=== PATIENT | female | born 1935 | race Caucasian/White ===

== ENCOUNTER → 2020-03-27 10:09 | Outpatient (BNVA) | payer MEDICARE, SELFPAY | PROVIDERS: PCP Internal Medicine; Referring Provider Internal Medicine; Visit Provider Hospitalist | DX: J44.9 Chronic obstructive pulmonary disease, unspecified (principal); J96.10 Chronic respiratory failure, unspecified whether with hypoxia or hypercapnia; Z85.118 Personal history of other malignant neoplasm of bronchus and lung; Z90.2 Acquired absence of lung [part of] | CPT/HCPCS: 99212 ==

== ENCOUNTER → 2020-06-21 11:08 | Outpatient (BNVA) | payer MEDICARE, SELFPAY | PROVIDERS: PCP Internal Medicine; Visit Provider Surgery | DX: C50.911 Malignant neoplasm of unspecified site of right female breast (principal); Z79.810 Long term (current) use of selective estrogen receptor modulators (SERMs); Z17.0 Estrogen receptor positive status [ER+] | CPT/HCPCS: 99212 ==

== ENCOUNTER 2020-07-04 | Outpatient (REF) | payer MEDICARE, SELFPAY | END 2020-07-04 00:01 | disposition home or self-care (01) | LOC: HO.VC | PROVIDERS: Visit Provider Internal Medicine | DX: Z23 Encounter for immunization (principal) | CPT/HCPCS: 0011A ==

== ENCOUNTER 2020-07-13 11:44 | Outpatient (REF) | payer MEDICARE, SELFPAY ==
[2020-07-13 13:42] LABS: MANUAL DIFF FLAG NO
[2020-07-13 13:50] LABS: Basophils Absolute Auto 0.1 X10*3/uL (0.0-0.2); Basophils Percent Auto 0.6 % (0-2); Eosinophils Absolute Auto 0.1 X10*3/uL (0.0-0.4); Eosinophils Percent Auto 1.3 % (0-4); Hematocrit 40.4 % (37-47); Hemoglobin 12.2 g/dl (12.0-16.0); Imm Gran Abs Auto 0.02 X10*3/uL (0.00-0.03); Imm Gran Pct Auto 0.2 % (0.0-0.4); Lymphocytes Absolute Auto 1.7 X10*3/uL (1.2-4.9); Mean Corpuscular HGB Conc 30.2 g/dl (31.0-35.0); Mean Corpuscular Hemoglobin 29.7 pg (27.0-33.0); Mean Corpuscular Volume 98.3 fL (80-98); Mean Platelet Volume 11.5 fL (9.4-12.3); Monocytes Absolute Auto 0.9 X10*3/uL (0.1-1.2); Monocytes Percent Auto 10.4 % (2-11); Neutrophils Absolute Auto 5.4 X10*3/uL (2.0-8.3); Neutrophils Percent Auto 66.5 % (45-73); Platelet Count 235 X10*3/uL (160-400); Red Blood Count 4.11 X10*6/uL (4.20-5.50); Red Cell Distribution Width 13.4 % (11.0-16.0); White Blood Count 8.2 X10*3/uL (4.8-10.8)
[2020-07-13 14:16] LABS: B Type Natriuretic Peptide 311 pg/mL (<100)
[2020-07-13 14:18] LABS: Alanine Aminotransferase 12 U/L (0-31); Albumin Level 3.9 g/dL (3.5-5.0); Alkaline Phosphatase 49 U/L (39-117); Anion Gap 15 (12-20); Aspartate Amino Transferase 20 U/L (5-31); Bilirubin Total 0.6 mg/dL (0.0-1.0); Blood Urea Nitrogen 21 mg/dL (9-16); Calcium 8.8 mg/dL (8.4-10.2); Carbon Dioxide 30 mmol/L (22-29); Chloride 102 mmol/L (96-108); Estimated Glomerular Filt Rate 45; Glucose Random 155 mg/dL (60-115); Potassium 4.8 mmol/L (3.3-5.1); Sodium 142 mmol/L (135-145)
[2020-07-13 14:44] LABS: Free T4 (Free Thyroxine) 1.06 ng/dL (0.71-1.85); Thyroid Stimulating Hormone 1.71 uIU/mL (0.32-4.0)
[2020-07-13 15:25] LABS: Folate > 20.0 ng/mL (> or = 4.0); Vitamin B12 1095 pg/mL (200-900)
== END 2020-07-13 11:45 | disposition home or self-care (01) ==
LOC: HO.HMGCLDS 11:44
PROVIDERS: PCP Internal Medicine; Visit Provider Internal Medicine
DX: I10 Essential (primary) hypertension (principal); E78.00 Pure hypercholesterolemia, unspecified; I25.10 Atherosclerotic heart disease of native coronary artery without angina pectoris
CPT/HCPCS: 36415; 80053; 82607; 82746; 83880; 84439; 84443; 85025

== ENCOUNTER 2020-07-31 | Outpatient (REF) | payer MEDICARE, SELFPAY | END 2020-07-31 00:01 | disposition home or self-care (01) | LOC: HO.VC | PROVIDERS: Visit Provider Internal Medicine | DX: Z23 Encounter for immunization (principal) | CPT/HCPCS: 0012A ==

== ENCOUNTER 2020-10-20 08:23 | Outpatient (REF) | payer MEDICARE, SELFPAY ==
[2020-10-20 11:20] LABS: MANUAL DIFF FLAG NO
[2020-10-20 11:25] LABS: Basophils Percent Auto 0.4 % (0-2); Eosinophils Absolute Auto 0.1 X10*3/uL (0.0-0.4); Eosinophils Percent Auto 1.3 % (0-4); Hematocrit 37.2 % (37-47); Hemoglobin 11.1 g/dl (12.0-16.0); Imm Gran Abs Auto 0.02 X10*3/uL (0.00-0.03); Imm Gran Pct Auto 0.2 % (0.0-0.4); Lymphocytes Absolute Auto 2.9 X10*3/uL (1.2-4.9); Lymphocytes Percent Auto 28.7 % (20-40); Mean Corpuscular HGB Conc 29.8 g/dl (31.0-35.0); Mean Corpuscular Hemoglobin 28.9 pg (27.0-33.0); Mean Corpuscular Volume 96.9 fL (80-98); Mean Platelet Volume 11.3 fL (9.4-12.3); Monocytes Absolute Auto 1.1 X10*3/uL (0.1-1.2); Monocytes Percent Auto 11.1 % (2-11); Neutrophils Absolute Auto 5.9 X10*3/uL (2.0-8.3); Neutrophils Percent Auto 58.3 % (45-73); Platelet Count 199 X10*3/uL (160-400); Red Blood Count 3.84 X10*6/uL (4.20-5.50); Red Cell Distribution Width 13.5 % (11.0-16.0)
[2020-10-20 11:33] LABS: Estimated Average Glucose 126 mg/dL; Total Hemoglobin (HGBA1C) 2859.2688 umol/L
[2020-10-20 11:50] LABS: Alanine Aminotransferase 10 U/L (0-31); Albumin Level 3.9 g/dL (3.5-5.0); Alkaline Phosphatase 43 U/L (39-117); Anion Gap 14 (12-20); Aspartate Amino Transferase 17 U/L (5-31); Bilirubin Total 0.6 mg/dL (0.0-1.0); Blood Urea Nitrogen 25 mg/dL (9-16); Calcium 8.9 mg/dL (8.4-10.2); Carbon Dioxide 32 mmol/L (22-29); Chloride 101 mmol/L (96-108); Cholesterol 129 mg/dL; Estimated Glomerular Filt Rate 48; Glucose Random 97 mg/dL (60-115); HDL Cholesterol 41 mg/dL; LDL Cholesterol Calculated 59 mg/dl; Potassium 4.1 mmol/L (3.3-5.1); Sodium 143 mmol/L (135-145); Total Protein 6.8 g/dL (6.5-8.0); Triglycerides 147 mg/dL
[2020-10-20 11:56] LABS: B Type Natriuretic Peptide 347 pg/mL (<100)
[2020-10-20 12:13] LABS: Free T4 (Free Thyroxine) 0.95 ng/dL (0.71-1.85); Thyroid Stimulating Hormone 2.46 uIU/mL (0.32-4.0); Vitamin D 25-OH Total 38.7 ng/mL (>30)
[2020-10-22 10:14] LABS: Folate > 20.0 ng/mL (> or = 4.0); Vitamin B12 788 pg/mL (200-900)
== END 2020-10-20 08:24 | disposition home or self-care (01) ==
LOC: HO.HMGCLDS 08:23
PROVIDERS: PCP Internal Medicine; Visit Provider Internal Medicine
DX: E78.00 Pure hypercholesterolemia, unspecified (principal); I48.0 Paroxysmal atrial fibrillation
CPT/HCPCS: 36415; 80053; 80061; 82306; 82607; 82746; 83036; 83880; 84439; 84443; 85025

== ENCOUNTER → 2020-11-20 13:01 | Outpatient (BNVA) | payer MEDICARE, SELFPAY | PROVIDERS: PCP Internal Medicine; Visit Provider Hospitalist | DX: J96.11 Chronic respiratory failure with hypoxia (principal); J43.9 Emphysema, unspecified | CPT/HCPCS: 99212 ==

== ENCOUNTER 2021-01-07 10:35 | Outpatient (REF) | payer MEDICARE, SELFPAY ==
--- NOTE | ~2021-01-07 | MM_ITS ---
EXAMINATION: MM SCREENING DIGITAL BREAST TOMOSYNTHESIS, BILATERAL CLINICAL INFORMATION: Screening. Asymptomatic. Age 85. Prior history right lumpectomy for invasive breast cancer 02/23/2017. COMPARISON: Mammography: 12/19/2019, 12/17/2018, 12/18/2017, 01/26/2017 TECHNIQUE: Digital breast tomosynthesis is performed in both the craniocaudal and mediolateral oblique views along with computer-aided detection (CAD). Synthesized 2D images are generated from the tomosynthesis. Additional exaggerated right CC view is provided. FINDINGS: There are scattered areas of fibroglandular density (ACR BI-RADS breast composition Category b). There are no significant masses, abnormal calcifications, or other abnormalities. There is surgical clip right axilla. Some minor scarring on right consistent with the prior surgery is stable. There are no significant changes from prior exams. MM/MM tomosynthesis screening BI IMPRESSION: No mammographic evidence of malignancy. ASSESSMENT: BI-RADS 2: Benign RECOMMENDATION: Routine annual mammography screening. This patient's information was entered into a reminder system with a target due date for their next mammogram.
== END 2021-01-07 10:36 | disposition home or self-care (01) ==
LOC: HO.MAMMO 10:35
PROVIDERS: PCP Internal Medicine; Visit Provider Surgery
DX: Z12.31 Encounter for screening mammogram for malignant neoplasm of breast (principal)
CPT/HCPCS: 77063; 77067

== ENCOUNTER → 2021-01-09 10:23 | Outpatient (BNVA) | payer MEDICARE, SELFPAY | PROVIDERS: PCP Internal Medicine; Referring Provider Internal Medicine; Visit Provider Surgery | DX: Z85.3 Personal history of malignant neoplasm of breast (principal) | CPT/HCPCS: 99212 ==

== ENCOUNTER 2021-02-05 08:49 | Outpatient (REF) | payer MEDICARE, SELFPAY ==
[2021-02-05 11:34] LABS: MANUAL DIFF FLAG NO
[2021-02-05 11:45] LABS: Basophils Percent Auto 0.5 % (0-2); Eosinophils Absolute Auto 0.1 X10*3/uL (0.0-0.4); Hematocrit 40.8 % (37-47); Hemoglobin 12.2 g/dl (12.0-16.0); Imm Gran Abs Auto 0.03 X10*3/uL (0.00-0.03); Imm Gran Pct Auto 0.4 % (0.0-0.4); Lymphocytes Absolute Auto 1.9 X10*3/uL (1.2-4.9); Lymphocytes Percent Auto 22.9 % (20-40); Mean Corpuscular HGB Conc 29.9 g/dl (31.0-35.0); Mean Corpuscular Hemoglobin 28.4 pg (27.0-33.0); Mean Corpuscular Volume 95.1 fL (80-98); Mean Platelet Volume 11.2 fL (9.4-12.3); Monocytes Absolute Auto 0.8 X10*3/uL (0.1-1.2); Monocytes Percent Auto 9.9 % (2-11); Neutrophils Absolute Auto 5.3 X10*3/uL (2.0-8.3); Neutrophils Percent Auto 65.3 % (45-73); Platelet Count 207 X10*3/uL (160-400); Red Blood Count 4.29 X10*6/uL (4.20-5.50); Red Cell Distribution Width 14.2 % (11.0-16.0); Reticulocyte Percent 2.1 % (0.5-1.8); Reticulocytes Absolute 0.092 X10*6/uL (0.026-0.095); White Blood Count 8.1 X10*3/uL (4.8-10.8)
[2021-02-05 12:02] LABS: B Type Natriuretic Peptide 418 pg/mL (<100)
[2021-02-05 12:19] LABS: Alanine Aminotransferase 11 U/L (0-31); Albumin Level 4.1 g/dL (3.5-5.0); Alkaline Phosphatase 48 U/L (39-117); Anion Gap 12 (12-20); Aspartate Amino Transferase 21 U/L (5-31); Bilirubin Total 0.7 mg/dL (0.0-1.0); Blood Urea Nitrogen 25 mg/dL (9-16); Calcium 9.1 mg/dL (8.4-10.2); Carbon Dioxide 29 mmol/L (22-29); Chloride 105 mmol/L (96-108); Estimated Glomerular Filt Rate 48; Glucose Random 104 mg/dL (60-115); Iron 98 mcg/dL (30-160); Percent Iron Saturation 23 % (15-50); Potassium 4.2 mmol/L (3.3-5.1); Sodium 142 mmol/L (135-145); Total Iron Binding Capacity 424 mcg/dL (228-428); Total Protein 7.3 g/dL (6.5-8.0); Unsaturated Iron Binding 326 ug/dL
[2021-02-05 12:25] LABS: Ferritin 56 ng/mL (10-250)
[2021-02-05 12:39] LABS: Folate > 20.0 ng/mL (> or = 4.0); Vitamin B12 880 pg/mL (200-900)
== END 2021-02-05 08:50 | disposition home or self-care (01) ==
LOC: HO.HMGCLDS 08:49
PROVIDERS: PCP Internal Medicine; Visit Provider Internal Medicine
DX: J43.9 Emphysema, unspecified (principal); J96.11 Chronic respiratory failure with hypoxia; I50.9 Heart failure, unspecified; D64.9 Anemia, unspecified; I48.0 Paroxysmal atrial fibrillation; Z85.118 Personal history of other malignant neoplasm of bronchus and lung; Z99.81 Dependence on supplemental oxygen; Z87.891 Personal history of nicotine dependence
CPT/HCPCS: 36415; 80053; 82607; 82728; 82746; 83540; 83880; 85025; 85045; 99212

== ENCOUNTER 2021-05-13 09:09 | Outpatient (REF) | payer MEDICARE, SELFPAY ==
[2021-05-13 11:45] LABS: MANUAL DIFF FLAG NO
[2021-05-13 11:59] LABS: Basophils Absolute Auto 0.1 X10*3/uL (0.0-0.2); Basophils Percent Auto 0.7 % (0-2); Eosinophils Absolute Auto 0.1 X10*3/uL (0.0-0.4); Eosinophils Percent Auto 1.4 % (0-4); Hematocrit 41.4 % (37.0-47.0); Hemoglobin 12.5 g/dl (12.0-16.0); Imm Gran Abs Auto 0.03 X10*3/uL (0.00-0.03); Imm Gran Pct Auto 0.3 % (0.0-0.4); Lymphocytes Absolute Auto 2.2 X10*3/uL (1.2-4.9); Lymphocytes Percent Auto 25.4 % (20-40); Mean Corpuscular HGB Conc 30.2 g/dl (31.0-35.0); Mean Corpuscular Hemoglobin 29.4 pg (27.0-33.0); Mean Corpuscular Volume 97.4 fL (80.0-98.0); Mean Platelet Volume 11.6 fL (9.4-12.3); Monocytes Absolute Auto 0.8 X10*3/uL (0.1-1.2); Monocytes Percent Auto 9.5 % (2-11); Neutrophils Absolute Auto 5.4 x10*3/uL (2.0-8.3); Neutrophils Percent Auto 62.7 % (45-73); Platelet Count 217 X10*3/uL (160-400); Red Blood Count 4.25 X10*6/uL (4.20-5.50); Red Cell Distribution Width 13.8 % (11.0-16.0); White Blood Count 8.7 X10*3/uL (4.8-10.8)
[2021-05-13 12:15] LABS: B Type Natriuretic Peptide 332 pg/mL (<100)
[2021-05-13 12:29] LABS: Alanine Aminotransferase 11 U/L (0-31); Albumin Level 3.9 g/dL (3.5-5.0); Alkaline Phosphatase 43 U/L (39-117); Anion Gap 14 (12-20); Aspartate Amino Transferase 21 U/L (5-31); Bilirubin Total 0.7 mg/dL (0.0-1.0); Blood Urea Nitrogen 25 mg/dL (9-16); Calcium 8.9 mg/dL (8.4-10.2); Carbon Dioxide 28 mmol/L (22-29); Chloride 103 mmol/L (96-108); Estimated Glomerular Filt Rate 48; Glucose Random 106 mg/dL (60-115); Sodium 141 mmol/L (135-145)
== END 2021-05-13 09:10 | disposition home or self-care (01) ==
LOC: HO.HMGCLDS 09:09
PROVIDERS: PCP Internal Medicine; Visit Provider Internal Medicine
DX: I50.9 Heart failure, unspecified (principal)
CPT/HCPCS: 36415; 80053; 83880; 85025

== ENCOUNTER → 2021-08-05 11:40 | Outpatient (BNVA) | payer MEDICARE, SELFPAY | PROVIDERS: PCP Internal Medicine; Referring Provider Internal Medicine; Visit Provider Surgery | DX: Z85.3 Personal history of malignant neoplasm of breast (principal) | CPT/HCPCS: 99212 ==

== ENCOUNTER 2021-09-09 08:49 | Outpatient (REF) | payer MEDICARE, SELFPAY ==
[2021-09-09 11:09] LABS: MANUAL DIFF FLAG NO
[2021-09-09 11:32] LABS: Basophils Percent Auto 0.4 % (0-2); Eosinophils Absolute Auto 0.1 X10*3/uL (0.0-0.4); Eosinophils Percent Auto 0.9 % (0-4); Hematocrit 40.9 % (37.0-47.0); Hemoglobin 12.3 g/dl (12.0-16.0); Imm Gran Abs Auto 0.04 X10*3/uL (0.00-0.03); Imm Gran Pct Auto 0.4 % (0.0-0.4); Lymphocytes Absolute Auto 2.1 X10*3/uL (1.2-4.9); Lymphocytes Percent Auto 21.1 % (20-40); Mean Corpuscular HGB Conc 30.1 g/dl (31.0-35.0); Mean Corpuscular Hemoglobin 29.6 pg (27.0-33.0); Mean Corpuscular Volume 98.6 fL (80.0-98.0); Mean Platelet Volume 11.7 fL (9.4-12.3); Monocytes Percent Auto 9.9 % (2-11); Neutrophils Absolute Auto 6.6 x10*3/uL (2.0-8.3); Neutrophils Percent Auto 67.3 % (45-73); Platelet Count 194 X10*3/uL (160-400); Red Blood Count 4.15 X10*6/uL (4.20-5.50); Red Cell Distribution Width 13.1 % (11.0-16.0); White Blood Count 9.9 X10*3/uL (4.8-10.8)
[2021-09-09 11:43] LABS: Alanine Aminotransferase 10 U/L (0-31); Albumin Level 3.9 g/dL (3.5-5.0); Alkaline Phosphatase 45 U/L (39-117); Anion Gap 15 (12-20); Aspartate Amino Transferase 20 U/L (5-31); Bilirubin Total 0.8 mg/dL (0.0-1.0); Blood Urea Nitrogen 23 mg/dL (9-16); Carbon Dioxide 28 mmol/L (22-29); Chloride 102 mmol/L (96-108); Estimated Glomerular Filt Rate 50; Glucose Random 120 mg/dL (60-115); Potassium 3.9 mmol/L (3.3-5.1); Sodium 141 mmol/L (135-145)
[2021-09-09 11:53] LABS: B Type Natriuretic Peptide 496 pg/mL (<100)
== END 2021-09-09 08:50 | disposition home or self-care (01) ==
LOC: HO.HMGCLDS 08:49
PROVIDERS: PCP Internal Medicine; Visit Provider Internal Medicine
DX: I50.9 Heart failure, unspecified (principal)
CPT/HCPCS: 36415; 80053; 83880; 85025

== ENCOUNTER → 2021-10-01 11:02 | Outpatient (BNVA) | payer MEDICARE, SELFPAY | PROVIDERS: PCP Internal Medicine; Visit Provider Hospitalist | DX: J43.9 Emphysema, unspecified (principal); J96.11 Chronic respiratory failure with hypoxia; I50.9 Heart failure, unspecified; Z79.899 Other long term (current) drug therapy; Z99.81 Dependence on supplemental oxygen | CPT/HCPCS: 99212 ==

== ENCOUNTER 2021-10-29 09:28 | Outpatient (REF) | payer MEDICARE, SELFPAY ==
[2021-10-29 11:21] LABS: MANUAL DIFF FLAG NO
[2021-10-29 11:36] LABS: Basophils Absolute Auto 0.1 X10*3/uL (0.0-0.2); Basophils Percent Auto 0.6 % (0-2); Eosinophils Absolute Auto 0.1 X10*3/uL (0.0-0.4); Eosinophils Percent Auto 1.2 % (0-4); Hematocrit 39.2 % (37.0-47.0); Hemoglobin 11.8 g/dl (12.0-16.0); Imm Gran Abs Auto 0.02 X10*3/uL (0.00-0.03); Imm Gran Pct Auto 0.2 % (0.0-0.4); Lymphocytes Absolute Auto 1.9 X10*3/uL (1.2-4.9); Lymphocytes Percent Auto 22.4 % (20-40); Mean Corpuscular HGB Conc 30.1 g/dl (31.0-35.0); Mean Corpuscular Hemoglobin 29.4 pg (27.0-33.0); Mean Corpuscular Volume 97.5 fL (80.0-98.0); Mean Platelet Volume 11.7 fL (9.4-12.3); Monocytes Absolute Auto 0.9 X10*3/uL (0.1-1.2); Monocytes Percent Auto 10.6 % (2-11); Neutrophils Absolute Auto 5.5 x10*3/uL (2.0-8.3); Platelet Count 207 X10*3/uL (160-400); Red Blood Count 4.02 X10*6/uL (4.20-5.50); Red Cell Distribution Width 13.9 % (11.0-16.0); White Blood Count 8.4 X10*3/uL (4.8-10.8)
[2021-10-29 12:03] LABS: Estimated Average Glucose 131 mg/dL; Hemoglobin A1c % 6.2 %
[2021-10-29 12:06] LABS: B Type Natriuretic Peptide 358 pg/mL (<100)
[2021-10-29 12:30] LABS: Free T4 (Free Thyroxine) 1.08 ng/dL (0.71-1.85); Thyroid Stimulating Hormone 2.15 uIU/mL (0.32-4.0); Vitamin D 25-OH Total 37.9 ng/mL (>30)
[2021-10-29 12:36] LABS: Alanine Aminotransferase 12 U/L (0-31); Albumin Level 3.8 g/dL (3.5-5.0); Alkaline Phosphatase 45 U/L (39-117); Anion Gap 13 (12-20); Aspartate Amino Transferase 20 U/L (5-31); Bilirubin Total 0.7 mg/dL (0.0-1.0); Blood Urea Nitrogen 24 mg/dL (9-16); Calcium 9.2 mg/dL (8.4-10.2); Carbon Dioxide 31 mmol/L (22-29); Chloride 102 mmol/L (96-108); Cholesterol 138 mg/dL; Estimated Glomerular Filt Rate 48; Glucose Random 108 mg/dL (60-115); HDL Cholesterol 39 mg/dL; LDL Cholesterol Calculated 67 mg/dl; Potassium 4.3 mmol/L (3.3-5.1); Sodium 142 mmol/L (135-145); Total Protein 7.2 g/dL (6.5-8.0); Triglycerides 163 mg/dL
[2021-10-29 12:49] LABS: Folate > 20.0 ng/mL (> or = 4.0); Vitamin B12 579 pg/mL (200-900)
== END 2021-10-29 09:29 | disposition home or self-care (01) ==
LOC: HO.HMGCLDS 09:28
PROVIDERS: PCP Internal Medicine; Visit Provider Internal Medicine
DX: I50.9 Heart failure, unspecified (principal); E78.00 Pure hypercholesterolemia, unspecified; E11.9 Type 2 diabetes mellitus without complications; M81.0 Age-related osteoporosis without current pathological fracture
CPT/HCPCS: 36415; 80053; 80061; 82306; 82607; 82746; 83036; 83880; 84439; 84443; 85025

== ENCOUNTER 2022-01-09 10:55 | Outpatient (REF) | payer MEDICARE, SELFPAY ==
--- NOTE | ~2022-01-09 | MM_ITS ---
EXAMINATION: MM SCREENING DIGITAL BREAST TOMOSYNTHESIS, BILATERAL CLINICAL INFORMATION: Screening. Asymptomatic. COMPARISON: Mammography: 01/07/2021, 12/19/2019, 12/17/2018 TECHNIQUE: Digital breast tomosynthesis is performed in both the craniocaudal and mediolateral oblique views along with computer-aided detection (CAD). Synthesized 2D images are generated from the tomosynthesis. FINDINGS: There are scattered areas of fibroglandular density (ACR BI-RADS breast composition Category b). There are no significant masses, abnormal calcifications, or other abnormalities. No developing density or interval architectural abnormality. Right axillary surgical clips again seen. There are scattered vascular calcifications. No significant changes. MM/MM tomosynthesis screening BI IMPRESSION: No mammographic evidence of malignancy. ASSESSMENT: BI-RADS 2: Benign RECOMMENDATION: Routine annual mammography screening. This patient's information was entered into a reminder system with a target due date for their next mammogram.
== END 2022-01-09 10:56 | disposition home or self-care (01) ==
LOC: HO.MAMMO 10:55
PROVIDERS: PCP Internal Medicine; Visit Provider Internal Medicine
DX: Z12.31 Encounter for screening mammogram for malignant neoplasm of breast (principal)
CPT/HCPCS: 77063; 77067

== ENCOUNTER 2022-02-06 09:18 | Outpatient (REF) | payer MEDICARE, SELFPAY ==
[2022-02-06 11:17] LABS: MANUAL DIFF FLAG NO
[2022-02-06 11:45] LABS: Basophils Absolute Auto 0.1 X10*3/uL (0.0-0.2); Basophils Percent Auto 0.6 % (0-2); Eosinophils Absolute Auto 0.1 X10*3/uL (0.0-0.4); Eosinophils Percent Auto 1.3 % (0-4); Hematocrit 39.6 % (37.0-47.0); Hemoglobin 12.1 g/dl (12.0-16.0); Imm Gran Abs Auto 0.03 X10*3/uL (0.00-0.03); Imm Gran Pct Auto 0.3 % (0.0-0.4); Immature Retic Fraction 11.5 % (3.0-15.9); Lymphocytes Absolute Auto 2.3 X10*3/uL (1.2-4.9); Lymphocytes Percent Auto 24.7 % (20-40); Mean Corpuscular HGB Conc 30.6 g/dl (31.0-35.0); Mean Corpuscular Hemoglobin 29.4 pg (27.0-33.0); Mean Corpuscular Volume 96.1 fL (80.0-98.0); Mean Platelet Volume 11.8 fL (9.4-12.3); Monocytes Percent Auto 10.9 % (2-11); Neutrophils Absolute Auto 5.8 x10*3/uL (2.0-8.3); Neutrophils Percent Auto 62.2 % (45-73); Platelet Count 197 X10*3/uL (160-400); Red Blood Count 4.12 X10*6/uL (4.20-5.50); Red Cell Distribution Width 13.5 % (11.0-16.0); Retic HGB Equivalent 32.5 pg (30.0-35.0); Reticulocytes Absolute 0.083 X10*6/uL (0.026-0.095); White Blood Count 9.3 X10*3/uL (4.8-10.8)
[2022-02-06 12:14] LABS: B Type Natriuretic Peptide 391 pg/mL (<100)
[2022-02-06 12:32] LABS: Alanine Aminotransferase 11 U/L (0-31); Albumin Level 3.8 g/dL (3.5-5.0); Alkaline Phosphatase 50 U/L (39-117); Anion Gap 17 (12-20); Aspartate Amino Transferase 21 U/L (5-31); Bilirubin Total 0.9 mg/dL (0.0-1.0); Blood Urea Nitrogen 23 mg/dL (9-16); Calcium 8.9 mg/dL (8.4-10.2); Carbon Dioxide 31 mmol/L (22-29); Chloride 100 mmol/L (96-108); Estimated Glomerular Filt Rate 51; Glucose Random 121 mg/dL (60-115); Iron 78 mcg/dL (30-160); Percent Iron Saturation 19 % (15-50); Sodium 144 mmol/L (135-145); Total Iron Binding Capacity 405 mcg/dL (228-428); Total Protein 7.1 g/dL (6.5-8.0); Unsaturated Iron Binding 327 ug/dL
[2022-02-06 12:55] LABS: Ferritin 75 ng/mL (10-250)
== END 2022-02-06 09:19 | disposition home or self-care (01) ==
LOC: HO.HMGCLDS 09:18
PROVIDERS: PCP Internal Medicine; Visit Provider Internal Medicine
DX: I50.9 Heart failure, unspecified (principal)
CPT/HCPCS: 36415; 80053; 82728; 83540; 83880; 85025; 85045

== ENCOUNTER 2022-02-27 10:52 | Outpatient (REF) | payer MEDICARE, SELFPAY ==
--- NOTE | ~2022-02-27 | MM_ITS ---
EXAMINATION: BONE DENSITOMETRY CLINICAL INDICATION: Age-related osteoporosis without current pathological fracture. COMPARISON: Previous BD dated 01/25/2020 and baseline BD dated 03/10/2017. TECHNIQUE: Using a [employer] DXA System (software version: 13.1) manufactured by [employer], dual-energy x-ray absorptiometry was performed of the lumbar spine and left hip. The images are of good technical quality. Summary results are attached. FINDINGS: AP SPINE L1-L4: Current: BMD 1.217 g/cm2, Z-score 1.7, T-score 0.3, normal, 4.8% decrease from previous, 6.8% increase from baseline (<5% change is not significant). Prior: BMD 1.279 g/cm2. Baseline: BMD 1.140 g/cm2. LEFT FEMUR, NECK: Current: BMD 0.740 g/cm2, Z-score 0.0, T-score -2.1, osteopenia. Prior: BMD 0.722 g/cm2. Baseline: BMD 0.739 g/cm2. LEFT FEMUR, TOTAL: Current: BMD 0.871 g/cm2, Z-score 0.9, T-score -1.1, osteopenia, 2.6% decrease from previous, 1.2% decrease from baseline (<5% change is not significant). Prior: BMD 0.894 g/cm2. Baseline: BMD 0.882 g/cm2. IDENTIFIED RISK FACTORS: Menopause. HISTORY OF FRACTURE: None listed. MEDICATIONS: Vitamin D. MM/XR DEXA axial skeleton IMPRESSION: 1. DIAGNOSIS: Osteopenia based on the lowest T-score value of -2.1 in the femoral neck applying World Health Organization criteria. 2. 10-YEAR FRACTURE RISK PREDICTION, FRAX: Major osteoporotic fracture (clinical spine, forearm, hip or shoulder) 14.2%. Hip fracture 4.6%. 3. Treatment Recommendations: NOF guidelines recommend consideration for treatment in postmenopausal women and men age 50 and older presenting with the following: -A hip or vertebral (clinical or morphometric) fracture. -T-score less than or equal to -2.5 at the femoral neck or spine after appropriate evaluation to exclude secondary causes. -Low bone mass at the hip or spine and a 10-year fracture probability by FRAX of greater than or equal to 3% for hip fracture or greater than or equal to 20% for major osteoporotic fracture based on the [place] adapted WHO algorithm. 4. Other Recommendations: All treatment decisions require clinical judgment and consideration of individual patient factors, including patient preferences, comorbidities, previous drug use, risk factors not captured in the FRAX model (e.g. frailty, falls, vitamin D deficiency, increased bone turnover, interval significant decline in bone density) and possible under or overestimation of fracture risk by FRAX. Additional medical evaluation for secondary cause of low bone mineral density may be appropriate. FUTURE SCAN RECOMMENDATION: People with diagnosed cases of osteoporosis or at high risk for fracture should have regular bone mineral density tests. For patients eligible for Medicare, routine testing is allowed once every 2 years. The testing frequency can be increased to one year for patients who have rapidly progressing disease, those who are receiving or discontinuing medical therapy to restore bone mass, or have additional risk factors.
== END 2022-02-27 10:53 | disposition home or self-care (01) ==
LOC: HO.MAMMO 10:52
PROVIDERS: PCP Internal Medicine; Visit Provider Internal Medicine
DX: Z13.820 Encounter for screening for osteoporosis (principal); M81.0 Age-related osteoporosis without current pathological fracture; Z78.0 Asymptomatic menopausal state
CPT/HCPCS: 77080

== ENCOUNTER 2022-06-05 09:22 | Outpatient (REF) | payer MEDICARE, SELFPAY ==
[2022-06-05 11:21] LABS: MANUAL DIFF FLAG NO
[2022-06-05 11:44] LABS: Basophils Absolute Auto 0.1 X10*3/uL (0.0-0.2); Basophils Percent Auto 0.6 % (0-2); Eosinophils Absolute Auto 0.1 X10*3/uL (0.0-0.4); Eosinophils Percent Auto 1.2 % (0-4); Hematocrit 40.3 % (37.0-47.0); Hemoglobin 12.3 g/dl (12.0-16.0); Imm Gran Abs Auto 0.03 X10*3/uL (0.00-0.03); Imm Gran Pct Auto 0.4 % (0.0-0.4); Lymphocytes Percent Auto 23.9 % (20-40); Mean Corpuscular HGB Conc 30.5 g/dl (31.0-35.0); Mean Corpuscular Hemoglobin 28.7 pg (27.0-33.0); Mean Corpuscular Volume 93.9 fL (80.0-98.0); Mean Platelet Volume 11.7 fL (9.4-12.3); Monocytes Absolute Auto 0.9 X10*3/uL (0.1-1.2); Monocytes Percent Auto 10.9 % (2-11); Neutrophils Absolute Auto 5.3 x10*3/uL (2.0-8.3); Platelet Count 188 X10*3/uL (160-400); Red Blood Count 4.29 X10*6/uL (4.20-5.50); Red Cell Distribution Width 14.2 % (11.0-16.0); White Blood Count 8.4 X10*3/uL (4.8-10.8)
[2022-06-05 11:52] LABS: Estimated Average Glucose 131 mg/dL; Hemoglobin A1c % 6.2 %
[2022-06-05 12:05] LABS: Alanine Aminotransferase 8 U/L (0-31); Albumin Level 3.7 g/dL (3.5-5.0); Alkaline Phosphatase 54 U/L (39-117); Anion Gap 13 (12-20); Aspartate Amino Transferase 19 U/L (5-31); Bilirubin Total 0.9 mg/dL (0.0-1.0); Blood Urea Nitrogen 20 mg/dL (9-16); Calcium 8.9 mg/dL (8.4-10.2); Carbon Dioxide 31 mmol/L (22-29); Chloride 103 mmol/L (96-108); Estimated Glomerular Filt Rate 48; Glucose Random 112 mg/dL (60-115); Potassium 4.1 mmol/L (3.3-5.1); Sodium 143 mmol/L (135-145); Total Protein 6.8 g/dL (6.5-8.0)
[2022-06-05 12:09] LABS: B Type Natriuretic Peptide 390 pg/mL (<100)
[2022-06-05 12:31] LABS: Vitamin D 25-OH Total 35.2 ng/mL (>30)
[2022-06-05 12:39] LABS: Folate > 20.0 ng/mL (> or = 4.0); Vitamin B12 837 pg/mL (200-900)
== END 2022-06-05 09:23 | disposition home or self-care (01) ==
LOC: HO.HMGCLDS 09:22
PROVIDERS: PCP Internal Medicine; Visit Provider Internal Medicine
DX: E11.65 Type 2 diabetes mellitus with hyperglycemia (principal); I50.9 Heart failure, unspecified
CPT/HCPCS: 36415; 80053; 82306; 82607; 82746; 83036; 83880; 85025

== ENCOUNTER 2022-08-20 11:13 | Outpatient (REF) | payer MEDICARE, SELFPAY ==
--- NOTE | ~2022-08-20 | XR_ITS ---
EXAMINATION: XR CHEST CLINICAL INFORMATION: Chronic obstructive pulmonary disease COMPARISON: 02/21/2020 TECHNIQUE: 2 views of the chest were obtained. FINDINGS: Exam is similar to previous. Chronic changes in the mid to lower lung zone on the right. The left lung is grossly clear comparable to previous. There is no effusion. No failure. Surgical clips associated with the mediastinum similar position to previous. The hilar regions are felt to be comparable. XR/XR chest 2V IMPRESSION: No convincing evidence for an acute process.
[2022-08-20 13:43] LABS: MANUAL DIFF FLAG NO
[2022-08-20 13:59] LABS: Basophils Absolute Auto 0.1 X10*3/uL (0.0-0.2); Basophils Percent Auto 0.7 % (0-2); Eosinophils Percent Auto 0.5 % (0-4); Hematocrit 40.9 % (37.0-47.0); Hemoglobin 12.2 g/dl (12.0-16.0); Imm Gran Abs Auto 0.03 X10*3/uL (0.00-0.03); Imm Gran Pct Auto 0.4 % (0.0-0.4); Lymphocytes Absolute Auto 1.4 X10*3/uL (1.2-4.9); Lymphocytes Percent Auto 17.4 % (20-40); Mean Corpuscular HGB Conc 29.8 g/dl (31.0-35.0); Mean Corpuscular Hemoglobin 28.9 pg (27.0-33.0); Mean Corpuscular Volume 96.9 fL (80.0-98.0); Mean Platelet Volume 11.9 fL (9.4-12.3); Monocytes Absolute Auto 0.9 X10*3/uL (0.1-1.2); Monocytes Percent Auto 10.7 % (2-11); Neutrophils Absolute Auto 5.7 x10*3/uL (2.0-8.3); Neutrophils Percent Auto 70.3 % (45-73); Platelet Count 274 X10*3/uL (160-400); Red Blood Count 4.22 X10*6/uL (4.20-5.50); Red Cell Distribution Width 14.4 % (11.0-16.0); White Blood Count 8.1 X10*3/uL (4.8-10.8)
[2022-08-20 14:11] LABS: Alanine Aminotransferase 12 U/L (0-31); Albumin Level 3.7 g/dL (3.5-5.0); Alkaline Phosphatase 59 U/L (39-117); Anion Gap 15 (12-20); Aspartate Amino Transferase 19 U/L (5-31); Bilirubin Total 1.1 mg/dL (0.0-1.0); Blood Urea Nitrogen 19 mg/dL (9-16); Calcium 8.9 mg/dL (8.4-10.2); Carbon Dioxide 33 mmol/L (22-29); Chloride 99 mmol/L (96-108); Estimated Glomerular Filt Rate 51; Glucose Random 149 mg/dL (60-115); Potassium 4.3 mmol/L (3.3-5.1); Sodium 143 mmol/L (135-145)
[2022-08-20 14:34] LABS: B Type Natriuretic Peptide 390 pg/mL (<100)
== END 2022-08-20 11:14 | disposition home or self-care (01) ==
LOC: HO.HMGCX 11:13
PROVIDERS: PCP Internal Medicine; Visit Provider Internal Medicine
DX: I50.9 Heart failure, unspecified (principal); J44.9 Chronic obstructive pulmonary disease, unspecified
CPT/HCPCS: 36415; 71046; 80053; 83880; 85025

== ENCOUNTER 2022-12-11 09:54 | Outpatient (REF) | payer MEDICARE, SELFPAY ==
[2022-12-11 13:14] LABS: MANUAL DIFF FLAG NO
[2022-12-11 13:38] LABS: Basophils Percent Auto 0.4 % (0-2); Eosinophils Absolute Auto 0.1 X10*3/uL (0.0-0.4); Eosinophils Percent Auto 0.8 % (0-4); Hematocrit 39.3 % (37.0-47.0); Hemoglobin 11.3 g/dl (12.0-16.0); Imm Gran Abs Auto 0.04 X10*3/uL (0.00-0.03); Imm Gran Pct Auto 0.4 % (0.0-0.4); Lymphocytes Absolute Auto 1.6 X10*3/uL (1.2-4.9); Lymphocytes Percent Auto 15.5 % (20-40); Mean Corpuscular HGB Conc 28.8 g/dl (31.0-35.0); Mean Corpuscular Hemoglobin 27.8 pg (27.0-33.0); Mean Corpuscular Volume 96.8 fL (80.0-98.0); Monocytes Absolute Auto 1.2 X10*3/uL (0.1-1.2); Monocytes Percent Auto 11.9 % (2-11); Neutrophils Absolute Auto 7.1 x10*3/uL (2.0-8.3); Platelet Count 228 X10*3/uL (160-400); Red Blood Count 4.06 X10*6/uL (4.20-5.50)
[2022-12-11 13:45] LABS: Estimated Average Glucose 126 mg/dL
[2022-12-11 13:59] LABS: Alanine Aminotransferase 7 U/L (0-31); Albumin Level 3.9 g/dL (3.5-5.0); Alkaline Phosphatase 71 U/L (39-117); Anion Gap 15 (12-20); Aspartate Amino Transferase 17 U/L (5-31); Bilirubin Total 1.4 mg/dL (0.0-1.0); Blood Urea Nitrogen 20 mg/dL (9-16); Calcium 10.1 mg/dL (8.4-10.2); Carbon Dioxide 33 mmol/L (22-29); Chloride 101 mmol/L (96-108); Cholesterol 135 mg/dL; Estimated Glomerular Filt Rate 60; Glucose Random 143 mg/dL (60-115); HDL Cholesterol 42 mg/dL; LDL Cholesterol Calculated 78 mg/dl; Potassium 4.1 mmol/L (3.3-5.1); Sodium 145 mmol/L (135-145); Total Protein 7.9 g/dL (6.5-8.0); Triglycerides 79 mg/dL
[2022-12-11 14:19] LABS: Vitamin D 25-OH Total 37.7 ng/mL (>30)
[2022-12-11 14:22] LABS: Folate 15.6 ng/mL (> or = 4.0); Vitamin B12 1130 pg/mL (200-900)
[2022-12-11 14:27] LABS: B Type Natriuretic Peptide 534 pg/mL (<100)
== END 2022-12-11 09:55 | disposition home or self-care (01) ==
LOC: HO.HMGCLDS 09:54
PROVIDERS: PCP Internal Medicine; Visit Provider Internal Medicine
DX: I50.9 Heart failure, unspecified (principal); E11.65 Type 2 diabetes mellitus with hyperglycemia; E78.00 Pure hypercholesterolemia, unspecified; E55.9 Vitamin D deficiency, unspecified
CPT/HCPCS: 36415; 80053; 80061; 82306; 82607; 82746; 83036; 83880; 84439; 84443; 85025

== ENCOUNTER 2023-01-01 10:50 | Outpatient (AMB) | payer MEDICARE, SELFPAY ==
[2023-01-01 11:20] VITALS: BP 138/72; O2SAT 90; BMI 33.6
--- NOTE | 2023-01-01 11:20 | MHC.PC.OV ---
Vital Signs 01/01/23 11:20 Height 5 ft Weight 172 lb BMI 33.6 BP 138/72 Blood Pressure Location Lt brachial Position Sitting Pulse Source Pulse Oximeter Pulse Oximetry (%) 90 L Oxygen Delivery Method Nasal Cannula Intake Visit Reasons: CHF, A fib Allergies ADONIS Inhibitors [Adonis Inhibitors] Allergy (Severe, Verified 01/01/23 11:21) ANGIOEDEMA Sulfa (Sulfonamide Antibiotics) [Sulfa (Sulfonamides)] Allergy (Intermediate, Verified 01/01/23 11:21) CHILLS Tobacco use date assessed: 06/12/22 Fall risk assessment: No Falls in past year Last assessed Fall Risk: 01/01/23 Dental Screening Dental Screen Date: 01/01/23 Did you have a dental visit in the last 12 months?: Yes Did you have a dental problem in the last 6 months where you did not have access to dental care?: No Was dental information given to patient?: Patient has dentist HPI CHF, A fib HPI Details 87-year-old obese female with diabetes mellitus controlled atrial fibrillation with congestive heart failure coronary artery disease hypertension hypercholesterolemia and COPD last seen in August and was advised blood work. Patient is here for follow-up. PAtient was feeling sick ;last month and advisedx hospital but patient declined - presently better- had chest pain-. increased Oxygen to constant flow [facility] Medical History (Updated 06/12/22 @ 12:51 by Radha Ramsey MD) Age-related osteoporosis without current pathological fracture Anemia Atrial fibrillation Breast cancer Congestive heart failure COPD (chronic obstructive pulmonary disease) Coronary artery disease Degenerative disc disease Diverticular disease History of right breast cancer HTN (hypertension) Hypercholesterolemia Mesenteric ischemia Obesity (BMI 30-39.9) Peripheral vascular disease Small cell lung cancer, right lower lobe TIA (transient ischemic attack) Surgical History H/O resection of small bowel History of lumpectomy of right breast Family History (Updated 09/23/22 @ 10:04 by Renetta Sumner CMA) Father Heart disease Mother Heart disease Brother Multiple myeloma Brother Lung cancer Social History Household Members: None Housing: Apartment Are you a primary reproductive healthcare assistant to a significant other at home: No Do you presently have visiting nurse or other home services: No Alcohol intake: never Patient Tobacco Use Status: Former Tobacco user Tobacco use type: Cigarette e-Cigarette/Vaping Use: Never Used Second Hand Smoke Exposure: No service: No Current occupational status: retired Current occupational exposures/hazards: No Cognitive needs: No Hearing needs: Yes Vision needs: Yes Questionnaire PHQ-9 Over the last 2 weeks, how often have you been bothered by any of the following problems? 1. Little interest or pleasure in doing things: not at all 2. Feeling down, depressed, or hopeless: not at all 3. Trouble falling or staying asleep, or sleeping too much: not at all 4. Feeling tired or having little energy: not at all 5. Poor appetite or overeating: not at all 6. Feeling bad about yourself - or that you are a failure or have let yourself or your family down: not at all 7. Trouble concentrating on things, such as reading the newspaper or watching television: not at all 8. Moving or speaking so slowly that other people could have noticed. Or the opposite - being so fidgety or restless that you have been moving around a lot more than usual: not at all 9. Thoughts that you would be better off or of hurting yourself in some way: not at all Total score: 0 Depression Screening Interpretation: Negative Source: Developed by Drs. Navin Almeida, Ene Fuentes, James Miller and colleagues, with an educational daniel from [employer]. Thrive Questionnaire Date Thrive assessed: 06/12/22 AUDIT C Alcohol Use Questionnaire (AUDIT-C) 1. How often do you have a drink containing alcohol?: Monthly or less 2. How many drinks containing alcohol do you have on a typical day when you are drinking?: 1 or 2 3. How often do you have six or more drinks on one occasion?: Never Total Score: 1 DILLON-7 AMB Questionnaire DILLON-7 Date DILLON - 7 assessed: 06/12/22 Source: Developed by Drs. Navin Almeida, Ene Fuentes, James Miller and colleagues, with an educational daniel from [employer]. Physical exam (Primary Care) Vital Signs: Last Vital Signs BP 138/72 01/01/23 11:20 Pulse Ox 90 L 01/01/23 11:20 Oxygen Delivery Method Nasal Cannula 01/01/23 11:20 BMI result Body Mass Index 33.6 Tobacco/Smoking Status: Tobacco use Status Tobacco use date assessed 06/12/22 01/01/23 11:21 Patient Tobacco Use Status Former Tobacco user 01/01/23 11:21 Tobacco use type Cigarette 01/01/23 11:21 e-Cigarette/Vaping Use Never Used 01/01/23 11:21 PHQ-9: PHQ-9 Score PHQ-9: Total score 0 01/01/23 11:47 Depression Screening Interpretation: Negative Thrive Assessment: Date of Thrive Assessment Date Thrive assessed 06/12/22 01/01/23 11:21 Const General: alert; No acute distress Eyes Conjunctivae: conjunctivae normal Resp Auscultation: clear to auscultation bilaterally Cardio Rate: regular rate Rhythm: regular rhythm GI Inspection: Yes normal to inspection Extrem General: Yes normal to inspection and No edema Assessment and Plan Assessment & Plan (1) Type 2 diabetes mellitus with hyperglycemia: Code(s): E11.65 - Type 2 diabetes mellitus with hyperglycemia Plan: Decrease the amount of carbohydrate intake, pasta, bread, rice and potatoes are all sugar and that is aside from all the sweet stuff, remember that fruits are good but they are Sweet also. Hemoglobin A1c goal of less than 7.0 patient is at goal (2) Atrial fibrillation: Code(s): I48.91 - Unspecified atrial fibrillation Qualifiers: Atrial fibrillation type: paroxysmal Qualified Code(s): I48.0 - Paroxysmal atrial fibrillation Plan: Continue with anticoagulation and metoprolol (3) Congestive heart failure: Code(s): I50.9 - Heart failure, unspecified Plan: Continue with diuretics furosemide and diltiazem (4) Coronary artery disease: Comment: Echocardiogram May 2018 EF 60-65% moderate pulmonary hypertension, echo December 2018 EF 45-50% pulmonary hypertension Code(s): I25.10 - Atherosclerotic heart disease of [place] coronary artery without angina pectoris Qualifiers: Coronary Disease-Associated Artery/Lesion type: [place] artery [place] vs. transplanted heart: [place] heart Associated angina: without angina Qualified Code(s): I25.10 - Atherosclerotic heart disease of [place] coronary artery without angina pectoris Plan: Control the cholesterol, weight, blood pressure, diabetes (5) HTN (hypertension): Code(s): I10 - Essential (primary) hypertension Qualifiers: Hypertension type: essential hypertension Qualified Code(s): I10 - Essential (primary) hypertension Plan: Continue with blood pressure medication. Decrease salt intake and exercise patient takes diltiazem 180 mg once a day metoprolol 50 mg twice a day (6) Hypercholesterolemia: Comment: September 2021 Code(s): E78.00 - Pure hypercholesterolemia, unspecified Plan: Avoid fried foods, chicken skin, eggs, butter margarine, pastries and meat. Be it pork or beef they have a lot of cholesterol LDL goal of less than 70 patient is on atorvastatin 20 mg once a day (7) COPD (chronic obstructive pulmonary disease): Code(s): J44.9 - Chronic obstructive pulmonary disease, unspecified Qualifiers: COPD type: emphysema Emphysema type: unspecified Qualified Code(s): J43.9 - Emphysema, unspecified Plan: Continue with inhaler as well as oxygen Orders: Orders Vitamin B12 and Folate Today E11.65 - Type 2 diabetes mellitus with hyperglycemia B Type Natriuretic Peptide Today E11.65 - Type 2 diabetes mellitus with hyperglycemia Comprehensive Met. Panel Today E11.65 - Type 2 diabetes mellitus with hyperglycemia Ferritin Today E11.65 - Type 2 diabetes mellitus with hyperglycemia Hemoglobin A1c Today E11.65 - Type 2 diabetes mellitus with hyperglycemia IRON PROFILE Today E11.65 - Type 2 diabetes mellitus with hyperglycemia Lipid Panel Today E11.65 - Type 2 diabetes mellitus with hyperglycemia, E78.00 - Pure hypercholesterolemia, unspecified Free T4 (Free Thyroxine) Today E11.65 - Type 2 diabetes mellitus with hyperglycemia Thyroid Stimulating Hormone Today E11.65 - Type 2 diabetes mellitus with hyperglycemia Creatinine Urine Today E11.65 - Type 2 diabetes mellitus with hyperglycemia Microalbumin, Random (w Creat) Today E11.65 - Type 2 diabetes mellitus with hyperglycemia Complete Blood Count Auto Diff Today E11.65 - Type 2 diabetes mellitus with hyperglycemia Reticulocyte Count Today E11.65 - Type 2 diabetes mellitus with hyperglycemia Coding Level of Care Code Est Pt Level 4 (60489) Diagnoses Type 2 diabetes mellitus with hyperglycemia E11.65 Atrial fibrillation I48.0 Atrial fibrillation type: paroxysmal Congestive heart failure I50.9 Coronary artery disease I25.10 Coronary Disease-Associated Artery/Lesion type: [place] artery [place] vs. transplanted heart: [place] heart Associated angina: without angina HTN (hypertension) I10 Hypertension type: essential hypertension Hypercholesterolemia E78.00 COPD (chronic obstructive pulmonary disease) J43.9 COPD type: emphysema Emphysema type: unspecified
== END 2023-01-01 12:30 | disposition home or self-care (01) ==
PROVIDERS: Visit Provider Internal Medicine
DX: E11.65 Type 2 diabetes mellitus with hyperglycemia (principal); I48.0 Paroxysmal atrial fibrillation; I11.0 Hypertensive heart disease with heart failure; I50.9 Heart failure, unspecified
CPT/HCPCS: 99214

== ENCOUNTER 2023-01-15 10:49 | Outpatient (REF) | payer MEDICARE, SELFPAY | END 2023-01-15 10:50 | disposition home or self-care (01) | LOC: HO.MAMMO 10:49 | PROVIDERS: PCP Internal Medicine; Visit Provider Internal Medicine | DX: Z12.31 Encounter for screening mammogram for malignant neoplasm of breast (principal) | CPT/HCPCS: 77063; 77067 ==

== ENCOUNTER → 2023-01-15 11:00 | Outpatient (BNV) | payer MEDICARE, SELFPAY | PROVIDERS: PCP Internal Medicine; Visit Provider Radiology Diagnostic Radiology | DX: Z12.31 Encounter for screening mammogram for malignant neoplasm of breast (principal) | CPT/HCPCS: 77063; 77067 ==

== ENCOUNTER 2023-01-27 11:47 | Emergency (ER) | payer MEDICARE, SELFPAY ==
--- NOTE | ~2023-01-27 | CT_ITS ---
EXAMINATION: CT ABDOMEN AND PELVIS WITH CONTRAST CLINICAL INFORMATION: Lower abdominal pain, vaginal bleeding. COMPARISON: None available. TECHNIQUE: Multidetector volumetric images were obtained from the superior aspect of the liver through the pubic symphysis following administration 85 mL of Omnipaque 350 intravenous contrast. Sagittal and coronal reformatted images were obtained on the technologist's workstation. Oral contrast: No This CT examination was performed using dose optimization techniques as appropriate, variously including the following: *Automated exposure control *Adjustment of mA and/or kV according to patient size (this includes techniques or standardized protocols for targeted exams where dose is matched to indication/reason for exam; i.e. extremities or head) *Use of iterative reconstruction technique DLP: 603 mGy-cm FINDINGS: LUNG BASES: There is small right pleural effusion. The lung bases are clear. The heart size enlarged. There is a small hiatal hernia. LIVER, GALLBLADDER, AND BILIARY TREE: The liver is normal in size, shape, and attenuation. No focal hepatic lesion or biliary ductal dilatation is present. The gallbladder is unremarkable with no evidence of radiopaque gallstones, gallbladder wall thickening, or obvious pericholecystic inflammatory changes. PANCREAS: Unremarkable. SPLEEN: Unremarkable. ADRENAL GLANDS: Unremarkable. KIDNEYS AND URETERS: There is bilateral mild segmental cortical thinning likely scar. There is a complex 1.9 cm lesion midpole right kidney measuring 30 Hounsfield units likely complex cyst. There are no radiopaque renal calculi or hydronephrosis. BLADDER: Unremarkable. GASTROINTESTINAL TRACT: There is scattered stool, diverticuli and gas seen throughout the colon without distention. The small bowel loops are normal caliber.. Appendix is not visualized. ABDOMINAL WALL: No significant hernia is appreciated. LYMPH NODES: Normal. VASCULAR: There is atherosclerotic calcification of abdominal aorta without aneurysmal dilatation. PELVIC VISCERA: The uterus is anteverted and appears unremarkable. No adnexal mass or free fluid seen. OSSEOUS STRUCTURES: Mild degenerative disc changes L4-L5, L5-S1, T12-L1 and T11-T12 disc levels. Grade 1 anterolisthesis L5 over S1 is noted. No lytic or sclerotic process seen. CT/CT abdomen pelvis w IV con IMPRESSION: Diffuse colonic diverticulosis without diverticulitis. Mild constipation. Bilateral renal cortical scarring. Complex lesion midpole right kidney. Correlate with ultrasound of the kidneys. Fleischner guidelines were followed.
--- NOTE | ~2023-01-27 | US_ITS ---
EXAMINATION: US PELVIS CLINICAL INFORMATION: Vaginal bleeding in a postmenopausal patient COMPARISON: None available. TECHNIQUE: Limited transabdominal sonographic imaging of the pelvis is performed along with Doppler. Transvaginal imaging is performed due to inadequate visualization transabdominally. FINDINGS: Uterus: The uterus is anteverted and measures 7.6 x 3.4 x 4.6 cm. No fibroids. Endometrium is heterogeneous and thickened to 2.3 cm. Nabothian cysts seen. Adnexa: Bilateral ovaries not identified. No adnexal masses or free fluid. US/US pelvic and transvaginal IMPRESSION: Markedly abnormally thickened and heterogeneous endometrium. Consider gynecologic consultation with tissue sampling.
[2023-01-27 11:56] VITALS: BP 132/92; PULSE 86; RESP 20; TEMP 36.7; O2SAT 85; BMI 33.0
--- NOTE | 2023-01-27 11:56 | ED_ITS ---
HPI - General Adult General Chief complaint: Vaginal Bleeding Stated complaint: Hemorrhaging Time Seen by Provider: 01/27/23 12:19 Source: patient and family (Daughter) Mode of arrival: ambulatory History of Present Illness HPI narrative: 87-year-old female who is currently on chronic anticoagulation for atrial fibrillation and began having vaginal bleeding since yesterday with passage of clots in complaining of lower abdominal discomfort and pressure. Patient denies any recent changes in dosage, frequency. Related Data Previous Rx's Medication Instructions Recorded diltiazem HCl 180 mg 180 mg PO DAILY #90 caps 05/07/22 capsule,extended release 24 hr apixaban 5 mg tablet (Eliquis) 5 mg PO BID 90 days #180 tabs 06/12/22 atorvastatin 20 mg tablet 20 mg PO DAILY #90 tabs 06/12/22 isosorbide mononitrate 30 mg 30 mg PO DAILY 90 days #90 tabs 09/01/22 tablet,extended release 24 hr Trelegy Ellipta 100 mcg-62.5 1 ea PO DAILY #60 ea 10/07/22 mcg-25 mcg powder for inhalation (bklzpggmxfe-blqufhcra-qcdkeawf) metoprolol tartrate 50 mg tablet 50 mg PO BID #180 tabs 10/07/22 furosemide 40 mg tablet 40 mg PO DAILY 90 days #90 tabs 10/13/22 fluticasone propionate 50 1 spray intranasal DAILY #3 ea 10/14/22 mcg/actuation nasal spray,suspension albuterol sulfate 90 mcg/actuation 2 puff inhalation Q6H PRN for 12/19/22 aerosol inhaler wheezing #8.5 ea potassium chloride 20 mEq 20 meq PO Q2D #45 tabs 01/05/23 tablet,extended release(part/cryst) Allergies Allergy/AdvReac Type Severity Reaction Status Date / Time ADONIS Inhibitors Allergy Severe ANGIOEDEMA Verified 01/01/23 11:21 [Adonis Inhibitors] Sulfa (Sulfonamide Allergy Intermediate CHILLS Verified 01/01/23 11:21 Antibiotics) [Sulfa (Sulfonamides)] Review of Systems Review of Systems: Pertinent positives and negatives as stated in HPI [facility] Past Medical History Source: nursing notes reviewed Medical History (Updated 01/27/23 @ 16:31 by Jessenia Posada MD) Age-related osteoporosis without current pathological fracture Anemia Atrial fibrillation Breast cancer Congestive heart failure COPD (chronic obstructive pulmonary disease) Coronary artery disease Degenerative disc disease Diverticular disease History of right breast cancer HTN (hypertension) Hypercholesterolemia Mesenteric ischemia Obesity (BMI 30-39.9) Peripheral vascular disease Small cell lung cancer, right lower lobe TIA (transient ischemic attack) Surgical History H/O resection of small bowel History of lumpectomy of right breast Family History Family History (Updated 09/23/22 @ 10:[address] [facility]) Father Heart disease Mother Heart disease Brother Multiple myeloma Brother Lung cancer Social History Social History Household Members: None Housing: Apartment Are you a primary rn progressive care to a significant other at home: No Do you presently have visiting nurse or other home services: No Alcohol intake: never Patient Tobacco Use Status: Former Tobacco user Tobacco use type: Cigarette e-Cigarette/Vaping Use: Never Used Second Hand Smoke Exposure: No Advance Directives: No Advance Directives Information Provided: No service: No Current occupational status: retired Current occupational exposures/hazards: No Cognitive needs: No Hearing needs: Yes Vision needs: Yes Physical Exam ED Vital Signs: Vital Signs - 24 hr 01/27/23 11:56 01/27/23 12:38 01/27/23 14:56 Temperature 98.1 F Pulse Rate 86 77 64 Respiratory Rate 20 18 20 Blood Pressure 132/92 H 173/54 H 150/63 H Pulse Oximetry 85 L 98 95 Oxygen Delivery Method Nasal Cannula Nasal Cannula Nasal Cannula Oxygen Flow Rate 3 2 BMI result Body Mass Index 33.0 VITAL SIGNS: Reviewed. GENERAL: Well developed, well nourished, in no acute distress. HEAD: Normocephalic/atraumatic EYES: PERRLA, EOMI EARS: Ext canals without abnormality NOSE: Nares patent bilateral OROPHARYNX: no oral lesions noted, posterior pharynx clear NECK: Supple, no adenopathy LUNGS: Normal breath sounds. No adventitious sounds or accessory muscle use. SpO2<98> on home oxygen nasal cannula at 3 L CARDIOVASCULAR: Regular rate and rhythm without noted murmurs, no JVD or lower extremity edema. ABDOMEN: Soft, discomfort on lower abdominal palpation, non-distended with bowel sounds. MALATHI: There is obvious external dried blood noted that is likely coming from the vaginal area, on rectal exam there was firm brown stool, there were nondistended external hemorrhoids also noted MUSCULOSKELETAL: No tenderness, deformities, or effusions noted on gross inspection. EXTREMITIES: No cyanosis, clubbing or edema. SKIN: Inspection of the skin reveals no rashes NEUROLOGIC: Alert and oriented x 3. Strength and sensation to light touch were grossly intact x 4. Pelvic exam: There is dark blood noted in the posterior fornix, unable to identify the cervix. Course Course Course Narrative: This is a rapid medical exam: Additional HPI, ROS, PE not included below will be deferred to primary provider. Patient is an 87-year-old female with history of T2DM, CHF, afib on Eliquis, anemia, and COPD presenting to the emergency dep artment with complaint of vaginal bleeding since overnight/this morning. States that she wears a pad to bed and when she woke this morning she noted the pad was black/saturated with blood. She then sat on the toilet, states she did not have the urge to urinate but passed a golf ball sized blood clot. Reports bilateral lower abdominal pressure. Denies prior similar episodes. Denies chest pain, shortness of breath, dizziness, or lightheadedness. Denies any recent dark, tarry stool or blood in stool. Patient's O2 at 83% in triage, patient states that her oxygen levels drop when she is talking. electrical power engineer notified and patient brought directly into a room in the main ED. Plan: labs, EKG, UA Medications Administered Discontinued Medications Generic Name Dose Route Start Last Admin Trade Name Freq PRN Reason Stop Dose Admin Iohexol 85 ml 01/27/23 15:26 01/27/23 15:27 Iohexol 350 Mg/Ml 100 Ml Infus..Btl IV 01/27/23 15:27 85 ml ONCE ONE Administration Medical Decision Making Medical Decision Making MDM Narrative: 87-year-old female with history and clinical presentation, DDX: Abnormal uterine bleeding, I do not suspect a GI bleed although guaiac is positive suspect that this is contamination due to gravity from vaginal bleeding. Patient is otherwise hemodynamically stable present. On rectal exam firm, brown stool, guaiac was noted to be positive but I suspect that this is just cross contamination from vaginal bleeding. Pelvic exam demonstrates bleeding within the posterior vaginal fornix, unable to visualize the cervix. No bright red blood noted. I reviewed all investigations and hematologic indices are negative for leukocytosis or left shift, no thrombocytopenia and initially a chronically stable normocytic anemia which 3 hours later demonstrated an approximate 2 g drop reflecting patient's ongoing vaginal bleeding. Coagulation studies are elevated with a PT of 25.2 and INR of 2.1. VBG demonstrates pCO2 of 60 without acidosis. Chemistry indices without L external as her liver enzyme abnormalities, there is no BRODERICK. Ultrasound definitely shows heterogeneous thickened endometrium and otherwise my interpretation is in agreement with radiology's impression. CT scan without any further characterization and otherwise my interpretation is in agreement with radiology's impression. EKG consistent with patient's history of atrial fibrillation, rate controlled. 1549: I spoke with [facility] will contact gynecology. 1606: I discussed case with gynecology consult who recommends Provera 10 mg b.i.d. orally, and feels that patient should be admitted to the medicine floor due to multiple medical comorbidities. 1619: I discussed the case with medicine who accepts transfer to the [facility] floor and agrees with administering 10 mg of Provera, I will only give this dose once as patient does have significant past medical history of right breast carcinoma without active disease at this time. Patient will also be receiving 1 unit PRBCs which was communicated with the inpatient hospitalist. Patient has been informed of all results, plans and intention of transfer. Differential Diagnosis Differential Diagnoses: The differential diagnosis associated with the presentation includes Please see the discussion above Admission/Observation Consideration of admission/observation: Escalation of care including admission/observation considered Please see the discussion above Lab Data MDM Lab Attestation statement: I reviewed the patient's lab results. Please see the discussion above 01/27/23 12:35 01/27/23 12:35 Labs: Lab Results 01/27/23 01/27/23 01/27/23 Range/Units 12:35 12:35 12:35 WBC 8.2 (4.8-10.8) X10*3/uL RBC 4.10 L (4.20-5.50) X10*6/uL Hgb 11.1 L (12.0-16.0) g/dl Hct 37.8 (37.0-47.0) % MCV 92.2 (80.0-98.0) fL MCH 27.1 (27.0-33.0) pg MCHC 29.4 L (31.0-35.0) g/dl RDW 14.6 (11.0-16.0) % Plt Count 203 (160-400) X10*3/uL MPV 10.9 (9.4-12.3) fL Immature Gran % (Auto) 0.2 (0.0-0.4) % Neut % (Auto) 73.0 (45-73) % Lymph % (Auto) 13.3 L (20-40) % Fallon % (Auto) 12.0 H (2-11) % Eos % (Auto) 1.0 (0-4) % Baso % (Auto) 0.5 (0-2) % Lymph # (Auto) 1.1 L (1.2-4.9) X10*3/uL Fallon # (Auto) 1.0 (0.1-1.2) X10*3/uL Eos # (Auto) 0.1 (0.0-0.4) X10*3/uL Baso # (Auto) 0.0 (0.0-0.2) X10*3/uL Abs Immat Gran (auto) 0.02 (0.00-0.03) X10*3/uL Absolute Neuts (auto) 6.0 (2.0-8.3) x10*3/uL Absolute Nucleated RBC 0.000 (0.0-0.012) X10*3/uL Nucleated RBC % (auto) 0.0 (0.0-0.2) /100WBC PT 25.2 H (11.1-13.3) SEC INR 2.1 H (0.9-1.1) VBG pH (7.32-7.43) VBG pCO2 mmHg VBG pO2 mmHg VBG HCO3 (22-26) mmol/L VBG O2 Saturation % VBG Base Excess mmol/L Sodium 143 (135-145) mmol/L Potassium 4.2 (3.3-5.1) mmol/L Chloride 102 (96-108) mmol/L Carbon Dioxide 34 H (22-29) mmol/L Anion Gap 11 L (12-20) BUN 20 H (9-16) mg/dL Creatinine 0.88 (0.5-1.4) mg/dL Estim Creat Clear Calc 41.1 Estimated GFR > 60 Random Glucose 118 H (60-115) mg/dL Calcium 9.4 D (8.4-10.2) mg/dL Total Bilirubin 0.7 (0.0-1.0) mg/dL AST 16 (5-31) U/L ALT 7 (0-31) U/L Alkaline Phosphatase 72 (39-117) U/L Total Protein 7.5 (6.5-8.0) g/dL Albumin 3.7 (3.5-5.0) g/dL Stool Occult Blood (NEGATIVE) Blood Type Antibody Screen Crossmatch 01/27/23 01/27/23 01/27/23 Range/Units 12:35 12:35 12:39 WBC (4.8-10.8) X10*3/uL RBC (4.20-5.50) X10*6/uL Hgb (12.0-16.0) g/dl Hct (37.0-47.0) % MCV (80.0-98.0) fL MCH (27.0-33.0) pg MCHC (31.0-35.0) g/dl RDW (11.0-16.0) % Plt Count (160-400) X10*3/uL MPV (9.4-12.3) fL Immature Gran % (Auto) (0.0-0.4) % Neut % (Auto) (45-73) % Lymph % (Auto) (20-40) % Fallon % (Auto) (2-11) % Eos % (Auto) (0-4) % Baso % (Auto) (0-2) % Lymph # (Auto) (1.2-4.9) X10*3/uL Fallon # (Auto) (0.1-1.2) X10*3/uL Eos # (Auto) (0.0-0.4) X10*3/uL Baso # (Auto) (0.0-0.2) X10*3/uL Abs Immat Gran (auto) (0.00-0.03) X10*3/uL Absolute Neuts (auto) (2.0-8.3) x10*3/uL Absolute Nucleated RBC (0.0-0.012) X10*3/uL Nucleated RBC % (auto) (0.0-0.2) /100WBC PT (11.1-13.3) SEC INR (0.9-1.1) VBG pH 7.38 (7.32-7.43) VBG pCO2 60 mmHg VBG pO2 40 mmHg VBG HCO3 36 H (22-26) mmol/L VBG O2 Saturation 62.0 % VBG Base Excess 9.0 mmol/L Sodium (135-145) mmol/L Potassium (3.3-5.1) mmol/L Chloride (96-108) mmol/L Carbon Dioxide (22-29) mmol/L Anion Gap (12-20) BUN (9-16) mg/dL Creatinine (0.5-1.4) mg/dL Estim Creat Clear Calc Estimated GFR Random Glucose (60-115) mg/dL Calcium (8.4-10.2) mg/dL Total Bilirubin (0.0-1.0) mg/dL AST (5-31) U/L ALT (0-31) U/L Alkaline Phosphatase (39-117) U/L Total Protein (6.5-8.0) g/dL Albumin (3.5-5.0) g/dL Stool Occult Blood POSITIVE (NEGATIVE) Blood Type A Positive Antibody Screen NEGATIVE Crossmatch See Detail 01/27/23 Range/Units 15:04 WBC (4.8-10.8) X10*3/uL RBC (4.20-5.50) X10*6/uL Hgb 9.4 L (12.0-16.0) g/dl Hct 31.8 L (37.0-47.0) % MCV (80.0-98.0) fL MCH (27.0-33.0) pg MCHC (31.0-35.0) g/dl RDW (11.0-16.0) % Plt Count (160-400) X10*3/uL MPV (9.4-12.3) fL Immature Gran % (Auto) (0.0-0.4) % Neut % (Auto) (45-73) % Lymph % (Auto) (20-40) % Fallon % (Auto) (2-11) % Eos % (Auto) (0-4) % Baso % (Auto) (0-2) % Lymph # (Auto) (1.2-4.9) X10*3/uL Fallon # (Auto) (0.1-1.2) X10*3/uL Eos # (Auto) (0.0-0.4) X10*3/uL Baso # (Auto) (0.0-0.2) X10*3/uL Abs Immat Gran (auto) (0.00-0.03) X10*3/uL Absolute Neuts (auto) (2.0-8.3) x10*3/uL Absolute Nucleated RBC (0.0-0.012) X10*3/uL Nucleated RBC % (auto) (0.0-0.2) /100WBC PT (11.1-13.3) SEC INR (0.9-1.1) VBG pH (7.32-7.43) VBG pCO2 mmHg VBG pO2 mmHg VBG HCO3 (22-26) mmol/L VBG O2 Saturation % VBG Base Excess mmol/L Sodium (135-145) mmol/L Potassium (3.3-5.1) mmol/L Chloride (96-108) mmol/L Carbon Dioxide (22-29) mmol/L Anion Gap (12-20) BUN (9-16) mg/dL Creatinine (0.5-1.4) mg/dL Estim Creat Clear Calc Estimated GFR Random Glucose (60-115) mg/dL Calcium (8.4-10.2) mg/dL Total Bilirubin (0.0-1.0) mg/dL AST (5-31) U/L ALT (0-31) U/L Alkaline Phosphatase (39-117) U/L Total Protein (6.5-8.0) g/dL Albumin (3.5-5.0) g/dL Stool Occult Blood (NEGATIVE) Blood Type Antibody Screen Crossmatch Independent Interpretation I performed an independent interpretation of an: EKG Interpretation: Atrial fibrillation, HR-81, no STEMI, your S/QTC are within normal limits. Radiology Impression Radiologist Impression: Please see the discussion above External Record Review External record reviewed: Outpatient record, Prior outpatient labs and Prior outpatient radiology Chronic Conditions Patient?s care impacted by: Diabetes, Hypertension and Other COPD Critical Care Time Critical Care Time Critical Care Time: Yes Total Critical Care Time: 45 Attestation: I personally attest to this time spent taking care of the patient. Discharge Plan Discharge Clinical Impression: Abnormal uterine bleeding (AUB), Hemorrhage, postmenopausal, Thickened endometrium, ABLA (acute blood loss anemia) Patient Disposition: er [facility] Transfer Details: Need for higher level of care, specifically possible intervention by gynecology Prescriptions: No Action diltiazem HCl 180 mg capsule,extended release 24hr 180 mg PO DAILY Qty: 90 2RF isosorbide mononitrate 30 mg tablet extended release 24 hr 30 mg PO DAILY 90 Days Qty: 90 3RF metoprolol tartrate 50 mg tablet 50 mg PO BID Qty: 180 3RF Trelegy Ellipta 100-62.5-25 mcg blister with device 1 ea PO DAILY Qty: 60 11RF furosemide 40 mg tablet 40 mg PO DAILY 90 Days Qty: 90 3RF fluticasone propionate 50 mcg/actuation spray,suspension 1 spray intranasal DAILY Qty: 3 3RF albuterol sulfate 90 mcg/actuation HFA aerosol inhaler 2 puff inhalation Q6H PRN (Reason: for wheezing) Qty: 8.5 0RF potassium chloride 20 mEq tablet,ER particles/crystals 20 meq PO Q2D Qty: 45 3RF atorvastatin 20 mg tablet 20 mg PO DAILY Qty: 90 3RF Eliquis 5 mg tablet 5 mg PO BID 90 Days Qty: 180 3RF
--- NOTE | 2023-01-27 12:02 | ECG_ITS ---
Test Reason : CHEST PRESSURE Blood Pressure : / mmHG Vent. Rate : 081 BPM Atrial Rate : 000 BPM P-R Int : 000 ms QRS Dur : 076 ms QT Int : 380 ms P-R-T Axes : 000 089 021 degrees QTc Int : 441 ms Atrial fibrillation with premature ventricular or aberrantly conducted complexes Abnormal ECG When compared with ECG of 03-MAY-2018 18:29, Vent. rate has decreased Referred By: Carmel Knott Electronically Signed By:MANOLO MALLORY
[2023-01-27 12:38] VITALS: BP 173/54; PULSE 77; RESP 18; O2SAT 98
--- NOTE | 2023-01-27 12:39 | PC.NURSE ---
pt wears 3L oxygen at home, states that her oxygen always drops when she walks. resting in room with no apparent distress at 99% 3L. IV established, labs drawn and sent. provider obtained occult stool.
[2023-01-27 12:41] LABS: MANUAL DIFF FLAG NO
[2023-01-27 12:44] LABS: VBG HCO3 36 mmol/L (22-26); VBG pCO2 60 mmHg; VBG pH 7.38 (7.32-7.43); VBG pO2 40 mmHg
[2023-01-27 12:44] LABS: Basophils Percent Auto 0.5 % (0-2); Eosinophils Absolute Auto 0.1 X10*3/uL (0.0-0.4); Hematocrit 37.8 % (37.0-47.0); Hemoglobin 11.1 g/dl (12.0-16.0); Imm Gran Abs Auto 0.02 X10*3/uL (0.00-0.03); Imm Gran Pct Auto 0.2 % (0.0-0.4); Lymphocytes Absolute Auto 1.1 X10*3/uL (1.2-4.9); Lymphocytes Percent Auto 13.3 % (20-40); Mean Corpuscular HGB Conc 29.4 g/dl (31.0-35.0); Mean Corpuscular Hemoglobin 27.1 pg (27.0-33.0); Mean Corpuscular Volume 92.2 fL (80.0-98.0); Mean Platelet Volume 10.9 fL (9.4-12.3); OBS Int Ctl Valid YES; OBS1 POSITIVE (NEGATIVE); Platelet Count 203 X10*3/uL (160-400); Red Cell Distribution Width 14.6 % (11.0-16.0); White Blood Count 8.2 X10*3/uL (4.8-10.8)
[2023-01-27 12:47] LABS: Venous Blood Gas Refer to POC result
[2023-01-27 12:48] LABS: INTERNATIONAL NORM RATIO 2.1 (0.9-1.1); Prothrombin Time 25.2 SEC (11.1-13.3)
[2023-01-27 12:57] LABS: Alanine Aminotransferase 7 U/L (0-31); Albumin Level 3.7 g/dL (3.5-5.0); Alkaline Phosphatase 72 U/L (39-117); Anion Gap 11 (12-20); Aspartate Amino Transferase 16 U/L (5-31); Bilirubin Total 0.7 mg/dL (0.0-1.0); Blood Urea Nitrogen 20 mg/dL (9-16); Calcium 9.4 mg/dL (8.4-10.2); Carbon Dioxide 34 mmol/L (22-29); Chloride 102 mmol/L (96-108); Creatinine Clr Calc Pharmacy 41.1; Estimated Glomerular Filt Rate > 60; Glucose Random 118 mg/dL (60-115); Potassium 4.2 mmol/L (3.3-5.1); Sodium 143 mmol/L (135-145); Total Protein 7.5 g/dL (6.5-8.0)
--- NOTE | 2023-01-27 14:24 | PC.NURSE ---
provider at bedside for pelvic exam.
[2023-01-27 14:56] VITALS: BP 150/63; PULSE 64; RESP 20; O2SAT 95
[2023-01-27 15:11] LABS: Hematocrit 31.8 % (37.0-47.0); Hemoglobin 9.4 g/dl (12.0-16.0)
[2023-01-27] MEDS: iohexoL 350 MG/ML 100 ML INFUS..BTL 85 ML IV (15:27)
--- NOTE | 2023-01-27 16:14 | PC.NURSE ---
iv was found to be removed from pt's arm. attempted to get IV access unsuccessfully.
[2023-01-27 16:31] LABS: COVID-19 Test Negative (Negative); IDNOW Serial# 08D9AD1C
[2023-01-27 16:46] VITALS: BP 173/81; PULSE 77; RESP 16; TEMP 37
[2023-01-27] MEDS: medroxyPROGESTERone Acetate 5 MG TABLET 10 MG PO (17:00)
--- NOTE | 2023-01-27 17:01 | PC.NURSE ---
first unit of blood infusing at this time. vital signs remain stable. pt aware of transfer to [facility] at this time.
[2023-01-27 17:02] VITALS: BP 173/81; PULSE 86; RESP 18; TEMP 37; O2SAT 96
[2023-01-27 17:11] VITALS: BP 214/69; PULSE 76; RESP 18; TEMP 36.8
--- NOTE | 2023-01-27 17:13 | MHC.EDTECH ---
Patient care cleaning pedi area. Changed moris, put on underwear with a pad and gave warm blanket.
--- NOTE | 2023-01-27 17:31 | PC.NURSE ---
attempted to call report to [facility], no answer. [phone]. pt resting quietly in room, no apparent distress. daughter aware of bed assignment at [facility].
--- NOTE | 2023-01-27 18:12 | PC.NURSE ---
EMS here for transport to [facility]
--- NOTE | 2023-01-27 18:14 | PC.NURSE ---
pt was discharged prior to completion of blood transfusion.
== END 2023-01-27 18:15 | disposition short-term general hospital (02) ==
PROVIDERS: Registered Nurse Emergency; Emergency Provider Student in an Organized Health Care Education/Training Program; PCP Internal Medicine
DX: N93.9 Abnormal uterine and vaginal bleeding, unspecified (principal); R10.2 Pelvic and perineal pain; N95.9 Unspecified menopausal and perimenopausal disorder; I48.91 Unspecified atrial fibrillation; R07.89 Other chest pain; D62 Acute posthemorrhagic anemia; Z79.01 Long term (current) use of anticoagulants; Z20.822 Contact with and (suspected) exposure to COVID-19; Z20.828 Contact with and (suspected) exposure to other viral communicable diseases; Z87.891 Personal history of nicotine dependence; Z79.899 Other long term (current) drug therapy
CPT/HCPCS: 36415; 36430; 74177; 76830; 76856; 80053; 82272; 82803; 85014; 85018; 85025; 85610; 86850; 86900; 86901; 86923; 87635; 93005; 99285; P9016; Q9967

== ENCOUNTER 2023-02-03 11:35 | Outpatient (AMB) | payer MEDICARE, SELFPAY ==
[2023-02-03 11:39] VITALS: BP 124/76; PULSE 87; O2SAT 98; BMI 32.6
--- NOTE | 2023-02-03 11:39 | A.OFFPC_ITS ---
Vital Signs 02/03/23 11:39 Height 5 ft Weight 167 lb BMI 32.6 BP 124/76 Blood Pressure Location Lt brachial Position Sitting Pulse 87 Pulse Source Pulse Oximeter Pulse Oximetry (%) 98 Oxygen Delivery Method Nasal Cannula Intake Visit Reasons: [facility] 01/07/23 Hemorrhaging Allergies ADONIS Inhibitors [Adonis Inhibitors] Allergy (Severe, Verified 02/03/23 11:39) ANGIOEDEMA Sulfa (Sulfonamide Antibiotics) [Sulfa (Sulfonamides)] Allergy (Intermediate, Verified 02/03/23 11:39) CHILLS Medication List - Last Reconciled 02/03/23 by Radha Ramsey MD albuterol sulfate 90 mcg/actuation 2 puffs inhalation Q6H PRN apixaban (Eliquis) 5 mg PO BID 90 days atorvastatin 20 mg PO DAILY diltiazem HCl 180 mg PO DAILY fluticasone propionate 50 mcg/actuation 1 spray intranasal DAILY furosemide 40 mg PO DAILY 90 days isosorbide mononitrate ER 30 mg PO DAILY 90 days medroxyprogesterone (Provera) 10 mg PO DAILY metoprolol tartrate 50 mg PO BID potassium chloride ER 20 mEq PO Q2D Trelegy Ellipta 100-62.5-25 mcg (qktaatycdpy-oltueocrx-[id number]) 1 ea PO DAILY NS Tobacco use date assessed: 06/12/22 Fall risk assessment: No Falls in past year Last assessed Fall Risk: 02/03/23 Dental Screening Dental Screen Date: 02/03/23 Did you have a dental visit in the last 12 months?: No Did you have a dental problem in the last 6 months where you did not have access to dental care?: No Was dental information given to patient?: No HPI [facility] 01/07/23 Hemorrhaging HPI Details 88-year-old female with controlled diabetes mellitus atrial fibrillation congestive heart failure coronary artery disease hypertension hypercholesterolemia and COPD last seen in December 2022. Patient is here for follow-up. ER visit for vaginal bleeding 01/27/2023. Patient was sent to [facility]. PRBC tranfusion 1 u stopped Baby aspirin and last blood count HGB12/40.4 PAtient has been placed on ,medroxyprogesterone 10 mg . [facility] Medical History (Updated 02/03/23 @ 11:55 by Radha Ramsey MD) Age-related osteoporosis without current pathological fracture Anemia Atrial fibrillation Breast cancer Congestive heart failure COPD (chronic obstructive pulmonary disease) Coronary artery disease Degenerative disc disease Diverticular disease History of right breast cancer HTN (hypertension) Hypercholesterolemia Mesenteric ischemia Obesity (BMI 30-39.9) Peripheral vascular disease Small cell lung cancer, right lower lobe TIA (transient ischemic attack) Surgical History H/O resection of small bowel History of lumpectomy of right breast Family History (Updated 09/23/22 @ 10:04 by Renetta Sumner [facility]) Father Heart disease Mother Heart disease Brother Multiple myeloma Brother Lung cancer Social History Household Members: None Housing: Apartment Are you a primary hospice care sales consultant to a significant other at home: No Do you presently have visiting nurse or other home services: No Alcohol intake: never Patient Tobacco Use Status: Former Tobacco user Tobacco use type: Cigarette e-Cigarette/Vaping Use: Never Used Second Hand Smoke Exposure: No service: No Current occupational status: retired Current occupational exposures/hazards: No Cognitive needs: No Hearing needs: Yes Vision needs: Yes Questionnaire PHQ-9 Over the last 2 weeks, how often have you been bothered by any of the following problems? 1. Little interest or pleasure in doing things: not at all 2. Feeling down, depressed, or hopeless: not at all 3. Trouble falling or staying asleep, or sleeping too much: not at all 4. Feeling tired or having little energy: not at all 5. Poor appetite or overeating: not at all 6. Feeling bad about yourself - or that you are a failure or have let yourself or your family down: not at all 7. Trouble concentrating on things, such as reading the newspaper or watching television: not at all 8. Moving or speaking so slowly that other people could have noticed. Or the opposite - being so fidgety or restless that you have been moving around a lot more than usual: not at all 9. Thoughts that you would be better off or of hurting yourself in some way: not at all Total score: 0 Depression Screening Interpretation: Negative Source: Developed by Drs. Navin Almeida, Ene Fuentes, James Miller and colleagues, with an educational daniel from [employer] Thrive Questionnaire Date Thrive assessed: 06/12/22 AUDIT C Alcohol Use Questionnaire (AUDIT-C) 1. How often do you have a drink containing alcohol?: Monthly or less 2. How many drinks containing alcohol do you have on a typical day when you are drinking?: 1 or 2 3. How often do you have six or more drinks on one occasion?: Never Total Score: 1 DILLON-7 AMB Questionnaire DILLON-7 Date DILLON - 7 assessed: 06/12/22 Source: Developed by Drs. Navin Almeida, Ene Fuentes, James Miller and colleagues, with an educational daniel from [employer]. Physical exam (Primary Care) Vital Signs: Last Vital Signs Pulse 87 02/03/23 11:39 BP 124/76 02/03/23 11:39 Pulse Ox 98 02/03/23 11:39 Oxygen Delivery Method Nasal Cannula 02/03/23 11:39 BMI result Body Mass Index 32.6 Tobacco/Smoking Status: Tobacco use Status Tobacco use date assessed 06/12/22 02/03/23 11:48 Patient Tobacco Use Status Former Tobacco user 02/03/23 11:48 Tobacco use type Cigarette 02/03/23 11:48 e-Cigarette/Vaping Use Never Used 02/03/23 11:48 PHQ-9: PHQ-9 Score PHQ-9: Total score 0 02/03/23 11:48 Depression Screening Interpretation: Negative Thrive Assessment: Date of Thrive Assessment Date Thrive assessed 06/12/22 02/03/23 11:48 Const General: alert; No acute distress Eyes Conjunctivae: conjunctivae normal Resp Auscultation: clear to auscultation bilaterally Cardio Rate: regular rate Rhythm: regular rhythm GI Inspection: Yes normal to inspection Extrem General: Yes normal to inspection and No edema Assessment and Plan Assessment & Plan (1) Atrial fibrillation: Code(s): I48.91 - Unspecified atrial fibrillation Qualifiers: Atrial fibrillation type: paroxysmal Qualified Code(s): I48.0 - Paroxysmal atrial fibrillation Plan: Patient has been on anticoagulation with Eliquis. (2) Coronary artery disease: Comment: Echocardiogram May 2018 EF 60-65% moderate pulmonary hypertension, echo December 2018 EF 45-50% pulmonary hypertension Code(s): I25.10 - Atherosclerotic heart disease of [place] coronary artery without angina pectoris Qualifiers: Coronary Disease-Associated Artery/Lesion type: [place] artery [place] vs. transplanted heart: [place] heart Associated angina: without angina Qualified Code(s): I25.10 - Atherosclerotic heart disease of [place] coronary artery without angina pectoris Plan: Control the cholesterol, weight, blood pressure, diabetes (3) Type 2 diabetes mellitus with hyperglycemia: Code(s): E11.65 - Type 2 diabetes mellitus with hyperglycemia Plan: Decrease the amount of carbohydrate intake, pasta, bread, rice and potatoes are all sugar and that is aside from all the sweet stuff, remember that fruits are good but they are Sweet also. Patient is on diet control (4) Abnormal vaginal bleeding: Code(s): N93.9 - Abnormal uterine and vaginal bleeding, unspecified Plan: Patient has been sent to [facility]-1 u PRBC tranfusion done - sent home - presently on progresterone- will need to see the gynecology Orders: Referrals LEGAL ADMINISTRATIVE ASSISTANT Referral N93.9 - Abnormal uterine and vaginal bleeding, unspecified Coding Level of Care Code Est Pt Level 4 (55277) Diagnoses Atrial fibrillation I48.0 Atrial fibrillation type: paroxysmal Coronary artery disease I25.10 Coronary Disease-Associated Artery/Lesion type: [place] artery [place] vs. transplanted heart: [place] heart Associated angina: without angina Type 2 diabetes mellitus with hyperglycemia E11.65 Abnormal vaginal bleeding N93.9
== END 2023-02-03 12:11 | disposition home or self-care (01) ==
PROVIDERS: PCP Internal Medicine; Visit Provider Internal Medicine
DX: I48.0 Paroxysmal atrial fibrillation (principal); I25.10 Atherosclerotic heart disease of native coronary artery without angina pectoris; E11.65 Type 2 diabetes mellitus with hyperglycemia; N93.9 Abnormal uterine and vaginal bleeding, unspecified
CPT/HCPCS: 99214

== ENCOUNTER 2023-02-05 12:25 | Outpatient (REF) | payer MEDICARE, SELFPAY | END 2023-02-05 12:26 | disposition home or self-care (01) | LOC: HO.LNP 12:25 | PROVIDERS: PCP Internal Medicine; Visit Provider Obstetrics & Gynecology | DX: N95.0 Postmenopausal bleeding (principal); N93.9 Abnormal uterine and vaginal bleeding, unspecified | CPT/HCPCS: 58100; 88305; 99202 ==

== ENCOUNTER 2023-02-05 12:25 | Outpatient (AMB) | payer MEDICARE, SELFPAY ==
[2023-02-05 12:39] VITALS: BP 110/62; BMI 32.8
--- NOTE | 2023-02-05 12:39 | MHC.OFFVIS ---
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 The patient went to the ER with heavy vaginal bleeding her H&H dropped in the emergency room from 11.1-9.4, the patient received 1 unit of blood transfusion & was transferred to [facility] which was admitted on [facility] medicine floor for observation, the patient was started on Provera 10 mg p.o. q.d. by OBGYN consult Pelvic ultrasound showed the following: Uterus: The uterus is anteverted and measures 7.6 x 3.4 x 4.6 cm. No fibroids. Endometrium is heterogeneous and thickened to 2.3 cm. Nabothian cysts seen. Adnexa: Bilateral ovaries not identified. No adnexal masses or free fluid. [facility] Medical History (Updated 02/05/23 @ 12:44 by MARSHA Frank) History of cancer of upper lobe bronchus or lung Age-related osteoporosis without current pathological fracture History of right breast cancer Mesenteric ischemia Diverticular disease Atrial fibrillation Congestive heart failure Degenerative disc disease Coronary artery disease Obesity (BMI 30-39.9) Peripheral vascular disease Hypercholesterolemia TIA (transient ischemic attack) Anemia Breast cancer Small cell lung cancer, right lower lobe HTN (hypertension) COPD (chronic obstructive pulmonary disease) Surgical History History of lumpectomy of right breast H/O resection of small bowel Family History Father Heart disease Mother Heart disease Brother Multiple myeloma Brother Lung cancer Social History Household Members: None Housing: Apartment Are you a primary long term care administrator to a significant other at home: No Do you presently have visiting nurse or other home services: No Alcohol intake: never Patient Tobacco Use Status: Former Tobacco user Tobacco use type: Cigarette e-Cigarette/Vaping Use: Never Used Second Hand Smoke Exposure: No service: No Current occupational status: retired Current occupational exposures/hazards: No Cognitive needs: No Hearing needs: Yes Vision needs: Yes Female Reproductive History Menstrual Age of Menarche: 13 control method: none Total pregnancies: 4 Full term: 4 Number of Living Children: 4 Review of Systems Const All systems reviewed & are unremarkable except as noted in HPI and below Physical Exam Vital Signs: Last Vital Signs BP 110/62 02/05/23 12:39 BMI result Body Mass Index 32.8 General: Yes no CVA tenderness External Female Exam: normal external appearance and normal appearance of the urethra Speculum Exam - Vagina: normal appearance of the vagina, normal palpation, no lesions and no masses Speculum Exam - Cervix: normal appearance of the cervix, normal palpation, no lesions, no masses and nontender Bimanual exam- vagina & uterus: normal bimanual exam, normal palpation, uterine size normal, normal palpation, uterine shape normal, No Cervical tenderness present and non-tender Bimanual Exam- Adnexa, other: normal adnexae Back/Spine/Pelvis Back: no CVA tenderness Office Procedures Endometrial Biopsy Details: The patient was counseled regarding the indication and benefits of endometrial sampling to rule out endometrial pathology including not limited to endometrial hyperplasia or endometrial cancer and others; The alternatives (Either do nothing vs. hysteroscopy D&C) & the risks were discussed with the patient including but not limited: pain, uterine perforation, bleeding, infection, possible injury to bladder, bowel, ureter, possible need for blood transfusion with all its possible risks. The patient verbalized understanding all questions answered and signed consent. The patient was placed into the dorsal lithotomy position; a speculum was inserted in the vagina. Using aseptic technique for the procedure, the cervix was cleansed with Betadine. The anterior lip of the cervix was grasped with a single tooth tenaculum. The uterus was sounded to 7 cm with a 4 mm Pipelle was used. Tissues samples were obtained and placed in formalin, in a patient labeled container and sent to the pathology department. At the end of the procedure, there was minimal bleeding noted The patient tolerated the procedure well and was discharged in good condition with the following instructions: Nothing in the vagina until the bleeding stops. No sex until the bleeding stops, to call if any of the following occurs: fever (>100.4), flu-like symptoms, abdominal pain, heavy bleeding, four smelling vaginal discharge. The patient was instructed to schedule a Follow up appointment in 2 weeks to discuss pathology results of the biopsy and treatment options. This note was generated with a voice recognition program. Some errors may have been overlooked during the review of this note. Sometimes these errors may affect the content or meaning of a given sentence. [id number] Biopsy Assessment & Plan Assessment & Plan (1) Hemorrhage, postmenopausal: Code(s): N95.0 - Postmenopausal bleeding Plan: Discussed with the patient the pelvic ultrasound findings, the endometrial stripe thickenss measured by ultrasound was more than 4mm. The negative predictive value, positive predictive value, Sensitivity, specificity of using ultrasound measurement of endometrial stripe to detecting endometrial pathology including hyperplasia , polyp or cancer were discussed with the patient. Recommended to the patient that the next step is an endometrial sampling via hysteroscopy D&C possible polypectomy versus endometrial biopsy to r/o endometrial pathology including hyperplasia or cancer. All the pros and cons risks and benefits of each approach were discussed with the patient, endometrial biopsy being less invasive, office procedure with less sensitivity and inability diagnose a polyp and removal versus hysteroscopy done under anesthesia more invasive more sensitive to endometrial cancer and possibility of diagnosing and endometrial polyp with the possibility of polypectomy. All questions were answered pt verbalized understanding and decided to proceed with endometrial biopsy. Endometrial biopsy done, see procedure note. In addition, discussed with the patient that with her breast cancer is ER/[place] positive, Provera might increase the risk of recurrence and progression of her breast cancer. Instructed the patient to discontinue Provera for the time being unless her vaginal bleeding started again then recommended to the patient to restart Provera 10 mg p.o. q.d. Instructions given the patient to schedule follow-up EMB appointment in few days Orders: Orders Surgical Today N93.9 - Abnormal uterine and vaginal bleeding, unspecified AMB Endometrial Biopsy Today N95.0 - Postmenopausal bleeding Coding Level of Care Code New Pt Level 3 (31830) Diagnoses Hemorrhage, postmenopausal N95.0 CPT Codes Endometrial Biopsy - CPT: 01594-[id number] Biopsy ([id number])
== END 2023-02-05 13:14 | disposition home or self-care (01) ==
LOC: HO.HWS 12:25
PROVIDERS: PCP Internal Medicine; Visit Provider Obstetrics & Gynecology
DX: N95.0 Postmenopausal bleeding (principal)
CPT/HCPCS: 58100; 99203

== ENCOUNTER 2023-02-10 12:42 | Outpatient (AMB) | payer MEDICARE, SELFPAY ==
--- NOTE | 2023-02-10 12:48 | MHC.OFFVIS ---
Intake Vital Signs 02/10/23 12:50 Height 5 ft Weight 167 lb 8.821 oz BMI 32.7 BP 112/68 Intake Visit Reasons: EMB results Slate Worker Required: No Information Interpreted: non-clinical & clinical Accompanied by: Daughter Allergies ADONIS Inhibitors [Adonis Inhibitors] Allergy (Severe, Verified 02/10/23 12:51) ANGIOEDEMA Sulfa (Sulfonamide Antibiotics) [Sulfa (Sulfonamides)] Allergy (Intermediate, Verified 02/10/23 12:51) CHILLS Post menopausal: Yes HPI HPI Comments History of Present Illness Details Presenting for follow-up post endometrial biopsy with no complaints, no vaginal bleeding. The pathology showed the following: Abundant blood and few superficial strips of atrophic endometrium; negative for atypia, hyperplasia or malignancy PFS Medical History History of cancer of upper lobe bronchus or lung Age-related osteoporosis without current pathological fracture History of right breast cancer Mesenteric ischemia Diverticular disease Atrial fibrillation Congestive heart failure Degenerative disc disease Coronary artery disease Obesity (BMI 30-39.9) Peripheral vascular disease Hypercholesterolemia TIA (transient ischemic attack) Anemia Breast cancer Small cell lung cancer, right lower lobe HTN (hypertension) COPD (chronic obstructive pulmonary disease) Surgical History History of lumpectomy of right breast H/O resection of small bowel Family History Father Heart disease Mother Heart disease Brother Multiple myeloma Brother Lung cancer Social History Household Members: None Housing: Apartment Are you a primary intensive care nurse to a significant other at home: No Do you presently have visiting nurse or other home services: No Alcohol intake: never Patient Tobacco Use Status: Former Tobacco user Tobacco use type: Cigarette e-Cigarette/Vaping Use: Never Used Second Hand Smoke Exposure: No service: No Current occupational status: retired Current occupational exposures/hazards: No Cognitive needs: No Hearing needs: Yes Vision needs: Yes Female Reproductive History Menstrual Age of Menarche: 13 Review of Systems Const All systems reviewed & are unremarkable except as noted in HPI and below Reports as per HPI and Reports no additional complaints GI Reports no additional complaints Reports no additional complaints Assessment & Plan Assessment & Plan (1) Hemorrhage, postmenopausal: Code(s): N95.0 - Postmenopausal bleeding Plan: Discussed with the patient the results of the endometrial biopsy showing abundant blood with few strips of atrophic endometrium. Discussed with the patient the sensitivity, specificity, positive and negative predictive value, of endometrial biopsy in detecting endometrial pathology including but not limited to endometrial hyperplasia, cancer and other pathology; instructed the patient to call in case is vaginal bleeding bleeding recurs, the next step will be to proceed with a diagnostic hysteroscopy/D&C for further endometrial sampling evaluation to rule out endometrial pathology. All questions answered and the patient verbalized understanding and agreed with the plan. Coding Level of Care Code Est Pt Level 3 (65089) Diagnoses Hemorrhage, postmenopausal N95.0
[2023-02-10 12:50] VITALS: BP 112/68; BMI 32.7
== END 2023-02-10 13:01 | disposition home or self-care (01) ==
PROVIDERS: PCP Internal Medicine; Visit Provider Obstetrics & Gynecology
DX: N95.0 Postmenopausal bleeding (principal)
CPT/HCPCS: 99213

== ENCOUNTER → 2023-02-10 12:42 | Outpatient (BNVA) | payer MEDICARE, SELFPAY | PROVIDERS: PCP Internal Medicine; Visit Provider Obstetrics & Gynecology | DX: N95.0 Postmenopausal bleeding (principal); Z98.890 Other specified postprocedural states | CPT/HCPCS: 99212 ==

== ENCOUNTER 2023-02-27 12:10 | Outpatient (REF) | payer MEDICARE, SELFPAY ==
[2023-02-27 12:44] LABS: Hematocrit 41.3 % (37.0-47.0); Hemoglobin 12.4 g/dl (12.0-16.0); Mean Corpuscular Hemoglobin 27.5 pg (27.0-33.0); Mean Corpuscular Volume 91.6 fL (80.0-98.0); Mean Platelet Volume 11.6 fL (9.4-12.3); Platelet Count 217 X10*3/uL (160-400); Red Blood Count 4.51 X10*6/uL (4.20-5.50); Red Cell Distribution Width 15.2 % (11.0-16.0); White Blood Count 8.9 X10*3/uL (4.8-10.8)
== END 2023-02-27 12:11 | disposition home or self-care (01) ==
LOC: HO.LAB 12:10
PROVIDERS: PCP Internal Medicine; Visit Provider Obstetrics & Gynecology
DX: N93.9 Abnormal uterine and vaginal bleeding, unspecified (principal)
CPT/HCPCS: 36415; 85027

== ENCOUNTER 2023-03-23 09:00 | Outpatient (REF) | payer MEDICARE, SELFPAY ==
[2023-03-23 11:38] LABS: MANUAL DIFF FLAG NO
[2023-03-23 11:50] LABS: Basophils Absolute Auto 0.1 X10*3/uL (0.0-0.2); Basophils Percent Auto 0.6 % (0-2); Eosinophils Absolute Auto 0.1 X10*3/uL (0.0-0.4); Eosinophils Percent Auto 1.6 % (0-4); Hematocrit 42.1 % (37.0-47.0); Hemoglobin 12.7 g/dl (12.0-16.0); Imm Gran Abs Auto 0.04 X10*3/uL (0.00-0.03); Imm Gran Pct Auto 0.5 % (0.0-0.4); Immature Retic Fraction 10.4 % (3.0-15.9); Lymphocytes Absolute Auto 1.8 X10*3/uL (1.2-4.9); Lymphocytes Percent Auto 20.2 % (20-40); Mean Corpuscular HGB Conc 30.2 g/dl (31.0-35.0); Mean Corpuscular Hemoglobin 27.9 pg (27.0-33.0); Mean Corpuscular Volume 92.5 fL (80.0-98.0); Mean Platelet Volume 11.8 fL (9.4-12.3); Monocytes Percent Auto 11.7 % (2-11); Neutrophils Absolute Auto 5.7 x10*3/uL (2.0-8.3); Neutrophils Percent Auto 65.4 % (45-73); Platelet Count 221 X10*3/uL (160-400); Red Blood Count 4.55 X10*6/uL (4.20-5.50); Red Cell Distribution Width 15.5 % (11.0-16.0); Retic HGB Equivalent 32.6 pg (30.0-35.0); Reticulocytes Absolute 0.092 X10*6/uL (0.026-0.095); White Blood Count 8.7 X10*3/uL (4.8-10.8)
[2023-03-23 12:00] LABS: Estimated Average Glucose 137 mg/dL; Hemoglobin A1c % 6.4 % (<6.0)
[2023-03-23 12:13] LABS: Alanine Aminotransferase 9 U/L (0-31); Albumin Level 3.8 g/dL (3.5-5.0); Alkaline Phosphatase 76 U/L (39-117); Anion Gap 13 (12-20); Aspartate Amino Transferase 16 U/L (5-31); Bilirubin Total 0.8 mg/dL (0.0-1.0); Blood Urea Nitrogen 19 mg/dL (9-16); Calcium 9.7 mg/dL (8.4-10.2); Carbon Dioxide 30 mmol/L (22-29); Chloride 104 mmol/L (96-108); Cholesterol 148 mg/dL (<200); Estimated Glomerular Filt Rate 49; Glucose Random 110 mg/dL (60-115); HDL Cholesterol 40 mg/dL (>40); Iron 60 mcg/dL (30-160); LDL Cholesterol Calculated 93 mg/dL (<100); Percent Iron Saturation 18 % (15-50); Potassium 3.4 mmol/L (3.3-5.1); Sodium 144 mmol/L (135-145); Total Iron Binding Capacity 329 mcg/dL (228-428); Total Protein 7.8 g/dL (6.5-8.0); Triglycerides 79 mg/dL (<150); Unsaturated Iron Binding 269 ug/dL
[2023-03-23 12:19] LABS: B Type Natriuretic Peptide 408 pg/mL (<100)
[2023-03-23 12:22] LABS: Ferritin 62 ng/mL (10-250); Free T4 (Free Thyroxine) 0.98 ng/dL (0.71-1.85); Thyroid Stimulating Hormone 2.04 uIU/mL (0.32-4.0)
[2023-03-23 12:24] LABS: Folate 14.6 ng/mL (> or = 4.0); Vitamin B12 765 pg/mL (200-900)
== END 2023-03-23 09:01 | disposition home or self-care (01) ==
LOC: HO.HMGCLDS 09:00
PROVIDERS: PCP Internal Medicine; Visit Provider Internal Medicine
DX: E11.65 Type 2 diabetes mellitus with hyperglycemia (principal); E78.00 Pure hypercholesterolemia, unspecified
CPT/HCPCS: 36415; 80053; 80061; 82607; 82728; 82746; 83036; 83540; 83880; 84439; 84443; 85025; 85045

== ENCOUNTER 2023-04-09 10:37 | Outpatient (AMB) | payer MEDICARE, SELFPAY ==
[2023-04-09 10:42] VITALS: BP 148/88; PULSE 97; O2SAT 91; BMI 33.2
--- NOTE | 2023-04-09 10:42 | MHC.PC.OV ---
Vital Signs 04/09/23 10:42 Height 5 ft Weight 170 lb BMI 33.2 BP 148/88 H Blood Pressure Location Lt brachial Position Sitting Pulse 97 Pulse Source Pulse Oximeter Pulse Oximetry (%) 91 L Oxygen Delivery Method Nasal Cannula Intake Visit Reasons: 3mon f/u Allergies ADONIS Inhibitors [Adonis Inhibitors] Allergy (Severe, Verified 04/09/23 10:43) ANGIOEDEMA Sulfa (Sulfonamide Antibiotics) [Sulfa (Sulfonamides)] Allergy (Intermediate, Verified 04/09/23 10:43) CHILLS Tobacco use date assessed: 06/12/22 Fall risk assessment: 2 + Falls in past year Last assessed Fall Risk: 04/09/23 Dental Screening Dental Screen Date: 04/09/23 Did you have a dental visit in the last 12 months?: Yes Did you have a dental problem in the last 6 months where you did not have access to dental care?: No Was dental information given to patient?: Patient has dentist HPI 3mon f/u HPI Details 88-year-old obese female with atrial fibrillation coronary artery disease diabetes mellitus coming in for follow-up. Last seen in January 2023.. Patient had abdominal urine/vaginal bleeding and is being followed up by gynecology option of medroxyprogesterone/hysteroscopy and D&C patient opted for medroxyprogesterone trial. fall last month [facility] Medical History (Updated 04/09/23 @ 11:56 by Radha Ramsey MD) History of cancer of upper lobe bronchus or lung Age-related osteoporosis without current pathological fracture History of right breast cancer Mesenteric ischemia Diverticular disease Atrial fibrillation Congestive heart failure Degenerative disc disease Coronary artery disease Obesity (BMI 30-39.9) Peripheral vascular disease Hypercholesterolemia TIA (transient ischemic attack) Anemia Breast cancer Small cell lung cancer, right lower lobe HTN (hypertension) COPD (chronic obstructive pulmonary disease) Surgical History History of lumpectomy of right breast H/O resection of small bowel Family History Father Heart disease Mother Heart disease Brother Multiple myeloma Brother Lung cancer Social History Household Members: None Housing: Apartment Are you a primary clinical care coordinator to a significant other at home: No Do you presently have visiting nurse or other home services: No Alcohol intake: never Patient Tobacco Use Status: Former Tobacco user Tobacco use type: Cigarette e-Cigarette/Vaping Use: Never Used Second Hand Smoke Exposure: No service: No Current occupational status: retired Current occupational exposures/hazards: No Cognitive needs: No Hearing needs: Yes Vision needs: Yes Female Reproductive History Menstrual Age of Menarche: 13 Questionnaire PHQ-9 Over the last 2 weeks, how often have you been bothered by any of the following problems? 1. Little interest or pleasure in doing things: not at all 2. Feeling down, depressed, or hopeless: not at all 3. Trouble falling or staying asleep, or sleeping too much: not at all 4. Feeling tired or having little energy: not at all 5. Poor appetite or overeating: not at all 6. Feeling bad about yourself - or that you are a failure or have let yourself or your family down: not at all 7. Trouble concentrating on things, such as reading the newspaper or watching television: not at all 8. Moving or speaking so slowly that other people could have noticed. Or the opposite - being so fidgety or restless that you have been moving around a lot more than usual: not at all 9. Thoughts that you would be better off or of hurting yourself in some way: not at all Total score: 0 Depression Screening Interpretation: Negative Depression Screening Done: Yes Source: Developed by Drs. Navin Almeida, James Randhawa and colleagues, with an educational daniel from [employer]. Thrive Questionnaire Date Thrive assessed: 06/12/22 AUDIT C Alcohol Use Questionnaire (AUDIT-C) 1. How often do you have a drink containing alcohol?: Monthly or less 2. How many drinks containing alcohol do you have on a typical day when you are drinking?: 1 or 2 3. How often do you have six or more drinks on one occasion?: Never Total Score: 1 DILLON-7 AMB Questionnaire DILLON-7 Date DILLON - 7 assessed: 06/12/22 Source: Developed by Drs. Navin Almeida, James Randhawa and colleagues, with an educational daniel from [employer]. Physical exam (Primary Care) Vital Signs: Last Vital Signs Pulse 97 04/09/23 10:42 BP 148/88 H 04/09/23 10:42 Pulse Ox 91 L 04/09/23 10:42 Oxygen Delivery Method Nasal Cannula 04/09/23 10:42 BMI result Body Mass Index 33.2 Tobacco/Smoking Status: Tobacco use Status Tobacco use date assessed 06/12/22 04/09/23 10:42 Patient Tobacco Use Status Former Tobacco user 04/09/23 10:42 Tobacco use type Cigarette 04/09/23 10:42 e-Cigarette/Vaping Use Never Used 04/09/23 10:42 PHQ-9: PHQ-9 Score PHQ-9: Total score 0 04/09/23 11:29 Depression Screening Interpretation: Negative Thrive Assessment: Date of Thrive Assessment Date Thrive assessed 06/12/22 04/09/23 10:42 Const General: alert; No acute distress Eyes Conjunctivae: conjunctivae normal Resp Auscultation: clear to auscultation bilaterally Cardio Rate: regular rate Rhythm: regular rhythm GI Inspection: Yes normal to inspection Extrem General: Yes normal to inspection and No edema Assessment and Plan Assessment & Plan (1) Coronary artery disease: Comment: Echocardiogram May 2018 EF 60-65% moderate pulmonary hypertension, echo December 2018 EF 45-50% pulmonary hypertension Code(s): I25.10 - Atherosclerotic heart disease of [place] coronary artery without angina pectoris Qualifiers: Coronary Disease-Associated Artery/Lesion type: [place] artery [place] vs. transplanted heart: [place] heart Associated angina: without angina Qualified Code(s): I25.10 - Atherosclerotic heart disease of [place] coronary artery without angina pectoris Plan: Control the cholesterol, weight, blood pressure, diabetes continue with anticoagulation (2) Atrial fibrillation: Code(s): I48.91 - Unspecified atrial fibrillation Qualifiers: Atrial fibrillation type: paroxysmal Qualified Code(s): I48.0 - Paroxysmal atrial fibrillation Plan: Continue with anticoagulation with Eliquis (3) Type 2 diabetes mellitus with hyperglycemia: Code(s): E11.65 - Type 2 diabetes mellitus with hyperglycemia Plan: Decrease the amount of carbohydrate intake, pasta, bread, rice and potatoes are all sugar and that is aside from all the sweet stuff, remember that fruits are good but they are Sweet also. Hemoglobin A1c goal of less than 7.0. Patient is controlled presently on diet control (4) HTN (hypertension): Code(s): I10 - Essential (primary) hypertension Qualifiers: Hypertension type: essential hypertension Qualified Code(s): I10 - Essential (primary) hypertension Plan: Continue with blood pressure medication. Decrease salt intake and exercise patient taking diltiazem 180 mg once a day metoprolol 50 mg twice a day (5) COPD (chronic obstructive pulmonary disease): Code(s): J44.9 - Chronic obstructive pulmonary disease, unspecified Qualifiers: COPD type: emphysema Emphysema type: unspecified Qualified Code(s): J43.9 - Emphysema, unspecified Plan: Continue with inhaler and on Trelegy (6) Hypercholesterolemia: Comment: September 2021 Code(s): E78.00 - Pure hypercholesterolemia, unspecified Plan: Avoid fried foods, chicken skin, eggs, butter margarine, pastries and meat. Be it pork or beef they have a lot of cholesterol LDL goal of less than 70 on atorvastatin 20 mg once a day (7) Obesity (BMI 30-39.9): Code(s): E66.9 - Obesity, unspecified Plan: Diet and exercise (8) Congestive heart failure: Code(s): I50.9 - Heart failure, unspecified Plan: Continue with diuretic and we daily (9) Abnormal vaginal bleeding: Code(s): N93.9 - Abnormal uterine and vaginal bleeding, unspecified Plan: Patient follows up with OB gynecology and has been started on medroxyprogesterone (10) Knee pain, right: Code(s): M25.561 - Pain in right knee Orders: Orders XR knee RT 2V Today M25.561 - Pain in right knee Medications: Refilled furosemide 40 mg PO DAILY 90 days 90 tabs 3RF I50.9 - Heart failure, unspecified Coding Level of Care Code Est Pt Level 4 (71625) Diagnoses Coronary artery disease involving [place] coronary artery of [place] heart without angina pectoris I25.10 Coronary Disease-Associated Artery/Lesion type: [place] artery [place] vs. transplanted heart: [place] heart Associated angina: without angina Paroxysmal atrial fibrillation I48.0 Atrial fibrillation type: paroxysmal Type 2 diabetes mellitus with hyperglycemia E11.65 Essential hypertension I10 Hypertension type: essential hypertension Pulmonary emphysema, unspecified emphysema type J43.9 COPD type: emphysema Emphysema type: unspecified Hypercholesterolemia E78.00 Obesity (BMI 30-39.9) E66.9 Congestive heart failure I50.9 Abnormal vaginal bleeding N93.9 Knee pain, right M25.561
== END 2023-04-09 12:06 | disposition home or self-care (01) ==
PROVIDERS: PCP Internal Medicine; Visit Provider Internal Medicine
DX: I48.0 Paroxysmal atrial fibrillation (principal); E11.65 Type 2 diabetes mellitus with hyperglycemia; J43.9 Emphysema, unspecified; I50.9 Heart failure, unspecified; I25.10 Atherosclerotic heart disease of native coronary artery without angina pectoris; I10 Essential (primary) hypertension; E78.00 Pure hypercholesterolemia, unspecified; E66.9 Obesity, unspecified; N93.9 Abnormal uterine and vaginal bleeding, unspecified; M25.561 Pain in right knee
CPT/HCPCS: 99214

== ENCOUNTER 2023-04-17 09:27 | Outpatient (REF) | payer MEDICARE, SELFPAY ==
--- NOTE | ~2023-04-17 | XR_ITS ---
EXAMINATION: XR KNEE, RIGHT CLINICAL INFORMATION: Pain. COMPARISON: None available. TECHNIQUE: AP, lateral, and both oblique views of the right knee. FINDINGS: Bony alignment and mineralization are normal. The lateral, medial and patellofemoral joint space compartments are well-maintained. There is minimal tricompartment peripheral osteophyte formation. No fracture, dislocation or significant joint effusion is seen. An enthesophyte arises from the upper pole of the patella at quadriceps tendon insertion. There are atherosclerotic calcifications. XR/XR knee RT 2V IMPRESSION: 1. No right knee fracture, dislocation or joint effusion is seen. 2. There is minimal tricompartment osteoarthritic change of the right knee.
== END 2023-04-17 09:28 | disposition home or self-care (01) ==
LOC: HO.XRAY 09:27
PROVIDERS: PCP Internal Medicine; Visit Provider Internal Medicine
DX: M25.561 Pain in right knee (principal)
CPT/HCPCS: 73560

== ENCOUNTER 2023-06-17 10:45 | Outpatient (AMB) | payer MEDICARE, SELFPAY ==
[2023-06-17 10:55] VITALS: BP 144/78; PULSE 90; O2SAT 95; BMI 32.2
--- NOTE | 2023-06-17 10:55 | A.OFFVIS_ITS ---
Intake Vital Signs 06/17/23 10:55 Height 5 ft Weight 165 lb BMI 32.2 BP 144/78 H Blood Pressure Location Lt brachial Position Sitting Pulse 90 Pulse Source Pulse Oximeter Pulse Oximetry (%) 95 Oxygen Delivery Method Nasal Cannula Oxygen Flow Rate 3 Intake Visit Reasons: copd Allergies ADONIS Inhibitors [Adonis Inhibitors] Allergy (Severe, Verified 06/17/23 10:56) ANGIOEDEMA Sulfa (Sulfonamide Antibiotics) [Sulfa (Sulfonamides)] Allergy (Intermediate, Verified 06/17/23 10:56) CHILLS HPI HPI Comments History of Present Illness Details The patient is an 88-year-old woman known history of COPD in addition to congestive heart failure and history lung cancer back in 2001 status post lobectomy. She developed worsening hypoxia due to her COPD and also a component of restrictive lung disease requiring oxygen. She has been using the oxygen with partial benefit. She still having issues with dyspnea with exertion, moderate in severity. She would like to get a portable oxygen concentrator but it is not clear if she qualifies for one. She has tried to acquire a portable oxygen concentrator to improve her portability since she cannot carry the tanks, however, she has not been able to do so. She has been working through [employer] her current [employer] company. It does not appear that she has a conserving valve under tank at this time. It is not clear if she has had a conserving device trial in the past. During the patient is here for pulmonary follow-up visit. Overall she is doing well. She is responding well to the oxygen she uses it with activity. She does take it off when she is at home resting walking short distances. She is wondering if she should sleep with it. We will do an overnight oximetry at this time. She is having hard time pain for the trelegy inhaler. She does have some Symbicort home and she felt that that was working just fine. I did supply her with spacer to see if we can get a better affect from it. We did review her imaging studies she has not had a chest x-ray. Therefore, will have her get an x-ray prior to the next visit. 03/27/2020 the patient is here for pulmonary follow-up visit. Overall she is doing better. The Symbicort inhaler with spacer seems to be more effective for her. She has not require her short-acting beta agonist. She is using her oxygen with activity. She was having some difficulties tolerating it at nighttime so she stopped using it. She has not noticed any headaches or any drowsiness or any difficulties with the lack of oxygen. She did have a chest x- ray demonstrating no significant changes. 11/20/2020 the patient is here for pulmonary follow-up visit. The patient continues to complaint of dyspnea on exertion. Moderate in severity. Mainly worsen with the heat and humidity. She had been on nebulized therapy but has not been using it regularly and she does feel that is effective for her to she does use the oxygen which is been helpful. The patient had been on Trelegy inhaler in the past with better response. But, it was too expensive. She did change insurance in a.m. hopeful that she can get it at a more reasonable for eyes at this time. I will send him to the pharmacy if his to extensive thing w ill go ahead and find a more reasonable option. In addition to that the patient has noticed increased lower extremity edema and was told to take additional diuretic therapy. 10/01/2021 the patient is here for a pulmonary follow-up visit. Overall she is doing about the same. Continues to have dyspnea on exertion. The oxygen has been affecting beneficial for her. She also continues with respiratory therapy. She also takes blood thinners. She also continues symptom oximeter after her diagnosis of breast cancer. Recently she was seen by her primary care doctor because of worsening shortness of breath. She was diagnosed with congestive heart failure. Her diuretics were increased and her breathing significantly improved. Initially she was advised to go to the hospital but the patient is reluctant to do so. Now she is back to her baseline. She continues on the higher dose diuretics. She will undergo blood work soon and will follow- up with her primary care doctor soon. I did request that she get an x-ray as well. Will follow-up in 4-6 months or sooner if she has any worsening symptoms or if her chest x-ray is abnormal. 06/17/2023 the patient is here for pulmonary follow-up visit. The patient overall has been doing okay although she lost her wallet and is concerned. She has been using the oxygen with good effect. She does better with continuous flow although the conserving device is easier for her to handle. She uses it at 3 L pulse with activity. And at nighttime she does sleep with the oxygen at 2 L with good effect. Now she is looking to change insurance companies. She is going to switch [employer] who does not cover [employer]. Therefore his she is going to have to switch over to [employer]. Was the patient is situated with [employer] will provide him with the necessary paperwork for her to continue without care. She does need to continue with the oxygen. The patient also has to monitor closely her weight. Over the summertime she did go into heart failure and she did refuse to go to the hospital. Therefore she stayed at home with increasing shortness of breath. The patient is weighing herself daily and she will make a note if she gained 2 lb in 24 hours or more. She also has to be careful with dietary discretion and avoid salt. From a respiratory status she is doing good on her current medicines. She was supposed to go for chest x-ray but since she lost her wallet she is preoccupied with that will hold off until the next visit. If the patient has any issues prior to the next visit she will call for an earlier assessment. [facility] Medical History (Updated 06/17/23 @ 11:01 by Bipin Akers MD) History of cancer of upper lobe bronchus or lung Age-related osteoporosis without current pathological fracture History of right breast cancer Mesenteric ischemia Diverticular disease Atrial fibrillation Congestive heart failure Degenerative disc disease Coronary artery disease Obesity (BMI 30-39.9) Peripheral vascular disease Hypercholesterolemia TIA (transient ischemic attack) Anemia Breast cancer Small cell lung cancer, right lower lobe HTN (hypertension) COPD (chronic obstructive pulmonary disease) Surgical History History of lumpectomy of right breast H/O resection of small bowel Family History Father Heart disease Mother Heart disease Brother Multiple myeloma Brother Lung cancer Social History Household Members: None Housing: Apartment Are you a primary after school caregiver to a significant other at home: No Do you presently have visiting nurse or other home services: No Alcohol intake: never Patient Tobacco Use Status: Former Tobacco user Tobacco use type: Cigarette e-Cigarette/Vaping Use: Never Used Second Hand Smoke Exposure: No service: No Current occupational status: retired Current occupational exposures/hazards: No Cognitive needs: No Hearing needs: Yes Vision needs: Yes Female Reproductive History Menstrual Age of Menarche: 13 Review of Systems Const Denies chills and Denies fever(s) Card Reports dyspnea and Reports dyspnea on exertion Resp Reports dyspnea and Reports dyspnea on exertion GI Denies abdominal pain Denies difficulty voiding Musc Reports back pain and Reports arthralgias Physical Exam Vital Signs: Last Vital Signs Pulse 90 06/17/23 10:55 BP 144/78 H 06/17/23 10:55 Pulse Ox 95 06/17/23 10:55 Oxygen Delivery Method Nasal Cannula 06/17/23 10:55 Oxygen Flow Rate 3 06/17/23 10:55 BMI result Body Mass Index 32.2 Const General: alert Neck Neck: Yes normal visual inspection, Yes full ROM and Yes no lymphadenopathy Chest Chest palpation & inspection: normal inspection of the chest Resp Effort & Inspection: normal respiratory effort Auscultation: diminished lung sounds Cardio Rate: regular rate Rhythm: regular rhythm Heart sounds: S1 normal heart sound present and S2 normal heart sound present GI Palpation (GI): Soft to palpation and nontender Auscultation: normal bowel sounds Skin General skin exam: rashes and/or lesions noted Assessment & Plan Assessment & Plan (1) Chronic respiratory failure: Code(s): J96.10 - Chronic respiratory failure, unspecified whether with hypoxia or hypercapnia Qualifiers: Respiratory failure complication: hypoxia Qualified Code(s): J96.11 - Chronic respiratory failure with hypoxia (2) COPD (chronic obstructive pulmonary disease): Code(s): J44.9 - Chronic obstructive pulmonary disease, unspecified Qualifiers: COPD type: emphysema Emphysema type: unspecified Qualified Code(s): J43.9 - Emphysema, unspecified (3) Congestive heart failure: Code(s): I50.9 - Heart failure, unspecified Qualifiers: Heart failure chronicity: unspecified Heart failure type: unspecified Qualified Code(s): I50.9 - Heart failure, unspecified Plan Contiune oxygen supplementation, 3 L nasal cannula pulse with activity and 2L/min at night continue Trelegy daily TRISTAN as needed Diuresis as tolerated CXR when able Compression stockings Follow-up of 6-8 months Coding Level of Care Code Est Pt Level 4 (11570) Diagnoses Chronic respiratory failure with hypoxia J96.11 Respiratory failure complication: hypoxia Pulmonary emphysema, unspecified emphysema type J43.9 COPD type: emphysema Emphysema type: unspecified Congestive heart failure, unspecified HF chronicity, unspecified heart failure type I50.9 Heart failure chronicity: unspecified Heart failure type: unspecified Time Spent (min) 17
== END 2023-06-17 11:15 | disposition home or self-care (01) ==
PROVIDERS: PCP Internal Medicine; Visit Provider Hospitalist
DX: J96.11 Chronic respiratory failure with hypoxia (principal); J43.9 Emphysema, unspecified; I50.9 Heart failure, unspecified
CPT/HCPCS: 99214

== ENCOUNTER → 2023-06-17 10:45 | Outpatient (BNVA) | payer MEDICARE, SELFPAY | PROVIDERS: PCP Internal Medicine; Visit Provider Hospitalist | DX: J43.9 Emphysema, unspecified (principal); J96.11 Chronic respiratory failure with hypoxia; I50.9 Heart failure, unspecified; Z79.899 Other long term (current) drug therapy; Z99.81 Dependence on supplemental oxygen | CPT/HCPCS: 99212 ==

== ENCOUNTER 2023-07-02 10:14 | Outpatient (AMB) | payer MEDICARE, SELFPAY ==
--- NOTE | 2023-07-02 11:07 | MHC.OFFVIS ---
Intake Vital Signs 07/02/23 11:08 Height 5 ft BP 120/62 Blood Pressure Location Lt brachial Position Sitting Pulse 87 Pulse Source Pulse Oximeter Pulse Oximetry (%) 95 Oxygen Delivery Method Nasal Cannula Oxygen Flow Rate 3 Intake Visit Reasons: 6 minute walk Allergies ADONIS Inhibitors [Adonis Inhibitors] Allergy (Severe, Verified 07/02/23 11:08) ANGIOEDEMA Sulfa (Sulfonamide Antibiotics) [Sulfa (Sulfonamides)] Allergy (Intermediate, Verified 07/02/23 11:08) CHILLS Medication List - Last Reconciled 07/02/23 by Malou Tovar LPN albuterol sulfate 90 mcg/actuation 2 puffs inhalation Q6H PRN apixaban (Eliquis) 5 mg PO BID 90 days atorvastatin 20 mg PO DAILY diltiazem HCl 180 mg PO DAILY fluticasone propionate 50 mcg/actuation 1 spray intranasal DAILY furosemide 40 mg PO DAILY 90 days isosorbide mononitrate ER 30 mg PO DAILY 90 days medroxyprogesterone (Provera) 10 mg PO DAILY metoprolol tartrate 50 mg PO BID potassium chloride ER 20 mEq PO Q2D Trelegy Ellipta 100-62.5-25 mcg ([id number]) 1 ea PO DAILY NS PFSH Medical History (Updated 06/17/23 @ 11:01 by Bipin Akers MD) History of cancer of upper lobe bronchus or lung Age-related osteoporosis without current pathological fracture History of right breast cancer Mesenteric ischemia Diverticular disease Atrial fibrillation Congestive heart failure Degenerative disc disease Coronary artery disease Obesity (BMI 30-39.9) Peripheral vascular disease Hypercholesterolemia TIA (transient ischemic attack) Anemia Breast cancer Small cell lung cancer, right lower lobe HTN (hypertension) COPD (chronic obstructive pulmonary disease) Surgical History History of lumpectomy of right breast H/O resection of small bowel Family History Father Heart disease Mother Heart disease Brother Multiple myeloma Brother Lung cancer Social History Household Members: None Housing: Apartment Are you a primary personal care worker to a significant other at home: No Do you presently have visiting nurse or other home services: No Alcohol intake: never Patient Tobacco Use Status: Former Tobacco user Tobacco use type: Cigarette e-Cigarette/Vaping Use: Never Used Second Hand Smoke Exposure: No service: No Current occupational status: retired Current occupational exposures/hazards: No Cognitive needs: No Hearing needs: Yes Vision needs: Yes Female Reproductive History Menstrual Age of Menarche: 13 Physical Exam Vital Signs: Last Vital Signs Pulse 87 07/02/23 11:08 BP 120/62 07/02/23 11:08 Pulse Ox 95 07/02/23 11:08 Oxygen Delivery Method Nasal Cannula 07/02/23 11:08 Oxygen Flow Rate 3 07/02/23 11:08 Office Procedures 6 Minute Walk Time:: 10:30 SPO2 % at rest: 87 Pulse at rest: 87 SPO2 % during excercise: 86 Pulse during excercise: 88 SPO2 % after excercise: 93 Pulse after excercise: 86 Distance in yards walked: 100 Red Score: 3 Performance Observations:: Zenia SPO2 at rest on room air was 87%, O2 started at 2 lpm and her SPO2 increased to 95%. Zenia walked on level ground with the assistance of a cane. She walked for 20 yards before her SPO2 decreased to 86% O2 increased to 3 lpm and her SPO2 recovered to 95%, she maintained her SPO2 93-95% for the remainder of the walk. [address] - 6 Minute Walk Assessment & Plan Assessment & Plan (1) COPD (chronic obstructive pulmonary disease): Code(s): J44.9 - Chronic obstructive pulmonary disease, unspecified Qualifiers: COPD type: emphysema Emphysema type: unspecified Qualified Code(s): J43.9 - Emphysema, unspecified Plan 6MWT Orders: Orders AMB 6 minute walk 07/02/23 J44.9 - Chronic obstructive pulmonary disease, unspecified Coding Level of Care Code Established Pt Est Pt Level 1 (75795) Patient Type Established Diagnoses Pulmonary emphysema, unspecified emphysema type J43.9 COPD type: emphysema Emphysema type: unspecified CPT Codes Coding ([id number]) Comment NURSE VISIT ONLY
[2023-07-02 11:08] VITALS: BP 120/62; PULSE 87; O2SAT 95
[2023-07-02 11:11] VITALS: PULSE 87; O2SAT 87
== END 2023-07-02 10:54 | disposition home or self-care (01) ==
PROVIDERS: PCP Internal Medicine; Visit Provider Hospitalist
DX: J43.9 Emphysema, unspecified (principal)

== ENCOUNTER → 2023-07-02 10:14 | Outpatient (BNVA) | payer MEDICARE, SELFPAY | PROVIDERS: PCP Internal Medicine; Visit Provider Hospitalist | DX: J43.9 Emphysema, unspecified (principal) | CPT/HCPCS: 99211 ==

== ENCOUNTER 2023-07-30 09:16 | Outpatient (AMB) | payer OTHER, SELFPAY ==
[2023-07-30 09:18] VITALS: BP 142/68; PULSE 110; O2SAT 90; BMI 32.6
--- NOTE | 2023-07-30 09:18 | MHC.PC.OV ---
Vital Signs 07/30/23 09:18 Height 5 ft Weight 167 lb 0.4 oz BMI 32.6 BP 142/68 H Blood Pressure Location Lt brachial Position Sitting Pulse 110 H Pulse Source Pulse Oximeter Pulse Oximetry (%) 90 L Oxygen Delivery Method Nasal Cannula Oxygen Flow Rate 2 Intake Visit Reasons: DM Vocational Trainer Required: No Allergies ADONIS Inhibitors [Adonis Inhibitors] Allergy (Severe, Verified 07/30/23 09:25) ANGIOEDEMA Sulfa (Sulfonamide Antibiotics) [Sulfa (Sulfonamides)] Allergy (Intermediate, Verified 07/30/23 09:25) CHILLS Tobacco use date assessed: 07/30/23 Fall risk assessment: No Falls in past year Last assessed Fall Risk: 07/30/23 Dental Screening Dental Screen Date: 07/30/23 HPI DM HPI Details 88-year-old obese female with diabetes mellitus coronary artery disease atrial fibrillation hypertension COPD hypercholesterolemia congestive heart failure last seen in April 2023. Patient is here for follow-up review of the notes was seen by COPD did a 6 minute walk at rest room air 87% walk 20 yd before her oxygen saturation went down to 86. On Trelegy patient also had an x-ray of the right knee showing no fractures and are only arthritis. April 2023 cardiovascular notes continuing good present medication. [facility] Medical History (Updated 07/30/23 @ 09:49 by Radha Ramsey MD) History of cancer of upper lobe bronchus or lung Age-related osteoporosis without current pathological fracture History of right breast cancer Mesenteric ischemia Diverticular disease Atrial fibrillation Congestive heart failure Degenerative disc disease Coronary artery disease Obesity (BMI 30-39.9) Peripheral vascular disease Hypercholesterolemia TIA (transient ischemic attack) Anemia Breast cancer Small cell lung cancer, right lower lobe HTN (hypertension) COPD (chronic obstructive pulmonary disease) Surgical History History of lumpectomy of right breast H/O resection of small bowel Family History Father Heart disease Mother Heart disease Brother Multiple myeloma Brother Lung cancer Social History Household Members: None Housing: Apartment Are you a primary child care director to a significant other at home: No Do you presently have visiting nurse or other home services: No Alcohol intake: never Patient Tobacco Use Status: Former Tobacco user Tobacco use type: Cigarette e-Cigarette/Vaping Use: Never Used Second Hand Smoke Exposure: No service: No Current occupational status: retired Current occupational exposures/hazards: No Cognitive needs: No Hearing needs: Yes Vision needs: Yes Female Reproductive History Menstrual Age of Menarche: 13 Questionnaire Thrive Questionnaire Date Thrive assessed: 07/30/23 I am a: Patient What is your living situation today?: I have a steady place to live Within the past 12 months, did the food you bought not last and you didn't have the money to get more?: Never true Within the past 12 months, did you worry whether your food would run out before you got money to buy more?: Never true Do you have trouble paying for medicines?: No Do you have trouble getting transportation to medical appointments?: No Do you have trouble paying your heating and electricity bill?: No Do you have trouble taking care of your child, family member or friend?: No Do you have trouble with day-to-day activities such as bathing, preparing meals, shopping, managing finances, etc.?: No Are you currently unemployed and looking for a job?: No Are you interested in more education?: No Please select the resources that you would like help with: None THRIVE Score: 0 AUDIT C Alcohol Use Questionnaire (AUDIT-C) 1. How often do you have a drink containing alcohol?: Monthly or less 2. How many drinks containing alcohol do you have on a typical day when you are drinking?: 1 or 2 3. How often do you have six or more drinks on one occasion?: Never Total Score: 1 DILLON-7 AMB Questionnaire DILLON-7 Date DILLON - 7 assessed: 07/30/23 Source: Developed by Drs. Navin Almeida, Ene Fuentes, James Miller and colleagues, with an educational daniel from [employer]. Physical exam (Primary Care) Vital Signs: Last Vital Signs Pulse 110 H 07/30/23 09:18 BP 142/68 H 07/30/23 09:18 Pulse Ox 90 L 07/30/23 09:18 Oxygen Delivery Method Nasal Cannula 07/30/23 09:18 Oxygen Flow Rate 2 07/30/23 09:18 BMI result Body Mass Index 32.6 Tobacco/Smoking Status: Tobacco use Status Tobacco use date assessed 07/30/23 07/30/23 09:19 Patient Tobacco Use Status Former Tobacco user 07/30/23 09:19 Tobacco use type Cigarette 07/30/23 09:19 e-Cigarette/Vaping Use Never Used 07/30/23 09:19 Thrive Assessment: Date of Thrive Assessment Date Thrive assessed 07/30/23 07/30/23 09:19 Const General: alert; No acute distress Eyes Conjunctivae: conjunctivae normal Resp Auscultation: clear to auscultation bilaterally Cardio Rate: regular rate Rhythm: regular rhythm GI Inspection: Yes normal to inspection Extrem General: Yes normal to inspection and No edema Results AMB Hemoglobin A1c AMB Hemoglobin A1c 6.7 % Last Edit by MARSHA Gao on 07/30/23 09:36 Results Reviewed Results Reviewed: Laboratory Last Values Hgb A1c (Clinic) 6.7 % (4.0-6.0) H 07/30/23 09:17 Assessment and Plan Assessment & Plan (1) Type 2 diabetes mellitus with hyperglycemia: Code(s): E11.65 - Type 2 diabetes mellitus with hyperglycemia Plan: Decrease the amount of carbohydrate intake, pasta, bread, rice and potatoes are all sugar and that is aside from all the sweet stuff, remember that fruits are good but they are Sweet also. Hemoglobin A1c goal of less than 7.0 patient's hemoglobin A1c is controlled at 6.7 diet controlled (2) History of right breast cancer: Comment: January mammogram Code(s): Z85.3 - Personal history of malignant neoplasm of breast Plan: Up-to-date with mammogram December 2022 (3) Coronary artery disease: Comment: Echocardiogram May 2018 EF 60-65% moderate pulmonary hypertension, echo December 2018 EF 45-50% pulmonary hypertension Code(s): I25.10 - Atherosclerotic heart disease of [place] coronary artery without angina pectoris Qualifiers: Coronary Disease-Associated Artery/Lesion type: [place] artery [place] vs. transplanted heart: [place] heart Associated angina: without angina Qualified Code(s): I25.10 - Atherosclerotic heart disease of [place] coronary artery without angina pectoris Plan: Control the cholesterol, weight, blood pressure, diabetes (4) COPD (chronic obstructive pulmonary disease): Code(s): J44.9 - Chronic obstructive pulmonary disease, unspecified Qualifiers: COPD type: emphysema Emphysema type: unspecified Qualified Code(s): J43.9 - Emphysema, unspecified Plan: Patient follows up with Pulmonary, on oxygen had a 6 minute test walk and needs oxygen 3 L on walking and 2 L on resting (5) HTN (hypertension): Code(s): I10 - Essential (primary) hypertension Qualifiers: Hypertension type: essential hypertension Qualified Code(s): I10 - Essential (primary) hypertension Plan: Continue with blood pressure medication. Decrease salt intake and exercise takes diltiazem 180 mg once a day metoprolol 50 mg twice a day (6) Hypercholesterolemia: Comment: September 2021 Code(s): E78.00 - Pure hypercholesterolemia, unspecified Plan: Avoid fried foods, chicken skin, eggs, butter margarine, pastries and meat. Be it pork or beef they have a lot of cholesterol LDL goal of less than 70 and triglyceride of less than 150. On atorvastatin 20 March 2023 last blood work (7) Atrial fibrillation: Code(s): I48.91 - Unspecified atrial fibrillation Qualifiers: Atrial fibrillation type: paroxysmal Qualified Code(s): I48.0 - Paroxysmal atrial fibrillation Plan: Continue with anticoagulation and diltiazem (8) Congestive heart failure: Code(s): I50.9 - Heart failure, unspecified Qualifiers: Heart failure type: unspecified Heart failure chronicity: unspecified Qualified Code(s): I50.9 - Heart failure, unspecified Plan: Continue with isosorbide mononitrate, diuretic. avoid sodium (9) Abnormal vaginal bleeding: Code(s): N93.9 - Abnormal uterine and vaginal bleeding, unspecified Plan: Patient was seen by gynecology and was placed on hormones medroxyprogesterone. went to another gyne- has spotting right now and stopped med. Orders: Orders Complete Blood Count Auto Diff Today I50.9 - Heart failure, unspecified Comprehensive Met. Panel Today I50.9 - Heart failure, unspecified Free T4 (Free Thyroxine) Today I50.9 - Heart failure, unspecified AMB Hemoglobin A1c Today E11.65 - Type 2 diabetes mellitus with hyperglycemia B Type Natriuretic Peptide Today I50.9 - Heart failure, unspecified Thyroid Stimulating Hormone Today I50.9 - Heart failure, unspecified Magnesium Today I50.9 - Heart failure, unspecified Coding Level of Care Code Est Pt Level 4 (57705) Diagnoses Type 2 diabetes mellitus with hyperglycemia E11.65 History of right breast cancer Z85.3 Coronary artery disease involving [place] coronary artery of [place] heart without angina pectoris I25.10 Coronary Disease-Associated Artery/Lesion type: [place] artery [place] vs. transplanted heart: [place] heart Associated angina: without angina Pulmonary emphysema, unspecified emphysema type J43.9 COPD type: emphysema Emphysema type: unspecified Essential hypertension I10 Hypertension type: essential hypertension Hypercholesterolemia E78.00 Paroxysmal atrial fibrillation I48.0 Atrial fibrillation type: paroxysmal Congestive heart failure, unspecified HF chronicity, unspecified heart failure type I50.9 Heart failure type: unspecified Heart failure chronicity: unspecified Abnormal vaginal bleeding N93.9
== END 2023-07-30 10:07 | disposition home or self-care (01) ==
PROVIDERS: PCP Internal Medicine; Visit Provider Internal Medicine
DX: E11.65 Type 2 diabetes mellitus with hyperglycemia (principal); Z85.3 Personal history of malignant neoplasm of breast; I25.10 Atherosclerotic heart disease of native coronary artery without angina pectoris; J43.9 Emphysema, unspecified; I10 Essential (primary) hypertension; E78.00 Pure hypercholesterolemia, unspecified; N93.9 Abnormal uterine and vaginal bleeding, unspecified
CPT/HCPCS: 83036; 99214

== ENCOUNTER 2023-10-22 08:15 | Outpatient (REF) | payer MEDICARE, SELFPAY ==
[2023-10-22 10:29] LABS: Basophils Absolute Auto 0.1 X10*3/uL (0.0-0.2); Basophils Percent Auto 0.6 % (0-2); Eosinophils Absolute Auto 0.1 X10*3/uL (0.0-0.4); Eosinophils Percent Auto 1.4 % (0-4); Hematocrit 40.9 % (37.0-47.0); Hemoglobin 12.4 g/dl (12.0-16.0); Imm Gran Abs Auto 0.04 X10*3/uL (0.00-0.03); Imm Gran Pct Auto 0.5 % (0.0-0.4); Lymphocytes Absolute Auto 1.5 X10*3/uL (1.2-4.9); Lymphocytes Percent Auto 17.7 % (20-40); MANUAL DIFF FLAG NO; Mean Corpuscular HGB Conc 30.3 g/dl (31.0-35.0); Mean Corpuscular Hemoglobin 29.3 pg (27.0-33.0); Mean Corpuscular Volume 96.7 fL (80.0-98.0); Mean Platelet Volume 11.6 fL (9.4-12.3); Neutrophils Absolute Auto 5.9 x10*3/uL (2.0-8.3); Neutrophils Percent Auto 67.8 % (45-73); Platelet Count 220 X10*3/uL (160-400); Red Blood Count 4.23 X10*6/uL (4.20-5.50); Red Cell Distribution Width 13.7 % (11.0-16.0); White Blood Count 8.7 X10*3/uL (4.8-10.8)
[2023-10-22 11:01] LABS: Alanine Aminotransferase 8 U/L (0-31); Albumin Level 3.8 g/dL (3.5-5.0); Alkaline Phosphatase 64 U/L (39-117); Anion Gap 16 (12-20); Aspartate Amino Transferase 15 U/L (5-31); Bilirubin Total 0.9 mg/dL (0.0-1.0); Blood Urea Nitrogen 23 mg/dL (9-16); Calcium 9.3 mg/dL (8.4-10.2); Carbon Dioxide 31 mmol/L (22-29); Chloride 101 mmol/L (96-108); Estimated Glomerular Filt Rate > 60; Free T4 (Free Thyroxine) 1.05 ng/dL (0.71-1.85); Glucose Random 132 mg/dL (60-115); Potassium 3.8 mmol/L (3.3-5.1); Sodium 144 mmol/L (135-145); Thyroid Stimulating Hormone 2.09 uIU/mL (0.32-4.0); Total Protein 7.7 g/dL (6.5-8.0)
[2023-10-22 11:05] LABS: B Type Natriuretic Peptide 383 pg/mL (<100)
== END 2023-10-22 08:16 | disposition home or self-care (01) ==
LOC: HO.HMGCLDS 08:15
PROVIDERS: PCP Internal Medicine; Visit Provider Internal Medicine
DX: I50.9 Heart failure, unspecified (principal)
CPT/HCPCS: 36415; 80053; 83735; 83880; 84439; 84443; 85025

== ENCOUNTER 2023-11-05 10:32 | Outpatient (AMB) | payer MEDICARE, SELFPAY ==
[2023-11-05 10:38] VITALS: BP 110/62; PULSE 82; O2SAT 83; BMI 32.8
--- NOTE | 2023-11-05 10:38 | A.OFFPC_ITS ---
Vital Signs 11/05/23 10:38 Height 5 ft Weight 168 lb BMI 32.8 BP 110/62 Blood Pressure Location Lt brachial Position Sitting Pulse 82 Pulse Source Pulse Oximeter Pulse Oximetry (%) 83 L Oxygen Delivery Method Nasal Cannula Oxygen Flow Rate 3 Intake Visit Reasons: CHF, CAD, atrial fibrillation Binding Cutter Required: No Medical Coding Technician: Not Required per policy Accompanied by: Self / Same As Patient Allergies ADONIS Inhibitors [Adonis Inhibitors] Allergy (Severe, Verified 11/05/23 10:38) ANGIOEDEMA Sulfa (Sulfonamide Antibiotics) [Sulfa (Sulfonamides)] Allergy (Intermediate, Verified 11/05/23 10:38) CHILLS Tobacco use date assessed: 07/30/23 Fall risk assessment: No Falls in past year Last assessed Fall Risk: 11/05/23 Dental Screening Dental Screen Date: 07/30/23 HPI CHF, CAD, atrial fibrillation HPI Details 88 Year old obese female with controlled diabetes mellitus history of breast cancer right coronary artery disease hypertension COPD hypercholesterolemia atrial fibrillation with congestive heart failure last seen in 07/21/2023. Review of the notes has seen Cardiology 10/19/2023 has been advised to get echocardiogram AFib controlled. [facility] Medical History (Updated 07/30/23 @ 09:49 by Radha Ramsey MD) History of cancer of upper lobe bronchus or lung Age-related osteoporosis without current pathological fracture History of right breast cancer Mesenteric ischemia Diverticular disease Atrial fibrillation Congestive heart failure Degenerative disc disease Coronary artery disease Obesity (BMI 30-39.9) Peripheral vascular disease Hypercholesterolemia TIA (transient ischemic attack) Anemia Breast cancer Small cell lung cancer, right lower lobe HTN (hypertension) COPD (chronic obstructive pulmonary disease) Surgical History History of lumpectomy of right breast H/O resection of small bowel Family History Father Heart disease Mother Heart disease Brother Multiple myeloma Brother Lung cancer Social History Household Members: None Housing: Apartment Are you a primary primary care nurse to a significant other at home: No Do you presently have visiting nurse or other home services: No Alcohol intake: never Patient Tobacco Use Status: Former Tobacco user Tobacco use type: Cigarette e-Cigarette/Vaping Use: Never Used Second Hand Smoke Exposure: No service: No Current occupational status: retired Current occupational exposures/hazards: No Cognitive needs: Yes (walker) Hearing needs: Yes Vision needs: Yes (glasses) Female Reproductive History Menstrual Age of Menarche: 13 Questionnaire PHQ-9 Over the last 2 weeks, how often have you been bothered by any of the following problems? 1. Little interest or pleasure in doing things: not at all 2. Feeling down, depressed, or hopeless: not at all 3. Trouble falling or staying asleep, or sleeping too much: not at all 4. Feeling tired or having little energy: not at all 5. Poor appetite or overeating: not at all 6. Feeling bad about yourself - or that you are a failure or have let yourself or your family down: not at all 7. Trouble concentrating on things, such as reading the newspaper or watching television: not at all 8. Moving or speaking so slowly that other people could have noticed. Or the opposite - being so fidgety or restless that you have been moving around a lot more than usual: not at all 9. Thoughts that you would be better off or of hurting yourself in some way: not at all Total score: 0 Depression Screening Interpretation: Negative Depression Screening Done: Yes Source: Developed by Drs. Navin Almeida, James Randhawa and colleagues, with an educational daniel from [employer]. Thrive Questionnaire Date Thrive assessed: 07/30/23 DILLON-7 AMB Questionnaire DILLON-7 Date DILLON - 7 assessed: 07/30/23 Source: Developed by Drs. Navin Almeida, James Randhawa and colleagues, with an educational daniel from [employer]. Physical exam (Primary Care) Vital Signs: Last Vital Signs Pulse 82 11/05/23 10:38 BP 110/62 11/05/23 10:38 Pulse Ox 83 L 11/05/23 10:38 Oxygen Delivery Method Nasal Cannula 11/05/23 10:38 Oxygen Flow Rate 3 11/05/23 10:38 BMI result Body Mass Index 32.8 Tobacco/Smoking Status: Tobacco use Status Tobacco use date assessed 07/30/23 11/05/23 10:39 Patient Tobacco Use Status Former Tobacco user 11/05/23 10:39 Tobacco use type Cigarette 11/05/23 10:39 e-Cigarette/Vaping Use Never Used 11/05/23 10:39 PHQ-9: PHQ-9 Score PHQ-9: Total score 0 11/05/23 10:53 Depression Screening Interpretation: Negative Thrive Assessment: Date of Thrive Assessment Date Thrive assessed 07/30/23 11/05/23 10:39 Const General: alert; No acute distress Eyes Conjunctivae: conjunctivae normal Resp Auscultation: clear to auscultation bilaterally Cardio Rate: regular rate Rhythm: regular rhythm GI Inspection: Yes normal to inspection Extrem General: Yes normal to inspection and No edema Results AMB Hemoglobin A1c AMB Hemoglobin A1c 6.3 % Last Edit by MARSHA Green on 11/05/23 10:54 Results Reviewed Results Reviewed: Laboratory Last Values Hgb A1c (Clinic) 6.3 % (4.0-6.0) H 11/05/23 10:39 Assessment and Plan Assessment & Plan (1) Type 2 diabetes mellitus with hyperglycemia: Code(s): E11.65 - Type 2 diabetes mellitus with hyperglycemia Plan: Decrease the amount of carbohydrate intake, pasta, bread, rice and potatoes are all sugar and that is aside from all the sweet stuff, remember that fruits are good but they are Sweet also. Hemoglobin A1c goal of less than 6.5. Patient on diet control (2) History of right breast cancer: Comment: January mammogram Code(s): Z85.3 - Personal history of malignant neoplasm of breast Plan: Up-to-date with mammogram (3) Coronary artery disease: Comment: Echocardiogram May 2018 EF 60-65% moderate pulmonary hypertension, echo December 2018 EF 45-50% pulmonary hypertension Code(s): I25.10 - Atherosclerotic heart disease of [place] coronary artery without angina pectoris Qualifiers: Coronary Disease-Associated Artery/Lesion type: [place] artery [place] transplanted heart: [place] heart Associated angina: without angina Qualified Code(s): I25.10 - Atherosclerotic heart disease of [place] coronary artery without angina pectoris Plan: Control the cholesterol, weight, blood pressure, diabetes continue with anticoagulation with Eliquis presently (4) Congestive heart failure: Code(s): I50.9 - Heart failure, unspecified Qualifiers: Heart failure type: unspecified Heart failure chronicity: unspecified Qualified Code(s): I50.9 - Heart failure, unspecified Plan: Furosemide diuretic continue to monitor weight every day continue with isosorbide mononitrate (5) Obesity (BMI 30-39.9): Code(s): E66.9 - Obesity, unspecified Plan: Diet and exercise (6) Hypercholesterolemia: Comment: September 2021 Code(s): E78.00 - Pure hypercholesterolemia, unspecified Plan: Avoid fried foods, chicken skin, eggs, butter margarine, pastries and meat. Be it pork or beef they have a lot of cholesterol takes atorvastatin 20 mg once a (7) HTN (hypertension): Code(s): I10 - Essential (primary) hypertension Qualifiers: Hypertension type: essential hypertension Qualified Code(s): I10 - Essential (primary) hypertension Plan: Continue with blood pressure medication. Decrease salt intake and exercise diltiazem 180 mg once a day metoprolol 50 mg twice a day (8) COPD (chronic obstructive pulmonary disease): Code(s): J44.9 - Chronic obstructive pulmonary disease, unspecified Qualifiers: COPD type: emphysema Emphysema type: unspecified Qualified Code(s): J43.9 - Emphysema, unspecified Plan: Continue with Trelegy and albuterol. Orders: Orders AMB Hemoglobin A1c Today E11.65 - Type 2 diabetes mellitus with hyperglycemia B Type Natriuretic Peptide 3 Months I50.9 - Heart failure, unspecified Comprehensive Met. Panel 3 Months I50.9 - Heart failure, unspecified Complete Blood Count Auto Diff 3 Months I50.9 - Heart failure, unspecified Hemoglobin A1c 3 Months I50.9 - Heart failure, unspecified Magnesium 3 Months I50.9 - Heart failure, unspecified Medications: New inhalational spacing device (Aerochamber MV spacer) As directed 1 ea 0RF J43.9 - Emphysema, unspecified Coding Level of Care Code Est Pt Level 4 (87067) Diagnoses Type 2 diabetes mellitus with hyperglycemia E11.65 History of right breast cancer Z85.3 Coronary artery disease involving [place] coronary artery of [place] heart without angina pectoris I25.10 Coronary Disease-Associated Artery/Lesion type: [place] artery [place] vs. transplanted heart: [place] heart Associated angina: without angina Congestive heart failure, unspecified HF chronicity, unspecified heart failure type I50.9 Heart failure type: unspecified Heart failure chronicity: unspecified Obesity (BMI 30-39.9) E66.9 Hypercholesterolemia E78.00 Essential hypertension I10 Hypertension type: essential hypertension Pulmonary emphysema, unspecified emphysema type J43.9 COPD type: emphysema Emphysema type: unspecified
== END 2023-11-05 11:36 | disposition home or self-care (01) ==
PROVIDERS: PCP Internal Medicine; Visit Provider Internal Medicine
DX: E11.65 Type 2 diabetes mellitus with hyperglycemia (principal); I11.0 Hypertensive heart disease with heart failure; I50.9 Heart failure, unspecified; J43.9 Emphysema, unspecified; Z85.3 Personal history of malignant neoplasm of breast; I25.10 Atherosclerotic heart disease of native coronary artery without angina pectoris; E78.00 Pure hypercholesterolemia, unspecified; E66.9 Obesity, unspecified
CPT/HCPCS: 83036; 99214

== ENCOUNTER 2024-01-08 13:06 | Inpatient (IN) | payer MEDICARE, SELFPAY ==
[2024-01-08] VITALS (8 sets, daily range): BP systolic 125–167; BP diastolic 56–92; PULSE 79–99; RESP 14–20; TEMP 36.2–36.8; O2SAT 90–96; BMI 33.2; BMI 33.9
--- NOTE | ~2024-01-08 | XR_ITS ---
EXAMINATION: XR CHEST CLINICAL INFORMATION: Status post right thoracocentesis COMPARISON: 01/08/2024 TECHNIQUE: Frontal view of the chest was obtained. FINDINGS: There is no interval change in postsurgical changes with melba over the right hilum, no evidence of pleural effusion. No evidence of pneumothorax. XR/XR chest 1V IMPRESSION: No active cardiopulmonary disease.
--- NOTE | ~2024-01-08 | XR_ITS ---
EXAMINATION: XR CHEST CLINICAL INFORMATION: US of breath COMPARISON: 08/20/2022 TECHNIQUE: Frontal view of the chest was obtained. FINDINGS: There is no significant interval change in postsurgical changes in the right lung with surgical clips present in the right hilum. There is blunting of right and left costophrenic angle likely due to small pleural effusion. Cardiomediastinal silhouette is prominent. There are changes of osteoarthritis in the right shoulder. XR/XR chest 1V IMPRESSION: Bilateral pleural effusion, cardiomegaly, postsurgical changes in the right lung.
--- NOTE | ~2024-01-08 | US_ITS ---
PROCEDURE: Ultrasound-guided right thoracentesis History: Right pleural effusion Specimen: A sample of pleural fluid was sent for analysis Access: 5 Japanese Yueh catheter Medications: 10 mL 1% lidocaine TECHNIQUE/FINDINGS Appropriate preprocedural clinical history and imaging studies were reviewed. The patient was brought to the department and placed in the seated position. Ultrasound images of the right thorax were obtained to localize a moderate pleural effusion. Permanent ultrasound images were saved. Risks and benefits and possible complications were discussed with the patient and consent form was signed. An area of the patient's right back was prepped and draped in usual sterile fashion. 10 mL of 1% lidocaine was used to obtain local anesthesia of the skin and deeper tissues. A standard small bore needle was introduced to sample pleural fluid and demonstrate a safe access route. A 5 Japanese Yueh catheter was then used to access the pleural cavity. 450 ml of portia fluid was removed passively. The catheter was then removed. A dressing was applied. A postprocedure chest x-ray will be performed and will be dictated separately. There were no immediate complications. The procedure was performed by Bari Gibson PA-C and supervised by Dr. Hutchison US/US thoracentesis Impression: Ultrasound-guided right thoracentesis
--- NOTE | ~2024-01-08 | CT_ITS ---
EXAMINATION: CT CHEST WITHOUT CONTRAST CLINICAL INFORMATION: Shortness of breath COMPARISON: CT abdomen from 01/26/2023 TECHNIQUE: Multidetector volumetric CT imaging of the chest was done. Axial MIP volume rendering provided. Sagittal and coronal reformatted images were obtained. This CT examination was performed using dose optimization techniques as appropriate, variously including the following: *Automated exposure control *Adjustment of mA and/or kV according to patient size (this includes techniques or standardized protocols for targeted exams where dose is matched to indication/reason for exam; i.e. extremities or head) *Use of iterative reconstruction technique DLP: 158 mGy-cm FINDINGS: LUNGS AND PLEURAL SPACES: Emphysematous bulla in the left lower lobe adjacent to small pleural effusion, peribronchial thickening of the left main bronchus. On the right there is moderate to large loculated pleural effusion, small area of consolidation adjacent to the minor fissure in the right upper lobe and peribronchial thickening. There are areas of patchy groundglass opacities seen in the right lower lobe there is spiculated lesion in the right lower lobe seen on image 20 series 4, measured 0.8 cm, on the lateral view is lesion seen on image 78 series 7 MEDIASTINUM: The noncontrast technique evaluation of mediastinum is limited but there is mild mediastinal lymphadenopathy and there is calcified lymph nodes in the right hilum as well as postsurgical changes with clips in the right hilum and posterior mediastinum. Aorta is calcified but not dilated. There is prominent pulmonary trunk, likely due to pulmonary hypertension. There is cardiomegaly. CORONARY ARTERY CALCIFICATION: Moderate. AXILLA: No lymphadenopathy. UPPER ABDOMEN: Unremarkable. OSSEOUS STRUCTURES: There are changes of degenerative spondylosis. CT/CT chest wo IV con IMPRESSION: 1. Moderate to large loculated pleural effusion on the right. 2. Small area of consolidation in the right upper lobe and patchy groundglass opacities in the right lower lobe. 3. Spiculated lesion in the right lower lobe. 4. Cardiomegaly and pulmonary hypertension. 5. Postoperative changes in the right hilum and posterior mediastinum. Fleischner guidelines were followed.
--- NOTE | 2024-01-08 13:14 | ED_ITS ---
HPI - General Adult General Chief complaint: Dizziness Stated complaint: dizzy, blurred vision Time Seen by Provider: 01/08/24 13:20 History of Present Illness ED Provider: Dr. Harp HPI narrative: 88 y/o F patient; PMH atrial fibrillation on Eliquis, HTN, HLD, T2DM, COPD on baseline 2,5L, hx lung ca s/p lumpectomy; presents from home with report of shortness of breath and lightheadedness that has been worsening for the last few weeks. The patient notes associated mildly productive cough with clear sputum. Also has associated chest pressure. 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 The patient is an ex-smoker. Denies: fever or chills, nausea/vomiting, abdominal pain, diarrhea. Has had 5lb weight gain in 1 week. Related Data Home Medications ?Medication ?Instructions ?Recorded ?Confirmed medroxyprogesterone 10 mg tablet 10 mg PO DAILY 02/03/23 07/02/23 (Provera) Previous Rx's ?Medication ?Instructions ?Recorded fluticasone propionate 50 1 spray intranasal DAILY #3 ea 10/14/22 mcg/actuation nasal spray,suspension atorvastatin 20 mg tablet 20 mg PO DAILY #90 tabs 07/15/23 diltiazem HCl 180 mg 180 mg PO DAILY #90 caps 08/06/23 capsule,extended release 24 hr furosemide 40 mg tablet 40 mg PO DAILY 90 days #90 tabs 08/06/23 potassium chloride 20 mEq 20 meq PO Q2D #45 tabs 08/06/23 tablet,extended release(part/cryst) isosorbide mononitrate 30 mg 30 mg PO DAILY 90 days #90 tabs 09/02/23 tablet,extended release 24 hr Trelegy Ellipta 100 mcg-62.5 1 ea PO DAILY #60 ea 09/19/23 mcg-25 mcg powder for inhalation (cvhmrjbsgee-biyuvxrqb-knhvkamx) apixaban 5 mg tablet (Eliquis) 5 mg PO BID 90 days #180 tabs 09/23/23 metoprolol tartrate 50 mg tablet 50 mg PO BID #180 tabs 10/12/23 inhalational spacing device #1 ea 11/05/23 (Aerochamber MV spacer) albuterol sulfate 90 mcg/actuation 2 puff inhalation Q6H PRN for 11/27/23 aerosol inhaler wheezing #8.5 ea Allergies Allergy/AdvReac Type Severity Reaction Status Date / Time ADONIS Inhibitors Allergy Severe ANGIOEDEMA Verified 01/08/24 13:18 [Adonis Inhibitors] Sulfa (Sulfonamide Allergy Intermediate CHILLS Verified 01/08/24 13:18 Antibiotics) [Sulfa (Sulfonamides)] Review of Systems 2 Review of Systems: Yes all other systems are reviewed and are negative Neurologic: Denies Sensory deficit (Neuro) [facility] Past Medical History Attestation statement: The following information was validated with the patient. Source: old records reviewed Medical History History of cancer of upper lobe bronchus or lung Age-related osteoporosis without current pathological fracture History of right breast cancer Mesenteric ischemia Diverticular disease Atrial fibrillation Congestive heart failure Degenerative disc disease Coronary artery disease Obesity (BMI 30-39.9) Peripheral vascular disease Hypercholesterolemia TIA (transient ischemic attack) Anemia Breast cancer Small cell lung cancer, right lower lobe HTN (hypertension) COPD (chronic obstructive pulmonary disease) Surgical History History of lumpectomy of right breast H/O resection of small bowel Family History Family History Father Heart disease Mother Heart disease Brother Multiple myeloma Brother Lung cancer Social History Social History Household Members: None Housing: Apartment Are you a primary pet care assistant to a significant other at home: No Do you presently have visiting nurse or other home services: No Alcohol intake: never Patient Tobacco Use Status: Former Tobacco user Tobacco use type: Cigarette e-Cigarette/Vaping Use: Never Used Second Hand Smoke Exposure: No Advance Directives: Yes Advance Directives Information Provided: Yes Advance Directives on File: No Do you have a plan to hurt others: No Plan service: No Current occupational status: retired Current occupational exposures/hazards: No Cognitive needs: Yes (walker) Hearing needs: Yes Vision needs: Yes (glasses) Physical Exam ED Vital Signs: Vital Signs - 24 hr 01/08/24 13:14 01/08/24 13:56 Temperature 97.5 F Pulse Rate 79 83 Respiratory Rate 19 14 Blood Pressure 125/56 L Pulse Oximetry 91 L Oxygen Delivery Method Nasal Cannula BMI result Body Mass Index 33.2 Patient is afebrile, hemodynamically stable, requiring 2L NC Const General: cooperative Orientation/consciousness: patient oriented x3 HENMT Head: Yes normal to inspection and Yes atraumatic Eyes General: appearance normal, both eyes and all related structures Pupils: Equal, round and reactive pupils present EOM: EOMs intact bilaterally Neck Neck: Yes normal visual inspection, Yes full ROM, Yes supple and No tender Chest Chest palpation & inspection: normal inspection of the chest and normal palpation of entire chest wall Resp Other: Tight respirations with difficulty speaking in full sentences without pauses for breath. Diminished in bilateral bases. Mild end-expiratory wheezing. Cardio Rate: regular rate Rhythm: abnormal rhythm (Irregularly irregular) Peripheral pulses: Peripheral pulses 2+ throughout GI Inspection: Yes normal to inspection, No Abdominal wall edema and No distended Palpation (GI): Soft to palpation, not firm, nontender, no guarding and not rigid Percussion: Yes normal to percussion Back/Spine/Pelvis Back: No back tenderness Neuro General: patient oriented x3 Cranial nerves: Yes Equal, round and reactive pupils present Motor exam (neuro): 5/5 motor strength present throughout Sensory Exam: No Sensory deficit (Neuro) Extrem Other: 1+ bilateral lower extremity edema Course Course Course Narrative: This is an RME: Additional HPI, ROS, PE not included below will be deferred to primary provider. RME assessment and note performed by: Estella Branham PA-C This is a [id number]-female, with a hx of DM, breast CA, CAD, HTN, COPD, HLD, who presents to the ER with complaints of SOB and dizziness. Plan: labs, EKG, CXR Reevaluation(s) Reevaluation #1: Patient is afebrile and hemodynamically stable, requiring 4L NC for oxygen supplementation. Added ED bronchodilator protocal and solu-medrol for COPD exacerbation treatment. Providing Lasix 40mg IV as patient missed home dose. BNP mildly elevated at 398. Troponin 7.9, will plan repeat. Plan: Admit to hospitalist for likely CHF exacerbation Condition: stable Medications Administered Discontinued Medications Generic Name Dose Route Start Last Admin Trade Name Freq PRN Reason Stop Dose Admin Albuterol Sulfate 2.5 mg 01/08/24 13:49 01/08/24 13:53 Albuterol Sulfate (0.083%) 2.5 Mg/3 Ml Vial.Neb INHALE 01/08/24 13:50 2.5 mg ONCE ONE Administration Furosemide 40 mg 01/08/24 13:48 01/08/24 14:18 Furosemide 40 Mg/4 Ml Vial IVPUSH 01/08/24 13:49 40 mg ONCE ONE Administration Protocol Methylprednisolone Sodium Succinate 125 mg 01/08/24 13:34 01/08/24 14:18 Methylprednisolone Sod Succ 125 Mg/2 Ml Vial IVPUSH 01/08/24 13:35 125 mg ONCE ONE Administration Medical Decision Making Lab Data 01/08/24 13:47 01/08/24 13:47 Labs: Lab Results 01/08/24 Range/Units 13:47 WBC 8.9 (4.8-10.8) X10*3/uL RBC 4.00 L (4.20-5.50) X10*6/uL Hgb 11.5 L (12.0-16.0) g/dl Hct 39.0 (37.0-47.0) % MCV 97.5 (80.0-98.0) fL MCH 28.8 (27.0-33.0) pg MCHC 29.5 L (31.0-35.0) g/dl RDW 14.5 (11.0-16.0) % Plt Count 224 (160-400) X10*3/uL MPV 11.2 (9.4-12.3) fL Immature Gran % (Auto) 0.4 (0.0-0.4) % Neut % (Auto) 82.1 H (45-73) % Lymph % (Auto) 7.8 L (20-40) % [place] % (Auto) 8.7 (2-11) % Eos % (Auto) 0.6 (0-4) % Baso % (Auto) 0.4 (0-2) % Lymph # (Auto) 0.7 L (1.2-4.9) X10*3/uL [place] # (Auto) 0.8 (0.1-1.2) X10*3/uL Eos # (Auto) 0.1 (0.0-0.4) X10*3/uL Baso # (Auto) 0.0 (0.0-0.2) X10*3/uL Abs Immat Gran (auto) 0.04 H (0.00-0.03) X10*3/uL Absolute Neuts (auto) 7.3 (2.0-8.3) x10*3/uL Absolute Nucleated RBC 0.000 (0.0-0.012) X10*3/uL Nucleated RBC % (auto) 0.0 (0.0-0.2) /100WBC PT 25.1 H (11.1-13.3) SEC INR 2.1 H (0.9-1.1) Sodium 144 (135-145) mmol/L Potassium 3.9 (3.3-5.1) mmol/L Chloride 99 (96-108) mmol/L Carbon Dioxide 38 H (22-29) mmol/L Anion Gap 11 L (12-20) BUN 19 H (9-16) mg/dL Creatinine 0.88 (0.5-1.4) mg/dL Estim Creat Clear Calc 40.5 Estimated GFR > 60 Random Glucose 166 H (60-115) mg/dL Calcium 9.3 (8.4-10.2) mg/dL Magnesium 1.9 (1.6-2.6) mg/dL Total Bilirubin 1.1 H (0.0-1.0) mg/dL Direct Bilirubin 0.5 (0.0-0.5) mg/dL AST 20 (5-31) U/L ALT 12 (0-31) U/L Alkaline Phosphatase 72 (39-117) U/L Troponin I High Sens 7.9 (<3.5-17.0) ng/L B-Natriuretic Peptide 398 H (<100) pg/mL Total Protein 7.4 (6.5-8.0) g/dL Albumin 3.8 (3.5-5.0) g/dL Influenza Type A (PCR) NEGATIVE (Negative) Influenza Type B (PCR) NEGATIVE (Negative) RSV RNA Qual (PCR) NEGATIVE (Negative) SARS-CoV-2 RNA (RT-PCR) NEGATIVE (Negative) Radiology Impression Discussion of test interpretation with radiology: I have reviewed the radiologist's reading. Radiologist Impression: EXAMINATION: XR CHEST CLINICAL INFORMATION: US of breath COMPARISON: 08/20/2022 TECHNIQUE: Frontal view of the chest was obtained. FINDINGS: There is no significant interval change in postsurgical changes in the right lung with surgical clips present in the right hilum. There is blunting of right and left costophrenic angle likely due to small pleural effusion. Cardiomediastinal silhouette is prominent. There are changes of osteoarthritis in the right shoulder. XR/XR chest 1V IMPRESSION: Bilateral pleural effusion, cardiomegaly, postsurgical changes in the right lung. Discharge Plan Discharge Clinical Impression: CHF exacerbation Patient Disposition: Admitted As Inpatient Print Language: Yakut
--- NOTE | 2024-01-08 13:17 | ECG_ITS ---
Test Reason : DIZZIESS Blood Pressure : / mmHG Vent. Rate : 080 BPM Atrial Rate : 000 BPM P-R Int : 000 ms QRS Dur : 068 ms QT Int : 382 ms P-R-T Axes : 000 096 022 degrees QTc Int : 440 ms Atrial fibrillation Rightward axis Septal infarct , age undetermined Abnormal ECG When compared with ECG of 27-JAN-2023 12:22, Septal infarct is now Present Referred By: Estella Branham Electronically Signed By:CORY COLON MD
[2024-01-08 13:53] LABS: MANUAL DIFF FLAG NO
[2024-01-08] MEDS: Albuterol Sulfate (0.083%) 2.5 MG/3 ML VIAL.NEB INHALE (13:53)
[2024-01-08 13:55] LABS: Basophils Percent Auto 0.4 % (0-2); Eosinophils Absolute Auto 0.1 X10*3/uL (0.0-0.4); Eosinophils Percent Auto 0.6 % (0-4); Hemoglobin 11.5 g/dl (12.0-16.0); Imm Gran Abs Auto 0.04 X10*3/uL (0.00-0.03); Imm Gran Pct Auto 0.4 % (0.0-0.4); Lymphocytes Absolute Auto 0.7 X10*3/uL (1.2-4.9); Lymphocytes Percent Auto 7.8 % (20-40); Mean Corpuscular HGB Conc 29.5 g/dl (31.0-35.0); Mean Corpuscular Hemoglobin 28.8 pg (27.0-33.0); Mean Corpuscular Volume 97.5 fL (80.0-98.0); Mean Platelet Volume 11.2 fL (9.4-12.3); Monocytes Absolute Auto 0.8 X10*3/uL (0.1-1.2); Monocytes Percent Auto 8.7 % (2-11); Neutrophils Absolute Auto 7.3 x10*3/uL (2.0-8.3); Neutrophils Percent Auto 82.1 % (45-73); Platelet Count 224 X10*3/uL (160-400); Red Cell Distribution Width 14.5 % (11.0-16.0); White Blood Count 8.9 X10*3/uL (4.8-10.8)
[2024-01-08 14:00] LABS: INTERNATIONAL NORM RATIO 2.1 (0.9-1.1); Prothrombin Time 25.1 SEC (11.1-13.3)
[2024-01-08] MEDS: methylPREDNISolone Sod Succ 125 MG/2 ML VIAL IVPUSH (14:18)
[2024-01-08] MEDS: Furosemide 40 MG/4 ML VIAL IVPUSH (14:18)
[2024-01-08 14:22] LABS: B Type Natriuretic Peptide 398 pg/mL (<100)
[2024-01-08 14:23] LABS: Troponin-I High Sensitivity 7.9 ng/L (<3.5-17.0)
[2024-01-08 14:27] LABS: Alanine Aminotransferase 12 U/L (0-31); Albumin Level 3.8 g/dL (3.5-5.0); Alkaline Phosphatase 72 U/L (39-117); Anion Gap 11 (12-20); Aspartate Amino Transferase 20 U/L (5-31); Bilirubin Direct 0.5 mg/dL (0.0-0.5); Bilirubin Total 1.1 mg/dL (0.0-1.0); Blood Urea Nitrogen 19 mg/dL (9-16); Calcium 9.3 mg/dL (8.4-10.2); Carbon Dioxide 38 mmol/L (22-29); Chloride 99 mmol/L (96-108); Creatinine Clr Calc Pharmacy 40.5; Estimated Glomerular Filt Rate > 60; Glucose Random 166 mg/dL (60-115); Magnesium 1.9 mg/dL (1.6-2.6); Potassium 3.9 mmol/L (3.3-5.1); Sodium 144 mmol/L (135-145); Total Protein 7.4 g/dL (6.5-8.0)
[2024-01-08 14:31] LABS: Influenza A PCR NEGATIVE (Negative); Influenza B PCR NEGATIVE (Negative); Resp Syncy Virus RNA Qual PCR NEGATIVE (Negative); SARS COV2 PCR INHOUSE NEGATIVE (Negative)
--- NOTE | 2024-01-08 15:30 | MHC.EDTECH ---
Patient used commode
--- NOTE | 2024-01-08 15:30 | PC.NURSE ---
Addendum entered by Yen Olivier RN 01/08/24 15:31: for strict I&O's Original Note: Per admitting provider request, patient to be placed on purewick.
--- NOTE | 2024-01-08 15:40 | P.HPHOSP_ITS ---
History of Present Illness Date of Service: 01/08/24 Attending physician on admission: Marty Contreras Chief Complaint: sob 88 year old female with persistent atrial fibrillation anticoagulated with Eliquis, heart failure reduced ejection fraction, xmh-[id number]-yfaarjpyg type 2 diabetes, COPD, chronic hypoxemic respiratory failure on 2.5/3 L at baseline, history of breast cancer, history of lung cancer 2002 presented to the ED earlier today accompanied by her daughter for evaluation of dyspnea that has been ongoing for the last 2 weeks. She reports constant dyspnea that is worse with exertion and speaking and occasionally causes lightheadedness. She has also reported mild chest pressure that is nonradiating that has also been ongoing for 2 weeks. She states she sleeps with 2 pillows at baseline, but does have witnessed orthopnea on examination. Denies any PND. She reports she has gained 5 lb in the last 4 days. Has been compliant with diuretics. No increase in albuterol usage. Since arrival, has been hypoxic to 83% now maintaining oximetry 92% on 6 L but is noted to desaturate into the 80s with any movement or speaking. Vitals are otherwise stable. Hematology studies unremarkable. Renal function baseline, electrolyte levels normal, except for CO2 of 38. VBG pending. Troponin 7.9, BNP 398. Negative for COVID, flu, RSV. Chest x-ray shows bilateral pleural effusions, cardiomegaly. EKG shows atrial fibrillation, rate controlled at 80, without any significant changes from prior EKGs. In the ED, has received 40 mg IV Lasix. She will be admitted for further management of CHF exacerbation. Review of Systems 2 Review of Systems: Yes all other systems are reviewed and are negative [facility] Medical History History of cancer of upper lobe bronchus or lung Age-related osteoporosis without current pathological fracture History of right breast cancer Mesenteric ischemia Diverticular disease Atrial fibrillation Congestive heart failure Degenerative disc disease Coronary artery disease Obesity (BMI 30-39.9) Peripheral vascular disease Hypercholesterolemia TIA (transient ischemic attack) Anemia Breast cancer Small cell lung cancer, right lower lobe HTN (hypertension) COPD (chronic obstructive pulmonary disease) Family History Father Heart disease Mother Heart disease Brother Multiple myeloma Brother Lung cancer Surgical History History of lumpectomy of right breast H/O resection of small bowel Social History Household Members: None Housing: Apartment Are you a primary nurse care manager to a significant other at home: No Do you presently have visiting nurse or other home services: No Alcohol intake: never Patient Tobacco Use Status: Former Tobacco user Tobacco use type: Cigarette Smoked in Last 30 Days: No e-Cigarette/Vaping Use: Never Used Second Hand Smoke Exposure: No Use of substances other than those prescribed or required for medical reasons: No Advance Directives: Yes Advance Directives Information Provided: Yes Advance Directives on File: No Do you have a plan to hurt others: No Plan Nutrition Risks: No Nutritional Risk service: No Current occupational status: retired Current occupational exposures/hazards: No Cognitive needs: Yes (walker) Hearing needs: Yes Vision needs: Yes (glasses) Meds Allergies Allergy/AdvReac Type Severity Reaction Status Date / Time ADONIS Inhibitors Allergy Severe ANGIOEDEMA Verified 01/08/24 13:18 [Adonis Inhibitors] Sulfa (Sulfonamide Allergy Intermediate CHILLS Verified 01/08/24 13:18 Antibiotics) [Sulfa (Sulfonamides)] Active Medications: Current Medications Acetaminophen (Acetaminophen 325 Mg Tablet) 650 mg PO Q6H PRN PRN Reason: Pain, Mild (Pain Scale 1-3), fever or headache Albuterol/Ipratropium (Albuterol/Iprat 2.5/0.5mg 3 Ml Ampul.Neb) 3 ml INHALE RQ4H WHILE AWAKE PRN PRN Reason: Shortness of Breath/Wheezing Calcium Carbonate (Calcium Carbonate 750 Mg Tab.Chew) 750 mg PO Q4H PRN PRN Reason: Heartburn Magnesium Hydroxide (Milk Of Magnesia 30 Ml Oral.Susp) 30 ml PO DAILY PRN PRN Reason: Constipation Melatonin (Melatonin 3 Mg Tablet) 6 mg PO BEDTIME PRN PRN Reason: Insomnia Sodium Chloride (0.9 % Sodium Chloride Flush 3 Ml Syringe) 3 ml IVFLUSH QSHIFT [facility] Home Medications ?Medication ?Instructions ?Recorded ?Confirmed ?Last Taken ?Type medroxyprogesterone 10 mg tablet 10 mg PO DAILY 02/03/23 07/02/23 Unknown History (Provera) Physical Exam 2 Vital Signs and Narrative: Vital Signs: Last Vital Signs Temp 97.5 F 01/08/24 13:14 Pulse 88 01/08/24 14:59 Resp 16 01/08/24 14:59 BP 133/64 01/08/24 14:59 Pulse Ox 92 01/08/24 14:59 O2 Del Method Nasal Cannula 01/08/24 14:59 O2 Flow Rate 3.5 01/08/24 14:59 Oxygen Flow Rate 6 01/08/24 13:14 BMI result Body Mass Index 33.2 Constitutional - Awake and Alert, No apparent distress Eyes - PERRLA, EOMI Cardiovascular - S1S2, RRR, No edema Respiratory - Normal lung expansion, Normal respiratory effort, No respiratory distress on 6 L, crackles bilaterally, diminished at the bases Gastrointestinal - NT / ND; +BS; No rebound or guarding Extremities - no calf tenderness bilaterally, no swelling Skin - Warm/Dry Neurological - Alert & oriented x3 Psychological - Appropriate affect Results Labs 01/08/24 13:47 01/08/24 13:47 Labs: Laboratory Results - last 24 hr 01/08/24 13:47 MCV 97.5 MCH 28.8 MCHC 29.5 L RDW 14.5 Plt Count 224 MPV 11.2 Immature Gran % (Auto) 0.4 Neut % (Auto) 82.1 H Lymph % (Auto) 7.8 L [place] % (Auto) 8.7 Eos % (Auto) 0.6 Baso % (Auto) 0.4 Lymph # (Auto) 0.7 L [place] # (Auto) 0.8 Eos # (Auto) 0.1 Baso # (Auto) 0.0 Abs Immat Gran (auto) 0.04 H Absolute Neuts (auto) 7.3 Absolute Nucleated RBC 0.000 Nucleated RBC % (auto) 0.0 PT 25.1 H INR 2.1 H Anion Gap 11 L Estim Creat Clear Calc 40.5 Estimated GFR > 60 Random Glucose 166 H Calcium 9.3 Magnesium 1.9 Total Bilirubin 1.1 H Direct Bilirubin 0.5 AST 20 ALT 12 Alkaline Phosphatase 72 Troponin I High Sens 7.9 B-Natriuretic Peptide 398 H Total Protein 7.4 Albumin 3.8 Influenza Type A (PCR) NEGATIVE Influenza Type B (PCR) NEGATIVE RSV RNA Qual (PCR) NEGATIVE SARS-CoV-2 RNA (RT-PCR) NEGATIVE Imaging Radiologist's Impressions: Impressions Chest X-Ray 01/08/24 13:41 IMPRESSION: Bilateral pleural effusion, cardiomegaly, postsurgical changes in the right lung. Assessment and Plan (1) CHF exacerbation: Status: Acute (2) Acute and chronic respiratory failure: Status: Acute Plan 88 year old female with persistent atrial fibrillation anticoagulated with Eliquis, heart failure reduced ejection fraction, oyl-gpvfisk-edhbngjdo type 2 diabetes, COPD, chronic hypoxemic respiratory failure on 2.5/3 L at baseline, history of breast cancer, history of lung cancer 2002 admitted for further management of acute CHF exacerbation. #acute exacerbation of heart failure reduced ejection fraction with acute on chronic hypoxemic respiratory failure -BNP 398, CXR with bilateral pleural effusions and cardiomegaly. Symptomatic with orthopnea, dyspnea on exertion -last echocardiogram 2018 shows EF 40-45% -40 mg IV Lasix daily -strict I&O -cardiac diet -update echocardiogram -continue isosorbide, metoprolol. Hold diltiazem -monitor on telemetry with continuous O2 -continue supplemental O2 to maintain oximetry around 90%, VBG pending -follow renal function/lytes # persistent atrial fibrillation-rate controlled -continue Eliquis for anticoagulation, metoprolol for rate control. Hold diltiazem # vih-tkfaros-pkekxzlzc type 2 diabetes -POC glucose, diabetic diet -Humalog on sliding scale # COPD -no acute exacerbation -continue maintenance inhalers, DuoNebs p.r.n. -VBG pending # chronic normocytic anemia -H/H baseline, above transfusion threshold DVT prophylaxis-Eliquis Full code Healthcare proxy-daughterJoan [phone] Patient requires inpatient stay at least 2 midnights for management of acute CHF exacerbation requiring IV diuresis due to significant volume overload resulting in acute on chronic hypoxemic respiratory failure and will require close monitoring of I/O and renal function/electrolyte levels with possible expert consultation Quality Stroke Does the patient have a stroke diagnosis?: No VTE Prior VTE?: No VTE Risk Level:: Medical - moderate - high VTE Device Contraindication: Treatment Not Indicated VTE Drug Contraindication: N/A - Med Ordered
--- NOTE | 2024-01-08 17:26 | PC.NURSE ---
VBG pH 7.59 criticial from lab, admitting provider ejffry made aware via ammy
[2024-01-08 17:27] LABS: VBG HCO3 39 mmol/L (22-26); VBG pCO2 40 mmHg; VBG pH 7.59 (7.32-7.43); VBG pO2 177 mmHg
[2024-01-08 17:30] LABS: Venous Blood Gas Refer to POC result
--- NOTE | 2024-01-08 17:39 | PHA.MEDREC ---
Addendum entered by Mai Fofana RPh 01/08/24 19:51: Med rec was reviewed. Original Note: Pharmacy Consult ? Medication Reconciliation Pharmacy has completed the medication reconciliation. Spoke to patient to confirm med list. Patient states she is not taking Medroxyprogesterone 10 mg daily.
[2024-01-08] MEDS: 0.9 % Sodium Chloride Flush 3 ML SYRINGE IVFLUSH ×2 (18:00→21:17)
[2024-01-08 18:04] LABS: Glucose, Whole Blood 139 mg/dL (60-115)
[2024-01-08] MEDS: Albuterol/Iprat 2.5/0.5MG 3 ML AMPUL.NEB INHALE (19:21)
[2024-01-08] MEDS: Apixaban 5 MG TABLET PO (21:17)
[2024-01-08] MEDS: Metoprolol Tartrate 50 MG TABLET PO (21:17)
[2024-01-08] MEDS: Ascorbic Acid 500 MG TABLET PO (21:17)
[2024-01-08 21:18] LABS: Glucose, Whole Blood 274 mg/dL (60-115)
[2024-01-08] MEDS: Potassium Chloride ER 20 MEQ TAB.ER.PRT PO (21:19)
[2024-01-09] VITALS (9 sets, daily range): BP systolic 142–164; BP diastolic 65–81; PULSE 83–116; RESP 16–20; TEMP 36.3–36.9; O2SAT 88–95
[2024-01-09 06:45] LABS: Basophils Percent Auto 0.1 % (0-2); Hematocrit 38.9 % (37.0-47.0); Hemoglobin 11.5 g/dl (12.0-16.0); Imm Gran Abs Auto 0.05 X10*3/uL (0.00-0.03); Imm Gran Pct Auto 0.6 % (0.0-0.4); Lymphocytes Absolute Auto 0.5 X10*3/uL (1.2-4.9); Lymphocytes Percent Auto 5.7 % (20-40); MANUAL DIFF FLAG SCAN; Mean Corpuscular HGB Conc 29.6 g/dl (31.0-35.0); Mean Corpuscular Hemoglobin 28.5 pg (27.0-33.0); Mean Corpuscular Volume 96.3 fL (80.0-98.0); Mean Platelet Volume 11.5 fL (9.4-12.3); Monocytes Absolute Auto 0.1 X10*3/uL (0.1-1.2); Neutrophils Absolute Auto 8.1 x10*3/uL (2.0-8.3); Neutrophils Percent Auto 92.6 % (45-73); Platelet Count 213 X10*3/uL (160-400); Red Blood Count 4.04 X10*6/uL (4.20-5.50); Red Cell Distribution Width 14.3 % (11.0-16.0); SCAN SMEAR FLAG 1; White Blood Count 8.7 X10*3/uL (4.8-10.8)
[2024-01-09 07:03] LABS: SLIDE REVIEW VERIFIED
[2024-01-09 07:15] LABS: Blood Urea Nitrogen 20 mg/dL (9-16); Calcium 9.7 mg/dL (8.4-10.2); Estimated Glomerular Filt Rate > 60; Glucose Random 168 mg/dL (60-115)
[2024-01-09 07:31] LABS: Anion Gap 14 (12-20); Carbon Dioxide 37 mmol/L (22-29); Chloride 98 mmol/L (96-108); Potassium 4.8 mmol/L (3.3-5.1); Sodium 144 mmol/L (135-145)
[2024-01-09 07:45] LABS: Glucose, Whole Blood 153 mg/dL (60-115)
[2024-01-09] MEDS: Albuterol/Iprat 2.5/0.5MG 3 ML AMPUL.NEB INHALE ×3 (07:46→15:22)
[2024-01-09] MEDS: 0.9 % Sodium Chloride Flush 3 ML SYRINGE IVFLUSH ×3 (09:17→20:36)
[2024-01-09] MEDS: Metoprolol Tartrate 50 MG TABLET PO ×2 (09:17→20:32)
[2024-01-09] MEDS: Apixaban 5 MG TABLET PO ×2 (09:17→20:32)
[2024-01-09] MEDS: Cholecalciferol (Vitamin D3) 25 MCG TABLET PO (09:17)
[2024-01-09] MEDS: Atorvastatin Calcium 20 MG TABLET PO (09:17)
[2024-01-09] MEDS: dilTIAZem HCL CD 120 MG CAP.ER.DEG PO (09:17)
[2024-01-09] MEDS: Furosemide 40 MG/4 ML VIAL IVPUSH (09:17)
[2024-01-09] MEDS: Isosorbide Mononitrate 30 MG TAB.ER.24H PO (09:17)
[2024-01-09] MEDS: Ascorbic Acid 500 MG TABLET PO ×2 (09:17→20:32)
[2024-01-09] MEDS: Cyanocobalamin (Vitamin B-12) 1,000 MCG TABLET 1000 MCG PO (09:17)
--- NOTE | 2024-01-09 09:57 | MHC.CM.PN ---
IMM 01/09/24, Pt. lives with her daughter, who helps her with cooking and catering chef. She uses a cane and a rollator walker. She has O2 from [employer]. HCP is her daughter Joan, new form to be completed and added to chart. Dtr to transport home at DC. DCP: home, self care. CM to follow and assist with DC plan.
--- NOTE | 2024-01-09 11:00 | CA_ITS ---
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 Low normal LV ejection fraction 50-55% with mild left ventricular hypertrophy 2. Biatrial enlargement, right greater than left 3. Severely reduced RV systolic function 4. Igwk-pv-[id number] aortic stenosis noted 5. Moderately elevated right ventricular systolic pressure with mildly elevated right atrial pressures 6. Trivial pericardial effusion. Findings Left Ventricle Normal left ventricular cavity size. There is mildly increased left ventricular wall thickness. The left ventricular systolic function is low normal. The visually estimated ejection fraction is between 50-55%. Diastolic function is indeterminate on the basis of available data. Right Ventricle Mildly increased right ventricular cavity size. There is severely decreased right ventricular systolic function. Atria The left atrium is moderately dilated. Interatrial shunt cannot be excluded. The right atrium is severely dilated. Aortic Valve There is mild calcification of the aortic valve. There is mild thickening of the aortic valve. There is mild to moderate aortic valve stenosis. The peak aortic gradient is 20 mmHg.The mean gradient is 10 mmHg. The aortic valve area is 1.31 cm2. There is no aortic valve regurgitation. Mitral Valve There is mild anterior and posterior mitral leaflet thickening. There is mild mitral annular calcification. There is mild mitral valve regurgitation. There is no mitral valve stenosis. Pulmonic Valve The pulmonic valve is likely normal. Tricuspid Valve Normal tricuspid valve structure. There is mild tricuspid valve regurgitation. Mildly elevated right atrial pressure. Moderate pulmonary hypertension is present. Great Vessels The pulmonary artery was not well visualized. There is no dilatation of the ascending aorta measuring 3.30 cm. Venous The inferior vena cava is mildly dilated and collapses less than 50% with inspiration. Pericardium/Pleural There is a trivial circumferential pericardial effusion. Prior Study Comparison Changes noted compared to prior study dated: 05/04/2018. LV systolic function is marginally reduced in the low normal range now. Mild-to moderate aortic stenosis is noted Measurements 2D Linear Measurements IVSd: 1.15 0.6-0.9/0.6-1.0 cm LVIDd: 3.60 3.9-5.3/4.2-5.9 cm LVIDd Index: 2.05 2.4-3.2/2.2-3.1 cm/m2 LVIDs: 2.39 2.0-3.6 cm LVPWd: 1.41 0.7-1.1 cm LA Diam: 4.50 2.7-3.8/3.0-4.0 cm LAIDs Index: 2.56 1.5-2.3 cm/m2 LV Mass: 194.57 67-162/88-224 g LV Mass Index: 110.55 43-95/49-115 g/m2 LVOT Diam: 2.00 3.0+(-)1.3 cm 2D Systolic Function EF 4C: 56.20 >55% EF 2C: 48.40 >55% EF BiP: 52.20 >55% Aortic Valve AoV Pk Alexis: 2.21 AoV Mn Alexis: 1.48 AoV VTI: 0.39 AoV Pk Grad: 20.00 Aov Mn Grad: 10.00 JERSON Cont.VTI: 1.31 LVOT LVOT Pk Alexis: 0.89 LVOT Mn Alexis: 0.61 LVOT VTI: 0.16 LVOT Pk Grad: 3.00 LVOT Mn Grad: 2.00 LVOT Diam: 2.00 LVOT Area: 3.14 Right Ventricle TAPSE (mm): 9.70 TVS' Alexis: 8.80 Tricuspid Valve TR Pk Alexis: 3.35 TR Pk Grad: 45.00 RA Press: 8.00 RVSP: 53.00 Great Vessels Aorta Sinus of Valsalva: 3.00 2.0-3.5 cm Ao Asc: 3.30 2.1-3.4 cm Pulmonary Valve PV Pk Alexis: 0.97 Peak PV Grad: 4.00 Updated in Other Vendor System with Status of Final Jose Gomez MD electronically signed on 01/09/2024 1:58:31 PM with status of Final
[2024-01-09] MEDS: Fluticasone/Umeclidinium/Vilanterol 100/62.5/25 BLST.W.DEV 1 PUFF INHALE (11:34)
[2024-01-09 11:45] LABS: Glucose, Whole Blood 257 mg/dL (60-115)
--- NOTE | 2024-01-09 12:21 | PC.NURSE ---
Pt is refusing insulin, MD Contreras is aware.
--- NOTE | 2024-01-09 14:21 | P.PNIM_ITS ---
Subjective Subjective Date of Service: 01/09/24 Interval History: copd excerebatio Review of Systems sob somewhat improving diursing well as per patient need close i/o monitering Physical Exam 2 Vital Signs: Vital Signs: Last Vital Signs Temp 97.4 F 01/09/24 11:33 Pulse 116 H 01/09/24 11:33 Resp 17 01/09/24 11:33 BP 143/72 H 01/09/24 11:33 Pulse Ox 91 L 01/09/24 11:33 O2 Del Method Nasal Cannula 01/09/24 11:33 O2 Flow Rate 3 01/09/24 11:33 Oxygen Flow Rate 6 01/08/24 13:14 BMI result Body Mass Index 33.9 Appearance: Alert.? Oriented X3.? cvs: rrr, [id number] , no murmur res: air entry fair ,has few scattered rales at bases. abd: no rebound or guarding ,nt, bs present. ext pulses present , no cyanosis , 2+edema. neuro: axo3 , nonfocal. Objective Data Active Medications Acetaminophen (Acetaminophen 325 Mg Tablet) 650 mg PO Q6H PRN PRN Reason: Pain, Mild (Pain Scale 1-3), fever or headache Albuterol Sulfate (Albuterol Sulfate 90 Mcg 8 Gm Inhaler) 2 puff INHALE Q6H PRN PRN Reason: for wheezing Albuterol/Ipratropium (Albuterol/Iprat 2.5/0.5mg 3 Ml Ampul.Neb) 3 ml INHALE RQ4H WHILE AWAKE PRN PRN Reason: Shortness of Breath/Wheezing Albuterol/Ipratropium (Albuterol/Iprat 2.5/0.5mg 3 Ml Ampul.Neb) 3 ml INHALE RQ4H WHILE AWAKE [facility] Last Admin: 01/09/24 11:19 Dose: 3 ml Documented By: MITALI Apixaban (Apixaban 5 Mg Tablet) 5 mg PO BID [facility] Last Admin: 01/09/24 09:17 Dose: 5 mg Documented By: MILTON Ascorbic Acid (Ascorbic Acid 500 Mg Tablet) 500 mg PO BID [facility] Last Admin: 01/09/24 09:17 Dose: 500 mg Documented By: MILTON Atorvastatin Calcium (Atorvastatin Calcium 20 Mg Tablet) 20 mg PO DAILY [facility] Last Admin: 01/09/24 09:17 Dose: 20 mg Documented By: MILTON Calcium Carbonate (Calcium Carbonate 750 Mg Tab.Chew) 750 mg PO Q4H PRN PRN Reason: Heartburn Cyanocobalamin (Cyanocobalamin (Vitamin B-12) 1,000 Mcg Tablet) 1,000 mcg PO DAILY [facility] Last Admin: 01/09/24 09:17 Dose: 1,000 mcg Documented By: MILTON Diltiazem HCl (Diltiazem Hcl Cd 120 Mg Cap.Er.Deg) 120 mg PO DAILY [facility]; Protocol Last Admin: 01/09/24 09:17 Dose: 120 mg Documented By: MILTON Fluticasone Propionate (Fluticasone Propionate Nasal 16 Gm [place]) 1 spray NOSTRIL-B DAILY PRN PRN Reason: Allergy Symptoms Fluticasone/Umeclidinium/Vilanterol (Fluticasone/Umeclidinium/Vilanterol 100/62.5/25 Blst.W.Dev) 1 puff INHALE RDAILY [facility] Last Admin: 01/09/24 11:34 Dose: 1 puff Documented By: MITALI Furosemide (Furosemide 40 Mg/4 Ml Vial) 40 mg IVPUSH DAILY [facility]; Protocol Last Admin: 01/09/24 09:17 Dose: 40 mg Documented By: MILTON Glucose (Glucose Gel 15 Gm Gel..Gram.) 15 gm PO Q15M PRN; Protocol PRN Reason: per Hypoglycemia Standing Ord. Dextrose (D10) 250 mls @ 750 mls/hr IV Q15M PRN; Protocol PRN Reason: per Hypoglycemia Standing Ord. Insulin Human Lispro (Insulin Lispro 100 Unit/Ml 3 Ml Vial) 0 unit SUBCUT QIDACHS [facility]; Protocol Last Admin: 01/09/24 12:01 Dose: Not Given Documented By: ERVIN Non-Admin Reason: Patient Refused Isosorbide Mononitrate (Isosorbide Mononitrate 30 Mg Tab.Er.24h) 30 mg PO DAILY [facility]; Protocol Last Admin: 01/09/24 09:17 Dose: 30 mg Documented By: MILTON Magnesium Hydroxide (Milk Of Magnesia 30 Ml Oral.Susp) 30 ml PO DAILY PRN PRN Reason: Constipation Melatonin (Melatonin 3 Mg Tablet) 6 mg PO BEDTIME PRN PRN Reason: Insomnia Metoprolol Tartrate (Metoprolol Tartrate 50 Mg Tablet) 50 mg PO BID [facility]; Protocol Last Admin: 01/09/24 09:17 Dose: 50 mg Documented By: MILTON Potassium Chloride (Potassium Chloride Er 20 Meq Tab.Er.Prt) 20 meq PO Q48H [facility] Last Admin: 01/08/24 21:19 Dose: 20 meq Documented By: LILLIAM Comments: pt was not on unit until 2039 Sodium Chloride (0.9 % Sodium Chloride Flush 3 Ml Syringe) 3 ml IVFLUSH QSHIFT [facility] Last Admin: 01/09/24 09:17 Dose: 3 ml Documented By: MILTON Vitamin D (Cholecalciferol (Vitamin D3) 25 Mcg Tablet) 25 mcg PO DAILY [facility] Last Admin: 01/09/24 09:17 Dose: 25 mcg Documented By: MILTON Labs 01/09/24 06:33 01/09/24 06:33 Labs: Laboratory Results - last 24 hr 01/08/24 01/08/24 01/08/24 13:47 17:16 17:58 MCV MCH MCHC RDW Plt Count MPV Immature Gran % (Auto) Neut % (Auto) Lymph % (Auto) [place] % (Auto) Eos % (Auto) Baso % (Auto) Lymph # (Auto) [place] # (Auto) Eos # (Auto) Baso # (Auto) Abs Immat Gran (auto) Absolute Neuts (auto) Absolute Nucleated RBC Nucleated RBC % (auto) Smear Tech's Comments VBG pH 7.59 H VBG pCO2 40 VBG pO2 177 VBG HCO3 39 H VBG O2 Saturation 100.0 VBG Base Excess 16.0 Anion Gap 11 L Estim Creat Clear Calc 40.5 Estimated GFR > 60 POC Glucose 139 H Random Glucose 166 H Calcium 9.3 Magnesium 1.9 Total Bilirubin 1.1 H Direct Bilirubin 0.5 AST 20 ALT 12 Alkaline Phosphatase 72 Troponin I High Sens 7.9 B-Natriuretic Peptide 398 H Total Protein 7.4 Albumin 3.8 Influenza Type A (PCR) NEGATIVE Influenza Type B (PCR) NEGATIVE RSV RNA Qual (PCR) NEGATIVE SARS-CoV-2 RNA (RT-PCR) NEGATIVE 01/08/24 01/09/24 01/09/24 21:15 06:33 07:40 MCV 96.3 MCH 28.5 MCHC 29.6 L RDW 14.3 Plt Count 213 MPV 11.5 Immature Gran % (Auto) 0.6 H Neut % (Auto) 92.6 H Lymph % (Auto) 5.7 L [place] % (Auto) 1.0 L Eos % (Auto) 0.0 Baso % (Auto) 0.1 Lymph # (Auto) 0.5 L [place] # (Auto) 0.1 Eos # (Auto) 0.0 Baso # (Auto) 0.0 Abs Immat Gran (auto) 0.05 H Absolute Neuts (auto) 8.1 Absolute Nucleated RBC 0.000 Nucleated RBC % (auto) 0.0 Smear Tech's Comments VERIFIED VBG pH VBG pCO2 VBG pO2 VBG HCO3 VBG O2 Saturation VBG Base Excess Anion Gap 14 Estim Creat Clear Calc 41.0 Estimated GFR > 60 POC Glucose 274 H 153 H Random Glucose 168 H Calcium 9.7 Magnesium Total Bilirubin Direct Bilirubin AST ALT Alkaline Phosphatase Troponin I High Sens B-Natriuretic Peptide Total Protein Albumin Influenza Type A (PCR) Influenza Type B (PCR) RSV RNA Qual (PCR) SARS-CoV-2 RNA (RT-PCR) 01/09/24 11:39 MCV MCH MCHC RDW Plt Count MPV Immature Gran % (Auto) Neut % (Auto) Lymph % (Auto) [place] % (Auto) Eos % (Auto) Baso % (Auto) Lymph # (Auto) [place] # (Auto) Eos # (Auto) Baso # (Auto) Abs Immat Gran (auto) Absolute Neuts (auto) Absolute Nucleated RBC Nucleated RBC % (auto) Smear Tech's Comments VBG pH VBG pCO2 VBG pO2 VBG HCO3 VBG O2 Saturation VBG Base Excess Anion Gap Estim Creat Clear Calc Estimated GFR POC Glucose 257 H Random Glucose Calcium Magnesium Total Bilirubin Direct Bilirubin AST ALT Alkaline Phosphatase Troponin I High Sens B-Natriuretic Peptide Total Protein Albumin Influenza Type A (PCR) Influenza Type B (PCR) RSV RNA Qual (PCR) SARS-CoV-2 RNA (RT-PCR) Assessment and Plan (1) Acute and chronic respiratory failure: Status: Acute Assessment and Plan: 88 year old female with persistent atrial fibrillation anticoagulated with Eliquis, heart failure reduced ejection fraction, [id number] type 2 diabetes, COPD, chronic hypoxemic respiratory failure on 2.5/3 L at baseline, history of breast cancer, history of lung cancer 2002 admitted for further management of acute CHF exacerbation. acute exacerbation of heart failure reduced ejection fraction with acute on chronic hypoxemic respiratory failure -BNP 398, CXR with bilateral pleural effusions and cardiomegaly. Symptomatic with orthopnea, dyspnea on exertion -last echocardiogram 2018 shows EF 40-45% still symtomatic plan; strict I&O, echocardiogram -continue isosorbide, metoprolol,40 mg IV Lasix daily -monitor on telemetry with continuous O2 -continue supplemental O2 to maintain oximetry around 90%, VBG pending -follow renal function/lytes persistent atrial fibrillation-rate controlled -continue Eliquis for anticoagulation, metoprolol for rate control. Hold diltiazem [id number] type 2 diabetes -POC glucose, diabetic diet -Humalog on sliding scale COPD -no acute exacerbation -continue maintenance inhalers, DuoNebs p.r.n. -VBG pending chronic normocytic anemia -H/H baseline, above transfusion threshold DVT prophylaxis-Eliquis Full code Healthcare proxy-daughterJoan [phone] Patient requires inpatient stay: for management of acute CHF exacerbation requiring IV diuresis due to significant volume overload resulting in acute on chronic hypoxemic respiratory failure and will require close monitoring of I/O and renal function/electrolyte levels with possible expert consultation Quality Stroke Does the patient have a stroke diagnosis?: No VTE Prior VTE?: No VTE Risk Level:: Medical - moderate - high VTE Device Contraindication: Treatment Not Indicated VTE Drug Contraindication: N/A - Med Ordered
[2024-01-09 16:24] LABS: Glucose, Whole Blood 142 mg/dL (60-115)
[2024-01-09] MEDS: Throat Lozenge, Medicated LOZENGE 1 LOZENGE MUCOUS MEM (17:45)
[2024-01-09] MEDS: Metoprolol Tartrate 5 MG/5 ML VIAL IVPUSH (18:25)
[2024-01-09] MEDS: levalbuterol HCL 1.25 MG, Ipratropium Bromide 0.5 MG INHALE (19:41)
[2024-01-09 20:33] LABS: Glucose, Whole Blood 181 mg/dL (60-115)
[2024-01-10] VITALS (16 sets, daily range): BP systolic 118–155; BP diastolic 51–81; PULSE 80–114; RESP 16–20; TEMP 36.4–37.4; O2SAT 7–99
[2024-01-10 07:20] LABS: Glucose, Whole Blood 130 mg/dL (60-115)
[2024-01-10] MEDS: levalbuterol HCL 1.25 MG, Ipratropium Bromide 0.5 MG INHALE ×4 (07:23→19:36)
[2024-01-10] MEDS: Fluticasone/Umeclidinium/Vilanterol 100/62.5/25 BLST.W.DEV 1 PUFF INHALE (07:27)
[2024-01-10] MEDS: Furosemide 40 MG/4 ML VIAL IVPUSH (07:44)
[2024-01-10] MEDS: Metoprolol Tartrate 50 MG TABLET PO ×2 (07:45→20:16)
[2024-01-10] MEDS: Cholecalciferol (Vitamin D3) 25 MCG TABLET PO (07:45)
[2024-01-10] MEDS: Atorvastatin Calcium 20 MG TABLET PO (07:45)
[2024-01-10] MEDS: Apixaban 5 MG TABLET PO ×2 (07:45→20:17)
[2024-01-10] MEDS: Cyanocobalamin (Vitamin B-12) 1,000 MCG TABLET 1000 MCG PO (07:45)
[2024-01-10] MEDS: dilTIAZem HCL CD 120 MG CAP.ER.DEG PO (07:45)
[2024-01-10] MEDS: Isosorbide Mononitrate 30 MG TAB.ER.24H PO (07:45)
[2024-01-10] MEDS: 0.9 % Sodium Chloride Flush 3 ML SYRINGE IVFLUSH ×2 (07:45→16:52)
[2024-01-10] MEDS: Ascorbic Acid 500 MG TABLET PO ×2 (07:45→20:16)
[2024-01-10] MEDS: Milk of Magnesia 30 ML ORAL.SUSP PO (07:52)
--- NOTE | 2024-01-10 08:05 | PC.NURSE ---
[id number] 01/08-01/10/24 Pt on 2-3 liters of oxygen via NC at home. During the night patient pt changed to face mask as O@ sats dropped 86-88% with observing patient mouth breathing. O2 sats improved to 95%. O2 decreased from 4liters to 2liters Face mask. Throughout night patient would drop O2 sats with good waveform to 82% but then within seconds spontaneously improve to 92-94%. Patient pink MM, Pt easily arousable, denies SOB or respiratory difficulties. Respiratory therapist called 4am, came to bedside and placed patient on 5Liters via face mask. O2 sats maintained 89-95% remainder of shift.
[2024-01-10 09:14] LABS: Anion Gap 10 (12-20); B Type Natriuretic Peptide 442 pg/mL (<100); Blood Urea Nitrogen 31 mg/dL (9-16); Calcium 9.4 mg/dL (8.4-10.2); Chloride 93 mmol/L (96-108); Creatinine Clr Calc Pharmacy 35.7; Estimated Glomerular Filt Rate 52; Glucose Random 138 mg/dL (60-115); Potassium 4.1 mmol/L (3.3-5.1); Sodium 144 mmol/L (135-145)
[2024-01-10 09:22] LABS: Carbon Dioxide 45 mmol/L (22-29)
[2024-01-10] MEDS: acetaZOLAMIDE 250 MG TABLET PO (09:24)
[2024-01-10] MEDS: dilTIAZem HCL 60 MG TABLET PO (09:24)
[2024-01-10 11:03] LABS: Glucose, Whole Blood 148 mg/dL (60-115)
--- NOTE | 2024-01-10 11:48 | HO.PM.IMPN ---
Subjective Subjective Date of Service: 01/10/24 Interval History: chf , afib with rvr Review of Systems tachycardia might be due to sob-seems improving has excersional sob i/o 900 ml neg Physical Exam Vital Signs: Vital Signs: Last Vital Signs Temp 99.4 F 01/10/24 10:46 Pulse 94 01/10/24 11:47 Resp 16 01/10/24 11:47 BP 118/65 01/10/24 10:46 Pulse Ox 95 01/10/24 10:46 O2 Del Method Nasal Cannula 01/10/24 10:46 O2 Flow Rate 5 01/10/24 10:46 Oxygen Flow Rate 6 01/08/24 13:14 BMI result Body Mass Index 33.9 Appearance: Alert.? Oriented X3.? cvs: rrr, [id number] . res: air entry fair ,has few scattered rales at bases. abd: no rebound or guarding ,nt, bs present. ext pulses present , no cyanosis , 1+edema. neuro: axo3 , nonfocal. Objective Data Active Medications Acetaminophen (Acetaminophen 325 Mg Tablet) 650 mg PO Q6H PRN PRN Reason: Pain, Mild (Pain Scale 1-3), fever or headache Albuterol Sulfate (Albuterol Sulfate 90 Mcg 8 Gm Inhaler) 2 puff INHALE Q6H PRN PRN Reason: for wheezing Albuterol/Ipratropium (Albuterol/Iprat 2.5/0.5mg 3 Ml Ampul.Neb) 3 ml INHALE RQ4H WHILE AWAKE PRN PRN Reason: Shortness of Breath/Wheezing Apixaban (Apixaban 5 Mg Tablet) 5 mg PO BID [facility] Last Admin: 01/10/24 07:45 Dose: 5 mg Documented By: CHERYLE Ascorbic Acid (Ascorbic Acid 500 Mg Tablet) 500 mg PO BID [facility] Last Admin: 01/10/24 07:45 Dose: 500 mg Documented By: CHERYLE Atorvastatin Calcium (Atorvastatin Calcium 20 Mg Tablet) 20 mg PO DAILY [facility] Last Admin: 01/10/24 07:45 Dose: 20 mg Documented By: CHERYLE Benzocaine (Throat Lozenge, Medicated Lozenge) 1 lozenge MUCOUS MEM Q2H PRN PRN Reason: Sore Throat Last Admin: 01/09/24 17:45 Dose: 1 lozenge Documented By: ERVIN Calcium Carbonate (Calcium Carbonate 750 Mg Tab.Chew) 750 mg PO Q4H PRN PRN Reason: Heartburn Levalbuterol HCl 1.25 mg/ (Ipratropium [place] 0.5 mg) 0 mg INHALE RQID [facility] Last Admin: 01/10/24 11:46 Dose: 3 dose Documented By: MITALI Cyanocobalamin (Cyanocobalamin (Vitamin B-12) 1,000 Mcg Tablet) 1,000 mcg PO DAILY [facility] Last Admin: 01/10/24 07:45 Dose: 1,000 mcg Documented By: CHERYLE Diltiazem HCl (Diltiazem Hcl Cd 180 Mg Cap.Er.24h) 180 mg PO DAILY [facility]; Protocol Last Admin: 01/10/24 09:04 Dose: Not Given Documented By: CHERYLE Non-Admin Reason: gaveAM dose - Md ordering 60mg Fluticasone Propionate (Fluticasone Propionate Nasal 16 Gm [place]) 1 spray NOSTRIL-B DAILY PRN PRN Reason: Allergy Symptoms Fluticasone/Umeclidinium/Vilanterol (Fluticasone/Umeclidinium/Vilanterol 100/62.5/25 Blst.W.Dev) 1 puff INHALE RDAILY [facility] Last Admin: 01/10/24 07:27 Dose: 1 puff Documented By: MITALI Furosemide (Furosemide 40 Mg/4 Ml Vial) 40 mg IVPUSH DAILY [facility]; Protocol Last Admin: 01/10/24 07:44 Dose: 40 mg Documented By: CHERYLE Glucose (Glucose Gel 15 Gm Gel..Gram.) 15 gm PO Q15M PRN; Protocol PRN Reason: per Hypoglycemia Standing Ord. Dextrose (D10) 250 mls @ 750 mls/hr IV Q15M PRN; Protocol PRN Reason: per Hypoglycemia Standing Ord. Insulin Human Lispro (Insulin Lispro 100 Unit/Ml 3 Ml Vial) 0 unit SUBCUT QIDACHS [facility]; Protocol Last Admin: 01/10/24 11:37 Dose: Not Given Documented By: CHERYLE Non-Admin Reason: No Insulin Coverage Isosorbide Mononitrate (Isosorbide Mononitrate 30 Mg Tab.Er.24h) 30 mg PO DAILY [facility]; Protocol Last Admin: 01/10/24 07:45 Dose: 30 mg Documented By: CHERYLE Magnesium Hydroxide (Milk Of Magnesia 30 Ml Oral.Susp) 30 ml PO DAILY PRN PRN Reason: Constipation Last Admin: 01/10/24 07:52 Dose: 30 ml Documented By: CHERYLE Melatonin (Melatonin 3 Mg Tablet) 6 mg PO BEDTIME PRN PRN Reason: Insomnia Metoprolol Tartrate (Metoprolol Tartrate 50 Mg Tablet) 50 mg PO BID [facility]; Protocol Last Admin: 01/10/24 07:45 Dose: 50 mg Documented By: CHERYLE Potassium Chloride (Potassium Chloride Er 20 Meq Tab.Er.Prt) 20 meq PO Q48H [facility] Last Admin: 01/08/24 21:19 Dose: 20 meq Documented By: LILLIAM Comments: pt was not on unit until 2039 Sodium Chloride (0.9 % Sodium Chloride Flush 3 Ml Syringe) 3 ml IVFLUSH QSHIFT [facility] Last Admin: 01/10/24 07:45 Dose: 3 ml Documented By: CHERYLE Vitamin D (Cholecalciferol (Vitamin D3) 25 Mcg Tablet) 25 mcg PO DAILY [facility] Last Admin: 01/10/24 07:45 Dose: 25 mcg Documented By: CHERYLE Labs 01/09/24 06:33 01/10/24 08:44 Labs: Laboratory Results - last 24 hr 01/09/24 01/09/24 01/10/24 16:14 20:29 07:14 Anion Gap Estim Creat Clear Calc Estimated GFR POC Glucose 142 H 181 H 130 H Random Glucose Calcium B-Natriuretic Peptide 01/10/24 01/10/24 08:44 10:45 Anion Gap 10 L Estim Creat Clear Calc 35.7 Estimated GFR 52 POC Glucose 148 H Random Glucose 138 H Calcium 9.4 B-Natriuretic Peptide 442 H Assessment and Plan (1) Acute and chronic respiratory failure: Status: Acute Assessment and Plan: 88 year old female with persistent atrial fibrillation anticoagulated with Eliquis, heart failure reduced ejection fraction, [id number]-sawocjkgw type 2 diabetes, COPD, chronic hypoxemic respiratory failure on 2.5/3 L at baseline, history of breast cancer, history of lung cancer 2001 admitted for further management of acute CHF exacerbation. acute exacerbation of heart failure reduced ejection fraction with acute on chronic hypoxemic respiratory failure -BNP 398, CXR with bilateral pleural effusions and cardiomegaly. Symptomatic with orthopnea, dyspnea on exertion -last echocardiogram 2019 shows EF 40-45% still symtomatic VBG noted -ph 7.59/40/177 plan; strict I&O -900 ml neg,bnp slightly up echocardiogram: Low normal LV ejection fraction 50-55% with mild left ventricular hypertrophy need better control afib with rvr also. continue isosorbide, metoprolol, 40 mg IV Lasix daily,cardizem 180 mg po daily,monitor on telemetry with continuous O2,continue supplemental O2 to maintain oximetry around 90% follow renal function/lytes added cardio eval persistent atrial fibrillation-rate controlled -continue Eliquis for anticoagulation, metoprolol for rate control,adjusted diltiazem. [id number]-frfyhsngt type 2 diabetes -POC glucose, diabetic diet -Humalog on sliding scale COPD -no acute exacerbation -continue maintenance inhalers, DuoNebs p.r.n. chronic normocytic anemia -H/H baseline, above transfusion threshold DVT prophylaxis-Eliquis Full code Healthcare proxy-daughterJoan [phone] Patient requires inpatient stay: for management of acute CHF exacerbation requiring IV diuresis due to significant volume overload resulting in acute on chronic hypoxemic respiratory failure and will require close monitoring of I/O and renal function/electrolyte levels with possible expert consultation Quality Stroke Does the patient have a stroke diagnosis?: No VTE Prior VTE?: No VTE Risk Level:: Medical - moderate - high VTE Device Contraindication: Treatment Not Indicated VTE Drug Contraindication: N/A - Med Ordered
[2024-01-10 15:33] LABS: Glucose, Whole Blood 109 mg/dL (60-115)
[2024-01-10 19:48] LABS: Glucose, Whole Blood 170 mg/dL (60-115)
[2024-01-10] MEDS: Insulin Lispro 100 UNIT/ML 3 ML VIAL SUBCUT (20:16)
[2024-01-10] MEDS: Potassium Chloride ER 20 MEQ TAB.ER.PRT PO (20:17)
[2024-01-11] VITALS (13 sets, daily range): BP systolic 119–150; BP diastolic 57–71; PULSE 82–132; RESP 17–26; TEMP 36.2–36.9; O2SAT 92–98
[2024-01-11] MEDS: 0.9 % Sodium Chloride Flush 3 ML SYRINGE IVFLUSH ×3 (02:21→15:20)
--- NOTE | 2024-01-11 02:24 | PM.EVENT ---
Event Note Date of Service: 01/11/24 Event Note: AF with RVR while asleep, HR sustained in 130s to 140s, IV metorpolol 5 x 1, if persists might need a drip Time Spent With Patient Time: Total time managing care of this patient today ____ minutes.
[2024-01-11] MEDS: dilTIAZem HCL 50 MG/10 ML VIAL 10 MG IVPUSH (02:50)
[2024-01-11] MEDS: Metoprolol Tartrate 5 MG/5 ML VIAL IVPUSH (04:06)
--- NOTE | 2024-01-11 07:04 | PC.NURSE ---
Afib RVR with HR sustaining at 127 [address] Mario Watson make aware. Dr Martin place order for Cardizem 10mg iv., same administered as ordered.HR decreased to 122- 127. Dr Martin informed again and he place order for metoprolol 5mg iv which was administered at 0406.HR decreased to 82. Still in afib.Patient asymptomatic.
[2024-01-11] MEDS: Fluticasone/Umeclidinium/Vilanterol 100/62.5/25 BLST.W.DEV 1 PUFF INHALE (07:58)
[2024-01-11] MEDS: levalbuterol HCL 1.25 MG, Ipratropium Bromide 0.5 MG INHALE ×3 (07:58→15:14)
[2024-01-11] MEDS: Atorvastatin Calcium 20 MG TABLET PO (09:14)
[2024-01-11] MEDS: Ascorbic Acid 500 MG TABLET PO ×2 (09:14→22:45)
[2024-01-11] MEDS: Cholecalciferol (Vitamin D3) 25 MCG TABLET PO (09:14)
[2024-01-11] MEDS: Isosorbide Mononitrate 30 MG TAB.ER.24H PO (09:14)
[2024-01-11] MEDS: Apixaban 5 MG TABLET PO ×2 (09:14→22:42)
[2024-01-11] MEDS: Metoprolol Tartrate 50 MG TABLET PO ×2 (09:14→22:42)
[2024-01-11] MEDS: Milk of Magnesia 30 ML ORAL.SUSP PO (09:15)
[2024-01-11] MEDS: Cyanocobalamin (Vitamin B-12) 1,000 MCG TABLET 1000 MCG PO (09:15)
[2024-01-11] MEDS: dilTIAZem HCL CD 180 MG CAP.ER.24H PO (09:15)
--- NOTE | 2024-01-11 09:26 | PM.CNPUL ---
History of Present Illness History of Present Illness Consult date: 01/11/24 Requesting physician: Marty Contreras Chief complaint: chf exacerbation acute on chronic hypoxia Narrative: This 88 years old female, is admitted with increased shortness of breath and general weakness which has been gradually worsening over the last few weeks. Had gained about 5 lb of weight in 4 days prior to admission. She had developed moderate orthopnea. She had no fever or chills and no chest pain. She did have moderate cough but was not able to bring up any phlegm . She complained of nonspecific chest pressure but no radiating pain.. Patient does have past history of chronic obstructive pulmonary disease, and respiratory failure with hypoxemia She has been treated with Trelegy Ellipta 1 inhalation daily. Albuterol p.r.n., and since early this year she has also been started on oxygen 2 L/minute at rest and 3 L/minute on walking around. For her chronic obstructive pulmonary disease she is being followed by Dr. Akers, but last visit in the office was more than 6 months ago. Patient has past history of coronary artery disease, atrial fibrillation, congestive heart failure, she is on anticoagulation with Eliquis, Patient also has diabetes mellitus. Past history of breast cancer. Past history of lung cancer treated with right upper lobectomy in 2001 . [facility] reviewed . Review of Systems Review of Systems: Yes Other (Generalized weakness, shortness of breath, mild swelling of the ankles.) [facility] Past Medical History Medical History History of cancer of upper lobe bronchus or lung Age-related osteoporosis without current pathological fracture History of right breast cancer Mesenteric ischemia Diverticular disease Atrial fibrillation Congestive heart failure Degenerative disc disease Coronary artery disease Obesity (BMI 30-39.9) Peripheral vascular disease Hypercholesterolemia TIA (transient ischemic attack) Anemia Breast cancer Small cell lung cancer, right lower lobe HTN (hypertension) COPD (chronic obstructive pulmonary disease) Family History Family History Father Heart disease Mother Heart disease Brother Multiple myeloma Brother Lung cancer Surgical History Surgical History History of lumpectomy of right breast H/O resection of small bowel Social History Social History Household Members: Family Housing: Apartment Are you a primary rn care transition to a significant other at home: No Do you presently have visiting nurse or other home services: No Alcohol intake: never Patient Tobacco Use Status: Former Tobacco user Tobacco use type: Cigarette e-Cigarette/Vaping Use: Never Used Second Hand Smoke Exposure: No Advance Directives Date on File: 01/08/24 service: No Current occupational status: retired Current occupational exposures/hazards: No Cognitive needs: Yes (walker) Hearing needs: Yes Vision needs: Yes (glasses) Meds Allergies Allergy/AdvReac Type Severity Reaction Status Date / Time ADONIS Inhibitors Allergy Severe ANGIOEDEMA Verified 01/08/24 13:18 [Adonis Inhibitors] Sulfa (Sulfonamide Allergy Intermediate CHILLS Verified 01/08/24 13:18 Antibiotics) [Sulfa (Sulfonamides)] Active Medications: Current Medications Acetaminophen (Acetaminophen 325 Mg Tablet) 650 mg PO Q6H PRN PRN Reason: Pain, Mild (Pain Scale 1-3), fever or headache Albuterol Sulfate (Albuterol Sulfate 90 Mcg 8 Gm Inhaler) 2 puff INHALE Q6H PRN PRN Reason: for wheezing Albuterol/Ipratropium (Albuterol/Iprat 2.5/0.5mg 3 Ml Ampul.Neb) 3 ml INHALE RQ4H WHILE AWAKE PRN PRN Reason: Shortness of Breath/Wheezing Apixaban (Apixaban 5 Mg Tablet) 5 mg PO BID [facility] Last Admin: 01/11/24 09:14 Dose: 5 mg Ascorbic Acid (Ascorbic Acid 500 Mg Tablet) 500 mg PO BID [facility] Last Admin: 01/11/24 09:14 Dose: 500 mg Atorvastatin Calcium (Atorvastatin Calcium 20 Mg Tablet) 20 mg PO DAILY [facility] Last Admin: 01/11/24 09:14 Dose: 20 mg Benzocaine (Throat Lozenge, Medicated Lozenge) 1 lozenge MUCOUS MEM Q2H PRN PRN Reason: Sore Throat Last Admin: 01/09/24 17:45 Dose: 1 lozenge Calcium Carbonate (Calcium Carbonate 750 Mg Tab.Chew) 750 mg PO Q4H PRN PRN Reason: Heartburn Levalbuterol HCl 1.25 mg/ (Ipratropium [place] 0.5 mg) 0 mg INHALE RQID [facility] Last Admin: 01/11/24 07:58 Dose: 1 dose Cyanocobalamin (Cyanocobalamin (Vitamin B-12) 1,000 Mcg Tablet) 1,000 mcg PO DAILY [facility] Last Admin: 01/11/24 09:15 Dose: 1,000 mcg Diltiazem HCl (Diltiazem Hcl Cd 180 Mg Cap.Er.24h) 180 mg PO DAILY [facility]; Protocol Last Admin: 01/11/24 09:15 Dose: 180 mg Fluticasone Propionate (Fluticasone Propionate Nasal 16 Gm [place]) 1 spray NOSTRIL-B DAILY PRN PRN Reason: Allergy Symptoms Fluticasone/Umeclidinium/Vilanterol (Fluticasone/Umeclidinium/Vilanterol 100/62.5/25 Blst.W.Dev) 1 puff INHALE RDAILY [facility] Last Admin: 01/11/24 07:58 Dose: 1 puff Glucose (Glucose Gel 15 Gm Gel..Gram.) 15 gm PO Q15M PRN; Protocol PRN Reason: per Hypoglycemia Standing Ord. Dextrose (D10) 250 mls @ 750 mls/hr IV Q15M PRN; Protocol PRN Reason: per Hypoglycemia Standing Ord. Insulin Human Lispro (Insulin Lispro 100 Unit/Ml 3 Ml Vial) 0 unit SUBCUT QIDACHS [facility]; Protocol Last Admin: 01/11/24 09:14 Dose: Not Given Isosorbide Mononitrate (Isosorbide Mononitrate 30 Mg Tab.Er.24h) 30 mg PO DAILY [facility]; Protocol Last Admin: 01/11/24 09:14 Dose: 30 mg Magnesium Hydroxide (Milk Of Magnesia 30 Ml Oral.Susp) 30 ml PO DAILY PRN PRN Reason: Constipation Last Admin: 01/11/24 09:15 Dose: 30 ml Melatonin (Melatonin 3 Mg Tablet) 6 mg PO BEDTIME PRN PRN Reason: Insomnia Metoprolol Tartrate (Metoprolol Tartrate 50 Mg Tablet) 50 mg PO BID [facility]; Protocol Last Admin: 01/11/24 09:14 Dose: 50 mg Potassium Chloride (Potassium Chloride Er 20 Meq Tab.Er.Prt) 20 meq PO Q48H [facility] Last Admin: 01/10/24 20:17 Dose: 20 meq Sodium Chloride (0.9 % Sodium Chloride Flush 3 Ml Syringe) 3 ml IVFLUSH QSHIFT [facility] Last Admin: 01/11/24 09:14 Dose: 3 ml Vitamin D (Cholecalciferol (Vitamin D3) 25 Mcg Tablet) 25 mcg PO DAILY [facility] Last Admin: 01/11/24 09:14 Dose: 25 mcg Home Medications ?Medication ?Instructions ?Recorded ?Confirmed ?Last Taken ?Type ascorbic acid (vitamin C) 500 mg 500 mg PO BID 01/08/24 01/08/24 01/08/24 History tablet (Vitamin C) cholecalciferol (vitamin D3) 25 25 mcg PO DAILY 01/08/24 01/08/24 01/08/24 History mcg (1,000 unit) capsule (Vitamin D3) cyanocobalamin (vitamin B-12) 1,000 mcg PO DAILY 01/08/24 01/08/24 01/08/24 History 1,000 mcg tablet (Vitamin B-12) fluticasone propionate 50 1 spray intranasal DAILY PRN 01/08/24 01/08/24 Unknown History mcg/actuation nasal Allergy Symptoms spray,suspension Physical Exam Vital Signs: Vital Signs: Last Vital Signs Temp 97.2 F 01/11/24 07:34 Pulse 83 01/11/24 08:01 Resp 20 01/11/24 08:01 BP 130/59 L 01/11/24 07:34 Pulse Ox 98 01/11/24 07:34 O2 Del Method Nasal Cannula 01/11/24 07:34 O2 Flow Rate 4 01/11/24 07:34 Oxygen Flow Rate 6 01/08/24 13:14 BMI result Body Mass Index 33.9 Const: General: comfortable, no acute distress, alert and awake Orientation/consciousness: patient oriented x3 HEENT: Head: Yes normal to inspection General nose exam: No nasal polyps present and No nasal discharge present Face and sinus: Yes sinuses nontender Mouth: oropharynx normal Throat: Yes posterior oropharynx normal Eyes: General: appearance normal, both eyes and all related structures Neck: Neck: Yes normal visual inspection, Yes no lymphadenopathy, Yes trachea midline and Yes no JVD Thyroid: Thyroid normal Chest: Chest palpation & inspection: normal inspection of the chest, normal palpation of entire chest wall and no tenderness Resp: Other: PERCUSSION NOTE IS RESONANT, BREATH SOUNDS DISTANT WITH PROLONGED EXPIRATORY PHASE. SHE DOES HAVE INSPIRATORY CRACKLES OVER BOTH LOWER LOBES. NO WHEEZES ARE HEARD. Cardio: Palpation: normal PMI Rate: regular rate Rhythm: abnormal rhythm (ATRIAL FIBRILLATION) Heart sounds: Gallop heart sound present and Murmur heart sound present GI: Palpation (GI): Soft to palpation, nontender, No hepatosplenomegaly present and no masses Auscultation: normal bowel sounds Back/Spine/Pelvis: Other: NOT EXAMINED Skin: General skin exam: no rashes or lesions noted Neuro: General: patient oriented x3, no focal motor deficits and Unable to assess gait Cranial nerves: Yes CN's II-XII intact bilaterally Gait exam (Neuro): Unable to assess gait Extrem: General: Yes no calf tenderness and Yes edema (MINIMAL AROUND THE ANKLES) Psych: Appearance: grossly normal and well kempt Speech and movement: Normal speech and movement present Results Laboratory Findings 01/09/24 06:33 01/10/24 08:44 ABG, PT/INR, D-dimer: PT/INR, D-dimer PT 25.1 SEC (11.1-13.3) H 01/08/24 13:47 INR 2.1 (0.9-1.1) H 01/08/24 13:47 Abnormal lab findings: Abnormal Labs 01/08/24 01/08/24 01/08/24 13:47 17:16 17:58 RBC 4.00 L Hgb 11.5 L MCHC 29.5 L Immature Gran % (Auto) Neut % (Auto) 82.1 H Lymph % (Auto) 7.8 L Evans % (Auto) Lymph # (Auto) 0.7 L Abs Immat Gran (auto) 0.04 H PT 25.1 H INR 2.1 H VBG pH 7.59 H VBG HCO3 39 H Chloride Carbon Dioxide 38 H Anion Gap 11 L BUN 19 H POC Glucose 139 H Random Glucose 166 H Total Bilirubin 1.1 H B-Natriuretic Peptide 398 H 01/08/24 01/09/24 01/09/24 21:15 06:33 07:40 RBC 4.04 L Hgb 11.5 L MCHC 29.6 L Immature Gran % (Auto) 0.6 H Neut % (Auto) 92.6 H Lymph % (Auto) 5.7 L Evans % (Auto) 1.0 L Lymph # (Auto) 0.5 L Abs Immat Gran (auto) 0.05 H PT INR VBG pH VBG HCO3 Chloride Carbon Dioxide 37 H Anion Gap BUN 20 H POC Glucose 274 H 153 H Random Glucose 168 H Total Bilirubin B-Natriuretic Peptide 01/09/24 01/09/24 01/09/24 11:39 16:14 20:29 RBC Hgb MCHC Immature Gran % (Auto) Neut % (Auto) Lymph % (Auto) Evans % (Auto) Lymph # (Auto) Abs Immat Gran (auto) PT INR VBG pH VBG HCO3 Chloride Carbon Dioxide Anion Gap BUN POC Glucose 257 H 142 H 181 H Random Glucose Total Bilirubin B-Natriuretic Peptide 01/10/24 01/10/24 01/10/24 07:14 08:44 10:45 RBC Hgb MCHC Immature Gran % (Auto) Neut % (Auto) Lymph % (Auto) Evans % (Auto) Lymph # (Auto) Abs Immat Gran (auto) PT INR VBG pH VBG HCO3 Chloride 93 L Carbon Dioxide 45 H* D Anion Gap 10 L BUN 31 H POC Glucose 130 H 148 H Random Glucose 138 H Total Bilirubin B-Natriuretic Peptide 442 H 01/10/24 19:42 RBC Hgb MCHC Immature Gran % (Auto) Neut % (Auto) Lymph % (Auto) Evans % (Auto) Lymph # (Auto) Abs Immat Gran (auto) PT INR VBG pH VBG HCO3 Chloride Carbon Dioxide Anion Gap BUN POC Glucose 170 H Random Glucose Total Bilirubin B-Natriuretic Peptide Diagnostic Findings Chest x-ray: report reviewed and image reviewed Assessment and Plan (1) COPD (chronic obstructive pulmonary disease): Qualifiers: COPD type: emphysema Emphysema type: unspecified Qualified Code(s): J43.9 - Emphysema, unspecified Status: Acute (2) Acute and chronic respiratory failure: Status: Acute (3) CHF exacerbation: Status: Acute Plan I THINK THIS ELDERLY FEMALE PATIENT, HAS ACUTE EXACERBATION OF HER CONGESTIVE HEART FAILURE AT THIS TIME, WHICH IS BEING TREATED APPROPRIATELY, WITH GENTLE DIURESIS. SHE DOES HAVE CHRONIC OBSTRUCTIVE PULMONARY DISEASE WHICH IS QUITE ADVANCED, BUT SEEMS TO BE FAIRLY WELL CONTROLLED AND STABLE. THERE DOES NOT SEEM TO BE AN ACUTE EXACERBATION OF COPD AT THIS TIME, HOWEVER IF AFTER APPROPRIATE TREATMENT OF CONGESTIVE HEART FAILURE SHE FAILS TO IMPROVE COMPLETELY A SHORT COURSE OF STEROIDS MAY BE HELPFUL CHRONIC RESPIRATORY FAILURE MAINLY IN THE FORM OF HYPOXEMIA IS TREATED WITH OXYGEN SUPPLEMENTATION VENOUS BLOOD GASES SHOW MILD RESPIRATORY ALKALOSIS WITH PH 7.59 PCO2 40 AND BICARB 39. THIS IS CONSISTENT WITH CHRONIC COMPENSATED RESPIRATORY FAILURE. I AGREE WITH THE CURRENT TREATMENT, BUT IF SHE DOES NOT IMPROVE OPTIMALLY I THINK SHE WILL BENEFIT FROM A SHORT COURSE OF STEROIDS. IT MAY BE HELPFUL TO KEEP HER ON ACETAZOLAMIDE 250 MG DAILY, FOR HER CHRONIC RESPIRATORY FAILURE. THANK YOU VERY MUCH FOR ASKING ME TO SEE THIS PATIENT. Procedures Date of Service Date of Service: 01/11/24
[2024-01-11 09:30] LABS: Glucose, Whole Blood 102 mg/dL (60-115)
[2024-01-11 09:31] LABS: Venous Blood Gas Refer to POC result
[2024-01-11 09:32] LABS: VBG Base Excess 14.5 mmol/L; VBG HCO3 40 mmol/L (22-26); VBG pCO2 57 mmHg; VBG pH 7.46 (7.32-7.43); VBG pO2 92 mmHg
[2024-01-11 09:51] LABS: Anion Gap 9 (12-20); B Type Natriuretic Peptide 224 pg/mL (<100); Blood Urea Nitrogen 35 mg/dL (9-16); Chloride 97 mmol/L (96-108); Creatinine Clr Calc Pharmacy 38.8; Estimated Glomerular Filt Rate 57; Glucose Random 118 mg/dL (60-115); Potassium 4.8 mmol/L (3.3-5.1); Sodium 141 mmol/L (135-145)
[2024-01-11 09:55] LABS: Carbon Dioxide 40 mmol/L (22-29)
--- NOTE | 2024-01-11 11:10 | MHC.CM.PN ---
Per ROUNDS discussion, Patient is not yet medically cleared for dc and will benefit from a PT eval to assist with disposition. CM will follow.
[2024-01-11 12:01] LABS: Glucose, Whole Blood 110 mg/dL (60-115)
[2024-01-11] MEDS: Furosemide 40 MG/4 ML VIAL IVPUSH (12:35)
[2024-01-11] MEDS: acetaZOLAMIDE 250 MG TABLET PO (13:15)
--- NOTE | 2024-01-11 13:31 | P.PNIM_ITS ---
Subjective Subjective Date of Service: 01/11/24 Interval History: chf execerebation, afib with rvr Review of Systems sob seems similar to yesterday dry cough no chest pain last night afib with rvr -received diltiazem/iv metoprolol -hr seems improving Physical Exam 2 Vital Signs: Vital Signs: Last Vital Signs Temp 97.5 F 01/11/24 11:09 Pulse 83 01/11/24 11:26 Resp 20 01/11/24 11:26 BP 142/65 H 01/11/24 11:09 Pulse Ox 97 01/11/24 11:09 O2 Del Method Oxymask 01/11/24 11:09 O2 Flow Rate 7 01/11/24 11:09 Oxygen Flow Rate 6 01/08/24 13:14 BMI result Body Mass Index 33.9 Appearance: Alert.? Oriented X3.? cvs: rrr, [id number] . res: air entry fair ,somewhat diminshed at bases, few scattered rales abd: no rebound or guarding ,nt, bs present. ext pulses present , no cyanosis , 1+edema. neuro: axo3 , nonfocal. Objective Data Active Medications Acetaminophen (Acetaminophen 325 Mg Tablet) 650 mg PO Q6H PRN PRN Reason: Pain, Mild (Pain Scale 1-3), fever or headache Acetazolamide (Acetazolamide 250 Mg Tablet) 250 mg PO DAILY [facility] Albuterol Sulfate (Albuterol Sulfate 90 Mcg 8 Gm Inhaler) 2 puff INHALE Q6H PRN PRN Reason: for wheezing Albuterol/Ipratropium (Albuterol/Iprat 2.5/0.5mg 3 Ml Ampul.Neb) 3 ml INHALE RQ4H WHILE AWAKE PRN PRN Reason: Shortness of Breath/Wheezing Apixaban (Apixaban 5 Mg Tablet) 5 mg PO BID [facility] Last Admin: 01/11/24 09:14 Dose: 5 mg Documented By: TIAGO Ascorbic Acid (Ascorbic Acid 500 Mg Tablet) 500 mg PO BID [facility] Last Admin: 01/11/24 09:14 Dose: 500 mg Documented By: TIAGO Atorvastatin Calcium (Atorvastatin Calcium 20 Mg Tablet) 20 mg PO DAILY [facility] Last Admin: 01/11/24 09:14 Dose: 20 mg Documented By: TIAGO Benzocaine (Throat Lozenge, Medicated Lozenge) 1 lozenge MUCOUS MEM Q2H PRN PRN Reason: Sore Throat Last Admin: 01/09/24 17:45 Dose: 1 lozenge Documented By: ERVIN Calcium Carbonate (Calcium Carbonate 750 Mg Tab.Chew) 750 mg PO Q4H PRN PRN Reason: Heartburn Levalbuterol HCl 1.25 mg/ (Ipratropium [place] 0.5 mg) 0 mg INHALE RQID [facility] Last Admin: 01/11/24 11:23 Dose: 1 dose Documented By: PARDEEP Cyanocobalamin (Cyanocobalamin (Vitamin B-12) 1,000 Mcg Tablet) 1,000 mcg PO DAILY [facility] Last Admin: 01/11/24 09:15 Dose: 1,000 mcg Documented By: TIAGO Diltiazem HCl (Diltiazem Hcl Cd 180 Mg Cap.Er.24h) 180 mg PO DAILY [facility]; Protocol Last Admin: 01/11/24 09:15 Dose: 180 mg Documented By: TIAGO Fluticasone Propionate (Fluticasone Propionate Nasal 16 Gm [place]) 1 spray NOSTRIL-B DAILY PRN PRN Reason: Allergy Symptoms Fluticasone/Umeclidinium/Vilanterol (Fluticasone/Umeclidinium/Vilanterol 100/62.5/25 Blst.W.Dev) 1 puff INHALE RDAILY [facility] Last Admin: 01/11/24 07:58 Dose: 1 puff Documented By: PARDEEP Furosemide (Furosemide 40 Mg/4 Ml Vial) 40 mg IVPUSH DAILY [facility]; Protocol Glucose (Glucose Gel 15 Gm Gel..Gram.) 15 gm PO Q15M PRN; Protocol PRN Reason: per Hypoglycemia Standing Ord. Dextrose (D10) 250 mls @ 750 mls/hr IV Q15M PRN; Protocol PRN Reason: per Hypoglycemia Standing Ord. Insulin Human Lispro (Insulin Lispro 100 Unit/Ml 3 Ml Vial) 0 unit SUBCUT QIDACHS [facility]; Protocol Last Admin: 01/11/24 11:57 Dose: Not Given Documented By: TIAGO Non-Admin Reason: No Insulin Coverage Isosorbide Mononitrate (Isosorbide Mononitrate 30 Mg Tab.Er.24h) 30 mg PO DAILY [facility]; Protocol Last Admin: 01/11/24 09:14 Dose: 30 mg Documented By: TIAGO Magnesium Hydroxide (Milk Of Magnesia 30 Ml Oral.Susp) 30 ml PO DAILY PRN PRN Reason: Constipation Last Admin: 01/11/24 09:15 Dose: 30 ml Documented By: TIAGO Melatonin (Melatonin 3 Mg Tablet) 6 mg PO BEDTIME PRN PRN Reason: Insomnia Metoprolol Tartrate (Metoprolol Tartrate 50 Mg Tablet) 50 mg PO BID [facility]; Protocol Last Admin: 01/11/24 09:14 Dose: 50 mg Documented By: TIAGO Potassium Chloride (Potassium Chloride Er 20 Meq Tab.Er.Prt) 20 meq PO Q48H [facility] Last Admin: 01/10/24 20:17 Dose: 20 meq Documented By: PARAG Sodium Chloride (0.9 % Sodium Chloride Flush 3 Ml Syringe) 3 ml IVFLUSH QSHIFT [facility] Last Admin: 01/11/24 09:14 Dose: 3 ml Documented By: TIAGO Vitamin D (Cholecalciferol (Vitamin D3) 25 Mcg Tablet) 25 mcg PO DAILY [facility] Last Admin: 01/11/24 09:14 Dose: 25 mcg Documented By: TIAGO Labs 01/09/24 06:33 01/11/24 09:22 Labs: Laboratory Results - last 24 hr 01/10/24 01/10/24 01/11/24 15:21 19:42 09:11 VBG pH VBG pCO2 VBG pO2 VBG HCO3 VBG O2 Saturation VBG Base Excess Anion Gap Estim Creat Clear Calc Estimated GFR POC Glucose 109 170 H 102 Random Glucose Calcium B-Natriuretic Peptide 01/11/24 01/11/24 01/11/24 09:22 09:25 11:48 VBG pH 7.46 H VBG pCO2 57 VBG pO2 92 VBG HCO3 40 H VBG O2 Saturation 100.0 VBG Base Excess 14.5 Anion Gap 9 L Estim Creat Clear Calc 38.8 Estimated GFR 57 POC Glucose 110 Random Glucose 118 H Calcium 9.0 B-Natriuretic Peptide 224 H Assessment and Plan (1) Acute and chronic respiratory failure: Status: Acute (2) CHF exacerbation: Status: Acute Assessment and Plan: 88 year old female with persistent atrial fibrillation anticoagulated with Eliquis, heart failure reduced ejection fraction, [id number] type 2 diabetes, COPD, chronic hypoxemic respiratory failure on 2.5/3 L at baseline, history of breast cancer, history of lung cancer 2002 admitted for further management of acute CHF exacerbation. acute exacerbation of heart failure reduced ejection fraction with acute on chronic hypoxemic respiratory failure -BNP 398, CXR with bilateral pleural effusions and cardiomegaly. Symptomatic with orthopnea, dyspnea on exertion -last echocardiogram 2018 shows EF 40-45% still symtomatic VBG noted -ph 7.59/40/177 plan; vbg note -seems ph compensated chest ct reviewed -? pneumonia ,?spiculated lung lesion,pleural effusion strict I&O -1.5 neg,bnp somewhat improving echocardiogram: Low normal LV ejection fraction 50-55% with mild left ventricular hypertrophy need better control afib with rvr also. continue isosorbide, metoprolol, 40 mg IV Lasix daily,cardizem 180 mg po daily,monitor on telemetry with continuous O2,continue supplemental O2 to maintain oximetry around 90%. also dimox 250mg due ph alkalotic /elevated bicarb . follow renal function/lytes cardiology evalyation chest ct reviewed -? pneumonia ,?spiculated lung lesion,pleural effusion: added ceftriaxone/azithromycin (01/11/24) pulm eval for copd/abnormal chest Ct. persistent atrial fibrillation-rate controlled -continue Eliquis for anticoagulation, metoprolol for rate control,adjusted diltiazem. [id number] type 2 diabetes -POC glucose, diabetic diet -Humalog on sliding scale COPD -no acute exacerbation -continue maintenance inhalers, DuoNebs p.r.n. chronic normocytic anemia -H/H baseline, above transfusion threshold DVT prophylaxis-Eliquis Full code Healthcare proxy-daughterJoan [phone] Patient requires inpatient stay: for management of acute CHF exacerbation requiring IV diuresis due to significant volume overload resulting in acute on chronic hypoxemic respiratory failure and will require close monitoring of I/O and renal function/electrolyte levels with possible expert consultation Quality Stroke Does the patient have a stroke diagnosis?: No VTE Prior VTE?: No VTE Risk Level:: Medical - moderate - high VTE Device Contraindication: Treatment Not Indicated VTE Drug Contraindication: N/A - Med Ordered
[2024-01-11] MEDS: cefTRIAXone sodium 1 GM in 0.9 % Sodium Chloride 50 ML IV (14:10)
[2024-01-11] MEDS: Azithromycin 500 MG in 0.9 % Sodium Chloride 250 ML 125 MG IV (15:17)
--- NOTE | 2024-01-11 16:29 | PM.CNCAR ---
History of Present Illness History of Present Illness Date of Service: 01/11/24 Chief complaint: chf exacerbation acute on chronic hypoxia Narrative: Requested by Dr. Contreras to evaluate patient. Patient with many comorbidities including history of congestive heart failure as well as COPD. It seems she does have chronic shortness of breath. However, it has been worse over the last few days. She has also been hypoxic. She is being treated for combination of congestive heart failure as well as COPD. Patient states that she is now coughing up some dark phlegm as well. Otherwise, no angina. No significant swelling in the feet. She also has atrial fibrillation being managed by rate control. Review of Systems Review of Systems: Yes all other systems are reviewed and are negative Constitutional: Constitutional: Reports as per HPI and Reports no additional constitutional complaints Eyes: Eyes: Reports as per HPI and Denies no additional eye complaints ENT: Denies system reviewed and no additional complaints, except as documented and Reports as per HPI Cardiovascular: Cardiovascular: Reports as per HPI, Reports no additional cardiovascular complaints, Denies acrocyanosis, Denies cool extremities, Denies chest pain, Denies leg edema, Denies lightheadedness, Denies palpitations and Reports dyspnea Respiratory: Respiratory: Reports as per HPI, Denies no additional respiratory complaints and Reports dyspnea Gastrointestinal: Gastrointestinal: Reports as per HPI and Denies no additional gastrointestinal complaints Genitourinary: Genitourinary: Reports as per HPI Musculoskeletal: Musculoskeletal: Reports no additional musculoskeletal complaints and Reports as per HPI Integumentary/Breasts: Skin/Breast: Reports system reviewed and no additional complaints, except as docu Neurologic: Reports system reviewed and no additional complaints, except as documented and Reports as per HPI Psychiatric: Psychiatric: Reports no additional psychiatric complaints and Reports as per HPI Endocrine: Endocrine: Reports no additional endocrine complaints, Reports as per HPI and Denies palpitations Hematologic/Lymphatic: Hematologic/Lymphatic: Reports no additional hematologic/lymphatic complaints and Reports as per HPI Allergic/Immunologic: Allergic/Immunologic: Reports no additional allergic/immunologic complaints and Reports as per HPI [facility] Past Medical History Medical History History of cancer of upper lobe bronchus or lung Age-related osteoporosis without current pathological fracture History of right breast cancer Mesenteric ischemia Diverticular disease Atrial fibrillation Congestive heart failure Degenerative disc disease Coronary artery disease Obesity (BMI 30-39.9) Peripheral vascular disease Hypercholesterolemia TIA (transient ischemic attack) Anemia Breast cancer Small cell lung cancer, right lower lobe HTN (hypertension) COPD (chronic obstructive pulmonary disease) Family History Family History Father Heart disease Mother Heart disease Brother Multiple myeloma Brother Lung cancer Surgical History Surgical History History of lumpectomy of right breast H/O resection of small bowel Social History Social History Household Members: Family Housing: Apartment Are you a primary child care centre manager to a significant other at home: No Do you presently have visiting nurse or other home services: No Alcohol intake: never Patient Tobacco Use Status: Former Tobacco user Tobacco use type: Cigarette e-Cigarette/Vaping Use: Never Used Second Hand Smoke Exposure: No Advance Directives Date on File: 01/08/24 service: No Current occupational status: retired Current occupational exposures/hazards: No Cognitive needs: Yes (walker) Hearing needs: Yes Vision needs: Yes (glasses) Meds Allergies Allergy/AdvReac Type Severity Reaction Status Date / Time ADONIS Inhibitors Allergy Severe ANGIOEDEMA Verified 01/08/24 13:18 [Adonis Inhibitors] Sulfa (Sulfonamide Allergy Intermediate CHILLS Verified 01/08/24 13:18 Antibiotics) [Sulfa (Sulfonamides)] Active Medications: Current Medications Acetaminophen (Acetaminophen 325 Mg Tablet) 650 mg PO Q6H PRN PRN Reason: Pain, Mild (Pain Scale 1-3), fever or headache Acetazolamide (Acetazolamide 250 Mg Tablet) 250 mg PO DAILY [facility] Albuterol Sulfate (Albuterol Sulfate 90 Mcg 8 Gm Inhaler) 2 puff INHALE Q6H PRN PRN Reason: for wheezing Albuterol/Ipratropium (Albuterol/Iprat 2.5/0.5mg 3 Ml Ampul.Neb) 3 ml INHALE RQ4H WHILE AWAKE PRN PRN Reason: Shortness of Breath/Wheezing Apixaban (Apixaban 5 Mg Tablet) 5 mg PO BID [facility] Last Admin: 01/11/24 09:14 Dose: 5 mg Ascorbic Acid (Ascorbic Acid 500 Mg Tablet) 500 mg PO BID [facility] Last Admin: 01/11/24 09:14 Dose: 500 mg Atorvastatin Calcium (Atorvastatin Calcium 20 Mg Tablet) 20 mg PO DAILY [facility] Last Admin: 01/11/24 09:14 Dose: 20 mg Benzocaine (Throat Lozenge, Medicated Lozenge) 1 lozenge MUCOUS MEM Q2H PRN PRN Reason: Sore Throat Last Admin: 01/09/24 17:45 Dose: 1 lozenge Calcium Carbonate (Calcium Carbonate 750 Mg Tab.Chew) 750 mg PO Q4H PRN PRN Reason: Heartburn Levalbuterol HCl 1.25 mg/ (Ipratropium [place] 0.5 mg) 0 mg INHALE RQID [facility] Last Admin: 01/11/24 15:14 Dose: 1 dose Cyanocobalamin (Cyanocobalamin (Vitamin B-12) 1,000 Mcg Tablet) 1,000 mcg PO DAILY [facility] Last Admin: 01/11/24 09:15 Dose: 1,000 mcg Diltiazem HCl (Diltiazem Hcl Cd 180 Mg Cap.Er.24h) 180 mg PO DAILY [facility]; Protocol Last Admin: 01/11/24 09:15 Dose: 180 mg Fluticasone Propionate (Fluticasone Propionate Nasal 16 Gm [place]) 1 spray NOSTRIL-B DAILY PRN PRN Reason: Allergy Symptoms Fluticasone/Umeclidinium/Vilanterol (Fluticasone/Umeclidinium/Vilanterol 100/62.5/25 Blst.W.Dev) 1 puff INHALE RDAILY [facility] Last Admin: 01/11/24 07:58 Dose: 1 puff Furosemide (Furosemide 40 Mg/4 Ml Vial) 40 mg IVPUSH DAILY [facility]; Protocol Glucose (Glucose Gel 15 Gm Gel..Gram.) 15 gm PO Q15M PRN; Protocol PRN Reason: per Hypoglycemia Standing Ord. Dextrose (D10) 250 mls @ 750 mls/hr IV Q15M PRN; Protocol PRN Reason: per Hypoglycemia Standing Ord. Ceftriaxone Sodium 1 gm/ (Sodium Chloride) 50 mls @ 100 mls/hr IV Q24H [facility] Last Infusion: 01/11/24 15:20 Dose: Infused Azithromycin 500 mg/ Sodium (Chloride) 250 mls @ 125 mls/hr IV Q24H [facility] Last Admin: 01/11/24 15:17 Dose: 125 mls/hr Insulin Human Lispro (Insulin Lispro 100 Unit/Ml 3 Ml Vial) 0 unit SUBCUT QIDACHS [facility]; Protocol Last Admin: 01/11/24 11:57 Dose: Not Given Isosorbide Mononitrate (Isosorbide Mononitrate 30 Mg Tab.Er.24h) 30 mg PO DAILY [facility]; Protocol Last Admin: 01/11/24 09:14 Dose: 30 mg Magnesium Hydroxide (Milk Of Magnesia 30 Ml Oral.Susp) 30 ml PO DAILY PRN PRN Reason: Constipation Last Admin: 01/11/24 09:15 Dose: 30 ml Melatonin (Melatonin 3 Mg Tablet) 6 mg PO BEDTIME PRN PRN Reason: Insomnia Metoprolol Tartrate (Metoprolol Tartrate 50 Mg Tablet) 50 mg PO BID [facility]; Protocol Last Admin: 01/11/24 09:14 Dose: 50 mg Potassium Chloride (Potassium Chloride Er 20 Meq Tab.Er.Prt) 20 meq PO Q48H [facility] Last Admin: 01/10/24 20:17 Dose: 20 meq Sodium Chloride (0.9 % Sodium Chloride Flush 3 Ml Syringe) 3 ml IVFLUSH QSHIFT [facility] Last Admin: 01/11/24 15:20 Dose: 3 ml Vitamin D (Cholecalciferol (Vitamin D3) 25 Mcg Tablet) 25 mcg PO DAILY [facility] Last Admin: 01/11/24 09:14 Dose: 25 mcg Home Medications ?Medication ?Instructions ?Recorded ?Confirmed ?Last Taken ?Type ascorbic acid (vitamin C) 500 mg 500 mg PO BID 01/08/24 01/08/24 01/08/24 History tablet (Vitamin C) cholecalciferol (vitamin D3) 25 25 mcg PO DAILY 01/08/24 01/08/24 01/08/24 History mcg (1,000 unit) capsule (Vitamin D3) cyanocobalamin (vitamin B-12) 1,000 mcg PO DAILY 01/08/24 01/08/24 01/08/24 History 1,000 mcg tablet (Vitamin B-12) fluticasone propionate 50 1 spray intranasal DAILY PRN 01/08/24 01/08/24 Unknown History mcg/actuation nasal Allergy Symptoms spray,suspension Physical Exam Vital Signs: Vital Signs: Last Vital Signs Temp 97.5 F 01/11/24 11:09 Pulse 92 01/11/24 15:16 Resp 20 01/11/24 15:16 BP 142/65 H 01/11/24 11:09 Pulse Ox 97 01/11/24 11:09 O2 Del Method Oxymask 01/11/24 11:09 O2 Flow Rate 7 01/11/24 11:09 Oxygen Flow Rate 6 01/08/24 13:14 BMI result Body Mass Index 33.9 Const: General: comfortable and no acute distress Orientation/consciousness: patient oriented x3 HEENT: Other: Unremarkable Head: Yes normal to inspection Neck: Neck: Yes normal visual inspection Chest: Chest palpation & inspection: normal inspection of the chest Resp: Auscultation: crackles and diminished lung sounds Cardio: Palpation: normal PMI Heart sounds: S1 normal heart sound present, S2 normal heart sound present, no gallops, no murmurs and no rubs GI: Palpation (GI): Soft to palpation Back/Spine/Pelvis: Other: unremarkable Skin: General skin exam: no rashes or lesions noted Neuro: General: patient oriented x3 Extrem: General: Yes normal to inspection Psych: Mental Status: mental status grossly normal Objective Labs and Meds 01/09/24 06:33 01/11/24 09:22 Lab results: Laboratory Results - last 24 hr 01/10/24 01/11/24 01/11/24 19:42 09:11 09:22 VBG pH VBG pCO2 VBG pO2 VBG HCO3 VBG O2 Saturation VBG Base Excess Sodium 141 Potassium 4.8 Chloride 97 Carbon Dioxide 40 H* Anion Gap 9 L BUN 35 H Creatinine 0.93 Estim Creat Clear Calc 38.8 Estimated GFR 57 POC Glucose 170 H 102 Random Glucose 118 H Calcium 9.0 B-Natriuretic Peptide 224 H 01/11/24 01/11/24 09:25 11:48 VBG pH 7.46 H VBG pCO2 57 VBG pO2 92 VBG HCO3 40 H VBG O2 Saturation 100.0 VBG Base Excess 14.5 Sodium Potassium Chloride Carbon Dioxide Anion Gap BUN Creatinine Estim Creat Clear Calc Estimated GFR POC Glucose 110 Random Glucose Calcium B-Natriuretic Peptide ECG Interpretation: EKG with underlying atrial fibrillation at a rate of 80/Min; rightward axis; can not exclude old septal infarct. On telemetry, atrial fibrillation with rate in the 80s. Imaging Radiologist's impression: Impressions Chest CT 01/11/24 09:45 IMPRESSION: 1. Moderate to large loculated pleural effusion on the right. 2. Small area of consolidation in the right upper lobe and patchy groundglass opacities in the right lower lobe. 3. Spiculated lesion in the right lower lobe. 4. Cardiomegaly and pulmonary hypertension. 5. Postoperative changes in the right hilum and posterior mediastinum. Fleischner guidelines were followed. Assessment and Plan (1) Acute hypoxic on chronic hypercapnic respiratory failure: Status: Acute Plan Pertinent data reviewed. On the echocardiogram, LVEF is 50-55%. Biatrial enlargement. Severely reduced RV systolic function. [id number] aortic stenosis. Moderate pulmonary hypertension with mildly elevated right atrial pressure. Trivial pericardial effusion. Labs show carbon dioxide of 40. BUN 35. Creatinine 0.93. Cardiac BNP is 224. Not too different from her baseline and in fact lower than before. In the chest CT scan, moderate to large loculated right pleural effusion. Small area of consolidation in the right upper lobe and patchy opacities in the right lower lobe. Cardiomegaly/pulmonary hypertension. Overall, clinically she is not having any overt fluid overload. JVD is also not clearly elevated. Difficult to assess for sure but suspect some combination of cardiac and pulmonary etiologies contributing to her symptoms. Advanced lung disease certainly plays a role. Atrial fibrillation itself is controlled. She is currently on IV diuretics and that is acceptable. Also on Diamox. Antibiotics empirically. Consider steroids. Consider thoracentesis as well for the pericardial effusion. Discussed with Dr. Contreras. Procedures Date of Service Date of Service: 01/11/24
[2024-01-11 17:02] LABS: Glucose, Whole Blood 101 mg/dL (60-115)
[2024-01-11 22:07] LABS: Glucose, Whole Blood 104 mg/dL (60-115)
[2024-01-12] VITALS (9 sets, daily range): BP systolic 107–135; BP diastolic 50–90; PULSE 75–108; RESP 18–20; TEMP 36.1–37.1; O2SAT 92–100; BMI 33.8
[2024-01-12] MEDS: 0.9 % Sodium Chloride Flush 3 ML SYRINGE IVFLUSH ×3 (00:43→20:54)
[2024-01-12] MEDS: levalbuterol HCL 1.25 MG, Ipratropium Bromide 0.5 MG INHALE ×3 (07:38→19:36)
[2024-01-12] MEDS: Fluticasone/Umeclidinium/Vilanterol 100/62.5/25 BLST.W.DEV 1 PUFF INHALE (07:39)
[2024-01-12 07:54] LABS: Glucose, Whole Blood 107 mg/dL (60-115)
[2024-01-12] MEDS: Furosemide 40 MG/4 ML VIAL IVPUSH (07:58)
[2024-01-12] MEDS: Atorvastatin Calcium 20 MG TABLET PO (08:01)
[2024-01-12] MEDS: dilTIAZem HCL CD 180 MG CAP.ER.24H PO (08:01)
[2024-01-12] MEDS: Apixaban 5 MG TABLET PO ×2 (08:01→20:54)
[2024-01-12] MEDS: Ascorbic Acid 500 MG TABLET PO ×2 (08:01→20:54)
[2024-01-12] MEDS: predniSONE 20 MG TABLET 40 MG PO (08:02)
[2024-01-12] MEDS: Isosorbide Mononitrate 30 MG TAB.ER.24H PO (08:02)
[2024-01-12] MEDS: Cholecalciferol (Vitamin D3) 25 MCG TABLET PO (08:02)
[2024-01-12] MEDS: acetaZOLAMIDE 250 MG TABLET PO (08:02)
[2024-01-12] MEDS: Metoprolol Tartrate 50 MG TABLET PO ×2 (08:02→20:53)
[2024-01-12] MEDS: Cyanocobalamin (Vitamin B-12) 1,000 MCG TABLET 1000 MCG PO (08:02)
--- NOTE | 2024-01-12 10:19 | PM.PNCARD ---
Subjective Subjective Date of Service: 01/12/24 Interval history: Patient states she is actually feeling better. Shortness of breath is less today. She states she is expectorating green phlegm. Review of Systems Review of Systems Yes all other systems are reviewed and are negative Constitutional: Reports as per HPI and Reports no additional constitutional complaints Eyes: Reports as per HPI and Denies no additional eye complaints Denies system reviewed and no additional complaints, except as documented and Reports as per HPI Cardiovascular: Reports as per HPI, Reports no additional cardiovascular complaints, Denies acrocyanosis, Denies cool extremities, Denies chest pain, Denies leg edema, Denies lightheadedness, Denies palpitations and Reports dyspnea Respiratory: Reports as per HPI, Denies no additional respiratory complaints, Reports cough and Reports dyspnea Gastrointestinal: Reports as per HPI and Denies no additional gastrointestinal complaints Genitourinary: Reports as per HPI Musculoskeletal: Reports no additional musculoskeletal complaints and Reports as per HPI Skin/Breast: Reports system reviewed and no additional complaints, except as docu Reports system reviewed and no additional complaints, except as documented and Reports as per HPI Psychiatric: Reports no additional psychiatric complaints and Reports as per HPI Endocrine: Reports no additional endocrine complaints, Reports as per HPI and Denies palpitations Hematologic/Lymphatic: Reports no additional hematologic/lymphatic complaints and Reports as per HPI Allergic/Immunologic: Reports no additional allergic/immunologic complaints and Reports as per HPI Physical Exam Vital Signs: Last Vital Signs Temp 97 F 01/12/24 07:29 Pulse 96 01/12/24 07:43 Resp 20 01/12/24 07:43 BP 135/68 01/12/24 07:29 Pulse Ox 99 01/12/24 07:29 O2 Del Method Oxymask 01/12/24 07:29 O2 Flow Rate 3 01/12/24 07:29 Oxygen Flow Rate 6 01/08/24 13:14 BMI result Body Mass Index 33.8 Const General: comfortable and no acute distress Orientation/consciousness: patient oriented x3 HEENT Other: Unremarkable Head: Yes normal to inspection Neck Neck: Yes normal visual inspection Chest Chest palpation & inspection: normal inspection of the chest Resp Other: few basal crackles Auscultation: diminished lung sounds Cardio Palpation: normal PMI Heart sounds: S1 normal heart sound present, S2 normal heart sound present, no gallops, no murmurs and no rubs GI Palpation (GI): Soft to palpation Back/Spine/Pelvis Other: unremarkable Skin General skin exam: no rashes or lesions noted Neuro General: patient oriented x3 Extrem General: Yes normal to inspection Psych Mental Status: mental status grossly normal Objective Labs and Meds 01/09/24 06:33 01/11/24 09:22 Lab results: Laboratory Results - last 24 hr 01/11/24 01/11/24 01/11/24 11:48 16:56 21:58 POC Glucose 110 101 104 01/12/24 07:34 POC Glucose 107 Imaging Radiologist's impression: Impressions Chest CT 01/11/24 09:45 IMPRESSION: 1. Moderate to large loculated pleural effusion on the right. 2. Small area of consolidation in the right upper lobe and patchy groundglass opacities in the right lower lobe. 3. Spiculated lesion in the right lower lobe. 4. Cardiomegaly and pulmonary hypertension. 5. Postoperative changes in the right hilum and posterior mediastinum. Fleischner guidelines were followed. Progress Note: A&P Assessment and plan (1) Acute hypoxic on chronic hypercapnic respiratory failure: Status: Acute Plan Pertinent data reviewed. On the echocardiogram, LVEF is 50-55%. Biatrial enlargement. Severely reduced RV systolic function. Oxim-ky-rodahfhe aortic stenosis. Moderate pulmonary hypertension with mildly elevated right atrial pressure. Trivial pericardial effusion. Labs show carbon dioxide of 40. BUN 35. Creatinine 0.93. Cardiac BNP is 224. Not too different from her baseline and in fact lower than before. In the chest CT scan, moderate to large loculated right pleural effusion. Small area of consolidation in the right upper lobe and patchy opacities in the right lower lobe. Cardiomegaly/pulmonary hypertension. Overall, overall multifactorial but she does not seem to be in profound heart failure. There is no evidence of JVD, pulmonary congestion or leg swelling. Could be just a combination of her advanced lung disease as well as cardiac issues. Empiric diuretics as still reasonable. She is also on Diamox. Antibiotics especially as she is stating that she is bringing up green phlegm. Also on steroids. Consider thoracentesis as well for the pericardial effusion. Discussed with Dr. Ben montejo p.m.. Time Spent With Patient Time: Total time managing care of this patient today ____ minutes. Progress Note: Quality Stroke Does the patient have a stroke diagnosis?: No Procedures Date of Service Date of Service: 01/12/24
--- NOTE | 2024-01-12 11:19 | MHC.CM.PN ---
Per rounds, pt is not yet ready to DC. DCP was initially home with services, CM awaiting recommendations if home or STR. Will follow for DC needs.
[2024-01-12] MEDS: Lidocaine HCl 1 % MPF 5 ML VIAL SUBCUT (11:43)
[2024-01-12 12:20] LABS: MN% 83.6 %; PMN% 16.4 %; RBC Pleural Fluid 0.005 X10*6/uL; WBC Pleural Fluid 0.935 X10*3/uL
[2024-01-12 12:31] LABS: Glucose, Whole Blood 143 mg/dL (60-115)
[2024-01-12 12:51] LABS: BF Shift QC OK YES; Lymphocytes Pleural Fluid 44 %; Man Diluent Bkgrd OK YES; Monocytes Pleural Fluid 2 %; Neutrophils Pleural Fluid 17 %
[2024-01-12 12:52] LABS: Other Cells Plerual Fl 37 %
[2024-01-12] MEDS: cefTRIAXone sodium 1 GM in 0.9 % Sodium Chloride 50 ML IV (14:14)
[2024-01-12] MEDS: Azithromycin 500 MG in 0.9 % Sodium Chloride 250 ML 125 MG IV (14:53)
--- NOTE | 2024-01-12 16:41 | P.PNIM_ITS ---
Subjective Subjective Date of Service: 01/12/24 Interval History: No acute issues overnight. Therapeutic thoracentesis this afternoon with good results. States breathing improved Review of Systems Denies chest pain Admits to shortness of breath that is improved Denies nausea vomiting diarrhea Physical Exam 2 Vital Signs: Vital Signs: Last Vital Signs Temp 97.2 F 01/12/24 16:00 Pulse 100 01/12/24 16:00 Resp 20 01/12/24 16:00 BP 107/50 L 01/12/24 16:00 Pulse Ox 92 01/12/24 16:00 O2 Del Method Nasal Cannula 01/12/24 16:00 O2 Flow Rate 2 01/12/24 16:00 Oxygen Flow Rate 6 01/08/24 13:14 BMI result Body Mass Index 33.8 Const: Other: Awake alert no acute distress Resp: Other: Diminished at bases with scattered expiratory wheezes Cardio: Other: No S4; positive S1-S2; no S3 murmurs rubs or gallops GI: Other: Soft nontender nondistended normoactive bowel sounds Extrem: Other: No edema bilaterally Objective Data Active Medications Acetaminophen (Acetaminophen 325 Mg Tablet) 650 mg PO Q6H PRN PRN Reason: Pain, Mild (Pain Scale 1-3), fever or headache Acetazolamide (Acetazolamide 250 Mg Tablet) 250 mg PO DAILY [facility] Last Admin: 01/12/24 08:02 Dose: 250 mg Documented By: TIAGO Albuterol Sulfate (Albuterol Sulfate 90 Mcg 8 Gm Inhaler) 2 puff INHALE Q6H PRN PRN Reason: for wheezing Albuterol/Ipratropium (Albuterol/Iprat 2.5/0.5mg 3 Ml Ampul.Neb) 3 ml INHALE RQ4H WHILE AWAKE PRN PRN Reason: Shortness of Breath/Wheezing Apixaban (Apixaban 5 Mg Tablet) 5 mg PO BID [facility] Last Admin: 01/12/24 08:01 Dose: 5 mg Documented By: ITAGO Ascorbic Acid (Ascorbic Acid 500 Mg Tablet) 500 mg PO BID [facility] Last Admin: 01/12/24 08:01 Dose: 500 mg Documented By: TIAGO Atorvastatin Calcium (Atorvastatin Calcium 20 Mg Tablet) 20 mg PO DAILY [facility] Last Admin: 01/12/24 08:01 Dose: 20 mg Documented By: TIAGO Benzocaine (Throat Lozenge, Medicated Lozenge) 1 lozenge MUCOUS MEM Q2H PRN PRN Reason: Sore Throat Last Admin: 01/09/24 17:45 Dose: 1 lozenge Documented By: ERVIN Calcium Carbonate (Calcium Carbonate 750 Mg Tab.Chew) 750 mg PO Q4H PRN PRN Reason: Heartburn Levalbuterol HCl 1.25 mg/ (Ipratropium [place] 0.5 mg) 0 mg INHALE RQID [facility] Last Admin: 01/12/24 15:08 Dose: 1 dose Documented By: PARDEEP Cyanocobalamin (Cyanocobalamin (Vitamin B-12) 1,000 Mcg Tablet) 1,000 mcg PO DAILY [facility] Last Admin: 01/12/24 08:02 Dose: 1,000 mcg Documented By: TIAGO Diltiazem HCl (Diltiazem Hcl Cd 180 Mg Cap.Er.24h) 180 mg PO DAILY [facility]; Protocol Last Admin: 01/12/24 08:01 Dose: 180 mg Documented By: TIAGO Fluticasone Propionate (Fluticasone Propionate Nasal 16 Gm [place]) 1 spray NOSTRIL-B DAILY PRN PRN Reason: Allergy Symptoms Fluticasone/Umeclidinium/Vilanterol (Fluticasone/Umeclidinium/Vilanterol 100/62.5/25 Blst.W.Dev) 1 puff INHALE RDAILY [facility] Last Admin: 01/12/24 07:39 Dose: 1 puff Documented By: PARDEEP Furosemide (Furosemide 40 Mg/4 Ml Vial) 40 mg IVPUSH DAILY [facility]; Protocol Last Admin: 01/12/24 07:58 Dose: 40 mg Documented By: TIAGO Glucose (Glucose Gel 15 Gm Gel..Gram.) 15 gm PO Q15M PRN; Protocol PRN Reason: per Hypoglycemia Standing Ord. Dextrose (D10) 250 mls @ 750 mls/hr IV Q15M PRN; Protocol PRN Reason: per Hypoglycemia Standing Ord. Ceftriaxone Sodium 1 gm/ (Sodium Chloride) 50 mls @ 100 mls/hr IV Q24H [facility] Last Infusion: 01/12/24 14:54 Dose: Infused Documented By: TIAGO Azithromycin 500 mg/ Sodium (Chloride) 250 mls @ 125 mls/hr IV Q24H [facility] Last Admin: 01/12/24 14:53 Dose: 125 mls/hr Documented By: TIAGO Insulin Human Lispro (Insulin Lispro 100 Unit/Ml 3 Ml Vial) 0 unit SUBCUT QIDACHS [facility]; Protocol Last Admin: 01/12/24 12:32 Dose: Not Given Documented By: TIAGO Non-Admin Reason: No Insulin Coverage Isosorbide Mononitrate (Isosorbide Mononitrate 30 Mg Tab.Er.24h) 30 mg PO DAILY [facility]; Protocol Last Admin: 01/12/24 08:02 Dose: 30 mg Documented By: TIAGO Magnesium Hydroxide (Milk Of Magnesia 30 Ml Oral.Susp) 30 ml PO DAILY PRN PRN Reason: Constipation Last Admin: 01/11/24 09:15 Dose: 30 ml Documented By: TIAGO Melatonin (Melatonin 3 Mg Tablet) 6 mg PO BEDTIME PRN PRN Reason: Insomnia Metoprolol Tartrate (Metoprolol Tartrate 50 Mg Tablet) 50 mg PO BID [facility]; Protocol Last Admin: 01/12/24 08:02 Dose: 50 mg Documented By: TIAGO Potassium Chloride (Potassium Chloride Er 20 Meq Tab.Er.Prt) 20 meq PO Q48H [facility] Last Admin: 01/10/24 20:17 Dose: 20 meq Documented By: PARAG Prednisone (Prednisone 20 Mg Tablet) 40 mg PO DAILY [facility] Last Admin: 01/12/24 08:02 Dose: 40 mg Documented By: TIAGO Sodium Chloride (0.9 % Sodium Chloride Flush 3 Ml Syringe) 3 ml IVFLUSH QSHIFT [facility] Last Admin: 01/12/24 16:21 Dose: Not Given Documented By: TIAGO Non-Admin Reason: IV Running Vitamin D (Cholecalciferol (Vitamin D3) 25 Mcg Tablet) 25 mcg PO DAILY [facility] Last Admin: 01/12/24 08:02 Dose: 25 mcg Documented By: TIAGO Labs 01/09/24 06:33 01/11/24 09:22 Labs: Laboratory Results - last 24 hr 01/11/24 01/11/24 01/12/24 16:56 21:58 07:34 POC Glucose 101 104 107 Pleural WBC Pleural RBC Pleural Neutrophils Pleural Lymphocytes Pleural Monocytes Pleural Other Cells 01/12/24 01/12/24 11:28 12:28 POC Glucose 143 H Pleural WBC 0.935 Pleural RBC 0.005 Pleural Neutrophils 17 Pleural Lymphocytes 44 Pleural Monocytes 2 Pleural Other Cells 37 Microbiology Microbiology Results: Microbiology 01/12/24 11:28 Gram Stain - Final Pleural Fluid Assessment and Plan (1) CHF exacerbation: Status: Acute Assessment and Plan: 88 year old female with persistent atrial fibrillation anticoagulated with Eliquis, heart failure reduced ejection fraction, [id number] type 2 diabetes, COPD, chronic hypoxemic respiratory failure on 2.5/3 L at baseline, history of breast cancer, history of lung cancer 2002 admitted for further management of acute CHF exacerbation. 1.HFpEF (acute exacerbation resolved) -appreciate cardiac input -now stable and well compensated -metoprolol/Cardizem/IV Lasix. .. Continue on telemetry -continue Diamox as ordered -follow renals/divalents 2. Pleural effusion -ultrasound-guided thoracentesis done today with improvement -follow-up pulmonary status in a.m. -continue empiric ceftriaxone/azithromycin (2) 3.Persistent atrial fibrillation-rate controlled -rate control acceptable at current times -Eliquis -adjust as indicated 4.Prt-ldfrvtz-ljoslbjdp type 2 diabetes -lispro correctional scale -adjust as indicated 5.COPD -likely contributed to initial respiratory failure -continue empirical antibiotics as patient producing sputum -titrate O2 as clinically indicated Eliquis Full code Healthcare proxy-daughterJoan [phone] Requires ongoing hospitalization for empiric treatment for COPD exacerbation as well as follow-up after therapeutic thoracentesis along with ongoing specialty consultation (2) Acute hypoxic on chronic hypercapnic respiratory failure: Status: Acute (3) Type 2 diabetes mellitus with hyperglycemia: Status: Acute (4) Chronic atrial fibrillation: Status: Acute Quality Stroke Does the patient have a stroke diagnosis?: No VTE Prior VTE?: No VTE Risk Level:: Medical - moderate - high VTE Device Contraindication: Treatment Not Indicated VTE Drug Contraindication: N/A - Med Ordered
[2024-01-12 16:46] LABS: Glucose, Whole Blood 241 mg/dL (60-115)
[2024-01-12] MEDS: Insulin Lispro 100 UNIT/ML 3 ML VIAL SUBCUT ×2 (17:09→21:54)
[2024-01-12] MEDS: Potassium Chloride ER 20 MEQ TAB.ER.PRT PO (20:53)
[2024-01-12 21:05] LABS: Glucose, Whole Blood 185 mg/dL (60-115)
[2024-01-13] VITALS (10 sets, daily range): BP systolic 97–157; BP diastolic 64–85; PULSE 67–117; RESP 15–18; TEMP 36.1–36.6; O2SAT 91–100; BMI 33.1
[2024-01-13 06:43] LABS: MANUAL DIFF FLAG NO
[2024-01-13 06:54] LABS: Basophils Percent Auto 0.2 % (0-2); Eosinophils Absolute Auto 0.1 X10*3/uL (0.0-0.4); Eosinophils Percent Auto 0.6 % (0-4); Hematocrit 37.9 % (37.0-47.0); Hemoglobin 11.3 g/dl (12.0-16.0); Imm Gran Abs Auto 0.04 X10*3/uL (0.00-0.03); Imm Gran Pct Auto 0.4 % (0.0-0.4); Lymphocytes Percent Auto 9.4 % (20-40); Mean Corpuscular HGB Conc 29.8 g/dl (31.0-35.0); Mean Corpuscular Hemoglobin 28.3 pg (27.0-33.0); Mean Platelet Volume 11.4 fL (9.4-12.3); Monocytes Absolute Auto 1.1 X10*3/uL (0.1-1.2); Monocytes Percent Auto 10.3 % (2-11); Neutrophils Absolute Auto 8.6 x10*3/uL (2.0-8.3); Neutrophils Percent Auto 79.1 % (45-73); Platelet Count 202 X10*3/uL (160-400); Red Blood Count 3.99 X10*6/uL (4.20-5.50); Red Cell Distribution Width 14.2 % (11.0-16.0); White Blood Count 10.8 X10*3/uL (4.8-10.8)
[2024-01-13 07:13] LABS: Alanine Aminotransferase 9 U/L (0-31); Albumin Level 3.5 g/dL (3.5-5.0); Alkaline Phosphatase 55 U/L (39-117); Anion Gap 10 (12-20); Aspartate Amino Transferase 13 U/L (5-31); Bilirubin Total 0.6 mg/dL (0.0-1.0); Blood Urea Nitrogen 37 mg/dL (9-16); Calcium 9.2 mg/dL (8.4-10.2); Carbon Dioxide 36 mmol/L (22-29); Chloride 97 mmol/L (96-108); Creatinine Clr Calc Pharmacy 36.4; Estimated Glomerular Filt Rate 54; Glucose Fasting 136 mg/dL (60-99); Potassium 4.1 mmol/L (3.3-5.1); Sodium 139 mmol/L (135-145)
[2024-01-13] MEDS: Fluticasone/Umeclidinium/Vilanterol 100/62.5/25 BLST.W.DEV 1 PUFF INHALE (07:40)
[2024-01-13] MEDS: levalbuterol HCL 1.25 MG, Ipratropium Bromide 0.5 MG INHALE ×3 (07:40→19:56)
[2024-01-13 07:41] LABS: Glucose, Whole Blood 130 mg/dL (60-115)
[2024-01-13] MEDS: Cholecalciferol (Vitamin D3) 25 MCG TABLET PO (08:03)
[2024-01-13] MEDS: Metoprolol Tartrate 50 MG TABLET PO ×2 (08:03→21:58)
[2024-01-13] MEDS: Apixaban 5 MG TABLET PO ×2 (08:03→22:00)
[2024-01-13] MEDS: predniSONE 20 MG TABLET 40 MG PO (08:03)
[2024-01-13] MEDS: Ascorbic Acid 500 MG TABLET PO ×2 (08:03→22:00)
[2024-01-13] MEDS: Furosemide 40 MG/4 ML VIAL IVPUSH (08:03)
[2024-01-13] MEDS: acetaZOLAMIDE 250 MG TABLET PO (08:03)
[2024-01-13] MEDS: Isosorbide Mononitrate 30 MG TAB.ER.24H PO (08:04)
[2024-01-13] MEDS: dilTIAZem HCL CD 180 MG CAP.ER.24H PO (08:04)
[2024-01-13] MEDS: Cyanocobalamin (Vitamin B-12) 1,000 MCG TABLET 1000 MCG PO (08:04)
[2024-01-13] MEDS: Atorvastatin Calcium 20 MG TABLET PO (08:04)
[2024-01-13] MEDS: 0.9 % Sodium Chloride Flush 3 ML SYRINGE IVFLUSH ×3 (08:04→22:02)
[2024-01-13 11:49] LABS: Glucose, Whole Blood 173 mg/dL (60-115)
[2024-01-13] MEDS: Insulin Lispro 100 UNIT/ML 3 ML VIAL SUBCUT ×3 (12:43→22:00)
[2024-01-13] MEDS: cefTRIAXone sodium 1 GM in 0.9 % Sodium Chloride 50 ML IV (12:44)
--- NOTE | 2024-01-13 12:59 | MHC.CM.PN ---
Per ROUNDS discussion, Patient is not yet medically cleared for dc (tapped and still on 4L O2); Patient may benefit from a PT Eval to assist with disposition.CM will follow.
--- NOTE | 2024-01-13 13:10 | HO.PM.IMPN ---
Subjective Subjective Date of Service: 01/13/24 Interval History: Tolerated thoracentesis without issues. Minimal change in respiratory effort Review of Systems Denies chest pain Admits to shortness of breath that is improved Denies nausea vomiting diarrhea Physical Exam Vital Signs: Vital Signs: Last Vital Signs Temp 97.4 F 01/13/24 11:06 Pulse 79 01/13/24 11:06 Resp 17 01/13/24 11:06 BP 115/85 01/13/24 11:06 Pulse Ox 93 01/13/24 11:06 O2 Del Method Nasal Cannula 01/13/24 11:06 O2 Flow Rate 3 01/13/24 11:06 Oxygen Flow Rate 6 01/08/24 13:14 BMI result Body Mass Index 33.1 Const: Other: Awake alert no acute distress Resp: Other: Diminished at bases with scattered expiratory wheezes Cardio: Other: No S4; positive S1-S2; no S3 murmurs rubs or gallops GI: Other: Soft nontender nondistended normoactive bowel sounds Extrem: Other: No edema bilaterally Objective Data Active Medications Acetaminophen (Acetaminophen 325 Mg Tablet) 650 mg PO Q6H PRN PRN Reason: Pain, Mild (Pain Scale 1-3), fever or headache Acetazolamide (Acetazolamide 250 Mg Tablet) 250 mg PO DAILY [facility] [place] Last Admin: 01/13/24 08:03 Dose: 250 mg Documented By: TIAGO Albuterol Sulfate (Albuterol Sulfate 90 Mcg 8 Gm Inhaler) 2 puff INHALE Q6H PRN PRN Reason: for wheezing Albuterol/Ipratropium (Albuterol/Iprat 2.5/0.5mg 3 Ml Ampul.Neb) 3 ml INHALE RQ4H WHILE AWAKE PRN PRN Reason: Shortness of Breath/Wheezing Apixaban (Apixaban 5 Mg Tablet) 5 mg PO BID [facility] [place] Last Admin: 01/13/24 08:03 Dose: 5 mg Documented By: TIAGO Ascorbic Acid (Ascorbic Acid 500 Mg Tablet) 500 mg PO BID [facility] [place] Last Admin: 01/13/24 08:03 Dose: 500 mg Documented By: TIAGO Atorvastatin Calcium (Atorvastatin Calcium 20 Mg Tablet) 20 mg PO DAILY [facility] [place] Last Admin: 01/13/24 08:04 Dose: 20 mg Documented By: TIAGO Benzocaine (Throat Lozenge, Medicated Lozenge) 1 lozenge MUCOUS MEM Q2H PRN PRN Reason: Sore Throat Last Admin: 01/09/24 17:45 Dose: 1 lozenge Documented By: ERVIN Calcium Carbonate (Calcium Carbonate 750 Mg Tab.Chew) 750 mg PO Q4H PRN PRN Reason: Heartburn Levalbuterol HCl 1.25 mg/ (Ipratropium [place] 0.5 mg) 0 mg INHALE RQID [facility] [place] Last Admin: 01/13/24 11:05 Dose: 1 dose Documented By: ANA Cyanocobalamin (Cyanocobalamin (Vitamin B-12) 1,000 Mcg Tablet) 1,000 mcg PO DAILY [facility] [place] Last Admin: 01/13/24 08:04 Dose: 1,000 mcg Documented By: TIAGO Diltiazem HCl (Diltiazem Hcl Cd 180 Mg Cap.Er.24h) 180 mg PO DAILY [facility] [place]; Protocol Last Admin: 01/13/24 08:04 Dose: 180 mg Documented By: TIAGO Fluticasone Propionate (Fluticasone Propionate Nasal 16 Gm [place]) 1 spray NOSTRIL-B DAILY PRN PRN Reason: Allergy Symptoms Fluticasone/Umeclidinium/Vilanterol (Fluticasone/Umeclidinium/Vilanterol 100/62.5/25 Blst.W.Dev) 1 puff INHALE RDAILY [facility] [place] Last Admin: 01/13/24 07:40 Dose: 1 puff Documented By: ANA Furosemide (Furosemide 40 Mg/4 Ml Vial) 40 mg IVPUSH DAILY [facility] [place]; Protocol Last Admin: 01/13/24 08:03 Dose: 40 mg Documented By: TIAGO Glucose (Glucose Gel 15 Gm Gel..Gram.) 15 gm PO Q15M PRN; Protocol PRN Reason: per Hypoglycemia Standing Ord. Dextrose (D10) 250 mls @ 750 mls/hr IV Q15M PRN; Protocol PRN Reason: per Hypoglycemia Standing Ord. Ceftriaxone Sodium 1 gm/ (Sodium Chloride) 50 mls @ 100 mls/hr IV Q24H [facility] [place] Last Admin: 01/13/24 12:44 Dose: 100 mls/hr Documented By: TIAGO Azithromycin 500 mg/ Sodium (Chloride) 250 mls @ 125 mls/hr IV Q24H [facility] [place] Last Infusion: 01/12/24 17:04 Dose: Infused Documented By: TIAGO Insulin Human Lispro (Insulin Lispro 100 Unit/Ml 3 Ml Vial) 0 unit SUBCUT QIDACHS [facility] [place]; Protocol Last Admin: 01/13/24 12:43 Dose: 2 unit Documented By: TIAGO Isosorbide Mononitrate (Isosorbide Mononitrate 30 Mg Tab.Er.24h) 30 mg PO DAILY [facility] [place]; Protocol Last Admin: 01/13/24 08:04 Dose: 30 mg Documented By: TIAGO Magnesium Hydroxide (Milk Of Magnesia 30 Ml Oral.Susp) 30 ml PO DAILY PRN PRN Reason: Constipation Last Admin: 01/11/24 09:15 Dose: 30 ml Documented By: TIAGO Melatonin (Melatonin 3 Mg Tablet) 6 mg PO BEDTIME PRN PRN Reason: Insomnia Metoprolol Tartrate (Metoprolol Tartrate 50 Mg Tablet) 50 mg PO BID [facility] [place]; Protocol Last Admin: 01/13/24 08:03 Dose: 50 mg Documented By: TIAGO Potassium Chloride (Potassium Chloride Er 20 Meq Tab.Er.Prt) 20 meq PO Q48H [facility] [place] Last Admin: 01/12/24 20:53 Dose: 20 meq Documented By: PARAG Prednisone (Prednisone 20 Mg Tablet) 40 mg PO DAILY [facility] [place] Last Admin: 01/13/24 08:03 Dose: 40 mg Documented By: TIAGO Sodium Chloride (0.9 % Sodium Chloride Flush 3 Ml Syringe) 3 ml IVFLUSH QSHIFT [facility] [place] Last Admin: 01/13/24 08:04 Dose: 3 ml Documented By: TIAGO Vitamin D (Cholecalciferol (Vitamin D3) 25 Mcg Tablet) 25 mcg PO DAILY [facility] [place] Last Admin: 01/13/24 08:03 Dose: 25 mcg Documented By: TIAGO Labs 01/13/24 06:21 01/13/24 06:21 Labs: Laboratory Results - last 24 hr 01/12/24 01/12/24 01/13/24 16:42 21:01 06:21 MCV 95.0 MCH 28.3 MCHC 29.8 L RDW 14.2 Plt Count 202 MPV 11.4 Immature Gran % (Auto) 0.4 Neut % (Auto) 79.1 H Lymph % (Auto) 9.4 L [place] % (Auto) 10.3 Eos % (Auto) 0.6 Baso % (Auto) 0.2 Lymph # (Auto) 1.0 L [place] # (Auto) 1.1 Eos # (Auto) 0.1 Baso # (Auto) 0.0 Abs Immat Gran (auto) 0.04 H Absolute Neuts (auto) 8.6 H Absolute Nucleated RBC 0.000 Nucleated RBC % (auto) 0.0 Anion Gap 10 L Estim Creat Clear Calc 36.4 Estimated GFR 54 POC Glucose 241 H 185 H Fasting Glucose 136 H Calcium 9.2 Total Bilirubin 0.6 AST 13 ALT 9 Alkaline Phosphatase 55 Total Protein 7.0 Albumin 3.5 01/13/24 01/13/24 07:34 11:46 MCV MCH MCHC RDW Plt Count MPV Immature Gran % (Auto) Neut % (Auto) Lymph % (Auto) [place] % (Auto) Eos % (Auto) Baso % (Auto) Lymph # (Auto) [place] # (Auto) Eos # (Auto) Baso # (Auto) Abs Immat Gran (auto) Absolute Neuts (auto) Absolute Nucleated RBC Nucleated RBC % (auto) Anion Gap Estim Creat Clear Calc Estimated GFR POC Glucose 130 H 173 H Fasting Glucose Calcium Total Bilirubin AST ALT Alkaline Phosphatase Total Protein Albumin Microbiology Microbiology Results: Microbiology 01/12/24 11:28 Gram Stain - Final Pleural Fluid Routine Culture - Preliminary No growth to date. Anaerobic Culture - Preliminary No growth to date. Assessment and Plan (1) CHF exacerbation: Status: Acute Assessment and Plan: 88 year old female with persistent atrial fibrillation anticoagulated with Eliquis, heart failure reduced ejection fraction, ood-vmbzbvl-wviokvwfy type 2 diabetes, COPD, chronic hypoxemic respiratory failure on 2.5/3 L at baseline, history of breast cancer, history of lung cancer 2001 admitted for further management of acute CHF exacerbation. 1.HFpEF (acute exacerbation resolved) -appreciate cardiac input -now stable and well compensated -metoprolol/Cardizem/IV Lasix. .. Continue on telemetry -continue Diamox as ordered -follow renals/divalents 2. Pleural effusion -ultrasound-guided thoracentesis done 450 ml obtained -continue empiric ceftriaxone/azithromycin (3) -titrate O2 as tolerated 3.Persistent atrial fibrillation-rate controlled -rate control acceptable at current times -Eliquis -adjust as indicated 4.Iyf-dmunxra-nkalmzmqj type 2 diabetes -lispro correctional scale -adjust as indicated 5.COPD -likely contributed to initial respiratory failure -continue empirical antibiotics as patient producing sputum -titrate O2 as clinically indicated [place] Full code Healthcare proxy-daughterJoan [phone] Requires ongoing hospitalization for empiric treatment for COPD exacerbation as well as follow-up after therapeutic thoracentesis along with ongoing specialty consultation (2) Acute hypoxic on chronic hypercapnic respiratory failure: Status: Acute (3) Chronic atrial fibrillation: Status: Acute Quality Stroke Does the patient have a stroke diagnosis?: No VTE Prior VTE?: No VTE Risk Level:: Medical - moderate - high VTE Device Contraindication: Treatment Not Indicated VTE Drug Contraindication: N/A - Med Ordered
[2024-01-13] MEDS: Azithromycin 500 MG in 0.9 % Sodium Chloride 250 ML 125 MG IV (13:29)
[2024-01-13 15:27] LABS: Albumin Pleural Fluid 1.8
[2024-01-13 15:28] LABS: Total Protein Pleural Fluid 2.7
[2024-01-13 15:29] LABS: Glucose Pleural Fluid 147; LDH Pleural Fluid 137
[2024-01-13 16:26] LABS: Glucose, Whole Blood 183 mg/dL (60-115)
[2024-01-13 21:01] LABS: Glucose, Whole Blood 234 mg/dL (60-115)
[2024-01-14] VITALS (14 sets, daily range): BP systolic 121–158; BP diastolic 58–76; PULSE 68–115; RESP 16–20; TEMP 36.1–37.1; O2SAT 90–100; BMI 33.1
[2024-01-14] MEDS: levalbuterol HCL 1.25 MG, Ipratropium Bromide 0.5 MG INHALE ×4 (07:02→20:15)
[2024-01-14] MEDS: Fluticasone/Umeclidinium/Vilanterol 100/62.5/25 BLST.W.DEV 1 PUFF INHALE (07:37)
[2024-01-14 07:41] LABS: Glucose, Whole Blood 111 mg/dL (60-115)
[2024-01-14] MEDS: Apixaban 5 MG TABLET PO ×2 (08:14→21:31)
[2024-01-14] MEDS: Cholecalciferol (Vitamin D3) 25 MCG TABLET PO (08:14)
[2024-01-14] MEDS: Metoprolol Tartrate 50 MG TABLET PO ×2 (08:14→21:31)
[2024-01-14] MEDS: dilTIAZem HCL CD 180 MG CAP.ER.24H PO (08:14)
[2024-01-14] MEDS: Atorvastatin Calcium 20 MG TABLET PO (08:14)
[2024-01-14] MEDS: acetaZOLAMIDE 250 MG TABLET PO (08:14)
[2024-01-14] MEDS: Ascorbic Acid 500 MG TABLET PO ×2 (08:14→21:31)
[2024-01-14] MEDS: Furosemide 40 MG/4 ML VIAL IVPUSH (08:15)
[2024-01-14] MEDS: predniSONE 20 MG TABLET 40 MG PO (08:15)
[2024-01-14] MEDS: Isosorbide Mononitrate 30 MG TAB.ER.24H PO (08:15)
[2024-01-14] MEDS: 0.9 % Sodium Chloride Flush 3 ML SYRINGE IVFLUSH ×2 (08:15→21:32)
[2024-01-14] MEDS: Cyanocobalamin (Vitamin B-12) 1,000 MCG TABLET 1000 MCG PO (08:15)
--- NOTE | 2024-01-14 11:09 | PM.PNCARD ---
Subjective Subjective Date of Service: 01/14/24 Interval history: Underwent thoracentesis. She states she is actually feeling better. Review of Systems Review of Systems Yes all other systems are reviewed and are negative Constitutional: Reports as per HPI and Reports no additional constitutional complaints Eyes: Reports as per HPI and Denies no additional eye complaints Denies system reviewed and no additional complaints, except as documented and Reports as per HPI Cardiovascular: Reports as per HPI, Reports no additional cardiovascular complaints, Denies acrocyanosis, Denies cool extremities, Denies chest pain, Denies leg edema, Denies lightheadedness, Denies palpitations and Denies dyspnea Respiratory: Reports as per HPI, Denies no additional respiratory complaints and Denies dyspnea Gastrointestinal: Reports as per HPI and Denies no additional gastrointestinal complaints Genitourinary: Reports as per HPI Musculoskeletal: Reports no additional musculoskeletal complaints and Reports as per HPI Skin/Breast: Reports system reviewed and no additional complaints, except as docu Reports system reviewed and no additional complaints, except as documented and Reports as per HPI Psychiatric: Reports no additional psychiatric complaints and Reports as per HPI Endocrine: Reports no additional endocrine complaints, Reports as per HPI and Denies palpitations Hematologic/Lymphatic: Reports no additional hematologic/lymphatic complaints and Reports as per HPI Allergic/Immunologic: Reports no additional allergic/immunologic complaints and Reports as per HPI Physical Exam Vital Signs: Last Vital Signs Temp 97.7 F 01/14/24 07:27 Pulse 88 01/14/24 09:00 Resp 20 01/14/24 07:27 BP 135/76 01/14/24 09:00 Pulse Ox 96 01/14/24 09:00 O2 Del Method Nasal Cannula 01/14/24 07:27 O2 Flow Rate 2 01/14/24 07:27 Oxygen Flow Rate 6 01/08/24 13:14 BMI result Body Mass Index 33.1 Const General: comfortable and no acute distress Orientation/consciousness: patient oriented x3 HEENT Other: Unremarkable Head: Yes normal to inspection Neck Neck: Yes normal visual inspection Chest Chest palpation & inspection: normal inspection of the chest Resp Auscultation: clear to auscultation bilaterally Cardio Palpation: normal PMI Heart sounds: S1 normal heart sound present, S2 normal heart sound present, no gallops, no murmurs and no rubs GI Palpation (GI): Soft to palpation Back/Spine/Pelvis Other: unremarkable Skin General skin exam: no rashes or lesions noted Neuro General: patient oriented x3 Extrem General: Yes normal to inspection Psych Mental Status: mental status grossly normal Objective Labs and Meds 01/13/24 06:21 01/13/24 06:21 Lab results: Laboratory Results - last 24 hr 01/12/24 01/13/24 01/13/24 11:28 11:46 16:20 POC Glucose 173 H 183 H Pleural Total Protein 2.7 Pleural Albumin 1.8 Pleural LDH 137 Pleural Glucose 147 01/13/24 01/14/24 20:57 07:23 POC Glucose 234 H 111 Pleural Total Protein Pleural Albumin Pleural LDH Pleural Glucose Progress Note: A&P Assessment and plan (1) Acute hypoxic on chronic hypercapnic respiratory failure: Status: Acute Plan Pertinent data reviewed. On the echocardiogram, LVEF is 50-55%. Biatrial enlargement. Severely reduced RV systolic function. Ajvb-po-ufofclac aortic stenosis. Moderate pulmonary hypertension with mildly elevated right atrial pressure. Trivial pericardial effusion. Cardiac BNP is 224. Not too different from her baseline and in fact lower than before. In the chest CT scan, moderate to large loculated right pleural effusion. Small area of consolidation in the right upper lobe and patchy opacities in the right lower lobe. Cardiomegaly/pulmonary hypertension. Overall, multifactorial but she does not seem to be in profound heart failure. There is no evidence of JVD, pulmonary congestion or leg swelling. Could be just a combination of her advanced lung disease as well as cardiac issues. Empiric diuretics reasonable. She is also on Diamox. Antibiotics, steroids. She underwent thoracentesis and after that, she states she is remarkably better and lung sounds are also much better. Hence that might be playing a role. For the atrial fibrillation, she is on diltiazem, metoprolol and Eliquis. Discussed with Dr. Duke. Total time spent including review of data, counseling, documentation, coordination of care-44 minutes. Time Spent With Patient Time: Total time managing care of this patient today ____ minutes. Progress Note: Quality Stroke Does the patient have a stroke diagnosis?: No Procedures Date of Service Date of Service: 01/14/24
[2024-01-14 11:31] LABS: Glucose, Whole Blood 178 mg/dL (60-115)
[2024-01-14] MEDS: Insulin Lispro 100 UNIT/ML 3 ML VIAL SUBCUT ×3 (12:30→21:55)
--- NOTE | 2024-01-14 14:06 | P.PNIM_ITS ---
Subjective Subjective Date of Service: 01/14/24 Interval History: Markedly improved after tap. Still with some mild wheezing Review of Systems Denies chest pain Admits to shortness of breath that is improved Denies nausea vomiting diarrhea Physical Exam 2 Vital Signs: Vital Signs: Last Vital Signs Temp 97.6 F 01/14/24 11:21 Pulse 80 01/14/24 11:21 Resp 20 01/14/24 11:21 BP 121/58 L 01/14/24 11:21 Pulse Ox 100 01/14/24 11:21 O2 Del Method Nasal Cannula 01/14/24 11:21 O2 Flow Rate 2.5 01/14/24 11:21 Oxygen Flow Rate 6 01/08/24 13:14 BMI result Body Mass Index 33.1 Const: Other: Awake alert no acute distress Resp: Other: Diminished at bases with scattered expiratory wheezes Cardio: Other: No S4; positive S1-S2; no S3 murmurs rubs or gallops GI: Other: Soft nontender nondistended normoactive bowel sounds Extrem: Other: No edema bilaterally Objective Data Active Medications Acetaminophen (Acetaminophen 325 Mg Tablet) 650 mg PO Q6H PRN PRN Reason: Pain, Mild (Pain Scale 1-3), fever or headache Acetazolamide (Acetazolamide 250 Mg Tablet) 250 mg PO DAILY [facility] Last Admin: 01/14/24 08:14 Dose: 250 mg Documented By: BARBARA Albuterol Sulfate (Albuterol Sulfate 90 Mcg 8 Gm Inhaler) 2 puff INHALE Q6H PRN PRN Reason: for wheezing Albuterol/Ipratropium (Albuterol/Iprat 2.5/0.5mg 3 Ml Ampul.Neb) 3 ml INHALE RQ4H WHILE AWAKE PRN PRN Reason: Shortness of Breath/Wheezing Apixaban (Apixaban 5 Mg Tablet) 5 mg PO BID [facility] Last Admin: 01/14/24 08:14 Dose: 5 mg Documented By: BARBARA Ascorbic Acid (Ascorbic Acid 500 Mg Tablet) 500 mg PO BID [facility] Last Admin: 01/14/24 08:14 Dose: 500 mg Documented By: BARBARA Atorvastatin Calcium (Atorvastatin Calcium 20 Mg Tablet) 20 mg PO DAILY [facility] Last Admin: 01/14/24 08:14 Dose: 20 mg Documented By: BARBARA Benzocaine (Throat Lozenge, Medicated Lozenge) 1 lozenge MUCOUS MEM Q2H PRN PRN Reason: Sore Throat Last Admin: 01/09/24 17:45 Dose: 1 lozenge Documented By: ERVIN Calcium Carbonate (Calcium Carbonate 750 Mg Tab.Chew) 750 mg PO Q4H PRN PRN Reason: Heartburn Levalbuterol HCl 1.25 mg/ (Ipratropium [place] 0.5 mg) 0 mg INHALE RQID [facility] Last Admin: 01/14/24 11:26 Dose: 2.5 dose Documented By: NICHOLAS Cyanocobalamin (Cyanocobalamin (Vitamin B-12) 1,000 Mcg Tablet) 1,000 mcg PO DAILY [facility] Last Admin: 01/14/24 08:15 Dose: 1,000 mcg Documented By: BARBARA Diltiazem HCl (Diltiazem Hcl Cd 180 Mg Cap.Er.24h) 180 mg PO DAILY [facility]; Protocol Last Admin: 01/14/24 08:14 Dose: 180 mg Documented By: BARBARA Fluticasone Propionate (Fluticasone Propionate Nasal 16 Gm Mather) 1 spray NOSTRIL-B DAILY PRN PRN Reason: Allergy Symptoms Fluticasone/Umeclidinium/Vilanterol (Fluticasone/Umeclidinium/Vilanterol 100/62.5/25 Blst.W.Dev) 1 puff INHALE RDAILY [facility] Last Admin: 01/14/24 07:37 Dose: 1 puff Documented By: MITALI Furosemide (Furosemide 40 Mg/4 Ml Vial) 40 mg IVPUSH DAILY [facility]; Protocol Last Admin: 01/14/24 08:15 Dose: 40 mg Documented By: BARBARA Glucose (Glucose Gel 15 Gm Gel..Gram.) 15 gm PO Q15M PRN; Protocol PRN Reason: per Hypoglycemia Standing Ord. Dextrose (D10) 250 mls @ 750 mls/hr IV Q15M PRN; Protocol PRN Reason: per Hypoglycemia Standing Ord. Ceftriaxone Sodium 1 gm/ (Sodium Chloride) 50 mls @ 100 mls/hr IV Q24H [facility] Last Infusion: 01/13/24 13:37 Dose: Infused Documented By: TIAGO Azithromycin 500 mg/ Sodium (Chloride) 250 mls @ 125 mls/hr IV Q24H [facility] Last Infusion: 01/13/24 16:08 Dose: Infused Documented By: TIAGO Insulin Human Lispro (Insulin Lispro 100 Unit/Ml 3 Ml Vial) 0 unit SUBCUT QIDACHS [facility]; Protocol Last Admin: 01/14/24 07:45 Dose: Not Given Documented By: BARBARA Non-Admin Reason: No Insulin Coverage Isosorbide Mononitrate (Isosorbide Mononitrate 30 Mg Tab.Er.24h) 30 mg PO DAILY [facility]; Protocol Last Admin: 01/14/24 08:15 Dose: 30 mg Documented By: BARBARA Magnesium Hydroxide (Milk Of Magnesia 30 Ml Oral.Susp) 30 ml PO DAILY PRN PRN Reason: Constipation Last Admin: 01/11/24 09:15 Dose: 30 ml Documented By: TIAGO Melatonin (Melatonin 3 Mg Tablet) 6 mg PO BEDTIME PRN PRN Reason: Insomnia Methylprednisolone Sodium Succinate (Methylprednisolone Sod Succ 125 Mg/2 Ml Vial) 60 mg IVPUSH Q12H [facility] Metoprolol Tartrate (Metoprolol Tartrate 50 Mg Tablet) 50 mg PO BID [facility]; Protocol Last Admin: 01/14/24 08:14 Dose: 50 mg Documented By: BARBARA Potassium Chloride (Potassium Chloride Er 20 Meq Tab.Er.Prt) 20 meq PO Q48H [facility] Last Admin: 01/12/24 20:53 Dose: 20 meq Documented By: PARAG Sodium Chloride (0.9 % Sodium Chloride Flush 3 Ml Syringe) 3 ml IVFLUSH QSHIFT [facility] Last Admin: 01/14/24 08:15 Dose: 3 ml Documented By: BARBARA Vitamin D (Cholecalciferol (Vitamin D3) 25 Mcg Tablet) 25 mcg PO DAILY [facility] Last Admin: 01/14/24 08:14 Dose: 25 mcg Documented By: BARBARA Labs 01/13/24 06:21 01/13/24 06:21 Labs: Laboratory Results - last 24 hr 01/12/24 01/13/24 01/13/24 11:28 16:20 20:57 POC Glucose 183 H 234 H Pleural Total Protein 2.7 Pleural Albumin 1.8 Pleural LDH 137 Pleural Glucose 147 08/15/24 08/15/24 07:23 11:15 POC Glucose 111 178 H Pleural Total Protein Pleural Albumin Pleural LDH Pleural Glucose Microbiology Microbiology Results: Microbiology 01/12/24 11:28 Gram Stain - Final Pleural Fluid Routine Culture - Final No growth after 2 days Anaerobic Culture - Preliminary No growth to date. Assessment and Plan (1) Chronic atrial fibrillation: Status: Acute (2) COPD (chronic obstructive pulmonary disease): Status: Acute Quality Stroke Does the patient have a stroke diagnosis?: No VTE Prior VTE?: No VTE Risk Level:: Medical - moderate - high VTE Device Contraindication: Treatment Not Indicated VTE Drug Contraindication: N/A - Med Ordered
[2024-01-14] MEDS: Azithromycin 500 MG in 0.9 % Sodium Chloride 250 ML 125 MG IV (14:44)
[2024-01-14] MEDS: cefTRIAXone sodium 1 GM in 0.9 % Sodium Chloride 50 ML IV (14:44)
[2024-01-14] MEDS: methylPREDNISolone Sod Succ 125 MG/2 ML VIAL 60 MG IVPUSH (14:50)
[2024-01-14 16:08] LABS: Glucose, Whole Blood 203 mg/dL (60-115)
[2024-01-14 20:39] LABS: Glucose, Whole Blood 277 mg/dL (60-115)
[2024-01-14] MEDS: Potassium Chloride ER 20 MEQ TAB.ER.PRT PO (21:31)
[2024-01-15] MEDS: methylPREDNISolone Sod Succ 125 MG/2 ML VIAL 60 MG IVPUSH (03:05)
[2024-01-15 03:55] VITALS: BP 142/64; PULSE 80; RESP 18; TEMP 36.6; O2SAT 93
[2024-01-15 05:14] VITALS: BMI 33.5
[2024-01-15 07:50] VITALS: BP 144/66; PULSE 86; RESP 20; TEMP 36.5; O2SAT 96
[2024-01-15] MEDS: Fluticasone/Umeclidinium/Vilanterol 100/62.5/25 BLST.W.DEV 1 PUFF INHALE (07:51)
[2024-01-15 07:53] VITALS: PULSE 86; RESP 20; O2SAT 94
[2024-01-15] MEDS: levalbuterol HCL 1.25 MG, Ipratropium Bromide 0.5 MG INHALE ×2 (07:53→11:08)
[2024-01-15 07:59] LABS: Glucose, Whole Blood 179 mg/dL (60-115)
[2024-01-15 08:05] LABS: Hematocrit 39.1 % (37.0-47.0); Imm Gran Abs Auto 0.04 X10*3/uL (0.00-0.03); Imm Gran Pct Auto 0.4 % (0.0-0.4); Lymphocytes Absolute Auto 0.5 X10*3/uL (1.2-4.9); Lymphocytes Percent Auto 4.9 % (20-40); MANUAL DIFF FLAG SCAN; Mean Corpuscular HGB Conc 30.7 g/dl (31.0-35.0); Mean Corpuscular Hemoglobin 29.1 pg (27.0-33.0); Mean Corpuscular Volume 94.7 fL (80.0-98.0); Mean Platelet Volume 11.2 fL (9.4-12.3); Monocytes Absolute Auto 0.1 X10*3/uL (0.1-1.2); Monocytes Percent Auto 0.8 % (2-11); Neutrophils Percent Auto 93.9 % (45-73); Platelet Count 196 X10*3/uL (160-400); Red Blood Count 4.13 X10*6/uL (4.20-5.50); Red Cell Distribution Width 14.2 % (11.0-16.0); SCAN SMEAR FLAG 1; White Blood Count 9.6 X10*3/uL (4.8-10.8)
[2024-01-15] MEDS: Cyanocobalamin (Vitamin B-12) 1,000 MCG TABLET 1000 MCG PO (08:20)
[2024-01-15] MEDS: Apixaban 5 MG TABLET PO (08:20)
[2024-01-15] MEDS: 0.9 % Sodium Chloride Flush 3 ML SYRINGE IVFLUSH (08:20)
[2024-01-15] MEDS: Insulin Lispro 100 UNIT/ML 3 ML VIAL SUBCUT ×2 (08:20→11:51)
[2024-01-15] MEDS: Furosemide 40 MG/4 ML VIAL IVPUSH (08:20)
[2024-01-15] MEDS: acetaZOLAMIDE 250 MG TABLET PO (08:21)
[2024-01-15] MEDS: dilTIAZem HCL CD 180 MG CAP.ER.24H PO (08:21)
[2024-01-15] MEDS: Atorvastatin Calcium 20 MG TABLET PO (08:21)
[2024-01-15] MEDS: Isosorbide Mononitrate 30 MG TAB.ER.24H PO (08:21)
[2024-01-15] MEDS: Cholecalciferol (Vitamin D3) 25 MCG TABLET PO (08:21)
[2024-01-15] MEDS: Ascorbic Acid 500 MG TABLET PO (08:21)
[2024-01-15] MEDS: Metoprolol Tartrate 50 MG TABLET PO (08:21)
[2024-01-15 08:26] LABS: Alanine Aminotransferase 10 U/L (0-31); Albumin Level 3.6 g/dL (3.5-5.0); Alkaline Phosphatase 48 U/L (39-117); Anion Gap 14 (12-20); Aspartate Amino Transferase 12 U/L (5-31); Bilirubin Total 0.5 mg/dL (0.0-1.0); Blood Urea Nitrogen 45 mg/dL (9-16); Calcium 9.4 mg/dL (8.4-10.2); Carbon Dioxide 33 mmol/L (22-29); Chloride 100 mmol/L (96-108); Creatinine Clr Calc Pharmacy 38.9; Estimated Glomerular Filt Rate 58; Glucose Fasting 190 mg/dL (60-99); Potassium 4.7 mmol/L (3.3-5.1); Sodium 142 mmol/L (135-145); Total Protein 6.9 g/dL (6.5-8.0)
[2024-01-15 08:33] LABS: SLIDE REVIEW VERIFIED
--- NOTE | 2024-01-15 09:36 | MHC.CM.PN ---
IMM 01/15/24, PT MEDICALLY CLEARED FOR DC HOME W/NEW [facility] FOR HOME PT, CM CONTACTED PT'S DTR GRIFFIN AT 9:32AM TO REQUEST RIDE HOME AND ASK HER TO CALL PT'S CELL PHONE PER PT REQUEST, [facility] WILL TRANSPORT AT APPROXIMATELY 1PM.
[2024-01-15 10:48] VITALS: BP 125/74; PULSE 96; RESP 20; TEMP 36.8; O2SAT 93
[2024-01-15 11:09] VITALS: PULSE 96; RESP 20; O2SAT 94
--- NOTE | 2024-01-15 11:27 | P.DS_ITS ---
DS: Providers Provider Date of Service: 01/15/24 Date of admission: 01/08/24 15:34 Primary care physician: Radha Ramsey MD Consults: 01/10/24 14:58 Consult to Pulmonology Routine Consulting Provider: [facility] Pul[facility]ology Services Reason for consultation: acute hypoxemic respiratroy failure sec to chf Has provider been notified: No 01/10/24 14:59 Consult to Cardiology Routine Consulting Provider: [facility] Reason for consultation: chf excerebation Has provider been notified: No DS: Diagnosis Discharge Diagnosis (1) Chronic atrial fibrillation: Status: Acute (2) COPD (chronic obstructive pulmonary disease): Status: Acute DS: Summary Hospital Course Hospital Course: History of presenting illness: Date of Service: 01/08/24 Attending physician on admission: Marty Contreras Chief Complaint: sob 88 year old female with persistent atrial fibrillation anticoagulated with Eliquis, heart failure reduced ejection fraction, [id number] type 2 diabetes, COPD, chronic hypoxemic respiratory failure on 2.5/3 L at baseline, history of breast cancer, history of lung cancer 2002 presented to the ED earlier today accompanied by her daughter for evaluation of dyspnea that has been ongoing for the last 2 weeks. She reports constant dyspnea that is worse with exertion and speaking and occasionally causes lightheadedness. She has also reported mild chest pressure that is nonradiating that has also been ongoing for 2 weeks. She states she sleeps with 2 pillows at baseline, but does have witnessed orthopnea on examination. Denies any PND. She reports she has gained 5 lb in the last 4 days. Has been compliant with diuretics. No increase in albuterol usage. Since arrival, has been hypoxic to 83% now maintaining oximetry 92% on 6 L but is noted to desaturate into the 80s with any movement or speaking. Vitals are otherwise stable. Hematology studies unremarkable. Renal function baseline, electrolyte levels normal, except for CO2 of 38. VBG pending. Troponin 7.9, BNP 398. Negative for COVID, flu, RSV. Chest x-ray shows bilateral pleural effusions, cardiomegaly. EKG shows atrial fibrillation, rate controlled at 80, without any significant changes from prior EKGs. In the ED, has received 40 mg IV Lasix. She will be admitted for further management of CHF exacerbation. Hospital course: 88 year old female with history of persistent atrial fibrillation on Eliquis, heart failure reduced ejection fraction, [id number] type 2 diabetes, COPD, chronic hypoxemic respiratory failure on 2.5/3 L at baseline, history of breast cancer, history of lung cancer 2002 admitted for further management of shortness of breath diagnosed to have acute on chronic hypoxic respiratory failure, likely multifactorial due to acute CHF exacerbation,treated with IV Lasix, Diamox was followed closely by wind turbine design engineer Dr. Knutson, it was felt that patient has mild CHF without overt sign and symptoms of CHF with no leg edema, no JVD, she was noted to have right pleural effusion therefore underwent ultrasound-guided thoracocentesis 450 mL fluid was drained postprocedure patient felt better, she was empirically treated with a course of antibiotics, it was felt that patient has some component of COPD exacerbation as well therefore treated with IV steroids updraft treatment blood sugars were monitored closely, patient oxygenation improved currently on 2.5 L of baseline oxygen, she was also evaluated by senior manager quality assurance Dr. Burch recommend to discharge patient on short course of steroids and Diamox 250 mg daily since patient is hemodynamically stable she is being discharged home on all baseline medications and recommended to take prednisone tapering dose continue throat lozenges and returned to check with recurrent symptoms prior to discharge patient was evaluated by Physical therapy and they recommend home PT due to shortness of breath with exertion and home safety eval and evaluation. Patient noted to have elevated blood sugars likely due to steroids recommend to follow diabetic diet. In regard to Persistent atrial fibrillation-she has been continued on all home medications her heart rate remained stable recommend to continue Eliquis Time Attestation Discharge Coordination Time (in mins): 40 Quality: Safe Use of Opioids Does Pt have an Active Cancer Diagnosis on the Problem List?: No Quality: Stroke Does the patient have a stroke diagnosis?: No Physical Exam Vital Signs: Vital Signs: Last Vital Signs Temp 98.2 F 01/15/24 10:48 Pulse 96 01/15/24 11:09 Resp 20 01/15/24 11:09 BP 125/74 01/15/24 10:48 Pulse Ox 93 01/15/24 10:48 O2 Del Method Nasal Cannula 01/15/24 10:48 O2 Flow Rate 2.5 01/15/24 10:48 Oxygen Flow Rate 6 01/08/24 13:14 BMI result Body Mass Index 33.5 Const: Other: General awake alert x3, resting comfortably in no acute distress. Neck supple no JVD. CVS irregular rate rhythm, Respiratory lungs clear to auscultation, diminished at bases, no respiratory distress, no wheeze, no rhonchi. Gastrointestinal abdomen soft, nontender, bowel sounds audible. Extremities no edema. Neuro non focal Skin no rash Psych appropriate affect DS: Data Data Completed and Pending Completed studies during hospitalization [Text1]: Pending at discharge 01/11/24 16:35 Cytology [PTH] Urgent Labs on day of discharge: Laboratory Results - last 24 hr 01/14/24 01/14/24 01/14/24 11:15 16:02 20:34 WBC RBC Hgb Hct MCV MCH MCHC RDW Plt Count MPV Immature Gran % (Auto) Neut % (Auto) Lymph % (Auto) [place] % (Auto) Eos % (Auto) Baso % (Auto) Lymph # (Auto) [place] # (Auto) Eos # (Auto) Baso # (Auto) Abs Immat Gran (auto) Absolute Neuts (auto) Absolute Nucleated RBC Nucleated RBC % (auto) Smear Tech's Comments Sodium Potassium Chloride Carbon Dioxide Anion Gap BUN Creatinine Estim Creat Clear Calc Estimated GFR POC Glucose 178 H 203 H 277 H Fasting Glucose Calcium Total Bilirubin AST ALT Alkaline Phosphatase Total Protein Albumin 01/15/24 01/15/24 07:49 07:58 WBC 9.6 RBC 4.13 L Hgb 12.0 Hct 39.1 MCV 94.7 MCH 29.1 MCHC 30.7 L RDW 14.2 Plt Count 196 MPV 11.2 Immature Gran % (Auto) 0.4 Neut % (Auto) 93.9 H Lymph % (Auto) 4.9 L [place] % (Auto) 0.8 L Eos % (Auto) 0.0 Baso % (Auto) 0.0 Lymph # (Auto) 0.5 L [place] # (Auto) 0.1 Eos # (Auto) 0.0 Baso # (Auto) 0.0 Abs Immat Gran (auto) 0.04 H Absolute Neuts (auto) 9.0 H Absolute Nucleated RBC 0.000 Nucleated RBC % (auto) 0.0 Smear Tech's Comments VERIFIED Sodium 142 Potassium 4.7 Chloride 100 Carbon Dioxide 33 H Anion Gap 14 BUN 45 H Creatinine 0.92 Estim Creat Clear Calc 38.9 Estimated GFR 58 POC Glucose 179 H Fasting Glucose 190 H Calcium 9.4 Total Bilirubin 0.5 AST 12 ALT 10 Alkaline Phosphatase 48 Total Protein 6.9 Albumin 3.6 Preliminary micro results at discharge 01/12/24 11:28 Anaerobic Culture - Preliminary Pleural Fluid No growth to date. Discharge Plan Discharge Anticipated Discharge Date/Time: 01/15/24 11:25 Patient Disposition: Home Health Service Discharge Diagnosis: Acute on chronic hypoxic respiratory failure Referrals: [facility] [Outside] - 1 Day (HOME PHYSICAL THERAPY) Po,Radha Edwards MD [Primary Care Provider] - 1 Week Discharge Medications: New acetazolamide 250 mg Tablet 250 mg PO DAILY Qty: 30 0RF Sore Throat (benzocaine-menth) 15-3.6 mg Lozenge 1 misael mucous membrane Q2H PRN (Reason: Sore Throat) Qty: 18 0RF Antacid Ext Str (calcium carb) 300 mg (750 mg) Tablet,Chewable 2.5 tab PO Q4H PRN (Reason: Heartburn) Qty: 60 0RF prednisone 10 mg tablet 10 mg PO DIRECTED Qty: 10 0RF Rx Instructions: see taper instructions; 20 mg daily x3 days, 10 mg daily x3 days ipratropium-albuterol 0.5 mg-3 mg(2.5 mg base)/3 mL Solution For Nebulization 3 ml inhalation Q6H PRN (Reason: Shortness Of Breath/Wheezing) Qty: 180 0RF Continued atorvastatin 20 mg tablet 20 mg PO DAILY Qty: 90 3RF diltiazem HCl 180 mg capsule,extended release 24hr 180 mg PO DAILY Qty: 90 2RF furosemide 40 mg tablet 40 mg PO DAILY 90 Days Qty: 90 3RF potassium chloride 20 mEq tablet,ER particles/crystals 20 meq PO Q2D Qty: 45 3RF isosorbide mononitrate 30 mg tablet extended release 24 hr 30 mg PO DAILY 90 Days Qty: 90 3RF Trelegy Ellipta 100-62.5-25 mcg blister with device 1 ea PO DAILY Qty: 60 11RF Eliquis 5 mg tablet 5 mg PO BID 90 Days Qty: 180 3RF metoprolol tartrate 50 mg tablet 50 mg PO BID Qty: 180 3RF albuterol sulfate 90 mcg/actuation HFA aerosol inhaler 2 puff inhalation Q6H PRN (Reason: for wheezing) Qty: 8.5 0RF cyanocobalamin (vitamin B-12) [Vitamin B-12] 1,000 mcg Tablet 1,000 mcg PO DAILY ascorbic acid (vitamin C) [Vitamin C] 500 mg Tablet 500 mg PO BID cholecalciferol (vitamin D3) [Vitamin D3] 25 mcg (1,000 unit) Capsule 25 mcg PO DAILY fluticasone propionate 50 mcg/actuation spray,suspension 1 spray intranasal DAILY PRN (Reason: Allergy Symptoms) (DME) Aerochamber MV Spacer See Rx Instructions .Route Qty: 1 0RF Rx Instructions: As directed Discharge Orders: Discharge Order (Routine); Ordered 01/15/24 Ordered By: Dixon Conrad Diet: Advance to usual diet Activity on Discharge: As tolerated Stand Alone Forms: Patient Portal Discharge page Print Language: Divehi Care Plan Goals: Shortness of breath resolved likely multifactorial, due to mild CHF exacerbation and COPD continue home medications, take acetazolamide 250 mg 1 tablet daily/prednisone 20 mg daily for 3 days followed by 10 mg daily for 3 days Continue all inhalers Returned to check with recurrent symptoms of shortness of breath Health Concerns: Chronic atrial fibrillation continue home medications COPD continue home inhalers Plan of Treatment: Outpatient follow-up with primary care physician call for appointment Outpatient follow-up with senior manager quality assurance Dr. Akers call for appointment in 2- 4 weeks Assessment: As above
[2024-01-15 11:29] LABS: Glucose, Whole Blood 239 mg/dL (60-115)
[2024-01-15] MEDS: cefTRIAXone sodium 1 GM in 0.9 % Sodium Chloride 50 ML IV (13:23)
--- NOTE | 2024-01-16 14:41 | W.MHC.F2F ---
Service Date Service Date: 01/16/24 Encounter Date of encounter: 01/15/24 Reasons for Services Signs and symptoms assessed: Shortness of breath/persistent atrial fibrillation Reason for physical therapy: home safety and mobility Homebound: Leaving the home is medically contraindicated at this time without the asist of a device and/or another person due th the listed conditions above and below. Reason homebound: shortness of breath with minimal effort Certification: Based on the above findings, I certify that this patient is confined to the home and needs intermittent long-term care, physical therapy and/or speech therapy, or continues to need occupational therapy. The patient is under my care, and I have initiated the establishment of the plan of care. The patient will be followed by a physician who will periodically review the plan of care. Time Spent With Patient Time: Total time managing care of this patient today ____ minutes.
[2024-01-20 12:25] LABS: pH Pleural Fluid 7.6
== END 2024-01-15 14:21 | disposition home health service (06) | DRG 291 ==
LOC: HO.ED 14:40 → HO.EDOVER 15:42 → HO.IMC 19:31
PROVIDERS: Hospitalist; Internal Medicine; Physician Assistant Medical; Admitting Provider Physician Assistant; Emergency Provider Emergency Medicine; PCP Internal Medicine; Visit Provider Hospitalist
DX: I11.0 Hypertensive heart disease with heart failure (principal); I50.23 Acute on chronic systolic (congestive) heart failure; J96.21 Acute and chronic respiratory failure with hypoxia; I48.19 Other persistent atrial fibrillation; J91.8 Pleural effusion in other conditions classified elsewhere; I25.10 Atherosclerotic heart disease of native coronary artery without angina pectoris; I35.0 Nonrheumatic aortic (valve) stenosis; I27.20 Pulmonary hypertension, unspecified; E11.9 Type 2 diabetes mellitus without complications; J43.9 Emphysema, unspecified; D64.9 Anemia, unspecified; Z20.822 Contact with and (suspected) exposure to COVID-19; Z85.3 Personal history of malignant neoplasm of breast; Z99.81 Dependence on supplemental oxygen; Z85.118 Personal history of other malignant neoplasm of bronchus and lung; Z87.891 Personal history of nicotine dependence; Z79.01 Long term (current) use of anticoagulants; Z79.899 Other long term (current) drug therapy
CPT/HCPCS: 0241U; 32555; 36415; 71045; 71250; 80048; 80053; 80076; 82042; 82803; 82945; 82947; 83615; 83735; 83880; 83986; 84157; 84484; 85025; 85610; 87070; 87073; 87205; 88112; 88305; 89051; 93005; 93306; 94640; 97162; 99285; J0456; J0696; J1940; J2919

== ENCOUNTER → 2024-01-08 13:17 | Outpatient (BNV) | payer MEDICARE, SELFPAY | PROVIDERS: Admitting Provider Physician Assistant; Emergency Provider Emergency Medicine; PCP Internal Medicine; Visit Provider Internal Medicine Cardiovascular Disease | DX: R42 Dizziness and giddiness (principal) | CPT/HCPCS: 93010 ==

== ENCOUNTER 2024-01-08 15:34 | Outpatient (BNV) | payer MEDICARE, SELFPAY | END 2024-01-12 10:43 | PROVIDERS: Admitting Provider Physician Assistant; Emergency Provider Emergency Medicine; PCP Internal Medicine; Visit Provider Physician Assistant Surgical | DX: J90 Pleural effusion, not elsewhere classified (principal) | CPT/HCPCS: 32555 ==

== ENCOUNTER 2024-01-08 15:34 | Outpatient (BNV) | payer MEDICARE, SELFPAY | END 2024-01-09 11:00 | PROVIDERS: Admitting Provider Physician Assistant; Emergency Provider Emergency Medicine; PCP Internal Medicine; Visit Provider Internal Medicine Cardiovascular Disease | DX: I35.0 Nonrheumatic aortic (valve) stenosis (principal); I34.0 Nonrheumatic mitral (valve) insufficiency; I36.1 Nonrheumatic tricuspid (valve) insufficiency | CPT/HCPCS: 93306 ==

== ENCOUNTER → 2024-01-08 15:34 | Outpatient (BNV) | payer MEDICARE, SELFPAY | PROVIDERS: Admitting Provider Physician Assistant; Emergency Provider Emergency Medicine; PCP Internal Medicine; Visit Provider Internal Medicine | DX: J43.9 Emphysema, unspecified (principal); J96.20 Acute and chronic respiratory failure, unspecified whether with hypoxia or hypercapnia; I50.9 Heart failure, unspecified | CPT/HCPCS: 99223 ==

== ENCOUNTER → 2024-01-08 15:34 | Outpatient (BNV) | payer MEDICARE, SELFPAY | PROVIDERS: Admitting Provider Physician Assistant; Emergency Provider Emergency Medicine; PCP Internal Medicine; Visit Provider Physician Assistant | DX: I50.23 Acute on chronic systolic (congestive) heart failure (principal); I48.20 Chronic atrial fibrillation, unspecified; J43.9 Emphysema, unspecified | CPT/HCPCS: 99223; 99232; 99239; 99499; G0180 ==

== ENCOUNTER → 2024-01-08 15:34 | Outpatient (BNV) | payer MEDICARE, SELFPAY | PROVIDERS: Admitting Provider Physician Assistant; Emergency Provider Emergency Medicine; PCP Internal Medicine; Visit Provider Internal Medicine | DX: J96.01 Acute respiratory failure with hypoxia (principal); J96.12 Chronic respiratory failure with hypercapnia | CPT/HCPCS: 99223; 99233 ==

== ENCOUNTER 2024-02-23 09:22 | Outpatient (REF) | payer MEDICARE, SELFPAY ==
[2024-02-23 13:14] LABS: MANUAL DIFF FLAG NO
[2024-02-23 13:28] LABS: Basophils Percent Auto 0.4 % (0-2); Eosinophils Absolute Auto 0.1 X10*3/uL (0.0-0.4); Eosinophils Percent Auto 0.8 % (0-4); Hematocrit 41.7 % (37.0-47.0); Hemoglobin 12.5 g/dl (12.0-16.0); Imm Gran Abs Auto 0.05 X10*3/uL (0.00-0.03); Imm Gran Pct Auto 0.5 % (0.0-0.4); Lymphocytes Absolute Auto 1.4 X10*3/uL (1.2-4.9); Lymphocytes Percent Auto 14.2 % (20-40); Mean Corpuscular Hemoglobin 28.1 pg (27.0-33.0); Mean Corpuscular Volume 93.7 fL (80.0-98.0); Monocytes Absolute Auto 1.2 X10*3/uL (0.1-1.2); Monocytes Percent Auto 12.9 % (2-11); Neutrophils Absolute Auto 6.8 x10*3/uL (2.0-8.3); Neutrophils Percent Auto 71.2 % (45-73); Platelet Count 196 X10*3/uL (160-400); Red Blood Count 4.45 X10*6/uL (4.20-5.50); Red Cell Distribution Width 14.4 % (11.0-16.0); White Blood Count 9.6 X10*3/uL (4.8-10.8)
[2024-02-23 13:35] LABS: B Type Natriuretic Peptide 372 pg/mL (<100)
[2024-02-23 14:03] LABS: Alanine Aminotransferase 9 U/L (0-31); Alkaline Phosphatase 76 U/L (39-117); Anion Gap 10 (12-20); Aspartate Amino Transferase 22 U/L (5-31); Bilirubin Total 1.2 mg/dL (0.0-1.0); Blood Urea Nitrogen 19 mg/dL (9-16); Calcium 9.1 mg/dL (8.4-10.2); Carbon Dioxide 38 mmol/L (22-29); Chloride 98 mmol/L (96-108); Estimated Glomerular Filt Rate > 60; Glucose Random 135 mg/dL (60-115); Magnesium 2.1 mg/dL (1.6-2.6); Potassium 4.3 mmol/L (3.3-5.1); Sodium 142 mmol/L (135-145); Total Protein 7.5 g/dL (6.5-8.0)
[2024-02-23 16:03] LABS: Estimated Average Glucose 140 mg/dL; Hemoglobin A1C 149.1777 umol/L; Hemoglobin A1c % 6.5 % (<6.0); Total Hemoglobin (HGBA1C) 3125.5746 umol/L
== END 2024-02-23 09:23 | disposition home or self-care (01) ==
LOC: HO.HMGCLDS 09:22
PROVIDERS: PCP Internal Medicine; Visit Provider Internal Medicine
DX: I50.9 Heart failure, unspecified (principal); Z13.1 Encounter for screening for diabetes mellitus
CPT/HCPCS: 36415; 80053; 83036; 83735; 83880; 85025

== ENCOUNTER 2024-03-10 10:14 | Outpatient (AMB) | payer MEDICARE, SELFPAY ==
--- NOTE | 2024-03-10 10:16 | MHC.PC.OV ---
Vital Signs 03/10/24 10:17 Height 5 ft Weight 164 lb BMI 32.0 BP 132/64 Blood Pressure Location Lt brachial Position Sitting Pulse 83 Pulse Source Pulse Oximeter Pulse Oximetry (%) 91 L Oxygen Delivery Method Nasal Cannula Oxygen Flow Rate 2 Intake Visit Reasons: 3 Month F/U Halftone Operator Required: No Allergies ADONIS Inhibitors [Adonis Inhibitors] Allergy (Severe, Verified 03/10/24 10:17) ANGIOEDEMA Sulfa (Sulfonamide Antibiotics) [Sulfa (Sulfonamides)] Allergy (Intermediate, Verified 03/10/24 10:17) CHILLS Tobacco use date assessed: 07/30/23 Fall risk assessment: No Falls in past year Last assessed Fall Risk: 03/10/24 Dental Screening Dental Screen Date: 07/30/23 HPI 3 Month F/U HPI Details 89-year-old obese female with controlled diabetes mellitus patient has history of right breast cancer and mammogram is due, coronary artery disease congestive heart failure hypercholesterolemia hypertension and COPD last seen in October 2023. Review of the notes has been follow-up with cardiology seen in 02/02/2024 chronic atrial fibrillation had COPD exacerbation echocardiogram showing mild to moderate aortic stenosis .. Noted discharge summary in 01/15/2024 atrial fibrillation anticoagulated with Eliquis chronic hypoxic respiratory failure history of lung cancer in 2001 noted to have right pleural effusion thoracentesis done 450 cc of fluid drained empiric treatment with antibiotic discharge on Diamox and prednisone [facility] Medical History (Updated 03/10/24 @ 10:36 by Radha Ramsey MD) Atrial fibrillation History of cancer of upper lobe bronchus or lung Age-related osteoporosis without current pathological fracture History of right breast cancer Mesenteric ischemia Diverticular disease Congestive heart failure Degenerative disc disease Coronary artery disease Obesity (BMI 30-39.9) Peripheral vascular disease Hypercholesterolemia TIA (transient ischemic attack) Anemia Breast cancer Small cell lung cancer, right lower lobe HTN (hypertension) COPD (chronic obstructive pulmonary disease) Surgical History History of lumpectomy of right breast H/O resection of small bowel Family History Father Heart disease Mother Heart disease Brother Multiple myeloma Brother Lung cancer Social History Household Members: Family Housing: Apartment Are you a primary critical care unit nurse to a significant other at home: No Do you presently have visiting nurse or other home services: No Alcohol intake: never Patient Tobacco Use Status: Former Tobacco user Tobacco use type: Cigarette e-Cigarette/Vaping Use: Never Used Second Hand Smoke Exposure: No Advance Directives Date on File: 01/08/24 service: No Current occupational status: retired Current occupational exposures/hazards: No Cognitive needs: Yes (walker) Hearing needs: Yes Vision needs: Yes (glasses) Female Reproductive History Menstrual Age of Menarche: 13 Questionnaire Thrive Questionnaire Date Thrive assessed: 01/09/24 Are you currently unemployed and looking for a job?: Yes AUDIT C Alcohol Use Questionnaire (AUDIT-C) 1. How often do you have a drink containing alcohol?: Monthly or less 2. How many drinks containing alcohol do you have on a typical day when you are drinking?: 1 or 2 3. How often do you have six or more drinks on one occasion?: Never Total Score: 1 DILLON-7 AMB Questionnaire DILLON-7 Date DILLON - 7 assessed: 07/30/23 Source: Developed by Drs. Navin Almeida, Ene Fuentes, James Miller and colleagues, with an educational daniel from [email or web address]. Physical exam (Primary Care) Vital Signs: Last Vital Signs Pulse 83 03/10/24 10:17 BP 132/64 03/10/24 10:17 Pulse Ox 91 L 03/10/24 10:17 Oxygen Delivery Method Nasal Cannula 03/10/24 10:17 Oxygen Flow Rate 2 03/10/24 10:17 BMI result Body Mass Index 32.0 Tobacco/Smoking Status: Tobacco use Status Tobacco use date assessed 07/30/23 03/10/24 10:17 Patient Tobacco Use Status Former Tobacco user 03/10/24 10:17 Tobacco use type Cigarette 03/10/24 10:17 e-Cigarette/Vaping Use Never Used 03/10/24 10:17 Thrive Assessment: Date of Thrive Assessment Date Thrive assessed 01/09/24 03/10/24 10:17 Const General: alert; No acute distress Eyes Conjunctivae: conjunctivae normal Resp Auscultation: clear to auscultation bilaterally Cardio Rate: regular rate Rhythm: regular rhythm GI Inspection: Yes normal to inspection Extrem General: Yes normal to inspection and No edema Coding Level of Care Code Est Pt Level 4 (70788) Complex EM visit Add On G2211 Diagnoses Chronic atrial fibrillation I48.20 Type 2 diabetes mellitus with hyperglycemia E11.65 Congestive heart failure, unspecified HF chronicity, unspecified heart failure type I50.9 Heart failure chronicity: unspecified Heart failure type: unspecified Coronary artery disease involving [place] coronary artery of [place] heart without angina pectoris I25.10 Associated angina: without angina Coronary Disease-Associated Artery/Lesion type: [place] artery [place] vs. transplanted heart: [place] heart Obesity (BMI 30-39.9) E66.9 Hypercholesterolemia E78.00 Essential hypertension I10 Hypertension type: essential hypertension Pulmonary emphysema, unspecified emphysema type J43.9 COPD type: emphysema Emphysema type: unspecified Assessment & Plan Assessment & Plan (1) Chronic atrial fibrillation: Code(s): I48.20 - Chronic atrial fibrillation, unspecified Category: Medical Plan: Continue with anticoagulation with Eliquis twice a day year of renal function. (2) Type 2 diabetes mellitus with hyperglycemia: Code(s): E11.65 - Type 2 diabetes mellitus with hyperglycemia Category: Medical Plan: Decrease the amount of carbohydrate intake, pasta, bread, rice and potatoes are all sugar and that is aside from all the sweet stuff, remember that fruits are good but they are Sweet also. Hemoglobin A1c goal of less than 7.0 diet controlled (3) Congestive heart failure: Code(s): I50.9 - Heart failure, unspecified Category: Medical Qualifiers: Heart failure chronicity: unspecified Heart failure type: unspecified Qualified Code(s): I50.9 - Heart failure, unspecified Plan: Weigh daily, continue with furosemide adjust accordingly (4) Coronary artery disease: Comment: Echocardiogram May 2018 EF 60-65% moderate pulmonary hypertension, echo December 2018 EF 45-50% pulmonary hypertension Code(s): I25.10 - Atherosclerotic heart disease of [place] coronary artery without angina pectoris Category: Medical Qualifiers: Associated angina: without angina Coronary Disease-Associated Artery/Lesion type: [place] artery [place] vs. transplanted heart: [place] heart Qualified Code(s): I25.10 - Atherosclerotic heart disease of [place] coronary artery without angina pectoris Plan: Control the cholesterol, weight, blood pressure, diabetes on anticoagulation (5) Obesity (BMI 30-39.9): Code(s): E66.9 - Obesity, unspecified Category: Medical Plan: Diet and exercise (6) Hypercholesterolemia: Comment: September 2021 Code(s): E78.00 - Pure hypercholesterolemia, unspecified Category: Medical Plan: Avoid fried foods, chicken skin, eggs, butter margarine, pastries and meat. Be it pork or beef they have a lot of cholesterol LDL goal of less than 70 and triglyceride of less than 150 will need retesting (7) HTN (hypertension): Code(s): I10 - Essential (primary) hypertension Category: Medical Qualifiers: Hypertension type: essential hypertension Qualified Code(s): I10 - Essential (primary) hypertension Plan: Continue with blood pressure medication. Decrease salt intake and exercise acetazolamide, diltiazem, metoprolol 50 mg twice a day isosorbide mononitrate (8) COPD (chronic obstructive pulmonary disease): Code(s): J44.9 - Chronic obstructive pulmonary disease, unspecified Category: Medical Qualifiers: COPD type: emphysema Emphysema type: unspecified Qualified Code(s): J43.9 - Emphysema, unspecified Plan: Continue with the inhalers on Trelegy and albuterol as needed Orders: Orders Thyroid Stimulating Hormone 3 Months E11. - Type 2 diabetes mellitus with hyperglycemia Vitamin B12 and Folate 3 Months E11. - Type 2 diabetes mellitus with hyperglycemia Vitamin D 25-OH Total 3 Months E11. - Type 2 diabetes mellitus with hyperglycemia Hemoglobin A1c 3 Months E11. - Type 2 diabetes mellitus with hyperglycemia B Type Natriuretic Peptide 3 Months E11.65 - Type 2 diabetes mellitus with hyperglycemia UA w Microscopic 3 Months E11. - Type 2 diabetes mellitus with hyperglycemia Complete Blood Count Auto Diff 3 Months E11. - Type 2 diabetes mellitus with hyperglycemia Comprehensive Met. Panel 3 Months E11. - Type 2 diabetes mellitus with hyperglycemia Free T4 (Free Thyroxine) 3 Months E11.65 - Type 2 diabetes mellitus with hyperglycemia Lipid Panel 3 Months E11. - Type 2 diabetes mellitus with hyperglycemia, E78.00 - Pure hypercholesterolemia, unspecified Microalbumin, Random (w Creat) 3 Months E11.65 - Type 2 diabetes mellitus with hyperglycemia Creatinine Urine 3 Months E11.65 - Type 2 diabetes mellitus with hyperglycemia
[2024-03-10 10:17] VITALS: BP 132/64; PULSE 83; O2SAT 91; BMI 32.0
== END 2024-03-10 10:52 | disposition home or self-care (01) ==
PROVIDERS: PCP Internal Medicine; Visit Provider Internal Medicine
DX: I48.20 Chronic atrial fibrillation, unspecified (principal); E11.65 Type 2 diabetes mellitus with hyperglycemia; I11.0 Hypertensive heart disease with heart failure; I50.9 Heart failure, unspecified; J43.9 Emphysema, unspecified; Z68.32 Body mass index [BMI] 32.0-32.9, adult; E66.811 Obesity, class 1; I25.10 Atherosclerotic heart disease of native coronary artery without angina pectoris; E78.00 Pure hypercholesterolemia, unspecified

== ENCOUNTER → 2024-03-10 10:14 | Outpatient (BNVA) | payer MEDICARE, SELFPAY | PROVIDERS: PCP Internal Medicine; Visit Provider Internal Medicine | DX: I48.20 Chronic atrial fibrillation, unspecified (principal); E11.65 Type 2 diabetes mellitus with hyperglycemia; I11.0 Hypertensive heart disease with heart failure; I50.9 Heart failure, unspecified; I25.10 Atherosclerotic heart disease of native coronary artery without angina pectoris; E66.9 Obesity, unspecified; E78.00 Pure hypercholesterolemia, unspecified; J43.9 Emphysema, unspecified | CPT/HCPCS: 99212 ==

== ENCOUNTER 2024-04-01 09:43 | Outpatient (REF) | payer MEDICARE, SELFPAY | END 2024-04-01 09:44 | disposition home or self-care (01) | LOC: HO.XRAY 09:43 | PROVIDERS: PCP Internal Medicine; Visit Provider Hospitalist | DX: J90 Pleural effusion, not elsewhere classified (principal); J96.11 Chronic respiratory failure with hypoxia; J43.9 Emphysema, unspecified; I50.9 Heart failure, unspecified | CPT/HCPCS: 71046; 99212 ==

== ENCOUNTER 2024-04-01 09:43 | Outpatient (AMB) | payer MEDICARE, SELFPAY ==
[2024-04-01 10:12] VITALS: PULSE 90; O2SAT 93; BMI 32.7
--- NOTE | 2024-04-01 10:12 | A.OFFVIS_ITS ---
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 Services: Mining Plant Operator Offered & Declined Flight Attendant/Inflight Supervisor: Flight Attendant/Inflight Supervisor offered & declined Accompanied by: Self / Same As Patient Allergies ADONIS Inhibitors [Adonis Inhibitors] Allergy (Severe, Verified 04/01/24 10:22) ANGIOEDEMA Sulfa (Sulfonamide Antibiotics) [Sulfa (Sulfonamides)] Allergy (Intermediate, Ve rified 04/01/24 10:22) CHILLS Medication List - Last Reconciled 04/01/24 by Tonya Paredes LPN acetazolamide 250 mg PO DAILY albuterol sulfate 90 mcg/actuation 2 puffs inhalation Q6H PRN apixaban (Eliquis) 5 mg PO BID 90 days ascorbic acid (vitamin C) (Vitamin C) 500 mg PO BID atorvastatin 20 mg PO DAILY benzocaine-menthol 15-3.6 mg (Sore Throat (benzocaine with menthol)) 1 misael mucous membrane Q2H PRN calcium carbonate (Antacid Ext Str (calcium carb)) 2.5 tabs PO Q4H PRN cholecalciferol (vitamin D3) (Vitamin D3) 25 mcg PO DAILY cyanocobalamin (vitamin B-12) (Vitamin B-12) 1,000 mcg PO DAILY diltiazem HCl CD 180 mg PO DAILY fluticasone propionate 50 mcg/actuation 1 spray intranasal DAILY PRN furosemide 40 mg PO DAILY 90 days inhalational spacing device (Aerochamber MV spacer) As directed ipratropium-albuterol 0.5 mg-3 mg(2.5 mg base)/3 mL 3 mL inhalation Q6H PRN isosorbide mononitrate ER 30 mg PO DAILY 90 days metoprolol tartrate 50 mg PO BID potassium chloride ER 20 mEq PO Q2D Trelegy Ellipta 100-62.5-25 mcg (hdusvkjndoh-mcujfbcup-bfwoznyz) 1 ea PO DAILY NS HPI Comments Details: The patient is an 89-year-old woman known history of COPD in addition to congestive heart failure and history lung cancer back in 2001 status post lobectomy. She developed worsening hypoxia due to her COPD and also a component of restrictive lung disease requiring oxygen. She has been using the oxygen with partial benefit. She still having issues with dyspnea with exertion, moderate in severity. She would like to get a portable oxygen concentrator but it is not clear if she qualifies for one. She has tried to acquire a portable oxygen concentrator to improve her portability since she cannot carry the tanks, however, she has not been able to do so. She has been working through [employer] her current DME company. It does not appear that she has a conserving valve under tank at this time. It is not clear if she has had a conserving device trial in the past. 10/01/2021 the patient is here for a pulmonary follow-up visit. Overall she is doing about the same. Continues to have dyspnea on exertion. The oxygen has been affecting beneficial for her. She also continues with respiratory therapy. She also takes blood thinners. She also continues symptom oximeter after her diagnosis of breast cancer. Recently she was seen by her primary care doctor because of worsening shortness of breath. She was diagnosed with congestive heart failure. Her diuretics were increased and her breathing significantly improved. Initially she was advised to go to the hospital but the patient is reluctant to do so. Now she is back to her baseline. She continues on the higher dose diuretics. She will undergo blood work soon and will follow- up with her primary care doctor soon. I did request that she get an x-ray as well. Will follow-up in 4-6 months or sooner if she has any worsening symptoms or if her chest x-ray is abnormal. 06/17/2023 the patient is here for pulmonary follow-up visit. The patient overall has been doing okay although she lost her wallet and is concerned. She has been using the oxygen with good effect. She does better with continuous flow although the conserving device is easier for her to handle. She uses it at 3 L pulse with activity. And at nighttime she does sleep with the oxygen at 2 L with good effect. Now she is looking to change insurance companies. She is going to switch [facility] who does not cover [facility] [place]. Therefore his she is going to have to switch over to [employer]. Was the patient is situated with [employer] will provide him with the necessary paperwork for her to continue without care. She does need to continue with the oxygen. The patient also has to monitor closely her weight. Over the summertime she did go into heart failure and she did refuse to go to the hospital. Therefore she stayed at home with increasing shortness of breath. The patient is weighing herself daily and she will make a note if she gained 2 lb in 24 hours or more. She also has to be careful with dietary discretion and avoid salt. From a respiratory status she is doing good on her current medicines. She was supposed to go for chest x-ray but since she lost her wallet she is preoccupied with that will hold off until the next visit. If the patient has any issues prior to the next visit she will call for an earlier assessment. 04/01/2024 the patient is here for a pulmonary follow-up visit. She is comp laining of increasing shortness of breath. He has been noticing that she has been using her oxygen more. She has had to increase her oxygen with activity because she is uncomfortable. Denies any chest pains or palpitations. Denies any significant wheezing. She has been using her inhalers as prescribed. She had been hospital back over the summer. During that time she did have a chest x-ray demonstrating a pleural effusion. She did undergo thoracentesis and her breathing did improve. She was upset because she did have a Significant bill from the cytology evaluation. Cytology was indeed negative. We talked about the fluid potentially coming back. She does have diminished breath sounds. She will go undergo a chest x-ray to see if there is any significant fluids. In the meantime she is going to need additional oxygen; 2 L at rest and 4 L with activity and sleep. [facility] Medical History (Updated 04/03/24 @ 17:48 by Bipin Akers MD) Pleural effusion Atrial fibrillation History of cancer of upper lobe bronchus or lung Age-related osteoporosis without current pathological fracture History of right breast cancer Mesenteric ischemia Diverticular disease Congestive heart failure Degenerative disc disease Coronary artery disease Obesity (BMI 30-39.9) Peripheral vascular disease Hypercholesterolemia TIA (transient ischemic attack) Anemia Breast cancer Small cell lung cancer, right lower lobe HTN (hypertension) COPD (chronic obstructive pulmonary disease) Surgical History History of lumpectomy of right breast H/O resection of small bowel Family History Father Heart disease Mother Heart disease Brother Multiple myeloma Brother Lung cancer Social History (Updated 04/01/24 @ 10:23 by Tonya Paredes LPN) Household Members: Family Housing: Apartment Are you a primary acute care nurse to a significant other at home: No Do you presently have visiting nurse or other home services: No Alcohol intake: never Patient Tobacco Use Status: Former Tobacco user Tobacco use type: Cigarette e-Cigarette/Vaping Use: Never Used Second Hand Smoke Exposure: No Advance Directives Date on File: 01/08/24 service: No Current occupational status: retired Current occupational exposures/hazards: No Cognitive needs: Yes (walker) Hearing needs: Yes Vision needs: Yes (glasses) Female Reproductive History Menstrual Age of Menarche: 13 Review of Systems Const Denies chills and Denies fever(s) Card Reports dyspnea and Reports dyspnea on exertion Resp Reports dyspnea and Reports dyspnea on exertion GI Denies abdominal pain Denies difficulty voiding Musc Reports back pain and Reports arthralgias Physical Exam Vital Signs: Last Vital Signs Pulse 90 04/01/24 10:12 Pulse Ox 93 04/01/24 10:12 Oxygen Delivery Method Nasal Cannula 04/01/24 10:12 Oxygen Flow Rate 3 04/01/24 10:12 BMI result Body Mass Index 32.7 Const General: alert Neck Neck: Yes normal visual inspection, Yes full ROM and Yes no lymphadenopathy Chest Chest palpation & inspection: normal inspection of the chest Resp Effort & Inspection: normal respiratory effort Auscultation: diminished lung sounds Cardio Rate: regular rate Rhythm: regular rhythm Heart sounds: S1 normal heart sound present and S2 normal heart sound present GI Palpation (GI): Soft to palpation and nontender Auscultation: normal bowel sounds Skin General skin exam: rashes and/or lesions noted Assessment & Plan Assessment & Plan (1) Pleural effusion: Comment: Transudative based on lab results from the 1st tap Code(s): J90 - Pleural effusion, not elsewhere classified Category: Medical (2) Chronic respiratory failure: Code(s): J96.10 - Chronic respiratory failure, unspecified whether with hypoxia or hypercapnia Category: Medical Qualifiers: Respiratory failure complication: hypoxia Qualified Code(s): J96.11 - Chronic respiratory failure with hypoxia (3) COPD (chronic obstructive pulmonary disease): Code(s): J44.9 - Chronic obstructive pulmonary disease, unspecified Category: Medical Qualifiers: COPD type: emphysema Emphysema type: unspecified Qualified Code(s): J43.9 - Emphysema, unspecified (4) Congestive heart failure: Code(s): I50.9 - Heart failure, unspecified Category: Medical Qualifiers: Heart failure type: unspecified Heart failure chronicity: unspecified Qualified Code(s): I50.9 - Heart failure, unspecified Plan Contiune oxygen supplementation, 2L at rest, 4 L nasal cannula pulse with activity and 4L/min at night continue Trelegy daily TRISTAN as needed Diuresis as tolerated CXR, assess for pleural effusion. 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
== END 2024-04-01 11:22 | disposition home or self-care (01) ==
LOC: HO.HPS 09:44
PROVIDERS: PCP Internal Medicine; Visit Provider Hospitalist
DX: J90 Pleural effusion, not elsewhere classified (principal); J96.11 Chronic respiratory failure with hypoxia; J43.9 Emphysema, unspecified; I50.9 Heart failure, unspecified
CPT/HCPCS: 99214; G2211

== ENCOUNTER 2024-06-10 16:32 | Inpatient (IN) | payer MEDICARE, OTHER, SELFPAY ==
[2024-06-10] VITALS (10 sets, daily range): BP systolic 117–151; BP diastolic 56–125; PULSE 89–123; RESP 18–26; TEMP 36.5; O2SAT 83–98; BMI 30.8
--- NOTE | ~2024-06-10 | XR_ITS ---
EXAMINATION: XR CHEST CLINICAL INFORMATION: hypoxia, follow up COMPARISON: 06/10/2024. CT chest without contrast 06/11/2024. TECHNIQUE: Frontal view of the chest was obtained. FINDINGS: There is cardiac enlargement. The right heart border is obscured. Prominence of the right hilum again noted, with a 1.6 cm nodular opacity consistent with lung nodule. The aorta is calcified and mildly tortuous. Surgical clips in the right mediastinum and superior hilum. COPD. Small to moderate right effusion with underlying parenchymal opacity, similar. Tiny left effusion, similar. Increased fine reticular markings throughout both lungs with Clint lines and haziness of the interstitium, suggesting CHF. This appears worsened when compared with 06/10/2024. No pneumothorax. Right greater than left apical pleural thickening. No suspicious soft tissue or bone abnormality. Degenerative changes throughout the spine and shoulder joints. XR/XR chest 1V IMPRESSION: 1. Cardiomegaly. Interval worsening asymmetric interstitial pulmonary edema. Major differential would include atypical pneumonia but is felt less likely given the appearance. 2. Nodularity of the right hilum, similar to prior exams. Postop changes. 3. COPD. Small to moderate right and tiny left effusion. Underlying right basilar parenchymal opacity is unchanged, most likely atelectasis. Electronically signed by: Kristopher Hutchison MD 06/16/2024 11:23 AM DARLIN
--- NOTE | ~2024-06-10 | CT_ITS ---
CLINICAL HISTORY: hypoxia CT chest without contrast Comparison: 01/11/2024 Findings: The heart size is enlarged. The visualized thyroid and mediastinum are unremarkable. There is right upper lobe scarring. There are changes pulmonary bullous disease. There is an irregular right lower lobe 1.4 x 1.2 cm lesion suspicious for neoplasm. There are bilateral pleural effusions with underlying consolidation, possible subsegmental atelectasis or pneumonia. The upper abdomen is unremarkable. The bones are intact. IMPRESSION: 1. Right lower lobe pulmonary lesion suspicious for neoplasm. Appropriate further evaluation and intervention recommended. 2. Bilateral pleural effusions with underlying consolidation, differential considerations noted. 3. Cardiomegaly. 4. Pulmonary bullous disease and right upper lobe scarring This document has been electronically signed by: Pa Jung MD on 06/11/2024 05:33:24
--- NOTE | ~2024-06-10 | XR_ITS ---
CLINICAL HISTORY: hypoxia 1 view chest x-ray Comparison: CR/SR - XR CHEST 2V - 04/01/24 11:04 EDT CR/SR - XR CHEST 1V - 01/12/24 11:37 EDT Findings: Small bilateral pleural effusions, right larger than left with interval increase on the right. Heterogeneous airspace opacities within the bilateral lower lungs with interval worsening. Nodularity and fullness of the right hilum, similar to the prior study. Mildly enlarged heart. No acute fracture. IMPRESSION: 1. Bibasilar atelectasis and/or infiltrates, [id number], with worsening. 2. Small bilateral pleural effusions, right larger than left, with interval worsening on the right. This document has been electronically signed by: Joan Malik MD on 06/10/2024 17:33:10
--- NOTE | ~2024-06-10 | US_ITS ---
CLINICAL HISTORY: pain Venous duplex ultrasound bilateral lower extremity Comparison: None Findings: The visualized deep veins are fully compressible with normal Doppler color flow and spectral tracings. No popliteal cyst. IMPRESSION: 1. Negative for bilateral lower extremity deep vein thrombosis. This document has been electronically signed by: Joan Malik MD on 06/10/2024 17:47:45
--- NOTE | 2024-06-10 16:48 | ECG_ITS ---
Test Reason : SOB Blood Pressure : */* mmHG Vent. Rate : 93 BPM Atrial Rate : * BPM P-R Int : * ms QRS Dur : 68 ms QT Int : 338 ms P-R-T Axes : * 91 35 degrees QTcB Int : 420 ms Atrial fibrillation Rightward axis Septal infarct (cited on or before 08-Jan-2024) Abnormal ECG When compared with ECG of 08-Jan-2024 13:22, No significant changes seen Referred By: Bari Ya Electronically Signed By: VIMAL WARE
[2024-06-10 17:07] LABS: MANUAL DIFF FLAG NO
[2024-06-10 17:14] LABS: Basophils Percent Auto 0.5 % (0-2); Eosinophils Percent Auto 0.1 % (0-4); Hematocrit 38.9 % (37.0-47.0); Hemoglobin 11.2 g/dl (12.0-16.0); Imm Gran Abs Auto 0.05 X10*3/uL (0.00-0.03); Imm Gran Pct Auto 0.6 % (0.0-0.4); Lymphocytes Absolute Auto 0.6 X10*3/uL (1.2-4.9); Lymphocytes Percent Auto 7.1 % (20-40); Mean Corpuscular HGB Conc 28.8 g/dl (31.0-35.0); Mean Corpuscular Hemoglobin 27.3 pg (27.0-33.0); Mean Corpuscular Volume 94.9 fL (80.0-98.0); Mean Platelet Volume 11.6 fL (9.4-12.3); Monocytes Absolute Auto 0.6 X10*3/uL (0.1-1.2); Monocytes Percent Auto 7.8 % (2-11); Neutrophils Absolute Auto 6.9 x10*3/uL (2.0-8.3); Neutrophils Percent Auto 83.9 % (45-73); Platelet Count 194 X10*3/uL (160-400); White Blood Count 8.2 X10*3/uL (4.8-10.8)
[2024-06-10 17:22] LABS: VBG Base Excess 16.4 mmol/L; VBG HCO3 46 mmol/L (22-26); VBG pCO2 84 mmHg; VBG pH 7.34 (7.32-7.43); VBG pO2 34 mmHg
[2024-06-10 17:23] LABS: Venous Blood Gas Refer to POC result
[2024-06-10 17:29] LABS: Alanine Aminotransferase 10 U/L (0-31); Albumin Level 3.9 g/dL (3.5-5.0); Alkaline Phosphatase 65 U/L (39-117); Anion Gap 9 (12-20); Aspartate Amino Transferase 29 U/L (5-31); B Type Natriuretic Peptide 664 pg/mL (<100); Bilirubin Total 1.3 mg/dL (0.0-1.0); Blood Urea Nitrogen 24 mg/dL (9-16); Calcium 8.7 mg/dL (8.4-10.2); Carbon Dioxide 40 mmol/L (22-29); Chloride 100 mmol/L (96-108); Creatinine Clr Calc Pharmacy 36.5; Estimated Glomerular Filt Rate 50; Glucose Random 183 mg/dL (60-115); Potassium 4.2 mmol/L (3.3-5.1); Sodium 145 mmol/L (135-145); Total Protein 7.4 g/dL (6.5-8.0)
[2024-06-10 17:46] LABS: Influenza A PCR NEGATIVE (Negative); Influenza B PCR NEGATIVE (Negative); Resp Syncy Virus RNA Qual PCR NEGATIVE (Negative); SARS COV2 PCR INHOUSE NEGATIVE (Negative)
[2024-06-10] MEDS: methylPREDNISolone Sod Succ 125 MG/2 ML VIAL IVPUSH (18:00)
[2024-06-10] MEDS: Furosemide 40 MG/4 ML VIAL IVPUSH ×2 (18:00→23:53)
[2024-06-10] MEDS: Albuterol Sulfate 2.5 MG, Albuterol/Iprat 2.5/0.5MG 3 ML 3 ML INHALE (18:05)
--- NOTE | 2024-06-10 18:06 | PC.NURSE ---
placed on bipap at this time. patient w/ no obvious signs/symptoms of distress noted. speaking in full clear sentences.
[2024-06-10 18:27] LABS: Lactic Acid 1.7 mmol/L (0.5-2.0)
--- NOTE | 2024-06-10 20:13 | ED.GENADULT ---
HPI - General Adult General Chief complaint: Dyspnea Stated complaint: shortness of breath Time Seen by Provider: 06/10/24 16:42 Source: patient, RN notes reviewed and old records reviewed Mode of arrival: ambulatory Limitations: no limitations History of Present Illness ED Provider: Felton HPI narrative: 89-year-old female with past medical history significant for atrial fibrillation on Eliquis, diabetes, osteopenia, peripheral vascular disease, hypertension, COPD on 2.5 L via nasal cannula presents for evaluation of shortness of breath and leg swelling. Patient reports increased swelling mostly to the right lower extremity over the last few days to a week. She reports that she had significantly increased shortness of breath today. She had been out to get her hair done and felt as though she could not breathe She reports that last night she increased her oxygen to 3 L She denies any chest pain. She reports over the last week her right leg his started weeping clear fluid Denies any history of DVT The patient was admitted to this facility on December and had a thoracentesis due to pleural effusion She denies any fevers or coughing Related Data Home Medications ?Medication ?Instructions ?Recorded ?Confirmed ascorbic acid (vitamin C) 500 mg 500 mg PO BID 01/08/24 06/11/24 tablet (Vitamin C) cholecalciferol (vitamin D3) 25 25 mcg PO DAILY 01/08/24 06/11/24 mcg (1,000 unit) capsule (Vitamin D3) cyanocobalamin (vitamin B-12) 1,000 mcg PO DAILY 01/08/24 06/11/24 1,000 mcg tablet (Vitamin B-12) fluticasone propionate 50 1 spray intranasal DAILY PRN 01/08/24 06/11/24 mcg/actuation nasal Allergy Symptoms spray,suspension atorvastatin 20 mg tablet 20 mg PO BEDTIME 06/11/24 06/11/24 fluticasone fur. 100 mcg-umeclid 1 ea inhalation DAILY 06/11/24 06/11/24 62.5 mcg-vilant 25 mcg inhalat.powder (Trelegy Ellipta) Previous Rx's ?Medication ?Instructions ?Recorded potassium chloride 20 mEq 20 meq PO Q2D #45 tabs 08/06/23 tablet,extended release(part/cryst) apixaban 5 mg tablet (Eliquis) 5 mg PO BID 90 days #180 tabs 09/23/23 inhalational spacing device #1 ea 11/05/23 (Aerochamber MV spacer) albuterol sulfate 90 mcg/actuation 2 puff inhalation Q6H PRN for 11/27/23 aerosol inhaler wheezing #8.5 ea benzocaine 15 mg-menthol 3.6 mg 1 misael mucous membrane Q2H PRN Sore 01/15/24 lozenges (Sore Throat (benzocaine Throat #18 ea with menthol)) ipratropium 0.5 mg-albuterol 3 mg 3 ml inhalation Q6H PRN Shortness 01/15/24 (2.5 mg base)/3 mL nebulization Of Breath/Wheezing #180 mL soln diltiazem HCl 180 mg 180 mg PO DAILY #90 caps 02/11/24 capsule,extended release 24 hr Nasal Mask #1 ea 04/05/24 metoprolol tartrate 50 mg tablet 50 mg PO BID #180 tabs 05/27/24 furosemide 40 mg tablet 40 mg PO DAILY 90 days #90 tabs 05/29/24 isosorbide mononitrate 30 mg 30 mg PO DAILY 90 days #90 tabs 06/10/24 tablet,extended release 24 hr Allergies Allergy/AdvReac Type Severity Reaction Status Date / Time ADONIS Inhibitors Allergy Severe ANGIOEDEMA Verified 06/10/24 16:51 [Adonis Inhibitors] Sulfa (Sulfonamide Allergy Intermediate CHILLS Verified 06/10/24 16:51 Antibiotics) [Sulfa (Sulfonamides)] Review of Systems Constitutional: Constitutional: Denies body ache(s), Denies chills and Denies fever(s) Eyes: Eyes: Denies blurry vision ENT: Denies vertigo and Denies dizziness Cardiovascular: Cardiovascular: Denies chest pain, Reports pedal edema, Reports leg edema and Reports dyspnea Respiratory: Respiratory: Denies cough, Reports dyspnea and Reports wheezing Gastrointestinal: Gastrointestinal: Denies abdominal pain, Denies nausea and Denies vomiting Musculoskeletal: Musculoskeletal: Denies back pain Integumentary/Breasts: Skin/Breast: Denies rash Neurologic: Denies vertigo and Denies dizziness Allergic/Immunologic: Allergic/Immunologic: Reports wheezing PMFSH Past Medical History Medical History (Updated 06/12/24 @ 15:05 by Ismael Marino MD) Pleural effusion Atrial fibrillation History of cancer of upper lobe bronchus or lung Age-related osteoporosis without current pathological fracture History of right breast cancer Mesenteric ischemia Diverticular disease Congestive heart failure Degenerative disc disease Coronary artery disease Obesity (BMI 30-39.9) Peripheral vascular disease Hypercholesterolemia TIA (transient ischemic attack) Anemia Breast cancer Small cell lung cancer, right lower lobe HTN (hypertension) COPD (chronic obstructive pulmonary disease) Surgical History History of lumpectomy of right breast H/O resection of small bowel Family History Family History Father Heart disease Mother Heart disease Brother Multiple myeloma Brother Lung cancer Social History Social History (Updated 04/01/24 @ 10:23 by Tonya Paredes LPN) Household Members: Children Housing: Apartment Are you a primary intensive care unit registered nurse to a significant other at home: No Do you presently have visiting nurse or other home services: No Alcohol intake: never Patient Tobacco Use Status: Former Tobacco user Tobacco use type: Cigarette e-Cigarette/Vaping Use: Never Used Second Hand Smoke Exposure: No Advance Directives Date on File: 01/08/24 service: No Current occupational status: retired Current occupational exposures/hazards: No Cognitive needs: Yes (walker) Hearing needs: Yes Vision needs: Yes (glasses) Physical Exam ED Vital Signs: Vital Signs - 24 hr 06/10/24 16:45 06/10/24 18:00 06/10/24 18:02 Temperature 97.7 F Pulse Rate 92 91 Respiratory Rate 18 24 H 24 H Blood Pressure 117/56 L Pulse Oximetry 83 L Oxygen Delivery Method Nasal Cannula 06/10/24 19:04 06/10/24 19:22 06/10/24 22:55 Temperature Pulse Rate 105 H 122 H Respiratory Rate 25 H 25 H 26 H Blood Pressure 151/60 H 149/125 H Pulse Oximetry 96 92 Oxygen Delivery Method BiPAP BiPAP 06/10/24 22:55 06/10/24 23:12 06/10/24 23:53 Temperature Pulse Rate 123 H 111 H Respiratory Rate 21 H Blood Pressure 149/125 H 146/73 H 145/67 H Pulse Oximetry 92 Oxygen Delivery Method BiPAP 06/10/24 23:59 06/11/24 00:23 06/11/24 01:45 Temperature Pulse Rate 110 H 109 H Respiratory Rate 26 H 24 H 22 H Blood Pressure 056/85 Pulse Oximetry 95 Oxygen Delivery Method BiPAP 06/11/24 02:54 06/11/24 03:24 06/11/24 03:26 Temperature Pulse Rate 141 H 141 H 141 H Respiratory Rate 25 H Blood Pressure 163/70 H 141/48 H 141/48 H Pulse Oximetry 93 Oxygen Delivery Method BiPAP 06/11/24 03:49 Temperature Pulse Rate 132 H Respiratory Rate 21 H Blood Pressure 146/58 H Pulse Oximetry 94 Oxygen Delivery Method BiPAP BMI result Body Mass Index 30.8 Const General: healthy appearing, comfortable, no acute distress, alert and awake Nutritional Appearance: well nourished Orientation/consciousness: patient oriented x3 HENMT Head: Yes normocephalic and Yes atraumatic Eyes Eyelids: Yes eyelids normal Conjunctivae: conjunctivae normal Sclerae: sclerae normal Corneas: corneas normal Pupils: Equal, round and reactive pupils present EOM: EOMs intact bilaterally Neck Neck: Yes full ROM Resp Effort & Inspection: normal respiratory effort, able to speak in complete sentences and not labored Auscultation: clear to auscultation bilaterally (Very diminished but without adventitious breath sounds) Cardio Other: Bilateral 2+ pitting edema, right greater than left. There is serous drainage from the right lower extremity. No significant wounds noted Rhythm: abnormal rhythm irregularly irregular GI Inspection: No distended Palpation (GI): Soft to palpation, not firm, nontender, no guarding and not rigid Skin General skin exam: elasticity normal Neuro General: patient oriented x3 Cranial nerves: Yes Equal, round and reactive pupils present and Yes Bilaterally intact EOM present Cognition (Neuro): normal cognition Extrem Other: Moving all extremities well without any obvious deformities Course Reevaluation(s) Reevaluation #1: Patient was removed off BiPAP and a repeat VBG was ordered. Her pH resulted at 7 point 6 6. The patient is generally alkalotic. She remains awake, alert and oriented, her CO2 has improved Time: 22:03 Reevaluation #2: I attempted to discuss with the hospitalist for admission. The patient was evaluated by Dr. Phillips the hospitalist who felt the patient was still unstable for the floor as she was hypoxic on her baseline oxygen requirements of 2.5 L. she is concerned that if we increase the oxygen supplementation the patient has become more hypercapnic and recommends additional time on BiPAP. I discussed with the hospitalist, Dr. Phillips and the ICU team will evaluate the patient Time: 22:59 Reevaluation #3: Patient is signed out to overnight staff pending disposition Time: 02:35 Medications Administered Generic Name Dose Route Start Last Admin Trade Name Freq PRN Reason Stop Dose Admin Apixaban 5 mg 06/11/24 21:00 06/15/24 09:18 Apixaban 5 Mg Tablet PO 5 mg BID TERE Administration Ascorbic Acid 500 mg 06/11/24 21:00 06/15/24 09:18 Ascorbic Acid 500 Mg Tablet PO 500 mg BID TERE Administration Atorvastatin Calcium 20 mg 06/11/24 21:00 06/14/24 20:31 Atorvastatin Calcium 20 Mg Tablet PO 20 mg BEDTIME TERE Administration Cefuroxime Axetil 500 mg 06/13/24 08:00 06/15/24 09:18 Cefuroxime Axetil 500 Mg Tablet PO 500 mg Q12H TERE Administration Cyanocobalamin 1,000 mcg 06/12/24 09:00 06/15/24 09:18 Cyanocobalamin (Vitamin B-12) 1,000 Mcg Tablet PO 1,000 mcg DAILY TERE Administration Diltiazem HCl 180 mg 06/12/24 09:00 06/15/24 09:18 Diltiazem Hcl Cd 180 Mg Cap.Er.24h PO 180 mg DAILY TERE Administration Protocol Fluticasone/Umeclidinium/Vilanterol 1 puff 06/12/24 08:00 06/15/24 07:41 Fluticasone/Umeclidinium/Vilanterol 100/62.5/25 Blst.W.Dev INHALE 1 puff RDAILY TERE Administration Furosemide 20 mg 06/15/24 09:00 06/15/24 09:17 Furosemide 40 Mg/4 Ml Vial IVPUSH 20 mg DAILY TERE Administration Protocol Insulin Human Lispro 0 unit 06/11/24 07:30 06/15/24 08:01 Insulin Lispro 100 Unit/Ml 3 Ml Vial SUBCUT Not Given QIDACHS TERE Protocol Isosorbide Mononitrate 30 mg 06/11/24 15:00 06/14/24 09:05 Isosorbide Mononitrate 30 Mg Tab.Er.24h PO 30 mg DAILY TERE Administration Protocol Levalbuterol HCl 1.25 mg 06/11/24 06:11 06/14/24 22:06 Levalbuterol Hcl 1.25 Mg/3 Ml Vial.Neb INHALE 1.25 mg Q3H PRN Administration Wheezing Metoprolol Tartrate 50 mg 06/11/24 15:00 06/15/24 09:18 Metoprolol Tartrate 50 Mg Tablet PO 50 mg BID TERE Administration Protocol Potassium Chloride 20 meq 06/11/24 16:00 06/13/24 16:52 Potassium Chloride Er 20 Meq Tab.Er.Prt PO 20 meq Q2D TERE Administration Prednisone 40 mg 06/11/24 15:15 06/15/24 09:17 Prednisone 20 Mg Tablet PO 40 mg DAILY TERE Administration Sodium Chloride 3 ml 06/11/24 08:00 06/15/24 09:17 0.9 % Sodium Chloride Flush 3 Ml Syringe IVFLUSH 3 ml QSHIFT TERE Administration Vitamin D 25 mcg 06/12/24 09:00 06/15/24 09:18 Cholecalciferol (Vitamin D3) 25 Mcg Tablet PO 25 mcg DAILY TERE Administration Discontinued Medications Generic Name Dose Route Start Last Admin Trade Name Freq PRN Reason Stop Dose Admin Acetazolamide 250 mg 06/11/24 15:09 06/11/24 16:27 Acetazolamide 250 Mg Tablet PO 06/11/24 15:10 250 mg ONCE ONE Administration Apixaban 5 mg 06/11/24 08:00 06/11/24 07:48 Apixaban 5 Mg Tablet PO 06/11/24 08:01 5 mg ONCE ONE Administration Ceftriaxone Sodium 1 gm 06/11/24 01:29 06/11/24 01:38 Ceftriaxone Sodium 1 Gm Vial IVPUSH 06/11/24 01:30 1 gm ONCE ONE Administration Ceftriaxone Sodium 1 gm 06/11/24 18:00 06/11/24 18:18 Ceftriaxone Sodium 1 Gm Vial IVPUSH 1 gm Q24H TERE Administration Ceftriaxone Sodium 2 gm 06/12/24 13:00 06/12/24 12:57 Ceftriaxone Sodium 2 Gm Vial IVPUSH 2 gm Q24H TERE Administration Albuterol Sulfate 2.5 mg/ 0 mg 06/10/24 18:02 06/10/24 18:05 Albuterol/Ipratropium 3 ml INHALE 06/10/24 18:03 5 dose ONCE ONE Administration Albuterol Sulfate 5 mg/ 0 mg 06/11/24 01:24 06/11/24 01:39 Albuterol/Ipratropium 3 ml INHALE 06/11/24 01:25 1 each ONCE ONE Administration Diltiazem HCl 20 mg 06/10/24 22:43 06/10/24 22:55 Diltiazem Hcl 50 Mg/10 Ml Vial IVPUSH 06/10/24 22:44 20 mg STAT STA Administration Diltiazem HCl 10 mg 06/11/24 02:52 06/11/24 02:54 Diltiazem Hcl 50 Mg/10 Ml Vial IVPUSH 06/11/24 02:53 10 mg STAT STA Administration Furosemide 40 mg 06/10/24 17:37 06/10/24 18:00 Furosemide 40 Mg/4 Ml Vial IVPUSH 06/10/24 17:38 40 mg STAT STA Administration Protocol Furosemide 40 mg 06/10/24 23:37 06/10/24 23:53 Furosemide 40 Mg/4 Ml Vial IVPUSH 06/10/24 23:38 40 mg STAT STA Administration Protocol Furosemide 40 mg 06/11/24 08:00 06/13/24 07:41 Furosemide 40 Mg/4 Ml Vial IVPUSH 40 mg BID@0800,1500 TERE Administration Protocol Furosemide 40 mg 06/13/24 09:00 06/14/24 09:05 Furosemide 40 Mg/4 Ml Vial IVPUSH 40 mg DAILY TERE Administration Protocol Diltiazem HCl 125 mg/ Sodium 125 mls @ 0 mls/hr 06/11/24 03:00 06/12/24 08:07 Chloride IVCONT Infused .Q0M TERE Titration Protocol Per Protocol Azithromycin 500 mg/ Sodium 250 mls @ 125 mls/hr 06/12/24 13:00 06/12/24 15:11 Chloride IV Infused Q24H TERE Infusion Isosorbide Mononitrate 30 mg 06/11/24 08:12 06/11/24 07:48 Isosorbide Mononitrate 30 Mg Tab.Er.24h PO 06/11/24 08:13 30 mg ONCE ONE Administration Protocol Levalbuterol HCl 5 mg 06/11/24 05:26 06/11/24 05:30 Levalbuterol Hcl 1.25 Mg/3 Ml Vial.Neb INHALE 06/11/24 05:27 5 mg ONCE ONE Administration Methylprednisolone Sodium Succinate 125 mg 06/10/24 17:36 06/10/24 18:00 Methylprednisolone Sod Succ 125 Mg/2 Ml Vial IVPUSH 06/10/24 17:37 125 mg ONCE ONE Administration Metoprolol Tartrate 5 mg 06/11/24 04:42 06/11/24 04:48 Metoprolol Tartrate 5 Mg/5 Ml Vial IVPUSH 06/11/24 04:43 5 mg ONCE ONE Administration Protocol Medical Decision Making Medical Decision Making MDM Narrative: 89-year-old female with past medical history as documented above presents for evaluation of shortness of breath. I was asked to evaluate the patient as her oxygen saturation was reportedly 78% on her baseline 2.5 L. when I went to evaluate the patient she was on an OxyMask at 5 L. her oxygen saturation was 93% and she appeared quite comfortable. Given her lower extremity edema and diminished breath sounds at a high suspicion for CHF. A portable chest x-ray confirms pulmonary vascular congestion with small pleural effusions bilaterally. This appears slightly worse than her x-ray from December in which she had a thoracentesis. Given the patient's history of COPD I did order a bronchodilator protocol and she was given a DuoNeb and I added Solu-Medrol. Her BNP is higher than it has ever been and given the pleural effusions I ordered Lasix 40 mg IV. She does take Lasix 40 mg orally every day. The patient admits that she increased her oxygen supplementation last night and I suspect she has done it more than she is letting on. She is hypercapnic with a carbon dioxide of 40 on her chemistry however, on her blood gas she appears to be compensating well as her pH is 7.34. Bicarb was elevated to 46 which is higher than it has ever been here. We will trial her on BiPAP for a couple of hours and repeat a VBG. She has no fever, no cough, no leukocytosis, I do not see any infectious process currently. We will hold antibiotics at this time Patient with AFib with rapid ventricular rate with COPD with history of lung cancer comes here for increased shortness a breath and leg swelling with CHF and COPD placed on BiPAP initially off BiPAP now on 2 L oxygen saturating 94 % Cardizem drip started for AFib patient's seems much better now CT scan was done which showed right pleural effusion final report is pending will admit the patient for hospitalist service for AFib and COPD Differential Diagnosis Differential Diagnoses: The differential diagnosis associated with the presentation includes COPD CHF exacerbation Pneumonia Bronchitis Upper respiratory infection Admission/Observation Consideration of admission/observation: Escalation of care including admission/observation considered Patient will require admission for hypercapnic respiratory failure. This is likely multifactorial due to CHF and some degree of COPD Lab Data MDM Lab Attestation statement: I reviewed the patient's lab results. As above 06/14/24 06:56 06/14/24 06:56 Labs: Lab Results 06/10/24 06/10/24 06/10/24 Range/Units 17:02 17:18 18:06 WBC 8.2 (4.8-10.8) X10*3/uL RBC 4.10 L (4.20-5.50) X10*6/uL Hgb 11.2 L (12.0-16.0) g/dl Hct 38.9 (37.0-47.0) % MCV 94.9 (80.0-98.0) fL MCH 27.3 (27.0-33.0) pg MCHC 28.8 L (31.0-35.0) g/dl RDW 15.0 (11.0-16.0) % Plt Count 194 (160-400) X10*3/uL MPV 11.6 (9.4-12.3) fL Immature Gran % (Auto) 0.6 H (0.0-0.4) % Neut % (Auto) 83.9 H (45-73) % Lymph % (Auto) 7.1 L (20-40) % Stephenson % (Auto) 7.8 (2-11) % Eos % (Auto) 0.1 (0-4) % Baso % (Auto) 0.5 (0-2) % Lymph # (Auto) 0.6 L (1.2-4.9) X10*3/uL Stephenson # (Auto) 0.6 (0.1-1.2) X10*3/uL Eos # (Auto) 0.0 (0.0-0.4) X10*3/uL Baso # (Auto) 0.0 (0.0-0.2) X10*3/uL Abs Immat Gran (auto) 0.05 H (0.00-0.03) X10*3/uL Absolute Neuts (auto) 6.9 (2.0-8.3) x10*3/uL Absolute Nucleated RBC 0.000 (0.0-0.012) X10*3/uL Nucleated RBC % (auto) 0.0 (0.0-0.2) /100WBC Hold Blue Top SEE NOTE VBG pH 7.34 (7.32-7.43) VBG pCO2 84 mmHg VBG pO2 34 mmHg VBG HCO3 46 H (22-26) mmol/L VBG O2 Saturation 38.0 % VBG Base Excess 16.4 mmol/L Sodium 145 (135-145) mmol/L Potassium 4.2 (3.3-5.1) mmol/L Chloride 100 (96-108) mmol/L Carbon Dioxide 40 H* (22-29) mmol/L Anion Gap 9 L (12-20) BUN 24 H (9-16) mg/dL Creatinine 1.04 (0.5-1.4) mg/dL Estim Creat Clear Calc 36.5 Estimated GFR 50 Random Glucose 183 H (60-115) mg/dL Lactic Acid 1.7 (0.5-2.0) mmol/L Calcium 8.7 (8.4-10.2) mg/dL Total Bilirubin 1.3 H (0.0-1.0) mg/dL AST 29 (5-31) U/L ALT 10 (0-31) U/L Alkaline Phosphatase 65 (39-117) U/L B-Natriuretic Peptide 664 H (<100) pg/mL Total Protein 7.4 (6.5-8.0) g/dL Albumin 3.9 (3.5-5.0) g/dL Influenza Type A (PCR) NEGATIVE (Negative) Influenza Type B (PCR) NEGATIVE (Negative) RSV RNA Qual (PCR) NEGATIVE (Negative) SARS-CoV-2 RNA (RT-PCR) NEGATIVE (Negative) 06/10/24 Range/Units 21:48 WBC (4.8-10.8) X10*3/uL RBC (4.20-5.50) X10*6/uL Hgb (12.0-16.0) g/dl Hct (37.0-47.0) % MCV (80.0-98.0) fL MCH (27.0-33.0) pg MCHC (31.0-35.0) g/dl RDW (11.0-16.0) % Plt Count (160-400) X10*3/uL MPV (9.4-12.3) fL Immature Gran % (Auto) (0.0-0.4) % Neut % (Auto) (45-73) % Lymph % (Auto) (20-40) % Stephenson % (Auto) (2-11) % Eos % (Auto) (0-4) % Baso % (Auto) (0-2) % Lymph # (Auto) (1.2-4.9) X10*3/uL Stephenson # (Auto) (0.1-1.2) X10*3/uL Eos # (Auto) (0.0-0.4) X10*3/uL Baso # (Auto) (0.0-0.2) X10*3/uL Abs Immat Gran (auto) (0.00-0.03) X10*3/uL Absolute Neuts (auto) (2.0-8.3) x10*3/uL Absolute Nucleated RBC (0.0-0.012) X10*3/uL Nucleated RBC % (auto) (0.0-0.2) /100WBC Hold Blue Top VBG pH 7.66 H* (7.32-7.43) VBG pCO2 34 mmHg VBG pO2 210 mmHg VBG HCO3 39 H (22-26) mmol/L VBG O2 Saturation 99.0 % VBG Base Excess 17.7 mmol/L Sodium (135-145) mmol/L Potassium (3.3-5.1) mmol/L Chloride (96-108) mmol/L Carbon Dioxide (22-29) mmol/L Anion Gap (12-20) BUN (9-16) mg/dL Creatinine (0.5-1.4) mg/dL Estim Creat Clear Calc Estimated GFR Random Glucose (60-115) mg/dL Lactic Acid (0.5-2.0) mmol/L Calcium (8.4-10.2) mg/dL Total Bilirubin (0.0-1.0) mg/dL AST (5-31) U/L ALT (0-31) U/L Alkaline Phosphatase (39-117) U/L B-Natriuretic Peptide (<100) pg/mL Total Protein (6.5-8.0) g/dL Albumin (3.5-5.0) g/dL Influenza Type A (PCR) (Negative) Influenza Type B (PCR) (Negative) RSV RNA Qual (PCR) (Negative) SARS-CoV-2 RNA (RT-PCR) (Negative) Independent Interpretation I performed an independent interpretation of an: EKG (AFib with a rate of 93 beats minute. Nondiagnostic EKG) and Plain X-Ray Interpretation: Bilateral pleural effusions, right greater than left. Radiology Impression Discussion of test interpretation with radiology: I have reviewed the radiologist's reading. Radiologist Impression: Findings: The visualized deep veins are fully compressible with normal Doppler color flow and spectral tracings. No popliteal cyst. IMPRESSION: 1. Negative for bilateral lower extremity deep vein thrombosis. This document has been electronically signed by: Joan Malik MD on 06/10/2024 17:47:45 Findings: Small bilateral pleural effusions, right larger than left with interval increase on the right. Heterogeneous airspace opacities within the bilateral lower lungs with interval worsening. Nodularity and fullness of the right hilum, similar to the prior study. Mildly enlarged heart. No acute fracture. IMPRESSION: 1. Bibasilar atelectasis and/or infiltrates, [id number]-left, with worsening. 2. Small bilateral pleural effusions, right larger than left, with interval worsening on the right. This document has been electronically signed by: Joan Malik MD on 06/10/2024 17:33:10 Discharge Plan Discharge Clinical Impression: Atrial fibrillation with rapid ventricular response, Pleural effusion Acute and chronic respiratory failure ([id number]) Qualifiers: Respiratory failure complication: hypoxia and hypercapnia Qualified Code(s): J96.21 - Acute and chronic respiratory failure with hypoxia COPD (chronic obstructive pulmonary disease) Qualifiers: COPD type: emphysema Emphysema type: unspecified Qualified Code(s): J43.9 - Emphysema, unspecified Congestive heart failure Qualifiers: Heart failure type: unspecified Heart failure chronicity: unspecified Qualified Code(s): I50.9 - Heart failure, unspecified Patient Disposition: Admitted As Inpatient Interventions: Admission Worksheet (ED) Last Done: 06/11/24 16:31 Discharge Date/Time: 06/11/24 18:05
[2024-06-10 21:57] LABS: VBG Base Excess 17.7 mmol/L; VBG HCO3 39 mmol/L (22-26); VBG pCO2 34 mmHg; VBG pH 7.66 (7.32-7.43); VBG pO2 210 mmHg
[2024-06-10 21:58] LABS: Venous Blood Gas Refer to POC result
[2024-06-10] MEDS: dilTIAZem HCL 50 MG/10 ML VIAL 20 MG IVPUSH (22:55)
[2024-06-11] VITALS (19 sets, daily range): BP systolic 056–163; BP diastolic 48–85; PULSE 88–142; RESP 16–33; TEMP 36.6–37.4; O2SAT 84–97
[2024-06-11] MEDS: cefTRIAXone sodium 1 GM VIAL IVPUSH ×2 (01:38→18:18)
[2024-06-11] MEDS: Albuterol Sulfate 5 MG, Albuterol/Iprat 2.5/0.5MG 3 ML 3 ML INHALE (01:39)
--- NOTE | 2024-06-11 02:34 | PC.NURSE ---
Patient was removed off BIPAP by RT and received nebulizing treatment. Patient was placed on oxymask at 10 LPM, saturating 94-97%. This RN was unable to flush IV line in L AC, IV line removed. BENOIT Schneider established a new US guided 20 G IV line esta in L forearm. Patient medicated per JUL. Patient currently resting in a stretcher bed, not in distress, call carrasco in reach, plan of care ongoing.
--- NOTE | 2024-06-11 02:46 | PC.NURSE ---
O2 flow decreased to 6 LPM via oxymask, patient tolerating well, O2 Sat 96-97%. HR 122-146. Dr. Gan notified.
[2024-06-11] MEDS: dilTIAZem HCL 50 MG/10 ML VIAL 10 MG IVPUSH (02:54)
--- NOTE | 2024-06-11 02:59 | PC.NURSE ---
RT decreased O2 to 2 LPM via oxymask, O2 Sat noted to be 86-88%. O2 flow increased to 4 LPM with improvement noted 90-91%. Patient medicated with Cardizem 10 mg IV push per MD order.
[2024-06-11] MEDS: dilTIAZem HCL 125 MG in 0.9 % Sodium Chloride 100 ML 10 MG IVCONT ×2 (03:26→11:09)
--- NOTE | 2024-06-11 04:26 | PC.NURSE ---
patient at max tritation of 15mg cardizem HR 100s-130
[2024-06-11] MEDS: Metoprolol Tartrate 5 MG/5 ML VIAL IVPUSH (04:48)
[2024-06-11] MEDS: levalbuterol HCL 1.25 MG/3 ML VIAL.NEB 5 MG INHALE (05:30)
--- NOTE | 2024-06-11 06:13 | P.HPHOSP_ITS ---
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 She denied chest pain. She stated that she tried nebs at home + increased O2 flow to 3L/min without improvement of symptoms. She did not report any acute gastrointestinal genitourinary symptoms. In the ED, she was found to have tachycardia consistent with rapid AFib and tachypnea. There is no fever. She required dry with rescue BiPAP x2 as her O2 sats persisted in the mid 80s. Blood workup showed no leukocytosis. Hemoglobin is 11.2 which is at baseline and platelets are normal. Initial venous gas showed pH is 7.34 and CO2 of 84. After 1st trial with BiPAP the pH increased to 7.66 and pCO2 234. Chest CT scan showed right lower lobe pulmonary lesion suspicious for neoplasm, cardiomegaly, bilateral pleural effusion with underlying consolidation and pulmonary bullous disease and right upper lobe scarring. Venous ultrasound of the lower extremities showed no DVT. Viral testing for COVID-19, influenza and RSV is negative. ED tx: Solu-Medrol 125 mg IV, Lasix 40 mg IV x2, diltiazem 30 mg IV (total), albuterol, metoprolol 5 mg IV, Xopenex 5 mg inhaled Review of Systems 2 Review of Systems: All 12 systems were reviewed and normal except as noted in HPI. [facility] Medical History (Updated 06/11/24 @ 06:43 by Alex Okeefe MD) Pleural effusion Atrial fibrillation History of cancer of upper lobe bronchus or lung Age-related osteoporosis without current pathological fracture History of right breast cancer Mesenteric ischemia Diverticular disease Congestive heart failure Degenerative disc disease Coronary artery disease Obesity (BMI 30-39.9) Peripheral vascular disease Hypercholesterolemia TIA (transient ischemic attack) Anemia Breast cancer Small cell lung cancer, right lower lobe HTN (hypertension) COPD (chronic obstructive pulmonary disease) Family History Father Heart disease Mother Heart disease Brother Multiple myeloma Brother Lung cancer Surgical History History of lumpectomy of right breast H/O resection of small bowel Social History (Updated 04/01/24 @ 10:23 by Tonya Paredes LPN) Household Members: Family Housing: Apartment Are you a primary nonfarm animal caretaker to a significant other at home: No Do you presently have visiting nurse or other home services: No Alcohol intake: never Patient Tobacco Use Status: Former Tobacco user Tobacco use type: Cigarette e-Cigarette/Vaping Use: Never Used Second Hand Smoke Exposure: No Advance Directives: Yes Advance Directives on File: Yes Advance Directives Date on File: 01/08/24 Do you have a plan to hurt others: No Plan service: No Current occupational status: retired Current occupational exposures/hazards: No Cognitive needs: Yes (walker) Hearing needs: Yes Vision needs: Yes (glasses) Meds Allergies Allergy/AdvReac Type Severity Reaction Status Date / Time ADONIS Inhibitors Allergy Severe ANGIOEDEMA Verified 06/10/24 16:51 [Adonis Inhibitors] Sulfa (Sulfonamide Allergy Intermediate CHILLS Verified 06/10/24 16:51 Antibiotics) [Sulfa (Sulfonamides)] Active Medications: Current Medications Acetaminophen (Acetaminophen 325 Mg Tablet) 975 mg PO Q6H PRN PRN Reason: Pain, Mild 1-3,fever,headache Furosemide (Furosemide 40 Mg/4 Ml Vial) 40 mg IVPUSH BID@0800,1500 TERE; Protocol Diltiazem HCl 125 mg/ Sodium (Chloride) 125 mls @ 0 mls/hr IVCONT .Q0M TERE; Protocol Last Titration: 06/11/24 03:49 Dose: 15 mg/hr, 15 mls/hr Sodium Chloride (0.9 % Sodium Chloride Flush 3 Ml Syringe) 3 ml IVFLUSH QSHIFT TERE Home Medications ?Medication ?Instructions ?Recorded ?Confirmed ?Last Taken ?Type ascorbic acid (vitamin C) 500 mg 500 mg PO BID 01/08/24 04/01/24 01/08/24 History tablet (Vitamin C) cholecalciferol (vitamin D3) 25 25 mcg PO DAILY 01/08/24 04/01/24 01/08/24 History mcg (1,000 unit) capsule (Vitamin D3) cyanocobalamin (vitamin B-12) 1,000 mcg PO DAILY 01/08/24 04/01/24 01/08/24 History 1,000 mcg tablet (Vitamin B-12) fluticasone propionate 50 1 spray intranasal DAILY PRN 01/08/24 04/01/24 Unknown History mcg/actuation nasal Allergy Symptoms spray,suspension Physical Exam 2 Vital Signs and Narrative: Vital Signs: Last Vital Signs Temp 99.3 F 06/11/24 04:38 Pulse 109 H 06/11/24 05:57 Resp 24 H 06/11/24 05:57 BP 151/61 H 06/11/24 04:38 Pulse Ox 94 06/11/24 05:57 O2 Del Method Oxymask 06/11/24 05:57 O2 Flow Rate 4 06/11/24 05:57 Oxygen Flow Rate 3 06/10/24 16:45 BMI result Body Mass Index 30.8 Constitutional - Awake and Alert, No apparent distress. OxyMask in place. Cooperative. HEENT - PERRL, EOMI Heart - Tachycardic, irregular rhythm, no murmur Lungs - Normal lung expansion, Normal respiratory effort, No respiratory distress. Tachypnea. Bibasilar crackles. Abdomen - NT / ND; +BS; No rebound or guarding - No CVA tenderness Extremities - pitting edema to the lower extremities Musculoskeletal - Normal inspection, normal ROM Skin - Warm/Dry Neurological - Alert & oriented x3. No focal weakness grossly noted. Normal speech. Psychological - Appropriate affect Results Labs 06/10/24 17:02 06/10/24 17:02 Labs: Laboratory Results - last 24 hr 06/10/24 06/10/24 06/10/24 17:02 17:18 18:06 MCV 94.9 MCH 27.3 MCHC 28.8 L RDW 15.0 Plt Count 194 MPV 11.6 Immature Gran % (Auto) 0.6 H Neut % (Auto) 83.9 H Lymph % (Auto) 7.1 L Coal % (Auto) 7.8 Eos % (Auto) 0.1 Baso % (Auto) 0.5 Lymph # (Auto) 0.6 L Coal # (Auto) 0.6 Eos # (Auto) 0.0 Baso # (Auto) 0.0 Abs Immat Gran (auto) 0.05 H Absolute Neuts (auto) 6.9 Absolute Nucleated RBC 0.000 Nucleated RBC % (auto) 0.0 Hold Blue Top SEE NOTE VBG pH 7.34 VBG pCO2 84 VBG pO2 34 VBG HCO3 46 H VBG O2 Saturation 38.0 VBG Base Excess 16.4 Anion Gap 9 L Estim Creat Clear Calc 36.5 Estimated GFR 50 Random Glucose 183 H Lactic Acid 1.7 Calcium 8.7 Total Bilirubin 1.3 H AST 29 ALT 10 Alkaline Phosphatase 65 B-Natriuretic Peptide 664 H Total Protein 7.4 Albumin 3.9 Influenza Type A (PCR) NEGATIVE Influenza Type B (PCR) NEGATIVE RSV RNA Qual (PCR) NEGATIVE SARS-CoV-2 RNA (RT-PCR) NEGATIVE 06/10/24 21:48 MCV MCH MCHC RDW Plt Count MPV Immature Gran % (Auto) Neut % (Auto) Lymph % (Auto) Coal % (Auto) Eos % (Auto) Baso % (Auto) Lymph # (Auto) Coal # (Auto) Eos # (Auto) Baso # (Auto) Abs Immat Gran (auto) Absolute Neuts (auto) Absolute Nucleated RBC Nucleated RBC % (auto) Hold Blue Top VBG pH 7.66 H* VBG pCO2 34 VBG pO2 210 VBG HCO3 39 H VBG O2 Saturation 99.0 VBG Base Excess 17.7 Anion Gap Estim Creat Clear Calc Estimated GFR Random Glucose Lactic Acid Calcium Total Bilirubin AST ALT Alkaline Phosphatase B-Natriuretic Peptide Total Protein Albumin Influenza Type A (PCR) Influenza Type B (PCR) RSV RNA Qual (PCR) SARS-CoV-2 RNA (RT-PCR) Assessment and Plan (1) Acute and chronic respiratory failure ([id number]): Qualifiers: Respiratory failure complication: hypoxia and hypercapnia Qualified Code(s): J96.21 - Acute and chronic respiratory failure with hypoxia; J96.22 - Acute and chronic respiratory failure with hypercapnia Status: Acute (2) Pleural effusion: Status: Acute (3) Atrial fibrillation with rapid ventricular response: Status: Acute Plan Zenia Horta is 89 y/o woman with PMHx significant for HFrEF (EF 50-55% w/ severely reduced RV systolic function Echo December 2023) admitted with: * Acute on chronic hypoxic respiratory failure secondary to acute on chronic systolic congestive heart failure associated with bilateral pleural effusions in the setting of underlying COPD. Admit to hospitalist service. Telemetry. Pulse oximetry. Continue supplemental O2 to keep O2 sats > 90%. Continue Lasix 40 mg IV twice daily. Continuous also right. Bronchodilator therapy as needed for wheezing. Intake and output. Low-sodium diet. IR consult to consider therapeutic right thoracentesis. * AFib with RVR. Telemetry. Continue Cardizem IV infusion and Eliquis. * Essential hypertension. On Cardizem IV infusion. Continue to monitor BP. * Hyperlipidemia. Continue atorvastatin. * Hx of small cell CA of the right upper lobe in 2001. Status post resection and chemotherapy. * Hx of breast cancer in 2016. Status post lumpectomy and radiation * Hx of type 2 diabetes mellitus. Unclear if she uses insulin. BG checks before meals at bedtime. Diabetic diet. Check Hgb A1c. Insulin sliding scale. DVT prophylaxis: Eliquis Code status: Full Patient will need hospitalization for at least 2 midnights for acute on chronic hypoxic respiratory failure treatment with supplemental oxygen, IV diuresis and bronchodilator therapy as needed. Quality Stroke Does the patient have a stroke diagnosis?: No VTE Prior VTE?: No VTE Risk Level:: Medical - moderate - high VTE Device Contraindication: Treatment Not Indicated VTE Drug Contraindication: N/A - Med Ordered
[2024-06-11 07:16] LABS: Glucose, Whole Blood 227 mg/dL (60-115)
[2024-06-11] MEDS: Furosemide 40 MG/4 ML VIAL IVPUSH ×2 (07:45→15:49)
[2024-06-11] MEDS: Apixaban 5 MG TABLET PO ×2 (07:48→20:06)
[2024-06-11] MEDS: 0.9 % Sodium Chloride Flush 3 ML SYRINGE IVFLUSH ×2 (07:48→20:10)
[2024-06-11] MEDS: Isosorbide Mononitrate 30 MG TAB.ER.24H PO ×2 (07:48→15:48)
[2024-06-11] MEDS: Insulin Lispro 100 UNIT/ML 3 ML VIAL SUBCUT ×4 (07:49→21:33)
--- NOTE | 2024-06-11 09:03 | PC.NURSE ---
pt is alert and oriented, skin pwd, respirations even and unlabored breathing about 24 per min, lower lobes expiatory wheezing, pt is currently on the oxymask at 4l and sating at 93%, Cardizem running at 15mg/h and heart rate 102 in a-fib
[2024-06-11 09:37] LABS: Estimated Average Glucose 140 mg/dL; Hemoglobin A1C 130.1076 umol/L; Hemoglobin A1c % 6.5 % (<6.0); Total Hemoglobin (HGBA1C) 2765.9657 umol/L
--- NOTE | 2024-06-11 10:02 | PHA.MEDREC ---
Addendum entered by Deanna Moncada RPh 06/11/24 13:16: [facility] reviewed Original Note: Pharmacy Consult ? Medication Reconciliation Pharmacy has completed the medication reconciliation. Spoke to the patient to confirm meds.
--- NOTE | 2024-06-11 11:10 | PC.NURSE ---
cardizam drip dropped from 15mg/h to 10 mg/h current hr ranges from 100-80's
--- NOTE | 2024-06-11 12:32 | PC.NURSE ---
pt assisted into a recliner per pt's request, pt does get sob and tachypnic with minim movement, saturation dropped to 84% on 4l via oxymask but improved quickly, now sating at 94%
[2024-06-11 12:49] LABS: Glucose, Whole Blood 203 mg/dL (60-115)
--- NOTE | 2024-06-11 14:33 | PM.EVENT ---
Event Note Date of Service: 06/11/24 Event Note: This patient is seen and examined and admitted this [place] (hospitalist service) she says sob seems somewhat improving, denies any chest pain. her sats flactuates with minimal excersions requires oxygen aroun 4 liters tachycardia also improving on diltiazem drip. Physical exam similar as per h&P and assessment and plan coordinated in h&P note, Agree with the plan in addition: ahrf multfactorial continue iv diuretics, moniter i/o afib rvr-on diltiazem drip. added cardiology eval ct chest-pleural effusion-atelactsis vs pneumonia-start ceftriaxone . no sepsis tachycardia due to afiba nd tachypnea due to copd. Time Spent With Patient Time: Total time managing care of this patient today ____ minutes.
[2024-06-11] MEDS: predniSONE 20 MG TABLET 40 MG PO (15:49)
[2024-06-11] MEDS: Potassium Chloride ER 20 MEQ TAB.ER.PRT PO (16:27)
[2024-06-11] MEDS: acetaZOLAMIDE 250 MG TABLET PO (16:27)
[2024-06-11 18:03] LABS: Glucose, Whole Blood 197 mg/dL (60-115)
[2024-06-11] MEDS: Ascorbic Acid 500 MG TABLET PO (20:06)
[2024-06-11] MEDS: Atorvastatin Calcium 20 MG TABLET PO (20:06)
[2024-06-11 21:24] LABS: Glucose, Whole Blood 175 mg/dL (60-115)
[2024-06-12] VITALS (9 sets, daily range): BP systolic 107–158; BP diastolic 51–70; PULSE 67–114; RESP 16–20; TEMP 36.3–37.2; O2SAT 91–95
[2024-06-12 07:34] LABS: Glucose, Whole Blood 154 mg/dL (60-115)
[2024-06-12] MEDS: dilTIAZem HCL CD 180 MG CAP.ER.24H PO (08:15)
[2024-06-12] MEDS: Isosorbide Mononitrate 30 MG TAB.ER.24H PO (08:15)
[2024-06-12] MEDS: 0.9 % Sodium Chloride Flush 3 ML SYRINGE IVFLUSH ×3 (08:15→20:54)
[2024-06-12] MEDS: Insulin Lispro 100 UNIT/ML 3 ML VIAL SUBCUT ×3 (08:16→20:53)
[2024-06-12] MEDS: Ascorbic Acid 500 MG TABLET PO ×2 (08:16→20:53)
[2024-06-12] MEDS: Cyanocobalamin (Vitamin B-12) 1,000 MCG TABLET 1000 MCG PO (08:16)
[2024-06-12] MEDS: predniSONE 20 MG TABLET 40 MG PO (08:16)
[2024-06-12] MEDS: Apixaban 5 MG TABLET PO ×2 (08:16→20:53)
[2024-06-12] MEDS: Cholecalciferol (Vitamin D3) 25 MCG TABLET PO (08:16)
[2024-06-12] MEDS: Furosemide 40 MG/4 ML VIAL IVPUSH ×2 (08:16→15:58)
[2024-06-12] MEDS: Metoprolol Tartrate 50 MG TABLET PO ×2 (08:16→20:53)
[2024-06-12 08:50] LABS: Basophils Percent Auto 0.1 % (0-2); Hemoglobin 11.2 g/dl (12.0-16.0); Imm Gran Abs Auto 0.16 X10*3/uL (0.00-0.03); Imm Gran Pct Auto 0.8 % (0.0-0.4); Lymphocytes Absolute Auto 0.4 X10*3/uL (1.2-4.9); MANUAL DIFF FLAG SCAN; Mean Corpuscular HGB Conc 28.7 g/dl (31.0-35.0); Mean Corpuscular Hemoglobin 27.3 pg (27.0-33.0); Mean Corpuscular Volume 95.1 fL (80.0-98.0); Mean Platelet Volume 11.2 fL (9.4-12.3); Monocytes Percent Auto 5.4 % (2-11); Neutrophils Absolute Auto 17.3 x10*3/uL (2.0-8.3); Neutrophils Percent Auto 91.7 % (45-73); Platelet Count 193 X10*3/uL (160-400); Red Cell Distribution Width 15.5 % (11.0-16.0); SCAN SMEAR FLAG 1; White Blood Count 18.8 X10*3/uL (4.8-10.8)
[2024-06-12] MEDS: levalbuterol HCL 1.25 MG/3 ML VIAL.NEB INHALE (09:05)
[2024-06-12 09:11] LABS: SLIDE REVIEW VERIFIED
[2024-06-12 09:15] LABS: Magnesium 2.2 mg/dL (1.6-2.6)
[2024-06-12 09:21] LABS: Anion Gap 12 (12-20); Blood Urea Nitrogen 37 mg/dL (9-16); Calcium 8.9 mg/dL (8.4-10.2); Carbon Dioxide 38 mmol/L (22-29); Chloride 99 mmol/L (96-108); Creatinine Clr Calc Pharmacy 35.1; Estimated Glomerular Filt Rate 48; Glucose Random 154 mg/dL (60-115); Magnesium 2.2 mg/dL (1.6-2.6); Potassium 4.6 mmol/L (3.3-5.1); Sodium 144 mmol/L (135-145)
[2024-06-12 09:25] LABS: B Type Natriuretic Peptide 293 pg/mL (<100)
--- NOTE | 2024-06-12 10:53 | PM.CNCAR ---
History of Present Illness History of Present Illness Date of Service: 06/12/24 Chief complaint: Acute on Chronic Hypoxic Resp. Failure Narrative: This is a cardiology consultation regarding atrial fibrillation and rapid ventricular response. Per a prior consultation, she has a history of RV dysfunction, rzez-ni-bovswjzh aortic stenosis and moderate pulmonary hypertension. She also has chronic atrial fibrillation on rate control management. Current admission is because of shortness of breath. She does not have any chest pain or palpitations or anything else. Admitted for diagnosis of respiratory failure. In that context, she also had atrial fibrillation rapid rate and got diltiazem. Currently, she states she feels much better. Review of Systems Review of Systems: Yes all other systems are reviewed and are negative Constitutional: Constitutional: Reports as per HPI and Reports no additional constitutional complaints Eyes: Eyes: Reports as per HPI and Denies no additional eye complaints ENT: Denies system reviewed and no additional complaints, except as documented and Reports as per HPI Cardiovascular: Cardiovascular: Reports as per HPI, Reports no additional cardiovascular complaints, Denies acrocyanosis, Denies cool extremities, Denies chest pain, Denies leg edema, Denies lightheadedness, Denies palpitations and Reports dyspnea Respiratory: Respiratory: Reports as per HPI, Denies no additional respiratory complaints and Reports dyspnea Gastrointestinal: Gastrointestinal: Reports as per HPI and Denies no additional gastrointestinal complaints Genitourinary: Genitourinary: Reports as per HPI Musculoskeletal: Musculoskeletal: Reports no additional musculoskeletal complaints and Reports as per HPI Integumentary/Breasts: Skin/Breast: Reports system reviewed and no additional complaints, except as docu Neurologic: Reports system reviewed and no additional complaints, except as documented and Reports as per HPI Psychiatric: Psychiatric: Reports no additional psychiatric complaints and Reports as per HPI Endocrine: Endocrine: Reports no additional endocrine complaints, Reports as per HPI and Denies palpitations Hematologic/Lymphatic: Hematologic/Lymphatic: Reports no additional hematologic/lymphatic complaints and Reports as per HPI Allergic/Immunologic: Allergic/Immunologic: Reports no additional allergic/immunologic complaints and Reports as per HPI [facility] Past Medical History Medical History (Updated 06/12/24 @ 10:56 by Landon Knutson MD) Pleural effusion Atrial fibrillation History of cancer of upper lobe bronchus or lung Age-related osteoporosis without current pathological fracture History of right breast cancer Mesenteric ischemia Diverticular disease Congestive heart failure Degenerative disc disease Coronary artery disease Obesity (BMI 30-39.9) Peripheral vascular disease Hypercholesterolemia TIA (transient ischemic attack) Anemia Breast cancer Small cell lung cancer, right lower lobe HTN (hypertension) COPD (chronic obstructive pulmonary disease) Family History Family History Father Heart disease Mother Heart disease Brother Multiple myeloma Brother Lung cancer Surgical History Surgical History History of lumpectomy of right breast H/O resection of small bowel Social History Social History (Updated 04/01/24 @ 10:23 by Tonya Paredes LPN) Household Members: Children Housing: Apartment Are you a primary managed care specialist to a significant other at home: No Do you presently have visiting nurse or other home services: No Alcohol intake: never Patient Tobacco Use Status: Former Tobacco user Tobacco use type: Cigarette e-Cigarette/Vaping Use: Never Used Second Hand Smoke Exposure: No Advance Directives Date on File: 01/08/24 service: No Current occupational status: retired Current occupational exposures/hazards: No Cognitive needs: Yes (walker) Hearing needs: Yes Vision needs: Yes (glasses) Meds Allergies Allergy/AdvReac Type Severity Reaction Status Date / Time ADONIS Inhibitors Allergy Severe ANGIOEDEMA Verified 06/10/24 16:51 [Adonis Inhibitors] Sulfa (Sulfonamide Allergy Intermediate CHILLS Verified 06/10/24 16:51 Antibiotics) [Sulfa (Sulfonamides)] Active Medications: Current Medications Acetaminophen (Acetaminophen 325 Mg Tablet) 975 mg PO Q6H PRN PRN Reason: Pain, Mild 1-3,fever,headache Apixaban (Apixaban 5 Mg Tablet) 5 mg PO BID [facility] Last Admin: 06/12/24 08:16 Dose: 5 mg Ascorbic Acid (Ascorbic Acid 500 Mg Tablet) 500 mg PO BID [facility] Last Admin: 06/12/24 08:16 Dose: 500 mg Atorvastatin Calcium (Atorvastatin Calcium 20 Mg Tablet) 20 mg PO BEDTIME [facility] Last Admin: 06/11/24 20:06 Dose: 20 mg Benzocaine (Throat Lozenge, Medicated Lozenge) 1 lozenge MUCOUS MEM Q2H PRN PRN Reason: Sore Throat Ceftriaxone Sodium (Ceftriaxone Sodium 1 Gm Vial) 1 gm IVPUSH Q24H [facility] Last Admin: 06/11/24 18:18 Dose: 1 gm Cyanocobalamin (Cyanocobalamin (Vitamin B-12) 1,000 Mcg Tablet) 1,000 mcg PO DAILY [facility] Last Admin: 06/12/24 08:16 Dose: 1,000 mcg Diltiazem HCl (Diltiazem Hcl Cd 180 Mg Cap.Er.24h) 180 mg PO DAILY [facility]; Protocol Last Admin: 06/12/24 08:15 Dose: 180 mg Fluticasone/Umeclidinium/Vilanterol (Fluticasone/Umeclidinium/Vilanterol 100/62.5/25 Blst.W.Dev) 1 puff INHALE RDAILY [facility] Last Admin: 06/12/24 07:33 Dose: Not Given Furosemide (Furosemide 40 Mg/4 Ml Vial) 40 mg IVPUSH BID@0800,1500 [facility]; Protocol Last Admin: 06/12/24 08:16 Dose: 40 mg Glucose (Glucose Gel 15 Gm Gel..Gram.) 15 gm PO Q15M PRN; Protocol PRN Reason: per Hypoglycemia Standing Ord. Dextrose (D10) 250 mls @ 750 mls/hr IV Q15M PRN; Protocol PRN Reason: per Hypoglycemia Standing Ord. Insulin Human Lispro (Insulin Lispro 100 Unit/Ml 3 Ml Vial) 0 unit SUBCUT QIDACHS [facility]; Protocol Last Admin: 06/12/24 08:16 Dose: 2 unit Isosorbide Mononitrate (Isosorbide Mononitrate 30 Mg Tab.Er.24h) 30 mg PO DAILY [facility]; Protocol Last Admin: 06/12/24 08:15 Dose: 30 mg Levalbuterol HCl (Levalbuterol Hcl 1.25 Mg/3 Ml Vial.Neb) 1.25 mg INHALE Q3H PRN PRN Reason: Wheezing Last Admin: 06/12/24 09:05 Dose: 1.25 mg Metoprolol Tartrate (Metoprolol Tartrate 50 Mg Tablet) 50 mg PO BID [facility]; Protocol Last Admin: 06/12/24 08:16 Dose: 50 mg Potassium Chloride (Potassium Chloride Er 20 Meq Tab.Er.Prt) 20 meq PO Q2D [facility] Last Admin: 06/11/24 16:27 Dose: 20 meq Prednisone (Prednisone 20 Mg Tablet) 40 mg PO DAILY [facility] Last Admin: 06/12/24 08:16 Dose: 40 mg Sodium Chloride (0.9 % Sodium Chloride Flush 3 Ml Syringe) 3 ml IVFLUSH QSHIFT [facility] Last Admin: 06/12/24 08:15 Dose: 3 ml Vitamin D (Cholecalciferol (Vitamin D3) 25 Mcg Tablet) 25 mcg PO DAILY [facility] Last Admin: 06/12/24 08:16 Dose: 25 mcg Home Medications ?Medication ?Instructions ?Recorded ?Confirmed ?Last Taken ?Type ascorbic acid (vitamin C) 500 mg 500 mg PO BID 01/08/24 06/11/24 06/10/24 History tablet (Vitamin C) cholecalciferol (vitamin D3) 25 25 mcg PO DAILY 01/08/24 06/11/24 06/10/24 History mcg (1,000 unit) capsule (Vitamin D3) cyanocobalamin (vitamin B-12) 1,000 mcg PO DAILY 01/08/24 06/11/24 06/10/24 History 1,000 mcg tablet (Vitamin B-12) fluticasone propionate 50 1 spray intranasal DAILY PRN 01/08/24 06/11/24 Unknown History mcg/actuation nasal Allergy Symptoms spray,suspension atorvastatin 20 mg tablet 20 mg PO BEDTIME 06/11/24 06/11/24 Unknown History fluticasone fur. 100 mcg-umeclid 1 ea inhalation DAILY 06/11/24 06/11/24 06/10/24 History 62.5 mcg-vilant 25 mcg inhalat.powder (Trelegy Ellipta) Physical Exam Vital Signs: Vital Signs: Last Vital Signs Temp 97.3 F 06/12/24 07:44 Pulse 78 06/12/24 09:08 Resp 20 06/12/24 09:08 BP 158/70 H 06/12/24 08:16 Pulse Ox 91 L 06/12/24 07:44 O2 Del Method Nasal Cannula 06/12/24 07:44 O2 Flow Rate 4 06/12/24 07:44 Oxygen Flow Rate 3 06/10/24 16:45 BMI result Body Mass Index 30.8 Const: General: comfortable and no acute distress Orientation/consciousness: patient oriented x3 HEENT: Other: Unremarkable Head: Yes normal to inspection Neck: Neck: Yes normal visual inspection Chest: Chest palpation & inspection: normal inspection of the chest Resp: Auscultation: wheezes and diminished lung sounds Cardio: Palpation: normal PMI Heart sounds: S1 normal heart sound present, S2 normal heart sound present, no gallops, no murmurs and no rubs GI: Palpation (GI): Soft to palpation Back/Spine/Pelvis: Other: unremarkable Skin: General skin exam: no rashes or lesions noted Neuro: General: patient oriented x3 Extrem: General: Yes normal to inspection Psych: Mental Status: mental status grossly normal Objective Labs and Meds 06/12/24 08:19 06/12/24 08:19 Lab results: Laboratory Results - last 24 hr 06/11/24 06/11/24 06/11/24 12:45 17:59 21:21 WBC RBC Hgb Hct MCV MCH MCHC RDW Plt Count MPV Immature Gran % (Auto) Neut % (Auto) Lymph % (Auto) [place] % (Auto) Eos % (Auto) Baso % (Auto) Lymph # (Auto) [place] # (Auto) Eos # (Auto) Baso # (Auto) Abs Immat Gran (auto) Absolute Neuts (auto) Absolute Nucleated RBC Nucleated RBC % (auto) Smear Tech's Comments Sodium Potassium Chloride Carbon Dioxide Anion Gap BUN Creatinine Estim Creat Clear Calc Estimated GFR POC Glucose 203 H 197 H 175 H Random Glucose Calcium Magnesium B-Natriuretic Peptide 06/12/24 06/12/24 06/12/24 07:14 08:19 08:19 WBC 18.8 H RBC 4.10 L Hgb 11.2 L Hct 39.0 MCV 95.1 MCH 27.3 MCHC 28.7 L RDW 15.5 Plt Count 193 MPV 11.2 Immature Gran % (Auto) 0.8 H Neut % (Auto) 91.7 H Lymph % (Auto) 2.0 L [place] % (Auto) 5.4 Eos % (Auto) 0.0 Baso % (Auto) 0.1 Lymph # (Auto) 0.4 L [place] # (Auto) 1.0 Eos # (Auto) 0.0 Baso # (Auto) 0.0 Abs Immat Gran (auto) 0.16 H Absolute Neuts (auto) 17.3 H Absolute Nucleated RBC 0.000 Nucleated RBC % (auto) 0.0 Smear Tech's Comments VERIFIED Sodium 144 Potassium 4.6 Chloride 99 Carbon Dioxide 38 H Anion Gap 12 BUN 37 H Creatinine 1.08 Estim Creat Clear Calc 35.1 Estimated GFR 48 POC Glucose 154 H Random Glucose 154 H Calcium 8.9 Magnesium 2.2 2.2 B-Natriuretic Peptide 293 H ECG Interpretation: EKG with atrial fibrillation at 93/Min. Assessment and Plan (1) Acute hypoxic respiratory failure: Status: Acute (2) Atrial fibrillation with rapid ventricular response: Status: Acute Plan Cardiac BNP is on the higher side but chronic. Troponin not checked but she does not have any ACS type symptoms either. It seems she did have atrial fibrillation rapid rate upon arrival but seems controlled now. Most likely COPD exacerbation contributing to atrial fibrillation with rapid rate. She can resume her usual medications for atrial fibrillation. Continue anticoagulation. Appropriate treatment of COPD. Empiric diuretics but suspect more of COPD than heart failure. There is also mention of right lower lobe pulmonary lesion suspicious for neoplasm on the CT scan and that needs workup. Discussed with Dr. Contreras. Procedures Date of Service Date of Service: 06/12/24
[2024-06-12 11:04] LABS: Anion Gap 14 (12-20); Blood Urea Nitrogen 37 mg/dL (9-16); Carbon Dioxide 37 mmol/L (22-29); Chloride 96 mmol/L (96-108); Creatinine Clr Calc Pharmacy 31.4; Estimated Glomerular Filt Rate 42; Glucose Random 250 mg/dL (60-115); Potassium 4.2 mmol/L (3.3-5.1); Sodium 143 mmol/L (135-145)
[2024-06-12 11:26] LABS: Glucose, Whole Blood 236 mg/dL (60-115)
--- NOTE | 2024-06-12 11:45 | MHC.CM.PN ---
PT REPORTS SHE IS MOSTLY INDEPENDENT WITH CARE, HOWEVER HER DAUGHTER LIVES WITH HER AND ASSISTS PRN PT USES A CANE, WALKER AND HOME OXYGEN FROM [facility] FOR DME HCP ON FILE PCP: KELY RODRIGUEZ IMM DELIVERED DCP: HOME WITH RESUMPTION OF FAMILY SUPPORT FAMILY TO TRANSPORT
--- NOTE | 2024-06-12 12:30 | HO.PM.IMPN ---
Subjective Subjective Date of Service: 06/12/24 Interval History: chf ,? pneumonia vs atelactsis pleural effusion Review of Systems sob seems improving dry cough no fever Physical Exam Vital Signs: Vital Signs: Last Vital Signs Temp 97.8 F 06/12/24 11:04 Pulse 77 06/12/24 11:04 Resp 20 06/12/24 11:04 BP 124/58 L 06/12/24 11:04 Pulse Ox 92 06/12/24 11:04 O2 Del Method Oxymask 06/12/24 11:04 O2 Flow Rate 6 06/12/24 11:04 Oxygen Flow Rate 3 06/10/24 16:45 BMI result Body Mass Index 30.8 Appearance: Alert.? Oriented X3.? cvs: rrr, [id number] . res: air entry fair ,somewhat diminshed at bases, few scattered rales abd: no rebound or guarding ,nt, bs present. ext pulses present , no cyanosis , 1+edema. neuro: axo3 , nonfocal. Objective Data Active Medications Acetaminophen (Acetaminophen 325 Mg Tablet) 975 mg PO Q6H PRN PRN Reason: Pain, Mild 1-3,fever,headache Apixaban (Apixaban 5 Mg Tablet) 5 mg PO BID [facility] Last Admin: 06/12/24 08:16 Dose: 5 mg Documented By: JATINDER Ascorbic Acid (Ascorbic Acid 500 Mg Tablet) 500 mg PO BID [facility] Last Admin: 06/12/24 08:16 Dose: 500 mg Documented By: JATINDER Atorvastatin Calcium (Atorvastatin Calcium 20 Mg Tablet) 20 mg PO BEDTIME [facility] Last Admin: 06/11/24 20:06 Dose: 20 mg Documented By: LESA Benzocaine (Throat Lozenge, Medicated Lozenge) 1 lozenge MUCOUS MEM Q2H PRN PRN Reason: Sore Throat Ceftriaxone Sodium (Ceftriaxone Sodium 1 Gm Vial) 1 gm IVPUSH Q24H [facility] Last Admin: 06/11/24 18:18 Dose: 1 gm Documented By: JATINDER Cyanocobalamin (Cyanocobalamin (Vitamin B-12) 1,000 Mcg Tablet) 1,000 mcg PO DAILY [facility] Last Admin: 06/12/24 08:16 Dose: 1,000 mcg Documented By: JATINDER Diltiazem HCl (Diltiazem Hcl Cd 180 Mg Cap.Er.24h) 180 mg PO DAILY [facility]; Protocol Last Admin: 06/12/24 08:15 Dose: 180 mg Documented By: JATINDER Fluticasone/Umeclidinium/Vilanterol (Fluticasone/Umeclidinium/Vilanterol 100/62.5 Blst.W.Dev) 1 puff INHALE RDAILY [facility] Last Admin: 06/12/24 07:33 Dose: Not Given Documented By: MARIA T Non-Admin Reason: med unavail. pharmacy called Furosemide (Furosemide 40 Mg/4 Ml Vial) 40 mg IVPUSH BID@0800,1500 [facility]; Protocol Last Admin: 06/12/24 08:16 Dose: 40 mg Documented By: JATINDER Glucose (Glucose Gel 15 Gm Gel..Gram.) 15 gm PO Q15M PRN; Protocol PRN Reason: per Hypoglycemia Standing Ord. Dextrose (D10) 250 mls @ 750 mls/hr IV Q15M PRN; Protocol PRN Reason: per Hypoglycemia Standing Ord. Insulin Human Lispro (Insulin Lispro 100 Unit/Ml 3 Ml Vial) 0 unit SUBCUT QIDACHS [facility]; Protocol Last Admin: 06/12/24 11:49 Dose: 4 unit Documented By: JATINDER Isosorbide Mononitrate (Isosorbide Mononitrate 30 Mg Tab.Er.24h) 30 mg PO DAILY [facility]; Protocol Last Admin: 06/12/24 08:15 Dose: 30 mg Documented By: JATINDER Levalbuterol HCl (Levalbuterol Hcl 1.25 Mg/3 Ml Vial.Neb) 1.25 mg INHALE Q3H PRN PRN Reason: Wheezing Last Admin: 06/12/24 09:05 Dose: 1.25 mg Documented By: MARIA T Metoprolol Tartrate (Metoprolol Tartrate 50 Mg Tablet) 50 mg PO BID [facility]; Protocol Last Admin: 06/12/24 08:16 Dose: 50 mg Documented By: JATINDER Potassium Chloride (Potassium Chloride Er 20 Meq Tab.Er.Prt) 20 meq PO Q2D [facility] Last Admin: 06/11/24 16:27 Dose: 20 meq Documented By: BIRGIT Prednisone (Prednisone 20 Mg Tablet) 40 mg PO DAILY [facility] Last Admin: 06/12/24 08:16 Dose: 40 mg Documented By: JATINDER Sodium Chloride (0.9 % Sodium Chloride Flush 3 Ml Syringe) 3 ml IVFLUSH QSHIFT [facility] Last Admin: 06/12/24 08:15 Dose: 3 ml Documented By: JATINDER Vitamin D (Cholecalciferol (Vitamin D3) 25 Mcg Tablet) 25 mcg PO DAILY [facility] Last Admin: 06/12/24 08:16 Dose: 25 mcg Documented By: JATINDER Labs 06/12/24 08:19 06/12/24 10:34 Labs: Laboratory Results - last 24 hr 06/11/24 06/11/24 06/11/24 12:45 17:59 21:21 MCV MCH MCHC RDW Plt Count MPV Immature Gran % (Auto) Neut % (Auto) Lymph % (Auto) [place] % (Auto) Eos % (Auto) Baso % (Auto) Lymph # (Auto) [place] # (Auto) Eos # (Auto) Baso # (Auto) Abs Immat Gran (auto) Absolute Neuts (auto) Absolute Nucleated RBC Nucleated RBC % (auto) Smear Tech's Comments Anion Gap Estim Creat Clear Calc Estimated GFR POC Glucose 203 H 197 H 175 H Random Glucose Calcium Magnesium B-Natriuretic Peptide 06/12/24 06/12/24 06/12/24 07:14 08:19 08:19 MCV 95.1 MCH 27.3 MCHC 28.7 L RDW 15.5 Plt Count 193 MPV 11.2 Immature Gran % (Auto) 0.8 H Neut % (Auto) 91.7 H Lymph % (Auto) 2.0 L [place] % (Auto) 5.4 Eos % (Auto) 0.0 Baso % (Auto) 0.1 Lymph # (Auto) 0.4 L [place] # (Auto) 1.0 Eos # (Auto) 0.0 Baso # (Auto) 0.0 Abs Immat Gran (auto) 0.16 H Absolute Neuts (auto) 17.3 H Absolute Nucleated RBC 0.000 Nucleated RBC % (auto) 0.0 Smear Tech's Comments VERIFIED Anion Gap 12 Estim Creat Clear Calc 35.1 Estimated GFR 48 POC Glucose 154 H Random Glucose 154 H Calcium 8.9 Magnesium 2.2 2.2 B-Natriuretic Peptide 293 H 06/12/24 06/12/24 10:34 11:05 MCV MCH MCHC RDW Plt Count MPV Immature Gran % (Auto) Neut % (Auto) Lymph % (Auto) [place] % (Auto) Eos % (Auto) Baso % (Auto) Lymph # (Auto) [place] # (Auto) Eos # (Auto) Baso # (Auto) Abs Immat Gran (auto) Absolute Neuts (auto) Absolute Nucleated RBC Nucleated RBC % (auto) Smear Tech's Comments Anion Gap 14 Estim Creat Clear Calc 31.4 Estimated GFR 42 POC Glucose 236 H Random Glucose 250 H Calcium 9.0 Magnesium B-Natriuretic Peptide Microbiology Microbiology Results: Microbiology 06/10/24 18:07 Blood Culture - Preliminary Blood - Venous No growth after 24 hours. 06/10/24 18:07 Blood Culture - Preliminary Blood - Venous No growth after 24 hours. Assessment and Plan (1) Acute hypoxic respiratory failure: Status: Acute (2) Pleural effusion: Status: Acute Assessment and Plan: 89 year old female with persistent atrial fibrillation anticoagulated with Eliquis, heart failure reduced ejection fraction, [id number]-hjntmacdx type 2 diabetes, COPD, chronic hypoxemic respiratory failure on 2.5/3 L at baseline, history of breast cancer, history of lung cancer 2001 admitted for further management of acute hypoxemic respiratory failure. Acute hypoxemic respiratory failure sec to acute exacerbation of heart failure reduced ejection fraction ,pleural effusions,? pneumonia CXR with bilateral pleural effusions and cardiomegaly. Symptomatic with orthopnea, dyspnea on exertion -last echocardiogram 2018 shows EF 40-45% still symtomatic plan vbg note -seems ph compensated chest ct reviewed -? pneumonia ,? lung lesion,pleural effusion strict I&O -2.3liter neg 01/22: echocardiogram: Low normal LV ejection fraction 50-55% with mild left ventricular hypertrophy need better control afib with rvr also. continue isosorbide, metoprolol, 40 mg IV Lasix daily,cardizem 180 mg po daily,monitor on telemetry with continuous O2,continue supplemental O2 to maintain oximetry around 90%. follow renal function/lytes cardiology evaluation chest ct reviewed -? pneumonia ,pleural effusion: ?spiculated lung lesion added ceftriaxone/azithromycin (01/11/24) pulm eval for copd/abnormal chest Ct. persistent atrial fibrillation-rate controlled off diltiazem drip -continue Eliquis for anticoagulation, metoprolol for rate control,adjusted diltiazem. [id number] type 2 diabetes -POC glucose, diabetic diet -Humalog on sliding scale COPD -no acute exacerbation -continue maintenance inhalers, DuoNebs p.r.n. chronic normocytic anemia -H/H baseline, above transfusion threshold DVT prophylaxis-[place] Full code Healthcare proxy-daughterJoan [phone] Patient requires inpatient stay: for management of acute CHF exacerbation requiring IV diuresis due to significant volume overload resulting in acute on chronic hypoxemic respiratory failure and will require close monitoring of I/O and renal function/electrolyte levels with possible expert consultation Quality Stroke Does the patient have a stroke diagnosis?: No VTE Prior VTE?: No VTE Risk Level:: Medical - moderate - high VTE Device Contraindication: Treatment Not Indicated VTE Drug Contraindication: N/A - Med Ordered
[2024-06-12] MEDS: Azithromycin 500 MG in 0.9 % Sodium Chloride 250 ML 125 MG IV (12:57)
[2024-06-12] MEDS: cefTRIAXone sodium 2 GM VIAL IVPUSH (12:57)
--- NOTE | 2024-06-12 14:58 | P.CONPL_ITS ---
History of Present Illness History of Present Illness Consult date: 06/12/24 Chief complaint: Acute on Chronic Hypoxic Resp. 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 Akers, also chronic right-sided systolic and left-sided diastolic congestive heart failure together with [id number] aortic stenosis and atrial fibrillation admitted on 06/11/2024 with worsening dyspnea. Treated with diuresis with improvement close to her baseline. Review of Systems 2 Constitutional: Constitutional: Denies daytime sleepiness, Denies excessive sweating, Denies fatigue, Denies fever(s), Denies lethargy, Denies malaise, Denies night sweats, Denies snoring and Denies weight loss Eyes: Eyes: Denies blurry vision and Denies itchy eyes ENT: Denies nasal congestion, Denies post nasal drip, Denies sinus pain, Denies sinus pressure and Denies other ( Thrush) Cardiovascular: Cardiovascular: Denies chest pain, Reports pedal edema, Denies dyspnea, Reports dyspnea on exertion, Denies orthopnea and Denies paroxysmal nocturnal dyspnea Respiratory: Respiratory: Denies cough, Denies hemoptysis, Denies excessive phlegm production, Denies dyspnea, Reports dyspnea on exertion, Denies snoring and Denies wheezing Gastrointestinal: Gastrointestinal: Denies abdominal pain and Denies heartburn Musculoskeletal: Musculoskeletal: Denies myalgias, Denies arthralgias and Denies joint swelling Integumentary/Breasts: Skin/Breast: Denies rash Neurologic: Denies memory loss and Denies seizure-like activity Psychiatric: Psychiatric: Denies abnormal sleep pattern, Denies anxiety and Denies memory loss Endocrine: Endocrine: Denies excessive sweating, Denies fatigue and Denies heat intolerance Hematologic/Lymphatic: Hematologic/Lymphatic: Denies easy bruising Allergic/Immunologic: Allergic/Immunologic: Denies itchy eyes, Denies seasonal rhinorrhea and Denies wheezing PMFSH Past Medical History Medical History (Updated 06/12/24 @ 15:05 by Ismael Marino MD) Pleural effusion Atrial fibrillation History of cancer of upper lobe bronchus or lung Age-related osteoporosis without current pathological fracture History of right breast cancer Mesenteric ischemia Diverticular disease Congestive heart failure Degenerative disc disease Coronary artery disease Obesity (BMI 30-39.9) Peripheral vascular disease Hypercholesterolemia TIA (transient ischemic attack) Anemia Breast cancer Small cell lung cancer, right lower lobe HTN (hypertension) COPD (chronic obstructive pulmonary disease) Family History Family History Father Heart disease Mother Heart disease Brother Multiple myeloma Brother Lung cancer Surgical History Surgical History History of lumpectomy of right breast H/O resection of small bowel Social History Social History (Updated 04/01/24 @ 10:23 by Tonya Paredes LPN) Household Members: Children Housing: Apartment Are you a primary rental boats caretaker to a significant other at home: No Do you presently have visiting nurse or other home services: No Alcohol intake: never Patient Tobacco Use Status: Former Tobacco user Tobacco use type: Cigarette e-Cigarette/Vaping Use: Never Used Second Hand Smoke Exposure: No Advance Directives Date on File: 01/08/24 service: No Current occupational status: retired Current occupational exposures/hazards: No Cognitive needs: Yes (walker) Hearing needs: Yes Vision needs: Yes (glasses) Meds Allergies Allergy/AdvReac Type Severity Reaction Status Date / Time ADONIS Inhibitors Allergy Severe ANGIOEDEMA Verified 06/10/24 16:51 [Adonis Inhibitors] Sulfa (Sulfonamide Allergy Intermediate CHILLS Verified 06/10/24 16:51 Antibiotics) [Sulfa (Sulfonamides)] Active Medications: Current Medications Acetaminophen (Acetaminophen 325 Mg Tablet) 975 mg PO Q6H PRN PRN Reason: Pain, Mild 1-3,fever,headache Apixaban (Apixaban 5 Mg Tablet) 5 mg PO BID [facility] Last Admin: 06/12/24 08:16 Dose: 5 mg Ascorbic Acid (Ascorbic Acid 500 Mg Tablet) 500 mg PO BID [facility] Last Admin: 06/12/24 08:16 Dose: 500 mg Atorvastatin Calcium (Atorvastatin Calcium 20 Mg Tablet) 20 mg PO BEDTIME [facility] Last Admin: 06/11/24 20:06 Dose: 20 mg Benzocaine (Throat Lozenge, Medicated Lozenge) 1 lozenge MUCOUS MEM Q2H PRN PRN Reason: Sore Throat Ceftriaxone Sodium (Ceftriaxone Sodium 2 Gm Vial) 2 gm IVPUSH Q24H [facility] Last Admin: 06/12/24 12:57 Dose: 2 gm Cyanocobalamin (Cyanocobalamin (Vitamin B-12) 1,000 Mcg Tablet) 1,000 mcg PO DAILY [facility] Last Admin: 06/12/24 08:16 Dose: 1,000 mcg Diltiazem HCl (Diltiazem Hcl Cd 180 Mg Cap.Er.24h) 180 mg PO DAILY [facility]; Protocol Last Admin: 06/12/24 08:15 Dose: 180 mg Fluticasone/Umeclidinium/Vilanterol (Fluticasone/Umeclidinium/Vilanterol 100/62.5/25 Blst.W.Dev) 1 puff INHALE RDAILY [facility] Last Admin: 06/12/24 07:33 Dose: Not Given Furosemide (Furosemide 40 Mg/4 Ml Vial) 40 mg IVPUSH BID@0800,1500 [facility]; Protocol Last Admin: 06/12/24 08:16 Dose: 40 mg Glucose (Glucose Gel 15 Gm Gel..Gram.) 15 gm PO Q15M PRN; Protocol PRN Reason: per Hypoglycemia Standing Ord. Dextrose (D10) 250 mls @ 750 mls/hr IV Q15M PRN; Protocol PRN Reason: per Hypoglycemia Standing Ord. Azithromycin 500 mg/ Sodium (Chloride) 250 mls @ 125 mls/hr IV Q24H [facility] Last Admin: 06/12/24 12:57 Dose: 125 mls/hr Insulin Human Lispro (Insulin Lispro 100 Unit/Ml 3 Ml Vial) 0 unit SUBCUT QIDACHS [facility]; Protocol Last Admin: 06/12/24 11:49 Dose: 4 unit Isosorbide Mononitrate (Isosorbide Mononitrate 30 Mg Tab.Er.24h) 30 mg PO DAILY [facility]; Protocol Last Admin: 06/12/24 08:15 Dose: 30 mg Levalbuterol HCl (Levalbuterol Hcl 1.25 Mg/3 Ml Vial.Neb) 1.25 mg INHALE Q3H PRN PRN Reason: Wheezing Last Admin: 06/12/24 09:05 Dose: 1.25 mg Metoprolol Tartrate (Metoprolol Tartrate 50 Mg Tablet) 50 mg PO BID [facility]; Protocol Last Admin: 06/12/24 08:16 Dose: 50 mg Potassium Chloride (Potassium Chloride Er 20 Meq Tab.Er.Prt) 20 meq PO Q2D [facility] Last Admin: 06/11/24 16:27 Dose: 20 meq Prednisone (Prednisone 20 Mg Tablet) 40 mg PO DAILY [facility] Last Admin: 06/12/24 08:16 Dose: 40 mg Sodium Chloride (0.9 % Sodium Chloride Flush 3 Ml Syringe) 3 ml IVFLUSH QSHIFT [facility] Last Admin: 06/12/24 08:15 Dose: 3 ml Vitamin D (Cholecalciferol (Vitamin D3) 25 Mcg Tablet) 25 mcg PO DAILY [facility] Last Admin: 06/12/24 08:16 Dose: 25 mcg Home Medications ?Medication ?Instructions ?Recorded ?Confirmed ?Last Taken ?Type ascorbic acid (vitamin C) 500 mg 500 mg PO BID 01/08/24 06/11/24 06/10/24 History tablet (Vitamin C) cholecalciferol (vitamin D3) 25 25 mcg PO DAILY 01/08/24 06/11/24 06/10/24 History mcg (1,000 unit) capsule (Vitamin D3) cyanocobalamin (vitamin B-12) 1,000 mcg PO DAILY 01/08/24 06/11/24 06/10/24 History 1,000 mcg tablet (Vitamin B-12) fluticasone propionate 50 1 spray intranasal DAILY PRN 01/08/24 06/11/24 Unknown History mcg/actuation nasal Allergy Symptoms spray,suspension atorvastatin 20 mg tablet 20 mg PO BEDTIME 06/11/24 06/11/24 Unknown History fluticasone fur. 100 mcg-umeclid 1 ea inhalation DAILY 06/11/24 06/11/24 06/10/24 History 62.5 mcg-vilant 25 mcg inhalat.powder (Trelegy Ellipta) Physical Exam 2 Vital Signs: Vital Signs: Last Vital Signs Temp 97.8 F 06/12/24 11:04 Pulse 77 06/12/24 11:04 Resp 20 06/12/24 11:04 BP 124/58 L 06/12/24 11:04 Pulse Ox 92 06/12/24 11:04 O2 Del Method Oxymask 06/12/24 11:04 O2 Flow Rate 6 06/12/24 11:04 Oxygen Flow Rate 3 06/10/24 16:45 BMI result Body Mass Index 30.8 Const: General: no acute distress and alert Nutritional Appearance: not obese Orientation/consciousness: Other orientation findings ( oriented) HEENT: Head: Yes atraumatic Eyes: General: appearance normal, both eyes and all related structures S clerae: sclerae normal EOM: EOMs intact bilaterally Neck: Neck: Yes supple Lymphatic: no lymphadenopathy noted Resp: Effort & Inspection: normal respiratory effort and no use of accessory muscles Auscultation: clear to auscultation bilaterally Cardio: Rate: regular rate Rhythm: regular rhythm Heart sounds: no gallops, no murmurs and no rubs Skin: General skin exam: other ( warm) Extrem: General: No clubbing, No cyanosis and Yes edema (1+ bilateral) Results Laboratory Findings 06/12/24 08:19 06/12/24 10:34 Abnormal lab findings: Abnormal Labs 06/10/24 06/10/24 06/10/24 17:02 17:18 21:48 WBC RBC 4.10 L Hgb 11.2 L MCHC 28.8 L Immature Gran % (Auto) 0.6 H Neut % (Auto) 83.9 H Lymph % (Auto) 7.1 L Lymph # (Auto) 0.6 L Abs Immat Gran (auto) 0.05 H Absolute Neuts (auto) VBG pH 7.66 H* VBG HCO3 46 H 39 H Carbon Dioxide 40 H* Anion Gap 9 L BUN 24 H POC Glucose Random Glucose 183 H Hemoglobin A1c % Total Bilirubin 1.3 H B-Natriuretic Peptide 664 H 06/11/24 06/11/24 06/11/24 07:14 09:15 12:45 WBC RBC Hgb MCHC Immature Gran % (Auto) Neut % (Auto) Lymph % (Auto) Lymph # (Auto) Abs Immat Gran (auto) Absolute Neuts (auto) VBG pH VBG HCO3 Carbon Dioxide Anion Gap BUN POC Glucose 227 H 203 H Random Glucose Hemoglobin A1c % 6.5 H Total Bilirubin B-Natriuretic Peptide 06/11/24 06/11/24 06/12/24 17:59 21:21 07:14 WBC RBC Hgb MCHC Immature Gran % (Auto) Neut % (Auto) Lymph % (Auto) Lymph # (Auto) Abs Immat Gran (auto) Absolute Neuts (auto) VBG pH VBG HCO3 Carbon Dioxide Anion Gap BUN POC Glucose 197 H 175 H 154 H Random Glucose Hemoglobin A1c % Total Bilirubin B-Natriuretic Peptide 06/12/24 06/12/24 06/12/24 08:19 10:34 11:05 WBC 18.8 H RBC 4.10 L Hgb 11.2 L MCHC 28.7 L Immature Gran % (Auto) 0.8 H Neut % (Auto) 91.7 H Lymph % (Auto) 2.0 L Lymph # (Auto) 0.4 L Abs Immat Gran (auto) 0.16 H Absolute Neuts (auto) 17.3 H VBG pH VBG HCO3 Carbon Dioxide 38 H 37 H Anion Gap BUN 37 H 37 H POC Glucose 236 H Random Glucose 154 H 250 H Hemoglobin A1c % Total Bilirubin B-Natriuretic Peptide 293 H Microbiology: Microbiology 06/10/24 18:07 Blood - Venous Blood Culture - Preliminary No growth after 24 hours. 06/10/24 18:07 Blood - Venous Blood Culture - Preliminary No growth after 24 hours. Assessment and Plan (1) Acute and chronic respiratory failure with hypoxia: Status: Acute (2) Congestive heart failure: Qualifiers: Heart failure type: unspecified Heart failure chronicity: unspecified Qualified Code(s): I50.9 - Heart failure, unspecified Status: Acute (3) COPD (chronic obstructive pulmonary disease): Qualifiers: COPD type: emphysema Emphysema type: unspecified Qualified Code(s): J 43.9 - Emphysema, unspecified Status: Acute Plan Impression: 89-year-old lady admitted with dyspnea secondary to acute on chronic hypoxic respiratory failure secondary to congestive heart failure, also with underlying COPD. CT chest reviewed and demonstrates bilateral pleural effusions, moderate right-sided with some loculation, likely secondary to chronicity and small left-sided. Respiratory status improved significantly and is essentially at baseline with empiric diuresis. Recommendations: Would advise against thoracentesis as pleural effusions appear to be chronic and related to underlying chronic congestive heart failure. Agree with further judicious diuresis and continuation of outpatient Trelegy and albuterol MDI. Procedures Date of Service Date of Service: 06/12/24
[2024-06-12 15:19] LABS: Glucose, Whole Blood 110 mg/dL (60-115)
[2024-06-12] MEDS: Atorvastatin Calcium 20 MG TABLET PO (20:53)
[2024-06-12 21:08] LABS: Glucose, Whole Blood 176 mg/dL (60-115)
[2024-06-13] VITALS (8 sets, daily range): BP systolic 121–138; BP diastolic 58–87; PULSE 74–90; RESP 16–20; TEMP 36.5–37.2; O2SAT 88–97
[2024-06-13] MEDS: Isosorbide Mononitrate 30 MG TAB.ER.24H PO (07:41)
[2024-06-13] MEDS: Furosemide 40 MG/4 ML VIAL IVPUSH (07:41)
[2024-06-13] MEDS: predniSONE 20 MG TABLET 40 MG PO (07:41)
[2024-06-13] MEDS: Ascorbic Acid 500 MG TABLET PO ×2 (07:41→20:29)
[2024-06-13] MEDS: dilTIAZem HCL CD 180 MG CAP.ER.24H PO (07:41)
[2024-06-13] MEDS: Metoprolol Tartrate 50 MG TABLET PO ×2 (07:41→20:29)
[2024-06-13] MEDS: Cholecalciferol (Vitamin D3) 25 MCG TABLET PO (07:41)
[2024-06-13 07:42] LABS: Glucose, Whole Blood 110 mg/dL (60-115)
[2024-06-13] MEDS: Apixaban 5 MG TABLET PO ×2 (07:42→20:29)
[2024-06-13] MEDS: 0.9 % Sodium Chloride Flush 3 ML SYRINGE IVFLUSH ×3 (07:42→20:36)
[2024-06-13] MEDS: Cyanocobalamin (Vitamin B-12) 1,000 MCG TABLET 1000 MCG PO (07:43)
[2024-06-13] MEDS: Fluticasone/Umeclidinium/Vilanterol 100/62.5/25 BLST.W.DEV 1 PUFF INHALE (07:51)
[2024-06-13] MEDS: cefuroxime axetiL 500 MG TABLET PO ×2 (08:17→20:29)
[2024-06-13 11:50] LABS: Glucose, Whole Blood 200 mg/dL (60-115)
[2024-06-13] MEDS: Insulin Lispro 100 UNIT/ML 3 ML VIAL SUBCUT ×2 (12:14→20:40)
--- NOTE | 2024-06-13 14:13 | P.PNIM_ITS ---
Subjective Subjective Date of Service: 06/13/24 Interval History: chf ,? pneumonia vs atelactsis pleural effusion Review of Systems sob with minimal excersion dry cough no fever Physical Exam 2 Vital Signs: Vital Signs: Last Vital Signs Temp 98.2 F 06/13/24 11:18 Pulse 85 06/13/24 11:18 Resp 16 06/13/24 11:18 BP 121/65 06/13/24 11:18 Pulse Ox 92 06/13/24 11:18 O2 Del Method Oxymask 06/13/24 11:18 O2 Flow Rate 3 06/13/24 11:18 Oxygen Flow Rate 3 06/10/24 16:45 BMI result Body Mass Index 30.8 Appearance: Alert.? Oriented X3.? cvs: rrr, [id number] . res: air entry fair ,somewhat diminshed at bases, few scattered rales abd: no rebound or guarding ,nt, bs present. ext pulses present , no cyanosis , 1+edema. neuro: axo3 , nonfocal. Objective Data Active Medications Acetaminophen (Acetaminophen 325 Mg Tablet) 975 mg PO Q6H PRN PRN Reason: Pain, Mild 1-3,fever,headache Apixaban (Apixaban 5 Mg Tablet) 5 mg PO BID [facility] Last Admin: 06/13/24 07:42 Dose: 5 mg Documented By: CHERYLE Ascorbic Acid (Ascorbic Acid 500 Mg Tablet) 500 mg PO BID [facility] Last Admin: 06/13/24 07:41 Dose: 500 mg Documented By: CHERYLE Atorvastatin Calcium (Atorvastatin Calcium 20 Mg Tablet) 20 mg PO BEDTIME [facility] Last Admin: 06/12/24 20:53 Dose: 20 mg Documented By: AYLIN-JOZEJuan Alberto Benzocaine (Throat Lozenge, Medicated Lozenge) 1 lozenge MUCOUS MEM Q2H PRN PRN Reason: Sore Throat Cefuroxime Axetil (Cefuroxime Axetil 500 Mg Tablet) 500 mg PO Q12H [facility] Last Admin: 06/13/24 08:17 Dose: 500 mg Documented By: CHERYLE Cyanocobalamin (Cyanocobalamin (Vitamin B-12) 1,000 Mcg Tablet) 1,000 mcg PO DAILY [facility] Last Admin: 06/13/24 07:43 Dose: 1,000 mcg Documented By: CHERYLE Diltiazem HCl (Diltiazem Hcl Cd 180 Mg Cap.Er.24h) 180 mg PO DAILY [facility]; Protocol Last Admin: 06/13/24 07:41 Dose: 180 mg Documented By: CHERYLE Fluticasone/Umeclidinium/Vilanterol (Fluticasone/Umeclidinium/Vilanterol 100/62.5/25 Blst.W.Dev) 1 puff INHALE RDAILY [facility] Last Admin: 06/13/24 07:51 Dose: 1 puff Documented By: PARDEEP Furosemide (Furosemide 40 Mg/4 Ml Vial) 40 mg IVPUSH DAILY [facility]; Protocol Last Admin: 06/13/24 08:05 Dose: Not Given Documented By: CHERYLE Non-Admin Reason: already gave dose when was ordered BID Glucose (Glucose Gel 15 Gm Gel..Gram.) 15 gm PO Q15M PRN; Protocol PRN Reason: per Hypoglycemia Standing Ord. Dextrose (D10) 250 mls @ 750 mls/hr IV Q15M PRN; Protocol PRN Reason: per Hypoglycemia Standing Ord. Insulin Human Lispro (Insulin Lispro 100 Unit/Ml 3 Ml Vial) 0 unit SUBCUT QIDACHS [facility]; Protocol Last Admin: 06/13/24 12:14 Dose: 2 unit Documented By: CHERYLE Isosorbide Mononitrate (Isosorbide Mononitrate 30 Mg Tab.Er.24h) 30 mg PO DAILY [facility]; Protocol Last Admin: 06/13/24 07:41 Dose: 30 mg Documented By: CHERYLE Levalbuterol HCl (Levalbuterol Hcl 1.25 Mg/3 Ml Vial.Neb) 1.25 mg INHALE Q3H PRN PRN Reason: Wheezing Last Admin: 06/12/24 09:05 Dose: 1.25 mg Documented By: MARIA T Metoprolol Tartrate (Metoprolol Tartrate 50 Mg Tablet) 50 mg PO BID [facility]; Protocol Last Admin: 06/13/24 07:41 Dose: 50 mg Documented By: CHERYLE Potassium Chloride (Potassium Chloride Er 20 Meq Tab.Er.Prt) 20 meq PO Q2D [facility] Last Admin: 06/11/24 16:27 Dose: 20 meq Documented By: BIRGIT Prednisone (Prednisone 20 Mg Tablet) 40 mg PO DAILY [facility] Last Admin: 06/13/24 07:41 Dose: 40 mg Documented By: CHERYLE Sodium Chloride (0.9 % Sodium Chloride Flush 3 Ml Syringe) 3 ml IVFLUSH QSHIFT [facility] Last Admin: 06/13/24 07:42 Dose: 3 ml Documented By: CHERYLE Vitamin D (Cholecalciferol (Vitamin D3) 25 Mcg Tablet) 25 mcg PO DAILY [facility] Last Admin: 06/13/24 07:41 Dose: 25 mcg Documented By: CHERYLE Labs 06/12/24 08:19 06/12/24 10:34 Labs: Laboratory Results - last 24 hr 06/12/24 06/12/24 06/13/24 15:00 20:43 07:35 POC Glucose 110 176 H 110 06/13/24 11:21 POC Glucose 200 H Microbiology Microbiology Results: Microbiology 06/10/24 18:07 Blood Culture - Preliminary Blood - Venous No growth after 48 hours. 06/10/24 18:07 Blood Culture - Preliminary Blood - Venous No growth after 48 hours. Assessment and Plan (1) Acute hypoxic respiratory failure: Status: Acute (2) Pleural effusion: Status: Acute Assessment and Plan: 89 year old female with persistent atrial fibrillation anticoagulated with Eliquis, heart failure reduced ejection fraction, [id number] type 2 diabetes, COPD, chronic hypoxemic respiratory failure on 2.5/3 L at baseline, history of breast cancer, history of lung cancer 2002 admitted for further management of acute hypoxemic respiratory failure. Acute hypoxemic respiratory failure sec to acute exacerbation of heart failure reduced ejection fraction ,pleural effusions,? pneumonia CXR with bilateral pleural effusions and cardiomegaly. Symptomatic with orthopnea, dyspnea on exertion -last echocardiogram 2018 shows EF 40-45% still symtomatic plan vbg note -seems ph compensated chest ct reviewed -? pneumonia ,? lung lesion,pleural effusion strict I&O -2.3liter neg 01/22: echocardiogram: Low normal LV ejection fraction 50-55% with mild left ventricular hypertrophy need better control afib with rvr also. continue isosorbide, metoprolol, 40 mg IV Lasix daily,cardizem 180 mg po daily,monitor on telemetry with continuous O2,continue supplemental O2 to maintain oximetry around 90%. follow renal function/lytes cardiology evaluation-continue gentle diuresis as well as copd meds . consulted pulm -? right side pulm lesion/copd. ct chest -as above , lesslikely pneumonia ,so ceftriaxone/azithromycin (01/11/24) switched to po ceftin. will need pulm follow up for above. persistent atrial fibrillation-rate controlled off diltiazem drip continue Eliquis for anticoagulation, metoprolol for rate control,adjusted diltiazem. [id number] type 2 diabetes -POC glucose, diabetic diet -Humalog on sliding scale COPD -no acute exacerbation -continue maintenance inhalers, DuoNebs p.r.n. chronic normocytic anemia -H/H baseline, above transfusion threshold DVT prophylaxis-Eliquis Full code Healthcare proxy-daughterJoan [phone] Patient requires inpatient stay: for management of acute CHF exacerbation requiring IV diuresis and oxygen due to significant volume overload resulting in acute on chronic hypoxemic respiratory failure and will require close monitoring of I/O and renal function/electrolyte levels with possible expert consultation Quality Stroke Does the patient have a stroke diagnosis?: No VTE Prior VTE?: No VTE Risk Level:: Medical - moderate - high VTE Device Contraindication: Treatment Not Indicated VTE Drug Contraindication: N/A - Med Ordered
[2024-06-13 16:39] LABS: Glucose, Whole Blood 146 mg/dL (60-115)
[2024-06-13] MEDS: Potassium Chloride ER 20 MEQ TAB.ER.PRT PO (16:52)
[2024-06-13] MEDS: Atorvastatin Calcium 20 MG TABLET PO (20:29)
[2024-06-13 20:42] LABS: Glucose, Whole Blood 205 mg/dL (60-115)
[2024-06-14] VITALS (10 sets, daily range): BP systolic 106–153; BP diastolic 55–74; PULSE 67–112; RESP 18–24; TEMP 36.6–37.4; O2SAT 89–96
[2024-06-14 07:07] LABS: Hematocrit 40.3 % (37.0-47.0); Hemoglobin 11.6 g/dl (12.0-16.0); Mean Corpuscular HGB Conc 28.8 g/dl (31.0-35.0); Mean Corpuscular Hemoglobin 27.5 pg (27.0-33.0); Mean Corpuscular Volume 95.5 fL (80.0-98.0); Mean Platelet Volume 11.5 fL (9.4-12.3); Platelet Count 171 X10*3/uL (160-400); Red Blood Count 4.22 X10*6/uL (4.20-5.50); White Blood Count 10.5 X10*3/uL (4.8-10.8)
[2024-06-14] MEDS: Fluticasone/Umeclidinium/Vilanterol 100/62.5/25 BLST.W.DEV 1 PUFF INHALE (07:11)
[2024-06-14 07:22] LABS: Anion Gap 12 (12-20); Blood Urea Nitrogen 42 mg/dL (9-16); Calcium 9.1 mg/dL (8.4-10.2); Carbon Dioxide 39 mmol/L (22-29); Chloride 97 mmol/L (96-108); Creatinine Clr Calc Pharmacy 44.1; Estimated Glomerular Filt Rate > 60; Glucose Random 98 mg/dL (60-115); Potassium 4.4 mmol/L (3.3-5.1); Sodium 144 mmol/L (135-145)
[2024-06-14 07:30] LABS: Glucose, Whole Blood 92 mg/dL (60-115)
[2024-06-14] MEDS: dilTIAZem HCL CD 180 MG CAP.ER.24H PO (09:04)
[2024-06-14] MEDS: cefuroxime axetiL 500 MG TABLET PO ×2 (09:04→20:31)
[2024-06-14] MEDS: Cholecalciferol (Vitamin D3) 25 MCG TABLET PO (09:05)
[2024-06-14] MEDS: Cyanocobalamin (Vitamin B-12) 1,000 MCG TABLET 1000 MCG PO (09:05)
[2024-06-14] MEDS: Isosorbide Mononitrate 30 MG TAB.ER.24H PO (09:05)
[2024-06-14] MEDS: predniSONE 20 MG TABLET 40 MG PO (09:05)
[2024-06-14] MEDS: Apixaban 5 MG TABLET PO ×2 (09:05→20:31)
[2024-06-14] MEDS: Ascorbic Acid 500 MG TABLET PO ×2 (09:05→20:31)
[2024-06-14] MEDS: Metoprolol Tartrate 50 MG TABLET PO ×2 (09:05→20:30)
[2024-06-14] MEDS: Furosemide 40 MG/4 ML VIAL IVPUSH (09:05)
[2024-06-14] MEDS: 0.9 % Sodium Chloride Flush 3 ML SYRINGE IVFLUSH ×2 (09:06→16:40)
[2024-06-14 11:24] LABS: Glucose, Whole Blood 197 mg/dL (60-115)
[2024-06-14] MEDS: Insulin Lispro 100 UNIT/ML 3 ML VIAL SUBCUT ×3 (11:39→20:31)
--- NOTE | 2024-06-14 11:40 | HO.PM.IMPN ---
Subjective Subjective Date of Service: 06/14/24 Interval History: chf /copd Review of Systems sob seems similar no fevers dry cough Physical Exam Vital Signs: Vital Signs: Last Vital Signs Temp 97.8 F 06/14/24 11:14 Pulse 87 06/14/24 11:14 Resp 18 06/14/24 11:14 BP 106/55 L 06/14/24 11:14 Pulse Ox 94 06/14/24 11:14 O2 Del Method Oxymask 06/14/24 11:14 O2 Flow Rate 5 06/14/24 11:14 Oxygen Flow Rate 3 06/10/24 16:45 BMI result Body Mass Index 30.8 Appearance: Alert.? Oriented X3.? cvs: rrr, [id number] . res: air entry fair ,somewhat diminshed at bases, few scattered rales abd: no rebound or guarding ,nt, bs present. ext pulses present , no cyanosis , 1+edema. neuro: axo3 , nonfocal. Objective Data Active Medications Acetaminophen (Acetaminophen 325 Mg Tablet) 975 mg PO Q6H PRN PRN Reason: Pain, Mild 1-3,fever,headache Apixaban (Apixaban 5 Mg Tablet) 5 mg PO BID [facility] Last Admin: 06/14/24 09:05 Dose: 5 mg Documented By: JATINDER Ascorbic Acid (Ascorbic Acid 500 Mg Tablet) 500 mg PO BID [facility] Last Admin: 06/14/24 09:05 Dose: 500 mg Documented By: JATINDER Atorvastatin Calcium (Atorvastatin Calcium 20 Mg Tablet) 20 mg PO BEDTIME [facility] Last Admin: 06/13/24 20:29 Dose: 20 mg Documented By: TASHIAAZ Benzocaine (Throat Lozenge, Medicated Lozenge) 1 lozenge MUCOUS MEM Q2H PRN PRN Reason: Sore Throat Cefuroxime Axetil (Cefuroxime Axetil 500 Mg Tablet) 500 mg PO Q12H [facility] Last Admin: 06/14/24 09:04 Dose: 500 mg Documented By: JATINDER Cyanocobalamin (Cyanocobalamin (Vitamin B-12) 1,000 Mcg Tablet) 1,000 mcg PO DAILY [facility] Last Admin: 06/14/24 09:05 Dose: 1,000 mcg Documented By: JATINDER Diltiazem HCl (Diltiazem Hcl Cd 180 Mg Cap.Er.24h) 180 mg PO DAILY [facility]; Protocol Last Admin: 06/14/24 09:04 Dose: 180 mg Documented By: JATINDER Fluticasone/Umeclidinium/Vilanterol (Fluticasone/Umeclidinium/Vilanterol 100/62.5 Blst.W.Dev) 1 puff INHALE RDAILY [facility] Last Admin: 06/14/24 07:11 Dose: 1 puff Documented By: KING Furosemide (Furosemide 40 Mg/4 Ml Vial) 40 mg IVPUSH DAILY [facility]; Protocol Last Admin: 06/14/24 09:05 Dose: 40 mg Documented By: JATINDER Glucose (Glucose Gel 15 Gm Gel..Gram.) 15 gm PO Q15M PRN; Protocol PRN Reason: per Hypoglycemia Standing Ord. Dextrose (D10) 250 mls @ 750 mls/hr IV Q15M PRN; Protocol PRN Reason: per Hypoglycemia Standing Ord. Insulin Human Lispro (Insulin Lispro 100 Unit/Ml 3 Ml Vial) 0 unit SUBCUT QIDACHS [facility]; Protocol Last Admin: 06/14/24 11:39 Dose: 2 unit Documented By: JATINDER Isosorbide Mononitrate (Isosorbide Mononitrate 30 Mg Tab.Er.24h) 30 mg PO DAILY [facility]; Protocol Last Admin: 06/14/24 09:05 Dose: 30 mg Documented By: JATINDER Levalbuterol HCl (Levalbuterol Hcl 1.25 Mg/3 Ml Vial.Neb) 1.25 mg INHALE Q3H PRN PRN Reason: Wheezing Last Admin: 06/12/24 09:05 Dose: 1.25 mg Documented By: MARIA T Metoprolol Tartrate (Metoprolol Tartrate 50 Mg Tablet) 50 mg PO BID [facility]; Protocol Last Admin: 06/14/24 09:05 Dose: 50 mg Documented By: JATINDER Potassium Chloride (Potassium Chloride Er 20 Meq Tab.Er.Prt) 20 meq PO Q2D [facility] Last Admin: 06/13/24 16:52 Dose: 20 meq Documented By: CHERYLE Prednisone (Prednisone 20 Mg Tablet) 40 mg PO DAILY [facility] Last Admin: 06/14/24 09:05 Dose: 40 mg Documented By: HO.ARTING Sodium Chloride (0.9 % Sodium Chloride Flush 3 Ml Syringe) 3 ml IVFLUSH QSHIFT [facility] Last Admin: 06/14/24 09:06 Dose: 3 ml Documented By: ARTING Vitamin D (Cholecalciferol (Vitamin D3) 25 Mcg Tablet) 25 mcg PO DAILY [facility] Last Admin: 06/14/24 09:05 Dose: 25 mcg Documented By: JATINDER Labs 06/14/24 06:56 06/14/24 06:56 Labs: Laboratory Results - last 24 hr 06/13/24 06/13/24 06/13/24 11:21 16:34 20:38 MCV MCH MCHC RDW Plt Count MPV Absolute Nucleated RBC Nucleated RBC % (auto) Anion Gap Estim Creat Clear Calc Estimated GFR POC Glucose 200 H 146 H 205 H Random Glucose Calcium 06/14/24 06/14/24 06/14/24 06:56 07:25 11:20 MCV 95.5 MCH 27.5 MCHC 28.8 L RDW 15.0 Plt Count 171 MPV 11.5 Absolute Nucleated RBC 0.000 Nucleated RBC % (auto) 0.0 Anion Gap 12 Estim Creat Clear Calc 44.1 Estimated GFR > 60 POC Glucose 92 197 H Random Glucose 98 Calcium 9.1 Assessment and Plan (1) Acute hypoxic respiratory failure: Status: Acute Assessment and Plan: 89 year old female with persistent atrial fibrillation anticoagulated with Eliquis, heart failure reduced ejection fraction, [id number]-eprvbeale type 2 diabetes, COPD, chronic hypoxemic respiratory failure on 2.5/3 L at baseline, history of breast cancer, history of lung cancer 2002 admitted for further management of acute hypoxemic respiratory failure. Acute hypoxemic respiratory failure sec to acute exacerbation of heart failure reduced ejection fraction ,pleural effusions,? brochitis CXR with bilateral pleural effusions and cardiomegaly. Symptomatic with orthopnea, dyspnea on exertion -last echocardiogram 2019 shows EF 40-45% still symtomatic vbg note -seems ph compensated chest ct reviewed -? pneumonia ,? lung lesion,pleural effusion strict I&O -4.2 liters ,leg edema improving 01/22: echocardiogram: Low normal LV ejection fraction 50-55% with mild left ventricular hypertrophy plan: for pulm lesion d/w Dr Marino -seems simiar to her last year (01/22) Ct chest-receomended to follow up with outpatient pulm. as per pulm:Would advise against thoracentesis as pleural effusions appear to be chronic and related to underlying chronic congestive heart failure. Agree with further judicious diuresis ct chest -as above , less likely pneumonia ,so ceftriaxone/azithromycin (01/11/24) switched to po ceftin. cardiology evaluation-continue gentle diuresis as well as copd meds -continue isosorbide, metoprolol, 40 mg IV Lasix daily,cardizem 180 mg po daily,monitor on telemetry with continuous O2,continue supplemental O2 to maintain oximetry around 90%. follow renal function/lytes persistent atrial fibrillation-rate controlled off diltiazem drip continue Eliquis for anticoagulation, metoprolol for rate control,adjusted diltiazem. [id number]-lvdersxed type 2 diabetes -POC glucose, diabetic diet -Humalog on sliding scale COPD -no acute exacerbation -continue maintenance inhalers, DuoNebs p.r.n. chronic normocytic anemia -H/H baseline, above transfusion threshold DVT prophylaxis-Eliquis. Pt eval -generalsilizeth chahal. Full code Healthcare proxy-daughterJoan [phone] Patient requires inpatient stay: for management of acute CHF exacerbation requiring IV diuresis and oxygen due to significant volume overload resulting in acute on chronic hypoxemic respiratory failure and will require close monitoring of I/O and renal function/electrolyte levels with possible expert consultation Quality Stroke Does the patient have a stroke diagnosis?: No VTE Prior VTE?: No VTE Risk Level:: Medical - moderate - high VTE Device Contraindication: Treatment Not Indicated VTE Drug Contraindication: N/A - Med Ordered
[2024-06-14 16:31] LABS: Glucose, Whole Blood 182 mg/dL (60-115)
[2024-06-14 20:26] LABS: Glucose, Whole Blood 289 mg/dL (60-115)
[2024-06-14] MEDS: Atorvastatin Calcium 20 MG TABLET PO (20:31)
[2024-06-14] MEDS: levalbuterol HCL 1.25 MG/3 ML VIAL.NEB INHALE (22:06)
[2024-06-15] VITALS (8 sets, daily range): BP systolic 129–159; BP diastolic 67–84; PULSE 79–113; RESP 18; TEMP 36.5–37.5; O2SAT 92–100
[2024-06-15] MEDS: 0.9 % Sodium Chloride Flush 3 ML SYRINGE IVFLUSH ×4 (00:01→21:26)
[2024-06-15] MEDS: Fluticasone/Umeclidinium/Vilanterol 100/62.5/25 BLST.W.DEV 1 PUFF INHALE (07:41)
[2024-06-15 07:53] LABS: Glucose, Whole Blood 113 mg/dL (60-115)
[2024-06-15] MEDS: predniSONE 20 MG TABLET 40 MG PO (09:17)
[2024-06-15] MEDS: Furosemide 40 MG/4 ML VIAL 20 MG IVPUSH (09:17)
[2024-06-15] MEDS: Cyanocobalamin (Vitamin B-12) 1,000 MCG TABLET 1000 MCG PO (09:18)
[2024-06-15] MEDS: cefuroxime axetiL 500 MG TABLET PO ×2 (09:18→21:25)
[2024-06-15] MEDS: dilTIAZem HCL CD 180 MG CAP.ER.24H PO (09:18)
[2024-06-15] MEDS: Apixaban 5 MG TABLET PO ×2 (09:18→21:25)
[2024-06-15] MEDS: Ascorbic Acid 500 MG TABLET PO ×2 (09:18→21:25)
[2024-06-15] MEDS: Cholecalciferol (Vitamin D3) 25 MCG TABLET PO (09:18)
[2024-06-15] MEDS: Metoprolol Tartrate 50 MG TABLET PO ×2 (09:18→21:25)
--- NOTE | 2024-06-15 09:39 | MHC.CM.PN ---
EMR REVIEWED, PER P.T. PT WILL NEED STR UPON DC, CM CONTACTED PT'S DTR/HCP GRIFFIN AT NUMBER ON FILE TO [facility] PREFERENCES, PREF SNF IS [facility] AND [facility]ND CHOICE [facility], MM REVIEWING AND [facility] FOLLOWING W/BED OFFER, CM WILL CONT TO FOLLOW DC NEEDS.
--- NOTE | 2024-06-15 11:16 | P.PNIM_ITS ---
Subjective Subjective Date of Service: 06/15/24 Interval History: Worsening hypoxia, though not particularly symptomatic Physical Exam 2 Vital Signs: Vital Signs: Last Vital Signs Temp 98.5 F 06/15/24 11:08 Pulse 90 06/15/24 11:08 Resp 18 06/15/24 11:08 BP 129/84 06/15/24 11:08 Pulse Ox 97 06/15/24 11:08 O2 Del Method Oxymask 06/15/24 11:08 O2 Flow Rate 8 06/15/24 11:08 Oxygen Flow Rate 3 06/10/24 16:45 BMI result Body Mass Index 30.8 Appearance: Alert.? Oriented X3.? cvs: rrr, [id number] . res: air entry fair ,somewhat diminshed at bases, few scattered rales abd: no rebound or guarding ,nt, bs present. ext pulses present , no cyanosis , 1+edema. neuro: axo3 , nonfocal. Objective Data Active Medications Acetaminophen (Acetaminophen 325 Mg Tablet) 975 mg PO Q6H PRN PRN Reason: Pain, Mild 1-3,fever,headache Apixaban (Apixaban 5 Mg Tablet) 5 mg PO BID [facility] Last Admin: 06/15/24 09:18 Dose: 5 mg Documented By: YASIR Ascorbic Acid (Ascorbic Acid 500 Mg Tablet) 500 mg PO BID [facility] Last Admin: 06/15/24 09:18 Dose: 500 mg Documented By: YASIR Atorvastatin Calcium (Atorvastatin Calcium 20 Mg Tablet) 20 mg PO BEDTIME [facility] Last Admin: 06/14/24 20:31 Dose: 20 mg Documented By: STEVE Benzocaine (Throat Lozenge, Medicated Lozenge) 1 lozenge MUCOUS MEM Q2H PRN PRN Reason: Sore Throat Cefuroxime Axetil (Cefuroxime Axetil 500 Mg Tablet) 500 mg PO Q12H [facility] Last Admin: 06/15/24 09:18 Dose: 500 mg Documented By: YASIR Cyanocobalamin (Cyanocobalamin (Vitamin B-12) 1,000 Mcg Tablet) 1,000 mcg PO DAILY [facility] Last Admin: 06/15/24 09:18 Dose: 1,000 mcg Documented By: YASIR Diltiazem HCl (Diltiazem Hcl Cd 180 Mg Cap.Er.24h) 180 mg PO DAILY [facility]; Protocol Last Admin: 06/15/24 09:18 Dose: 180 mg Documented By: YASIR Fluticasone/Umeclidinium/Vilanterol (Fluticasone/Umeclidinium/Vilanterol 100/62.10/23 Blst.W.Dev) 1 puff INHALE RDAILY [facility] Last Admin: 06/15/24 07:41 Dose: 1 puff Documented By: ERIC Furosemide (Furosemide 40 Mg/4 Ml Vial) 20 mg IVPUSH DAILY [facility]; Protocol Last Admin: 06/15/24 09:17 Dose: 20 mg Documented By: YASIR Glucose (Glucose Gel 15 Gm Gel..Gram.) 15 gm PO Q15M PRN; Protocol PRN Reason: per Hypoglycemia Standing Ord. Dextrose (D10) 250 mls @ 750 mls/hr IV Q15M PRN; Protocol PRN Reason: per Hypoglycemia Standing Ord. Insulin Human Lispro (Insulin Lispro 100 Unit/Ml 3 Ml Vial) 0 unit SUBCUT QIDACHS [facility]; Protocol Last Admin: 06/15/24 08:01 Dose: Not Given Documented By: YASIR Non-Admin Reason: No Insulin Coverage Isosorbide Mononitrate (Isosorbide Mononitrate 30 Mg Tab.Er.24h) 30 mg PO DAILY [facility]; Protocol Last Admin: 06/14/24 09:05 Dose: 30 mg Documented By: JATINDER Levalbuterol HCl (Levalbuterol Hcl 1.25 Mg/3 Ml Vial.Neb) 1.25 mg INHALE Q3H PRN PRN Reason: Wheezing Last Admin: 06/14/24 22:06 Dose: 1.25 mg Documented By: KING Metoprolol Tartrate (Metoprolol Tartrate 50 Mg Tablet) 50 mg PO BID [facility]; Protocol Last Admin: 06/15/24 09:18 Dose: 50 mg Documented By: YASIR Potassium Chloride (Potassium Chloride Er 20 Meq Tab.Er.Prt) 20 meq PO Q2D [facility] Last Admin: 06/13/24 16:52 Dose: 20 meq Documented By: CHERYLE Prednisone (Prednisone 20 Mg Tablet) 40 mg PO DAILY [facility] Last Admin: 06/15/24 09:17 Dose: 40 mg Documented By: YASIR Sodium Chloride (0.9 % Sodium Chloride Flush 3 Ml Syringe) 3 ml IVFLUSH QSHIFT [facility] Last Admin: 06/15/24 09:17 Dose: 3 ml Documented By: YASIR Vitamin D (Cholecalciferol (Vitamin D3) 25 Mcg Tablet) 25 mcg PO DAILY [facility] Last Admin: 06/15/24 09:18 Dose: 25 mcg Documented By: YASIR Labs 06/14/24 06:56 06/14/24 06:56 Labs: Laboratory Results - last 24 hr 06/14/24 06/14/24 06/14/24 11:20 16:29 20:22 POC Glucose 197 H 182 H 289 H 06/15/24 07:41 POC Glucose 113 Assessment and Plan (1) Acute hypoxic respiratory failure: Status: Acute Assessment and Plan: 89F PMH persistent atrial fibrillation anticoagulated with Eliquis, heart failure recovered ejection fraction, [id number]-gdypgnflf type 2 diabetes, COPD, chronic hypoxemic respiratory failure on 2.5/3 L at baseline, history of breast cancer, history of lung cancer 2001 presented with sob, worsening hypoxia Acute hypoxemic respiratory failure sec to acute exacerbation of heart failure recovered ejection fraction, pleural effusions,? brochitis CXR with bilateral pleural effusions and cardiomegaly. ?RLL neoplasm last echocardiogram 2018 shows EF 40-45% symptoms improved though hypoxia worsening continue low dose lasix, ceftin, prednisone pulm appreciated- Ct chest-receomended to follow up with outpatient pulm. Would advise against thoracentesis as pleural effusions appear to be chronic and related to underlying chronic congestive heart failure follow renal function/lytes persistent atrial fibrillation-RVR off diltiazem drip continue Eliquis for anticoagulation, metoprolol for rate control,adjusted diltiazem. [id number]-jaeryiwoa type 2 diabetes -POC glucose, diabetic diet -Humalog on sliding scale COPD -no acute exacerbation -continue maintenance inhalers, DuoNebs p.r.n. chronic normocytic anemia -H/H baseline, above transfusion threshold DVT prophylaxis-Eliquis. Pt -generalsied weakness recommending short-term rehab Full code Healthcare proxy-daughterJoan [phone] Patient requires inpatient stay: Ongoing hypoxia Quality Stroke Does the patient have a stroke diagnosis?: No VTE Prior VTE?: No VTE Risk Level:: Medical - moderate - high VTE Device Contraindication: Treatment Not Indicated VTE Drug Contraindication: N/A - Med Ordered
[2024-06-15 11:17] LABS: Glucose, Whole Blood 269 mg/dL (60-115)
[2024-06-15] MEDS: Insulin Lispro 100 UNIT/ML 3 ML VIAL SUBCUT ×3 (12:21→21:27)
[2024-06-15 16:14] LABS: Glucose, Whole Blood 190 mg/dL (60-115)
[2024-06-15] MEDS: Potassium Chloride ER 20 MEQ TAB.ER.PRT PO (17:01)
[2024-06-15 20:30] LABS: Glucose, Whole Blood 300 mg/dL (60-115)
[2024-06-15] MEDS: Atorvastatin Calcium 20 MG TABLET PO (21:25)
[2024-06-16] VITALS (13 sets, daily range): BP systolic 130–158; BP diastolic 57–105; PULSE 73–118; RESP 16–24; TEMP 36.4–37.1; O2SAT 80–97
[2024-06-16 07:17] LABS: Hematocrit 40.2 % (37.0-47.0); Hemoglobin 11.5 g/dl (12.0-16.0); Mean Corpuscular HGB Conc 28.6 g/dl (31.0-35.0); Mean Corpuscular Hemoglobin 27.4 pg (27.0-33.0); Mean Corpuscular Volume 95.7 fL (80.0-98.0); Mean Platelet Volume 11.5 fL (9.4-12.3); Platelet Count 172 X10*3/uL (160-400); Red Cell Distribution Width 14.8 % (11.0-16.0)
[2024-06-16 07:40] LABS: Anion Gap 10 (12-20); Blood Urea Nitrogen 36 mg/dL (9-16); Carbon Dioxide 43 mmol/L (22-29); Chloride 96 mmol/L (96-108); Creatinine Clr Calc Pharmacy 49.2; Estimated Glomerular Filt Rate > 60; Glucose Random 102 mg/dL (60-115); Potassium 4.3 mmol/L (3.3-5.1); Sodium 145 mmol/L (135-145)
[2024-06-16 07:43] LABS: Glucose, Whole Blood 104 mg/dL (60-115)
[2024-06-16] MEDS: Fluticasone/Umeclidinium/Vilanterol 100/62.5/25 BLST.W.DEV 1 PUFF INHALE (08:22)
[2024-06-16 08:42] LABS: ABG HCO3 54 mmol/L (22-26); ABG pCO2 87 mmHg (32-45); ABG pO2 65 mmHg (83-108)
[2024-06-16] MEDS: Furosemide 40 MG/4 ML VIAL 20 MG IVPUSH (08:58)
[2024-06-16] MEDS: dilTIAZem HCL CD 180 MG CAP.ER.24H PO (08:59)
[2024-06-16] MEDS: predniSONE 20 MG TABLET 40 MG PO (08:59)
[2024-06-16] MEDS: Cholecalciferol (Vitamin D3) 25 MCG TABLET PO (08:59)
[2024-06-16] MEDS: Cyanocobalamin (Vitamin B-12) 1,000 MCG TABLET 1000 MCG PO (08:59)
[2024-06-16] MEDS: Ascorbic Acid 500 MG TABLET PO ×2 (08:59→21:06)
[2024-06-16] MEDS: cefuroxime axetiL 500 MG TABLET PO ×2 (08:59→21:06)
[2024-06-16] MEDS: Apixaban 5 MG TABLET PO ×2 (09:00→21:07)
[2024-06-16] MEDS: 0.9 % Sodium Chloride Flush 3 ML SYRINGE IVFLUSH ×3 (09:00→21:07)
[2024-06-16] MEDS: Metoprolol Tartrate 50 MG TABLET PO ×2 (09:00→21:07)
--- NOTE | 2024-06-16 10:23 | HO.PM.IMPN ---
Subjective Subjective Date of Service: 06/16/24 Interval History: feels worse today, ongoing hypoxia Physical Exam Vital Signs: Vital Signs: Last Vital Signs Temp 97.9 F 06/16/24 07:26 Pulse 110 H 06/16/24 08:57 Resp 22 H 06/16/24 08:57 BP 158/105 H 06/16/24 08:57 Pulse Ox 93 06/16/24 08:57 O2 Del Method Oxymask 06/16/24 08:57 O2 Flow Rate 6 06/16/24 08:57 Oxygen Flow Rate 3 06/10/24 16:45 BMI result Body Mass Index 30.8 Appearance: Alert.? Oriented X3.? cvs: rrr, [id number] . res: air entry fair ,somewhat diminshed at bases, few scattered rales abd: no rebound or guarding ,nt, bs present. ext pulses present , no cyanosis , 1+edema. neuro: axo3 , nonfocal. Objective Data Active Medications Acetaminophen (Acetaminophen 325 Mg Tablet) 975 mg PO Q6H PRN PRN Reason: Pain, Mild 1-3,fever,headache Apixaban (Apixaban 5 Mg Tablet) 5 mg PO BID [facility] Last Admin: 06/16/24 09:00 Dose: 5 mg Documented By: DIANA Ascorbic Acid (Ascorbic Acid 500 Mg Tablet) 500 mg PO BID [facility] Last Admin: 06/16/24 08:59 Dose: 500 mg Documented By: DIANA Atorvastatin Calcium (Atorvastatin Calcium 20 Mg Tablet) 20 mg PO BEDTIME [facility] Last Admin: 06/15/24 21:25 Dose: 20 mg Documented By: YOGI Benzocaine (Throat Lozenge, Medicated Lozenge) 1 lozenge MUCOUS MEM Q2H PRN PRN Reason: Sore Throat Cefuroxime Axetil (Cefuroxime Axetil 500 Mg Tablet) 500 mg PO Q12H [facility] Last Admin: 06/16/24 08:59 Dose: 500 mg Documented By: DIANA Cyanocobalamin (Cyanocobalamin (Vitamin B-12) 1,000 Mcg Tablet) 1,000 mcg PO DAILY [facility] Last Admin: 06/16/24 08:59 Dose: 1,000 mcg Documented By: DIANA Diltiazem HCl (Diltiazem Hcl Cd 180 Mg Cap.Er.24h) 180 mg PO DAILY [facility]; Protocol Last Admin: 06/16/24 08:59 Dose: 180 mg Documented By: DIANA Fluticasone/Umeclidinium/Vilanterol (Fluticasone/Umeclidinium/Vilanterol 100/62.5 Blst.W.Dev) 1 puff INHALE RDAILY [facility] Last Admin: 06/16/24 08:22 Dose: 1 puff Documented By: ERIC Furosemide (Furosemide 40 Mg/4 Ml Vial) 20 mg IVPUSH DAILY [facility]; Protocol Last Admin: 06/16/24 08:58 Dose: 20 mg Documented By: DIANA Glucose (Glucose Gel 15 Gm Gel..Gram.) 15 gm PO Q15M PRN; Protocol PRN Reason: per Hypoglycemia Standing Ord. Dextrose (D10) 250 mls @ 750 mls/hr IV Q15M PRN; Protocol PRN Reason: per Hypoglycemia Standing Ord. Insulin Human Lispro (Insulin Lispro 100 Unit/Ml 3 Ml Vial) 0 unit SUBCUT QIDACHS [facility]; Protocol Last Admin: 06/16/24 08:49 Dose: Not Given Documented By: DIANA Non-Admin Reason: No Insulin Coverage Isosorbide Mononitrate (Isosorbide Mononitrate 30 Mg Tab.Er.24h) 30 mg PO DAILY [facility]; Protocol Last Admin: 06/14/24 09:05 Dose: 30 mg Documented By: JATINDER Levalbuterol HCl (Levalbuterol Hcl 1.25 Mg/3 Ml Vial.Neb) 1.25 mg INHALE Q3H PRN PRN Reason: Wheezing Last Admin: 06/14/24 22:06 Dose: 1.25 mg Documented By: KING Metoprolol Tartrate (Metoprolol Tartrate 50 Mg Tablet) 50 mg PO BID [facility]; Protocol Last Admin: 06/16/24 09:00 Dose: 50 mg Documented By: DIANA Potassium Chloride (Potassium Chloride Er 20 Meq Tab.Er.Prt) 20 meq PO Q2D [facility] Last Admin: 06/15/24 17:01 Dose: 20 meq Documented By: YASIR Prednisone (Prednisone 20 Mg Tablet) 40 mg PO DAILY [facility] Last Admin: 06/16/24 08:59 Dose: 40 mg Documented By: DIANA Sodium Chloride (0.9 % Sodium Chloride Flush 3 Ml Syringe) 3 ml IVFLUSH QSHIFT [facility] Last Admin: 06/16/24 09:00 Dose: 3 ml Documented By: DIANA Vitamin D (Cholecalciferol (Vitamin D3) 25 Mcg Tablet) 25 mcg PO DAILY [facility] Last Admin: 06/16/24 08:59 Dose: 25 mcg Documented By: DIANA Labs 06/16/24 06:38 06/16/24 06:38 Labs: Laboratory Results - last 24 hr 06/15/24 06/15/24 06/15/24 11:09 16:03 20:25 MCV MCH MCHC RDW Plt Count MPV Absolute Nucleated RBC Nucleated RBC % (auto) O2 Saturation ABG pH at Pt Temp ABG pCO2 at Pt Temp ABG pO2 at Pt Temp ABG HCO3 ABG Base Excess (Actual) Anion Gap Estim Creat Clear Calc Estimated GFR POC Glucose 269 H 190 H 300 H Random Glucose Calcium 06/16/24 06/16/24 06/16/24 06:38 07:24 08:31 MCV 95.7 MCH 27.4 MCHC 28.6 L RDW 14.8 Plt Count 172 MPV 11.5 Absolute Nucleated RBC 0.000 Nucleated RBC % (auto) 0.0 O2 Saturation 91.0 ABG pH at Pt Temp 7.40 ABG pCO2 at Pt Temp 87 H* ABG pO2 at Pt Temp 65 L ABG HCO3 54 H ABG Base Excess (Actual) 24.0 Anion Gap 10 L Estim Creat Clear Calc 49.2 Estimated GFR > 60 POC Glucose 104 Random Glucose 102 Calcium 9.0 Microbiology Microbiology Results: Microbiology 06/10/24 18:07 Blood Culture - Final Blood - Venous No growth after 5 days. 06/10/24 18:07 Blood Culture - Final Blood - Venous No growth after 5 days. Assessment and Plan (1) Acute hypoxic respiratory failure: Status: Acute Assessment and Plan: 89F PMH persistent atrial fibrillation anticoagulated with Eliquis, heart failure recovered ejection fraction, [id number]-nmvbhay-fzldfkzvk type 2 diabetes, COPD, chronic hypoxemic respiratory failure on 2.5/3 L at baseline, history of breast cancer, history of lung cancer 2001 presented with sob, worsening hypoxia Acute hypoxemic and chronic hypercapneic respiratory failure sec to acute exacerbation of heart failure recovered ejection fraction, pleural effusions,? brochitis CXR with bilateral pleural effusions and cardiomegaly. ?RLL neoplasm last echocardiogram 2018 shows EF 40-45% symptoms improved though hypoxia worsening continue low dose lasix, ceftin, prednisone pulm appreciated- Ct chest-recommended to follow up with outpatient pulm. Would advise against thoracentesis as pleural effusions appear to be chronic and related to underlying chronic congestive heart failure continues to have increased A-a gradient, check repeat cxr persistent atrial fibrillation-RVR off diltiazem drip continue Eliquis for anticoagulation, metoprolol for rate control,adjusted diltiazem. [id number]-whfsrevnl type 2 diabetes -POC glucose, diabetic diet -Humalog on sliding scale COPD -no acute exacerbation -continue maintenance inhalers, DuoNebs p.r.n. chronic normocytic anemia -H/H baseline, above transfusion threshold DVT prophylaxis-Eliquis. Pt -generalsied weakness recommending short-term rehab Full code Healthcare proxy-daughterJoan [phone] Patient requires inpatient stay: Ongoing hypoxia Quality Stroke Does the patient have a stroke diagnosis?: No VTE Prior VTE?: No VTE Risk Level:: Medical - moderate - high VTE Device Contraindication: Treatment Not Indicated VTE Drug Contraindication: N/A - Med Ordered
--- NOTE | 2024-06-16 10:37 | MHC.CM.PN ---
Per ROUNDS discussion, Patient is not yet medically cleared for dc (O2 requirements are increasing); PT is recommending STR and CM will continue to follow.
[2024-06-16 11:58] LABS: Glucose, Whole Blood 129 mg/dL (60-115)
[2024-06-16] MEDS: acetaZOLAMIDE sodium 500 MG VIAL IVPUSH (14:08)
[2024-06-16 16:19] LABS: Glucose, Whole Blood 222 mg/dL (60-115)
[2024-06-16] MEDS: Insulin Lispro 100 UNIT/ML 3 ML VIAL SUBCUT ×2 (16:46→21:09)
[2024-06-16 20:58] LABS: Glucose, Whole Blood 225 mg/dL (60-115)
[2024-06-16] MEDS: Atorvastatin Calcium 20 MG TABLET PO (21:07)
[2024-06-17] VITALS (18 sets, daily range): BP systolic 91–160; BP diastolic 45–72; PULSE 85–109; RESP 16–29; TEMP 36.5–37.1; O2SAT 89–97
[2024-06-17] MEDS: acetaZOLAMIDE sodium 500 MG VIAL IVPUSH ×3 (00:16→16:41)
[2024-06-17 07:15] LABS: Hematocrit 43.1 % (37.0-47.0); Mean Corpuscular HGB Conc 27.8 g/dl (31.0-35.0); Mean Corpuscular Hemoglobin 27.2 pg (27.0-33.0); Mean Corpuscular Volume 97.7 fL (80.0-98.0); Platelet Count 172 X10*3/uL (160-400); Red Blood Count 4.41 X10*6/uL (4.20-5.50); Red Cell Distribution Width 14.6 % (11.0-16.0); White Blood Count 11.1 X10*3/uL (4.8-10.8)
[2024-06-17 07:35] LABS: Anion Gap 10 (12-20); Blood Urea Nitrogen 35 mg/dL (9-16); Carbon Dioxide 41 mmol/L (22-29); Chloride 97 mmol/L (96-108); Creatinine Clr Calc Pharmacy 46.8; Estimated Glomerular Filt Rate > 60; Glucose Random 106 mg/dL (60-115); Potassium 4.1 mmol/L (3.3-5.1); Sodium 144 mmol/L (135-145)
[2024-06-17] MEDS: Fluticasone/Umeclidinium/Vilanterol 100/62.5/25 BLST.W.DEV 1 PUFF INHALE (07:40)
[2024-06-17 07:43] LABS: Glucose, Whole Blood 110 mg/dL (60-115)
[2024-06-17] MEDS: predniSONE 20 MG TABLET 40 MG PO (08:46)
[2024-06-17] MEDS: Throat Lozenge, Medicated LOZENGE 1 LOZENGE MUCOUS MEM (08:46)
[2024-06-17] MEDS: Cyanocobalamin (Vitamin B-12) 1,000 MCG TABLET 1000 MCG PO (08:46)
[2024-06-17] MEDS: Apixaban 5 MG TABLET PO (08:47)
[2024-06-17] MEDS: dilTIAZem HCL CD 180 MG CAP.ER.24H PO (08:47)
[2024-06-17] MEDS: Ascorbic Acid 500 MG TABLET PO (08:47)
[2024-06-17] MEDS: Metoprolol Tartrate 50 MG TABLET PO (08:47)
[2024-06-17] MEDS: Furosemide 40 MG/4 ML VIAL 20 MG IVPUSH (08:47)
[2024-06-17] MEDS: cefuroxime axetiL 500 MG TABLET PO (08:47)
[2024-06-17] MEDS: Cholecalciferol (Vitamin D3) 25 MCG TABLET PO (08:47)
[2024-06-17] MEDS: 0.9 % Sodium Chloride Flush 3 ML SYRINGE IVFLUSH ×2 (08:48→12:27)
--- NOTE | 2024-06-17 09:44 | P.PNIM_ITS ---
Subjective Subjective Date of Service: 06/17/24 Interval History: Still short of breath and significantly hypoxic when moving and eating Physical Exam 2 Vital Signs: Vital Signs: Last Vital Signs Temp 98.2 F 06/17/24 06:47 Pulse 97 06/17/24 06:47 Resp 18 06/17/24 06:47 BP 117/72 06/17/24 06:47 Pulse Ox 92 06/17/24 06:47 O2 Del Method Aerosol Mask 06/17/24 06:47 O2 Flow Rate 7 06/17/24 06:47 Oxygen Flow Rate 3 06/10/24 16:45 BMI result Body Mass Index 30.8 Appearance: Alert.? Oriented X3.? cvs: rrr, [id number] . res: air entry fair ,somewhat diminshed at bases, few scattered rales abd: no rebound or guarding ,nt, bs present. ext pulses present , no cyanosis , 1+edema. neuro: axo3 , nonfocal. Objective Data Active Medications Acetaminophen (Acetaminophen 325 Mg Tablet) 975 mg PO Q6H PRN PRN Reason: Pain, Mild 1-3,fever,headache Acetazolamide (Acetazolamide Sodium 500 Mg Vial) 500 mg IVPUSH Q12H [facility] Last Admin: 06/17/24 00:16 Dose: 500 mg Documented By: YOGI Apixaban (Apixaban 5 Mg Tablet) 5 mg PO BID [facility] Last Admin: 06/17/24 08:47 Dose: 5 mg Documented By: JOSE Ascorbic Acid (Ascorbic Acid 500 Mg Tablet) 500 mg PO BID [facility] Last Admin: 06/17/24 08:47 Dose: 500 mg Documented By: JOSE Atorvastatin Calcium (Atorvastatin Calcium 20 Mg Tablet) 20 mg PO BEDTIME [facility] Last Admin: 06/16/24 21:07 Dose: 20 mg Documented By: YOGI Benzocaine (Throat Lozenge, Medicated Lozenge) 1 lozenge MUCOUS MEM Q2H PRN PRN Reason: Sore Throat Last Admin: 06/17/24 08:46 Dose: 1 lozenge Documented By: JOSE Cefuroxime Axetil (Cefuroxime Axetil 500 Mg Tablet) 500 mg PO Q12H [facility] Last Admin: 06/17/24 08:47 Dose: 500 mg Documented By: JOSE Cyanocobalamin (Cyanocobalamin (Vitamin B-12) 1,000 Mcg Tablet) 1,000 mcg PO DAILY [facility] Last Admin: 06/17/24 08:46 Dose: 1,000 mcg Documented By: JOSE Diltiazem HCl (Diltiazem Hcl Cd 180 Mg Cap.Er.24h) 180 mg PO DAILY [facility]; Protocol Last Admin: 06/17/24 08:47 Dose: 180 mg Documented By: JOSE Fluticasone/Umeclidinium/Vilanterol (Fluticasone/Umeclidinium/Vilanterol 100/62.5 Blst.W.Dev) 1 puff INHALE RDAILY [facility] Last Admin: 06/17/24 07:40 Dose: 1 puff Documented By: DUSTIN Furosemide (Furosemide 40 Mg/4 Ml Vial) 20 mg IVPUSH DAILY [facility]; Protocol Last Admin: 06/17/24 08:47 Dose: 20 mg Documented By: JOSE Glucose (Glucose Gel 15 Gm Gel..Gram.) 15 gm PO Q15M PRN; Protocol PRN Reason: per Hypoglycemia Standing Ord. Dextrose (D10) 250 mls @ 750 mls/hr IV Q15M PRN; Protocol PRN Reason: per Hypoglycemia Standing Ord. Insulin Human Lispro (Insulin Lispro 100 Unit/Ml 3 Ml Vial) 0 unit SUBCUT QIDACHS [facility]; Protocol Last Admin: 06/17/24 07:41 Dose: Not Given Documented By: JOSE Non-Admin Reason: No Insulin Coverage Comments: POC 110 Isosorbide Mononitrate (Isosorbide Mononitrate 30 Mg Tab.Er.24h) 30 mg PO DAILY [facility]; Protocol Last Admin: 06/14/24 09:05 Dose: 30 mg Documented By: JATINDER Levalbuterol HCl (Levalbuterol Hcl 1.25 Mg/3 Ml Vial.Neb) 1.25 mg INHALE Q3H PRN PRN Reason: Wheezing Last Admin: 06/14/24 22:06 Dose: 1.25 mg Documented By: KING Metoprolol Tartrate (Metoprolol Tartrate 50 Mg Tablet) 50 mg PO BID [facility]; Protocol Last Admin: 06/17/24 08:47 Dose: 50 mg Documented By: JOSE Potassium Chloride (Potassium Chloride Er 20 Meq Tab.Er.Prt) 20 meq PO Q2D [facility] Last Admin: 06/15/24 17:01 Dose: 20 meq Documented By: YASIR Prednisone (Prednisone 20 Mg Tablet) 40 mg PO DAILY [facility] Last Admin: 06/17/24 08:46 Dose: 40 mg Documented By: JOSE Sodium Chloride (0.9 % Sodium Chloride Flush 3 Ml Syringe) 3 ml IVFLUSH QSHIFT [facility] Last Admin: 06/17/24 08:48 Dose: 3 ml Documented By: JOSE Vitamin D (Cholecalciferol (Vitamin D3) 25 Mcg Tablet) 25 mcg PO DAILY [facility] Last Admin: 06/17/24 08:47 Dose: 25 mcg Documented By: JOSE Labs 06/17/24 06:42 06/17/24 06:42 Labs: Laboratory Results - last 24 hr 06/16/24 06/16/24 06/16/24 11:04 16:11 20:48 MCV MCH MCHC RDW Plt Count MPV Absolute Nucleated RBC Nucleated RBC % (auto) Anion Gap Estim Creat Clear Calc Estimated GFR POC Glucose 129 H 222 H 225 H Random Glucose Calcium 06/17/24 06/17/24 06:42 07:36 MCV 97.7 MCH 27.2 MCHC 27.8 L RDW 14.6 Plt Count 172 MPV 12.0 Absolute Nucleated RBC 0.000 Nucleated RBC % (auto) 0.0 Anion Gap 10 L Estim Creat Clear Calc 46.8 Estimated GFR > 60 POC Glucose 110 Random Glucose 106 Calcium 9.0 Assessment and Plan (1) Acute hypoxic respiratory failure: Status: Acute Assessment and Plan: 89F PMH persistent atrial fibrillation anticoagulated with Eliquis, heart failure recovered ejection fraction, [id number] type 2 diabetes, COPD, chronic hypoxemic respiratory failure on 2.5/3 L at baseline, history of breast cancer, history of lung cancer 2001 presented with sob, worsening hypoxia Acute hypoxemic and chronic hypercapneic respiratory failure sec to acute exacerbation of heart failure recovered ejection fraction, pleural effusions,? brochitis CXR with bilateral pleural effusions and cardiomegaly. ?RLL neoplasm last echocardiogram 2018 shows EF 40-45% symptoms improved though hypoxia worsening continue low dose lasix, ceftin, prednisone pulm appreciated- Ct chest-recommended to follow up with outpatient pulm. Would advise against thoracentesis as pleural effusions appear to be chronic and related to underlying chronic congestive heart failure continues to have increased A-a gradient Continue IV Diamox, monitor persistent atrial fibrillation-RVR off diltiazem drip continue Eliquis for anticoagulation, metoprolol for rate control,adjusted diltiazem. [id number] type 2 diabetes -POC glucose, diabetic diet -Humalog on sliding scale COPD -no acute exacerbation -continue maintenance inhalers, DuoNebs p.r.n. chronic normocytic anemia -H/H baseline, above transfusion threshold DVT prophylaxis-Eliquis. Pt -generalsied weakness recommending short-term rehab Full code Healthcare proxy-daughterJoan [phone] Patient requires inpatient stay: Ongoing hypoxia Quality Stroke Does the patient have a stroke diagnosis?: No VTE Prior VTE?: No VTE Risk Level:: Medical - moderate - high VTE Device Contraindication: Treatment Not Indicated VTE Drug Contraindication: N/A - Med Ordered
[2024-06-17 11:56] LABS: Glucose, Whole Blood 164 mg/dL (60-115)
[2024-06-17] MEDS: Insulin Lispro 100 UNIT/ML 3 ML VIAL SUBCUT ×2 (12:27→18:45)
--- NOTE | 2024-06-17 12:48 | MHC.CM.PN ---
EMR reviewed and per MD rounds, pt is not medically cleared for discharge due to management of hypoxia.
[2024-06-17 15:47] LABS: ABG Base Excess 18.6 mmol/L; ABG HCO3 50 mmol/L (22-26); ABG pCO2 99 mmHg (32-45); ABG pH 7.31 (7.35-7.45); ABG pO2 70 mmHg (83-108)
[2024-06-17] MEDS: Morphine Sulfate 2 MG/ML CARTRIDGE 1 MG IVPUSH (15:47)
--- NOTE | 2024-06-17 15:57 | PM.EVENT ---
Event Note Date of Service: 06/17/24 Event Note: patient more sob, tachypneic, more accessory muscles, abg with worsening hypercapnea, starting bipap, transfer to icu, d/w daughter/hcp stevo Time Spent With Patient Time: Total time managing care of this patient today ____ minutes.
--- NOTE | 2024-06-17 16:09 | PM.EVENT ---
Event Note Date of Service: 06/17/24 Event Note: Patient is a 89 Y F w/ hypertension, hyperlipidemia, diabetes mellitus, heart failure w/ reduced ejection fraction, atrial fibrillation on apixaban, prior lung cancer s/p RU lobectomy, COPD, as well as chronic hypoxic respiratory failure, on 3 L NC, presenting to emergency department initially on 06/11 w/ dyspnea, admitted to medicine for CHF vs COPD exacerbation management; ICU called on 06/17 d/t worsening dyspnea, found to have worsening hypercarbia, started on BiPAP; plan for diuresis for possible CHF, and COPD management w/ BiPAP, duonebs, steroids, and antibiotics Time Spent With Patient Time: Total time managing care of this patient today ____ minutes.
--- NOTE | 2024-06-17 16:12 | PC.RT ---
RT called to draw ABG on pt. Pt is in and out of conciousness. ABG showed a respiratory acidosis, pH 7.30 CO2 98. Pt placed on BiPAP 18/8 50% and caroline well. Pt given PRN neb. Transfer orders placed for ICU. ICU MD aware of ABG and BiPAP.
[2024-06-17 16:15] LABS: Glucose, Whole Blood 255 mg/dL (60-115)
[2024-06-17 16:15] LABS: Glucose, Whole Blood 289 mg/dL (60-115)
[2024-06-17] MEDS: levalbuterol HCL 1.25 MG/3 ML VIAL.NEB INHALE (16:15)
[2024-06-17] MEDS: Albuterol Sulfate 5 MG, Albuterol/Iprat 2.5/0.5MG 3 ML 3 ML INHALE (16:23)
[2024-06-17] MEDS: Furosemide 40 MG/4 ML VIAL IVPUSH (16:42)
[2024-06-17] MEDS: methylPREDNISolone Sod Succ 125 MG/2 ML VIAL 60 MG IVPUSH (16:42)
[2024-06-17] MEDS: cefTRIAXone sodium 1 GM VIAL IVPUSH (17:01)
[2024-06-17] MEDS: Azithromycin 500 MG in 0.9 % Sodium Chloride 250 ML 125 MG IV (17:02)
[2024-06-17 18:45] LABS: Glucose, Whole Blood 269 mg/dL (60-115)
[2024-06-17 18:53] LABS: VBG Base Excess 14.5 mmol/L; VBG HCO3 41 mmol/L (22-26); VBG pCO2 61 mmHg; VBG pH 7.44 (7.32-7.43); VBG pO2 77 mmHg
[2024-06-17 18:54] LABS: Venous Blood Gas Refer to POC result
[2024-06-17 19:07] LABS: Anion Gap 10 (12-20); Blood Urea Nitrogen 35 mg/dL (9-16); Calcium 8.5 mg/dL (8.4-10.2); Carbon Dioxide 39 mmol/L (22-29); Chloride 97 mmol/L (96-108); Creatinine Clr Calc Pharmacy 36.8; Estimated Glomerular Filt Rate 50; Glucose Random 312 mg/dL (60-115); Magnesium 2.3 mg/dL (1.6-2.6); Phosphorus 3.6 mg/dL (2.7-4.5); Potassium 4.3 mmol/L (3.3-5.1); Sodium 142 mmol/L (135-145)
[2024-06-17] MEDS: Albuterol/Iprat 2.5/0.5MG 3 ML AMPUL.NEB INHALE (19:17)
[2024-06-18] VITALS (31 sets, daily range): BP systolic 123–155; BP diastolic 48–71; PULSE 90–130; RESP 16–31; TEMP 36.4–36.9; O2SAT 80–97
[2024-06-18 00:31] LABS: Glucose, Whole Blood 234 mg/dL (60-115)
[2024-06-18] MEDS: Insulin Lispro 100 UNIT/ML 3 ML VIAL SUBCUT ×5 (00:33→20:41)
[2024-06-18] MEDS: 0.9 % Sodium Chloride Flush 3 ML SYRINGE IVFLUSH ×4 (00:33→20:45)
[2024-06-18] MEDS: acetaZOLAMIDE sodium 500 MG VIAL IVPUSH ×2 (04:43→16:25)
[2024-06-18 05:45] LABS: Basophils Percent Auto 0.1 % (0-2); Hematocrit 41.2 % (37.0-47.0); Hemoglobin 12.1 g/dl (12.0-16.0); Imm Gran Abs Auto 0.05 X10*3/uL (0.00-0.03); Imm Gran Pct Auto 0.6 % (0.0-0.4); Lymphocytes Absolute Auto 0.2 X10*3/uL (1.2-4.9); Lymphocytes Percent Auto 2.2 % (20-40); MANUAL DIFF FLAG SCAN; Mean Corpuscular HGB Conc 29.4 g/dl (31.0-35.0); Mean Corpuscular Hemoglobin 27.8 pg (27.0-33.0); Mean Corpuscular Volume 94.7 fL (80.0-98.0); Mean Platelet Volume 11.9 fL (9.4-12.3); Monocytes Absolute Auto 0.2 X10*3/uL (0.1-1.2); Monocytes Percent Auto 2.1 % (2-11); Neutrophils Absolute Auto 8.6 x10*3/uL (2.0-8.3); Platelet Count 168 X10*3/uL (160-400); Red Blood Count 4.35 X10*6/uL (4.20-5.50); Red Cell Distribution Width 14.6 % (11.0-16.0); SCAN SMEAR FLAG 1
[2024-06-18 06:04] LABS: Anion Gap 13 (12-20); Blood Urea Nitrogen 39 mg/dL (9-16); Carbon Dioxide 38 mmol/L (22-29); Chloride 98 mmol/L (96-108); Creatinine Clr Calc Pharmacy 45.1; Estimated Glomerular Filt Rate > 60; Glucose Random 182 mg/dL (60-115); Magnesium 2.2 mg/dL (1.6-2.6); Phosphorus 2.7 mg/dL (2.7-4.5); Potassium 3.7 mmol/L (3.3-5.1); Sodium 145 mmol/L (135-145)
[2024-06-18 06:08] LABS: SLIDE REVIEW VERIFIED
--- NOTE | 2024-06-18 07:07 | HO.SKINPHOTO ---
Location: [place] Category: Stage 1
[2024-06-18] MEDS: Albuterol/Iprat 2.5/0.5MG 3 ML AMPUL.NEB INHALE ×4 (07:37→19:06)
[2024-06-18] MEDS: methylPREDNISolone Sod Succ 125 MG/2 ML VIAL 60 MG IVPUSH (08:19)
--- NOTE | 2024-06-18 09:15 | PM.CCPN ---
Subjective Subjective Date of Service: 06/18/24 Interval History: no significant overnight events Critical Care Time (minutes): 60 Physical Exam Vital Signs: Vital Signs: Last Vital Signs Temp 98.3 F 06/18/24 03:00 Pulse 120 H 06/18/24 08:44 Resp 18 06/18/24 08:44 BP 147/68 H 06/18/24 08:44 Pulse Ox 91 L 06/18/24 08:44 O2 Del Method High Flow Nasal C annula 06/18/24 08:44 O2 Flow Rate 40 06/18/24 08:44 FiO2 60 06/18/24 08:44 Oxygen Flow Rate 3 06/10/24 16:45 BMI result Body Mass Index 30.8 Const: General: cooperative, healthy appearing, comfortable, no acute distress, well developed, alert, awake and Physically active Orientation/consciousness: patient oriented x3 HEENT: Head: Yes normal to inspection, Yes normocephalic and Yes atraumatic Eyes: General: appearance normal, both eyes and all related structures Neck: Neck: Yes normal visual inspection, Yes full ROM, Yes no meningeal signs, Yes trachea midline and Yes supple Chest: Chest palpation & inspection: normal inspection of the chest Resp: Other: appreciable expiratory wheezing L greater than R; no appreciable rhonchi, rales Effort & Inspection: normal respiratory effort Cardio: Rate: tachycardic Rhythm: abnormal rhythm GI: Inspection: Yes normal to inspection, No Abdominal wall edema and No distended Palpation (GI): Soft to palpation, not firm, nontender, no guarding and not rigid Skin: General skin exam: no rashes or lesions noted Neuro: General: patient oriented x3, tone normal, moves all extremities, no meningeal signs and no focal motor deficits Extrem: Other: 1+ pitting edema to bilateral shins General: Yes normal to inspection, Yes full ROM and Yes capillary refill normal Psych: Appearance: grossly normal Objective Data Labs 06/18/24 05:17 06/18/24 05:17 Labs: Laboratory Results - last 24 hr 06/17/24 06/17/24 06/17/24 11:50 15:17 15:37 WBC RBC Hgb Hct MCV MCH MCHC RDW Plt Count MPV Immature Gran % (Auto) Neut % (Auto) Lymph % (Auto) [place] % (Auto) Eos % (Auto) Baso % (Auto) Lymph # (Auto) [place] # (Auto) Eos # (Auto) Baso # (Auto) Abs Immat Gran (auto) Absolute Neuts (auto) Absolute Nucleated RBC Nucleated RBC % (auto) Smear Tech's Comments Hold Purple Top O2 Saturation 92.0 ABG pH at Pt Temp 7.31 L ABG pCO2 at Pt Temp 99 H* ABG pO2 at Pt Temp 70 L ABG HCO3 50 H ABG Base Excess (Actual) 18.6 VBG pH VBG pCO2 VBG pO2 VBG HCO3 VBG O2 Saturation VBG Base Excess Sodium Potassium Chloride Carbon Dioxide Anion Gap BUN Creatinine Estim Creat Clear Calc Estimated GFR POC Glucose 164 H 255 H Random Glucose Calcium Phosphorus Magnesium 06/17/24 06/17/24 06/17/24 16:10 18:42 18:46 WBC RBC Hgb Hct MCV MCH MCHC RDW Plt Count MPV Immature Gran % (Auto) Neut % (Auto) Lymph % (Auto) [place] % (Auto) Eos % (Auto) Baso % (Auto) Lymph # (Auto) [place] # (Auto) Eos # (Auto) Baso # (Auto) Abs Immat Gran (auto) Absolute Neuts (auto) Absolute Nucleated RBC Nucleated RBC % (auto) Smear Tech's Comments Hold Purple Top SEE NOTE O2 Saturation ABG pH at Pt Temp ABG pCO2 at Pt Temp ABG pO2 at Pt Temp ABG HCO3 ABG Base Excess (Actual) VBG pH 7.44 H VBG pCO2 61 VBG pO2 77 VBG HCO3 41 H VBG O2 Saturation 97.0 VBG Base Excess 14.5 Sodium 142 Potassium 4.3 Chloride 97 Carbon Dioxide 39 H Anion Gap 10 L BUN 35 H Creatinine 1.03 Estim Creat Clear Calc 36.8 Estimated GFR 50 POC Glucose 289 H 269 H Random Glucose 312 H Calcium 8.5 Phosphorus 3.6 Magnesium 2.3 06/18/24 06/18/24 00:16 05:17 WBC 9.0 RBC 4.35 Hgb 12.1 Hct 41.2 MCV 94.7 MCH 27.8 MCHC 29.4 L RDW 14.6 Plt Count 168 MPV 11.9 Immature Gran % (Auto) 0.6 H Neut % (Auto) 95.0 H Lymph % (Auto) 2.2 L [place] % (Auto) 2.1 Eos % (Auto) 0.0 Baso % (Auto) 0.1 Lymph # (Auto) 0.2 L [place] # (Auto) 0.2 Eos # (Auto) 0.0 Baso # (Auto) 0.0 Abs Immat Gran (auto) 0.05 H Absolute Neuts (auto) 8.6 H Absolute Nucleated RBC 0.000 Nucleated RBC % (auto) 0.0 Smear Tech's Comments VERIFIED Hold Purple Top O2 Saturation ABG pH at Pt Temp ABG pCO2 at Pt Temp ABG pO2 at Pt Temp ABG HCO3 ABG Base Excess (Actual) VBG pH VBG pCO2 VBG pO2 VBG HCO3 VBG O2 Saturation VBG Base Excess Sodium 145 Potassium 3.7 Chloride 98 Carbon Dioxide 38 H Anion Gap 13 BUN 39 H Creatinine 0.84 Estim Creat Clear Calc 45.1 Estimated GFR > 60 POC Glucose 234 H Random Glucose 182 H Calcium 9.0 Phosphorus 2.7 Magnesium 2.2 Microbiology Microbiology Results: Microbiology 06/10/24 18:07 Blood - Venous Blood Culture - Final No growth after 5 days. 06/10/24 18:07 Blood - Venous Blood Culture - Final No growth after 5 days. Progress Note: A&P Assessment and plan (1) Acute and chronic respiratory failure ([id number]): Status: Acute (2) Congestive heart failure: Status: Acute (3) COPD (chronic obstructive pulmonary disease): Status: Acute Plan Patient is a 89 Y F w/ hypertension, hyperlipidemia, diabetes mellitus, heart failure w/ reduced ejection fraction, atrial fibrillation on apixaban, prior lung cancer s/p RU lobectomy, COPD, as well as chronic hypoxic respiratory failure, on 3 L NC, presenting to emergency department initially on 06/11 w/ dyspnea, admitted to medicine for CHF vs COPD exacerbation management; ICU consulted on 06/17 d/t worsening dyspnea, found to have worsening hypercarbia, started on BiPAP; plan for diuresis for possible CHF and COPD management w/ BiPAP, duonebs, steroids, and antibiotics N: no acute issues CV: possible CHF exacerbation, diuresis; atrial fibrillation on apixaban R: acute on chronic mixed respiratory failure, likely multi-factorial, CHF and/or COPD; COPD management w/ duonebs, steroids, antibiotics; BiPAP vs HFNC, wean as tolerated GI: NPO while on BiPAP; advance as tolerated : no acute issues; diuresis w/ furosemide, acetazolamide H: no acute issues; atrial fibrillation on apixaban ID: empiric ceftriaxone, azithromycin in setting of COPD exacerbation; do not suspect sepsis at this time E: diabetes mellitus; to monitor hypo-/hyper-glycemia P: no acute issues Quality Stroke Does the patient have a stroke diagnosis?: No VTE Prior VTE?: No VTE Risk Level:: Medical - moderate - high VTE Device Contraindication: Treatment Not Indicated VTE Drug Contraindication: N/A - Med Ordered
--- NOTE | 2024-06-18 10:17 | W.MHC.ACPN ---
Advanced Care Planning Note Advanced Care Planning Note Discussed with: patient and family member(s) Time spent (in minutes): 30 Narrative: I met Ms. Horta and her grandaughter and healthcare proxy at the bedside this morning; we discussed Ms. Horta's hospital and ICU course; we discussed code status; Ms. Horta reports that she is family with code status discussions as her and two sons have already from COPD and they were all transitioned to DNR at a point in time of their disease; Ms. Horta reports that if interventions were unable to restore her independence, she would not want CPR nor intubation/ventilation; I expressed that it is not possible for us to promise that these interventions will preserve her independence, and also expressed that her illnesses are chronic, and will likely only worsen her condition in the near and far future; Ms. Horta expressed understanding of this, and stated her children will decide her code status; I encouraged her to engage in conversation with them; preliminarily, Ms. Horta's granddaughter stated Ms. Horta should be DNR; again, I encouraged Ms. Horta to discuss with all her healthcare proxys; in the meantime, we will maintain her code status as full code Problems Discussed (1) Acute and chronic respiratory failure ([id number]): (2) Congestive heart failure: (3) COPD (chronic obstructive pulmonary disease):
[2024-06-18] MEDS: Metoprolol Tartrate 10 MG in 0.9 % Sodium Chloride 50 ML 240 MG IV ×3 (10:31→21:37)
[2024-06-18 11:35] LABS: Glucose, Whole Blood 216 mg/dL (60-115)
--- NOTE | 2024-06-18 11:42 | MHC.SL.SWA ---
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 Patient is able to feed herself, but will need 1:1 supervision to monitor given compromised respiratory status. Aspiration precautions include: small bites, moisten food with thick sauce/gravy, alternate bites with sips of liquid, liquid by teaspoon or individual cup sips, avoid the use of straws, ensure upright 90 degree position for meals/snacks. Oral Medication Intake: Whole with Puree Please contact the pharmacy regarding appropriate crushable or liquid drug formulations that are available whenever modified delivery is recommended. Compensatory Strategies and Precautions to be Taken for Safe Swallow: Sitting Upright (90 deg) Double Swallow No Straw Liquids from Cup Liquids from Spoon Alternate Liquids/Solids Rate of Ingestion Change Avoid Specific Foods Supervision While Eating and Drinking for Safe Swallow: Total Supervision (1:1) Foods to Avoid: Mixed consistencies Swallowing Recommended Treatments: Compens. Strategy Educat. Recommendation for Speech: Inpatient Speech Therapy Comment: DATA MODELER will continue to follow to monitor tolerance of modified diet, re-assess feeding needs, education for recommended strategies Frequency/Duration: M-F Date Range for Service Req: Timeline to reassess: PRN Sales Advisor Clinican/Clinical Fellow: No Supervisory Statement: I have reviewed and agree with the student/clinical fellow's documentation: N/A Speech Language Pathologist: Fannie Ahuja M.A., CCC-DATA MODELER
[2024-06-18] MEDS: cefTRIAXone sodium 1 GM VIAL IVPUSH (16:23)
[2024-06-18] MEDS: Azithromycin 500 MG in 0.9 % Sodium Chloride 250 ML 125 MG IV (16:23)
[2024-06-18] MEDS: Furosemide 40 MG/4 ML VIAL IVPUSH (17:35)
[2024-06-18 17:42] LABS: Glucose, Whole Blood 284 mg/dL (60-115)
[2024-06-18 18:45] LABS: Anion Gap 15 (12-20); Blood Urea Nitrogen 45 mg/dL (9-16); Calcium 8.8 mg/dL (8.4-10.2); Carbon Dioxide 35 mmol/L (22-29); Chloride 98 mmol/L (96-108); Creatinine Clr Calc Pharmacy 33.2; Estimated Glomerular Filt Rate 45; Glucose Random 354 mg/dL (60-115); Magnesium 2.2 mg/dL (1.6-2.6); Phosphorus 3.5 mg/dL (2.7-4.5); Potassium 3.7 mmol/L (3.3-5.1); Sodium 144 mmol/L (135-145)
[2024-06-18 20:34] LABS: Glucose, Whole Blood 241 mg/dL (60-115)
[2024-06-18] MEDS: Apixaban 5 MG TABLET PO (20:36)
[2024-06-18] MEDS: Atorvastatin Calcium 20 MG TABLET PO (20:36)
[2024-06-18] MEDS: Insulin Glargine,Hum.rec.anlog 100 UNIT/ML 10 ML VIAL SUBCUT (20:39)
[2024-06-19] VITALS (28 sets, daily range): BP systolic 103–149; BP diastolic 36–87; PULSE 67–139; RESP 16–33; TEMP 36.2–37.2; O2SAT 89–98
[2024-06-19] MEDS: Metoprolol Tartrate 10 MG in 0.9 % Sodium Chloride 50 ML 240 MG IV ×4 (03:51→22:09)
[2024-06-19] MEDS: acetaZOLAMIDE sodium 500 MG VIAL IVPUSH ×2 (04:05→17:32)
[2024-06-19 05:31] LABS: VBG Base Excess 16.2 mmol/L; VBG HCO3 43 mmol/L (22-26); VBG pCO2 66 mmHg; VBG pH 7.43 (7.32-7.43); VBG pO2 59 mmHg
[2024-06-19 05:44] LABS: Basophils Percent Auto 0.1 % (0-2); Hematocrit 39.1 % (37.0-47.0); Hemoglobin 11.5 g/dl (12.0-16.0); Imm Gran Abs Auto 0.19 X10*3/uL (0.00-0.03); Imm Gran Pct Auto 1.2 % (0.0-0.4); Lymphocytes Absolute Auto 0.4 X10*3/uL (1.2-4.9); Lymphocytes Percent Auto 2.7 % (20-40); MANUAL DIFF FLAG SCAN; Mean Corpuscular HGB Conc 29.4 g/dl (31.0-35.0); Mean Corpuscular Hemoglobin 27.7 pg (27.0-33.0); Mean Corpuscular Volume 94.2 fL (80.0-98.0); Mean Platelet Volume 12.3 fL (9.4-12.3); Monocytes Absolute Auto 0.7 X10*3/uL (0.1-1.2); Monocytes Percent Auto 4.1 % (2-11); Neutrophils Absolute Auto 14.5 x10*3/uL (2.0-8.3); Neutrophils Percent Auto 91.9 % (45-73); PLT CLUMP 1; Red Blood Count 4.15 X10*6/uL (4.20-5.50); Red Cell Distribution Width 15.1 % (11.0-16.0); SCAN SMEAR FLAG 1
[2024-06-19 06:14] LABS: Platelet Count 150 X10*3/uL (160-400); SLIDE REVIEW VERIFIED; White Blood Count 15.8 X10*3/uL (4.8-10.8)
[2024-06-19 06:22] LABS: Anion Gap 14 (12-20); Blood Urea Nitrogen 42 mg/dL (9-16); Calcium 8.4 mg/dL (8.4-10.2); Carbon Dioxide 34 mmol/L (22-29); Chloride 99 mmol/L (96-108); Creatinine Clr Calc Pharmacy 42.6; Estimated Glomerular Filt Rate 60; Glucose Random 170 mg/dL (60-115); Magnesium 2.1 mg/dL (1.6-2.6); Potassium 5.3 mmol/L (3.3-5.1); Sodium 142 mmol/L (135-145)
[2024-06-19 06:51] LABS: Venous Blood Gas Refer to POC result
[2024-06-19 07:46] LABS: Glucose, Whole Blood 175 mg/dL (60-115)
[2024-06-19] MEDS: 0.9 % Sodium Chloride Flush 3 ML SYRINGE IVFLUSH ×3 (07:52→23:53)
[2024-06-19] MEDS: Apixaban 5 MG TABLET PO ×2 (07:52→20:54)
[2024-06-19] MEDS: Insulin Lispro 100 UNIT/ML 3 ML VIAL SUBCUT ×4 (07:52→20:58)
[2024-06-19] MEDS: methylPREDNISolone Sod Succ 125 MG/2 ML VIAL 60 MG IVPUSH (07:53)
[2024-06-19] MEDS: Furosemide 40 MG/4 ML VIAL IVPUSH ×2 (07:53→17:32)
[2024-06-19] MEDS: Albuterol/Iprat 2.5/0.5MG 3 ML AMPUL.NEB INHALE ×4 (07:53→19:44)
--- NOTE | 2024-06-19 09:04 | P.PNCC_ITS ---
Subjective Subjective Date of Service: 06/19/24 Interval History: no significant overnight events Critical Care Time (minutes): 60 Physical Exam 2 Vital Signs: Vital Signs: Last Vital Signs Temp 97.1 F 06/19/24 08:00 Pulse 125 H 06/19/24 08:00 Resp 26 H 06/19/24 08:00 BP 126/87 06/19/24 08:00 Pulse Ox 89 L 06/19/24 08:00 O2 Del Method High Flow Nasal C annula 06/19/24 08:00 O2 Flow Rate 40 06/19/24 08:00 FiO2 45 06/19/24 08:00 Oxygen Flow Rate 3 06/10/24 16:45 BMI result Body Mass Index 30.8 Const: General: cooperative, healthy appearing, comfortable, no acute distress, well developed, alert, awake and Physically active O rientation/consciousness: patient oriented x3 HEENT: Head: Yes normal to inspection, Yes normocephalic and Yes atraumatic Eyes: General: appearance normal, both eyes and all related structures Neck: Neck: Yes normal visual inspection, Yes full ROM, Yes no meningeal signs, Yes trachea midline and Yes supple Chest: Chest palpation & inspection: normal inspection of the chest Resp: Other: appreciable expiratory wheezing throughout Effort & Inspection: normal respiratory effort Cardio: Rate: regular rate Rhythm: regular rhythm GI: Inspection: Yes normal to inspection, No Abdominal wall edema and No distended Palpation (GI): Soft to palpation, not firm, nontender, no guarding and not rigid Skin: General skin exam: no rashes or lesions noted Neuro: General: patient oriented x3, tone normal, moves all extremities, no meningeal signs and no focal motor deficits Extrem: Other: appreciable trace pitting edema to b/l lower extremities General: Yes normal to inspection, Yes full ROM and Yes capillary refill normal Psych: Appearance: grossly normal Objective Data Labs 06/19/24 05:34 06/19/24 05:34 Labs: Laboratory Results - last 24 hr 06/18/24 06/18/24 06/18/24 11:27 17:37 18:11 WBC RBC Hgb Hct MCV MCH MCHC RDW Plt Count MPV Immature Gran % (Auto) Neut % (Auto) Lymph % (Auto) [place] % (Auto) Eos % (Auto) Baso % (Auto) Lymph # (Auto) [place] # (Auto) Eos # (Auto) Baso # (Auto) Abs Immat Gran (auto) Absolute Neuts (auto) Absolute Nucleated RBC Nucleated RBC % (auto) Smear Tech's Comments Hold Purple Top VBG pH VBG pCO2 VBG pO2 VBG HCO3 VBG O2 Saturation VBG Base Excess Sodium 144 Potassium 3.7 Chloride 98 Carbon Dioxide 35 H Anion Gap 15 BUN 45 H Creatinine 1.14 Estim Creat Clear Calc 33.2 Estimated GFR 45 POC Glucose 216 H 284 H Random Glucose 354 H* Calcium 8.8 Phosphorus 3.5 Magnesium 2.2 06/18/24 06/18/24 06/19/24 18:15 20:31 05:19 WBC RBC Hgb Hct MCV MCH MCHC RDW Plt Count MPV Immature Gran % (Auto) Neut % (Auto) Lymph % (Auto) [place] % (Auto) Eos % (Auto) Baso % (Auto) Lymph # (Auto) [place] # (Auto) Eos # (Auto) Baso # (Auto) Abs Immat Gran (auto) Absolute Neuts (auto) Absolute Nucleated RBC Nucleated RBC % (auto) Smear Tech's Comments Hold Purple Top SEE NOTE VBG pH 7.43 VBG pCO2 66 VBG pO2 59 VBG HCO3 43 H VBG O2 Saturation 88.0 VBG Base Excess 16.2 Sodium Potassium Chloride Carbon Dioxide Anion Gap BUN Creatinine Estim Creat Clear Calc Estimated GFR POC Glucose 241 H Random Glucose Calcium Phosphorus Magnesium 06/19/24 06/19/24 05:34 07:43 WBC 15.8 H RBC 4.15 L Hgb 11.5 L Hct 39.1 MCV 94.2 MCH 27.7 MCHC 29.4 L RDW 15.1 Plt Count 150 L MPV 12.3 Immature Gran % (Auto) 1.2 H Neut % (Auto) 91.9 H Lymph % (Auto) 2.7 L [place] % (Auto) 4.1 Eos % (Auto) 0.0 Baso % (Auto) 0.1 Lymph # (Auto) 0.4 L [place] # (Auto) 0.7 Eos # (Auto) 0.0 Baso # (Auto) 0.0 Abs Immat Gran (auto) 0.19 H Absolute Neuts (auto) 14.5 H Absolute Nucleated RBC 0.000 Nucleated RBC % (auto) 0.0 Smear Tech's Comments VERIFIED Hold Purple Top VBG pH VBG pCO2 VBG pO2 VBG HCO3 VBG O2 Saturation VBG Base Excess Sodium 142 Potassium 5.3 H D Chloride 99 Carbon Dioxide 34 H Anion Gap 14 BUN 42 H Creatinine 0.89 Estim Creat Clear Calc 42.6 Estimated GFR 60 POC Glucose 175 H Random Glucose 170 H Calcium 8.4 Phosphorus 4.0 Magnesium 2.1 Microbiology Microbiology Results: Microbiology 06/10/24 18:07 Blood - Venous Blood Culture - Final No growth after 5 days. 06/10/24 18:07 Blood - Venous Blood Culture - Final No growth after 5 days. Progress Note: A&P Assessment and plan (1) Acute and chronic respiratory failure ([id number]): Status: Acute (2) Congestive heart failure: Status: Acute (3) COPD (chronic obstructive pulmonary disease): Status: Acute Plan Patient is a 89 Y F w/ hypertension, hyperlipidemia, diabetes mellitus, heart failure w/ reduced ejection fraction, atrial fibrillation on apixaban, prior lung cancer s/p RU lobectomy, COPD, as well as chronic hypoxic respiratory failure, on 3 L NC, presenting to emergency department initially on 06/11 w/ dyspnea, admitted to medicine for CHF vs COPD exacerbation management; ICU consulted on 06/17 d/t worsening dyspnea, found to have worsening hypercarbia, started on BiPAP; plan for diuresis for possible CHF and COPD management w/ BiPAP, duonebs, steroids, and antibiotics N: no acute issues CV: possible CHF exacerbation, diuresis; atrial fibrillation on apixaban, diltiazem, metoprolol R: acute on chronic mixed respiratory failure, likely multi-factorial, CHF and/or COPD; COPD management w/ duonebs, steroids, antibiotics; BiPAP vs HFNC, wean as tolerated GI: modified diet : no acute issues; diuresis w/ furosemide, acetazolamide H: no acute issues; atrial fibrillation on apixaban ID: empiric ceftriaxone, azithromycin in setting of COPD exacerbation; do not suspect sepsis at this time E: diabetes mellitus; to monitor hypo-/hyper-glycemia P: no acute issues Quality Stroke Does the patient have a stroke diagnosis?: No VTE Prior VTE?: No VTE Risk Level:: Medical - moderate - high VTE Device Contraindication: N/A - Device Ordered VTE Drug Contraindication: N/A - Med Ordered
[2024-06-19] MEDS: dilTIAZem HCL CD 180 MG CAP.ER.24H PO (10:50)
[2024-06-19 11:41] LABS: Glucose, Whole Blood 255 mg/dL (60-115)
--- NOTE | 2024-06-19 11:41 | PC.RT ---
Pt awake and alert oob in chair. Pt transitioned to [place] cannula @ 8 lpm. Nursing aware.Pt caroline well.
[2024-06-19] MEDS: cefTRIAXone sodium 1 GM VIAL IVPUSH (15:46)
[2024-06-19] MEDS: Azithromycin 500 MG in 0.9 % Sodium Chloride 250 ML 125 MG IV (15:46)
[2024-06-19 16:44] LABS: Glucose, Whole Blood 237 mg/dL (60-115)
[2024-06-19 20:15] LABS: Anion Gap 11 (12-20); Blood Urea Nitrogen 49 mg/dL (9-16); Calcium 8.5 mg/dL (8.4-10.2); Carbon Dioxide 39 mmol/L (22-29); Chloride 99 mmol/L (96-108); Creatinine Clr Calc Pharmacy 37.1; Estimated Glomerular Filt Rate 51; Glucose Random 205 mg/dL (60-115); Magnesium 2.2 mg/dL (1.6-2.6); Phosphorus 4.4 mg/dL (2.7-4.5); Potassium 3.4 mmol/L (3.3-5.1); Sodium 146 mmol/L (135-145)
[2024-06-19] MEDS: Atorvastatin Calcium 20 MG TABLET PO (20:54)
[2024-06-19 20:57] LABS: Glucose, Whole Blood 167 mg/dL (60-115)
[2024-06-20] VITALS (29 sets, daily range): BP systolic 108–155; BP diastolic 40–71; PULSE 79–124; RESP 16–26; TEMP 36.3–37.3; O2SAT 55–97
[2024-06-20] MEDS: Metoprolol Tartrate 10 MG in 0.9 % Sodium Chloride 50 ML 240 MG IV ×2 (04:04→09:25)
[2024-06-20] MEDS: acetaZOLAMIDE sodium 500 MG VIAL IVPUSH ×2 (04:34→16:57)
[2024-06-20 05:57] LABS: VBG Base Excess 14.7 mmol/L; VBG HCO3 38 mmol/L (22-26); VBG pCO2 44 mmHg; VBG pH 7.54 (7.32-7.43); VBG pO2 48 mmHg
[2024-06-20 06:02] LABS: Venous Blood Gas Refer to POC result
[2024-06-20 06:08] LABS: Basophils Percent Auto 0.2 % (0-2); Hematocrit 42.9 % (37.0-47.0); Hemoglobin 12.2 g/dl (12.0-16.0); Imm Gran Abs Auto 0.14 X10*3/uL (0.00-0.03); Imm Gran Pct Auto 1.1 % (0.0-0.4); Lymphocytes Absolute Auto 0.3 X10*3/uL (1.2-4.9); Lymphocytes Percent Auto 2.6 % (20-40); MANUAL DIFF FLAG SCAN; Mean Corpuscular HGB Conc 28.4 g/dl (31.0-35.0); Mean Corpuscular Hemoglobin 27.4 pg (27.0-33.0); Mean Corpuscular Volume 96.2 fL (80.0-98.0); Mean Platelet Volume 12.1 fL (9.4-12.3); Monocytes Absolute Auto 0.6 X10*3/uL (0.1-1.2); Monocytes Percent Auto 5.2 % (2-11); Neutrophils Absolute Auto 11.1 x10*3/uL (2.0-8.3); Neutrophils Percent Auto 90.9 % (45-73); Platelet Count 170 X10*3/uL (160-400); Red Blood Count 4.46 X10*6/uL (4.20-5.50); Red Cell Distribution Width 15.1 % (11.0-16.0); SCAN SMEAR FLAG 1; White Blood Count 12.2 X10*3/uL (4.8-10.8)
[2024-06-20 06:25] LABS: Anion Gap 14 (12-20); Blood Urea Nitrogen 47 mg/dL (9-16); Calcium 8.8 mg/dL (8.4-10.2); Carbon Dioxide 36 mmol/L (22-29); Chloride 99 mmol/L (96-108); Creatinine Clr Calc Pharmacy 37.6; Estimated Glomerular Filt Rate 52; Glucose Random 184 mg/dL (60-115); Magnesium 2.2 mg/dL (1.6-2.6); Phosphorus 4.3 mg/dL (2.7-4.5); Potassium 3.5 mmol/L (3.3-5.1); Sodium 145 mmol/L (135-145)
[2024-06-20 06:34] LABS: SLIDE REVIEW VERIFIED
[2024-06-20] MEDS: Albuterol/Iprat 2.5/0.5MG 3 ML AMPUL.NEB INHALE ×4 (07:31→20:36)
[2024-06-20 07:54] LABS: Glucose, Whole Blood 158 mg/dL (60-115)
[2024-06-20] MEDS: Insulin Lispro 100 UNIT/ML 3 ML VIAL SUBCUT ×4 (08:33→22:52)
[2024-06-20] MEDS: dilTIAZem HCL CD 180 MG CAP.ER.24H PO (08:35)
[2024-06-20] MEDS: 0.9 % Sodium Chloride Flush 3 ML SYRINGE IVFLUSH ×3 (08:35→20:48)
[2024-06-20] MEDS: Apixaban 5 MG TABLET PO ×2 (08:36→20:47)
[2024-06-20] MEDS: methylPREDNISolone Sod Succ 125 MG/2 ML VIAL 60 MG IVPUSH (08:37)
[2024-06-20] MEDS: Furosemide 40 MG/4 ML VIAL IVPUSH ×2 (08:46→17:02)
--- NOTE | 2024-06-20 10:04 | P.PNCC_ITS ---
Subjective Subjective Date of Service: 06/20/24 Interval History: An year old lady with underlying history of hypertension, diabetes mellitus, systolic heart failure AFib apixaban prior lung cancer status post right upper lobectomy, supplemental oxygen 3 L at baseline dependent admitted 2024 dyspnea treated for congestive heart failure exacerbation, hospital course significant for development of hypercapnia requiring BiPAP support and transferred to intensive care on 06/17/2024. Now titrated off daytime BiPAP support, uses BiPAP at night. CO2 retention improved with Diamox. No events overnight. Critical Care Time (minutes): 0 Physical Exam 2 Vital Signs: Vital Signs: Last Vital Signs Temp 98.4 F 06/20/24 08:00 Pulse 118 H 06/20/24 09:00 Resp 21 H 06/20/24 09:00 BP 121/50 L 06/20/24 09:00 Pulse Ox 94 06/20/24 09:00 O2 Del Method Nasal Cannula 06/20/24 09:00 O2 Flow Rate 6 06/20/24 09:00 FiO2 40 06/20/24 03:57 Oxygen Flow Rate 3 06/10/24 16:45 BMI result Body Mass Index 30.8 Const: General: no acute distress, alert and awake Eyes: Sclerae: sclerae normal EOM: EOMs intact bilaterally Neck: Neck: Yes no lymphadenopathy, Yes trachea midline and Yes supple Resp: Effort & Inspection: normal respiratory effort and no respiratory distress Auscultation: clear to auscultation bilaterally Cardio: Rate: tachycardic Rhythm: abnormal rhythm irregularly irregular Heart sounds: no gallops, no murmurs and no rubs GI: Palpation (GI): Soft to palpation and Other GI palpation findings present ( Nontender) Auscultation: normal bowel sounds Extrem: General: No clubbing, No cyanosis and Yes edema (Trace bilateral) Objective Data Labs 06/20/24 05:52 06/20/24 05:52 Labs: Laboratory Results - last 24 hr 06/19/24 06/19/24 06/19/24 11:35 16:41 19:32 WBC RBC Hgb Hct MCV MCH MCHC RDW Plt Count MPV Immature Gran % (Auto) Neut % (Auto) Lymph % (Auto) [place] % (Auto) Eos % (Auto) Baso % (Auto) Lymph # (Auto) [place] # (Auto) Eos # (Auto) Baso # (Auto) Abs Immat Gran (auto) Absolute Neuts (auto) Absolute Nucleated RBC Nucleated RBC % (auto) Smear Tech's Comments Hold Purple Top SEE NOTE VBG pH VBG pCO2 VBG pO2 VBG HCO3 VBG O2 Saturation VBG Base Excess Sodium 146 H Potassium 3.4 D Chloride 99 Carbon Dioxide 39 H Anion Gap 11 L BUN 49 H Creatinine 1.02 Estim Creat Clear Calc 37.1 Estimated GFR 51 POC Glucose 255 H 237 H Random Glucose 205 H Calcium 8.5 Phosphorus 4.4 Magnesium 2.2 Hold Yellow Top See Note 06/19/24 06/20/24 06/20/24 20:54 05:45 05:52 WBC 12.2 H RBC 4.46 Hgb 12.2 Hct 42.9 MCV 96.2 MCH 27.4 MCHC 28.4 L RDW 15.1 Plt Count 170 MPV 12.1 Immature Gran % (Auto) 1.1 H Neut % (Auto) 90.9 H Lymph % (Auto) 2.6 L [place] % (Auto) 5.2 Eos % (Auto) 0.0 Baso % (Auto) 0.2 Lymph # (Auto) 0.3 L [place] # (Auto) 0.6 Eos # (Auto) 0.0 Baso # (Auto) 0.0 Abs Immat Gran (auto) 0.14 H Absolute Neuts (auto) 11.1 H Absolute Nucleated RBC 0.000 Nucleated RBC % (auto) 0.0 Smear Tech's Comments VERIFIED Hold Purple Top VBG pH 7.54 H VBG pCO2 44 VBG pO2 48 VBG HCO3 38 H VBG O2 Saturation 85.0 VBG Base Excess 14.7 Sodium 145 Potassium 3.5 Chloride 99 Carbon Dioxide 36 H Anion Gap 14 BUN 47 H Creatinine 1.01 Estim Creat Clear Calc 37.6 Estimated GFR 52 POC Glucose 167 H Random Glucose 184 H Calcium 8.8 Phosphorus 4.3 Magnesium 2.2 Hold Yellow Top 06/20/24 07:44 WBC RBC Hgb Hct MCV MCH MCHC RDW Plt Count MPV Immature Gran % (Auto) Neut % (Auto) Lymph % (Auto) [place] % (Auto) Eos % (Auto) Baso % (Auto) Lymph # (Auto) [place] # (Auto) Eos # (Auto) Baso # (Auto) Abs Immat Gran (auto) Absolute Neuts (auto) Absolute Nucleated RBC Nucleated RBC % (auto) Smear Tech's Comments Hold Purple Top VBG pH VBG pCO2 VBG pO2 VBG HCO3 VBG O2 Saturation VBG Base Excess Sodium Potassium Chloride Carbon Dioxide Anion Gap BUN Creatinine Estim Creat Clear Calc Estimated GFR POC Glucose 158 H Random Glucose Calcium Phosphorus Magnesium Hold Yellow Top Microbiology Microbiology Results: Microbiology 06/10/24 18:07 Blood - Venous Blood Culture - Final No growth after 5 days. 06/10/24 18:07 Blood - Venous Blood Culture - Final No growth after 5 days. Progress Note: A&P Assessment and plan (1) COPD (chronic obstructive pulmonary disease): Status: Acute (2) Acute and chronic respiratory failure with hypoxia: Status: Acute (3) History of chronic carbon dioxide retention: Status: Acute (4) Type 2 diabetes mellitus with hyperglycemia: Status: Acute (5) Atrial fibrillation with rapid ventricular response: Status: Acute (6) Congestive heart failure: Status: Acute (7) Coronary artery disease: Status: Acute Plan Assessment: 89-year-old lady admitted with acute on chronic hypoxic respiratory failure secondary to exacerbation of underlying chronic systolic congestive heart failure further complicated by hypercapnic respiratory failure briefly requiring BiPAP support Plan: Neuro: No acute issues. Cardiac: Underlying chronic systolic congestive heart failure with recent exacerbation, improving with diuresis. Underlying history of CAD. Underlying AFib on anticoagulation and rate control with metoprolol and diltiazem. Pulmonary: Acute on chronic hypoxic and hypercapnic respiratory failure secondary to exacerbation of underlying congestive heart failure, titrated off daytime BiPAP support. Continues on nocturnal BiPAP. Underlying advanced COPD 3 L supplemental oxygen dependent at baseline. Renal: No acute issues. Endo: No acute issues. Underlying diabetes mellitus, continue subcutaneous insulin protocol. GI: No acute issues. ID: Empirically treated with ceftriaxone and azithromycin for COPD exacerbation, will discontinuing monitor off antibiotics. Heme/Onc: No acute issues. Psych: No acute issues. Miscellaneous: No acute issues. Prophylaxis: Apixaban Diet: Regular Quality Stroke Does the patient have a stroke diagnosis?: No VTE Prior VTE?: No VTE Risk Level:: Medical - moderate - high VTE Device Contraindication: N/A - Device Ordered VTE Drug Contraindication: N/A - Med Ordered
[2024-06-20 10:40] LABS: ABG Base Excess 15.3 mmol/L; ABG HCO3 45 mmol/L (22-26); ABG pCO2 82 mmHg (32-45); ABG pH 7.34 (7.35-7.45); ABG pO2 73 mmHg (83-108)
[2024-06-20] MEDS: Metoprolol Tartrate 50 MG TABLET PO ×2 (10:55→20:48)
[2024-06-20 11:41] LABS: ABG Refer to POC result
[2024-06-20 11:44] LABS: Glucose, Whole Blood 248 mg/dL (60-115)
--- NOTE | 2024-06-20 13:50 | MHC.CM.PN ---
Pt continues care in ICU: on high flow O2: plans for the day include weaning down O2 and converting IV Beta dante to po. Pt from home w/dtr: has been accepted to [facility] or [facility] should she need STR. CM to follow
--- NOTE | 2024-06-20 15:52 | MHC.SL.SWA ---
Speech Pathologist Impression: Mild oral, moderate pharyngeal dysphagia secondary to weakness, respiratory compromise Risk of Aspiration Due to: Medically Fragile Respiratory involvement Dysphasia Diet Status: Hx prior lung cancer s/p RU lobectomy, COPD, chronic hypoxic respiratory failure on 3L NC Liquid Consistency and Strategies for Safe Swallow: Liquid Intake Recommendation: Thin Liquid Intake Strategies: Small Sips No Straws Solid Food Consistency: Dietary Recommendations: Chopped/Advanced (NDD3) Additional Modifications to Solid Foods: Recommend CHOPPED/ADVANCED (NDD3) solids and thin liquids, pills crushed in PUREE. Patient is able to feed herself, but will need 1:1 supervision to monitor d/t impulsivity and compromised respiratory status. Aspiration precautions include: small bites, moisten food with thick sauce/gravy, alternate bites with sips of liquid, liquid by teaspoon or individual cup sips, avoid the use of straws, ensure upright 90 degree position for meals/snacks. Oral Medication Intake: Crushed with Puree Please contact the pharmacy regarding appropriate crushable or liquid drug formulations that are available whenever modified delivery is recommended. Compensatory Strategies and Precautions to be Taken for Safe Swallow: Sitting Upright (90 deg) No Straw Liquids from Cup Small Bites and Sips Alternate Liquids/Solids Rate of Ingestion Change Oral Check Supervision While Eating and Drinking for Safe Swallow: Total Supervision (1:1) Foods to Avoid: Mixed consistencies Swallowing Recommended Treatments: Compens. Strategy Educat. Recommendation for Speech: Inpatient Speech Therapy Comment: Coughing on thin liquids d/t impulsivity, recc avoiding straws, cueing pt to slow pace prior to taking sips of thin liquids Frequency/Duration: M-F Date Range for Service Req: Timeline to reassess: PRN Fruit Distributor Clinican/Clinical Fellow: No Supervisory Statement: I have reviewed and agree with the student/clinical fellow's documentation: N/A Speech Language Pathologist: Jennifer Barraza M.S., CCC-SALVAGE SUPERVISOR
[2024-06-20 17:14] LABS: Glucose, Whole Blood 219 mg/dL (60-115)
[2024-06-20] MEDS: Atorvastatin Calcium 20 MG TABLET PO (20:47)
[2024-06-21] VITALS (17 sets, daily range): BP systolic 115–149; BP diastolic 56–67; PULSE 61–109; RESP 16–24; TEMP 36.2–37.2; O2SAT 90–99
[2024-06-21 00:34] LABS: Glucose, Whole Blood 163 mg/dL (60-115)
[2024-06-21] MEDS: acetaZOLAMIDE sodium 500 MG VIAL IVPUSH ×2 (05:40→17:10)
[2024-06-21 06:57] LABS: Basophils Percent Auto 0.2 % (0-2); Hematocrit 41.4 % (37.0-47.0); Hemoglobin 11.7 g/dl (12.0-16.0); Imm Gran Abs Auto 0.08 X10*3/uL (0.00-0.03); Imm Gran Pct Auto 0.6 % (0.0-0.4); Lymphocytes Absolute Auto 0.3 X10*3/uL (1.2-4.9); Lymphocytes Percent Auto 2.6 % (20-40); MANUAL DIFF FLAG SCAN; Mean Corpuscular HGB Conc 28.3 g/dl (31.0-35.0); Mean Corpuscular Hemoglobin 27.4 pg (27.0-33.0); Mean Platelet Volume 11.9 fL (9.4-12.3); Monocytes Absolute Auto 0.7 X10*3/uL (0.1-1.2); Monocytes Percent Auto 5.5 % (2-11); Neutrophils Percent Auto 91.1 % (45-73); Platelet Count 164 X10*3/uL (160-400); Red Blood Count 4.27 X10*6/uL (4.20-5.50); Red Cell Distribution Width 14.9 % (11.0-16.0); SCAN SMEAR FLAG 1; White Blood Count 13.2 X10*3/uL (4.8-10.8)
[2024-06-21 07:42] LABS: SLIDE REVIEW VERIFIED
[2024-06-21 08:05] LABS: Glucose, Whole Blood 155 mg/dL (60-115)
[2024-06-21] MEDS: Albuterol/Iprat 2.5/0.5MG 3 ML AMPUL.NEB INHALE ×4 (08:07→19:55)
[2024-06-21] MEDS: 0.9 % Sodium Chloride Flush 3 ML SYRINGE IVFLUSH ×3 (08:42→21:56)
[2024-06-21] MEDS: Furosemide 40 MG/4 ML VIAL IVPUSH ×2 (08:42→17:10)
[2024-06-21] MEDS: Metoprolol Tartrate 50 MG TABLET PO ×2 (08:43→21:55)
[2024-06-21] MEDS: dilTIAZem HCL CD 180 MG CAP.ER.24H PO (08:43)
[2024-06-21] MEDS: Insulin Lispro 100 UNIT/ML 3 ML VIAL SUBCUT ×3 (08:43→21:56)
[2024-06-21] MEDS: Apixaban 5 MG TABLET PO ×2 (08:43→21:56)
[2024-06-21] MEDS: Potassium Chloride Packet 20 MEQ PACKET 40 MEQ PO (08:43)
[2024-06-21 08:54] LABS: Venous Blood Gas Refer to POC result
[2024-06-21 08:56] LABS: VBG Base Excess 18.1 mmol/L; VBG HCO3 47 mmol/L (22-26); VBG pCO2 79 mmHg; VBG pH 7.38 (7.32-7.43); VBG pO2 59 mmHg
[2024-06-21 09:15] LABS: Albumin Level 3.3 g/dL (3.5-5.0); Anion Gap 11 (12-20); Blood Urea Nitrogen 57 mg/dL (9-16); Calcium 8.5 mg/dL (8.4-10.2); Carbon Dioxide 39 mmol/L (22-29); Chloride 99 mmol/L (96-108); Creatinine Clr Calc Pharmacy 37.1; Estimated Glomerular Filt Rate 51; Glucose Random 163 mg/dL (60-115); Magnesium 2.3 mg/dL (1.6-2.6); Potassium 3.6 mmol/L (3.3-5.1); Sodium 145 mmol/L (135-145)
--- NOTE | 2024-06-21 09:37 | P.PNIM_ITS ---
Subjective Subjective Date of Service: 06/21/24 Interval History: weak but overall improved Physical Exam 2 Vital Signs: Vital Signs: Last Vital Signs Temp 98.3 F 06/21/24 07:41 Pulse 69 06/21/24 08:43 Resp 16 06/21/24 08:07 BP 135/63 06/21/24 08:43 Pulse Ox 95 06/21/24 07:41 O2 Del Method Oxymask 06/21/24 07:41 O2 Flow Rate 4 06/21/24 07:41 FiO2 40 06/20/24 14:00 Oxygen Flow Rate 3 06/10/24 16:45 BMI result Body Mass Index 30.8 Const: General: no acute distress, alert and awake Eyes: Sclerae: sclerae normal EOM: EOMs intact bilaterally Neck: Neck: Yes no lymphadenopathy, Yes trachea midline and Yes supple Resp: Effort & Inspection: normal respiratory effort and no respiratory distress Auscultation: clear to auscultation bilaterally Cardio: Rate: tachycardic Rhythm: abnormal rhythm irregularly irregular Heart sounds: no gallops, no murmurs and no rubs GI: Palpation (GI): Soft to palpation and Other GI palpation findings present ( Nontender) Auscultation: normal bowel sounds Extrem: General: No clubbing, No cyanosis and Yes edema (Trace bilateral) Objective Data Active Medications Acetazolamide (Acetazolamide Sodium 500 Mg Vial) 500 mg IVPUSH Q12H [facility] Last Admin: 06/21/24 05:40 Dose: 500 mg Documented By: YOGI Albuterol/Ipratropium (Albuterol/Iprat 2.5/0.5mg 3 Ml Ampul.Neb) 3 ml INHALE RQ4H WHILE AWAKE [facility] Last Admin: 06/21/24 08:07 Dose: 3 ml Documented By: ERIC Apixaban (Apixaban 5 Mg Tablet) 5 mg PO BID [facility] Last Admin: 06/21/24 08:43 Dose: 5 mg Documented By: JATINDER Atorvastatin Calcium (Atorvastatin Calcium 20 Mg Tablet) 20 mg PO BEDTIME [facility] Last Admin: 06/20/24 20:47 Dose: 20 mg Documented By: YOGI Diltiazem HCl (Diltiazem Hcl Cd 180 Mg Cap.Er.24h) 180 mg PO DAILY [facility]; Protocol Last Admin: 06/21/24 08:43 Dose: 180 mg Documented By: JATINDER Furosemide (Furosemide 40 Mg/4 Ml Vial) 40 mg IVPUSH BID@0900,1800 [facility]; Protocol Last Admin: 06/21/24 08:42 Dose: 40 mg Documented By: JATINDER Glucose (Glucose Gel 15 Gm Gel..Gram.) 15 gm PO Q15M PRN; Protocol PRN Reason: per Hypoglycemia Standing Ord. Dextrose (D10) 250 mls @ 750 mls/hr IV Q15M PRN; Protocol PRN Reason: per Hypoglycemia Standing Ord. Insulin Human Lispro (Insulin Lispro 100 Unit/Ml 3 Ml Vial) 0 unit SUBCUT QIDACHS [facility]; Protocol Last Admin: 06/21/24 08:43 Dose: 2 unit Documented By: JATINDER Metoprolol Tartrate (Metoprolol Tartrate 50 Mg Tablet) 50 mg PO BID [facility]; Protocol Last Admin: 06/21/24 08:43 Dose: 50 mg Documented By: JATINDER Sodium Chloride (0.9 % Sodium Chloride Flush 3 Ml Syringe) 3 ml IVFLUSH QSHIFT [facility] Last Admin: 06/21/24 08:42 Dose: 3 ml Documented By: JATINDER Labs 06/21/24 06:51 06/21/24 08:45 Labs: Laboratory Results - last 24 hr 06/20/24 06/20/24 06/20/24 10:29 11:35 17:11 MCV MCH MCHC RDW Plt Count MPV Immature Gran % (Auto) Neut % (Auto) Lymph % (Auto) [place] % (Auto) Eos % (Auto) Baso % (Auto) Lymph # (Auto) [place] # (Auto) Eos # (Auto) Baso # (Auto) Abs Immat Gran (auto) Absolute Neuts (auto) Absolute Nucleated RBC Nucleated RBC % (auto) Smear Tech's Comments O2 Saturation 93.0 ABG pH at Pt Temp 7.34 L ABG pCO2 at Pt Temp 82 H* ABG pO2 at Pt Temp 73 L ABG HCO3 45 H ABG Base Excess (Actual) 15.3 VBG pH VBG pCO2 VBG pO2 VBG HCO3 VBG O2 Saturation VBG Base Excess Anion Gap Estim Creat Clear Calc Estimated GFR POC Glucose 248 H 219 H Random Glucose Calcium Phosphorus Magnesium Albumin 06/20/24 06/21/2425 21:04 06:51 07:42 MCV 97.0 MCH 27.4 MCHC 28.3 L RDW 14.9 Plt Count 164 MPV 11.9 Immature Gran % (Auto) 0.6 H Neut % (Auto) 91.1 H Lymph % (Auto) 2.6 L [place] % (Auto) 5.5 Eos % (Auto) 0.0 Baso % (Auto) 0.2 Lymph # (Auto) 0.3 L [place] # (Auto) 0.7 Eos # (Auto) 0.0 Baso # (Auto) 0.0 Abs Immat Gran (auto) 0.08 H Absolute Neuts (auto) 12.0 H Absolute Nucleated RBC 0.000 Nucleated RBC % (auto) 0.0 Smear Tech's Comments VERIFIED O2 Saturation ABG pH at Pt Temp ABG pCO2 at Pt Temp ABG pO2 at Pt Temp ABG HCO3 ABG Base Excess (Actual) VBG pH VBG pCO2 VBG pO2 VBG HCO3 VBG O2 Saturation VBG Base Excess Anion Gap Estim Creat Clear Calc Estimated GFR POC Glucose 163 H 155 H Random Glucose Calcium Phosphorus Magnesium Albumin 06/21/24 06/21/24 08:45 08:51 MCV MCH MCHC RDW Plt Count MPV Immature Gran % (Auto) Neut % (Auto) Lymph % (Auto) [place] % (Auto) Eos % (Auto) Baso % (Auto) Lymph # (Auto) [place] # (Auto) Eos # (Auto) Baso # (Auto) Abs Immat Gran (auto) Absolute Neuts (auto) Absolute Nucleated RBC Nucleated RBC % (auto) Smear Tech's Comments O2 Saturation ABG pH at Pt Temp ABG pCO2 at Pt Temp ABG pO2 at Pt Temp ABG HCO3 ABG Base Excess (Actual) VBG pH 7.38 VBG pCO2 79 VBG pO2 59 VBG HCO3 47 H VBG O2 Saturation 88.0 VBG Base Excess 18.1 Anion Gap 11 L Estim Creat Clear Calc 37.1 Estimated GFR 51 POC Glucose Random Glucose 163 H Calcium 8.5 Phosphorus 4.0 Magnesium 2.3 Albumin 3.3 L Assessment and Plan (1) Acute hypoxic respiratory failure: Status: Acute Assessment and Plan: 89F PMH persistent atrial fibrillation anticoagulated with Eliquis, heart failure recovered ejection fraction, [id number] type 2 diabetes, COPD, chronic hypoxemic respiratory failure on 2.5/3 L at baseline, history of breast cancer, history of lung cancer 2002 presented with sob, worsening hypoxia. On 06/17/2024 was upgraded to ICU for hypercapnia requiring BiPAP. Diuresed and improved, downgraded 06/20/2024 Acute hypoxemic and acute on chronic hypercapneic respiratory failure sec to acute exacerbation of heart failure recovered ejection fraction, pleural effusions,? brochitis CXR with bilateral pleural effusions and cardiomegaly. ?RLL neoplasm last echocardiogram 2018 shows EF 40-45% symptoms improved though hypoxia worsening continue diamox, lasix completed course of ceftin, prednisone pulm appreciated- Ct chest-recommended to follow up with outpatient pulm. Would advise against thoracentesis as pleural effusions appear to be chronic and related to underlying chronic congestive heart failure goal sat 89-93% persistent atrial fibrillation-RVR off diltiazem drip continue Eliquis for anticoagulation, metoprolol for rate control,adjusted diltiazem. [id number] type 2 diabetes -POC glucose, diabetic diet -Humalog on sliding scale COPD -no acute exacerbation -continue maintenance inhalers, DuoNebs p.r.n. chronic normocytic anemia -H/H baseline, above transfusion threshold DVT prophylaxis-Eliquis. Pt -generalsied weakness recommending short-term rehab Full code Healthcare proxy-daughterJoan [phone] Patient requires inpatient stay: Ongoing hypoxia Quality Stroke Does the patient have a stroke diagnosis?: No VTE Prior VTE?: No VTE Risk Level:: Medical - moderate - high VTE Device Contraindication: N/A - Device Ordered VTE Drug Contraindication: N/A - Med Ordered
[2024-06-21 11:26] LABS: Glucose, Whole Blood 238 mg/dL (60-115)
--- NOTE | 2024-06-21 11:38 | MHC.SLORD ---
Speech Language Pathology Order Status: Pt on BiPAP this morning, no PO trials given. Per RN, patient ate most of her food today and does great. She continues on a chopped/advanced diet (NDD3) and thin liquids. CAMPUS MONITOR to f/u tomorrow.
--- NOTE | 2024-06-21 14:00 | MHC.CM.PN ---
Addendum entered by Carmel Tellez 06/22/24 13:54: Second IMM given 06/22. Original Note: This CM met with pt to discuss discharge plans, PT is recommending STR. Bed offers received from [facility] and [facility] [place]. Pt and her daughter/HCP Joan have accepted bed offer from [facility], [facility] will initiate insurance auth.
[2024-06-21 16:51] LABS: Glucose, Whole Blood 113 mg/dL (60-115)
[2024-06-21 21:31] LABS: Glucose, Whole Blood 212 mg/dL (60-115)
[2024-06-21] MEDS: Atorvastatin Calcium 20 MG TABLET PO (21:53)
[2024-06-22 03:11] VITALS: BP 136/71; PULSE 69; RESP 16; TEMP 36.1; O2SAT 96
[2024-06-22] MEDS: acetaZOLAMIDE sodium 500 MG VIAL IVPUSH ×2 (05:41→17:35)
[2024-06-22] MEDS: Albuterol/Iprat 2.5/0.5MG 3 ML AMPUL.NEB INHALE (07:23)
[2024-06-22 07:24] VITALS: PULSE 90; RESP 18; O2SAT 93
[2024-06-22 07:47] VITALS: BP 122/61; PULSE 88; RESP 20; TEMP 37; O2SAT 94
[2024-06-22 08:21] LABS: Glucose, Whole Blood 106 mg/dL (60-115)
[2024-06-22] MEDS: Furosemide 40 MG/4 ML VIAL IVPUSH ×2 (08:24→17:35)
[2024-06-22] MEDS: Apixaban 5 MG TABLET PO (08:25)
[2024-06-22] MEDS: dilTIAZem HCL CD 180 MG CAP.ER.24H PO (08:25)
[2024-06-22] MEDS: Metoprolol Tartrate 50 MG TABLET PO (08:25)
[2024-06-22 08:38] LABS: Hematocrit 43.1 % (37.0-47.0); Hemoglobin 12.2 g/dl (12.0-16.0); Mean Corpuscular HGB Conc 28.3 g/dl (31.0-35.0); Mean Corpuscular Hemoglobin 27.4 pg (27.0-33.0); Mean Corpuscular Volume 96.6 fL (80.0-98.0); Mean Platelet Volume 12.5 fL (9.4-12.3); Platelet Count 156 X10*3/uL (160-400); Red Blood Count 4.46 X10*6/uL (4.20-5.50); Red Cell Distribution Width 14.9 % (11.0-16.0); White Blood Count 16.5 X10*3/uL (4.8-10.8)
[2024-06-22 09:04] LABS: Blood Urea Nitrogen 47 mg/dL (9-16); Calcium 8.7 mg/dL (8.4-10.2); Creatinine Clr Calc Pharmacy 42.6; Estimated Glomerular Filt Rate 60; Glucose Random 114 mg/dL (60-115)
[2024-06-22 09:15] LABS: Anion Gap 8 (12-20); Carbon Dioxide 42 mmol/L (22-29); Chloride 98 mmol/L (96-108); Potassium 3.3 mmol/L (3.3-5.1); Sodium 145 mmol/L (135-145)
[2024-06-22] MEDS: 0.9 % Sodium Chloride Flush 3 ML SYRINGE IVFLUSH ×2 (09:25→17:34)
[2024-06-22 11:26] LABS: Glucose, Whole Blood 203 mg/dL (60-115)
[2024-06-22 11:39] VITALS: BP 117/56; PULSE 80; RESP 20; TEMP 37.3; O2SAT 94
--- NOTE | 2024-06-22 11:44 | P.PNIM_ITS ---
Subjective Subjective Date of Service: 06/22/24 Interval History: feeling better Physical Exam 2 Vital Signs: Vital Signs: Last Vital Signs Temp 99.2 F 06/22/24 11:39 Pulse 80 06/22/24 11:39 Resp 20 06/22/24 11:39 BP 117/56 L 06/22/24 11:39 Pulse Ox 94 06/22/24 11:39 O2 Del Method Nasal Cannula 06/22/24 11:39 O2 Flow Rate 3 06/22/24 11:39 FiO2 40 06/20/24 14:00 Oxygen Flow Rate 3 06/10/24 16:45 BMI result Body Mass Index 30.8 Const: General: no acute distress, alert and awake Eyes: Sclerae: sclerae normal EOM: EOMs intact bilaterally Neck: Neck: Yes no lymphadenopathy, Yes trachea midline and Yes supple Resp: Effort & Inspection: normal respiratory effort and no respiratory distress Auscultation: clear to auscultation bilaterally Cardio: Rate: tachycardic Rhythm: abnormal rhythm irregularly irregular Heart sounds: no gallops, no murmurs and no rubs GI: Palpation (GI): Soft to palpation and Other GI palpation findings present ( Nontender) Auscultation: normal bowel sounds Extrem: General: No clubbing, No cyanosis and Yes edema (Trace bilateral) Objective Data Active Medications Acetazolamide (Acetazolamide Sodium 500 Mg Vial) 500 mg IVPUSH Q12H [facility] Last Admin: 06/22/24 05:41 Dose: 500 mg Documented By: DEISY Albuterol/Ipratropium (Albuterol/Iprat 2.5/0.5mg 3 Ml Ampul.Neb) 3 ml INHALE RQ4H WHILE AWAKE [facility] Last Admin: 06/22/24 11:26 Dose: Not Given Documented By: ERIC Non-Admin Reason: Patient Refused Apixaban (Apixaban 5 Mg Tablet) 5 mg PO BID [facility] Last Admin: 06/22/24 08:25 Dose: 5 mg Documented By: YAW Atorvastatin Calcium (Atorvastatin Calcium 20 Mg Tablet) 20 mg PO BEDTIME [facility] Last Admin: 06/21/24 21:53 Dose: 20 mg Documented By: DEISY Diltiazem HCl (Diltiazem Hcl Cd 180 Mg Cap.Er.24h) 180 mg PO DAILY [facility]; Protocol Last Admin: 06/22/24 08:25 Dose: 180 mg Documented By: YAW Furosemide (Furosemide 40 Mg/4 Ml Vial) 40 mg IVPUSH BID@0900,1800 [facility]; Protocol Last Admin: 06/22/24 08:24 Dose: 40 mg Documented By: YAW Glucose (Glucose Gel 15 Gm Gel..Gram.) 15 gm PO Q15M PRN; Protocol PRN Reason: per Hypoglycemia Standing Ord. Dextrose (D10) 250 mls @ 750 mls/hr IV Q15M PRN; Protocol PRN Reason: per Hypoglycemia Standing Ord. Insulin Human Lispro (Insulin Lispro 100 Unit/Ml 3 Ml Vial) 0 unit SUBCUT QIDACHS [facility]; Protocol Last Admin: 06/22/24 10:25 Dose: Not Given Documented By: YAW Non-Admin Reason: No Insulin Coverage Comments: random glucose 114 Metoprolol Tartrate (Metoprolol Tartrate 50 Mg Tablet) 50 mg PO BID [facility]; Protocol Last Admin: 06/22/24 08:25 Dose: 50 mg Documented By: YAW Sodium Chloride (0.9 % Sodium Chloride Flush 3 Ml Syringe) 3 ml IVFLUSH QSHIFT [facility] Last Admin: 06/21/24 21:56 Dose: 3 ml Documented By: ADAMBAI Labs 06/22/24 07:54 06/22/24 07:54 Labs: Laboratory Results - last 24 hr 06/21/24 06/21/24 06/22/24 16:22 21:06 07:42 MCV MCH MCHC RDW Plt Count MPV Absolute Nucleated RBC Nucleated RBC % (auto) Anion Gap Estim Creat Clear Calc Estimated GFR POC Glucose 113 212 H 106 Random Glucose Calcium 06/22/24 06/22/24 07:54 11:14 MCV 96.6 MCH 27.4 MCHC 28.3 L RDW 14.9 Plt Count 156 L MPV 12.5 H Absolute Nucleated RBC 0.000 Nucleated RBC % (auto) 0.0 Anion Gap 8 L Estim Creat Clear Calc 42.6 Estimated GFR 60 POC Glucose 203 H Random Glucose 114 Calcium 8.7 Assessment and Plan (1) Acute hypoxic respiratory failure: Status: Acute Assessment and Plan: 89F PMH persistent atrial fibrillation anticoagulated with Eliquis, heart failure recovered ejection fraction, [id number] type 2 diabetes, COPD, chronic hypoxemic respiratory failure on 2.5/3 L at baseline, history of breast cancer, history of lung cancer 2001 presented with sob, worsening hypoxia. On 06/17/2024 was upgraded to ICU for hypercapnia requiring BiPAP. Diuresed and improved, downgraded 06/20/2024 Acute hypoxemic and acute on chronic hypercapneic respiratory failure sec to acute exacerbation of heart failure recovered ejection fraction, pleural effusions,? brochitis CXR with bilateral pleural effusions and cardiomegaly. ?RLL neoplasm last echocardiogram 2018 shows EF 40-45% symptoms improved though hypoxia worsening continue diamox, lasix completed course of ceftin, prednisone pulm appreciated- Ct chest-recommended to follow up with outpatient pulm. Would advise against thoracentesis as pleural effusions appear to be chronic and related to underlying chronic congestive heart failure goal sat 89-93% persistent atrial fibrillation-RVR off diltiazem drip continue Eliquis for anticoagulation, metoprolol for rate control,adjusted diltiazem. [id number] type 2 diabetes -POC glucose, diabetic diet -Humalog on sliding scale COPD -no acute exacerbation -continue maintenance inhalers, DuoNebs p.r.n. chronic normocytic anemia -H/H baseline, above transfusion threshold DVT prophylaxis-Eliquis. Pt -generalsied weakness recommending short-term rehab Full code Healthcare proxy-daughterJoan [phone] Patient requires inpatient stay: safe dispo Quality Stroke Does the patient have a stroke diagnosis?: No VTE Prior VTE?: No VTE Risk Level:: Medical - moderate - high VTE Device Contraindication: N/A - Device Ordered VTE Drug Contraindication: N/A - Med Ordered
--- NOTE | 2024-06-22 11:47 | P.DS_ITS ---
DS: Providers Provider Date of Service: 06/22/24 Date of admission: 06/11/24 06:08 Date of discharge: 06/22/24 Primary care physician: Radha Ramsey MD Consults: 06/11/24 14:55 Consult to Cardiology Routine Consulting Provider: [facility] [facility] Reason for consultation: chf , afib rvr Has provider been notified: No 06/12/24 12:32 Consult to Pulmonology Routine Consulting Provider: [facility] [place] Reason for consultation: pneumonia /copd/pleural effusion /lung lesion Has provider been notified: No DS: Diagnosis Discharge Diagnosis (1) Acute hypoxic respiratory failure: Status: Acute DS: Summary Hospital Course Hospital Course: from initial hpi: Zenia Horta is 89 years old woman with past medical history significant for atrial fibrillation on Eliquis, hyperlipidemia, TIA, COPD on home O2 (2.5 L/min), breast cancer (s/p lumpectomy and radiation), CAD, 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 She denied chest pain. She stated that she tried nebs at home + increased O2 flow to 3L/min without improvement of symptoms. She did not report any acute gastrointestinal genitourinary symptoms. In the ED, she was found to have tachycardia consistent with rapid AFib and tachypnea. There is no fever. She required dry with rescue BiPAP x2 as her O2 sats persisted in the mid 80s. Blood workup showed no leukocytosis. Hemoglobin is 11.2 which is at baseline and platelets are normal. Initial venous gas showed pH is 7.34 and CO2 of 84. After 1st trial with BiPAP the pH increased to 7.66 and pCO2 234. Chest CT scan showed right lower lobe pulmonary lesion suspicious for neoplasm, cardiomegaly, bilateral pleural effusion with underlying consolidation and pulmonary bullous disease and right upper lobe scarring. Venous ultrasound of the lower extremities showed no DVT. Viral testing for COVID-19, influenza and RSV is negative. ED tx: Solu-Medrol 125 mg IV, Lasix 40 mg IV x2, diltiazem 30 mg IV (total), albuterol, metoprolol 5 mg IV, Xopenex 5 mg inhaled hospital course: Patient was admitted for acute hypoxic and acute on chronic hypercapnic respiratory failure secondary to acute exacerbation of CHF with recovered ejection fraction, pleural effusions, possible bronchitis. Chest x-ray with bilateral pleural effusions and cardiomegaly there was a question of right lower lobe neoplasm which should be followed up with Pulmonary as outpatient. Patient received IV diuresis, steroids, empiric antibiotics. Respiratory status hypoxia and hypercapnia continued to worsen on 06/17/2024 was upgraded to the ICU for BiPAP. Received more diuresis and improved and downgraded 06/20/2024. Patient now weaned down to 2 L and much more comfortable. On discharge we will continue Lasix 40 mg daily for maintenance. Completed antibiotics and steroid course. She did have a sleep study prior to discharge and will require noninvasive positive pressure ventilation for sleep. For persistent AFib with rapid ventricular response initially required diltiazem drip, now controlled on metoprolol and oral diltiazem, was continued on Eliquis. For diabetes received insulin sliding scale, normally not on meds at home. For COPD was continued on nebs as needed, completed steroid course as mentioned. Due to weakness patient was seen by physical therapy recommended short-term rehab to which patient will be discharged. She was expected require less than 30 days. Time Attestation Discharge Coordination Time (in mins): 37 Quality: Safe Use of Opioids Does Pt have an Active Cancer Diagnosis on the Problem List?: No Quality: Stroke Does the patient have a stroke diagnosis?: No Physical Exam Vital Signs: Vital Signs: Last Vital Signs Temp 99.2 F 06/22/24 11:39 Pulse 80 06/22/24 11:39 Resp 20 06/22/24 11:39 BP 117/56 L 06/22/24 11:39 Pulse Ox 94 06/22/24 11:39 O2 Del Method Nasal Cannula 06/22/24 11:39 O2 Flow Rate 3 06/22/24 11:39 FiO2 40 06/20/24 14:00 Oxygen Flow Rate 3 06/10/24 16:45 BMI result Body Mass Index 30.8 Const: General: no acute distress, alert and awake Eyes: Sclerae: sclerae normal EOM: EOMs intact bilaterally Neck: Neck: Yes no lymphadenopathy, Yes trachea midline and Yes supple Resp: Effort & Inspection: normal respiratory effort and no respiratory distress Auscultation: clear to auscultation bilaterally Cardio: Rate: tachycardic Rhythm: abnormal rhythm irregularly irregular Heart sounds: no gallops, no murmurs and no rubs GI: Palpation (GI): Soft to palpation and Other GI palpation findings present ( Nontender) Auscultation: normal bowel sounds Extrem: General: No clubbing, No cyanosis and Yes edema (Trace bilateral) DS: Data Data Completed and Pending Completed studies during hospitalization [Text1]: Procedures Drainage of Right Pleural Cavity, Percutaneous Approach (01/08/24) Labs on day of discharge: Laboratory Results - last 24 hr 06/21/24 06/21/24 06/22/24 16:22 21:06 07:42 WBC RBC Hgb Hct MCV MCH MCHC RDW Plt Count MPV Absolute Nucleated RBC Nucleated RBC % (auto) Sodium Potassium Chloride Carbon Dioxide Anion Gap BUN Creatinine Estim Creat Clear Calc Estimated GFR POC Glucose 113 212 H 106 Random Glucose Calcium 06/22/24 06/22/24 07:54 11:14 WBC 16.5 H RBC 4.46 Hgb 12.2 Hct 43.1 MCV 96.6 MCH 27.4 MCHC 28.3 L RDW 14.9 Plt Count 156 L MPV 12.5 H Absolute Nucleated RBC 0.000 Nucleated RBC % (auto) 0.0 Sodium 145 Potassium 3.3 Chloride 98 Carbon Dioxide 42 H* Anion Gap 8 L BUN 47 H Creatinine 0.89 Estim Creat Clear Calc 42.6 Estimated GFR 60 POC Glucose 203 H Random Glucose 114 Calcium 8.7 Discharge Plan Discharge Anticipated Discharge Date/Time: 06/22/24 11:46 Patient Disposition: Xfer SNF Discharge Diagnosis: chf, copd, pna Referrals: Po,Radha Edwards MD [Primary Care Provider] - 1 Week Discharge Medications: Continued potassium chloride 20 mEq tablet,ER particles/crystals 20 meq PO Q2D Qty: 45 3RF Eliquis 5 mg tablet 5 mg PO BID 90 Days Qty: 180 3RF albuterol sulfate 90 mcg/actuation HFA aerosol inhaler 2 puff inhalation Q6H PRN (Reason: for wheezing) Qty: 8.5 0RF diltiazem HCl 180 mg capsule,extended release 24hr 180 mg PO DAILY Qty: 90 2RF (DME) Nasal Mask See Rx Instructions .Route .MEDSUPPLY Qty: 1 0RF Rx Instructions: As directed metoprolol tartrate 50 mg tablet 50 mg PO BID Qty: 180 3RF furosemide 40 mg tablet 40 mg PO DAILY 90 Days Qty: 90 3RF cyanocobalamin (vitamin B-12) [Vitamin B-12] 1,000 mcg Tablet 1,000 mcg PO DAILY ascorbic acid (vitamin C) [Vitamin C] 500 mg Tablet 500 mg PO BID cholecalciferol (vitamin D3) [Vitamin D3] 25 mcg (1,000 unit) Capsule 25 mcg PO DAILY fluticasone propionate 50 mcg/actuation spray,suspension 1 spray intranasal DAILY PRN (Reason: Allergy Symptoms) Sore Throat (benzocaine-menth) 15-3.6 mg Lozenge 1 misael mucous membrane Q2H PRN (Reason: Sore Throat) Qty: 18 0RF ipratropium-albuterol 0.5 mg-3 mg(2.5 mg base)/3 mL Solution For Nebulization 3 ml inhalation Q6H PRN (Reason: Shortness Of Breath/Wheezing) Qty: 180 0RF Trelegy Ellipta 100-62.5-25 mcg blister with device 1 ea inhalation DAILY atorvastatin 20 mg tablet 20 mg PO BEDTIME (DME) Aerochamber MV Spacer See Rx Instructions .Route Qty: 1 0RF Rx Instructions: As directed Discontinued isosorbide mononitrate 30 mg tablet extended release 24 hr 30 mg PO DAILY 90 Days Qty: 90 3RF Diet: Advance to usual diet Activity on Discharge: As tolerated Stand Alone Forms: Patient Portal Discharge page Print Language: Venezuelan Care Plan Goals: recovery Health Concerns: copd, chf, leydi Plan of Treatment: nippv at night Assessment: see above
--- NOTE | 2024-06-22 13:24 | MHC.SLORD ---
Speech Language Pathology Order Status: Pt not seen for treatment, d/c to SNF today. It is strongly recc that PROCESSING MGR at SNF continue to monitor dysphagia. D/c PROCESSING MGR plan updated.
[2024-06-22] MEDS: Insulin Lispro 100 UNIT/ML 3 ML VIAL SUBCUT (13:56)
--- NOTE | 2024-06-22 15:38 | MHC.CM.PN ---
Second IMM given 06/22. Insurance auth received for pt to go to STR at [facility], she will transport there via BLS/[facility] today. Pt updated and in agreement with plan. Per her request pts daughter/HCP Joan was called and notfied.
[2024-06-22 15:39] VITALS: BP 119/54; PULSE 86; RESP 20; TEMP 37.4; O2SAT 92
[2024-06-22 16:36] LABS: Glucose, Whole Blood 90 mg/dL (60-115)
--- NOTE | 2024-06-22 19:01 | PC.NURSE ---
made 2 phone calls to receiving facility--[facility], was unable to speak to a nurse to give report.
--- NOTE | 2024-06-27 20:55 | PM.DS ---
DS: Providers Provider Date of Service: 06/22/24 Date of admission: 06/11/24 06:08 Date of discharge: 06/22/24 Primary care physician: Radha Ramsey MD Consults: 06/11/24 14:55 Consult to Cardiology Routine Consulting [place] [facility] [place] [facility] Reason for consultation: chf , afib rvr Has provider been notified: No 06/12/24 12:32 Consult to Pulmonology Routine Consulting [place] [facility] [place] [facility] Reason for consultation: pneumonia /copd/pleural effusion /lung lesion Has provider been notified: No DS: Diagnosis Discharge Diagnosis (1) Acute hypoxic respiratory failure: Status: Acute DS: Summary Hospital Course Hospital Course: from initial hpi: Zenia Horta is 89 years old woman with past medical history significant for atrial fibrillation on Eliquis, hyperlipidemia, TIA, COPD on home O2 (2.5 L/min), breast cancer (s/p lumpectomy and radiation), CAD, 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 She denied chest pain. She stated that she tried nebs at home + increased O2 flow to 3L/min without improvement of symptoms. She did not report any acute gastrointestinal genitourinary symptoms. In the ED, she was found to have tachycardia consistent with rapid AFib and tachypnea. There is no fever. She required dry with rescue BiPAP x2 as her O2 sats persisted in the mid 80s. Blood workup showed no leukocytosis. Hemoglobin is 11.2 which is at baseline and platelets are normal. Initial venous gas showed pH is 7.34 and CO2 of 84. After 1st trial with BiPAP the pH increased to 7.66 and pCO2 234. Chest CT scan showed right lower lobe pulmonary lesion suspicious for neoplasm, cardiomegaly, bilateral pleural effusion with underlying consolidation and pulmonary bullous disease and right upper lobe scarring. Venous ultrasound of the lower extremities showed no DVT. Viral testing for COVID-19, influenza and RSV is negative. ED tx: Solu-Medrol 125 mg IV, Lasix 40 mg IV x2, diltiazem 30 mg IV (total), albuterol, metoprolol 5 mg IV, Xopenex 5 mg inhaled hospital course: Patient was admitted for acute hypoxic and acute on chronic hypercapnic respiratory failure secondary to acute exacerbation of CHF with recovered ejection fraction, pleural effusions, possible bronchitis. Chest x-ray with bilateral pleural effusions and cardiomegaly there was a question of right lower lobe neoplasm which should be followed up with Pulmonary as outpatient. Patient received IV diuresis, steroids, empiric antibiotics. Respiratory status hypoxia and hypercapnia continued to worsen on 06/17/2024 was upgraded to the ICU for BiPAP. Received more diuresis and improved and downgraded 06/20/2024. Patient now weaned down to 2 L and much more comfortable. On discharge we will continue Lasix 40 mg daily for maintenance. Completed antibiotics and steroid course. She did have a sleep study prior to discharge and will require noninvasive positive pressure ventilation for sleep. For persistent AFib with rapid ventricular response initially required diltiazem drip, now controlled on metoprolol and oral diltiazem, was continued on Eliquis. For diabetes received insulin sliding scale, normally not on meds at home. For COPD was continued on nebs as needed, completed steroid course as mentioned. Due to weakness patient was seen by physical therapy recommended short-term rehab to which patient will be discharged. She was expected require less than 30 days. Time Attestation Discharge Coordination Time (in mins): 33 Quality: Safe Use of Opioids Does Pt have an Active Cancer Diagnosis on the Problem List?: No Quality: Stroke Does the patient have a stroke diagnosis?: No Physical Exam Vital Signs: Vital Signs: Last Vital Signs Temp 99.4 F 06/22/24 15:39 Pulse 86 06/22/24 15:39 Resp 20 06/22/24 15:39 BP 119/54 L 06/22/24 15:39 Pulse Ox 92 06/22/24 15:39 O2 Del Method Oxymask 06/22/24 15:39 O2 Flow Rate 2 06/22/24 15:39 FiO2 40 06/20/24 14:00 Oxygen Flow Rate 3 06/10/24 16:45 BMI result Body Mass Index 30.8 DS: Data Data Completed and Pending Completed studies during hospitalization [Text1]: Procedures Drainage of Right Pleural Cavity, Percutaneous Approach (01/08/24) Discharge Plan Discharge Anticipated Discharge Date/Time: 06/22/24 11:46 Patient Disposition: Xfer SNF Discharge Diagnosis: chf, copd, pna Referrals: Nore[facility] Kinta [Outside] - 1 Week Po,Radha Edwards MD [Primary Care Provider] - 1 Week Discharge Medications: Continued Eliquis 5 mg tablet 5 mg PO BID 90 Days Qty: 180 3RF albuterol sulfate 90 mcg/actuation HFA aerosol inhaler 2 puff inhalation Q6H PRN (Reason: for wheezing) Qty: 8.5 0RF diltiazem HCl 180 mg capsule,extended release 24hr 180 mg PO DAILY Qty: 90 2RF (DME) Nasal Mask See Rx Instructions .Route .MEDSUPPLY Qty: 1 0RF Rx Instructions: As directed metoprolol tartrate 50 mg tablet 50 mg PO BID Qty: 180 3RF furosemide 40 mg tablet 40 mg PO DAILY 90 Days Qty: 90 3RF cyanocobalamin (vitamin B-12) [Vitamin B-12] 1,000 mcg Tablet 1,000 mcg PO DAILY ascorbic acid (vitamin C) [Vitamin C] 500 mg Tablet 500 mg PO BID cholecalciferol (vitamin D3) [Vitamin D3] 25 mcg (1,000 unit) Capsule 25 mcg PO DAILY fluticasone propionate 50 mcg/actuation spray,suspension 1 spray intranasal DAILY PRN (Reason: Allergy Symptoms) ipratropium-albuterol 0.5 mg-3 mg(2.5 mg base)/3 mL Solution For Nebulization 3 ml inhalation Q6H PRN (Reason: Shortness Of Breath/Wheezing) Qty: 180 0RF Trelegy Ellipta 100-62.5-25 mcg blister with device 1 ea inhalation DAILY atorvastatin 20 mg tablet 20 mg PO BEDTIME (DME) Aerochamber MV Spacer See Rx Instructions .Route Qty: 1 0RF Rx Instructions: As directed Discontinued isosorbide mononitrate 30 mg tablet extended release 24 hr 30 mg PO DAILY 90 Days Qty: 90 3RF No Action potassium chloride 20 mEq Packet 20 meq PO Q48H ondansetron HCl [Zofran] 4 mg Tablet 4 mg PO Q6H PRN (Reason: Nausea And Vomiting) Discharge Orders: Discharge Order (Routine); Ordered 06/22/24 Ordered By: Pa Whalen Diet: Advance to usual diet Activity on Discharge: As tolerated Stand Alone Forms: Patient Portal Discharge page Print Language: Maltese Care Plan Goals: recovery Health Concerns: copd, chf, leydi Plan of Treatment: nippv at night Assessment: see above Discharge Date/Time: 06/22/24 18:55
== END 2024-06-22 18:55 | disposition skilled nursing facility (03) | DRG 291 ==
LOC: HO.ED 20:40 → HO.EDOVER 06-11 06:12 → HO.IMC 06-11 15:56 → HO.ICU 06-17 16:47 → HO.IMC 06-20 16:52
PROVIDERS: Internal Medicine; Internal Medicine Critical Care Medicine; Internal Medicine Pulmonary Disease; Physician Assistant; Registered Nurse Community Health; Admitting Provider Internal Medicine; Emergency Provider Emergency Medicine; PCP Internal Medicine; Visit Provider Internal Medicine
DX: I11.0 Hypertensive heart disease with heart failure (principal); I50.23 Acute on chronic systolic (congestive) heart failure; J96.21 Acute and chronic respiratory failure with hypoxia; J96.22 Acute and chronic respiratory failure with hypercapnia; I48.19 Other persistent atrial fibrillation; E11.9 Type 2 diabetes mellitus without complications; I25.10 Atherosclerotic heart disease of native coronary artery without angina pectoris; J43.9 Emphysema, unspecified; I35.0 Nonrheumatic aortic (valve) stenosis; E78.5 Hyperlipidemia, unspecified; D64.9 Anemia, unspecified; Z90.2 Acquired absence of lung [part of]; Z85.3 Personal history of malignant neoplasm of breast; Z20.822 Contact with and (suspected) exposure to COVID-19; Z85.118 Personal history of other malignant neoplasm of bronchus and lung; Z99.81 Dependence on supplemental oxygen; Z87.891 Personal history of nicotine dependence; Z79.01 Long term (current) use of anticoagulants; Z79.899 Other long term (current) drug therapy
CPT/HCPCS: 0241U; 36415; 36600; 71045; 71250; 80048; 80053; 82040; 82803; 82947; 83036; 83605; 83735; 83880; 84100; 85025; 85027; 87040; 92526; 92610; 93005; 93970; 94640; 94660; 97110; 97116; 97162; 97530; 99285; C1758; J0456; J0696; J1120; J1940; J2270; J2919

== ENCOUNTER → 2024-06-10 16:48 | Outpatient (BNV) | payer MEDICARE, MEDICAID, SELFPAY | PROVIDERS: Admitting Provider Internal Medicine; Emergency Provider Emergency Medicine; PCP Internal Medicine; Visit Provider Internal Medicine | DX: R06.02 Shortness of breath (principal) | CPT/HCPCS: 93010 ==

== ENCOUNTER → 2024-06-10 16:55 | Outpatient (BNV) | payer MEDICARE, MEDICAID, SELFPAY | PROVIDERS: PCP Internal Medicine; Visit Provider Radiology Diagnostic Radiology | DX: R06.02 Shortness of breath (principal); M79.661 Pain in right lower leg; M79.662 Pain in left lower leg | CPT/HCPCS: 71045; 93970 ==

== ENCOUNTER → 2024-06-11 01:48 | Outpatient (BNV) | payer MEDICARE, MEDICAID, SELFPAY | PROVIDERS: Emergency Provider Emergency Medicine; PCP Internal Medicine; Visit Provider Specialist | DX: R06.02 Shortness of breath (principal) | CPT/HCPCS: 71250 ==

== ENCOUNTER 2024-06-11 06:08 | Outpatient (BNV) | payer MEDICARE, SELFPAY | END 2024-06-16 09:45 | PROVIDERS: Admitting Provider Internal Medicine; Emergency Provider Emergency Medicine; PCP Internal Medicine; Visit Provider Radiology Diagnostic Radiology | DX: J96.01 Acute respiratory failure with hypoxia (principal) | CPT/HCPCS: 71045 ==

== ENCOUNTER → 2024-06-11 06:08 | Outpatient (BNV) | payer MEDICARE, MEDICAID, SELFPAY | PROVIDERS: Admitting Provider Internal Medicine; Emergency Provider Emergency Medicine; PCP Internal Medicine; Visit Provider Internal Medicine | DX: J96.01 Acute respiratory failure with hypoxia (principal); J90 Pleural effusion, not elsewhere classified | CPT/HCPCS: 99223; 99232; 99499 ==

== ENCOUNTER → 2024-06-11 06:08 | Outpatient (BNV) | payer MEDICARE, MEDICAID, SELFPAY | PROVIDERS: Admitting Provider Internal Medicine; Emergency Provider Emergency Medicine; PCP Internal Medicine; Visit Provider Internal Medicine | DX: J96.01 Acute respiratory failure with hypoxia (principal); I48.91 Unspecified atrial fibrillation | CPT/HCPCS: 99223 ==

== ENCOUNTER → 2024-06-11 06:08 | Outpatient (BNV) | payer MEDICARE, MEDICAID, SELFPAY | PROVIDERS: Admitting Provider Internal Medicine; Emergency Provider Emergency Medicine; PCP Internal Medicine; Visit Provider Internal Medicine Pulmonary Disease | DX: J96.21 Acute and chronic respiratory failure with hypoxia (principal); I50.42 Chronic combined systolic (congestive) and diastolic (congestive) heart failure; J43.9 Emphysema, unspecified | CPT/HCPCS: 99222 ==

== ENCOUNTER 2024-06-24 12:45 | Inpatient (IN) | payer MEDICARE, OTHER, SELFPAY ==
[2024-06-24] VITALS (10 sets, daily range): BP systolic 106–140; BP diastolic 40–66; PULSE 84–97; RESP 15–23; TEMP 36.8–37.9; O2SAT 75–97; BMI 27.4
--- NOTE | ~2024-06-24 | XR_ITS ---
EXAMINATION: XR CHEST 1 VIEW HISTORY: SOB COMPARISON: Comparison is made with the prior examination dated 06/16/2024. FINDINGS: A single AP portable view of the chest performed at 1:40 PM is submitted. In seen is prominence of the pulmonary vasculature consistent with congestion. Airspace opacity in the right midlung zone and at the right lung base may represent pulmonary edema or pneumonia. There is no pneumothorax. The heart remains enlarged. The aorta is calcified. There is degenerative disc disease of the spine. XR/XR chest 1V IMPRESSION: Cardiomegaly and pulmonary vascular congestion. Airspace opacities in the right mid to lower lung zone may represent pulmonary edema or pneumonia. Electronically signed by: Navin Lassiter MD 06/24/2024 02:12 PM [facility]
--- NOTE | 2024-06-24 12:57 | ED_ITS ---
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 Patient was discharged from our facility to [facility] 2 days ago. She states that she has felt generally unwell since arriving there. She reports increasing shortness of breath. She states that the facility told her that she had a virus however she can not recall what she was diagnosed with. She is currently on steroids. She is not currently on antibiotics. She was noted to be 70% on room air today, prompting the facility to call EMS. On arrival, patient placed on 6L OxyMask satting 95%. She denies chest pain. Denies hx of DVT. She was recently admitted to our hospital for 10 days for acute on chronic respiratory failure, CHF exacerbation and b/l pleural effusions in the setting of COPD. Related Data Home Medications ?Medication ?Instructions ?Recorded ?Confirmed ascorbic acid (vitamin C) 500 mg 500 mg PO BID 01/08/24 06/24/24 tablet (Vitamin C) cholecalciferol (vitamin D3) 25 25 mcg PO DAILY 01/08/24 06/24/24 mcg (1,000 unit) capsule (Vitamin D3) cyanocobalamin (vitamin B-12) 1,000 mcg PO DAILY 01/08/24 06/24/24 1,000 mcg tablet (Vitamin B-12) fluticasone propionate 50 1 spray intranasal DAILY PRN 01/08/24 06/24/24 mcg/actuation nasal Allergy Symptoms spray,suspension atorvastatin 20 mg tablet 20 mg PO BEDTIME 06/11/24 06/24/24 fluticasone fur. 100 mcg-umeclid 1 ea inhalation DAILY 06/11/24 06/24/24 62.5 mcg-vilant 25 mcg inhalat.powder (Trelegy Ellipta) ondansetron HCl 4 mg tablet 4 mg PO Q6H PRN Nausea And Vomiting 06/24/24 06/24/24 potassium chloride 20 mEq oral 20 meq PO Q48H 06/24/24 06/24/24 packet Previous Rx's ?Medication ?Instructions ?Recorded apixaban 5 mg tablet (Eliquis) 5 mg PO BID 90 days #180 tabs 09/23/23 inhalational spacing device #1 ea 11/05/23 (Aerochamber MV spacer) albuterol sulfate 90 mcg/actuation 2 puff inhalation Q6H PRN for 11/27/23 aerosol inhaler wheezing #8.5 ea ipratropium 0.5 mg-albuterol 3 mg 3 ml inhalation Q6H PRN Shortness 01/15/24 (2.5 mg base)/3 mL nebulization Of Breath/Wheezing #180 mL soln diltiazem HCl 180 mg 180 mg PO DAILY #90 caps 02/11/24 capsule,extended release 24 hr Nasal Mask #1 ea 04/05/24 metoprolol tartrate 50 mg tablet 50 mg PO BID #180 tabs 05/27/24 furosemide 40 mg tablet 40 mg PO DAILY 90 days #90 tabs 05/29/24 Allergies Allergy/AdvReac Type Severity Reaction Status Date / Time ADONIS Inhibitors Allergy Severe ANGIOEDEMA Verified 06/24/24 12:59 [Adonis Inhibitors] Sulfa (Sulfonamide Allergy Intermediate CHILLS Verified 06/24/24 12:59 Antibiotics) [Sulfa (Sulfonamides)] Review of Systems 2 Review of Systems: Constitutional: No fever, chills, fatigue, night sweats, weight changes ENT/Mouth: No ear pain, hearing loss, nasal congestion, sinus pain, rhinorrhea, sore throat Eyes: No eye pain, swelling, redness, vision changes, discharge Cardio: No chest pain, palpitations, ORDAZ, orthopnea, peripheral edema Pulm: No wheezing, dyspnea, hemoptysis, +SOB, +productive cough GI: No nausea, vomiting, hematemesis, abdominal pain, diarrhea, constipation, hematochezia, melena : No irregular bleeding, dysuria, frequency, urgency, hesitancy, hematuria, flank pain, urinary flow changes, urinary incontinence or retention MSK: No back pain, neck pain, joint pain, myalgias Skin: No lesions, rashes Neuro: No weakness, numbness, paresthesias, LOC, dizziness, headache Psych: No anxiety/panic, depression, SI/HI, AH/VH All other systems reviewed and are negative. [facility] Past Medical History Attestation statement: The following information was validated with the patient. Source: old records reviewed and nursing notes reviewed Medical History Pleural effusion Atrial fibrillation History of cancer of upper lobe bronchus or lung Age-related osteoporosis without current pathological fracture History of right breast cancer Mesenteric ischemia Diverticular disease Congestive heart failure Degenerative disc disease Coronary artery disease Obesity (BMI 30-39.9) Peripheral vascular disease Hypercholesterolemia TIA (transient ischemic attack) Anemia Breast cancer Small cell lung cancer, right lower lobe HTN (hypertension) COPD (chronic obstructive pulmonary disease) Surgical History History of lumpectomy of right breast H/O resection of small bowel Family History Family History Father Heart disease Mother Heart disease Brother Multiple myeloma Brother Lung cancer Social History Social History Household Members: Children Housing: Apartment Are you a primary physician primary care sports medicine to a significant other at home: No Do you presently have visiting nurse or other home services: No Alcohol intake: never Patient Tobacco Use Status: Former Tobacco user Tobacco use type: Cigarette Smoked in Last 30 Days: No e-Cigarette/Vaping Use: Never Used Second Hand Smoke Exposure: No Use of substances other than those prescribed or required for medical reasons: No Advance Directives: Yes Advance Directives Information Provided: Yes Advance Directives on File: No Advance Directives Date on File: 01/08/24 Do you have a plan to hurt others: No Plan Nutrition Risks: No Nutritional Risk service: No Current occupational status: retired Current occupational exposures/hazards: No Cognitive needs: Yes (walker) Hearing needs: Yes Vision needs: Yes (glasses) Physical Exam ED Vital Signs: Vital Signs - 24 hr 06/24/24 12:57 06/24/24 13:12 06/24/24 13:22 Temperature 100.3 F Pulse Rate 90 97 88 Respiratory Rate 18 20 23 H Blood Pressure 119/58 L 128/54 L Pulse Oximetry 83 L 95 Oxygen Delivery Method Room Air Oxymask Oxygen Flow Rate 6 06/24/24 15:06 Temperature Pulse Rate Respiratory Rate Blood Pressure 123/47 L Pulse Oximetry Oxygen Delivery Method Oxygen Flow Rate BMI result Body Mass Index 27.4 febrile, hypoxic General: Well appearing, in no acute distress. Skin: Warm, dry, intact. No rashes or lesions. Head: Normocephalic, atraumatic. EENT: Hearing is intact b/l. Conjunctiva clear. PERRLA. EOM intact. Moist mucous membranes.? Neck: Supple without LAD Cardiac: Chest wall symmetric. Irregularly irregular. No pitting edema. Lungs: satting 95% on oxy mask. Breath sounds diminished to b/l bases with scattered expiratory wheeze. No crackles. Abdomen: Soft, non-tender, non-distended. No rebound tenderness or guarding Back: No midline spinous or paraspinal tenderness. No step off deformity. Ext: +multiple areas of ecchymosis to b/l UEs from recent IVs Neuro: AOx3. Normal speech. Gait not assess. Psych: Appropriate mood and affect. Responds appropriately to questions. Course Course Course Narrative: Leukocytosis to 12.4 with left shift. No anemia. H&H stable and above transfusion threshold. Chemistry showing hyponatremia to 147, hypercarbia to to 41 however this appears to be around patient's baseline secondary to COPD. BNP elevated to 342, elevated from BNP on discharge of 293 however improved from 664 on 06/10/24. troponin elevated to 35.9. will repeat for delta. > treated empirically with ceftriaxone/azithromycin > treated with albuterol and IV Solu-Medrol 1516 -- Workup consistent with ongoing pulmonary infiltrates unlikely mild pulmonary edema. discussed admission with hospitalist dr. contreras who has accepted admission. Medications Administered Generic Name Dose Route Start Last Admin Trade Name Freq PRN Reason Stop Dose Admin Apixaban 5 mg 06/24/24 21:00 06/24/24 20:49 Apixaban 5 Mg Tablet PO 5 mg BID TERE Administration Ascorbic Acid 500 mg 06/24/24 21:00 06/24/24 20:49 Ascorbic Acid 500 Mg Tablet PO 500 mg BID TERE Administration Atorvastatin Calcium 20 mg 06/24/24 21:00 06/24/24 20:49 Atorvastatin Calcium 20 Mg Tablet PO 20 mg BEDTIME TERE Administration Metoprolol Tartrate 50 mg 06/24/24 21:00 06/24/24 20:49 Metoprolol Tartrate 50 Mg Tablet PO 50 mg BID TERE Administration Protocol Sodium Chloride 3 ml 06/24/24 16:00 06/24/24 17:20 0.9 % Sodium Chloride Flush 3 Ml Syringe IVFLUSH 3 ml QSHIFT TERE Administration Discontinued Medications Generic Name Dose Route Start Last Admin Trade Name Morgan PRN Reason Stop Dose Admin Acetaminophen 975 mg 06/24/24 13:12 06/24/24 13:32 Acetaminophen 325 Mg Tablet PO 06/24/24 13:13 975 mg ONCE ONE Administration Ceftriaxone Sodium 1 gm 06/24/24 14:15 06/24/24 15:06 Ceftriaxone Sodium 1 Gm Vial IVPUSH 06/24/24 14:16 1 gm ONCE ONE Administration Albuterol Sulfate 2.5 mg/ 0 mg 06/24/24 13:22 06/24/24 13:30 Albuterol/Ipratropium 3 ml INHALE 06/24/24 13:23 5 dose ONCE ONE Administration Furosemide 40 mg 06/24/24 14:15 06/24/24 15:06 Furosemide 40 Mg/4 Ml Vial IVPUSH 06/24/24 14:16 40 mg ONCE ONE Administration Protocol Azithromycin 500 mg/ Sodium 250 mls @ 125 mls/hr 06/24/24 14:15 06/24/24 17:20 Chloride IV 06/24/24 16:14 Infused ONCE ONE Infusion Methylprednisolone Sodium Succinate 125 mg 06/24/24 13:12 06/24/24 13:33 Methylprednisolone Sod Succ 125 Mg/2 Ml Vial IVPUSH 06/24/24 13:13 125 mg ONCE ONE Administration Medical Decision Making Medical Decision Making MDM Narrative: 89-year-old female with PMHX significant for atrial fibrillation on Eliquis, diabetes, osteopenia, peripheral vascular disease, hypertension, COPD on 2.5 L via nasal cannula, breast cancer (s/p lumpectomy and radiation), CAD, 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 afebrile. not tachycardic. on exam, satting 95% on oxy mask. Breath sounds diminished to b/l bases with scattered expiratory wheeze. No crackles. Differential diagnosis includes viral syndrome, bronchitis, pneumonia, CHF, ACS, arrhythmia, acute hypoxic respiratory failure, COPD exacerbation, anemia, electrolyte abnormality. Plan for viral swabs, vbg, labs, cxr, ekg, ed bronch protocol, solumedrol, re- evaluation. Differential Diagnosis Differential Diagnoses: The differential diagnosis associated with the presentation includes as above. Admission/Observation Consideration of admission/observation: Escalation of care including admission/observation considered Patient admitted to medicine Consult Healthcare Provider Management of the patient was discussed with: Hospitalist (Dr. Contreras) Lab Data MDM Lab Attestation statement: I reviewed the patient's lab results. as above 06/24/24 13:20 06/24/24 13:20 Labs: Lab Results 06/24/24 06/24/24 06/24/24 Range/Units 13:20 13:26 14:11 WBC 12.4 H (4.8-10.8) X10*3/uL RBC 4.21 (4.20-5.50) X10*6/uL Hgb 11.7 L (12.0-16.0) g/dl Hct 39.4 (37.0-47.0) % MCV 93.6 (80.0-98.0) fL MCH 27.8 (27.0-33.0) pg MCHC 29.7 L (31.0-35.0) g/dl RDW 15.5 (11.0-16.0) % Plt Count 132 L (160-400) X10*3/uL MPV 12.8 H (9.4-12.3) fL Immature Gran % (Auto) 0.6 H (0.0-0.4) % Neut % (Auto) 81.7 H (45-73) % Lymph % (Auto) 3.6 L (20-40) % Payette % (Auto) 12.8 H (2-11) % Eos % (Auto) 1.2 (0-4) % Baso % (Auto) 0.1 (0-2) % Lymph # (Auto) 0.5 L (1.2-4.9) X10*3/uL Payette # (Auto) 1.6 H (0.1-1.2) X10*3/uL Eos # (Auto) 0.2 (0.0-0.4) X10*3/uL Baso # (Auto) 0.0 (0.0-0.2) X10*3/uL Abs Immat Gran (auto) 0.08 H (0.00-0.03) X10*3/uL Absolute Neuts (auto) 10.1 H (2.0-8.3) x10*3/uL Absolute Nucleated RBC 0.000 (0.0-0.012) X10*3/uL Nucleated RBC % (auto) 0.0 (0.0-0.2) /100WBC Smear Tech's Comments VERIFIED VBG pH 7.39 (7.32-7.43) VBG pCO2 81 mmHg VBG pO2 50 mmHg VBG HCO3 50 H (22-26) mmol/L VBG O2 Saturation 81.0 % VBG Base Excess 20.4 mmol/L Sodium 147 H (135-145) mmol/L Potassium 3.3 (3.3-5.1) mmol/L Chloride 97 (96-108) mmol/L Carbon Dioxide 41 H* (22-29) mmol/L Anion Gap 12 (12-20) BUN 44 H (9-16) mg/dL Creatinine 0.83 (0.5-1.4) mg/dL Estim Creat Clear Calc 48.1 Estimated GFR > 60 Random Glucose 191 H (60-115) mg/dL Lactic Acid 1.0 (0.5-2.0) mmol/L Calcium 8.3 L (8.4-10.2) mg/dL Magnesium 2.1 (1.6-2.6) mg/dL Total Bilirubin 1.6 H (0.0-1.0) mg/dL AST 34 H (5-31) U/L ALT 12 (0-31) U/L Alkaline Phosphatase 45 (39-117) U/L Troponin I High Sens 35.9 H D (<3.5-17.0) ng/L B-Natriuretic Peptide 342 H (<100) pg/mL Total Protein 6.2 L (6.5-8.0) g/dL Albumin 3.1 L (3.5-5.0) g/dL Influenza Type A (PCR) NEGATIVE (Negative) Influenza Type B (PCR) NEGATIVE (Negative) RSV RNA Qual (PCR) NEGATIVE (Negative) SARS-CoV-2 RNA (RT-PCR) NEGATIVE (Negative) Independent Interpretation I performed an independent interpretation of an: EKG and Plain X-Ray Interpretation: EKG showing rate controlled atrial fibrillation with a rate of 86 beats per minute, no acute ischemic changes or ST elevations. CXR showing opacities to right mid lung Radiology Impression Discussion of test interpretation with radiology: I have reviewed the radiologist's reading. Radiologist Impression: EXAMINATION: XR CHEST 1 VIEW HISTORY: SOB COMPARISON: Comparison is made with the prior examination dated 06/16/2024. FINDINGS: A single AP portable view of the chest performed at 1:40 PM is submitted. In seen is prominence of the pulmonary vasculature consistent with congestion. Airspace opacity in the right midlung zone and at the right lung base may represent pulmonary edema or pneumonia. There is no pneumothorax. The heart remains enlarged. The aorta is calcified. There is degenerative disc disease of the spine. XR/XR chest 1V IMPRESSION: Cardiomegaly and pulmonary vascular congestion. Airspace opacities in the right mid to lower lung zone may represent pulmonary edema or pneumonia. Electronically signed by: Navin Lassiter MD 06/24/2024 02:12 PM [facility] Independent Historian Clinical information obtained from an independent historian. History obtained from or confirmed by: EMS External Record Review External record reviewed: Inpatient record, Office record, Outpatient record, Prior outpatient labs, Prior outpatient radiology, Primary care record and Outside ED record Prescription Management I considered prescription management with: Antibiotic Chronic Conditions Patient?s care impacted by: Other (CHF, COPD, AFIB) Social Determinants Patient?s care significantly limited by Social Determinants of Health including: Other Social Determinant of Health Critical Care Time Critical Care Time Critical Care Time: Yes Total Critical Care Time: 35 Attestation: Critical care time in the amount of 35 minutes has been provided to the patient in terms of direct patient care, frequent reevaluation, consultation with hospitalist, review and interpretation of medical data and results, and management of potentially life-threatening conditions. This is all outside of any medical procedures. Discharge Plan Discharge Clinical Impression: Acute hypoxemic respiratory failure, CHF (congestive heart failure), Pneumonia Patient Disposition: Admitted As Inpatient
--- NOTE | 2024-06-24 13:00 | ECG_ITS ---
Test Reason : SOB Blood Pressure : */* mmHG Vent. Rate : 86 BPM Atrial Rate : * BPM P-R Int : * ms QRS Dur : 78 ms QT Int : 362 ms P-R-T Axes : * 91 20 degrees QTcB Int : 433 ms Atrial fibrillation Rightward axis Abnormal ECG When compared with ECG of 10-Jun-2024 16:53, No significant change was found Referred By: Brittani James Electronically Signed By: CORY COLON MD
[2024-06-24 13:30] LABS: Basophils Percent Auto 0.1 % (0-2); Eosinophils Absolute Auto 0.2 X10*3/uL (0.0-0.4); Eosinophils Percent Auto 1.2 % (0-4); Hematocrit 39.4 % (37.0-47.0); Hemoglobin 11.7 g/dl (12.0-16.0); Imm Gran Abs Auto 0.08 X10*3/uL (0.00-0.03); Imm Gran Pct Auto 0.6 % (0.0-0.4); Lymphocytes Absolute Auto 0.5 X10*3/uL (1.2-4.9); Lymphocytes Percent Auto 3.6 % (20-40); MANUAL DIFF FLAG SCAN; Mean Corpuscular HGB Conc 29.7 g/dl (31.0-35.0); Mean Corpuscular Hemoglobin 27.8 pg (27.0-33.0); Mean Corpuscular Volume 93.6 fL (80.0-98.0); Mean Platelet Volume 12.8 fL (9.4-12.3); Monocytes Absolute Auto 1.6 X10*3/uL (0.1-1.2); Monocytes Percent Auto 12.8 % (2-11); Neutrophils Absolute Auto 10.1 x10*3/uL (2.0-8.3); Neutrophils Percent Auto 81.7 % (45-73); Platelet Count 132 X10*3/uL (160-400); Red Blood Count 4.21 X10*6/uL (4.20-5.50); Red Cell Distribution Width 15.5 % (11.0-16.0); SCAN SMEAR FLAG 1; White Blood Count 12.4 X10*3/uL (4.8-10.8)
[2024-06-24] MEDS: Albuterol Sulfate 2.5 MG, Albuterol/Iprat 2.5/0.5MG 3 ML 3 ML INHALE (13:30)
[2024-06-24] MEDS: Acetaminophen 325 MG TABLET 975 MG PO (13:32)
[2024-06-24] MEDS: methylPREDNISolone Sod Succ 125 MG/2 ML VIAL IVPUSH (13:33)
[2024-06-24 13:34] LABS: VBG Base Excess 20.4 mmol/L; VBG HCO3 50 mmol/L (22-26); VBG pCO2 81 mmHg; VBG pH 7.39 (7.32-7.43); VBG pO2 50 mmHg
[2024-06-24 13:38] LABS: Venous Blood Gas Refer to POC result
[2024-06-24 13:51] LABS: B Type Natriuretic Peptide 342 pg/mL (<100); SLIDE REVIEW VERIFIED; Troponin-I High Sensitivity 35.9 ng/L (<3.5-17.0)
[2024-06-24 14:00] LABS: Alanine Aminotransferase 12 U/L (0-31); Albumin Level 3.1 g/dL (3.5-5.0); Aspartate Amino Transferase 34 U/L (5-31); Bilirubin Total 1.6 mg/dL (0.0-1.0); Blood Urea Nitrogen 44 mg/dL (9-16); Calcium 8.3 mg/dL (8.4-10.2); Creatinine Clr Calc Pharmacy 48.1; Estimated Glomerular Filt Rate > 60; Glucose Random 191 mg/dL (60-115); Magnesium 2.1 mg/dL (1.6-2.6); Total Protein 6.2 g/dL (6.5-8.0)
[2024-06-24 14:09] LABS: Alkaline Phosphatase 45 U/L (39-117); Anion Gap 12 (12-20); Carbon Dioxide 41 mmol/L (22-29); Chloride 97 mmol/L (96-108); Potassium 3.3 mmol/L (3.3-5.1); Sodium 147 mmol/L (135-145)
[2024-06-24 14:12] LABS: Influenza A PCR NEGATIVE (Negative); Influenza B PCR NEGATIVE (Negative); Resp Syncy Virus RNA Qual PCR NEGATIVE (Negative); SARS COV2 PCR INHOUSE NEGATIVE (Negative)
[2024-06-24] MEDS: Furosemide 40 MG/4 ML VIAL IVPUSH (15:06)
[2024-06-24] MEDS: cefTRIAXone sodium 1 GM VIAL IVPUSH (15:06)
[2024-06-24] MEDS: Azithromycin 500 MG in 0.9 % Sodium Chloride 250 ML 125 MG IV (15:13)
--- NOTE | 2024-06-24 15:28 | HO.SKINPHOTO ---
Location: L bicep hematoma Category: Stage: Length: Width: Depth: cm Location: R hip Category: rash Stage: Length: Width: Depth: cm Location: Category: sputum Stage: Length: Width: Depth: cm Location: Category: Stage: Length: Width: Depth: cm Location: Category: Stage: Length: Width: Depth: cm Location: Category: Stage: Length: Width: Depth: cm
--- OUTSIDE RECORDS SUMMARY | 2024-06-24 15:36 | XMS_ITS | Encounter Summary ---
Author Organization [facility] Address [address] [place] [address] Care Team Providers Care Attendant Arcade Name Role Phone Kamar Swanson MD Primary Care Provider [phone] Encounter Details Date Type Department Care Team (Late st Contact Info) Description 06/23/2024 Lab Requisition [facility] - Main Lab [address] [place] [address] Kamar Swanson MD [address] [place] [address] [address] [place], [phone] Essential (primary) hypertension; Chronic obstructive pulmonary disease, unspecified (CMS/HCC) Social History Tobacco Use Types Packs/Day Years Used Date Smoking Tobacco: Never Assessed Sex and Gender Information Value Date Recorded Sex Assigned at Not on file Gender Identity Not on file Sexual Orientation Not on file documented as of this encounter Plan of Treatment Not on file documented as of this encounter Procedures Procedure Name Priority Date/Time Associated Diagnosis Comments COMPLETE BLOOD COUNT Routine 06/23/2024 6:15 AM EST Essential (primary) hypertension Chronic obstructive pulmonary disease, unspecified (CMS/HCC) COMPREHENSIVE METABOLIC PANEL Routine 06/23/2024 6:15 AM EST Essential (primary) hypertension Chronic obstructive pulmonary disease, unspecified (CMS/HCC) documented in this encounter Results * (ABNORMAL) Comprehensive metabolic panel (06/23/2024 6:15 AM EST) Sodium 140 133 - 145 mmol/L LAB CHEMISTRY METHOD 06/23/2024 11:[address] [facility] Potassium 3.3(L) 3.5 - 5.5 mmol/L LAB CHEMISTRY METHOD 06/23/2024 11:51 AM [facility] Chloride 96 96 - 110 mmol/L LAB CHEMISTRY METHOD 06/23/2024 11:51 AM [facility] CO2 42(HH) 21 - 32 mmol/L LAB CHEMISTRY METHOD 06/23/2024 11:51 AM [facility] LAB Comment:Results verified by repeat testing Anion Gap 2(L) 3 - 11 LAB CHEMISTRY METHOD 06/23/2024 11:51 AM [facility] Glucose 160(H) 70 - 100 mg/dL LAB CHEMISTRY METHOD 06/23/2024 11:51 AM [facility] BUN 45(H) 5 - 25 mg/dL LAB CHEMISTRY METHOD 06/23/2024 11:51 AM [facility] Creatinine 0.99 0.50 - 1.10 mg/dL LAB CHEMISTRY METHOD 06/23/2024 11:51 AM [facility] eGFR 55(L) >=60 mL/min/1. 73m2 LAB CHEMISTRY METHOD 06/23/2024 11:51 AM [facility] LAB Comment:Calculation based on the??Chronic Kidney Disease Epidemiology Collaboration (CKD-EPI) equation refit??without adjustment for race. BUN/Creatinine Ratio 45.5 LAB CHEMISTRY METHOD 06/23/2024 11:51 AM [facility] Calcium 8.5 8.5 - 10.5 mg/dL LAB CHEMISTRY METHOD 06/23/2024 11:51 AM [facility] AST (SGOT) 19 10 - 42 unit/L LAB CHEMISTRY METHOD 06/23/2024 11:51 AM [facility] ALT (SGPT) 21 10 - 60 unit/L LAB CHEMISTRY METHOD 06/23/2024 11:51 AM [facility] Alkaline Phosphatase 54 42 - 121 unit/L LAB CHEMISTRY METHOD 06/23/2024 11:51 AM [facility] Total Protein 6.5 6.0 - 8.0 g/dL LAB CHEMISTRY METHOD 06/23/2024 11:51 AM EST [facility] LAB Albumin 3.1(L) 3.2 - 5.0 g/dL LAB CHEMISTRY METHOD 06/23/2024 11:51 AM [facility] Total Bilirubin 1.5(H) 0.0 - 1.4 mg/dL LAB CHEMISTRY METHOD 06/23/2024 11:51 AM [facility] Blood Venous blood specimen / Unknown Venipuncture / Unknown 06/23/2024 6:15 AM EST 06/23/2024 8:43 AM EST Kamar Swanson MD LAB BLOOD ORDERABLES [facility] [address] [place] [address], * (ABNORMAL) Complete blood count (06/23/2024 6:15 AM EST) WBC 18.5(H) 4.8 - 10.8 K/mcL LAB HEMETOLOGY METHOD 06/23/2024 9:25 AM [facility] RBC 4.50 3.80 - 4.80 M[facility] LAB HEMETOLOGY METHOD 06/23/2024 9:25 AM [facility] Hemoglobin 12.5 11.5 - 16.0 g/dL LAB HEMETOLOGY METHOD 06/23/2024 9:25 AM [facility] Hematocrit 43.8 35.0 - 47.0 % LAB HEMETOLOGY METHOD 06/23/2024 9:25 AM [facility] MCV 97.1 79.0 - 98.0 FL LAB HEMETOLOGY METHOD 06/23/2024 9:25 AM [facility] MCH 27.7 27.0 - 32.0 pcg LAB HEMETOLOGY METHOD 06/23/2024 9:25 AM [facility] MCHC 28.5(L) 32.0 - 37.0 g/dL LAB HEMETOLOGY METHOD 06/23/2024 9:25 AM EST [facility] RDW 15.0 11.0 - 15.0 % LAB HEMETOLOGY METHOD 06/23/2024 9:25 AM [facility] Platelets 139 130 - 400 K/mcL LAB HEMETOLOGY METHOD 06/23/2024 9:25 AM EST [facility] LAB MPV 13.2(H) 7.0 - 11.0 FL LAB HEMETOLOGY METHOD 06/23/2024 9:25 AM EST [facility] NRBC 0.0 <1.0 % LAB HEMETOLOGY METHOD 06/23/2024 9:25 AM [facility] NRBC Absolute 0.00 <0.10 K/mcL LAB HEMETOLOGY METHOD 06/23/2024 9:25 AM EST [facility] Blood Venous blood specimen / Unknown Venipuncture / Unknown 06/23/2024 6:15 AM EST 06/23/2024 8:43 AM EST Kamar Swanson MD LAB BLOOD ORDERABLES [facility] [address] [place] [address], documented in this encounter Visit Diagnoses Diagnosis Essential (primary) hypertension Unspecified essential hypertension Chronic obstructive pulmonary disease, unspecified (CMS/HCC) documented in this encounter Care Teams Attendant Arcade Relationship Specialty Start Date End Date Kamar Swanson MD [address] [place] [phone] PCP - General Family Medicine 06/23/24 documented as of this encounter
--- OUTSIDE RECORDS SUMMARY | 2024-06-24 15:36 | XMS_ITS | Clinical Summary ---
Author Organization [address] [facility] Address [address] [place] [address] Phone Care Team Providers Care Turret Lathe Machinist Name Role Phone Kamar Swanson MD Primary Care Provider [phone] Encounters Date Type Department Care Team Description 06/23/2024 Lab Requisition [facility] - Main Lab [address] [facility] [place] [address] Kamar Swanson MD Essential (primary) hypertension; Chronic obstructive pulmonary disease, unspecified (CMS/HCC) from Last 3 Months Social History Tobacco Use Types Packs/Day Years Used Date Smoking Tobacco: Never Assessed Sex and Gender Information Value Date Recorded Sex Assigned at Not on file Gender Identity Not on file Sexual Orientation Not on file Plan of Treatment Health Maintenance Due Date Last Done Comments Pneumococcal Vaccine: 65+ Ye ars (1 of 2 - PCV) 1941 DTaP,Tdap,and Td Vaccines (1 - Tdap) 1954 Zoster Vaccines (1 of 2) 1985 RSV Immunization Patients 60 + Years Old (1 - 1-dose 75+ series) 2010 COVID-19 Vaccine ( - 2023-2 5 season) 2024 Influenza Vaccine (#1) 2024 Cholesterol Screening (Lipid Panel) 06/24/2024 Depression Screening 06/24/2024 Falls Risk Assessment 06/24/2024 Osteoporosis Screening (Bone Density Screening) 06/24/2024 Social Influencers of Health Screening 06/24/2024 Hypertension/CHF/CAD Annual BMP Blood Test 06/23/2025 06/23/2024 HIB Vaccines Aged Out No longer eligi ble based on patient's age to complete this topic HPV Vaccines Aged Out No longer eligi ble based on patient's age to complete this topic Hepatitis A Vaccines Aged Out No long er eligible based on patient's age to complete this topic Hepatitis B Vaccines Aged Out No long er eligible based on patient's age to complete this topic IPV Vaccines Aged Out No longer eligi ble based on patient's age to complete this topic MMR Vaccines Aged Out No longer eligi ble based on patient's age to complete this topic Meningococcal ACWY Vaccine Aged Out N o longer eligible based on patient's age to complete this topic RSV Immunization Patients Un delfino 20 months Aged Out No longer eligible b ased on patient's age to complete this topic Varicella Vaccines Aged Out No longer eligible based on patient's age to complete this topic Procedures Procedure Name Priority Date/Time Associated Diagnosis Comments COMPREHENSIVE METABOLIC PANEL Routine 06/23/2024 6:15 AM EST Essential (primary) hypertension Chronic obstructive pulmonary disease, unspecified (CMS/HCC) COMPLETE BLOOD COUNT Routine 06/23/2024 6:15 AM EST Essential (primary) hypertension Chronic obstructive pulmonary disease, unspecified (CMS/HCC) from Last 3 Months Results * (ABNORMAL) Complete blood count (06/23/2024 6:15 AM EST) WBC 18.5(H) 4.8 - 10.8 K/mcL LAB HEMETOLOGY METHOD 06/23/2024 9:25 AM [facility] RBC 4.50 3.80 - 4.80 M/mcL LAB HEMETOLOGY METHOD 06/23/2024 9:25 AM [facility] Hemoglobin 12.5 11.5 - 16.0 g/dL LAB HEMETOLOGY METHOD 06/23/2024 9:25 AM [facility] LAB Hematocrit 43.8 35.0 - 47.0 % LAB HEMETOLOGY METHOD 06/23/2024 9:25 AM [facility] LAB MCV 97.1 79.0 - 98.0 FL LAB HEMETOLOGY METHOD 06/23/2024 9:25 AM [facility] MCH 27.7 27.0 - 32.0 pcg LAB HEMETOLOGY METHOD 06/23/2024 9:25 AM EST [facility] LAB MCHC 28.5(L) 32.0 - 37.0 g/dL LAB HEMETOLOGY METHOD 06/23/2024 9:25 AM EST [facility] RDW 15.0 11.0 - 15.0 % LAB HEMETOLOGY METHOD 06/23/2024 9:25 AM [facility] Platelets 139 130 - 400 K/mcL LAB HEMETOLOGY METHOD 06/23/2024 9:25 AM [facility] MPV 13.2(H) 7.0 - 11.0 FL LAB HEMETOLOGY METHOD 06/23/2024 9:25 AM [facility] NRBC 0.0 <1.0 % LAB HEMETOLOGY METHOD 06/23/2024 9:25 AM [facility] NRBC Absolute 0.00 <0.10 K/mcL LAB HEMETOLOGY METHOD 06/23/2024 9:25 AM [facility] Blood Venous blood specimen / Unknown Venipuncture / Unknown 06/23/2024 6:15 AM EST 06/23/2024 8:43 AM EST Kamar Swanson MD LAB BLOOD ORDERABLES [facility] [address] [place] [address], * (ABNORMAL) Comprehensive metabolic panel (06/23/2024 6:15 AM EST) Sodium 140 133 - 145 mmol/L LAB CHEMISTRY METHOD 06/23/2024 11:51 AM EST [facility] Potassium 3.3(L) 3.5 - 5.5 mmol/L LAB CHEMISTRY METHOD 06/23/2024 11:51 AM [facility] Chloride 96 96 - 110 mmol/L LAB CHEMISTRY METHOD 06/23/2024 11:51 AM EST [facility] CO2 42(HH) 21 - 32 mmol/L LAB CHEMISTRY METHOD 06/23/2024 11:51 AM [facility] LAB Comment:Results verified by repeat testing Anion Gap 2(L) 3 - 11 LAB CHEMISTRY METHOD 06/23/2024 11:51 AM [facility] Glucose 160(H) 70 - 100 mg/dL LAB CHEMISTRY METHOD 06/23/2024 11:51 AM [facility] BUN 45(H) 5 - 25 mg/dL LAB CHEMISTRY METHOD 06/23/2024 11:51 AM [facility] Creatinine 0.99 0.50 - 1.10 mg/dL LAB CHEMISTRY METHOD 06/23/2024 11:51 AM [facility] eGFR 55(L) >=60 mL/min/1. 73m2 LAB CHEMISTRY METHOD 06/23/2024 11:51 AM [facility] LAB Comment:Calculation based on the??Chronic Kidney Disease Epidemiology Collaboration (CKD-EPI) equation refit??without adjustment for race. BUN/Creatinine Ratio 45.5 LAB CHEMISTRY METHOD 06/23/2024 11:51 AM [facility] Calcium 8.5 8.5 - 10.5 mg/dL LAB CHEMISTRY METHOD 06/23/2024 11:51 AM [facility] AST (SGOT) 19 10 - 42 unit/L LAB CHEMISTRY METHOD 06/23/2024 11:51 AM [facility] ALT (SGPT) 21 10 - 60 unit/L LAB CHEMISTRY METHOD 06/23/2024 11:51 AM [facility] Alkaline Phosphatase 54 42 - 121 unit/L LAB CHEMISTRY METHOD 06/23/2024 11:51 AM [facility] Total Protein 6.5 6.0 - 8.0 g/dL LAB CHEMISTRY METHOD 06/23/2024 11:51 AM [facility] Albumin 3.1(L) 3.2 - 5.0 g/dL LAB CHEMISTRY METHOD 06/23/2024 11:51 AM EST [facility] Total Bilirubin 1.5(H) 0.0 - 1.4 mg/dL LAB CHEMISTRY METHOD 06/23/2024 11:51 AM EST [facility] Blood Venous blood specimen / Unknown Venipuncture / Unknown 06/23/2024 6:15 AM EST 06/23/2024 8:43 AM EST Kamar Swanson MD LAB BLOOD ORDERABLES [facility] ([facility] [address] [place] [address], from Last 3 Months Care Teams Turret Lathe Machinist Relationship Specialty Start Date End Date Kamar Swanson MD [address] [facility] [address] [place] [address] PCP - General Family Medicine 06/23/24
--- OUTSIDE RECORDS SUMMARY | 2024-06-24 15:36 | XMS_ITS ---
Author Organization [facility] Address [address] [facility] [place] [address] Care Team Providers Care Construction Tech Name Role Phone Radha Ramsey Primary Care Provider Unavailabl e Lorena Santos Unavailable [phone] Allergies Allergen (clinical drug ingredient) Drug/Non Drug Allergy documented on EMR Reaction Allergy Type Onset Date Status sulfamethoxazole / trimethoprim Bactrim Chills Drug Allergy Active vladimir inhibitors tongue swells Drug Allergy Active REASON FOR VISIT Painful nail(s) aggravated by shoes causing difficulty standing/walking, Swelling, Foot pain Medications Medication SIG (Take, Route, Frequency, Duration) Notes Start Date End Date Status Atenolol Not-Taking Keflex 500 MG 1 capsule Orally Twi ce a day 04/25/2013 Not-Taking dilTIAZem HCl Unknow n Klor-Con 20 MEQ 1 packet with food Orally Once a day Unknown Combivent Not-Taking Aspirin 81 MG Once a day Not-T aking prednisoLONE Sodium Phosphate Not-Taking Lovastatin 20 mg Not -Taking Nifedical XL Not-Georgi ing Nitroglycerin Not-Ta zach Isosorbide Dinitrate 30 MG 1 tablet Oral ly once a day Active eliquis 5 mg Active B12 Active Aspercreme Arthritis Pain 1 % as directed Externally 06/18/2023 Activ e Compression Stockings 20-30mm Hg 1 pair wear daily for 30 days Active Metoprolol Succinate 50 MG 1 capsule Ora lly Once a day Active Vitamin D Active Vitamin C 500 MG as directed Orally Active Furosemide 40 MG 1 tablet Orally Once a day Active Atorvastatin Calcium 20 MG 1 tablet Oral ly Once a day Active Potassium Chloride CR Active Nitrostat 0.4 MG as directed Sublingual Active Progesterone Not-Georgi ing Albuterol Active Trelegy Ellipta Acti ve Social History Tobacco Use: Social History Observation Description Date Details (start date - stop date) Never Smoker NA - NA Tobacco use other than smoking: Question Answer Notes Are you an other tobacco user? No Tobacco Control (Standard) Question Answer Notes Tobacco use: Nonsmoker Additional Findings: Tobacco non-user Ex-cigaret te smoker Vital Signs Height 5ft in 04/18/2024 Weight 164 lbs 04/18/2024 BMI 32.03 kg/m2 04/18/2024 Blood pressure systolic 131 mm Hg 04/18/20 24 Blood pressure diastolic 71 mm Hg 024 Procedures Procedure Date Ordered Date Performed Result Body Sit e 32672-FIETCPC NAIL, 6 OR MORE 04/18/2024 N/A Encounters Encounter Location Date Provider Diagnosis [facility] [address] [address] 04/18/2024 Lorena Santos Tinea unguium B35.1 ; Edema, lower extremity R60.0 ; Pain in right toe(s) M79.674 ; Pain in left toe(s) M79.675 ; Neuropathy G62.9 and Neuropathic pain M79.2 Assessments Encounter Date Diagnosis (ICD Code) Assessment Notes Treatment Notes Treatment Clinical Notes Section Notes 04/18/2024 Tinea unguium (ICD-10 - B35.1) 04/18/2024 Edema, lower extremity (ICD-10 - R60.0) 04/18/2024 Pain in right toe(s) (ICD-10 - M79.674) 04/18/2024 Pain in left toe(s) (ICD-10 - M79.675) 04/18/2024 Neuropathy (ICD-10 - G62.9) 04/18/2024 Neuropathic pain (ICD-10 - M79.2) Plan Of Treatment Pending Test Test Name Order Date [id number] NAIL, 6 OR MORE 04/18/2024 Next Appt Details Follow Up: prn, Reason: Provider Name:Lorena Santos , 08/01/2024 11:00:00 AM, [address] [place] [address], [id number], Procedure Notes * Category Sub-Category Detail Notes Debride Nail 6-10 Nail debridement Performance o f this nail treatment by a nonprofessional would put this patients foot and overall health at risk. Therefore, debridement to affected nail(s), as described in exam, was performed extensively to reduce/remove overall nail length, girth, thickness, subungual debris, and necrotic tissue, by manual and/or electrical means through the use of a nail nipper and/or dremel-type grinder operator, to a more viable healthy nail plate or bed tissue 6-10. Silver nitrate used for any petechial bleeding as necessary. Definitive antifungal treatment options have been reviewed and discussed with the patient. The patient chooses, no pharmaceutical tx - 32659 Progress Notes * Zenia SALINAS TruptiDOB:1935 (89 yo F)Acc No.[id number]:04/18/2024 Progress Note Patient:?Zenia SALINAS Provider:?Lorena Santos DPM :1935???Age:89 Y???Sex:Female D ate:04/18/2024 Address:[address] [place] [address], [facility] [address], [facility] Pcp:Radha Ramsey Subjective: * Chief Complaints: * ???Painful nail(s) aggravate d by shoes causing difficulty standing/walkingSwellingFoot pain * HPI: ???Painful Nails:?Pt States Last PCP Visit:?Date:?02/27/2024 ???Swelling:?Location:?Both feet/leg.?Duration:?several weeks.?Course:?, improved 50 %.?Treatment:?Compression stockings and increased diuretic.?Foot Pain:?Nature:?, numbness.?Location:?, B/L big toes.?Duration:?several months.?Onset:?unknown.?Course:?, improved, at _60 %.?Aggravated:?any pressure.?Treatments:?Rest/alter normal daily activity, topical medication and massage therapy.? * ROS:?General/Constitutional:?Nausea?denies.?Vomiting?denies.?Hunger Thirst?denies.?Loss appetite?denies.?Chills?denies.?Fatigue?denies.?Fever?denies.?Night Sweats?admits.?Unexplained weight loss?denies.?Unexplained weight gain?denies.?HEENTM:?Dentures?denies.?Dizziness?denies.?Glasses/contacts?admits.?Retinopathy?de nies.?Blurred/double vision?denies.?TMJ?denies.?Discharge/drainage?denies.?Implants?denies.?Sore throat?denies.?Dental implants?denies.?Hard of hearing ?denies.?Difficulty chewing/swallowing/speaking?denies.?Nose bleeds?denies.?Sore mouth?denies.?Respiratory:?On Oxygen?admits.?Pneumonia/pleurisy?denies.?Bronchitis?denies.?Emphysema?denies.?C oughing?denies.?Cough blood?denies.?Shortness of breath?admits.?Wheezing?denies.?Cardiovascular:?Pacemaker?denies.?MVP?denies.?WPW?denies.?CHF?denies.?Heart attack?denies.?Septal defect?denies.?Rapid beat?denies.?Chest pain ?denies.?Atrial Fib.?admits.?Murmur/Palpitations?denies.?Gastrointestinal:?Hemorrhoids?denies.?Stomach/Abdominal pain?denies.?Dark blood stool?denies.?Irritable bowel ?denies.?Constipation?denies.?Diarrhea?denies.?Hematology:?Swelling?denies.?Clots?denies.?Varicose Veins?denies.?Bruising?denies.?Bleeding problem?denies.?Genitourinary:?Blood urine?denies.?Frequent/Painfu/urination/bladder control?denies.?Kidney stones?denies.?Infection (UTI)?denies.?Nephropathy?denies.?sex trans dis (STD)?denies.?Prostate?denies.?Musculoskeletal:?Hammertoes?denies.?Bunions?denies.?Back Pain?denies.?Muscle Cramps/ Resting?denies.?Muscle cramps / walking?denies.?Generalized aches and pains?denies.?Weakness?denies.?Integ.:?Ferrer?denies.?Scars?denies.?Corns/calluses?denies.?Ingrown nails?denies.?Painful nails?,admits.?Open Sores?denies.?Rashes?denies.?Neurologic:?Difficulty sleeping?denies.?Brain disorder?denies.?Numbness?, admits.?Balance trouble?denies.?Confusion?denies.?Fainting/blackouts?denies.?Tingling?denies.?Tr emors?denies.? * Medical History:? * Surgical History:?cancer satinder chely lung cataract surgery * Hospitalization/Major Diagno stic Procedure:[place] [place] [place] [facility]- Blood Transfusion- bleeding internally 01/21[facility] [place] couldn't breathe 01/13/24 * Family History:?Mother: dece ased, heart condition.?Father: , heart condition.?Siblings: cancer.?Children: diabetes.? * Social History:?Tobacco Use:?Tobacco use other than smoking?Are you an other tobacco user??No ?Tobacco Control (Standard)?Tobacco use:?Nonsmoker ?Additional Findings: Tobacco non-user?Ex-cigarette smoker * Medications:?TakingPotassium Chloride CR Nitrostat 0.4 MG Tablet Sublingual as directed Sublingual Trelegy Ellipta Albuterol Metoprolol Succinate 50 MG Capsule ER 24 Hour Sprinkle 1 capsule Orally Once a day Furosemide 40 MG Tablet 1 tablet Orally Once a day Atorvastatin Calcium 20 MG Tablet 1 tablet Orally Once a day Vitamin D Vitamin C 500 MG Capsule as directed Orally eliquis 5 mg Tablet B12 Isosorbide Dinitrate 30 MG Tablet 1 tablet Orally once a day Aspercreme Arthritis Pain 1 % Gel as directed Externally Compression Stockings 20-30mm Hg closed toe- knee high 1 pair wear daily Taking Potassium Chloride CR Taking Nitrostat 0.4 MG Tablet Sublingual as directed Sublingual Taking Trelegy Ellipta Taking Albuterol Taking Metoprolol Succinate 50 MG Capsule ER 24 Hour Sprinkle 1 capsule Orally Once a day Taking Furosemide 40 MG Tablet 1 tablet Orally Once a day Taking Atorvastatin Calcium 20 MG Tablet 1 tablet Orally Once a day Taking Vitamin D Taking Vitamin C 500 MG Capsule as directed Orally Taking eliquis 5 mg Tablet Taking B12 Taking Isosorbide Dinitrate 30 MG Tablet 1 tablet Orally once a day Taking Aspercreme Arthritis Pain 1 % Gel as directed Externally Taking Compression Stockings 20-30mm Hg closed toe- knee high 1 pair wear daily Not-Taking/PRNProgesterone Aspirin 81 MG Once a day prednisoLONE Sodium Phosphate Nifedical XL Nitroglycerin Lovastatin 20 mg Combivent Atenolol Keflex 500 MG Capsule 1 capsule Orally Twice a day Not-Taking/PRN Progesterone Not-Taking/PRN Aspirin 81 MG Once a day Not-Taking/PRN prednisoLONE Sodium Phosphate Not-Taking/PRN Nifedical XL Not-Taking/PRN Nitroglycerin Not-Taking/PRN Lovastatin 20 mg Not-Taking/PRN Combivent Not-Taking/PRN Atenolol Not-Taking/PRN Keflex 500 MG Capsule 1 capsule Orally Twice a day UnknowndilTIAZem HCl Klor-Con 20 MEQ Packet 1 packet with food Orally Once a day Medication List reviewed and reconciled with the patientUnknown dilTIAZem HCl Unknown Klor-Con 20 MEQ Packet 1 packet with food Orally Once a day Medication List reviewed and reconciled with the patient * Allergies:?vladimir inhibitors: t ongue swellsBactrim: Chillsyes[Allergies Verified] Objective: * Vitals:?Ht: 5ft, Wt: 164, BM I: 32.03, Shoe size: 6.5W-7, BP: 131/71 mm Hg, Ht- cm: 152.4 cm, Wt-k.39 kg. * Examination: ???General Examination: ?GENERAL APPEARANCE:?Reveals a pleasant, alert, well nourished, well- developed, well hydrated individual, who demonstrates proper attention to hygiene/body habitus, and is in no acute distress, Pt serves as own historian for office visit today.?ORIENTED:?person, place, and time.?Nails: ?NAILS are:?Elongated, overgrown, dystrophic, lytic, greater than 3mm thick, discolored and friable with crumbly malodorous subungual debris, with pain on palpation , 1,3-5 Right foot , 1-5 Left foot.?Vascular: ?PT PULSES(B):?2/4, B/L.?CAPILLARY FILL TIME:?3 secs. per digit, B/L.?TROPHIC CONDITION-TEXTURE/ELASTICITY/TURGOR/HAIR GROWTH(B):?normal, B/L.?TEMPERTURE GRADIENT(C):?normal, warm to cool, proximal to distal, B/L, B/L.?PIGMENTATION:?normal, B/L.?EDEMA(C):?3/4 , non-pitting , Leg(s) , Ankle(s) , Foot , B/L.?REFUGIO'S SIGN:?absent, B/L.?PALPABLE CORDS:?absent, B/L.?Neurological: ?SENSORY:?Neurological exam demonstrates reduced sharp/dull pin prick discrimination reduced light touch sensation reduced vibration sensation reduced proprioception sensation in a stocking fashion 5.07 monofilament test performed at plantar aspects of 5 varied sites per foot shows sensation plantar aspects absent at Forefoot B/L , Pt relates , anesthesia especially in great toes.?Neuroma Pain: ?PALPATION:?No interspace pain noted on palpation.? Assessment: * Assessment: 1.?Tinea unguium - B35.1???2 .?Edema, lower extremity - R60.0 (Primary)???Specify :Response to treatment - Improvement???3.?Pain in right toe(s) - M79.674???4.?Pain in left toe(s) - M79.675???5.?Neuropathy - G62.9???Specify :Response to treatment - Improvement???6.?Neuropathic pain - M79.2??? Plan: * Treatment: * Procedures:?Debride Nail 6-10:?Nail debridement?Performance of this nail treatment by a nonprofessional would put this patients foot and overall health at risk. Therefore, debridement to affected nail(s), as described in exam, was performed extensively to reduce/remove overall nail length, girth, thickness, subungual debris, and necrotic tissue, by manual and/or electrical means through the use of a nail nipper and/or dremel-type grinder operator, to a more viable healthy nail plate or bed tissue 6-10. Silver nitrate used for any petechial bleeding as necessary. Definitive antifungal treatment options have been reviewed and discussed with the patient. The patient chooses, no pharmaceutical tx - 77241.? * Procedure Codes:?65607 DEBRI DE NAIL, 6 OR MORE, Modifiers: XS * Preventive Medicine:? ??Counseling:?Discussion:?-13: Office or other outpatient visit for the evaluation and management of an established patient, which required a medically appropriate history and/or examination and LOW level of DECISION MAKING for: 1 STABLE ACUTE UNCOMPLICATED PROBLEM, 2 OR MORE MINOR PROBLEMS, OR 1 STABLE CHRONIC PROBLEM, THAT POSE(S) A LOW RISK FOR MORBIDITY/MORTALITY. The visit on the day of the encounter encompassed interpreting the data and educating the patient as to the nature of their condition, treatment options available according to their individual PMH, meds, allergies, and overall health/living conditions, as well as any potential risks or complications that may occur from a failure to adhere to, and participate in, the recommended course of therapy. The discussion included a complete verbal, and/or written explanation of the examination results, any x-rays taken, the proposed diagnosis, and outline of the treatment plan. A schedule for future care needs was also explained. The patient verbalized an understanding of the instructions at this time and agreed to be an active participant in their treatment. If the patient should think of any questions or concerns after the visit, I have encouraged the patient to call the office.?Edema:?Discussed other tx options for the patients condition, The patient wishes to continue with the present treatment plan for their condition given its success.?Neuritis/Neuropathy:?Discussed other tx options for the patients condition, given recent successful results to treatment, the patient wishes to continue with the present plan for their condition.? * Follow Up:?prn * Images: * Sign off status: Completed true * Provider:?Lorena Santos DPM Date:?2023 Generated for Gill hubbard/Hyacinth/Jaydonitting on:?06/24/2024 03:35 PM EST History and Physical Notes * HPI (History of Present Illness) Category Sub-Category Detail Notes Category Not es Painful Nails Pt States Last PCP Visit: Date:: 02/27/2024 Foot Pain Nature: , numbness Location: , B/L big toes Duration: several months Onset: unknown Course: , improved, at _60 % Aggravated: any pressure Treatments: Rest/alter normal da rafat activity, topical medication and massage therapy Swelling Location: Both feet/leg Duration: several weeks Course: , improved 50 % Treatment: Compression stocking s and increased diuretic Examination Category Sub-Category Detail Notes Category Not es Neuroma Pain PALPATION: No interspace pain noted on palpation Neurological SENSORY: Neurological exa m demonstrates reduced sharp/dull pin prick discrimination reduced light touch sensation reduced vibration sensation reduced proprioception sensation in a stocking fashion 5.07 monofilament test performed at plantar aspects of 5 varied sites per foot shows sensation plantar aspects absent at Forefoot B/L , Pt relates , anesthesia especially in great toes TINEL'S COMPRESSION: General Examination GENERAL APPEARANCE: Reveals a pleasant, alert, well nourished, well-developed, well hydrated individual, who demonstrates proper attention to hygiene/body habitus, and is in no acute distress, Pt serves as own historian for office visit today ORIENTED: person, place, and t graeme Vascular PT PULSES (B): 2/4, B/L CAPILLARY FILL TIME: 3 secs. per digit, B/L TEMPERTURE GRADIENT (C): normal, warm to cool, proximal to distal, B/L, B/L TROPHIC CONDITION-TEXTURE/ELASTICITY/TURGOR/HAIR GROWTH (B): normal, B/L EDEMA (C): 3/4 , non-pitting , Leg(s) , Ankle(s) , Foot , B/L REFUGIO'S SIGN: absent, B/L PALPABLE CORDS: absent, B/L PIGMENTATION: normal, B/L Nails NAILS are: Elongated, overg rown, dystrophic, lytic, greater than 3mm thick, discolored and friable with crumbly malodorous subungual debris, with pain on palpation , 1,3-5 Right foot , 1-5 Left foot
--- OUTSIDE RECORDS SUMMARY | 2024-06-24 15:36 | XMS_ITS ---
Author Organization [facility] Address [address] [place] [address] Care Team Providers Care Court Recording Monitor Name Role Phone Radha Ramsey Primary Care Provider Lorena Dacosta Unavailable [phone] REASON FOR VISIT SD cx 04/14 Encounters Encounter Location Date Provider Diagnosis [facility] [address] [place] [address] 04/14/2024 Lorena Santos Plan Of Treatment Next Appt Details Provider Name:Lorena Santos , 08/01/2024 11:00:00 AM, [address] [place], [address], Progress Notes * Zenia SALINASDOB:1935 (89 yo F)Acc No.[id number]:04/14/2024 Patient:?Zenia SALINAS :1935???Age:89 Y???Sex:Female Address:[address], [place], [address] * true * Date:? Generated for Printi ng/Faimang/eTransmitting on:?06/24/2024 03:36 PM EST
--- OUTSIDE RECORDS SUMMARY | 2024-06-24 15:36 | XMS_ITS ---
Author Organization [facility] Address [address] [place] [address] Care Team Providers Care Condenser Operator Name Role Phone Radha Ramsey Primary Care Provider Lorena Dacosta Unavailable [phone] Encounters Encounter Location Date Provider Diagnosis [facility] [address] [place] [address] 04/14/2024 Lorena Santos Plan Of Treatment Next Appt Details Provider Name:Lorena Santos , 08/01/2024 11:00:00 AM, [address] [place], [address], Progress Notes * Zenia SALINASDOB:1935 (89 yo F)Acc No.[id number]:04/14/2024 Progress Note Patient:?Zenia SALINAS Provider:?Lorena Santos DPM :1935???Age:89 Y???Sex:Female D ate:04/14/2024 Address:[address], [address], [place] Pcp:Radha Ramsey Subjective: * Chief Complaints: * ??? * Medical History:? Objective: * Vitals:? Assessment: Plan: * Treatment: * Images: * The named appointment provid er may or may not be the originator of this progress note, and it is not deemed complete until electronically signed by the appointment provider. Sign off status: Pending * Provider:Gavin Santos DPM Date:?2023 Generated for Gill hubbard/Hyacinth/Jaydonitting on:?06/24/2024 03:36 PM EST
--- OUTSIDE RECORDS SUMMARY | 2024-06-24 15:36 | XMS_ITS | Patient Health Record ---
Author Organization [facility] Address [address] [place] [address] Care Team Providers Care Receivable Clerk Name Role Phone BraulioAnupamawen Primary Care Provider Unavailabl e Black Lorena Unavailable [phone] Luz Marina Strickland Unavailable [phone] Allergies Allergen (clinical drug ingredient) Drug/Non Drug Allergy documented on EMR Reaction Allergy Type Onset Date Status sulfamethoxazole / trimethoprim Bactrim Chills Drug Allergy Active vladimir inhibitors tongue swells Drug Allergy Active Reason For Referral No Information Medications Medication SIG (Take, Route, Frequency, Duration) Notes Start Date End Date Status Isosorbide Dinitrate 30 MG 1 tablet Oral ly once a day Active eliquis 5 mg Active B12 Active Albuterol Active Metoprolol Succinate 50 MG 1 capsule Ora lly Once a day Active Klor-Con 20 MEQ 1 packet with food Orally Once a day Unknown Trelegy Ellipta Acti ve Vitamin D Active Vitamin C 500 MG as directed Orally Active Furosemide 40 MG 1 tablet Orally Once a day Active Atorvastatin Calcium 20 MG 1 tablet Oral ly Once a day Active dilTIAZem HCl Unknow n Potassium Chloride CR Active Nitrostat 0.4 MG as directed Sublingual Active Atenolol Not-Taking Progesterone Not-Georgi ing Keflex 500 MG 1 capsule Orally Twi ce a day 04/25/2013 Not-Taking Aspirin 81 MG Once a day Not-T aking prednisoLONE Sodium Phosphate Not-Taking Aspercreme Arthritis Pain 1 % as directed Externally 06/18/2023 Activ e Compression Stockings 20-30mm Hg 1 pair wear daily for 30 days Active Lovastatin 20 mg Not -Taking Combivent Not-Taking Nifedical XL Not-Georgi ing Nitroglycerin Not-Ta Social History Tobacco Use: Social History Observation Description Date Details (start date - stop date) Never Smoker NA - NA Alcohol Screen Question Answer Notes Did you have a drink containing alcohol in the p ast year? No Points 0 Interpretation Negative Tobacco use other than smoking: Question Answer Notes Are you an other tobacco user? 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 Vital Signs Blood pressure diastolic 71 mm Hg 04/18/2024 Height 5ft in 04/18/2024 Blood pressure systolic 131 mm Hg 04/18/2024 Weight 164 lbs 04/18/2024 BMI 32.03 kg/m2 04/18/2024 Procedures Procedure Date Ordered Date Performed Result Body Sit e 33969-TUUPRWB NAIL, 6 OR MORE 09/14/2023 N/A 16962-GREFKJK NAIL, 6 OR MORE 12/31/2023 N/A 31277-Tpqwlpgj Plate 12/31/2023 N/A 01608-KGFPLSP NAIL, 6 OR MORE 04/18/2024 N/A Encounters Encounter Location Date Provider Diagnosis [address] [address] 09/14/2023 Lorena Black Pain in left foot M79.672 ; Tinea unguium B35.1 ; Pain in left ankle and joints of left foot M25.572 ; Bursitis of left foot M77.52 ; Pain in right toe(s) M79.674 ; Pain in left toe(s) M79.675 ; Hallux limitus, left M20.5X2 and Primary osteoarthritis of left foot M19.072 [facility] [address] 12/31/2023 Lorena Black Tinea unguium B35.1 ; Edema, lower extremity R60.0 ; Pain in right toe(s) M79.674 ; Pain in left toe(s) M79.675 ; Ingrown nail L60.0 ; Neuropathy G62.9 and Neuropathic pain M79.2 [facility] [address] 04/18/2024 Lorena Santos Tinea unguium B35.1 ; Edema, lower extremity R60.0 ; Pain in right toe(s) M79.674 ; Pain in left toe(s) M79.675 ; Neuropathy G62.9 and Neuropathic pain M79.[address] [address] 09/11/2023 Lorenaemanuel Santos [address] [address] 04/14/2024 Lorena Santos Assessments Encounter Date Diagnosis (ICD Code) Assessment Notes Treatment Notes Treatment Clinical Notes Section Notes 09/14/2023 Tinea unguium (ICD-10 - B35.1) 09/14/2023 Pain in left foot (ICD-10 - M79.672) 12/31/2023 Tinea unguium (ICD-10 - B35.1) 12/31/2023 Edema, lower extremity (ICD-10 - R60.0) 04/18/2024 Tinea unguium (ICD-10 - B35.1) 04/18/2024 Edema, lower extremity (ICD-10 - R60.0) 04/18/2024 Pain in right toe(s) (ICD-10 - M79.674) 12/31/2023 Pain in right toe(s) (ICD-10 - M79.674) 09/14/2023 Pain in left ankle and joints of left foot (ICD-10 - M25.572) 12/31/2023 Pain in left toe(s) (ICD-10 - M79.675) 09/14/2023 Bursitis of left foot (ICD-10 - M77.52) 04/18/2024 Pain in left toe(s) (ICD-10 - M79.675) 04/18/2024 Neuropathy (ICD-10 - G62.9) 12/31/2023 Ingrown nail (ICD-10 - L60.0) 09/14/2023 Pain in right toe(s) (ICD-10 - M79.674) 09/14/2023 Pain in left toe(s) (ICD-10 - M79.675) 12/31/2023 Neuropathy (ICD-10 - G62.9) 04/18/2024 Neuropathic pain (ICD-10 - M79.2) 12/31/2023 Neuropathic pain (ICD-10 - M79.2) 09/14/2023 Hallux limitus, left (ICD-10 - M20.5X2) 09/14/2023 Primary osteoarthritis of left foot (ICD-10 - M19.072) Plan Of Treatment Pending Test Test Name Order Date X ray : Foot, left 3V 02/14/2013 05672-LTHACQD NAIL, 6 OR MORE 11/08/2012 48191-UKDXCCR NAIL, 6 OR MORE 02/14/2013 99096-HHWRSRU NAIL, 6 OR MORE 05/09/2013 25320-QPPGEJT NAIL, 6 OR MORE 02/04/2011 90377-ZIUKVZV NAIL, 6 OR MORE 04/07/2011 37366-AHRPKPT NAIL, 6 OR MORE 12/29/2011 83667-GCHTIMU NAIL, 6 OR MORE 04/19/2012 27623-SKPBRPS NAIL, 6 OR MORE 08/02/2012 23511-DWBETIP NAIL, 6 OR MORE 08/29/2013 29336-IJSDKON NAIL, 6 OR MORE 06/18/2023 79957-UGCCSYH NAIL, 6 OR MORE 09/14/2023 16733-JUJFRBS NAIL, 6 OR MORE 12/31/2023 04217-ZLBXVEO NAIL, 6 OR MORE 04/18/2024 11012-Kyfodxny Plate 12/31/2023 50140-Uqmkmezw Plate 08/29/2013 46420-Gipfaitp Plate 06/18/2023 87177-Fotggloe Plate 08/02/2012 90674-Qwnabkhe Plate 04/19/2012 51966-Ruujdltu Plate 04/07/2011 57235-DEC 06/23/2011 99099-WBX 04/25/2013 79486- Debride <25 sq cm 09/01/2011 20199- Debride <25 sq cm 06/13/2013 04893- Debride <25 sq cm 07/10/2011 39462-ZRXCTRD SKIN/TISSUE 07/10/2011 86179-OOTRNTL SKIN/TISSUE 08/04/2011 27575-OZRZZDN SKIN/TISSUE 06/02/2013 44211-FXRODOB SKIN/TISSUE 05/09/2013 07536 I&D ABSCESS- SIMPLE,SINGLE 013 Next Appt Details Provider Name:Lorena Santos , 08/01/2024 11:00:00 AM, [address] [place], [address], Insurance Providers Payer Name Payer Address Payer Phone Subscriber Number Group Number Insured Name Patient Relationship to Insured Coverage Start Date Coverage End Date [facility] [employer] Claims [address] [place] [phone] [id number] Zenia Horta Self - patient is the insured Medical (General) History Medical History History ICD Code hypertension cancer CAD (cholesterol) Angina High blood pressure Scarlet fever Measles Mumps Chicken pox Transfusions Surgical History Surgery Date(Month/Year) cancer surgery lung cataract surgery Hospitalization History Reason Date(Month/Year) [facility]- couldn't breathe 01/13/24 [facility] [place]- Blood Transfusion- bleeding in ternally 01/21
--- OUTSIDE RECORDS SUMMARY | 2024-06-24 15:36 | XMS_ITS | Continuity of Care Document ---
Author Organization [facility], [facility] Address [address] [place] [address] Care Team Providers Care Contour Sander Name Role Phone MAXIMILIAN TREVIZO - 2ND FLOOR OTHER KELY RODRIGUEZ Primary Care Provider Assessment No assessment recorded. Plan of Treatment Reminders Order Date Submit Date Provider Last Modified By Organization Details Last Modified Time Details Appointments Acute Rounding Visit 2024 01:21P M Christy Mathias NP Not available Not available Not available Lab None recorded. Referral None recorded. Procedures None recorded. Surgeries None recorded. Imaging None recorded. Medication Orders None recorded. Patient TargetsNo targets recorded. Patient InstructionsNo instructions recorded. Reason for Referral None Reported. Problems Name Problem SNOMED Code Status Onset Date Resolution Date Notes Provider Name and Address Organization Details Recorded Time Atrial fibrillation 90952741 Active 2024 Christy Mathias NP [address] [facility], [address], [place], [address], [facility] [employer] 5 12:50:14 Hyperlipidemia 79443680 Active 2024 Christy Mathias NP [address] [facility], [address], [place], [address], [facility] [employer] 5 12:50:26 Transient cerebral ischemia 345736338 Active 2024 Christy Mathias NP [address] [facility], [address], [place], [address], [facility] [employer] 5 12:50:34 Chronic obstructive pulmonary disease 52145512 Active 2024 Christy Mathias NP [address] [facility], [address], [place], [address], [facility] [employer] 5 12:50:45 Malignant tumor of breast 689113865 Active 2024 Christy Mathias NP [address], [address], [place], [address], [facility] 5 12:51:12 Small cell carcinoma of lung 031457518 Active 2024 Christy Mathias NP [address], [address], [place], [address], [facility] 5 12:51:36 Heart failure 24463384 Active 2024 Christy Mathias NP [address], [address], [place], [address], [facility] 5 12:51:52 Coronary arterioscleros is 57605481 Active 2024 Christy Mathias NP [address], [address], [place], [address], [facility] 5 12:51:59 Hypoxia 318044816 Active 2024 Christy Mathias NP [address], [address], [place], [address], [facility] 5 12:52:05 Vitamin deficiency 15045971 Active 2024 Christy Mathias NP [address], [address], [place], [address], [facility] 5 12:52:36 Diabetes mellitus 48121503 Active 2024 Christy Mathias NP [address], [place], [address], [facility] 5 12:53:02 Problem Notes None recorded. Medical Equipment None Reported. Allergies Allergen ID Allergen Name Allergen Category Reaction Reaction Severity Criticality Documentation Date Start Date Code Code System Note Provider Name and Address Organization Details Recorded Time [id number] 2824e Substance with sulfonami de structure and antibacte rial mechanism of action (substanc e) medicatio n Not available Not available unabletoasse 06/23/2024 58207 8003 SNOMED unkno wn Not Available Not Available Not Available [id number] 29b50 Product containin g angiotens in-conver ting enzyme inhibitor (product) medicatio n other Not available unabletoasse 06/23/2024 93507 009 SNOMED unkno wn Not Available Not Available Not Available Vitals Date Recorded Heart rate Respiratory rate Oxygen saturation Oxygen saturation in Arterial blood by Pulse oximetry Inhaled oxygen flow rate Provider Name and Address Organization Details Last Updated DateTime 5 105 /min 24 /min 84 % 84 % 4 L/min Christy Mathias NP [address] [facility], [address], [place], [address], [employer] [facility] 13:22:13 Social History Question Answer Notes LastModified by Organizat ion Details LastModified Time Tobacco Smoking Status Former Smoker Christy Mathias NP [address] [facility], [address], [place], [address], [facility] 06/23/2024 13:44:47 Do You Have An Advance Directive? No Information not available 06/23/2024 What Is Your Level Of Alcohol Consumption? None Information not available 06/23/2024 What Is Your Code Status? Other Wants To Talk With Daughter About It Information not available 06/23/2024 Where Do You Live? Apartment Senior Housing And Daughter Lives With Her Information not available 06/23/2024 What Was The Date Of Your Most Recent Tobacco Screening? 06/23/2024 Na Information not available 06/23/2024 What Is Your Relationship Status? Information not available 06/23/2024 How Much Tobacco Do You Smoke? No Information not available 06/23/2024 Do You Use Any Illicit Or Recreational Drugs? No Information not available 06/23/2024 Do You Have Any Dietary Restrictions? No Information not available 06/23/2024 Do You Or Have You Ever Used Any Other Forms Of Tobacco Or Nicotine? No Information not available 06/23/2024 Sex: Female Functional Status None recorded. Mental Status None recorded. Family History Nothing Reported Notes:brother chf brother co pd mother ca brother ca son copd Medical History No medical history recorded. Gynecological HistoryNo gynecological history recorded. Obstetrics History GPAL:G 0 P 0 0 0 0 Immunizations Vaccine Type Date Status Note Provider Kiran e and Address Organization Details Recorded Time Tdap 5 completed Ashley [employer] [facility], [facility] 06/23/2024 15:00:48 Pneumococcal conjugate PCV 13 6 completed Ashley Pavel null, [facility] 06/23/2024 15:01:07 Pneumococcal conjugate PCV 13 7 completed Ashley Pavel [facility], [facility] 06/23/2024 15:01:16 pneumococcal polysaccharide PPV23 1 completed Ashley Pavel [facility] 06/23/2024 15:01:31 influenza, unspecified formulation 3 completed [facility] [employer] [facility] 06/23/2024 15:01:47 SARS-COV-2 (COVID-19) vaccine, UNSPECIFIED 1 completed Ashley Pavel [facility] 06/23/2024 15:02:03 SARS-COV-2 (COVID-19) vaccine, UNSPECIFIED 1 completed Ashley Pavel [facility] 06/23/2024 15:02:18 SARS-COV-2 (COVID-19) vaccine, UNSPECIFIED 1 completed Ashley Pavel [facility] 06/23/2024 15:02:29 SARS-COV-2 (COVID-19) vaccine, UNSPECIFIED 2 completed Ashley Pavel [facility] 06/23/2024 15:02:49 SARS-COV-2 (COVID-19) vaccine, UNSPECIFIED 2 completed Ashley Pavel [facility] 06/23/2024 15:02:59 SARS-COV-2 (COVID-19) vaccine, UNSPECIFIED 3 completed Ashley Pavel [facility] 06/23/2024 15:03:08 zoster, unspecified formulation 8 completed [facility] 15:03:25 zoster, unspecified formulation 0 completed [facility] 06/[facility]/2024 15:03:31 zoster, unspecified formulation 0 completed Ashley [facility] 06/23/2024 15:03:38 Past Encounters Encounter ID Performer Location Encounter Start Date Encounter Closed Date Diagnosis/Indication Diagnosis SNOMED-CT Code Diagnosis ICD10 Code Diagnosis Note [id number] Christy Mathias NP [facility] [address] [place] [address] 06/23/2024 12:27:24 06/23/2024 13:47:28 Hypoxia 638862965 R09.02 pt presented to ER with hypoxia and hypercabne a requiring bipap rescuesee hpi for full txcont2.5 liters at baseline for 02albutero l sulfate 90 mcg 2 puff q 6 hrs prnipratro pium albuterol neb q 6 hours prn sobtrelegy ellipta 1 inh qdfluticas one 1 spray each nare qd prnmonitor closely for sob and resp symptoms Heart failure 94852554 I 50.9 with afib as below RV systolic fx (echo 2023)with EF 50-55% severely reduceddiu resed in hosp and on baseline home medsdiltia zem 180 mg o qdmetoprol ol tartate 50 mg po bidfurosem ramya 40 mg po qdpotassiu m 20 meq po every other daymonitor for s/s of HF, vitals Atrial fibrillation 4943 6004 I48.91 with afib with rvr on presentati on to hosp as below RV systolic fx (echo 2023)with EF 50-55% severely reducedsee hpi required cardizem gtt etc.....di uresed in hosp and on baseline home medsdiltia zem 180 mg o qdmetoprol ol tartate 50 mg po bidfurosem ramya 40 mg po qdpotassiu m 20 meq po every other daymonitor for s/s of HFbmp and cbc weekly while here Diabetes mellitus 514000 09 E11.9 no hx of? if BS related to steriods in hospitalre quired ISS in hospital ?possibly related to steriodsch suraj BS bid x 5 days and dcnot dc'd on sliding scale heremonito r Coronary arteriosclerosis 11311399 I25.10 atorvastat in 20 mg po qhsmonitor Vitamin deficiency 46313 002 E56.9 ascorbic ACID 500 MG PO BIDcholeca ciferol 25 mcg qdcyanocob alamin 1000mcg po qdmonitor Transient cerebral ischemia 022829424 G45.9 hx ofon eliquis and atorvastat in already Hyperlipidemia 07649790 E78.5 atorvastat in 20 mg po qhsmonitor Chronic ob structive pulmonary disease 93123497 J44.9 see hypoxia above with acute on chronic dxcpap recommende d but pt unable to use Malignant tumor of breast 186862850 C50.919 hx of breast ca ap lumpectomy 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 Small cell carcinoma of lung 618276214 C34.90 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 and chemothera pyof note: Chest CT showed RLL pulmonary lesion suspicious for neoplasm in [facility] with pulmonolog y oupt Asthenia 34771909 R53.1 PT OT eval and treatsuppo rtive caremonito r [id number] Christy Mathias NP [address] [address] 06/24/2024 13:21:34 06/24/2024 13:27:45 Hypoxia 478463245 R09.02 pt admitted on 06/22 with hypoxia and difficulty breathing not able to maintain o2 sat >84-85% on increased o2 of 4liters and sob.Send to [facility] for sob Health Concerns Section Related Observation LastModified by Organization Detai ls LastModified Time None Recorded Concern Status LastModified by Organization Details LastModified Time None Recorded Payers Encounter Date Sequence Insurance Name Policy Number Policy Smith Covered Member ID Smith Member ID Guarantor Name 06/24/2024 1 [facility] (MEDICAID HMO) Zenia Horta [id number] Zenia Horta Notes Date Note Type Note Provider Name and Address Organization Details Recorded Time 06/24/2024 text/html Pt is seen for a n acute visit.Zenia is seen for o2 sat of 66% this am on 2.5 liters, nursing increased her o2 to 4 liters and sat her up with treatment. She came up to 70s and eventually 80s with interventions over course of morning. She is seen sitting up, feeling very fatigued and states she is short of breath. She is aware her o2 sat is 84-85 % on the 4 liters and not improving much. She is agreeable to sent to ER at [facility] for evaluation and nursing will notify daughter of transfer. Of note: she did not recieve the trelegy this am as it is not in from pharmacy. 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 She is here at [facility] for continued care and rehab. Workup included: Hypoxia r/t CHF rescued with bipap x 2 for sats in the 80s. she was eventually weaned to home 2.5 liters of o2. Chest CT showed RLL pulmonary lesion suspicious for neoplasm, cardiomegaly, bilateral pleural effusion wtih underlying consolidation and pulmonary bullous disease and right upper lobe scarring. Venous U/S of BLE showed no DVT. Resp viral testing neg. She was treated with solumedrol 125 mg iv, lasix 40 mg iv x2, diltiazem 30 mg iv, metoprolol 5 mg IV, required cardizem drip, xopenex 5 mg inhaled, and albuterol.Afib was eventually controlled on metoprolol and oral diltiazem and cont eliquis.Hosp recommends pulmonary outpt followup for R lower lobe lung neoplasm. Seems she has been followed with dr flako carterDM not usually on meds at home, received ISS inpatient,COPD treated with nebs and steriods.Her isosorbide mononitrate was dc'd other meds continued. HERRON: low riskMOLST: pt would like daughter avail to address ROZ, daughter called by nursing Christy Mathias, [employer] OFFIC[employer] [address] [facility], [address], [place], [address], [facility] 06/24/2024 13:27:43 OBGyn Episode No OBEpisode recorded.
--- NOTE | 2024-06-24 16:00 | PM.IMHP ---
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 Patient was discharged from our facility to [facility] 2 days ago. She states that she has felt generally unwell since arriving there. She reports increasing shortness of breath. She states that the facility told her that she had a virus however she can not recall what she was diagnosed with. She is currently on steroids. She was noted to be 70% on room air, prompting the facility to call EMS. On arrival, patient placed on 6L OxyMask satting 95%. ER workup consistent with ongoing pulmonary infiltrates and likely mild pulmonary edema Review of Systems Review of Systems: Denies chest pain Admits shortness of breath on minimal exertion Denies nausea vomiting diarrhea Denies fever chills [facility] Medical History Pleural effusion Atrial fibrillation History of cancer of upper lobe bronchus or lung Age-related osteoporosis without current pathological fracture History of right breast cancer Mesenteric ischemia Diverticular disease Congestive heart failure Degenerative disc disease Coronary artery disease Obesity (BMI 30-39.9) Peripheral vascular disease Hypercholesterolemia TIA (transient ischemic attack) Anemia Breast cancer Small cell lung cancer, right lower lobe HTN (hypertension) COPD (chronic obstructive pulmonary disease) Family History Father Heart disease Mother Heart disease Brother Multiple myeloma Brother Lung cancer Surgical History History of lumpectomy of right breast H/O resection of small bowel Social History Household Members: Children Housing: Apartment Are you a primary neurocritical care physician to a significant other at home: No Do you presently have visiting nurse or other home services: No Alcohol intake: never Patient Tobacco Use Status: Former Tobacco user Tobacco use type: Cigarette Smoked in Last 30 Days: No e-Cigarette/Vaping Use: Never Used Second Hand Smoke Exposure: No Use of substances other than those prescribed or required for medical reasons: No Advance Directives: Yes Advance Directives Information Provided: Yes Advance Directives on File: No Advance Directives Date on File: 01/08/24 Do you have a plan to hurt others: No Plan service: No Current occupational status: retired Current occupational exposures/hazards: No Cognitive needs: Yes (walker) Hearing needs: Yes Vision needs: Yes (glasses) Meds Allergies Allergy/AdvReac Type Severity Reaction Status Date / Time ADONIS Inhibitors Allergy Severe ANGIOEDEMA Verified 06/24/24 12:59 [Adonis Inhibitors] Sulfa (Sulfonamide Allergy Intermediate CHILLS Verified 06/24/24 12:59 Antibiotics) [Sulfa (Sulfonamides)] Active Medications: Current Medications Acetaminophen (Acetaminophen 325 Mg Tablet) 650 mg PO Q6H PRN PRN Reason: Pain, Mild 1-3,fever,headache Calcium Carbonate (Calcium Carbonate 750 Mg Tab.Chew) 750 mg PO Q4H PRN PRN Reason: Heartburn Azithromycin 500 mg/ Sodium (Chloride) 250 mls @ 125 mls/hr IV ONCE ONE Stop: 06/24/24 16:14 Last Admin: 06/24/24 15:13 Dose: 125 mls/hr Magnesium Hydroxide (Milk Of Magnesia 30 Ml Oral.Susp) 30 ml PO DAILY PRN PRN Reason: Constipation Melatonin (Melatonin 3 Mg Tablet) 6 mg PO BEDTIME PRN PRN Reason: Insomnia Ondansetron HCl (Ondansetron Hcl 4 Mg/2 Ml Vial) 4 mg IVPUSH Q8H PRN PRN Reason: Nausea and Vomiting Sodium Chloride (0.9 % Sodium Chloride Flush 3 Ml Syringe) [facility]ations ?Medication ?Instructions ?Recorded ?Confirmed ?Last Taken ?Type ascorbic acid (vitamin C) 500 mg 500 mg PO BID 01/08/24 06/11/24 06/10/24 History tablet (Vitamin C) cholecalciferol (vitamin D3) 25 25 mcg PO DAILY 01/08/24 06/11/24 06/10/24 History mcg (1,000 unit) capsule (Vitamin D3) cyanocobalamin (vitamin B-12) 1,000 mcg PO DAILY 01/08/24 06/11/2406/10/25 History 1,000 mcg tablet (Vitamin B-12) fluticasone propionate 50 1 spray intranasal DAILY PRN 01/08/24 06/11/24 Unknown History mcg/actuation nasal Allergy Symptoms spray,suspension atorvastatin 20 mg tablet 20 mg PO BEDTIME 06/11/24 06/11/24 Unknown History fluticasone fur. 100 mcg-umeclid 1 ea inhalation DAILY 06/11/24 06/11/24 06/10/24 History 62.5 mcg-vilant 25 mcg inhalat.powder (Trelegy Ellipta) Physical Exam Vital Signs and Narrative: Vital Signs: Last Vital Signs Temp 100.3 F 06/24/24 12:57 Pulse 88 06/24/24 13:22 Resp 23 H 06/24/24 13:22 BP 123/47 L 06/24/24 15:06 Pulse Ox 95 06/24/24 13:12 O2 Del Method Oxymask 06/24/24 13:12 O2 Flow Rate 6 06/24/24 13:12 BMI result Body Mass Index 27.4 Const: Other: Awake alert speaking in short sentence Resp: Other: Diminished throughout with scant bilateral crackles lower 2/3 Cardio: Other: No S4; positive S1-S2; no S3 murmurs rubs or gallops GI: Other: Soft nontender nondistended normoactive bowel sounds Extrem: Other: No edema bilateral Results Labs 06/24/24 13:20 06/24/24 13:20 Labs: Laboratory Results - last 24 hr 06/24/24 06/24/24 06/24/24 13:20 13:26 14:11 MCV 93.6 MCH 27.8 MCHC 29.7 L RDW 15.5 Plt Count 132 L MPV 12.8 H Immature Gran % (Auto) 0.6 H Neut % (Auto) 81.7 H Lymph % (Auto) 3.6 L [place] % (Auto) 12.8 H Eos % (Auto) 1.2 Baso % (Auto) 0.1 Lymph # (Auto) 0.5 L [place] # (Auto) 1.6 H Eos # (Auto) 0.2 Baso # (Auto) 0.0 Abs Immat Gran (auto) 0.08 H Absolute Neuts (auto) 10.1 H Absolute Nucleated RBC 0.000 Nucleated RBC % (auto) 0.0 Smear Tech's Comments VERIFIED VBG pH 7.39 VBG pCO2 81 VBG pO2 50 VBG HCO3 50 H VBG O2 Saturation 81.0 VBG Base Excess 20.4 Anion Gap 12 Estim Creat Clear Calc 48.1 Estimated GFR > 60 Random Glucose 191 H Lactic Acid 1.0 Calcium 8.3 L Magnesium 2.1 Total Bilirubin 1.6 H AST 34 H ALT 12 Alkaline Phosphatase 45 Troponin I High Sens 35.9 H D B-Natriuretic Peptide 342 H Total Protein 6.2 L Albumin 3.1 L Influenza Type A (PCR) NEGATIVE Influenza Type B (PCR) NEGATIVE RSV RNA Qual (PCR) NEGATIVE SARS-CoV-2 RNA (RT-PCR) NEGATIVE Imaging Radiologist's Impressions: Impressions Chest X-Ray 06/24/24 13:01 IMPRESSION: Cardiomegaly and pulmonary vascular congestion. Airspace opacities in the right mid to lower lung zone may represent pulmonary edema or pneumonia. Electronically signed by: Navin Lassiter MD 06/24/2024 02:12 PM [facility] Assessment and Plan (1) Pneumonia: Qualifiers: Pneumonia type: due to unspecified organism Laterality: right Lung location: middle lobe of lung Qualified Code(s): J18.9 - Pneumonia, unspecified organism Status: Acute (2) Acute and chronic respiratory failure with hypoxia: Status: Acute (3) Type 2 diabetes mellitus with hyperglycemia: Qualifiers: Diabetes mellitus meterman insulin use: unspecified meterman insulin use status Qualified Code(s): E11.65 - Type 2 diabetes mellitus with hyperglycemia Status: Acute Plan 89-year-old female with PMHX significant for atrial fibrillation on Eliquis, diabetes, osteopenia, peripheral vascular disease, hypertension, COPD on 2.5 L via nasal cannula, breast cancer (s/p lumpectomy and radiation), CAD, 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 Recently admitted for acute respiratory failure secondary to right lower lobe infiltrate. Presents today with worsening shortness of breath 1. Right lower lobe/right middle lobe pneumonia -ceftriaxone/azithromycin (1) -titrate O2 to maintain sats greater than or equal to 90% -Re eval in a.m.; consider pulmonary consultation 2. Acute on chronic CHF -BNP at baseline -repeat echo in a.m. 3. Chronic atrial fibrillation -acceptable control on current therapies -adjust as indicated -continue Eliquis 4. Diabetes type 2 -acceptable control apparently with diet -lispro correctional scale -at therapies as clinically indicated Eliquis DNR DNI Patient will require at least 2 midnights going forward of inpatient stay to treat pneumonia that has failed outpatient therapies. Can not be achieved in a less acute setting Quality Stroke Does the patient have a stroke diagnosis?: No VTE Prior VTE?: No VTE Risk Level:: Medical - moderate - high VTE Device Contraindication: Treatment Not Indicated VTE Drug Contraindication: N/A - Med Ordered
--- NOTE | 2024-06-24 16:15 | PHA.MEDREC ---
Pharmacy Consult ? Medication Reconciliation Pharmacy has completed the medication reconciliation. Spoke to Frances at [facility] via phone and she read off the med list. Patient is no longer taking isosorbide. Potassium 20 mEq packet is taken every 2 days and last dose was today. Last dose of other meds are also today 06/24/24 except atorvastation (taken at bedtime).
[2024-06-24] MEDS: 0.9 % Sodium Chloride Flush 3 ML SYRINGE IVFLUSH ×2 (17:20→23:40)
--- NOTE | 2024-06-24 18:25 | PC.NURSE ---
Pt comes to ER today c/o multiple days of SOB - [place] [facility] [facility]. pt coughing up thick dark brown with pink frothy sputum - sent to lab for culture. pt arrives with multiple hematomas some covered with tape that have adhered to her skin. pt febrile upon arrival to ER with rectal temp 100.3, she was hypoxic in the 70s for EMS and was given a duoneb on 8L. pt tolerating oxymask at 6L at this time. other VSS. 20G in LAV. pt has poor recall of how long she was at the facility and report she was left in stool . pt coccyx red/blanching. pt is a&ox3 but forgetful. reports she normally ambulates with a rolling walker but has not gotten up since being at [facility] .
--- NOTE | 2024-06-24 19:30 | PC.NURSE ---
Report taken from Malou LABOY, assumed care of pt at this time. Pt resting in bed eyes closed easily awoken. Denies pain. Skin pwd respirations even unlabored. Afib on monitor. SpO2 95% on 5L NC, pt is a mouth breather. Purewick in place. Awaiting bed assignment for admission, aware of plan of care.
[2024-06-24] MEDS: Ascorbic Acid 500 MG TABLET PO (20:49)
[2024-06-24] MEDS: Apixaban 5 MG TABLET PO (20:49)
[2024-06-24] MEDS: Metoprolol Tartrate 50 MG TABLET PO (20:49)
[2024-06-24] MEDS: Atorvastatin Calcium 20 MG TABLET PO (20:49)
--- NOTE | 2024-06-24 22:01 | PC.NURSE ---
Pt resting in bed eyes closed, NAD respirations even unlabored, Afib on monitor. Awaiting bed assignment for admission, will continue to monitor.
[2024-06-25] VITALS (9 sets, daily range): BP systolic 118–152; BP diastolic 44–67; PULSE 68–97; RESP 15–24; TEMP 36.4–37.4; O2SAT 94–99; BMI 30.4
--- NOTE | 2024-06-25 02:05 | PC.NURSE ---
Pt continues to rest in bed eyes closed, NAD. Awaiting bed assignment for admission, will continue to monitor.
--- NOTE | 2024-06-25 03:50 | PC.NURSE ---
Pt moved into hospital bed, repositioned for comfort, offers no complaints. VSS. Continues to await bed assignment for admission.
[2024-06-25 06:11] LABS: Basophils Percent Auto 0.1 % (0-2); Hemoglobin 11.6 g/dl (12.0-16.0); Imm Gran Abs Auto 0.06 X10*3/uL (0.00-0.03); Imm Gran Pct Auto 0.9 % (0.0-0.4); Lymphocytes Absolute Auto 0.2 X10*3/uL (1.2-4.9); Lymphocytes Percent Auto 2.9 % (20-40); MANUAL DIFF FLAG SCAN; Mean Corpuscular Hemoglobin 27.5 pg (27.0-33.0); Mean Corpuscular Volume 94.8 fL (80.0-98.0); Mean Platelet Volume 12.4 fL (9.4-12.3); Monocytes Absolute Auto 0.2 X10*3/uL (0.1-1.2); Monocytes Percent Auto 2.9 % (2-11); Neutrophils Absolute Auto 6.5 x10*3/uL (2.0-8.3); Neutrophils Percent Auto 93.2 % (45-73); Platelet Count 132 X10*3/uL (160-400); Red Blood Count 4.22 X10*6/uL (4.20-5.50); Red Cell Distribution Width 15.4 % (11.0-16.0); SCAN SMEAR FLAG 1
[2024-06-25 06:28] LABS: SLIDE REVIEW VERIFIED
[2024-06-25 06:39] LABS: Alanine Aminotransferase 12 U/L (0-31); Albumin Level 3.1 g/dL (3.5-5.0); Alkaline Phosphatase 43 U/L (39-117); Anion Gap 12 (12-20); Aspartate Amino Transferase 30 U/L (5-31); Blood Urea Nitrogen 44 mg/dL (9-16); Calcium 8.5 mg/dL (8.4-10.2); Carbon Dioxide 41 mmol/L (22-29); Chloride 96 mmol/L (96-108); Creatinine Clr Calc Pharmacy 38.4; Estimated Glomerular Filt Rate 50; Glucose Random 257 mg/dL (60-115); Potassium 3.9 mmol/L (3.3-5.1); Sodium 145 mmol/L (135-145); Total Protein 6.3 g/dL (6.5-8.0)
--- NOTE | 2024-06-25 07:20 | PC.NURSE ---
Pt A+Ox3, speaking full sentences; LS dim/coarse throughout, denies pain at this time; awaiting bed for admission
[2024-06-25] MEDS: Fluticasone/Umeclidinium/Vilanterol 100/62.5/25 BLST.W.DEV 1 PUFF INHALE ×2 (07:34→08:24)
[2024-06-25] MEDS: Metoprolol Tartrate 50 MG TABLET PO ×2 (08:21→21:12)
[2024-06-25] MEDS: Cyanocobalamin (Vitamin B-12) 1,000 MCG TABLET 1000 MCG PO (08:21)
[2024-06-25] MEDS: Apixaban 5 MG TABLET PO ×2 (08:21→21:12)
[2024-06-25] MEDS: Ascorbic Acid 500 MG TABLET PO ×2 (08:22→21:12)
[2024-06-25] MEDS: dilTIAZem HCL CD 180 MG CAP.ER.24H PO (08:22)
[2024-06-25] MEDS: Furosemide 40 MG TABLET PO (08:22)
[2024-06-25] MEDS: Cholecalciferol (Vitamin D3) 25 MCG TABLET PO (08:22)
--- NOTE | 2024-06-25 09:00 | MHC.EDTECH ---
patient had to use the bathroom patient is a one assist to the camode patient had a lg Bowel movement Nurse is aware
[2024-06-25] MEDS: cefTRIAXone sodium 1 GM VIAL IVPUSH (13:51)
--- NOTE | 2024-06-25 14:58 | P.PNIM_ITS ---
Subjective Subjective Date of Service: 06/25/24 Interval History: No acute issues overnight. Notes improvement since admission Review of Systems Denies chest pain Admits shortness of breath on minimal exertion that has improved since admission Denies nausea vomiting diarrhea Denies fever chills Physical Exam 2 Vital Signs: Vital Signs: Last Vital Signs Temp 97.6 F 06/25/24 11:31 Pulse 71 06/25/24 11:31 Resp 23 H 06/25/24 11:31 BP 128/62 06/25/24 11:31 Pulse Ox 99 06/25/24 11:31 O2 Del Method Oxymask 06/25/24 11:31 O2 Flow Rate 6 06/25/24 11:31 BMI result Body Mass Index 27.4 Const: Other: Awake alert speaking in short sentence Resp: Other: Improved aeration to bases with scant bilateral crackles lower 2/3 Cardio: Other: No S4; positive S1-S2; no S3 murmurs rubs or gallops GI: Other: Soft nontender nondistended normoactive bowel sounds Extrem: Other: No edema bilateral Objective Data Active Medications Acetaminophen (Acetaminophen 325 Mg Tablet) 650 mg PO Q6H PRN PRN Reason: Pain, Mild 1-3,fever,headache Albuterol Sulfate (Albuterol Sulfate 90 Mcg 8 Gm Inhaler) 2 puff INHALE Q6H PRN PRN Reason: for wheezing Apixaban (Apixaban 5 Mg Tablet) 5 mg PO BID [facility] Last Admin: 06/25/24 08:21 Dose: 5 mg Documented By: JOB Ascorbic Acid (Ascorbic Acid 500 Mg Tablet) 500 mg PO BID [facility] Last Admin: 06/25/24 08:22 Dose: 500 mg Documented By: JOB Atorvastatin Calcium (Atorvastatin Calcium 20 Mg Tablet) 20 mg PO BEDTIME [facility] Last Admin: 06/24/24 20:49 Dose: 20 mg Documented By: LOCO Calcium Carbonate (Calcium Carbonate 750 Mg Tab.Chew) 750 mg PO Q4H PRN PRN Reason: Heartburn Ceftriaxone Sodium (Ceftriaxone Sodium 1 Gm Vial) 1 gm IVPUSH Q24H [facility] Last Admin: 06/25/24 13:51 Dose: 1 gm Documented By: JOB Cyanocobalamin (Cyanocobalamin (Vitamin B-12) 1,000 Mcg Tablet) 1,000 mcg PO DAILY [facility] Last Admin: 06/25/24 08:21 Dose: 1,000 mcg Documented By: JOB Diltiazem HCl (Diltiazem Hcl Cd 180 Mg Cap.Er.24h) 180 mg PO DAILY [facility]; Protocol Last Admin: 06/25/24 08:22 Dose: 180 mg Documented By: JOB Fluticasone Propionate (Fluticasone Propionate Nasal 16 Gm [place]) 1 spray NOSTRIL-B DAILY PRN PRN Reason: Allergy Symptoms Fluticasone/Umeclidinium/Vilanterol (Fluticasone/Umeclidinium/Vilanterol 100/62.5/25 Blst.W.Dev) 1 puff INHALE RDAILY [facility] Last Admin: 06/25/24 08:24 Dose: 1 puff Documented By: JOB Furosemide (Furosemide 40 Mg Tablet) 40 mg PO DAILY [facility]; Protocol Last Admin: 06/25/24 08:22 Dose: 40 mg Documented By: JOB Azithromycin 500 mg/ Sodium (Chloride) 250 mls @ 125 mls/hr IV Q24H [facility] Magnesium Hydroxide (Milk Of Magnesia 30 Ml Oral.Susp) 30 ml PO DAILY PRN PRN Reason: Constipation Melatonin (Melatonin 3 Mg Tablet) 6 mg PO BEDTIME PRN PRN Reason: Insomnia Metoprolol Tartrate (Metoprolol Tartrate 50 Mg Tablet) 50 mg PO BID [facility]; Protocol Last Admin: 06/25/24 08:21 Dose: 50 mg Documented By: JOB Ondansetron HCl (Ondansetron Hcl 4 Mg/2 Ml Vial) 4 mg IVPUSH Q8H PRN PRN Reason: Nausea and Vomiting Potassium Chloride (Potassium Chloride Packet 20 Meq Packet) 20 meq PO Q48H [facility] Sodium Chloride (0.9 % Sodium Chloride Flush 3 Ml Syringe) 3 ml IVFLUSH QSHIFT [facility] Last Admin: 06/25/24 11:11 Dose: Not Given Documented By: JOB Non-Admin Reason: See Note Vitamin D (Cholecalciferol (Vitamin D3) 25 Mcg Tablet) 25 mcg PO DAILY [facility] Last Admin: 06/25/24 08:22 Dose: 25 mcg Documented By: JOB Labs 06/25/24 05:25 06/25/24 05:25 Labs: Laboratory Results - last 24 hr 06/25/24 05:25 MCV 94.8 MCH 27.5 MCHC 29.0 L RDW 15.4 Plt Count 132 L MPV 12.4 H Immature Gran % (Auto) 0.9 H Neut % (Auto) 93.2 H Lymph % (Auto) 2.9 L [place] % (Auto) 2.9 Eos % (Auto) 0.0 Baso % (Auto) 0.1 Lymph # (Auto) 0.2 L [place] # (Auto) 0.2 Eos # (Auto) 0.0 Baso # (Auto) 0.0 Abs Immat Gran (auto) 0.06 H Absolute Neuts (auto) 6.5 Absolute Nucleated RBC 0.000 Nucleated RBC % (auto) 0.0 Smear Tech's Comments VERIFIED Anion Gap 12 Estim Creat Clear Calc 38.4 Estimated GFR 50 Random Glucose 257 H Calcium 8.5 Total Bilirubin 1.0 AST 30 ALT 12 Alkaline Phosphatase 43 Total Protein 6.3 L Albumin 3.1 L Microbiology Microbiology Results: Microbiology 06/24/24 13:22 Gram Stain - Preliminary Sputum - Expectorated Sputum Culture - Preliminary Culture in progress. 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 Recently admitted for acute respiratory failure secondary to right lower lobe infiltrate. Presents today with worsening shortness of breath 1. Right lower lobe/right middle lobe pneumonia -ceftriaxone/azithromycin (2) -titrate O2 to maintain sats greater than or equal to 90% -pulse dose methylprednisolone 2. Acute on chronic CHF -BNP at baseline -repeat echo in a.m. 3. Chronic atrial fibrillation -acceptable control on current therapies -adjust as indicated -continue Eliquis 4. Diabetes type 2 -acceptable control apparently with diet -lispro correctional scale -at therapies as clinically indicated Eliquis DNR DNI Patient will require at least 2 midnights going forward of inpatient stay to treat pneumonia that has failed outpatient therapies. Can not be achieved in a less acute setting Quality Stroke Does the patient have a stroke diagnosis?: No VTE Prior VTE?: No VTE Risk Level:: Medical - moderate - high VTE Device Contraindication: Treatment Not Indicated VTE Drug Contraindication: N/A - Med Ordered
[2024-06-25] MEDS: Azithromycin 500 MG in 0.9 % Sodium Chloride 250 ML 125 MG IV (15:07)
[2024-06-25 16:38] LABS: Glucose, Whole Blood 272 mg/dL (60-115)
[2024-06-25] MEDS: 0.9 % Sodium Chloride Flush 3 ML SYRINGE IVFLUSH ×2 (17:03→21:13)
[2024-06-25] MEDS: methylPREDNISolone Sod Succ 125 MG/2 ML VIAL 60 MG IVPUSH (18:33)
[2024-06-25] MEDS: Atorvastatin Calcium 20 MG TABLET PO (21:12)
[2024-06-26] MEDS: methylPREDNISolone Sod Succ 125 MG/2 ML VIAL 60 MG IVPUSH ×4 (00:59→17:50)
[2024-06-26 04:00] VITALS: BP 106/56; PULSE 94; RESP 16; TEMP 36.4; O2SAT 96
[2024-06-26 06:30] LABS: Hematocrit 38.9 % (37.0-47.0); Hemoglobin 11.5 g/dl (12.0-16.0); Mean Corpuscular HGB Conc 29.6 g/dl (31.0-35.0); Mean Corpuscular Hemoglobin 27.6 pg (27.0-33.0); Mean Corpuscular Volume 93.5 fL (80.0-98.0); Mean Platelet Volume 12.4 fL (9.4-12.3); Platelet Count 147 X10*3/uL (160-400); Red Blood Count 4.16 X10*6/uL (4.20-5.50); Red Cell Distribution Width 15.1 % (11.0-16.0); White Blood Count 15.3 X10*3/uL (4.8-10.8)
[2024-06-26 06:46] LABS: Alanine Aminotransferase 13 U/L (0-31); Albumin Level 3.2 g/dL (3.5-5.0); Alkaline Phosphatase 40 U/L (39-117); Anion Gap 13 (12-20); Aspartate Amino Transferase 26 U/L (5-31); Bilirubin Total 0.8 mg/dL (0.0-1.0); Blood Urea Nitrogen 57 mg/dL (9-16); Calcium 8.3 mg/dL (8.4-10.2); Carbon Dioxide 36 mmol/L (22-29); Chloride 98 mmol/L (96-108); Creatinine Clr Calc Pharmacy 34.4; Estimated Glomerular Filt Rate 49; Glucose Random 273 mg/dL (60-115); Potassium 3.6 mmol/L (3.3-5.1); Sodium 143 mmol/L (135-145); Total Protein 6.3 g/dL (6.5-8.0)
[2024-06-26 07:22] LABS: SLIDE REVIEW MANUAL DIFF
[2024-06-26 07:25] LABS: Band Neutrophils Percent 9 % (3-5); Lymphocytes Absolute Manual 0.2 X10*3/uL (1.2-4.9); Lymphocytes Percent Manual 1 % (20-40); Monocytes Absolute Manual 0.3 X10*3/uL (0.1-1.2); Monocytes Percent Manual 2 % (2-11); Neutrophils Absolute Manual 14.8 X10*3/uL (2.0-8.3); Neutrophils Percent Manual 88 % (45-73)
[2024-06-26 07:28] LABS: Burr Cells 1+ (0-2) /OIF; Platelet Estimate NORMAL (NORMAL); Platelet Morphology Comment NORMAL; RBC Morphology NOTED; Schistocytes 1+ (0-2) /OIF
[2024-06-26 07:41] VITALS: BP 138/63; PULSE 70; RESP 18; TEMP 36.5; O2SAT 96
[2024-06-26 07:56] LABS: Glucose, Whole Blood 239 mg/dL (60-115)
[2024-06-26] MEDS: Potassium Chloride Packet 20 MEQ PACKET PO (08:34)
[2024-06-26] MEDS: Furosemide 40 MG TABLET PO (08:35)
[2024-06-26] MEDS: Metoprolol Tartrate 50 MG TABLET PO ×2 (08:35→20:51)
[2024-06-26] MEDS: Cyanocobalamin (Vitamin B-12) 1,000 MCG TABLET 1000 MCG PO (08:35)
[2024-06-26] MEDS: Apixaban 5 MG TABLET PO ×2 (08:35→20:52)
[2024-06-26] MEDS: Ascorbic Acid 500 MG TABLET PO ×2 (08:35→20:52)
[2024-06-26] MEDS: dilTIAZem HCL CD 180 MG CAP.ER.24H PO (08:35)
[2024-06-26] MEDS: Cholecalciferol (Vitamin D3) 25 MCG TABLET PO (08:35)
[2024-06-26] MEDS: 0.9 % Sodium Chloride Flush 3 ML SYRINGE IVFLUSH ×3 (08:36→20:52)
--- NOTE | 2024-06-26 13:10 | P.PNIM_ITS ---
Subjective Subjective Date of Service: 06/26/24 Interval History: Continues to improve slowly. Appears much more comfortable in bed Review of Systems Denies chest pain Admits shortness of breath on minimal exertion that has improved since admission Denies nausea vomiting diarrhea Denies fever chills Physical Exam 2 Vital Signs: Vital Signs: Last Vital Signs Temp 97.7 F 06/26/24 07:41 Pulse 70 06/26/24 07:41 Resp 18 06/26/24 07:41 BP 138/63 06/26/24 07:41 Pulse Ox 96 06/26/24 07:41 O2 Del Method Oxymask 06/26/24 07:41 O2 Flow Rate 6 06/26/24 07:41 BMI result Body Mass Index 30.4 Const: Other: Awake alert speaking in short sentence Resp: Other: Improved aeration to bases with scant bilateral crackles lower 2/3 Cardio: Other: No S4; positive S1-S2; no S3 murmurs rubs or gallops GI: Other: Soft nontender nondistended normoactive bowel sounds Extrem: Other: No edema bilateral Objective Data Active Medications Acetaminophen (Acetaminophen 325 Mg Tablet) 650 mg PO Q6H PRN PRN Reason: Pain, Mild 1-3,fever,headache Albuterol Sulfate (Albuterol Sulfate 90 Mcg 8 Gm Inhaler) 2 puff INHALE Q6H PRN PRN Reason: for wheezing Apixaban (Apixaban 5 Mg Tablet) 5 mg PO BID [facility] Last Admin: 06/26/24 08:35 Dose: 5 mg Documented By: BARBARA Ascorbic Acid (Ascorbic Acid 500 Mg Tablet) 500 mg PO BID [facility] Last Admin: 06/26/24 08:35 Dose: 500 mg Documented By: BARBARA Atorvastatin Calcium (Atorvastatin Calcium 20 Mg Tablet) 20 mg PO BEDTIME [facility] Last Admin: 06/25/24 21:12 Dose: 20 mg Documented By: RAOUL Calcium Carbonate (Calcium Carbonate 750 Mg Tab.Chew) 750 mg PO Q4H PRN PRN Reason: Heartburn Ceftriaxone Sodium (Ceftriaxone Sodium 1 Gm Vial) 1 gm IVPUSH Q24H [facility] Last Admin: 06/25/24 13:51 Dose: 1 gm Documented By: JOB Cyanocobalamin (Cyanocobalamin (Vitamin B-12) 1,000 Mcg Tablet) 1,000 mcg PO DAILY [facility] Last Admin: 06/26/24 08:35 Dose: 1,000 mcg Documented By: BARBARA Diltiazem HCl (Diltiazem Hcl Cd 180 Mg Cap.Er.24h) 180 mg PO DAILY [facility]; Protocol Last Admin: 06/26/24 08:35 Dose: 180 mg Documented By: BARBARA Fluticasone Propionate (Fluticasone Propionate Nasal 16 Gm [place]) 1 spray NOSTRIL-B DAILY PRN PRN Reason: Allergy Symptoms Fluticasone/Umeclidinium/Vilanterol (Fluticasone/Umeclidinium/Vilanterol 100/62.5/25 Blst.W.Dev) 1 puff INHALE RDAILY [facility] Last Admin: 06/25/24 08:24 Dose: 1 puff Documented By: JOB Furosemide (Furosemide 40 Mg Tablet) 40 mg PO DAILY [facility]; Protocol Last Admin: 06/26/24 08:35 Dose: 40 mg Documented By: BARBARA Azithromycin 500 mg/ Sodium (Chloride) 250 mls @ 125 mls/hr IV Q24H [facility] Last Infusion: 06/25/24 17:20 Dose: Infused Documented By: BARBARA Magnesium Hydroxide (Milk Of Magnesia 30 Ml Oral.Susp) 30 ml PO DAILY PRN PRN Reason: Constipation Melatonin (Melatonin 3 Mg Tablet) 6 mg PO BEDTIME PRN PRN Reason: Insomnia Methylprednisolone Sodium Succinate (Methylprednisolone Sod Succ 125 Mg/2 Ml Vial) 60 mg IVPUSH Q6H [facility] Last Admin: 06/26/24 12:49 Dose: 60 mg Documented By: BARBARA Metoprolol Tartrate (Metoprolol Tartrate 50 Mg Tablet) 50 mg PO BID [facility]; Protocol Last Admin: 06/26/24 08:35 Dose: 50 mg Documented By: BARBARA Ondansetron HCl (Ondansetron Hcl 4 Mg/2 Ml Vial) 4 mg IVPUSH Q8H PRN PRN Reason: Nausea and Vomiting Potassium Chloride (Potassium Chloride Packet 20 Meq Packet) 20 meq PO Q48H [facility] Last Admin: 06/26/24 08:34 Dose: 20 meq Documented By: BARBARA Sodium Chloride (0.9 % Sodium Chloride Flush 3 Ml Syringe) 3 ml IVFLUSH QSHIFT [facility] Last Admin: 06/26/24 08:36 Dose: 3 ml Documented By: BARBARA Vitamin D (Cholecalciferol (Vitamin D3) 25 Mcg Tablet) 25 mcg PO DAILY [facility] Last Admin: 06/26/24 08:35 Dose: 25 mcg Documented By: BARBARA Labs 06/26/24 06:02 06/26/24 06:02 Labs: Laboratory Results - last 24 hr 06/25/24 06/26/24 06/26/24 16:30 06:02 07:45 MCV 93.5 MCH 27.6 MCHC 29.6 L RDW 15.1 Plt Count 147 L MPV 12.4 H Immature Gran % (Auto) Cancelled Neut % (Auto) Cancelled Lymph % (Auto) Cancelled [place] % (Auto) Cancelled Eos % (Auto) Cancelled Baso % (Auto) Cancelled Lymph # (Auto) Cancelled [place] # (Auto) Cancelled Eos # (Auto) Cancelled Baso # (Auto) Cancelled Abs Immat Gran (auto) Cancelled Absolute Neuts (auto) Cancelled Absolute Nucleated RBC 0.000 Nucleated RBC % (auto) 0.0 Neutrophils % (Manual) 88 H Band Neutrophils % 9 H Lymphocytes % (Manual) 1 L Monocytes % (Manual) 2 Abs Neuts (Manual) 14.8 H Lymphocytes # (Manual) 0.2 L Monocytes # (Manual) 0.3 Platelet Estimate NORMAL Plt Morphology Comment NORMAL RBC Morphology NOTED Loren Cells 1+ (0-2) Schistocytes 1+ (0-2) Smear Tech's Comments MANUAL DIFF Anion Gap 13 Estim Creat Clear Calc 34.4 Estimated GFR 49 POC Glucose 272 H 239 H Random Glucose 273 H Calcium 8.3 L Total Bilirubin 0.8 AST 26 ALT 13 Alkaline Phosphatase 40 Total Protein 6.3 L Albumin 3.2 L Microbiology Microbiology Results: Microbiology 06/24/24 13:22 Gram Stain - Final Sputum - Expectorated Sputum Culture - Final 06/24/24 14:11 Blood Culture - Preliminary Blood - Venous No growth after 24 hours. 06/24/24 14:11 Blood Culture - Preliminary Blood - Venous No growth after 24 hours. 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 Recently admitted for acute respiratory failure secondary to right lower lobe infiltrate. Presents today with worsening shortness of breath 1. Right lower lobe/right middle lobe pneumonia -ceftriaxone/azithromycin (3) -titrate O2 to maintain sats greater than or equal to 90% -pulse dose methylprednisolone 2. Acute on chronic CHF -BNP at baseline -repeat echo as outpatient 3. Chronic atrial fibrillation -acceptable control on current therapies -adjust as indicated -continue Eliquis 4. Diabetes type 2 -acceptable control apparently with diet -lispro correctional scale -at therapies as clinically indicated Eliquis DNR DNI Patient will require at least 2 midnights going forward of inpatient stay to treat pneumonia that has failed outpatient therapies. Can not be achieved in a less acute setting Quality Stroke Does the patient have a stroke diagnosis?: No VTE Prior VTE?: No VTE Risk Level:: Medical - moderate - high VTE Device Contraindication: Treatment Not Indicated VTE Drug Contraindication: N/A - Med Ordered
[2024-06-26] MEDS: cefTRIAXone sodium 1 GM VIAL IVPUSH (13:34)
[2024-06-26 15:25] VITALS: BP 130/57; PULSE 63; RESP 15; TEMP 36.8; O2SAT 94
[2024-06-26] MEDS: Azithromycin 500 MG in 0.9 % Sodium Chloride 250 ML 125 MG IV (15:46)
--- NOTE | 2024-06-26 15:54 | MHC.CM.PN ---
CM SPOKE TO PTS DAUGHTERGRIFFIN, SHE REPORTS PT WAS AT [facility] FOR STR [employer], BUT ONLY FOR TWO DAYS SO WILL NEED TO RETURN TO STR SHE LIVES WITH DAUGHTER AND HAS NO SERVICES AT BASELINE SHE HAS A WALKER AND OXYGEN FROM [facility] HCP ON FILE PCP: KELY RODRIGUEZ IMM DELIVERED DCP: RETURN TO STR, [facility]REFERRED BLS TRANSPORT
[2024-06-26] MEDS: hydrOXYzine HCL 25 MG TABLET PO (17:50)
[2024-06-26 19:14] VITALS: BP 126/78; PULSE 75; RESP 16; TEMP 36.4; O2SAT 91
[2024-06-26 20:51] VITALS: BP 126/78; PULSE 75
[2024-06-26] MEDS: Atorvastatin Calcium 20 MG TABLET PO (20:52)
[2024-06-27] VITALS (10 sets, daily range): BP systolic 129–149; BP diastolic 53–67; PULSE 62–85; RESP 16–18; TEMP 36.3–36.9; O2SAT 77–95
[2024-06-27] MEDS: methylPREDNISolone Sod Succ 125 MG/2 ML VIAL 60 MG IVPUSH ×4 (00:36→18:10)
[2024-06-27 07:02] LABS: Basophils Percent Auto 0.2 % (0-2); Hematocrit 39.9 % (37.0-47.0); Hemoglobin 11.4 g/dl (12.0-16.0); Imm Gran Abs Auto 0.14 X10*3/uL (0.00-0.03); Imm Gran Pct Auto 0.9 % (0.0-0.4); Lymphocytes Absolute Auto 0.3 X10*3/uL (1.2-4.9); Lymphocytes Percent Auto 1.9 % (20-40); MANUAL DIFF FLAG SCAN; Mean Corpuscular HGB Conc 28.6 g/dl (31.0-35.0); Mean Corpuscular Hemoglobin 27.3 pg (27.0-33.0); Mean Corpuscular Volume 95.7 fL (80.0-98.0); Mean Platelet Volume 12.9 fL (9.4-12.3); Monocytes Absolute Auto 0.7 X10*3/uL (0.1-1.2); Monocytes Percent Auto 4.6 % (2-11); Neutrophils Absolute Auto 14.6 x10*3/uL (2.0-8.3); Neutrophils Percent Auto 92.4 % (45-73); Platelet Count 142 X10*3/uL (160-400); Red Blood Count 4.17 X10*6/uL (4.20-5.50); Red Cell Distribution Width 15.2 % (11.0-16.0); SCAN SMEAR FLAG 1; White Blood Count 15.8 X10*3/uL (4.8-10.8)
[2024-06-27 07:11] LABS: Alanine Aminotransferase 17 U/L (0-31); Albumin Level 3.3 g/dL (3.5-5.0); Alkaline Phosphatase 46 U/L (39-117); Anion Gap 11 (12-20); Aspartate Amino Transferase 25 U/L (5-31); Bilirubin Total 0.8 mg/dL (0.0-1.0); Blood Urea Nitrogen 64 mg/dL (9-16); Calcium 8.4 mg/dL (8.4-10.2); Carbon Dioxide 39 mmol/L (22-29); Chloride 98 mmol/L (96-108); Creatinine Clr Calc Pharmacy 31.2; Estimated Glomerular Filt Rate 44; Glucose Random 253 mg/dL (60-115); Potassium 4.1 mmol/L (3.3-5.1); Sodium 144 mmol/L (135-145); Total Protein 6.2 g/dL (6.5-8.0)
[2024-06-27] MEDS: Fluticasone/Umeclidinium/Vilanterol 100/62.5/25 BLST.W.DEV 1 PUFF INHALE (08:03)
[2024-06-27 08:30] LABS: SLIDE REVIEW VERIFIED
[2024-06-27] MEDS: 0.9 % Sodium Chloride Flush 3 ML SYRINGE IVFLUSH ×3 (09:28→21:01)
[2024-06-27] MEDS: Cyanocobalamin (Vitamin B-12) 1,000 MCG TABLET 1000 MCG PO (09:29)
[2024-06-27] MEDS: Metoprolol Tartrate 50 MG TABLET PO ×2 (09:29→21:00)
[2024-06-27] MEDS: Apixaban 5 MG TABLET PO ×2 (09:29→21:01)
[2024-06-27] MEDS: Cholecalciferol (Vitamin D3) 25 MCG TABLET PO (09:29)
[2024-06-27] MEDS: dilTIAZem HCL CD 180 MG CAP.ER.24H PO (09:29)
[2024-06-27] MEDS: Furosemide 40 MG TABLET PO (09:29)
[2024-06-27] MEDS: Ascorbic Acid 500 MG TABLET PO ×2 (09:29→21:01)
--- NOTE | 2024-06-27 13:07 | HO.PM.IMPN ---
Subjective Subjective Date of Service: 06/27/24 Interval History: No acute issues overnight. Continues to improve from respiratory standpoint. States ?no legs? Review of Systems Denies chest pain Admits shortness of breath on minimal exertion that has improved since admission Denies nausea vomiting diarrhea Denies fever chills Physical Exam Vital Signs: Vital Signs: Last Vital Signs Temp 97.3 F 06/27/24 08:00 Pulse 85 06/27/24 09:29 Resp 16 06/27/24 08:06 BP 149/67 H 06/27/24 09:29 Pulse Ox 93 06/27/24 08:00 O2 Del Method Nasal Cannula 06/27/24 08:00 O2 Flow Rate 5 06/27/24 08:00 BMI result Body Mass Index 30.4 Const: Other: Awake alert speaking in short sentence Resp: Other: Improved aeration to bases with scant bilateral crackles lower 2/3 Cardio: Other: No S4; positive S1-S2; no S3 murmurs rubs or gallops GI: Other: Soft nontender nondistended normoactive bowel sounds Extrem: Other: No edema bilateral Objective Data Active Medications Acetaminophen (Acetaminophen 325 Mg Tablet) 650 mg PO Q6H PRN PRN Reason: Pain, Mild 1-3,fever,headache Albuterol Sulfate (Albuterol Sulfate 90 Mcg 8 Gm Inhaler) 2 puff INHALE Q6H PRN PRN Reason: for wheezing Apixaban (Apixaban 5 Mg Tablet) 5 mg PO BID [facility] Last Admin: 06/27/24 09:29 Dose: 5 mg Documented By: CHRISTINE Ascorbic Acid (Ascorbic Acid 500 Mg Tablet) 500 mg PO BID [facility] Last Admin: 06/27/24 09:29 Dose: 500 mg Documented By: CHRISTINE Atorvastatin Calcium (Atorvastatin Calcium 20 Mg Tablet) 20 mg PO BEDTIME [facility] Last Admin: 06/26/24 20:52 Dose: 20 mg Documented By: ESTELLA Calcium Carbonate (Calcium Carbonate 750 Mg Tab.Chew) 750 mg PO Q4H PRN PRN Reason: Heartburn Ceftriaxone Sodium (Ceftriaxone Sodium 1 Gm Vial) 1 gm IVPUSH Q24H [facility] Last Admin: 06/26/24 13:34 Dose: 1 gm Documented By: BARBARA Cyanocobalamin (Cyanocobalamin (Vitamin B-12) 1,000 Mcg Tablet) 1,000 mcg PO DAILY [facility] Last Admin: 06/27/24 09:29 Dose: 1,000 mcg Documented By: CHRISTINE Diltiazem HCl (Diltiazem Hcl Cd 180 Mg Cap.Er.24h) 180 mg PO DAILY [facility]; Protocol Last Admin: 06/27/24 09:29 Dose: 180 mg Documented By: CHRISTINE Fluticasone Propionate (Fluticasone Propionate Nasal 16 Gm [place]) 1 spray NOSTRIL-B DAILY PRN PRN Reason: Allergy Symptoms Fluticasone/Umeclidinium/Vilanterol (Fluticasone/Umeclidinium/Vilanterol 100/62.5/25 Blst.W.Dev) 1 puff INHALE RDAILY [facility] Last Admin: 06/27/24 08:03 Dose: 1 puff Documented By: ERIC Furosemide (Furosemide 40 Mg Tablet) 40 mg PO DAILY [facility]; Protocol Last Admin: 06/27/24 09:29 Dose: 40 mg Documented By: CHRISTINE Azithromycin 500 mg/ Sodium (Chloride) 250 mls @ 125 mls/hr IV Q24H [facility] Last Infusion: 06/26/24 17:49 Dose: Infused Documented By: BARBARA Magnesium Hydroxide (Milk Of Magnesia 30 Ml Oral.Susp) 30 ml PO DAILY PRN PRN Reason: Constipation Melatonin (Melatonin 3 Mg Tablet) 6 mg PO BEDTIME PRN PRN Reason: Insomnia Methylprednisolone Sodium Succinate (Methylprednisolone Sod Succ 125 Mg/2 Ml Vial) 60 mg IVPUSH Q6H [facility] Last Admin: 06/27/24 06:23 Dose: 60 mg Documented By: ESTELLA Metoprolol Tartrate (Metoprolol Tartrate 50 Mg Tablet) 50 mg PO BID [facility]; Protocol Last Admin: 06/27/24 09:29 Dose: 50 mg Documented By: CHRISTINE Ondansetron HCl (Ondansetron Hcl 4 Mg/2 Ml Vial) 4 mg IVPUSH Q8H PRN PRN Reason: Nausea and Vomiting Potassium Chloride (Potassium Chloride Packet 20 Meq Packet) 20 meq PO Q48H [facility] Last Admin: 06/26/24 08:34 Dose: 20 meq Documented By: BARBARA Sodium Chloride (0.9 % Sodium Chloride Flush 3 Ml Syringe) 3 ml IVFLUSH QSHIFT [facility] Last Admin: 06/27/24 09:28 Dose: 3 ml Documented By: CHRISTINE Vitamin D (Cholecalciferol (Vitamin D3) 25 Mcg Tablet) 25 mcg PO DAILY [facility] Last Admin: 06/27/24 09:29 Dose: 25 mcg Documented By: CHRISTINE Labs 06/27/24 05:49 06/27/24 05:49 Labs: Laboratory Results - last 24 hr 06/27/24 05:49 MCV 95.7 MCH 27.3 MCHC 28.6 L RDW 15.2 Plt Count 142 L MPV 12.9 H Immature Gran % (Auto) 0.9 H Neut % (Auto) 92.4 H Lymph % (Auto) 1.9 L [place] % (Auto) 4.6 Eos % (Auto) 0.0 Baso % (Auto) 0.2 Lymph # (Auto) 0.3 L [place] # (Auto) 0.7 Eos # (Auto) 0.0 Baso # (Auto) 0.0 Abs Immat Gran (auto) 0.14 H Absolute Neuts (auto) 14.6 H Absolute Nucleated RBC 0.000 Nucleated RBC % (auto) 0.0 Smear Tech's Comments VERIFIED Anion Gap 11 L Estim Creat Clear Calc 31.2 Estimated GFR 44 Random Glucose 253 H Calcium 8.4 Total Bilirubin 0.8 AST 25 ALT 17 Alkaline Phosphatase 46 Total Protein 6.2 L Albumin 3.3 L Microbiology Microbiology Results: Microbiology 06/24/24 14:11 Blood Culture - Preliminary Blood - Venous No growth after 48 hours. 06/24/24 14:11 Blood Culture - Preliminary Blood - Venous No growth after 48 hours. 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 Recently admitted for acute respiratory failure secondary to right lower lobe infiltrate. Presents today with worsening shortness of breath 1. Right lower lobe/right middle lobe pneumonia -ceftriaxone/azithromycin (4) -titrate O2 to maintain sats greater than or equal to 90% -pulse dose methylprednisolone 2. Acute on chronic CHF -BNP at baseline -repeat echo as outpatient 3. Chronic atrial fibrillation -acceptable control on current therapies -adjust as indicated -continue Eliquis 4. Diabetes type 2 -acceptable control apparently with diet -lispro correctional scale -at therapies as clinically indicated Eliquis DNR DNI Patient will require at least 2 midnights going forward of inpatient stay to treat pneumonia that has failed outpatient therapies. Can not be achieved in a less acute setting Quality Stroke Does the patient have a stroke diagnosis?: No VTE Prior VTE?: No VTE Risk Level:: Medical - moderate - high VTE Device Contraindication: Treatment Not Indicated VTE Drug Contraindication: N/A - Med Ordered
[2024-06-27] MEDS: cefTRIAXone sodium 1 GM VIAL IVPUSH (13:22)
--- NOTE | 2024-06-27 15:37 | MHC.CM.PN ---
PER ROUNDS PT WILL RETURN TO [facility]ARE WHEN READY
[2024-06-27] MEDS: cefuroxime axetiL 500 MG TABLET PO (18:10)
[2024-06-27] MEDS: Azithromycin 500 MG TABLET PO (18:10)
[2024-06-27] MEDS: Calcium Carbonate 750 MG TAB.CHEW PO (19:33)
--- NOTE | 2024-06-27 20:50 | P.DS_ITS ---
DS: Providers Provider Date of Service: 06/22/24 Date of admission: 06/24/24 15:54 Date of discharge: 06/22/24 Primary care physician: Radha Ramsey MD DS: Diagnosis Discharge Diagnosis (1) Pneumonia: Status: Acute (2) Acute hypoxemic respiratory failure: Status: Acute DS: Summary Hospital Course Hospital Course: from initial hpi: 89 years old woman with past medical history significant for atrial fibrillation on Eliquis, hyperlipidemia, TIA, COPD on home O2 (2.5 L/min), breast cancer (s/p lumpectomy and radiation), CAD, small-cell CA of the right upper lobe (status post resection + chemotherapy) and HFrEF (EF 50-55% w/ severely reduced RV systolic function Echo December 2023) presents to the emergency department complaining of 3 day history of worsening shortness on breath associated with l eg edema, low oxygen saturation and nonproductive cough (right leg has been tenuous fluid drainage). She denied chest pain. She stated that she tried nebs at home + increased O2 flow to 3L/min without improvement of symptoms. She did not report any acute gastrointestinal genitourinary symptoms. In the ED, she was found to have tachycardia consistent with rapid AFib and tachypnea. There is no fever. She required dry with rescue BiPAP x2 as her O2 sats persisted in the mid 80s. Blood workup showed no leukocytosis. Hemoglobin is 11.2 which is at baseline and platelets are normal. Initial venous gas showed pH is 7.34 and CO2 of 84. After 1st trial with BiPAP the pH increased to 7.66 and pCO2 234. Chest CT scan showed right lower lobe pulmonary lesion suspicious for neoplasm, cardiomegaly, bilateral pleural effusion with underlying consolidation and pulmonary bullous disease and right upper lobe scarring. Venous ultrasound of the lower extremities showed no DVT. Viral testing for COVID-19, influenza and RSV is negative. ED tx: Solu-Medrol 125 mg IV, Lasix 40 mg IV x2, diltiazem 30 mg IV (total), albuterol, metoprolol 5 mg IV, Xopenex 5 mg inhaled hospital course: Patient was admitted for acute hypoxic and acute on chronic hypercapnic respiratory failure secondary to acute exacerbation of heart failure with recovered ejection fraction and acute bronchitis. Chest x-ray showed bilateral pleural effusions and cardiomegaly and question of right lower lobe neoplasm. Was treated with diuresis antibiotics and steroids. Was seen by Pulmonary recommended follow up CT chest as outpatient and advised against thoracentesis as likely chronic pleural effusion related to CHF. Course was complicated by acute hypercapnia requiring BiPAP therapy and transferred to the ICU, was treated with BiPAP and diuresis and downgraded 06/20/2024. For persistent atrial fibrillation with rapid ventricular response was initially treated with Cardizem drip then transitioned to metoprolol, p.o. Cardizem, Eliquis. For diabetes was continued on insulin sliding scale. For COPD on DuoNebs and maintenance inhalers. Due to generalized weakness was discharged to longterm [facility]. Expected require less than 30 days. Time Attestation Discharge Coordination Time (in mins): 32 Quality: Safe Use of Opioids Does Pt have an Active Cancer Diagnosis on the Problem List?: No Quality: Stroke Does the patient have a stroke diagnosis?: No Physical Exam Vital Signs: Vital Signs: Last Vital Signs Temp 98.4 F 06/27/24 19:25 Pulse 84 06/27/24 19:25 Resp 16 06/27/24 19:25 BP 135/60 06/27/24 19:25 Pulse Ox 92 06/27/24 19:25 O2 Del Method Nasal Cannula 06/27/24 19:25 O2 Flow Rate 5 06/27/24 19:25 BMI result Body Mass Index 30.4 Const: General: no acute distress, alert and awake Eyes: Sclerae: sclerae normal EOM: EOMs intact bilaterally Neck: Neck: Yes no lymphadenopathy, Yes trachea midline and Yes supple Resp: Effort & Inspection: normal respiratory effort and no respiratory distress Auscultation: clear to auscultation bilaterally Cardio: Rate: tachycardic Rhythm: abnormal rhythm irregularly irregular Heart sounds: no gallops, no murmurs and no rubs GI: Palpation (GI): Soft to palpation and Other GI palpation findings present ( Nontender) Auscultation: normal bowel sounds Extrem: General: No clubbing, No cyanosis and Yes edema (Trace bilateral) DS: Data Data Completed and Pending Completed studies during hospitalization [Text1]: Procedures Drainage of Right Pleural Cavity, Percutaneous Approach (01/08/24) Labs on day of discharge: Laboratory Results - last 24 hr 06/27/24 05:49 WBC 15.8 H RBC 4.17 L Hgb 11.4 L Hct 39.9 MCV 95.7 MCH 27.3 MCHC 28.6 L RDW 15.2 Plt Count 142 L MPV 12.9 H Immature Gran % (Auto) 0.9 H Neut % (Auto) 92.4 H Lymph % (Auto) 1.9 L [place] % (Auto) 4.6 Eos % (Auto) 0.0 Baso % (Auto) 0.2 Lymph # (Auto) 0.3 L [place] # (Auto) 0.7 Eos # (Auto) 0.0 Baso # (Auto) 0.0 Abs Immat Gran (auto) 0.14 H Absolute Neuts (auto) 14.6 H Absolute Nucleated RBC 0.000 Nucleated RBC % (auto) 0.0 Smear Tech's Comments VERIFIED Sodium 144 Potassium 4.1 Chloride 98 Carbon Dioxide 39 H Anion Gap 11 L BUN 64 H Creatinine 1.16 Estim Creat Clear Calc 31.2 Estimated GFR 44 Random Glucose 253 H Calcium 8.4 Total Bilirubin 0.8 AST 25 ALT 17 Alkaline Phosphatase 46 Total Protein 6.2 L Albumin 3.3 L Preliminary micro results at discharge 06/24/24 14:11 Blood Culture - Preliminary Blood - Venous No growth after 48 hours. 06/24/24 14:11 Blood Culture - Preliminary Blood - Venous No growth after 48 hours. Discharge Plan Discharge Anticipated Discharge Date/Time: 06/27/24 20:54 Patient Disposition: Xfer [facility] Discharge Diagnosis: chf Referrals: Braulio,Radha Edwards MD [Primary Care Provider] - 1 Week Discharge Medications: No Action Eliquis 5 mg tablet 5 mg PO BID 90 Days Qty: 180 3RF albuterol sulfate 90 mcg/actuation HFA aerosol inhaler 2 puff inhalation Q6H PRN (Reason: for wheezing) Qty: 8.5 0RF diltiazem HCl 180 mg capsule,extended release 24hr 180 mg PO DAILY Qty: 90 2RF (DME) Nasal Mask See Rx Instructions .Route .MEDSUPPLY Qty: 1 0RF Rx Instructions: As directed metoprolol tartrate 50 mg tablet 50 mg PO BID Qty: 180 3RF furosemide 40 mg tablet 40 mg PO DAILY 90 Days Qty: 90 3RF cyanocobalamin (vitamin B-12) [Vitamin B-12] 1,000 mcg Tablet 1,000 mcg PO DAILY ascorbic acid (vitamin C) [Vitamin C] 500 mg Tablet 500 mg PO BID cholecalciferol (vitamin D3) [Vitamin D3] 25 mcg (1,000 unit) Capsule 25 mcg PO DAILY fluticasone propionate 50 mcg/actuation spray,suspension 1 spray intranasal DAILY PRN (Reason: Allergy Symptoms) ipratropium-albuterol 0.5 mg-3 mg(2.5 mg base)/3 mL Solution For Nebulization 3 ml inhalation Q6H PRN (Reason: Shortness Of Breath/Wheezing) Qty: 180 0RF potassium chloride 20 mEq Packet 20 meq PO Q48H ondansetron HCl [Zofran] 4 mg Tablet 4 mg PO Q6H PRN (Reason: Nausea And Vomiting) Trelegy Ellipta 100-62.5-25 mcg blister with device 1 ea inhalation DAILY atorvastatin 20 mg tablet 20 mg PO BEDTIME (DME) Aerochamber MV Spacer See Rx Instructions .Route Qty: 1 0RF Rx Instructions: As directed Stand Alone Forms: Patient Portal Discharge page Print Language: Syriac
[2024-06-27] MEDS: Atorvastatin Calcium 20 MG TABLET PO (21:01)
--- NOTE | 2024-06-27 23:07 | PC.NURSE ---
2245 Pt oob to commode with assist and walker .SOB with minimal exertion.BTB 02sat-77% on 5L n/c.Placed pt on oxymask at 7L 02sat-91%.
--- NOTE | 2024-06-27 23:52 | PC.NURSE ---
02sat-95% on 7L oxymask decreased 02 to 5L oxymask.Will continue to monitor.
[2024-06-28] MEDS: methylPREDNISolone Sod Succ 125 MG/2 ML VIAL 60 MG IVPUSH ×3 (00:18→13:40)
[2024-06-28 03:41] VITALS: BP 127/62; PULSE 73; RESP 16; TEMP 36.5; O2SAT 91
[2024-06-28] MEDS: cefuroxime axetiL 500 MG TABLET PO ×2 (06:11→18:10)
[2024-06-28 08:00] VITALS: BP 142/65; PULSE 79; RESP 17; TEMP 37.2; O2SAT 92
[2024-06-28] MEDS: Fluticasone/Umeclidinium/Vilanterol 100/62.5/25 BLST.W.DEV 1 PUFF INHALE (08:48)
[2024-06-28 08:56] VITALS: PULSE 92; RESP 18; O2SAT 91
[2024-06-28 09:22] VITALS: BP 142/65; PULSE 92
[2024-06-28] MEDS: 0.9 % Sodium Chloride Flush 3 ML SYRINGE IVFLUSH (09:22)
[2024-06-28] MEDS: dilTIAZem HCL CD 180 MG CAP.ER.24H PO (09:22)
[2024-06-28] MEDS: Ascorbic Acid 500 MG TABLET PO ×2 (09:22→19:57)
[2024-06-28] MEDS: Furosemide 40 MG TABLET PO (09:22)
[2024-06-28] MEDS: Metoprolol Tartrate 50 MG TABLET PO ×2 (09:22→19:57)
[2024-06-28] MEDS: Potassium Chloride Packet 20 MEQ PACKET PO (09:23)
[2024-06-28] MEDS: Cyanocobalamin (Vitamin B-12) 1,000 MCG TABLET 1000 MCG PO (09:23)
[2024-06-28] MEDS: Cholecalciferol (Vitamin D3) 25 MCG TABLET PO (09:23)
[2024-06-28] MEDS: Apixaban 5 MG TABLET PO ×2 (09:36→19:57)
[2024-06-28] MEDS: Albuterol Sulfate 90 MCG 8 GM INHALER 2 PUFF INHALE (09:43)
--- NOTE | 2024-06-28 10:31 | P.DS_ITS ---
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 She denied chest pain. She stated that she tried nebs at home + increased O2 flow to 3L/min without improvement of symptoms. She did not report any acute gastrointestinal genitourinary symptoms. In the ED, she was found to have tachycardia consistent with rapid AFib and tachypnea. There is no fever. She required dry with rescue BiPAP x2 as her O2 sats persisted in the mid 80s. Blood workup showed no leukocytosis. Hemoglobin is 11.2 which is at baseline and platelets are normal. Initial venous gas showed pH is 7.34 and CO2 of 84. After 1st trial with BiPAP the pH increased to 7.66 and pCO2 234. Chest CT scan showed right lower lobe pulmonary lesion suspicious for neoplasm, cardiomegaly, bilateral pleural effusion with underlying consolidation and pulmonary bullous disease and right upper lobe scarring. Venous ultrasound of the lower extremities showed no DVT. Viral testing for COVID-19, influenza and RSV is negative. ED tx: Solu-Medrol 125 mg IV, Lasix 40 mg IV x2, diltiazem 30 mg IV (total), albuterol, metoprolol 5 mg IV, Xopenex 5 mg inhaled hospital course: Patient was admitted for acute hypoxic and acute on chronic hypercapnic respiratory failure secondary to acute exacerbation of heart failure with recovered ejection fraction and acute bronchitis. Chest x-ray showed bilateral pleural effusions and cardiomegaly and question of right lower lobe neoplasm. Was treated with diuresis antibiotics and steroids. Was seen by Pulmonary recommended follow up CT chest as outpatient and advised against thoracentesis as likely chronic pleural effusion related to CHF. Course was complicated by acute hypercapnia requiring BiPAP therapy and transferred to the ICU, was treated with BiPAP and diuresis and downgraded 06/20/2024. For persistent atrial fibrillation with rapid ventricular response was initially treated with Cardizem drip then transitioned to metoprolol, p.o. Cardizem, Eliquis. For diabetes was continued on insulin sliding scale. For COPD on DuoNebs and maintenance inhalers. Due to generalized weakness was discharged to [facility]. Expected require less than 30 days. Time Attestation Discharge Coordination Time (in mins): 35 Quality: Safe Use of Opioids Does Pt have an Active Cancer Diagnosis on the Problem List?: No Quality: Stroke Does the patient have a stroke diagnosis?: No Physical Exam Vital Signs: Vital Signs: Last Vital Signs Temp 98.9 F 06/28/24 08:00 Pulse 92 06/28/24 09:22 Resp 18 06/28/24 08:56 BP 142/65 H 06/28/24 09:22 Pulse Ox 92 06/28/24 08:00 O2 Del Method Oxymask 06/28/24 08:00 O2 Flow Rate 5 06/28/24 08:00 BMI result Body Mass Index 30.4 Const: Other: Awake alert speaking in short sentence Resp: Other: Improved aeration to bases with scant bilateral crackles lower 2/3 Cardio: Other: No S4; positive S1-S2; no S3 murmurs rubs or gallops GI: Other: Soft nontender nondistended normoactive bowel sounds Extrem: Other: No edema bilateral DS: Data Data Completed and Pending Completed studies during hospitalization [Text1]: Procedures Assistance with Respiratory Ventilation, Less than 24 Consecutive Hours, Continuous Positive Airway Pressure (06/11/24) Drainage of Right Pleural Cavity, Percutaneous Approach (01/08/24) Labs on day of discharge: Preliminary micro results at discharge 06/24/24 14:11 Blood Culture - Preliminary Blood - Venous No growth after 48 hours. 06/24/24 14:11 Blood Culture - Preliminary Blood - Venous No growth after 48 hours. Discharge Plan Discharge Anticipated Discharge Date/Time: 06/27/24 20:54 Patient Disposition: Xfer SNF Discharge Diagnosis: chf Referrals: Po,Radha Edwards MD [Primary Care Provider] - 1 Week Discharge Medications: New prednisone 10 mg tablet See Rx Instructions .Route .COMPLEX Qty: 45 0RF Rx Instructions: 10 mg orally; 5 tabs p.o. daily x3 days; 4 tabs p.o. daily x3 days; 3 tabs daily x3 days; 2 tabs daily x3 days; 1 tab daily x3 days cefuroxime axetil 250 mg tablet 250 mg PO BID 5 Days Qty: 10 0RF Continued Eliquis 5 mg tablet 5 mg PO BID 90 Days Qty: 180 3RF albuterol sulfate 90 mcg/actuation HFA aerosol inhaler 2 puff inhalation Q6H PRN (Reason: for wheezing) Qty: 8.5 0RF diltiazem HCl 180 mg capsule,extended release 24hr 180 mg PO DAILY Qty: 90 2RF (DME) Nasal Mask See Rx Instructions .Route .MEDSUPPLY Qty: 1 0RF Rx Instructions: As directed metoprolol tartrate 50 mg tablet 50 mg PO BID Qty: 180 3RF furosemide 40 mg tablet 40 mg PO DAILY 90 Days Qty: 90 3RF cyanocobalamin (vitamin B-12) [Vitamin B-12] 1,000 mcg Tablet 1,000 mcg PO DAILY ascorbic acid (vitamin C) [Vitamin C] 500 mg Tablet 500 mg PO BID cholecalciferol (vitamin D3) [Vitamin D3] 25 mcg (1,000 unit) Capsule 25 mcg PO DAILY fluticasone propionate 50 mcg/actuation spray,suspension 1 spray intranasal DAILY PRN (Reason: Allergy Symptoms) ipratropium-albuterol 0.5 mg-3 mg(2.5 mg base)/3 mL Solution For Nebulization 3 ml inhalation Q6H PRN (Reason: Shortness Of Breath/Wheezing) Qty: 180 0RF potassium chloride 20 mEq Packet 20 meq PO Q48H ondansetron HCl 4 mg Tablet 4 mg PO Q6H PRN (Reason: Nausea And Vomiting) Trelegy Ellipta 100-62.5-25 mcg blister with device 1 ea inhalation DAILY atorvastatin 20 mg tablet 20 mg PO BEDTIME (DME) Aerochamber MV Spacer See Rx Instructions .Route Qty: 1 0RF Rx Instructions: As directed Discharge Orders: Discharge Order (Routine); Ordered 06/28/24 Ordered By: Cosme Duke Diet: Advance to usual diet Activity on Discharge: As tolerated Stand Alone Forms: Patient Portal Discharge page Print Language: Uruguayan Care Plan Goals: Resume all meds as outlined on transfer sheet Health Concerns: Ceftin 250 mg twice daily for 5 days along with prednisone taper has been added to regimen Plan of Treatment: As per receiving facility Assessment: See discharge summary
[2024-06-28 15:38] VITALS: BP 108/58; PULSE 71; RESP 17; TEMP 36.8; O2SAT 95
[2024-06-28] MEDS: predniSONE 20 MG TABLET 40 MG PO (17:52)
[2024-06-28] MEDS: Azithromycin 500 MG TABLET PO (18:10)
[2024-06-28 19:40] VITALS: BP 126/89; PULSE 66; RESP 20; TEMP 37; O2SAT 96
[2024-06-28] MEDS: Atorvastatin Calcium 20 MG TABLET PO (19:57)
[2024-06-29 03:34] VITALS: BP 126/60; PULSE 74; RESP 16; TEMP 36.3; O2SAT 94
[2024-06-29] MEDS: cefuroxime axetiL 500 MG TABLET PO (05:09)
[2024-06-29 07:38] VITALS: BP 133/61; PULSE 80; RESP 18; TEMP 36.6; O2SAT 97
[2024-06-29] MEDS: Fluticasone/Umeclidinium/Vilanterol 100/62.5/25 BLST.W.DEV 1 PUFF INHALE (07:39)
[2024-06-29 07:41] VITALS: PULSE 80; RESP 18; O2SAT 94
[2024-06-29] MEDS: dilTIAZem HCL CD 180 MG CAP.ER.24H PO (07:49)
[2024-06-29] MEDS: Furosemide 40 MG TABLET PO (07:49)
[2024-06-29] MEDS: Apixaban 5 MG TABLET PO (07:49)
[2024-06-29] MEDS: predniSONE 20 MG TABLET 40 MG PO ×2 (07:49→16:43)
[2024-06-29] MEDS: Metoprolol Tartrate 50 MG TABLET PO (07:49)
[2024-06-29] MEDS: Cholecalciferol (Vitamin D3) 25 MCG TABLET PO (07:50)
[2024-06-29] MEDS: Cyanocobalamin (Vitamin B-12) 1,000 MCG TABLET 1000 MCG PO (07:50)
[2024-06-29] MEDS: Ascorbic Acid 500 MG TABLET PO (07:50)
[2024-06-29] MEDS: Albuterol Sulfate 90 MCG 8 GM INHALER 2 PUFF INHALE ×2 (09:58→17:06)
--- NOTE | 2024-06-29 13:36 | MHC.CM.PN ---
pt dcd back to [facility] today at 5 dgter stevo brooks/ponce re same
[2024-06-29 14:52] VITALS: BP 136/63; PULSE 85; RESP 22; TEMP 36.2; O2SAT 95
--- NOTE | 2024-06-29 17:14 | PC.NURSE ---
pt has remained on 5l oxymask thorughout the day. Desats with minimal movement and repositioning. Occasional productive cough- brown sputum. Denies pain
[2024-06-29 17:42] VITALS: O2SAT 93
[2024-06-29 18:22] VITALS: BP 125/60; PULSE 79; RESP 20; TEMP 36.8; O2SAT 94
== END 2024-06-29 18:46 | disposition skilled nursing facility (03) | DRG 193 ==
LOC: HO.ED 14:18 → HO.EDOVER 16:06 → HO.S3 06-25 15:38
PROVIDERS: Physician Assistant Medical; Admitting Provider Hospitalist; Emergency Provider Emergency Medicine; PCP Internal Medicine; Visit Provider Nurse Practitioner Acute Care
DX: J18.9 Pneumonia, unspecified organism (principal); I50.23 Acute on chronic systolic (congestive) heart failure; J96.22 Acute and chronic respiratory failure with hypercapnia; J96.21 Acute and chronic respiratory failure with hypoxia; J44.0 Chronic obstructive pulmonary disease with (acute) lower respiratory infection; I48.19 Other persistent atrial fibrillation; Z66 Do not resuscitate; E11.9 Type 2 diabetes mellitus without complications; J20.9 Acute bronchitis, unspecified; I11.0 Hypertensive heart disease with heart failure; I25.10 Atherosclerotic heart disease of native coronary artery without angina pectoris; Z20.822 Contact with and (suspected) exposure to COVID-19; Z85.3 Personal history of malignant neoplasm of breast; Z85.118 Personal history of other malignant neoplasm of bronchus and lung; Z87.891 Personal history of nicotine dependence; Z79.01 Long term (current) use of anticoagulants; Z79.899 Other long term (current) drug therapy
CPT/HCPCS: 0241U; 36415; 71045; 80053; 82803; 82947; 83605; 83735; 83880; 84484; 85007; 85025; 85027; 87040; 87070; 87205; 93005; 94640; 97162; 99285; J0456; J0696; J1940; J2919

== ENCOUNTER → 2024-06-24 13:00 | Outpatient (BNV) | payer MEDICARE, MEDICAID, SELFPAY | PROVIDERS: Emergency Provider Emergency Medicine; PCP Internal Medicine; Visit Provider Internal Medicine Cardiovascular Disease | DX: I48.91 Unspecified atrial fibrillation (principal) | CPT/HCPCS: 93010 ==

== ENCOUNTER → 2024-06-24 13:01 | Outpatient (BNV) | payer MEDICARE, MEDICAID, SELFPAY | PROVIDERS: Emergency Provider Emergency Medicine; PCP Internal Medicine; Visit Provider Radiology Diagnostic Radiology | DX: R06.02 Shortness of breath (principal) | CPT/HCPCS: 71045 ==

== ENCOUNTER → 2024-06-24 15:54 | Outpatient (BNV) | payer MEDICARE, MEDICAID, SELFPAY | PROVIDERS: Admitting Provider Hospitalist; Emergency Provider Emergency Medicine; PCP Internal Medicine; Visit Provider Hospitalist | DX: J18.9 Pneumonia, unspecified organism (principal); J96.01 Acute respiratory failure with hypoxia | CPT/HCPCS: 99233; 99239 ==

== ENCOUNTER 2024-06-30 09:41 | Inpatient (IN) | payer MEDICARE, OTHER, SELFPAY ==
[2024-06-30] VITALS (10 sets, daily range): BP systolic 118–143; BP diastolic 44–78; PULSE 68–116; RESP 16–26; TEMP 36–37.6; O2SAT 90–96
--- NOTE | ~2024-06-30 | XR_ITS ---
EXAMINATION: XR CHEST CLINICAL INFORMATION: cough COMPARISON: Chest 06/24/2024 TECHNIQUE: Frontal view of the chest was obtained. FINDINGS: Patient is rotated to the right. Cardiomegaly with normal pulmonary vascularity. The right lung is hypoexpanded. There is moderate patchy opacity right parahilar region similar to previous study 06/24/2024. Heart size is borderline is normal. Pulmonary vascularity is prominent. There are surgical melba in the right hilar region. No gross bony abnormality seen. XR/XR chest 1V IMPRESSION: Hypoexpanded right lung with right parahilar moderate opacity question chronic scarring/atelectasis. Infiltrate cannot be excluded. Increased pulmonary vascularity, question congestion. Electronically signed by: Glen Rahman MD 06/30/2024 10:52 AM [facility]
--- NOTE | ~2024-06-30 | XR_ITS ---
EXAMINATION: XR CHEST CLINICAL INFORMATION: acute hypoxia COMPARISON: June 30, 2024. TECHNIQUE: Frontal view of the chest was obtained. FINDINGS: Patchy and confluent opacity throughout the right lobe with minimal aerated right lung apex. Volume loss with the shifting of the cardia mediastinal silhouette to the right. Bilateral pulmonary reticular nodular pattern. Indistinct margins in the right side of the cardiomediastinal silhouette. Calcified plaque thoracic aorta. Vascular clips likely in the mediastinum/right pulmonary hilum region. Multilevel thoracolumbar spondylosis. Degenerative changes in the shoulders, right greater than the left side. No pneumothorax. XR/XR chest 1V IMPRESSION: Atelectatic component, new since prior exam suggesting mucous plug versus extrinsic compression upon right mainstem bronchus resulting in atelectasis versus airway disease. A loculated right-sided pleural effusion cannot be excluded. Electronically signed by: Anthony Steiner MD 07/01/2024 08:28 AM [facility]
--- NOTE | 2024-06-30 09:43 | ECG_ITS ---
Test Reason : SOB Blood Pressure : */* mmHG Vent. Rate : 114 BPM Atrial Rate : * BPM P-R Int : * ms QRS Dur : 68 ms QT Int : 310 ms P-R-T Axes : * 96 59 degrees QTcB Int : 427 ms Artifact in tracing Atrial fibrillation with rapid ventricular response Rightward axis Septal infarct , age undetermined Abnormal ECG When compared with ECG of 24-Jun-2024 13:13, No significant change was found Referred By: Roberto Hoffmann Electronically Signed By: VIMAL WARE
--- NOTE | 2024-06-30 10:00 | ED.SOB ---
HPI - SOB/Dyspnea General Chief Complaint: Dyspnea Stated Complaint: DA pneumonia, 15L NRB at 96%, duoneb Time Seen by Provider: 06/30/24 09:44 Source: EMS Mode of arrival: EMS History of Present Illness HPI Narrative: This is 89 years old the patient with a history of pneumonia, COPD at baseline 2.5 liter, atrial fibrillation on Eliquis presented to the emergency department in respiratory distress she was found to be with O2 sat of 30% at the nursing facility she was placed on non-rebreather mask she was given a nebulizer treatment by the maintenance groundman. Patient was admitted from June 24 to June 29 yesterday to [facility] for pneumonia she was started on antibiotic. During her stay she had a CT scan of the chest which showed a right lower pulmonary lesion suspicious for neoplasm and bilateral effusion MD elicited complaint: shortness of breath Pertinent past history: COPD Onset (ago): hour(s) (6) Context: recent illness Timing: constant Severity: moderate Exacerbating factors: nothing Relieving factors: nothing Known history of: COPD and congestive heart failure Associated symptoms: denies other symptoms Related Data Home oxygen amount: other (2.5) Home Medications ?Medication ?Instructions ?Recorded ?Confirmed ascorbic acid (vitamin C) 500 mg 500 mg PO BID 01/08/24 06/24/24 tablet (Vitamin C) cholecalciferol (vitamin D3) 25 25 mcg PO DAILY 01/08/24 06/24/24 mcg (1,000 unit) capsule (Vitamin D3) cyanocobalamin (vitamin B-12) 1,000 mcg PO DAILY 01/08/24 06/24/24 1,000 mcg tablet (Vitamin B-12) fluticasone propionate 50 1 spray intranasal DAILY PRN 01/08/24 06/24/24 mcg/actuation nasal Allergy Symptoms spray,suspension atorvastatin 20 mg tablet 20 mg PO BEDTIME 06/11/24 06/24/24 fluticasone fur. 100 mcg-umeclid 1 ea inhalation DAILY 06/11/24 06/24/24 62.5 mcg-vilant 25 mcg inhalat.powder (Trelegy Ellipta) ondansetron HCl 4 mg tablet 4 mg PO Q6H PRN Nausea And Vomiting 06/24/24 06/24/24 potassium chloride 20 mEq oral 20 meq PO Q48H 06/24/24 06/24/24 packet Previous Rx's ?Medication ?Instructions ?Recorded apixaban 5 mg tablet (Eliquis) 5 mg PO BID 90 days #180 tabs 09/23/23 inhalational spacing device #1 ea 11/05/23 (Aerochamber MV spacer) albuterol sulfate 90 mcg/actuation 2 puff inhalation Q6H PRN for 11/27/23 aerosol inhaler wheezing #8.5 ea ipratropium 0.5 mg-albuterol 3 mg 3 ml inhalation Q6H PRN Shortness 01/15/24 (2.5 mg base)/3 mL nebulization Of Breath/Wheezing #180 mL soln diltiazem HCl 180 mg 180 mg PO DAILY #90 caps 02/11/24 capsule,extended release 24 hr Nasal Mask #1 ea 04/05/24 metoprolol tartrate 50 mg tablet 50 mg PO BID #180 tabs 05/27/24 furosemide 40 mg tablet 40 mg PO DAILY 90 days #90 tabs 05/29/24 cefuroxime axetil 250 mg tablet 250 mg PO BID 5 days #10 tabs 06/28/24 prednisone 10 mg tablet See Rx Instructions .Route 06/28/24 .COMPLEX #45 tabs Allergies Allergy/AdvReac Type Severity Reaction Status Date / Time ADONIS Inhibitors Allergy Severe ANGIOEDEMA Verified 06/30/24 09:48 [Adonis Inhibitors] Sulfa (Sulfonamide Allergy Intermediate CHILLS Verified 06/30/24 09:48 Antibiotics) [Sulfa (Sulfonamides)] Review of Systems Constitutional: Constitutional: Reports no additional constitutional complaints Cardiovascular: Cardiovascular: Reports no additional cardiovascular complaints Respiratory: Respiratory: Reports no additional respiratory complaints [facility] Past Medical History Attestation statement: The following information was validated with the patient. Medical History Pleural effusion Atrial fibrillation History of cancer of upper lobe bronchus or lung Age-related osteoporosis without current pathological fracture History of right breast cancer Mesenteric ischemia Diverticular disease Congestive heart failure Degenerative disc disease Coronary artery disease Obesity (BMI 30-39.9) Peripheral vascular disease Hypercholesterolemia TIA (transient ischemic attack) Anemia Breast cancer Small cell lung cancer, right lower lobe HTN (hypertension) COPD (chronic obstructive pulmonary disease) Surgical History History of lumpectomy of right breast H/O resection of small bowel Family History Family History Father Heart disease Mother Heart disease Brother Multiple myeloma Brother Lung cancer Social History Social History Household Members: Children Housing: Apartment Are you a primary healthcare administration internship to a significant other at home: No Do you presently have visiting nurse or other home services: Yes Alcohol intake: never Patient Tobacco Use Status: Former Tobacco user Tobacco use type: Cigarette Cigarette Packs Per Day: 1 Cigarettes Per Day: 20.0 Years Smoked: 15 e-Cigarette/Vaping Use: Never Used Second Hand Smoke Exposure: No Advance Directives: No Advance Directives Information Provided: Yes Advance Directives Date on File: 01/08/24 service: No Current occupational status: retired Current occupational exposures/hazards: No Cognitive needs: Yes (walker) Hearing needs: Yes Vision needs: Yes (glasses) Physical Exam Vital Signs: Vital Signs: Last Vital Signs Pulse 116 H 06/30/24 10:27 Resp 26 H 06/30/24 10:27 BP 123/54 L 06/30/24 09:45 Pulse Ox 95 06/30/24 09:45 O2 Del Method Aerosol Mask 06/30/24 09:45 Oxygen Flow Rate 7 06/30/24 09:45 BMI result Body Mass Index 30.0 Moderate distress tachypneic at 24 Const: General: cooperative Nutritional Appearance: average body habitus HEENT: Head: Yes normal to inspection General nose exam: Normal external nose present Neck: Neck: Yes normal visual inspection, Yes full ROM and Yes no lymphadenopathy Chest: Chest palpation & inspection: normal inspection of the chest Resp: Auscultation: rhonchi GI: Inspection: Yes normal to inspection Palpation (GI): Soft to palpation, not firm, nontender and no guarding Skin: General skin exam: no rashes or lesions noted and elasticity normal Lesions: no lesions Rashes: no rashes Course Reevaluation(s) Reevaluation #1: I met with the daughter, the patient is DNR Time: 12:25 Medications Administered Discontinued Medications Generic Name Dose Route Start Last Admin Trade Name Freq PRN Reason Stop Dose Admin Albuterol Sulfate 5 mg/ 0 mg 06/30/24 10:26 06/30/24 10:32 Albuterol/Ipratropium 3 ml INHALE 06/30/24 10:27 7.5 each ONCE ONE Administration Insulin Human Lispro 10 unit 06/30/24 10:44 06/30/24 10:59 Insulin Lispro 100 Unit/Ml 3 Ml Vial SUBCUT 06/30/24 10:45 10 unit ONCE ONE Administration Methylprednisolone Sodium Succinate 125 mg 06/30/24 10:08 06/30/24 10:25 Methylprednisolone Sod Succ 125 Mg/2 Ml Vial IVPUSH 06/30/24 10:09 125 mg ONCE ONE Administration Medical Decision Making Medical Decision Making [facility] Narrative: Patient presented in respiratory distress we will get chest x-ray labs and reassess administer nebs. 12:28 PM clinical picture is more consistent with a COPD exacerbation I do not think this patient is in CHF the BNP is only 277, white count was noted but she is on steroid she just completed a course of antibiotic. Chest x-ray reviewed by me is essentially unchanged she does have right lower lobe lesion likely cancer. I met with the daughter the patient is now DNR Differential Diagnosis Differential Diagnoses: The differential diagnosis associated with the presentation includes COPD exacerbation/congestive heart failure. Admission/Observation Consideration of admission/observation: Escalation of care including admission/observation considered Lab Data [facility] Lab Attestation statement: I reviewed the patient's lab results. 06/30/24 10:12 06/30/24 10:12 Labs: Lab Results 06/30/24 06/30/24 06/30/24 Range/Units 10:09 10:12 10:17 WBC 19.3 H (4.8-10.8) X10*3/uL RBC 4.04 L (4.20-5.50) X10*6/uL Hgb 11.0 L (12.0-16.0) g/dl Hct 37.4 (37.0-47.0) % MCV 92.6 (80.0-98.0) fL MCH 27.2 (27.0-33.0) pg MCHC 29.4 L (31.0-35.0) g/dl RDW 15.3 (11.0-16.0) % Plt Count 152 L (160-400) X10*3/uL MPV 12.4 H (9.4-12.3) fL Immature Gran % (Auto) 0.7 H (0.0-0.4) % Neut % (Auto) 94.3 H (45-73) % Lymph % (Auto) 0.7 L (20-40) % [place] % (Auto) 4.1 (2-11) % Eos % (Auto) 0.0 (0-4) % Baso % (Auto) 0.2 (0-2) % Lymph # (Auto) 0.1 L (1.2-4.9) X10*3/uL [place] # (Auto) 0.8 (0.1-1.2) X10*3/uL Eos # (Auto) 0.0 (0.0-0.4) X10*3/uL Baso # (Auto) 0.0 (0.0-0.2) X10*3/uL Abs Immat Gran (auto) 0.13 H (0.00-0.03) X10*3/uL Absolute Neuts (auto) 18.2 H (2.0-8.3) x10*3/uL Absolute Nucleated RBC 0.000 (0.0-0.012) X10*3/uL Nucleated RBC % (auto) 0.0 (0.0-0.2) /100WBC Smear Tech's Comments VERIFIED PT 20.9 H (10.9-12.4) SEC INR 1.8 H (0.9-1.1) VBG pH 7.35 (7.32-7.43) VBG pCO2 89 mmHg VBG pO2 69 mmHg VBG HCO3 50 H (22-26) mmol/L VBG O2 Saturation 92.0 % VBG Base Excess 19.5 mmol/L Sodium 142 (135-145) mmol/L Potassium 5.1 D (3.3-5.1) mmol/L Chloride 95 L (96-108) mmol/L Carbon Dioxide 39 H (22-29) mmol/L Anion Gap 13 (12-20) BUN 61 H (9-16) mg/dL Creatinine 1.07 (0.5-1.4) mg/dL Estim Creat Clear Calc 33.7 Estimated GFR 48 Random Glucose 372 H* (60-115) mg/dL Lactic Acid 1.4 (0.5-2.0) mmol/L Calcium 8.6 (8.4-10.2) mg/dL Total Bilirubin 1.0 (0.0-1.0) mg/dL AST 36 H (5-31) U/L ALT 29 (0-31) U/L Alkaline Phosphatase 59 (39-117) U/L Troponin I High Sens 36.4 H (<3.5-17.0) ng/L B-Natriuretic Peptide 277 H (<100) pg/mL Total Protein 6.6 (6.5-8.0) g/dL Albumin 3.2 L (3.5-5.0) g/dL Independent Interpretation I performed an independent interpretation of an: EKG Interpretation: Electrocardiogram reviewed interpreted by me as atrial fibrillation with a rate of 114 artifact present no ischemia Radiology Impression Discussion of test interpretation with radiology: I have reviewed the radiologist's reading. Radiologist Impression: To my review the chest x-ray is unchanged from prior Critical Care Time Critical Care Time Critical Care Time: Yes Total Critical Care Time: 60 Attestation: Multiple nebs supplemental oxygen speaking with the daughter about advanced directive Discharge Plan Discharge Clinical Impression: Acute exacerbation of chronic obstructive pulmonary disease, Hypoxia Patient Disposition: Admitted As Inpatient Print Language: Monegasque
[2024-06-30 10:22] LABS: VBG Base Excess 19.5 mmol/L; VBG HCO3 50 mmol/L (22-26); VBG pCO2 89 mmHg; VBG pH 7.35 (7.32-7.43); VBG pO2 69 mmHg
[2024-06-30 10:22] LABS: Venous Blood Gas Refer to POC result
[2024-06-30 10:23] LABS: Basophils Percent Auto 0.2 % (0-2); Hematocrit 37.4 % (37.0-47.0); Imm Gran Abs Auto 0.13 X10*3/uL (0.00-0.03); Imm Gran Pct Auto 0.7 % (0.0-0.4); Lymphocytes Absolute Auto 0.1 X10*3/uL (1.2-4.9); Lymphocytes Percent Auto 0.7 % (20-40); MANUAL DIFF FLAG SCAN; Mean Corpuscular HGB Conc 29.4 g/dl (31.0-35.0); Mean Corpuscular Hemoglobin 27.2 pg (27.0-33.0); Mean Corpuscular Volume 92.6 fL (80.0-98.0); Mean Platelet Volume 12.4 fL (9.4-12.3); Monocytes Absolute Auto 0.8 X10*3/uL (0.1-1.2); Monocytes Percent Auto 4.1 % (2-11); Neutrophils Absolute Auto 18.2 x10*3/uL (2.0-8.3); Neutrophils Percent Auto 94.3 % (45-73); Platelet Count 152 X10*3/uL (160-400); Red Blood Count 4.04 X10*6/uL (4.20-5.50); Red Cell Distribution Width 15.3 % (11.0-16.0); SCAN SMEAR FLAG 1; White Blood Count 19.3 X10*3/uL (4.8-10.8)
[2024-06-30] MEDS: methylPREDNISolone Sod Succ 125 MG/2 ML VIAL IVPUSH (10:25)
[2024-06-30 10:28] LABS: INTERNATIONAL NORM RATIO 1.8 (0.9-1.1); Prothrombin Time 20.9 SEC (10.9-12.4)
[2024-06-30] MEDS: Albuterol Sulfate 5 MG, Albuterol/Iprat 2.5/0.5MG 3 ML 3 ML INHALE (10:32)
[2024-06-30 10:36] LABS: Lactic Acid 1.4 mmol/L (0.5-2.0)
[2024-06-30 10:38] LABS: Alanine Aminotransferase 29 U/L (0-31); Albumin Level 3.2 g/dL (3.5-5.0); Alkaline Phosphatase 59 U/L (39-117); Anion Gap 13 (12-20); Aspartate Amino Transferase 36 U/L (5-31); Blood Urea Nitrogen 61 mg/dL (9-16); Calcium 8.6 mg/dL (8.4-10.2); Carbon Dioxide 39 mmol/L (22-29); Chloride 95 mmol/L (96-108); Creatinine Clr Calc Pharmacy 33.7; Estimated Glomerular Filt Rate 48; Glucose Random 372 mg/dL (60-115); Potassium 5.1 mmol/L (3.3-5.1); Sodium 142 mmol/L (135-145); Total Protein 6.6 g/dL (6.5-8.0)
[2024-06-30 10:41] LABS: SLIDE REVIEW VERIFIED
[2024-06-30 10:43] LABS: B Type Natriuretic Peptide 277 pg/mL (<100)
[2024-06-30 10:44] LABS: Troponin-I High Sensitivity 36.4 ng/L (<3.5-17.0)
[2024-06-30] MEDS: Insulin Lispro 100 UNIT/ML 3 ML VIAL 10 UNIT SUBCUT (10:59)
--- NOTE | 2024-06-30 12:31 | PM.IMHP ---
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 EMS was contacted pt was placed on a non-rebreather and given nebulizer treatment with improvement of O2 sat to 96%. This is patient's 3rd admission to the hospital this month, previously admitted on 06/11-06/22 4 hypoxia in the setting CHF exacerbation. Pt presented back to the ED 2 days after discharge and was admitted on 06/24-06/29 and treated for multifocal pneumonia. Pt reports she initially felt better at facility grew short breath, had difficulty breathing, and became anxious, agitated, and ?worked up during the night. Pt complains she was not getting enough oxygen while at the facility stating she should now be 5L. Chest pain/pressure, palpitations. Pt denies fever, chills, nausea, vomiting, abdominal pain. Of note, pt was discharged on cefuroxime and prednisone taper, though it is not clear whether pt ever received or took them as pharmacy could not verify the prescriptions were ever filled. In the ED pt was tachycardic up to 116, tachypneic up to 26, satting at 94% on 5L OxyMask. Labs were significant for leukocytosis of 19.3 though pt recently on steroids. Random glucose elevated at 372. Stable H&H. Chronic thrombocytopenia, at baseline. No significant electrolyte abnormalities. Renal function baseline. Troponin 36.4, similar to prior. BNP elevated at 277, though decreased from prior at 342. CXR showed right perihilar moderate opacity question of chronic scarring vs atelectasis, though infiltrate can not be excluded. Also showed increased pulmonary vascularity with question of congestion. EKG demonstrated AFib with RVR of 114 no evidence of significant ST elevations or depressions. Pt was treated with Solu-Medrol, DuoNeb, and insulin. Pt will be admitted to the hospital for treatment and further evaluation of acute on chronic hypoxemic and hypercapnic respiratory failure in the setting of COPD exacerbation. Review of Systems Review of Systems: Negative except for that which is stated in the [facility] Medical History Pleural effusion Atrial fibrillation History of cancer of upper lobe bronchus or lung Age-related osteoporosis without current pathological fracture History of right breast cancer Mesenteric ischemia Diverticular disease Congestive heart failure Degenerative disc disease Coronary artery disease Obesity (BMI 30-39.9) Peripheral vascular disease Hypercholesterolemia TIA (transient ischemic attack) Anemia Breast cancer Small cell lung cancer, right lower lobe HTN (hypertension) COPD (chronic obstructive pulmonary disease) Family History Father Heart disease Mother Heart disease Brother Multiple myeloma Brother Lung cancer Surgical History History of lumpectomy of right breast H/O resection of small bowel Social History Household Members: Family Housing: Apartment Are you a primary body care manager to a significant other at home: No Do you presently have visiting nurse or other home services: No Alcohol intake: never Patient Tobacco Use Status: Former Tobacco user Tobacco use type: Cigarette Cigarette Packs Per Day: 1 Cigarettes Per Day: 20.0 Years Smoked: 15 Smoked in Last 30 Days: No e-Cigarette/Vaping Use: Never Used Patient Interested in Nicotine Replacement: No Patient Given Instructions on How to Stop Smoking: No Second Hand Smoke Exposure: No Use of substances other than those prescribed or required for medical reasons: No Currently Displaying Signs/Symptoms of Drug Intoxication Withdrawal: No Any prior treatment program specific to substance use: No Have you been hit, kicked, punched, or otherwise hurt by someone within the past year? If so, by whom?: No Do you feel safe in your current relationship?: No Current Relationship Is there a partner from a previous relationship who is making you feel unsafe now?: No Are you made to feel afraid or neglected: No Advance Directives: No Advance Directives Information Provided: Yes Advance Directives on File: Yes Advance Directives Date on File: 01/08/24 Do you have a plan to hurt others: No Plan Nutrition Risks: No Nutritional Risk Patient : No : No Poor oral hygiene: No service: No Current occupational status: retired Current occupational exposures/hazards: No Cognitive needs: Yes (walker) Hearing needs: Yes Vision needs: Yes (glasses) Meds Allergies Allergy/AdvReac Type Severity Reaction Status Date / Time ADONIS Inhibitors Allergy Severe ANGIOEDEMA Verified 06/30/24 09:48 [Adonis Inhibitors] Sulfa (Sulfonamide Allergy Intermediate CHILLS Verified 06/30/24 09:48 Antibiotics) [Sulfa (Sulfonamides)] Active Medications: Current Medications Cefepime HCl (Maxipime) 2 gm in 50 mls @ 100 mls/hr IV ONCE ONE Stop: 06/30/24 12:59 Home Medications ?Medication ?Instructions ?Recorded ?Confirmed ?Last Taken ?Type ascorbic acid (vitamin C) 500 mg 500 mg PO BID 01/08/24 06/30/24 06/30/24 History tablet (Vitamin C) cholecalciferol (vitamin D3) 25 25 mcg PO DAILY 01/08/24 06/30/24 06/30/24 History mcg (1,000 unit) capsule (Vitamin D3) cyanocobalamin (vitamin B-12) 1,000 mcg PO DAILY 01/08/24 06/30/24 06/30/24 History 1,000 mcg tablet (Vitamin B-12) fluticasone propionate 50 1 spray intranasal DAILY PRN 01/08/24 06/30/24 06/24/24 History mcg/actuation nasal Allergy Symptoms spray,suspension atorvastatin 20 mg tablet 20 mg PO BEDTIME 06/11/24 06/30/24 06/29/24 History fluticasone fur. 100 mcg-umeclid 1 ea inhalation DAILY 06/11/24 06/30/24 06/30/24 History 62.5 mcg-vilant 25 mcg inhalat.powder (Trelegy Ellipta) ondansetron HCl 4 mg tablet 4 mg PO Q6H PRN Nausea And Vomiting 06/24/24 06/30/24 Unknown History potassium chloride 20 mEq oral 20 meq PO Q48H 06/24/24 06/30/24 06/28/24 History packet acetaminophen 325 mg tablet 325 mg PO Q4H PRN Pain or Fever 06/30/24 06/30/24 Unknown History apixaban 5 mg tablet (Eliquis) 5 mg PO BID 06/30/24 06/30/24 06/30/24 History bisacodyl 10 mg rectal suppository 10 mg LA DAILY PRN Bowel Management 06/30/24 06/30/24 Unknown History magnesium hydroxide 400 mg/5 mL 30 ml PO DAILY PRN Bowel Management 06/30/24 06/30/24 Unknown History oral suspension (Milk of Magnesia) naloxone 0.4 mg/mL injection 0.4 mg subcut Q3M PRN 06/30/24 06/30/24 Unknown History solution Sedation/Unresponsive sodium phosphates 19 gram-7 118 ml LA DAILY PRN Bowel 06/30/24 06/30/24 Unknown History gram/118 mL enema Management Physical Exam Vital Signs and Narrative: Vital Signs: Last Vital Signs Pulse 116 H 06/30/24 10:27 Resp 26 H 06/30/24 10:27 BP 123/54 L 06/30/24 09:45 Pulse Ox 95 06/30/24 09:45 O2 Del Method Aerosol Mask 06/30/24 09:45 Oxygen Flow Rate 7 06/30/24 09:45 BMI result Body Mass Index 30.0 General: AOx3, no acute distress Resp: Diffuse bilateral expiratory wheezing, increased work of breathing with diaphoretic breathing CVS: Irregular rhythm, tachycardic GI: +BS, NT, no distention Skin: Warm, dry Neuro: Cranial nerves II-XII grossly intact bilaterally. Motor grossly intact bilaterally Extremities: No edema Psych: Anxious but cooperative Results Labs 06/30/24 10:12 06/30/24 10:12 Labs: Laboratory Results - last 24 hr 06/30/24 06/30/24 06/30/24 10:09 10:12 10:17 MCV 92.6 MCH 27.2 MCHC 29.4 L RDW 15.3 Plt Count 152 L MPV 12.4 H Immature Gran % (Auto) 0.7 H Neut % (Auto) 94.3 H Lymph % (Auto) 0.7 L [place] % (Auto) 4.1 Eos % (Auto) 0.0 Baso % (Auto) 0.2 Lymph # (Auto) 0.1 L [place] # (Auto) 0.8 Eos # (Auto) 0.0 Baso # (Auto) 0.0 Abs Immat Gran (auto) 0.13 H Absolute Neuts (auto) 18.2 H Absolute Nucleated RBC 0.000 Nucleated RBC % (auto) 0.0 Smear Tech's Comments VERIFIED PT 20.9 H INR 1.8 H VBG pH 7.35 VBG pCO2 89 VBG pO2 69 VBG HCO3 50 H VBG O2 Saturation 92.0 VBG Base Excess 19.5 Anion Gap 13 Estim Creat Clear Calc 33.7 Estimated GFR 48 Random Glucose 372 H* Lactic Acid 1.4 Calcium 8.6 Total Bilirubin 1.0 AST 36 H ALT 29 Alkaline Phosphatase 59 Troponin I High Sens 36.4 H B-Natriuretic Peptide 277 H Total Protein 6.6 Albumin 3.2 L Imaging Radiologist's Impressions: Impressions Chest X-Ray 06/30/24 09:43 IMPRESSION: Hypoexpanded right lung with right parahilar moderate opacity question chronic scarring/atelectasis. Infiltrate cannot be excluded. Increased pulmonary vascularity, question congestion. 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?for SOB and reported hypoxia in the 30s. Pt will be admitted to the hospital for treatment and further evaluation of acute on chronic hypoxemic and hypercapnic respiratory failure in the setting of COPD exacerbation. Acute on chronic hypoxic and hypercapnic respiratory failure in the setting of COPD exacerbation Pt with increasing SOB, difficulty breathing, cough, reportedly satting in the 30s at SNF Pt with 2 previous hospital admissions here within this month for respiratory failure secondary to CHF and then pneumonia Discharged 2 days prior on cefuroxime b.i.d. x5 days Will treat with Solu-Medrol, breathing treatments, guaifenesin Switch cefuroxime to doxycycline IV, started 06/30/2024 No sepsis: Tachycardia secondary to albuterol use, leukocytosis secondary to steroid use; lactic acid WNL Will check for RSV/COVID/flu Titrate supplemental O2 >90, wean as tolerated Monitor respiratory status Hyperglycemia Random glucose elevated at 372 Likely secondary to steroid use Pt does not carry diagnosis of diabetes Will cover with sliding scale insulin Check A1c Elevated troponin Troponin 36.4, similar to prior on 06/24 Pt asymptomatic, EKG without ischemic changes Likely type 2 in the setting of increased demand Will repeat troponin Persistent AFib Continue metoprolol, Eliquis HLD Continue statin Right lower lobe lesion Chest CT 120 found right lobe pulmonary lesion suspicious for neoplasm Follow-up outpatient Anxiety/agitation/restlessness Seroquel 12.5 mg p.r.n. DNR/DNI Attending:?Dr. Martin DVT Prophylaxis: On Eliquis Pt will require a hospitalization of at least two nights for treatment of?acute on chronic hypoxic and hypercapnic respiratory failure in the setting of COPD exacerbation. Given patient's multiple comorbidities, as well as multiple recent hospitalizations last discharged 2 days prior, pt will require hospital level care for administration of increased supplemental oxygen, IV steroids, breathing treatments, and IV antibiotics. Quality Stroke Does the patient have a stroke diagnosis?: No VTE Prior VTE?: No VTE Risk Level:: Medical - moderate - high VTE Device Contraindication: Treatment Not Indicated VTE Drug Contraindication: N/A - Med Ordered
[2024-06-30] MEDS: cefEPime HCl/D5W 2 GM/50 ML PIGGYBACK IV (13:00)
--- NOTE | 2024-06-30 13:25 | PHA.MEDREC ---
Addendum entered by Catherine Caldwell [facility] 06/30/24 13:45: reviewed, confirmed with regal that patient has only taken day 1 dosing of the prednisone and 1 dose of the cefuroxime Original Note: Pharmacy Consult ? Medication Reconciliation Pharmacy has completed the medication reconciliation. Utilized list from [facility] and spoke with patient and she confirmed she started the Cefuroxime and Prednisone regimens this morning when she took all her morning medications.
[2024-06-30 13:28] LABS: Estimated Average Glucose 160 mg/dL; Hemoglobin A1c % 7.2 % (<6.0); Total Hemoglobin (HGBA1C) 2905.9188 umol/L
--- OUTSIDE RECORDS SUMMARY | 2024-06-30 13:45 | XMS_ITS | Clinical Summary ---
Author Organization [address] [facility] Address [address] [place] [address] Phone Care Team Providers Care Computer Patternmaker Name Role Phone Kamar Swanson MD Primary Care Provider [phone] Encounters Date Type Department Care Team Description 06/23/2024 Lab Requisition [facility] - Main Lab [address] [facility] [employer] [place] [address] Kamar Swanson MD Essential (primary) [...] K/mcL LAB HEMETOLOGY METHOD 06/23/2024 9:25 AM [facility] LAB RBC 4.50 3.80 - 4.80 M/mcL LAB HEMETOLOGY METHOD 06/23/2024 9:25 AM [facility] LAB Hemoglobin 12.5 11.5 - 16.0 g/dL LAB HEMETOLOGY METHOD 06/23/2024 9:25 AM [facility] LAB Hematocrit 43.8 35.0 - 47.0 % LAB HEMETOLOGY METHOD 06/23/2024 9:25 AM [facility] LAB MCV 97.1 79.0 - 98.0 FL LAB HEMETOLOGY METHOD 06/23/2024 9:25 AM [facility] LAB MCH 27.7 27.0 - 32.0 pcg LAB HEMETOLOGY METHOD 06/23/2024 9:25 AM EST [facility] LAB MCHC 28.5(L) 32.0 - 37.0 g/dL LAB HEMETOLOGY METHOD 06/23/2024 9:25 AM EST [facility] LAB RDW 15.0 11.0 - 15.0 % LAB HEMETOLOGY METHOD 06/23/2024 9:25 AM [facility] LAB Platelets 139 130 - 400 K/mcL LAB HEMETOLOGY METHOD 06/23/2024 9:25 AM EST [facility] LAB MPV 13.2(H) 7.0 - 11.0 FL LAB HEMETOLOGY METHOD 06/23/2024 9:25 AM [facility] LAB NRBC 0.0 <1.0 % LAB HEMETOLOGY METHOD 06/23/2024 9:25 AM [facility] LAB NRBC Absolute 0.00 <0.10 K/mcL LAB HEMETOLOGY METHOD 06/23/2024 9:25 AM [facility] LAB Blood Venous blood specimen / Unknown Venipuncture / Unknown 06/23/2024 6:15 AM EST 06/23/2024 8:43 AM EST Kamar Swanson MD LAB BLOOD ORDERABLES [facility] LAB [address] [place] [address], * (ABNORMAL) Comprehensive metabolic panel (06/23/2024 6:15 AM EST) Sodium 140 133 - 145 mmol/L LAB CHEMISTRY METHOD 06/23/2024 11:51 AM [facility] Potassium 3.3(L) 3.5 - 5.5 mmol/L LAB CHEMISTRY METHOD 06/23/2024 11:51 AM [facility] LAB Chloride 96 96 - 110 mmol/L LAB CHEMISTRY METHOD 06/23/2024 11:51 AM [facility] CO2 42(HH) 21 - 32 mmol/L LAB CHEMISTRY METHOD 06/23/2024 11:51 AM [facility] LAB Comment:Results verified by repeat testing Anion Gap 2(L) 3 - 11 LAB CHEMISTRY METHOD 06/23/2024 11:51 AM [facility] LAB Glucose 160(H) 70 - 100 mg/dL LAB CHEMISTRY METHOD 06/23/2024 11:51 AM [facility] BUN 45(H) 5 - 25 mg/dL LAB CHEMISTRY METHOD 06/23/2024 11:51 AM [facility] Creatinine 0.99 0.50 - 1.10 mg/dL LAB CHEMISTRY METHOD 06/23/2024 11:51 AM [facility] LAB eGFR 55(L) >=60 mL/min/1. 73m2 LAB CHEMISTRY METHOD 06/23/2024 11:51 AM [facility] LAB Comment:Calculation based on the??Chronic Kidney Disease Epidemiology Collaboration (CKD-EPI) equation refit??without adjustment for race. BUN/Creatinine Ratio 45.5 LAB CHEMISTRY METHOD 06/23/2024 11:51 AM [facility] Calcium 8.5 8.5 - 10.5 mg/dL LAB CHEMISTRY METHOD 06/23/2024 11:51 AM [facility] LAB AST (SGOT) 19 10 - 42 unit/L LAB CHEMISTRY METHOD 06/23/2024 11:51 AM [facility] ALT (SGPT) 21 10 - 60 unit/L LAB CHEMISTRY METHOD 06/23/2024 11:51 AM [facility] LAB Alkaline Phosphatase 54 42 - 121 unit/L LAB CHEMISTRY METHOD 06/23/2024 11:51 AM [facility] Total Protein 6.5 6.0 - 8.0 g/dL LAB CHEMISTRY METHOD 06/23/2024 11:51 AM [facility] Albumin 3.1(L) 3.2 - 5.0 g/dL LAB CHEMISTRY METHOD 06/23/2024 11:51 AM EST [facility] Total Bilirubin 1.5(H) 0.0 - 1.4 mg/dL LAB CHEMISTRY METHOD 06/23/2024 11:51 AM EST [facility] LAB Blood Venous blood specimen / Unknown Venipuncture / Unknown 06/23/2024 6:15 AM EST 06/23/2024 8:43 AM EST Kamar Swanson MD LAB BLOOD ORDERABLES [facility] [address] [place] [address], from Last 3 Months Care Teams Computer Patternmaker Relationship Specialty Start Date End Date Kamar Swanson MD [address] [facility] [address] [place] [phone] PCP - General Family Medicine 06/23/24
--- OUTSIDE RECORDS SUMMARY | 2024-06-30 13:45 | XMS_ITS | Encounter Summary ---
Author Organization [facility] Address [address] [place] [address] Care Team Providers Care Plumbing Warehouse Helper Name Role Phone Kamar Swanson MD Primary Care Provider [phone] Encounter Details Date Type Department Care Team (Late st Contact Info) Description 06/23/2024 Lab Requisition [facility] - Main Lab [address] [place] [address] Kamar Swanson MD 38 [facility] [address] [place], [address] Essential (primary) hypertension; Chronic obstructive pulmonary [...] LAB CHEMISTRY METHOD 06/23/2024 11:51 AM EST [facility] Potassium 3.3(L) 3.5 - 5.5 mmol/L LAB CHEMISTRY METHOD 06/23/2024 11:51 AM [facility] Chloride 96 96 - 110 mmol/L LAB CHEMISTRY METHOD 06/23/2024 11:51 AM [facility] LAB CO2 42(HH) 21 - 32 mmol/L LAB CHEMISTRY METHOD 06/23/2024 11:51 AM [facility] LAB Comment:Results verified by repeat testing Anion Gap 2(L) 3 - 11 LAB CHEMISTRY METHOD 06/23/2024 11:51 AM [facility] Glucose 160(H) 70 - 100 mg/dL LAB CHEMISTRY METHOD 06/23/2024 11:51 AM [facility] BUN 45(H) 5 - 25 mg/dL LAB CHEMISTRY METHOD 06/23/2024 11:51 AM [facility] Creatinine 0.99 0.50 - 1.10 mg/dL LAB CHEMISTRY METHOD 06/23/2024 11:51 AM [facility] LAB eGFR 55(L) >=60 mL/min/1. 73m2 LAB CHEMISTRY METHOD 06/23/2024 11:51 AM [facility] LAB Comment:Calculation based on the??Chronic Kidney Disease Epidemiology Collaboration (CKD-EPI) equation refit??without adjustment for race. BUN/Creatinine Ratio 45.5 LAB CHEMISTRY METHOD 06/23/2024 11:51 AM [facility] Calcium 8.5 8.5 - 10.5 mg/dL LAB CHEMISTRY METHOD 06/23/2024 11:51 AM [facility] AST (SGOT) 19 10 - 42 unit/L LAB CHEMISTRY METHOD 06/23/2024 11:51 AM [facility] ALT (SGPT) 21 10 - 60 unit/L LAB CHEMISTRY METHOD 06/23/2024 11:51 AM [facility] LAB Alkaline Phosphatase 54 42 - 121 unit/L LAB CHEMISTRY METHOD 06/23/2024 11:51 AM [facility] Total Protein 6.5 6.0 - 8.0 g/dL LAB CHEMISTRY METHOD 06/23/2024 11:51 AM [facility] Albumin 3.1(L) 3.2 - 5.0 g/dL LAB CHEMISTRY METHOD 06/23/2024 11:51 AM [facility] Total Bilirubin 1.5(H) 0.0 - 1.4 mg/dL LAB CHEMISTRY METHOD 06/23/2024 11:51 AM [facility] Blood Venous blood specimen / Unknown Venipuncture / Unknown 06/23/2024 6:15 AM EST 06/23/2024 8:43 AM EST Kamar Swanson MD LAB BLOOD ORDERABLES [facility] [address] [place] [address], * (ABNORMAL) Complete blood count (06/23/2024 6:15 AM EST) WBC 18.5(H) 4.8 - 10.8 K/mcL LAB HEMETOLOGY METHOD 06/23/2024 9:25 AM [facility] LAB RBC 4.50 3.80 - 4.80 M/[facility] LAB HEMETOLOGY METHOD 06/23/2024 9:25 AM [facility] LAB Hemoglobin 12.5 11.5 - 16.0 g/dL LAB HEMETOLOGY METHOD 06/23/2024 9:25 AM [facility] LAB Hematocrit 43.8 35.0 - 47.0 % LAB HEMETOLOGY METHOD 06/23/2024 9:25 AM [facility] LAB MCV 97.1 79.0 - 98.0 FL LAB HEMETOLOGY METHOD 06/23/2024 9:25 AM [facility] LAB MCH 27.7 27.0 - 32.0 pcg LAB HEMETOLOGY METHOD 06/23/2024 9:25 AM [facility] LAB MCHC 28.5(L) 32.0 - 37.0 g/dL LAB HEMETOLOGY METHOD 06/23/2024 9:25 AM EST [facility] RDW 15.0 11.0 - 15.0 % LAB HEMETOLOGY METHOD 06/23/2024 9:25 AM [facility] LAB Platelets 139 130 - 400 K/mcL LAB HEMETOLOGY METHOD 06/23/2024 9:25 AM EST [facility] LAB MPV 13.2(H) 7.0 - 11.0 FL LAB HEMETOLOGY METHOD 06/23/2024 9:25 AM EST [facility] NRBC 0.0 <1.0 % LAB HEMETOLOGY METHOD 06/23/2024 9:25 AM [facility] LAB NRBC Absolute 0.00 <0.10 K/mcL LAB HEMETOLOGY METHOD 06/23/2024 9:25 AM EST [facility] LAB Blood Venous blood specimen / Unknown Venipuncture / Unknown 06/23/2024 6:15 AM EST 06/23/2024 8:43 AM EST Kamar Swanson MD LAB BLOOD ORDERABLES [facility] [address] [place], [place] [address] [phone] documented in this encounter Visit Diagnoses Diagnosis Essential (primary) hypertension Unspecified essential hypertension Chronic obstructive pulmonary disease, unspecified (CMS/HCC) documented in this encounter Care Teams Plumbing Warehouse Helper Relationship Specialty Start Date End Date Kamar Swanson MD [address] [place] [phone] PCP - General Family Medicine 06/23/24 documented as of this encounter
--- OUTSIDE RECORDS SUMMARY | 2024-06-30 13:45 | XMS_ITS | Data Portability ---
Author Organization [facility] [employer] [facility], Main Office Address [address] [facility], [address] [place] [address] Care Team Providers Care Server Systems Administrator Name Role Phone MAXIMILIAN TREVIZO - 2ND FLOOR OTHER PO, KELY Primary Care Provider Assessment No assessment recorded. Plan of Treatment Reminders Order Date Submit Date Provider Last Modified By Organization Details Last Modified Time Details Appointments Initial Intake Note 2024 09:34A M Christy Mathias NP Not available Not available Not available Lab None recorded . Referral None recorded . Procedures None recorded . Surgeries None recorded . Imaging None recorded . Medication Orders None recorded . Patient TargetsNo targets recorded. Patient InstructionsNo instructions recorded. Reason for Referral None Reported. Problems Name Problem SNOMED Code Status Onset Date Resolution Date Notes Provider Name and Address Organization Details Recorded Time Atrial fibrillation 91101348 Active 2024 Christy Mathias NP [address] [facility], [address], [place], [address], [facility] [employer] 5 12:50:14 Hyperlipidemia 19025891 Active 2024 Christy Mathias NP [address] [facility], [address], [place], [address], [employer] 5 12:50:26 Transient cerebral ischemia 884038719 Active 2024 Christy Mathias NP [address] [facility], [address], [place], [address], [facility] [employer] 5 12:50:34 Chronic obstructive pulmonary disease 72413782 Active 2024 Christy Mathias NP [address] [facility], [address], [place], [address], [employer] 5 12:50:45 Malignant tumor of breast 271231883 Active 2024 Christy Mathias NP [address], [address], [place], [address], [employer] [facility] [facility] [facility] 5 12:51:12 Small cell carcinoma of lung 658607795 Active 2024 Christy Mathias NP [address], [address], [place], [address], [facility] [facility] 5 12:51:36 Heart failure 28283170 Active 2024 Christy Mathias NP [address], [address], [place], [address], [facility] [facility] [facility] [facility] 5 12:51:52 Coronary arterioscleros is 33812986 Active 2024 Christy Mathias NP [address], [address], [place], [address], [facility] [facility] [facility] [facility] 5 12:51:59 Hypoxia 864826135 Active 2024 Christy Mathias NP [address], [address], [place], [address], [facility] 5 12:52:05 Vitamin deficiency 68910105 Active 2024 Christy Mathias NP [address], [address], [place], [address], [facility] [facility] 5 12:52:36 Diabetes mellitus 71745691 Active 2024 Christy Mathias NP [address], [address], [place], [address], [facility] [facility] 5 12:53:02 Problem Notes None recorded. Medical Equipment None Reported. Allergies Allergen ID Allergen Name Allergen Category Reaction Reaction Severity Criticality Documentation Date Start Date Code Code System Note Provider Name and Address Organization Details Recorded Time [id number] Substance with sulfonami de structure and antibacte rial mechanism of action (substanc e) medicatio n Not available Not available unabletoasse 06/23/2024 60075 8003 SNOMED unkno wn Not Available Not Available Not Available [id number] Product containin g angiotens in-conver ting enzyme inhibitor (product) medicatio n other Not available unabletoasse 06/23/2024 00396 009 SNOMED unkno wn Not Available Not Available Not Available Vitals Date Recorded Heart rate Respiratory rate Body temperature Oxygen saturation Oxygen saturation in Arterial blood by Pulse oximetry Provider Name and Address Organization Details Last Updated DateTime 5 64 /min 18 /min 98.5 [degF] 97 % 97 % Christy Mathias NP [address] [facility], [address], [place], [address], [facility] [facility] [facility] 5 12:30:19 Date Recorded Heart rate Respiratory rate Oxygen saturation Oxygen saturation in Arterial blood by Pulse oximetry Inhaled oxygen flow rate Provider Name and Address Organization Details Last Updated DateTime 5 105 /min 24 /min 84 % 84 % 4 L/min Christy Mathias NP [address] [facility], [address], [place], [address], [facility] [facility] 5 13:22:13 Date Recorded Heart rate Respiratory rate Oxygen saturation Oxygen saturation in Arterial blood by Pulse oximetry Inhaled oxygen flow rate Provider Name and Address Organization Details Last Updated DateTime 5 122 /min 24 /min 76 % 76 % 5 L/min Christy Mathias NP [address] [facility], [facility] [address], [place], [address], [facility] [facility] 5 09:35:02 Social History Question Answer Notes LastModified by Organizat ion Details LastModified Time Tobacco Smoking Status Former Smoker Christy Mathias NP [address] [facility], [address], [place], [address], [employer] [facility] [facility] [facility] 06/23/2024 13:44:47 Do You Have An Advance Directive? No Information not available 06/23/2024 What Is Your Level Of Alcohol Consumption? None Information not available 06/23/2024 What Is Your Code Status? Other Wants To Talk With Daughter About It Information not available 06/23/2024 Where Do You Live? Apartment Senior Housing And Daughter Lives With Her [email or web address] Information not available 06/23/2024 What Was The [...] Immunizations Vaccine Type Date Status Note Provider Nam e and Address Organization Details Recorded Time Tdap 5 [facility] 06/23/2024 15:00:48 Pneumococcal conjugate PCV 13 6 completed [facility] 06/23/2024 15:01:07 Pneumococcal conjugate PCV 13 7 completed [facility] 06/23/2024 15:01:16 pneumococcal polysaccharide PPV23 1 completed [facility] 06/23/2024 15:01:31 influenza, unspecified formulation 3 completed [facility] 06/23/2024 15:01:47 SARS-COV-2 (COVID-19) vaccine, UNSPECIFIED 1 completed [facility] 06/23/2024 15:02:03 SARS-COV-2 (COVID-19) vaccine, UNSPECIFIED 1 completed [facility] 06/23/2024 15:02:18 SARS-COV-2 (COVID-19) vaccine, UNSPECIFIED 1 completed [facility] 06/23/2024 15:02:29 SARS-COV-2 (COVID-19) vaccine, UNSPECIFIED 2 completed [facility] 06/23/2024 15:02:49 SARS-COV-2 (COVID-19) vaccine, UNSPECIFIED 2 completed Ashley [facility] 06/23/2024 15:02:59 SARS-COV-2 (COVID-19) vaccine, UNSPECIFIED 3 completed Ashley [facility] 06/23/2024 15:03:08 zoster, unspecified formulation 8 completed Ashley [facility] 06/23/2024 15:03:25 zoster, unspecified formulation 0 completed Ashley [facility] 06/23/2024 15:03:31 zoster, unspecified formulation 0 completed [facility] 06/23/2024 15:03:38 Past Encounters Encounter ID Performer Location Encounter Start Date Encounter Closed Date Diagnosis/Indication Diagnosis SNOMED-CT Code Diagnosis ICD10 Code Diagnosis Note [id number] Christy Mathias NP [address] [address] 06/23/2024 12:27:24 06/24/2024 16:26:12 Hypoxia 173371029 R09.02 pt presented to ER with hypoxia and hypercabne a requiring bipap rescuesee hpi for full txcont2.5 liters at baseline for 02albutero l sulfate 90 mcg 2 puff q 6 hrs prnipratro pium albuterol neb q 6 hours prn sobtrelegy ellipta 1 inh qdfluticas one 1 spray each nare qd prnmonitor closely for sob and resp symptoms Heart failure 10423952 I 50.9 with afib as below RV [...] and cbc weekly while here Diabetes mellitus 564924 09 E11.9 no hx of? if BS related to steriods in hospitalre quired ISS in hospital ?possibly related to steriodsch suraj BS bid x 5 days and dcnot dc'd on sliding scale heremonito r Coronary arteriosclerosis 33835774 I25.10 atorvastat in 20 mg po qhsmonitor Vitamin deficiency 13745 002 E56.9 ascorbic ACID 500 MG PO BIDcholeca ciferol 25 mcg qdcyanocob alamin 1000mcg po qdmonitor Transient cerebral ischemia 229925145 G45.9 hx ofon eliquis and atorvastat in already Hyperlipidemia 02737133 E78.5 atorvastat in 20 mg po qhsmonitor Chronic ob structive pulmonary disease 03766883 J44.9 see hypoxia above with acute on chronic dxcpap recommende d but pt unable to use Malignant tumor of breast 828762733 C50.919 hx of breast ca ap lumpectomy 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 Small cell carcinoma of lung 135796696 C34.90 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 and chemothera pyof note: Chest CT showed RLL pulmonary lesion suspicious for neoplasm in [facility] with pulmonolog y oupt Asthenia 23738085 R53.1 PT OT eval and treatsuppo rtive caremonito r [id number] Christy Mathias NP [address] [address] 06/24/2024 13:21:34 06/28/2024 12:58:52 Hypoxia 300328582 R09.02 pt admitted on 06/22 with hypoxia and difficulty breathing not able to maintain o2 sat >84-85% on increased o2 of 4liters and sob.Send to [facility] ER for sob [id number] Christy Mathias NP [address] [address] 06/30/2024 09:34:03 06/30/2024 09:51:58 Hypoxia 191393161 R09.02 pt admitted on 06/29 with hypoxia and difficulty breathing not able to maintain o2 satpt sat up with pillows and breathing concentrat ionpt on 5 liters o2 mask with sat in the 70s and nc on 5liters also applied as she is in sever distress until ambulance can comeSend to [facility] for sob 911 Health Concerns Section Related Observation LastModified by Organization Detai ls LastModified Time None Recorded Concern Status LastModified by Organization Details LastModified Time None Recorded Advance Directives Directive N: Payers Encounter Date Sequence Insurance Name Policy Number Policy Smith Covered Member ID Smith Member ID Guarantor Name 06/23/2024 1 [facility] (MEDICAID HMO) Zenia Horta [id number] Zenia Horta 06/24/2024 1 [facility] (MEDICAID HMO) Zenia Horta [id number] Zenia Horta 06/30/2024 1 [facility] (MEDICAID HMO) Zenia Horta [id number] Zenia Horta Notes Date Note Type Note Provider Name and Address Organization Details Recorded Time 06/23/2024 text/html Pt is seen for a n initial intake summary. 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 She is [facility] at [facility] for continued care and rehab. Workup included: [...] received ISS inpatient,COPD treated with nebs and steriods. Her isosorbide mononitrate was dc'd other meds continued. On exam, Pt is on 3liters o2 and with mild sob today. She is alert and oriented x 3 and states she is getting better but remains somewhat sob in general. Has decreased breath sounds to the RML and RLL and has hx of lobectomy. Nursing to administer nebulizer. She reports she is not able to use a cpap and trialed on in the hospital and it was awful, but won't do it again. HERRON: low riskMOLST: pt would like daughter avail to address ROZ, daughter called by nursing Christy Mathias, JUANA [address] [facility], [address], [place], [address], [facility] - [employer] 06/23/2024 13:47:26 06/24/2024 text/html Pt is seen for a [...] is agreeable to sent to ER at [facility] for evaluation and nursing will notify daughter [...] yo f, with pmh above presents to [facility] 06/11-06/22/24 with 3 days of shortness of breath, leg edema, and low oxygen saturations in the 80s, and nonproductive cough unresolved with home nebs and increased o2 diagnosed with rapid afib and tachypnea with hypoxia. She is here at [facility] for continued care and rehab. Workup included: [...] Seems she has been followed with dr arriola outptDM not usually on meds at home, received ISS inpatient,COPD treated with nebs and steriods.Her isosorbide mononitrate was dc'd other meds continued. HERRON: low riskMOLST: pt would like daughter avail to address MOLST, daughter called by nursing Christy Mathias, JUANA [address] [facility], [address], [place], [address], [place] [employer] [facility] 06/24/2024 13:27:43 06/30/2024 text/html Pt is seen for a n initial intake. 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 She was treated with steroids, bipap, lasix, diltiazem, albuterol, abx, and she was sent to [facility] for rehab on 06/29 on 3liters o2 nc. Workup did show a RLL nodule which is known. On exam, she is is in acute distress with 02 sat in the 50s this am, use of accessory muscles, sob with dusky skin, states she can't breath, and on 5 liters mask. The mask has holes and likely not providing enough o2 and nc also applied with 5 liters for increased hypoxia as she is a nose breather with increase to 80% when both combined, sitting up straight this am. Facility only has ability to 5liters o2 on machines here. Her hr is 122 and irregular. An ambulance is called 911 for hypoxia and she remains a full code at this time per patient. of note:last admit 06/11-06/22/24 with 3 days of shortness of breath, leg edema, and low oxygen saturations in the 80s, and nonproductive cough unresolved with home nebs and increased o2 diagnosed with rapid afib and tachypnea with hypoxia. She is here at [facility] for continued care and rehab. HERRON: low riskMOLST: pt would like daughter avail to address ROZ, daughter called by nursing Christy Mathias NP [address] [facility], [address], [place], [address], [employer] [facility] 06/30/2024 09:51:57 OBGyn Episode No OBEpisode recorded.
--- OUTSIDE RECORDS SUMMARY | 2024-06-30 13:45 | XMS_ITS | Continuity of Care Document ---
Author Organization [facility] Address [address] [place] [address] Care Team Providers Care Mental Retardation Nurse Name Role Phone MAXIMILIAN TREVIZO - 2ND FLOOR OTHER KELY RODRIGUEZ Primary Care Provider [phone] Assessment No assessment recorded. Plan of Treatment [...] Address Organization Details Recorded Time Atrial fibrillation 37909253 Active 2024 Christy Mathias NP [address] [facility], [address], [place], [address], [facility] [employer] 5 12:50:14 Hyperlipidemia 90640559 Active 2024 Christy Mathias NP [address] [facility], [address], [place], [address], [facility] [employer] 5 12:50:26 Transient cerebral ischemia 235242519 Active 2024 Christy Mathias NP [address] [facility], [address], [place], [address], [facility] [employer] 5 12:50:34 Chronic obstructive pulmonary disease 34755436 Active 2024 Christy Mathias NP [address] [facility], [address], [place], [address], [facility] [employer] 5 12:50:45 Malignant tumor of breast 633065885 Active 2024 Christy Mathias NP [address], [address], [place], [address], [facility] 5 12:51:12 Small cell carcinoma of lung 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 Active 2024 Christy Mathias NP [address], [address], [place], [address], [facility] 5 12:51:36 Heart failure 05416100 Active 2024 Christy Mathias NP [address], [address], [place], [address], [facility] 5 12:51:52 Coronary arterioscleros is 10819289 Active 2024 Christy Mathias NP [address], [address], [place], [address], [facility] 5 12:51:59 Hypoxia 713536841 Active 2024 Christy Mathias NP [address], [place], [address], [facility] 5 12:52:05 Vitamin deficiency 41098441 Active 2024 Christy Mathias NP [address], [place], [address], [facility] 5 12:52:36 Diabetes mellitus 48281910 Active 2024 Christy Mathias NP [address], [place], [address], [facility] 5 12:53:02 Problem Notes None recorded. Medical Equipment None Reported. Allergies Allergen ID Allergen Name Allergen Category Reaction Reaction Severity Criticality Documentation Date Start Date Code Code System Note Provider Name and Address Organization Details Recorded Time [id number] 2824e Substance with sulfonami de structure and antibacte rial mechanism of action (substanc e) medicatio n Not available Not available unabletoasse 06/23/2024 39571 8003 SNOMED unkno wn Not Available Not Available Not Available [id number] 29b50 Product containin g angiotens in-conver ting enzyme inhibitor (product) medicatio n other Not available unabletoasse 06/23/2024 29795 009 SNOMED unkno wn Not Available Not Available Not Available Vitals Date Recorded Heart rate Respiratory rate Oxygen saturation Oxygen saturation in Arterial blood by Pulse oximetry Inhaled oxygen flow rate Provider Name and Address Organization Details Last Updated DateTime 5 105 /min 24 /min 84 % 84 % 4 L/min Christy Mathias NP [address] [facility], [address], [place], [address], [facility] 13:22:13 Social History Question Answer Notes LastModified by Organizat ion Details LastModified Time Tobacco Smoking Status Former Smoker Christy Mathias NP [address] [facility], [address], [place], [address], [facility] 06/23/2024 13:44:47 Do You Have An [...] Details Recorded Time Tdap 5 completed [facility] 06/23/2024 15:00:48 Pneumococcal conjugate PCV 13 6 completed Ashley Pavel null, [facility] 06/23/2024 15:01:07 Pneumococcal conjugate PCV 13 7 completed Ashley Pavel null, [facility] 06/23/2024 15:01:16 pneumococcal polysaccharide PPV23 1 completed [facility] 06/23/2024 15:01:31 influenza, unspecified formulation 3 completed [facility] 06/23/2024 15:01:47 SARS-COV-2 (COVID-19) vaccine, UNSPECIFIED 1 completed [facility] 06/23/2024 15:02:03 SARS-COV-2 (COVID-19) vaccine, UNSPECIFIED 1 completed [facility] 06/23/2024 15:02:18 SARS-COV-2 (COVID-19) vaccine, UNSPECIFIED 1 completed [facility] 06/23/2024 15:02:29 SARS-COV-2 (COVID-19) vaccine, UNSPECIFIED 2 completed Ashley Pavel null, [facility] 06/23/2024 15:02:49 SARS-COV-2 (COVID-19) vaccine, UNSPECIFIED 2 completed [facility], [facility] 06/23/2024 15:02:59 SARS-COV-2 (COVID-19) vaccine, UNSPECIFIED 3 completed [facility] 06/23/2024 15:03:08 zoster, unspecified formulation 8 [facility] 15:03:25 zoster, unspecified formulation 0 [facility] 15:03:31 zoster, unspecified formulation 0 [facility] 15:03:38 Past Encounters Encounter ID Performer Location Encounter Start Date Encounter Closed Date Diagnosis/Indication Diagnosis SNOMED-CT Code Diagnosis ICD10 Code Diagnosis Note [id number] Christy Mathias NP [facility] [address] [place] [address] 06/23/2024 12:27:24 06/24/2024 16:26:12 Hypoxia 319383062 R09.02 pt presented to ER with hypoxia and hypercabne a requiring bipap rescuesee hpi for full txcont2.5 liters at baseline for 02albutero l sulfate 90 mcg 2 puff q 6 hrs prnipratro pium albuterol neb q 6 hours prn sobtrelegy ellipta 1 inh qdfluticas one 1 spray each nare qd prnmonitor closely for sob and resp symptoms Heart failure 17843939 I 50.9 with afib as below RV [...] and cbc weekly while here Diabetes mellitus 994127 09 E11.9 no hx of? if BS related to steriods in hospitalre quired ISS in hospital ?possibly related to steriodsch suraj BS bid x 5 days and dcnot dc'd on sliding scale heremonito r Coronary arteriosclerosis 19258654 I25.10 atorvastat in 20 mg po qhsmonitor Vitamin deficiency 03941 002 E56.9 ascorbic ACID 500 MG PO BIDcholeca ciferol 25 mcg qdcyanocob alamin 1000mcg po qdmonitor Transient cerebral ischemia 320607083 G45.9 hx ofon eliquis and atorvastat in already Hyperlipidemia 91373232 E78.5 atorvastat in 20 mg po qhsmonitor Chronic ob structive pulmonary disease 33103638 J44.9 see hypoxia above with acute on chronic dxcpap recommende d but pt unable to use Malignant tumor of breast 315527321 C50.919 hx of breast 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 Small cell carcinoma of lung 073476695 C34.90 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 and chemothera pyof note: Chest CT showed RLL pulmonary lesion suspicious for neoplasm in [facility] with pulmonolog y oupt Asthenia 58803841 R53.1 PT OT eval and treatsuppo rtive caremonito r [id number] Christy Mathias NP [address] [address] 06/24/2024 13:21:34 06/28/2024 12:58:52 Hypoxia 741915355 R09.02 pt admitted on 06/22 with hypoxia and difficulty breathing not able to maintain o2 sat >84-85% on increased o2 of 4liters and sob.Send to [facility] for sob Health Concerns Section Related Observation LastModified by Organization Detai ls LastModified Time None Recorded Concern Status LastModified by Organization Details LastModified Time None Recorded Payers Encounter Date Sequence Insurance Name Policy Number Policy Smith Covered Member ID Smith Member ID Guarantor Name 06/24/2024 1 DANIA Behavio [facility] (MEDICAID HMO) Zenia Horta [id number] Zenia Horta Notes Date Note Type Note [...] is agreeable to sent to ER at [facility] for evaluation and nursing will notify daughter [...] yo f, with pmh above presents to [facility] 06/11-06/22/24 with 3 days of shortness of breath, leg edema, and low oxygen saturations in the 80s, and nonproductive cough unresolved with home nebs and increased o2 diagnosed with rapid afib and tachypnea with hypoxia. She is here at [facility] for continued care and rehab. [...] she has been followed with dr flako jean baptisteptDM not usually on meds at home, received ISS inpatient,COPD treated with nebs and steriods.Her isosorbide mononitrate was dc'd other meds continued. GOPAL: low riskMOLST: pt would like daughter avail to address ROZ, daughter called by nursing Christy Mathias, HOSPITALIST NOCTURNIST PHYSICIAN [address] [facility], [place], [address], [facility] 06/24/2024 13:27:43 OBGyn Episode No OBEpisode recorded.
--- OUTSIDE RECORDS SUMMARY | 2024-06-30 13:46 | XMS_ITS ---
Author Organization [facility] Address [address] [place] [address] Care Team Providers Care Child Care Sitter Name Role Phone Radha Ramsey Primary Care Provider Unavailabl e Lorena Santos Unavailable [phone] Allergies Allergen (clinical drug ingredient) Drug/Non Drug [...] Ordered Date Performed Result Body Sit e 75544-CMVRCYQ NAIL, 6 OR MORE 04/18/2024 N/A Encounters Encounter Location Date Provider Diagnosis [facility] [address] [address] 04/18/2024 Lorena Santos Tinea unguium B35.1 ; [...] Treatment Pending Test Test Name Order Date 11874-LVENMKR NAIL, 6 OR MORE 04/18/2024 Next Appt Details Follow Up: prn, Reason: Provider Name:Lorena Santos , 08/01/2024 11:00:00 AM, [address] [place] [address], [address], Procedure Notes * Category Sub-Category Detail Notes [...] use of a nail nipper and/or dremel-type multifocal button grinder, to a more viable healthy nail plate or bed tissue 6-10. Silver nitrate used for any petechial bleeding as necessary. Definitive antifungal treatment options have been reviewed and discussed with the patient. The patient chooses, no pharmaceutical tx - 14800 Progress Notes * Zenia SALINAS TruptiDOB:1935 (89 yo F)Acc No.[id number]:04/18/2024 Progress Note Patient:?Zenia SALINAS Provider:?Lorena Santos DPM :1935???Age:89 Y???Sex:Female D ate:04/18/2024 Address:[address] [place] [address], [facility] [address], [facility] Pcp:Radha Ramsey Subjective: * Chief Complaints: * [...] lung cataract surgery * Hospitalization/Major Diagno stic Procedure:[place]- bleeding internally 01/[facility] couldn't [facility] 01/13/24 * Family History:?Mother: dece [...] use of a nail nipper and/or dremel-type multifocal button grinder, to a more viable healthy nail plate or bed tissue 6-10. Silver nitrate used for any petechial bleeding as necessary. Definitive antifungal treatment options have been reviewed and discussed with the patient. The patient chooses, no pharmaceutical tx - 21540.? * Procedure Codes:?60698 DEBRI DE NAIL, 6 OR MORE, Modifiers: [...] Santos DPM Date:?2023 Generated for Gill hubbard/Hyacinth/Jaydonitting on:?06/30/2024 01:45 PM EST History and Physical Notes * [...]
--- OUTSIDE RECORDS SUMMARY | 2024-06-30 13:46 | XMS_ITS | Patient Health Record ---
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) Active confirmed Problem 9364424715874093 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 Vital Signs Blood pressure diastolic 71 mm Hg 04/18/2024 Height 5ft in 04/18/2024 Blood pressure systolic 131 mm Hg 04/18/2024 Weight 164 lbs 04/18/2024 BMI 32.03 kg/m2 04/18/2024 Procedures Procedure Date Ordered Date Performed Result Body Sit e 48109-KCQRVMK NAIL, 6 OR MORE 09/14/2023 N/A 39505-PPBGMMP NAIL, 6 OR MORE 12/31/2023 N/A 02506-Hqxeeqjf Plate 12/31/2023 N/A 98009-GEOCTHT NAIL, 6 OR MORE 04/18/2024 N/A Encounters Encounter Location Date Provider Diagnosis [address] [address] 09/14/2023 Lorena Black Pain in left foot M79.672 ; Tinea unguium B35.1 ; Pain in left ankle and joints of left foot M25.572 ; Bursitis of left foot M77.52 ; Pain in right toe(s) M79.674 ; Pain in left toe(s) M79.675 ; Hallux limitus, left 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 and Primary osteoarthritis of left foot M19.[address] [facility] [address] 12/31/2023 Lorena Black Tinea unguium B35.1 ; Edema, lower extremity R60.0 ; Pain in right toe(s) M79.674 ; Pain in left toe(s) M79.675 ; Ingrown nail L60.0 ; Neuropathy G62.9 and Neuropathic pain M79.[address] [facility] [address] 04/18/2024 Lorena Santos Tinea unguium B35.1 ; Edema, lower extremity R60.0 ; Pain in right toe(s) M79.674 ; Pain in left toe(s) M79.675 ; Neuropathy G62.9 and Neuropathic pain M79.[address] [address] 09/11/2023 Lorena Tom [address] [address] 04/14/2024 Lorena Santos Assessments Encounter Date Diagnosis [...] in left toe(s) (ICD-10 - M79.675) 09/14/2023 Pain in right toe(s) (ICD-10 - M79.674) 04/18/2024 Neuropathy (ICD-10 - G62.9) 12/31/2023 Ingrown nail (ICD-10 - L60.0) 09/14/2023 Pain in left toe(s) (ICD-10 - M79.675) 12/31/2023 Neuropathy (ICD-10 - G62.9) 04/18/2024 Neuropathic pain (ICD-10 - M79.2) 12/31/2023 Neuropathic pain (ICD-10 - M79.2) 09/14/2023 Hallux limitus, left (ICD-10 - M20.5X2) 09/14/2023 Primary osteoarthritis of left foot (ICD-10 - M19.072) Plan Of Treatment Pending Test Test Name Order Date X ray : Foot, left 3V 02/14/2013 32159-GAGOECZ NAIL, 6 OR MORE 08/29/2013 17867-RKVDBDY NAIL, 6 OR MORE 06/18/2023 49290-GZNWASX NAIL, 6 OR MORE 09/14/2023 55546-LVRRLWW NAIL, 6 OR MORE 05/09/2013 48895-VOKFHLA NAIL, 6 OR MORE 02/04/2011 18002-WBDICZO NAIL, 6 OR MORE 04/07/2011 36107-PYVGSOV NAIL, 6 OR MORE 12/29/2011 55984-YKYCCLQ NAIL, 6 OR MORE 04/19/2012 78718-VXNSENA NAIL, 6 OR MORE 08/02/2012 16717-WPPOCNW NAIL, 6 OR MORE 11/08/2012 56156-KNGUQCK NAIL, 6 OR MORE 02/14/2013 97237-YVCYNOG NAIL, 6 OR MORE 12/31/2023 84201-YTCRLYZ NAIL, 6 OR MORE 04/18/2024 72068-Teqcjwgt Plate 06/18/2023 15576-Iqufwhnl Plate 08/02/2012 90742-Fpaoyxpt Plate 04/19/2012 63517-Lsfrotpw Plate 04/07/2011 50492-Razmhaka Plate 12/31/2023 69731-Mrcnqmrt Plate 08/29/2013 13144-FAD 04/25/2013 40548-CAP 06/23/2011 54937- Debride <25 sq cm 07/10/2011 22633- Debride <25 sq cm 06/13/2013 08704- Debride <25 sq cm 09/01/2011 42863-EIPMQDN SKIN/TISSUE 05/09/2013 66837-FKQBFBU SKIN/TISSUE 06/02/2013 40941-ZPUTPPL SKIN/TISSUE 07/10/2011 49032-LFERPOY SKIN/TISSUE 08/04/2011 12675 I&D ABSCESS- SIMPLE,SINGLE 013 Next Appt Details Provider Name:Lorena Santos , 08/01/2024 11:00:00 AM, [address] [place], [address], Insurance Providers Payer Name Payer Address Payer Phone Subscriber Number Group Number Insured Name Patient Relationship to Insured Coverage Start Date Coverage End Date [facility] [employer] Claims [address] [place] [id number] Zenia Horta Self - patient is the insured Medical (General) History Medical History History ICD Code hypertension cancer CAD (cholesterol) Angina High blood pressure Scarlet fever Measles Mumps Chicken pox Transfusions Surgical History Surgery Date(Month/Year) cancer surgery lung cataract surgery Hospitalization History Reason Date(Month/Year) C- couldn't breathe 01/13/24 [facility] Blood Transfusion- bleeding in ternally 01/21
--- OUTSIDE RECORDS SUMMARY | 2024-06-30 13:46 | XMS_ITS ---
Author Organization [facility] Address [address] [place] [address] Care Team Providers Care Ground Host/Hostess Name Role Phone Radha Ramsey Primary Care Provider Lorena Dacosta Unavailable [phone] REASON FOR VISIT SD cx 04/14 Encounters Encounter Location Date Provider Diagnosis [facility] [address] [place] [address] 04/14/2024 Lorena Santos Plan Of Treatment Next Appt Details Provider Name:Lorena Santos , 08/01/2024 11:00:00 AM, [address] [place], [address], Progress Notes * Zenia SALINASDOB:1935 (89 yo F)Acc No.[id number]:04/14/2024 Patient:?Zenia SALINAS :1935???Age:89 Y???Sex:Female Address:[address], [address], [place], [address] * true * Date:? Generated for Printi ng/Faimang/eTransmitting on:?06/30/2024 01:45 PM EST
--- OUTSIDE RECORDS SUMMARY | 2024-06-30 13:46 | XMS_ITS ---
Author Organization [facility] Address [address] [place] [address] Care Team Providers Care Fork Lift Truck Operator Name Role Phone Radha Ramsey Primary Care Provider Lorena Dacosta Unavailable [phone] Encounters Encounter Location Date Provider Diagnosis [facility] [address] [place] [address] 04/14/2024 Lorena Santos Plan Of Treatment Next Appt Details Provider Name:Lorena Santos , 08/01/2024 11:00:00 AM, [address] [place], [address], Progress Notes * Zenia SALINASDOB:1935 (89 yo F)Acc No.[id number]:04/14/2024 Progress Note Patient:?Zenia SALINAS Provider:?Lorena Santos DPM :1935???Age:89 Y???Sex:Female D ate:04/14/2024 Address:[address], [address], [place] Pcp:Radha Ramsey Subjective: * Chief Complaints: * [...] DPM Date:?2023 Generated for Gill hubbard/Hyacinth/Jaydonitting on:?06/30/2024 01:46 PM EST
--- OUTSIDE RECORDS SUMMARY | 2024-06-30 13:46 | XMS_ITS | Continuity of Care Document ---
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 [employer] 5 12:50:26 Transient cerebral ischemia 031206429 Active 2024 Christy Mathias NP [address], [address], [place], [address], [facility] [employer] 5 12:50:34 Chronic obstructive pulmonary disease 43916848 Active 2024 Christy Mathias NP [address], [address], [place], [address], [facility] [employer] 5 12:50:45 Malignant tumor of breast 340530778 Active 2024 Christy Mathias NP [address], [address], [place], [address], [facility] 5 12:51:12 Small cell carcinoma of lung 559292801 Active 2024 Christy Mathias NP [address], [address], [place], [address], [facility] 5 12:51:36 Heart failure 83213271 Active 2024 Christy Mathias NP [address], [address], [place], [address], [facility] 5 12:51:52 Coronary arterioscleros is 56322982 Active 2024 Christy Mathias NP [address], [address], [place], [address], [facility] 5 12:51:59 Hypoxia 728944503 Active 2024 Christy Mathias NP [address], [address], [place], [address], [facility] 5 12:52:05 Vitamin deficiency 06771277 Active 2024 Christy Mathias NP [address], [address], [place], [address], [facility] 5 12:52:36 Diabetes mellitus 98463911 Active 2024 Christy Mathias NP [address], [address], [place], [address], [facility] 5 12:53:02 Problem Notes None recorded. Medical Equipment None Reported. Allergies Allergen ID Allergen Name Allergen Category Reaction Reaction Severity Criticality Documentation Date Start Date Code Code System Note Provider Name and Address Organization Details Recorded Time [id number] Substance with sulfonami de structure and antibacte rial mechanism of action (substanc e) medicatio n Not available Not available unabletoasse 06/23/2024 55179 8003 SNOMED unkno wn Not Available Not Available Not Available [id number] Product containin g angiotens in-conver ting enzyme inhibitor (product) medicatio n other Not [facility] 06/23/2024 26364 009 SNOMED unkno wn Not Available Not Available Not Available Vitals Date Recorded Heart rate Respiratory rate Oxygen saturation Oxygen saturation in Arterial blood by Pulse oximetry Inhaled oxygen flow rate Provider Name and Address Organization Details Last Updated DateTime 5 122 /min 24 /min 76 % 76 % 5 L/min Christy Mathias NP [address], [address], [place], [address], [facility] 5 09:35:02 Social History Question Answer Notes LastModified by Organizat ion Details LastModified Time Tobacco Smoking Status Former Smoker Christy Mathias NP [address], [address], [place], [address], [facility] 06/23/2024 13:44:47 Do You Have An Advance [...] Recorded Time Tdap 5 completed Ashley Pavel [facility], [facility] 06/23/2024 15:00:48 Pneumococcal conjugate PCV 13 6 completed Ashley Pavel null, [facility] 06/23/2024 15:01:07 Pneumococcal conjugate PCV 13 7 completed Ashley Pavel null, [facility] 06/23/2024 15:01:16 pneumococcal polysaccharide PPV23 1 completed Ashley Pavel [facility], [facility] 06/23/2024 15:01:31 influenza, unspecified formulation 3 completed Ashley Pavel [facility], [facility] 06/23/2024 15:01:47 SARS-COV-2 (COVID-19) vaccine, UNSPECIFIED 1 completed Ashley Pavel [facility], [facility] 06/23/2024 15:02:03 SARS-COV-2 (COVID-19) vaccine, UNSPECIFIED 1 completed Ashley Pavel [facility], [facility] 06/23/2024 15:02:18 SARS-COV-2 (COVID-19) vaccine, UNSPECIFIED 1 completed Ashley Pavel [facility], [facility] 06/23/2024 15:02:29 SARS-COV-2 (COVID-19) vaccine, UNSPECIFIED 2 completed Ashley Pavel null, [facility] 06/23/2024 15:02:49 SARS-COV-2 (COVID-19) vaccine, UNSPECIFIED 2 completed Ashley Pavel [facility], [facility] 06/23/2024 15:02:59 SARS-COV-2 (COVID-19) vaccine, UNSPECIFIED 3 completed Ashley Pavel [facility], [facility] 06/23/2024 15:03:08 zoster, unspecified formulation 8 [facility] 15:03:25 zoster, unspecified formulation 0 [facility] 15:03:31 zoster, unspecified formulation 0 [facility] 15:03:38 Past Encounters Encounter ID Performer Location Encounter Start Date Encounter Closed Date Diagnosis/Indication Diagnosis SNOMED-CT Code Diagnosis ICD10 Code Diagnosis Note [id number] Christy Mathias NP [facility] [address] [place] [address] 06/23/2024 12:27:24 06/24/2024 16:26:12 Hypoxia 910921741 R09.02 pt presented to ER with hypoxia and hypercabne a requiring bipap rescuesee hpi for full txcont2.5 liters at baseline for 02albutero l sulfate 90 mcg 2 puff q 6 hrs prnipratro pium albuterol neb q 6 hours prn sobtrelegy ellipta 1 inh qdfluticas one 1 spray each nare qd prnmonitor closely for sob and resp symptoms Heart failure 94626479 I 50.9 with afib as below RV [...] and cbc weekly while here Diabetes mellitus 233302 09 E11.9 no hx of? if BS related to steriods in hospitalre quired ISS in hospital ?possibly related to steriodsch suraj BS bid x 5 days and dcnot dc'd on sliding scale heremonito r Coronary arteriosclerosis 62544514 I25.10 atorvastat in 20 mg po qhsmonitor Vitamin deficiency 86282 002 E56.9 ascorbic ACID 500 MG PO BIDcholeca ciferol 25 mcg qdcyanocob alamin 1000mcg po qdmonitor Transient cerebral ischemia 156721481 G45.9 hx ofon eliquis and atorvastat in already Hyperlipidemia 69533743 E78.5 atorvastat in 20 mg po qhsmonitor Chronic ob structive pulmonary disease 63356893 J44.9 see hypoxia above with acute on chronic dxcpap recommende d but pt unable to use Malignant tumor of breast 033634946 C50.919 hx of breast ca ap lumpectomy 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 Small cell carcinoma of lung 254488337 C34.90 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 and chemothera pyof note: Chest CT showed RLL pulmonary lesion suspicious for neoplasm in [facility] with pulmonolog y oupt Asthenia 54440366 R53.1 PT OT eval and treatsuppo rtive caremonito r [id number] Christy Mathias NP [facility] [address] [address] 06/24/2024 13:21:34 06/28/2024 12:58:52 Hypoxia 605119366 R09.02 pt admitted on 06/22 with hypoxia and difficulty breathing not able to maintain o2 sat >84-85% on increased o2 of 4liters and sob.Send to [facility] ER for sob [id number] Christy Mathias NP [facility] [address] [address] 06/30/2024 09:34:03 06/30/2024 09:51:58 Hypoxia 336618994 R09.02 pt admitted on 06/29 with hypoxia and difficulty breathing not able to maintain o2 satpt sat up with pillows and breathing concentrat ionpt on 5 liters o2 mask with sat in the 70s and nc on 5liters also applied as she is in sever distress until ambulance can comeSend to [facility] ER for sob 911 Health Concerns Section Related Observation LastModified by Organization Detai ls LastModified Time None Recorded Concern Status LastModified by Organization Details LastModified Time None Recorded Payers Encounter Date Sequence Insurance Name Policy Number Policy Smith Covered Member ID Smith Member ID Guarantor Name 06/30/2024 1 [facility] (MEDICAID HMO) Zenia Horta [id number] Zenia Horta Notes Date Note Type Note Provider Name and Address Organization Details Recorded Time 06/30/2024 text/html Pt is seen for a n initial intake. pmh afib on eliquis, CAD, HFrEF (with EF 50-55%w/severely reduced RV systolic fx echo 2023), HLD, TIA, COPD on home o2 of 2.5 l/min, breast cancer sp lumpectomy and radiation, small cell CA of RUL sp resection and chemo Pt is a 89 yo f, with pmh above presents to [facility] 06/24-06/29 with hypoxia and was diagnosed with chf and pneumonia and afib with rvr. She was treated with steroids, bipap, lasix, diltiazem, albuterol, abx, and she was sent to [facility] for rehab on 06/29 on 3liters o2 [...] tachypnea with hypoxia. She is here at [facility] for continued care and rehab. HERRON: low riskMOLST: pt would like daughter avail to address MOLST, daughter called by nursing Christy Mathias, PIPE BENDER [address], [address], [place], [place], [address], [facility] - [facility] 06/30/2024 09:51:57 OBGyn Episode No OBEpisode recorded.
[2024-06-30 14:19] LABS: Troponin-I High Sensitivity 34.2 ng/L (<3.5-17.0)
[2024-06-30] MEDS: Doxycycline Hyclate 100 MG in 0.9 % Sodium Chloride 250 ML 166.67 MG IV (14:28)
[2024-06-30] MEDS: QUEtiapine Fumarate 25 MG TABLET 12.5 MG PO (14:28)
[2024-06-30 14:39] LABS: Influenza A PCR NEGATIVE (Negative); Influenza B PCR NEGATIVE (Negative); Resp Syncy Virus RNA Qual PCR NEGATIVE (Negative); SARS COV2 PCR INHOUSE NEGATIVE (Negative)
[2024-06-30] MEDS: levalbuterol HCL 1.25 MG/3 ML VIAL.NEB INHALE ×2 (15:49→19:09)
--- NOTE | 2024-06-30 16:22 | PC.NURSE ---
assumed care of patient at 1500. patient awake and alert upon assessment. was pleasant with staff. within about an hour patient appeared to be more confused, agitated, yelling out at time. provider made aware and stated he will see patient when she gets up to the floor. bed is ready for patient.
[2024-06-30 16:58] LABS: Glucose, Whole Blood 289 mg/dL (60-115)
[2024-06-30] MEDS: Insulin Lispro 100 UNIT/ML 3 ML VIAL SUBCUT ×2 (17:57→20:49)
[2024-06-30] MEDS: methylPREDNISolone Sod Succ 40 MG/ML VIAL IVPUSH (20:09)
[2024-06-30] MEDS: Ascorbic Acid 500 MG TABLET PO (20:10)
[2024-06-30] MEDS: Metoprolol Tartrate 50 MG TABLET PO (20:10)
[2024-06-30] MEDS: Atorvastatin Calcium 20 MG TABLET PO (20:10)
[2024-06-30] MEDS: Apixaban 5 MG TABLET PO (20:10)
[2024-06-30 20:23] LABS: Glucose, Whole Blood 245 mg/dL (60-115)
[2024-06-30] MEDS: 0.9 % Sodium Chloride Flush 3 ML SYRINGE IVFLUSH (23:41)
[2024-07-01] VITALS (10 sets, daily range): BP systolic 108–140; BP diastolic 52–80; PULSE 79–121; RESP 18–27; TEMP 36.1–36.5; O2SAT 84–94
--- NOTE | 2024-07-01 | ECG_ITS ---
Test Reason : acute hypoxia Blood Pressure : */* mmHG Vent. Rate : 104 BPM Atrial Rate : * BPM P-R Int : * ms QRS Dur : 74 ms QT Int : 318 ms P-R-T Axes : * 95 28 degrees QTcB Int : 418 ms Atrial fibrillation with rapid ventricular response Rightward axis Septal infarct (cited on or before 30-Jun-2024) Abnormal ECG When compared with ECG of 30-Jun-2024 10:05, No significant changes seen Referred By: Walter Martin Electronically Signed By: VIMAL WARE
[2024-07-01] MEDS: Doxycycline Hyclate 100 MG in 0.9 % Sodium Chloride 250 ML 166.67 MG IV (01:13)
[2024-07-01] MEDS: levalbuterol HCL 1.25 MG/3 ML VIAL.NEB INHALE ×2 (04:03→07:51)
[2024-07-01] MEDS: Morphine Sulfate 2 MG/ML CARTRIDGE 1 MG IVPUSH (04:37)
--- NOTE | 2024-07-01 07:26 | P.PNIM_ITS ---
Subjective Subjective Date of Service: 07/01/24 Interval History: f/u on acute hypoxic resp failure d/t copd exacerbation. Overnight her oxygen persistently dropped needing incremental adjustment in oxygen level and this morning O2 dropped to 80's, less responsive necessitating a CUT FILE CLERK call. Oxgen level incrased, given Iv steroid, bronchodilators, addtional Abx (Ceftriaxone), ABG, ECG and and repeat CXR Physical Exam 2 Vital Signs: Vital Signs: Last Vital Signs Temp 97.7 F 07/01/24 03:35 Pulse 85 07/01/24 04:03 Resp 18 07/01/24 04:03 BP 116/62 07/01/24 03:35 Pulse Ox 90 L 07/01/24 03:35 O2 Del Method Oxymask 07/01/24 03:35 O2 Flow Rate 12 07/01/24 03:35 Oxygen Flow Rate 7 06/30/24 09:45 BMI result Body Mass Index 30.0 Const: Other: General: Very somnolent, not in acute distress Resp: Coarse sounds, normal effort CVS: S1,S2,RRR GI: +BS, NT, no distention Skin: No rash Neuro: motor grossly intact Psych: flat Objective Data Active Medications Acetaminophen (Acetaminophen 325 Mg Tablet) 650 mg PO Q6H PRN PRN Reason: Pain, Mild 1-3,fever,headache Apixaban (Apixaban 5 Mg Tablet) 5 mg PO BID [facility] Last Admin: 06/30/24 20:10 Dose: 5 mg Documented By: GEORGI Ascorbic Acid (Ascorbic Acid 500 Mg Tablet) 500 mg PO BID [facility] Last Admin: 06/30/24 20:10 Dose: 500 mg Documented By: GEORGI Atorvastatin Calcium (Atorvastatin Calcium 20 Mg Tablet) 20 mg PO BEDTIME [facility] Last Admin: 06/30/24 20:10 Dose: 20 mg Documented By: GEORGI Bisacodyl (Bisacodyl 10 Mg Supp.Rect) 10 mg WI DAILY PRN PRN Reason: Bowel Management Calcium Carbonate (Calcium Carbonate 750 Mg Tab.Chew) 750 mg PO Q4H PRN PRN Reason: Heartburn Cyanocobalamin (Cyanocobalamin (Vitamin B-12) 1,000 Mcg Tablet) 1,000 mcg PO DAILY [facility] Dextrose (Dextrose 50 % 25 Gm/50 Ml Syringe) 25 gm IVPUSH Q15M PRN; Protocol PRN Reason: per Hypoglycemia Standing Ord. Diltiazem HCl (Diltiazem Hcl Cd 180 Mg Cap.Er.24h) 180 mg PO DAILY [facility]; Protocol Fluticasone Propionate (Fluticasone Propionate Nasal 16 Gm [place]) 1 spray NOSTRIL-B DAILY PRN PRN Reason: Allergy Symptoms Furosemide (Furosemide 40 Mg Tablet) 40 mg PO DAILY [facility]; Protocol Glucose (Glucose Gel 15 Gm Gel..Gram.) 15 gm PO Q15M PRN; Protocol PRN Reason: per Hypoglycemia Standing Ord. Doxycycline Hyclate 100 mg/ (Sodium Chloride) 250 mls @ 166.67 mls/hr IV Q12H [facility] Last Infusion: 07/01/24 02:55 Dose: Infused Documented By: GEORGI Insulin Human Lispro (Insulin Lispro 100 Unit/Ml 3 Ml Vial) 0 unit SUBCUT QIDACHS [facility]; Protocol Last Admin: 06/30/24 20:49 Dose: 4 unit Documented By: GEORGI Levalbuterol HCl (Levalbuterol Hcl 1.25 Mg/3 Ml Vial.Neb) 1.25 mg INHALE RQ4H WHILE AWAKE [facility] Last Admin: 06/30/24 19:09 Dose: 1.25 mg Documented By: JAROCHO Levalbuterol HCl (Levalbuterol Hcl 1.25 Mg/3 Ml Vial.Neb) 1.25 mg INHALE Q4H PRN PRN Reason: Shortness of Breath/Wheezing Last Admin: 07/01/24 04:03 Dose: 1.25 mg Documented By: JAROCHO Magnesium Hydroxide (Milk Of Magnesia 30 Ml Oral.Susp) 30 ml PO DAILY PRN PRN Reason: Constipation Magnesium Hydroxide (Milk Of Magnesia 30 Ml Oral.Susp) 30 ml PO DAILY PRN PRN Reason: Bowel Management Melatonin (Melatonin 3 Mg Tablet) 6 mg PO BEDTIME PRN PRN Reason: Insomnia Methylprednisolone Sodium Succinate (Methylprednisolone Sod Succ 40 Mg/Ml Vial) 40 mg IVPUSH Q12H [facility] Last Admin: 06/30/24 20:09 Dose: 40 mg Documented By: GEORGI Metoprolol Tartrate (Metoprolol Tartrate 50 Mg Tablet) 50 mg PO BID [facility]; Protocol Last Admin: 06/30/24 20:10 Dose: 50 mg Documented By: GEORGI Naloxone HCl (Naloxone Hcl 0.4 Mg/Ml Vial) 0.4 mg SUBCUT Q3M PRN PRN Reason: Sedation/Unresponsive Ondansetron HCl (Ondansetron Hcl 4 Mg/2 Ml Vial) 4 mg IVPUSH Q8H PRN PRN Reason: Nausea and Vomiting Potassium Chloride (Potassium Chloride Packet 20 Meq Packet) 20 meq PO Q48H [facility] Last Admin: 06/30/24 15:08 Dose: Not Given Documented By: IVAN Non-Admin Reason: See Note Comments: potassium 5.1 Sodium Biphosphate/Sodium Phosphate (Sodium Phosphate,[place]-Dibasic 133 Ml Enema) 118 ml WI DAILY PRN PRN Reason: Bowel Management Sodium Chloride (0.9 % Sodium Chloride Flush 3 Ml Syringe) 3 ml IVFLUSH QSHIFT [facility] Last Admin: 06/30/24 23:41 Dose: 3 ml Documented By: GEORGI Vitamin D (Cholecalciferol (Vitamin D3) 25 Mcg Tablet) 25 mcg PO DAILY [facility] Labs 06/30/24 10:12 06/30/24 10:12 Labs: Laboratory Results - last 24 hr 06/30/24 06/30/24 06/30/24 10:09 10:12 10:17 MCV 92.6 MCH 27.2 MCHC 29.4 L RDW 15.3 Plt Count 152 L MPV 12.4 H Immature Gran % (Auto) 0.7 H Neut % (Auto) 94.3 H Lymph % (Auto) 0.7 L [place] % (Auto) 4.1 Eos % (Auto) 0.0 Baso % (Auto) 0.2 Lymph # (Auto) 0.1 L [place] # (Auto) 0.8 Eos # (Auto) 0.0 Baso # (Auto) 0.0 Abs Immat Gran (auto) 0.13 H Absolute Neuts (auto) 18.2 H Absolute Nucleated RBC 0.000 Nucleated RBC % (auto) 0.0 Smear Tech's Comments VERIFIED PT 20.9 H INR 1.8 H VBG pH 7.35 VBG pCO2 89 VBG pO2 69 VBG HCO3 50 H VBG O2 Saturation 92.0 VBG Base Excess 19.5 Anion Gap 13 Estim Creat Clear Calc 33.7 Estimated GFR 48 POC Glucose Random Glucose 372 H* Estimat Average Glucose 160 Hemoglobin A1c % 7.2 H Lactic Acid 1.4 Calcium 8.6 Total Bilirubin 1.0 AST 36 H ALT 29 Alkaline Phosphatase 59 Troponin I High Sens 36.4 H B-Natriuretic Peptide 277 H Total Protein 6.6 Albumin 3.2 L Influenza Type A (PCR) Influenza Type B (PCR) RSV RNA Qual (PCR) SARS-CoV-2 RNA (RT-PCR) 06/30/24 06/30/24 06/30/24 13:48 16:54 20:20 MCV MCH MCHC RDW Plt Count MPV Immature Gran % (Auto) Neut % (Auto) Lymph % (Auto) [place] % (Auto) Eos % (Auto) Baso % (Auto) Lymph # (Auto) [place] # (Auto) Eos # (Auto) Baso # (Auto) Abs Immat Gran (auto) Absolute Neuts (auto) Absolute Nucleated RBC Nucleated RBC % (auto) Smear Tech's Comments PT INR VBG pH VBG pCO2 VBG pO2 VBG HCO3 VBG O2 Saturation VBG Base Excess Anion Gap Estim Creat Clear Calc Estimated GFR POC Glucose 289 H 245 H Random Glucose Estimat Average Glucose Hemoglobin A1c % Lactic Acid Calcium Total Bilirubin AST ALT Alkaline Phosphatase Troponin I High Sens 34.2 H B-Natriuretic Peptide Total Protein Albumin Influenza Type A (PCR) NEGATIVE Influenza Type B (PCR) NEGATIVE RSV RNA Qual (PCR) NEGATIVE SARS-CoV-2 RNA (RT-PCR) NEGATIVE Assessment and Plan (1) Chronic respiratory failure: Status: Acute (2) COPD (chronic obstructive pulmonary disease): Status: Acute (3) Congestive heart failure: Status: Acute Plan Pt is an 89-year-old female with a PMH significant for?paroxysmal AFib on Eliquis, HLD, TIA, COPD on chronic 2.5L home O2, HFrEF, breast cancer s/p lumpectomy and radiation, 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 Now admitted for acute and chronic hypoxic respiratory failure due to copd exacerbation Acute and chronic hypoxic and hypercapnic respiratory failure d/t COPD exacerbation -continue supplemental O2, goal O2 90 to 94 -IV steroid -Bronchodilators by Neb -empiric Doxycyline and Ceftriaxone for bronchitis -cxr, abg, iv Lasix, ecg for CUT FILE CLERK, plan discussed with her daughter and HCP including the possibility of transitioning to hospice care Hyperglycemia, d/t steroid , last A1C in jan 2024 5.9 -sliding scale insulin -check A1C Elevated troponin, 36-->, similar to previous pattern, no ecg changes, type 2 mi d/t demenad from copd ex Persistent AFib, rate controlled -Continue metoprolol, Eliquis Chronic HFrEF--no decompensation -continue Lasix HLD Continue statin Right lower lobe lesion, h/o breast CA Chest CT 120 found right lobe pulmonary lesion suspicious for neoplasm -Follow-up outpatient if desires further workup Anxiety/agitation/restlessness -Seroquel 12.5 mg p.r.n. DNR/DNI DVT Prophylaxis: On hospitalization for tx for acute resp failure with severe hypoxia d/t copd, need O2, iv steroid a abx ABG showed CO2 retention with unresponsiveness and put on BiPAP and per hospital protocol will be transfered to ICU, discussed with ICU doctor Quality Stroke Does the patient have a stroke diagnosis?: No VTE Prior VTE?: No VTE Risk Level:: Medical - moderate - high VTE Device Contraindication: Treatment Not Indicated VTE Drug Contraindication: N/A - Med Ordered
[2024-07-01] MEDS: methylPREDNISolone Sod Succ 40 MG/ML VIAL IVPUSH (07:46)
[2024-07-01 07:49] LABS: Glucose, Whole Blood 220 mg/dL (60-115)
[2024-07-01] MEDS: Furosemide 40 MG/4 ML VIAL IVPUSH (08:04)
[2024-07-01] MEDS: cefTRIAXone sodium 1 GM VIAL IVPUSH (08:04)
[2024-07-01 08:07] LABS: ABG Base Excess 14.2 mmol/L; ABG HCO3 43 mmol/L (22-26); ABG pCO2 81 mmHg (32-45); ABG pH 7.33 (7.35-7.45); ABG pO2 55 mmHg (83-108)
--- NOTE | 2024-07-01 08:16 | PC.NURSE ---
Patient c/o SOB on initial assessment,sat 81% on 12L ,rapid response was called at 0750,cxr done,IV Lasix administered,EKG done.Sat 87% on nonrebreather at 0808,patient not answering any questions,Dr. Martin notified,Respiratory is applying bipap at present.CHARITO Overton reported sat 90% on nonrebreather at 0815
--- NOTE | 2024-07-01 08:25 | PC.NURSE ---
BS 220,patient unable to eat ,Dr. Martin notified,no coverage given
[2024-07-01] MEDS: 0.9 % Sodium Chloride Flush 3 ML SYRINGE IVFLUSH (08:26)
--- NOTE | 2024-07-01 08:32 | PC.NURSE ---
Keyla RN notified patient placed on bipap,questioned need for transfer,Dr. Martin notified
--- NOTE | 2024-07-01 09:24 | PM.EVENT ---
Event Note Date of Service: 07/01/24 Event Note: Patient is a 89 Y F w/ hypertension, hyperlipidemia, diabetes mellitus, heart failure w/ reduced ejection fraction, atrial fibrillation on apixaban, prior lung cancer s/p RU lobectomy, COPD, as well as chronic hypoxic respiratory failure, on 3 L NC, w/ recent admission 06/11-06/28 d/t CHF vs COPD exacerbation, re-presenting to emergency department initially on 06/30 w/ dyspnea, found to be hypoxic, admitted to medicine for CHF vs COPD exacerbation management; ICU consulted on 07/01 d/t worsening dyspnea, found to have worsening hypercarbia, started on BiPAP; plan for diuresis for possible CHF and COPD management w/ BiPAP, duonebs, steroids, and antibiotics N: encephalopathy, likely toxic-metabolic; to monitor closely CV: possible CHF exacerbation, diuresis; atrial fibrillation on apixaban, diltiazem, metoprolol when tolerating PO R: acute on chronic mixed respiratory failure, likely multi-factorial, CHF and/or COPD; COPD management w/ duonebs, steroids, antibiotics; BiPAP, wean as tolerated GI: NPO while on BiPAP, otherwise modified diet : no acute issues; diuresis w/ furosemide, acetazolamide H: no acute issues; atrial fibrillation on apixaban ID: empiric ceftriaxone, azithromycin in setting of COPD exacerbation; do not suspect sepsis at this time E: diabetes mellitus; to monitor hypo-/hyper-glycemia P: no acute issues Time Spent With Patient Time: Total time managing care of this patient today ____ minutes.
--- NOTE | 2024-07-01 09:46 | PC.NURSE ---
Patient transported to ICU by [employer] and respiratory therapist
--- NOTE | 2024-07-01 09:55 | W.MHC.ACPN ---
Advanced Care Planning Note Advanced Care Planning Note Discussed with: family member(s) Time spent (in minutes): 15 Narrative: I called and introduced myself to Ms. Horta's daughter and healthcare proxy; I stated that I took care of Ms. Horta during her most recent admission; I offered a summary and clarifications regarding Ms. Horta's most recent and current admission and Ms. Horta's clinical status; we discussed goals of care as well; Ms. Daviss daughter reported that in the last weeks, Ms. Horta has expressed that she has wanted to be reunited with her who , and that Ms. Horta's daughter has comforted her and expressed that if that is what Ms. Horta wants, she can go to sleep now; given this, we discussed comfort-focused care, which Ms. Horta's daughter felt is appropriate at this time; Ms. Horta's daughter prefers we initiate comfort-focused care now, though she and Ms. Horta's grandaughter will not be coming to the hospital until later today; I expressed that Ms. Horta may very well pass away before she and her daughter arrive, for which she expressed understanding; I stated I would call her in the event Ms. Horta passes away and she is not yet in the hospital Problems Discussed (1) Chronic respiratory failure: (2) COPD (chronic obstructive pulmonary disease): (3) Congestive heart failure:
[2024-07-01] MEDS: Scopolamine 1.5 MG PATCH.TD.3 TRANSDERMA (10:16)
[2024-07-01] MEDS: Morphine Sulfate 2 MG/ML CARTRIDGE IVPUSH (10:16)
[2024-07-01] MEDS: fentaNYL citrate/NS 1,000 MCG/100 ML PLAST..BAG 2.5 MCG IVCONT (10:17)
--- NOTE | 2024-07-01 10:35 | P.DN_ITS ---
Discharge Sum: Prov Provider Primary care physician: Radha Ramsey MD Pronouncing clinician: Gabriela Lima Discharge Sum: Diag Contributing Factors (1) Acute and chronic respiratory failure with hypercapnia: (2) COPD (chronic obstructive pulmonary disease): (3) Congestive heart failure: Discharge Sum: Summary Date and Time Date of admission: 06/30/24 13:28 Date of : 07/01/24 Time of : 12:06 Summary Details: Ms. Horta is a 89-year-old female with hypertension, hyperlipidemia, diabetes mellitus, heart failure with reduced ejection fraction, atrial fibrillation on apixaban, prior lung cancer status post right upper lobectomy, COPD, as well as chronic hypoxic respiratory failure, on 3 L NC, with recent admission 06/11- 06/28 due to CHF vs COPD exacerbation, who re-presented to emergency department on 06/30 with dyspnea, found to be hypoxic and admitted to medicine for CHF vs COPD exacerbation management; ICU consulted on 07/01 due to worsening encephalopathy and was found to have worsening hypercarbia; Ms. Horta was started on BiPAP and transferred to the ICU; a goals of care conversation was had with Ms. Horta's daughter and healthcare proxy and the decision was made to transition Ms. Horta to comfort-focused care; Ms. Horta with her grandaughter and grandson at her beside at 12:06. Additional Data Confirmation of as documented by pronouncing clinician: no pulse, no respirations, no heart sounds and pupils fixed and dilated Family: at bedside Attending physician: Gabriela Lima MD
[2024-07-01] MEDS: LORazepam 2 MG/ML VIAL 0.5 MG IVPUSH (10:37)
[2024-07-01] MEDS: Haloperidol Lactate 5 MG/ML VIAL 1 MG IVPUSH (10:40)
--- NOTE | 2024-07-01 10:46 | MHC.CM.PN ---
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 She passed prior to CM assessment.
--- NOTE | 2024-07-12 14:20 | P.CDIM_ITS ---
PROVIDER RESPONSE TEXT: To clarify, the appropriate diagnosis supported by the clinical indicators: Acute QUERY TEXT: PHYSICIAN'S DOCUMENTATION REQUEST Date of Query: 07/01/2024 09:25 AM EST Patient Name: Zenia Horta Admit Date: 06/30/2024 Dear Walter Martin MD, A review of the medical record indicates additional documentation may be needed. Please review below and update the documentation accordingly. Clinical Indicators: Hospitalist Progress Note of 07/01/24 states treatment with empiric Doxycycline and Ceftriaxone for Br onchitis Clarify which of the following accurately represents the acuity of the Bronchitis. Possible options might include: Acute Acute on chronic Compensated Chronic stable condition Remission Other (explain) Clinically unable to determine (explain) Thank you, Anat ePterson RN Use of terms such as suspected, likely, concern for, or probable (associated with a specific diagnosi s that is being evaluated, monitored, or treated as if it exists) are acceptable and can be coded in the inpatient se tting, when documented at the time of discharge. Please use your independent medical judgment in providing your response. THIS QUERY IS PART OF THE PERMANENT MEDICAL RECORD
== END 2024-07-01 12:06 | disposition expired | DRG 190 ==
LOC: HO.ED 12:22 → HO.EDOVER 13:58 → HO.S3 15:36 → HO.ICU 07-01 09:23
PROVIDERS: Internal Medicine; Admitting Provider Student in an Organized Health Care Education/Training Program; Emergency Provider Emergency Medicine; PCP Internal Medicine; Visit Provider Internal Medicine Critical Care Medicine
DX: J44.1 Chronic obstructive pulmonary disease with (acute) exacerbation (principal); G92.8 Other toxic encephalopathy; J96.21 Acute and chronic respiratory failure with hypoxia; J96.22 Acute and chronic respiratory failure with hypercapnia; C78.01 Secondary malignant neoplasm of right lung; I48.19 Other persistent atrial fibrillation; I50.22 Chronic systolic (congestive) heart failure; Z51.5 Encounter for palliative care; I11.0 Hypertensive heart disease with heart failure; J44.0 Chronic obstructive pulmonary disease with (acute) lower respiratory infection; E78.5 Hyperlipidemia, unspecified; Z66 Do not resuscitate; J20.9 Acute bronchitis, unspecified; I25.10 Atherosclerotic heart disease of native coronary artery without angina pectoris; Z20.822 Contact with and (suspected) exposure to COVID-19; Z85.3 Personal history of malignant neoplasm of breast; Z90.2 Acquired absence of lung [part of]; Z85.118 Personal history of other malignant neoplasm of bronchus and lung; Z87.01 Personal history of pneumonia (recurrent); Z87.891 Personal history of nicotine dependence; Z79.01 Long term (current) use of anticoagulants; Z79.899 Other long term (current) drug therapy
CPT/HCPCS: 0241U; 36415; 71045; 80053; 82803; 82947; 83036; 83605; 83880; 84484; 85025; 85610; 87040; 93005; 94640; 94660; 99285; J0692; J0696; J1630; J1940; J2060; J2270; J2919; J3010

== ENCOUNTER → 2024-06-30 09:43 | Outpatient (BNV) | payer MEDICARE, MEDICAID, SELFPAY | PROVIDERS: Emergency Provider Emergency Medicine; PCP Internal Medicine; Visit Provider Radiology Diagnostic Radiology | DX: R05.9 Cough, unspecified (principal) | CPT/HCPCS: 71045 ==

== ENCOUNTER 2024-06-30 13:28 | Outpatient (BNV) | payer MEDICARE, SELFPAY | END 2024-07-01 08:05 | PROVIDERS: Admitting Provider Student in an Organized Health Care Education/Training Program; Emergency Provider Emergency Medicine; PCP Internal Medicine; Visit Provider Radiology Diagnostic Radiology | DX: J44.1 Chronic obstructive pulmonary disease with (acute) exacerbation (principal) | CPT/HCPCS: 71045 ==

== ENCOUNTER → 2024-06-30 13:28 | Outpatient (BNV) | payer MEDICARE, MEDICAID, SELFPAY | PROVIDERS: Admitting Provider Student in an Organized Health Care Education/Training Program; Emergency Provider Emergency Medicine; PCP Internal Medicine; Visit Provider Student in an Organized Health Care Education/Training Program | DX: J96.11 Chronic respiratory failure with hypoxia (principal); J43.9 Emphysema, unspecified; I50.9 Heart failure, unspecified; J44.1 Chronic obstructive pulmonary disease with (acute) exacerbation; J96.21 Acute and chronic respiratory failure with hypoxia | CPT/HCPCS: 99223; 99233 ==